=== PATIENT | female | born 1955 | race Two or more races ===

== ENCOUNTER 2019-03-17 13:25 | Inpatient (IN) | payer MEDICAID ==
[~2019-03-17] VITALS: Ht 165.1 cm; Wt 60.1 kg
--- NOTE | 2019-03-17 13:45 | NUR ---
G-TUBE REPLACEMENT S/P G-TUBE DISLODGED. PT NON VERBAL, EYES OPEN, ON TRACH, RR EVEN & UNLABORED. PT SKIN INTACT, PLACED ON CHICK ROOM SUPERVISOR & ON TRACH VENT. AWAITING EVAL BY ERMD & WILL CONT TO MONITOR.
--- NOTE | 2019-03-17 14:41 | NUR ---
DR YOUNG SPEAKING WITH DR MCMILLAN
[2019-03-17] MEDS ORDERED: NA P133E RC (15:09)
[2019-03-17] MEDS ORDERED: CHLO473M5 MM (15:09)
[2019-03-17] MEDS ORDERED: FOLI0.8T GT (15:09)
[2019-03-17] MEDS ORDERED: GLUC1KIT IM (15:09)
[2019-03-17] MEDS ORDERED: INSU100V7 SQ ×2 (15:09)
[2019-03-17] MEDS ORDERED: INSU100V27 SQ (15:09)
[2019-03-17] MEDS ORDERED: AMLO5TAB9 GT (15:09)
[2019-03-17] MEDS ORDERED: ZINC1CAP2 GT (15:09)
[2019-03-17] MEDS ORDERED: MULT-447 GT (15:09)
[2019-03-17] MEDS ORDERED: ACET-2605 GT (15:09)
[2019-03-17] MEDS ORDERED: HEPA50008 SQ (15:09)
[2019-03-17] MEDS ORDERED: ALBU2.5V38 IH (15:09)
[2019-03-17] MEDS ORDERED: VIT500LI GT (15:09)
[2019-03-17] MEDS ORDERED: NUT.237L30 GT (15:09)
[2019-03-17] MEDS ORDERED: ACET-868 GT (15:09)
[2019-03-17] MEDS ORDERED: BISA10SU11 RC (15:09)
[2019-03-17] MEDS ORDERED: MAGN400O6 GT (15:09)
[2019-03-17] MEDS ORDERED: FAMO20TA8 GT (15:09)
[2019-03-17] MEDS ORDERED: CHLO118L6 TP (15:09)
[2019-03-17] MEDS ORDERED: IPRA3AMP23 IH (15:09)
--- NOTE | 2019-03-17 15:11 | NUR ---
PAGED DR EJ HAGER
--- NOTE | 2019-03-17 16:18 | NUR ---
DR. CASTILLO @ BS FOR GTUBE REPLACEMENT.
[2019-03-17] MEDS ORDERED: ZOLPIDEM TARTRATE 5 MG TABLET PO PRN (16:30)
[2019-03-17] MEDS ORDERED: MAGNESIUM HYDROXIDE 30 ML UDC GT PRN (16:30)
[2019-03-17] MEDS ORDERED: ACETAMINOPHEN 325 MG TABLET PO PRN ×2 (16:30)
[2019-03-17] MEDS ORDERED: Medication Not On Formulary EA (Glucagon,Human Recombinant (Glucagon Emergency Kit) 1 MG IM PRN (16:30)
[2019-03-17] MEDS ORDERED: BISACODYL SUPP (10 MG) 10 MG/SUPP.RECT SUPP.RECT RC PRN (16:30)
[2019-03-17] MEDS ORDERED: Z GUARD REMEDY 2 OZ OINT TP PRN (16:30)
[2019-03-17] MEDS ORDERED: MAGNESIUM HYDROXIDE 30 ML UDC PO PRN (16:30)
[2019-03-17] MEDS ORDERED: MISCELLANEOUS MED 1 EA EA GT PRN (16:30)
[2019-03-17] MEDS ORDERED: ONDANSETRON HCL/PF 4 MG/2 ML VIAL IVP PRN (16:30)
[2019-03-17] MEDS ORDERED: NA PHOS,M-B/NA PHOS,DI-BA 1 EA ENEMA RC PRN (16:30)
[2019-03-17] MEDS ORDERED: ALBUTEROL FS 2.5 MG/3 ML VIAL.NEB IH PRN (16:30)
[2019-03-17] MEDS ORDERED: MAG HYDROX/AL HYDROX/SIMETH 30 ML UDC PO PRN (16:30)
[2019-03-17] MEDS ORDERED: DIATR MEGLU/DIATRIZOATE SODIUM 30 ML BOTTLE (GASTROGRAPHIN) ONE (16:42)
--- NOTE | 2019-03-17 17:20 | NUR ---
RN NOTES patient received on the ventilator at this time, no sob noted, patient shows no s/s of pain at this time. Photos taken and is in the chart. Patient on tele monitoring. R AC 20 patent at this time. Bed at the lowest setting, call light within reach, side rails up x2.
--- NOTE | 2019-03-17 17:25 | NUR ---
RT PATIENT RECEIVED TRACH'D ON [facility] VENT WITH SETTINGS PER MD ORDER. FIRST LINE SUPERVISOR DONE. AMBU BAG PLACED AT HEAD OF BED. SUCTIONED SMALL AMOUNTS OF THICK, PALE YELLOW SECRETIONS. NO SOB OR SIGNS OF DISTRESS NOTED AT THIS TIME. WILL CONTINUE TO MONITOR THE PATIENT FOR ANY CHANGES. Addendum: 03/17/19 at 1740 by ELVIRA FREDERICK RT Amended: Links added.
[2019-03-17 18:00] VITALS: BP 122/86
--- NOTE | 2019-03-17 18:34 | NUR ---
RN CLOSING NOTES Patient remains on a ventilator, no sob noted, no s/s of pain at this time. NSR 90's rhytm with R AC 20 with no IVF at this time. Patient on diaper. Bed at the lowest setting, call light within reach, will give report to NOC RN for NEIL bedside.
--- NOTE | 2019-03-17 19:30 | NUR ---
PLANT AND MACHINERY VALUER NOTES RECEIVED ON BED A/O X1-2,CONFUSED,ON TRACH TO VENT AC-22,TV-500,FIO2-40%,PEEP-5 TOLERATED WELL.PATIENT HAS A TENDENCY TO PULLED OUT TUBINGS,ESPECIALLY TRACH,S/P GT TUBE REPLACEMENT,POSITIVE PLACEMENT NOTED.NO SALINE LOCK.HOB ELEVATED.WILL CONTINUE TO MONITOR STATUS.
--- NOTE | 2019-03-17 19:30 | NUR ---
LABORATORY ASSOCIATE NOTES SR -96 ON TELE MONITOR.
--- NOTE | 2019-03-17 20:00 | NUR ---
HAND BUNCH MAKER NOTES REFUSED BP CHECK AND ORAL TEMP
[2019-03-17] MEDS: ALBUTEROL FS 2.5 MG/0.5 ML VIAL.NEB NEB SCH (20:20)
[2019-03-17] MEDS: IPRATROPIUM NEB FS 0.5 MG/2.5 ML AMPUL.NEB NEB SCH (20:20)
--- NOTE | 2019-03-17 20:40 | NUR ---
RECREATIONAL SPECIALIST NOTES MD PAGE FOR GT FEEDING.
--- NOTE | 2019-03-17 20:45 | NUR ---
BARN OPERATOR NOTES MD GOMEZ CALLED BACK, MADE AWARE OF GT FEEDING AND SAID OKAY TO START.
--- NOTE | 2019-03-17 20:50 | NUR ---
GIS ADMINISTRATOR NOTES PATIENT ATTEMPTED TO PULL OUT TRACH TUBINGS,ALSO SHE PULLED OUT SALINE LOCK ON RIGHT AC,HOSPITALIST KIMBERLI MADE AWARE,WITH ORDER FOR BILATERAL SOFT RESTRAINTS,NO SITTER AVAILABLE.
--- NOTE | 2019-03-17 20:53 | NUR ---
ACCREDITED LEGAL SECRETARY NOTES STARTED ON BILATERAL SOFT RESTRAINTS ORDERED.
[2019-03-17] MEDS: CHLORHEXIDINE GLUCONATE 15 ML UDC MM SCH (21:00)
[2019-03-17] MEDS: HEPARIN SODIUM, PORCINE 5000 UNITS/1 ML VIAL SQ SCH (21:12)
--- NOTE | 2019-03-17 21:30 | NUR ---
PLOWING GARDENS NOTES ACCU-CHECK BLOOD SUGAR CHECK 112,NO INSULIN COVERAGE.PATIENT REFUSED LANTUS.TO START WITH GT FEEDING.
[2019-03-17] MEDS: BLOOD SUGAR DIAGNOSTIC 1 EACH STRIP IN SCH (21:42)
[2019-03-17] MEDS: INSULIN GLARGINE, 100 UNIT/ML CARTRIDGE SQ SCH (22:00)
--- NOTE | 2019-03-17 23:18 | NUR ---
PT RCVD TRACH'D ON MECHANICAL VENT WITH CHARTED SETTINGS. PT TYRONE TX WELL. SX DONE. PT TRACH IS PATENT AND SECURE. VENT ALARMS APPEAR TO BE FUNCTIONING PROPERLY. AMBU BAG AT BEDSIDE. VENT PLUGGED INTO RED OUTLET. NO SOB NOTED. Addendum: 03/17/19 at 2320 by AKOSUA ARAGON RT Amended: Links added.
[2019-03-17] MEDS ORDERED: GLUCERNA 1.2 1,000 ML BOTTLE GT SCH (23:30)
[2019-03-18] VITALS (7 sets, daily range): BP systolic 119–155; BP diastolic 48–76
--- NOTE | 2019-03-18 | NUR ---
MS RN NOTES REFUSED ORAL TEMP
--- NOTE | 2019-03-18 00:48 | NUR ---
PROFESSIONAL ATHLETES COACH NOTES STARTED ON GT FEEDING GLUCERNA 1.2 AT 20ML/HR RATE,TO INCREASED TO 55M/HR TOLERATED
[2019-03-18] MEDS: IPRATROPIUM NEB FS 0.5 MG/2.5 ML AMPUL.NEB NEB SCH ×4 (01:45→19:54)
[2019-03-18] MEDS: ALBUTEROL FS 2.5 MG/0.5 ML VIAL.NEB NEB SCH ×4 (01:45→19:54)
--- NOTE | 2019-03-18 04:45 | NUR ---
ANALYTICS MANAGER NOTES PATIENT PULLED OUT GT WHILE HAVING MORNING CARE BY KADE RUBIO,NO BLEEDING NOTED.
--- NOTE | 2019-03-18 05:00 | NUR ---
REGISTERED NURSE NURSERY NOTES TRIED TO RE INSERT BUT ITS ALREADY CLOSED.CHARGE NURSE MADE AWARE.STOMA COVERED WITH DRY GAUZE.
--- NOTE | 2019-03-18 05:15 | NUR ---
RESTORATION SILVERSMITH NOTES DR GOMEZ MADE AWARE,WITH ORDER TO RE CONSULT FOR GI,TO NOTIFY MORNING HOSPITALIST TOO NOTED AND CARRIED OUT.CHARGE NURSE CARLEY AWARE.
[2019-03-18] MEDS: BLOOD SUGAR DIAGNOSTIC 1 EACH STRIP IN SCH ×4 (05:55→21:39)
--- NOTE | 2019-03-18 06:00 | NUR ---
LINUX ADMIN NOTES ACCU-CHECK BLOOD SUGAR CHECK 108,NO INSULIN COVERAGE.GT FEEDING ON HOLD
[2019-03-18 06:23] LABS: BASOPHILS # (AUTO) 0.1 /CMM (0.0-0.2); BASOPHILS % (AUTO) 0.6 % (0.0-2.0); HEMATOCRIT 27 % (33-45); HEMOGLOBIN 9.2 g/dL (11.5-14.8); LYMPHOCYTES # (AUTO) 4.1 /CMM (0.8-4.8); LYMPHOCYTES % (AUTO) 42.6 % (20.0-44.0); MEAN CORPUSCULAR HGB CONC 34 g/dl (31.0-36.0); MEAN CORPUSCULAR VOLUME 94 fL (82-100); MONOCYTES # (AUTO) 0.5 /CMM (0.1-1.30); MONOCYTES % (AUTO) 5.7 % (2.0-12.0); NEUTROPHILS # (AUTO) 4.5 /CMM (1.8-8.9); NEUTROPHILS % (AUTO) 47.1 % (43.0-81.0); PLATELET COUNT (AUTO) 584 /CMM (150-450); RED BLOOD CELL COUNT(AUTO) 2.92 MIL/uL (4.0-5.2); WHITE BLOOD COUNT (AUTO) 9.6 K/uL (4.3-11.0)
--- NOTE | 2019-03-18 06:33 | NUR ---
WALLPAPER INSPECTOR NOTES CALM AND QUIET AT THE MOMENT.GT OUT,AWAITING GI CONSULT,GT FEEDING ON HOLD.STILL ON BILATERAL SOFT RESTRAINTS.VENT SETTINGS TOLERATED WELL.IN NO ACUTE DISTRESS.WILL ENDORSE TO DAY NURSE FOR NEIL.
[2019-03-18 06:50] LABS: CALCIUM, SERUM 9.2 mg/dL (8.5-10.1); CREATININE 2.3 mg/dL (0.6-1.3); MAGNESIUM 2.5 mg/dL (1.8-2.4); PHOSPHORUS 5.2 mg/dL (2.5-4.9); POTASSIUM 3.5 mmol/L (3.5-5.1)
--- NOTE | 2019-03-18 07:45 | NUR ---
TELE/RN NOTE THE PATIENT IS RECEIVED IN BED. ALERT AND ORIENTED X2. ON VENT AND TRACH AND TOLERATES IT WELL. LEFT HAND G 22 PATENT AND SALINE LOCKED. GT SITE WITH NO GT. DR CASTILLO IS MADE AWARE. BED LOW AND LOCKED. SIDE RAILS UP X3. CALL LIGHT WITHIN REACH. WILL CONTINUE TO MONITOR.
[2019-03-18] MEDS: FOLIC ACID 1 MG TABLET GT SCH (09:00)
[2019-03-18] MEDS: MULTIVIT W/MINERALS 1 TAB TABLET GT SCH (09:00)
[2019-03-18] MEDS: ASCORBIC ACID 500 MG TABLET GT SCH (09:00)
[2019-03-18] MEDS: FAMOTIDINE (20 MG) 20 MG TABLET GT SCH (09:00)
[2019-03-18] MEDS: ZINC SULFATE 220 MG CAPSULE GT SCH (09:00)
[2019-03-18] MEDS: AMLODIPINE BESYLATE 5 MG TABLET GT SCH (09:00)
[2019-03-18] MEDS: INSULIN GLARGINE, 100 UNIT/ML CARTRIDGE SQ SCH ×2 (09:00→21:44)
[2019-03-18] MEDS: CHLORHEXIDINE GLUCONATE 15 ML UDC MM SCH ×2 (11:24→21:31)
[2019-03-18] MEDS: HEPARIN SODIUM, PORCINE 5000 UNITS/1 ML VIAL SQ SCH ×2 (11:26→21:32)
--- NOTE | 2019-03-18 11:32 | NUR ---
TELE/RN NOTE LANTUS 15 UNITS DUE AT 0900 IS NOT ADMINISTERED DUE TO BLOOD SUGAR OF 95 AND THE PATIENT IS NOT GETTING GT FEEDING AND IS NPO.
--- NOTE | 2019-03-18 12:01 | NUR ---
RT PATIENT RECEIVED TRACH'D ON [facility] VENT WITH SETTINGS PER MD. PT AWAKE AND CONFUSED. CRM MARKETING EXECUTIVE DONE. SPARE TRACH AND AMBU BAG AT HEAD OF BED. ALARMS ON AND FUNCTIONING PROPERLY. TRACH PATENT AND SECURE. VENT PLUGGED INTO RED OUTLET. TX'S GIVEN ORDERED. NO ADVERSE REACTIONS OBSERVED. SUCTIONED AND MONITORED PRN. NO SOB OR SIGNS OF DISTRESS NOTED. WILL CONTINUE TO MONITOR FOR ANY CHANGES. Addendum: 03/18/19 at 1759 by ELVIRA FREDERICK RT Amended: Links added.
[2019-03-18] MEDS ORDERED: CHLORHEXIDINE GLUCONATE 4% 118 ML BOTTLE TP SCH (16:30)
--- NOTE | 2019-03-18 18:55 | NUR ---
TELE/RN NOTE THE PATIENT IN BED ALERT AND ORIENTED X2. PATIENT IS ON VENT AND TRACH. TOLERATES THEM WELL. THE PATIENT IS NO APPARENT DISTRESS. LEFT HAND G 22 PATENT AND SALINE LOCKED. GT SITE WITH NO GT BUT THE SITE IS COVERED WITH DRY DRESSING AND NO DISCHARGE NOTED. WAITING FOR GI CONSULT (DR CASTILLO IS FOLLOWING UP WITH GI SPECIALIST) EXTERNAL TELE BOX READING IS SR 96. BED LOW AND LOCKED. SIDE RAILS UP X3. CALL LIGHT WITHIN REACH. WILL ENDORSE TO APPLICATION INTEGRATION ARCHITECT.
--- NOTE | 2019-03-18 19:48 | NUR ---
CENTRAL SUPPLY SUPERVISOR RECEIVE PT IN BED, A/O 1-2, TELEMETRY SR 96 HR ON CARDIAC MONITORING. BILATERAL SOFT WRIT RESTRAINT ON. NO S/S OF DISTRESS, STABLE,. SAFETY MEASURES AT ALL TIMES. WILL CONTINUE TO MONITOR. GT FEEDING ON HOLD
--- NOTE | 2019-03-18 20:31 | NUR ---
PT RCVD TRACH'D ON MECHANICAL VENT WITH CHARTED SETTINGS. PT TYRONE TX WELL. SX DONE. PT TRACH IS PATENT AND SECURE. VENT ALARMS APPEAR TO BE FUNCTIONING PROPERLY. AMBU BAG AT BEDSIDE. VENT PLUGGED INTO RED OUTLET. NO SOB NOTED. Addendum: 03/18/19 at 2030 by AKOSUA ARAGON RT Amended: Links added.
--- NOTE | 2019-03-18 20:31 | NUR ---
HOSPITALIST CALLED BACK SPOKE TO DR. GOMEZ ASKED IF HE WOULD LIKE TO ORDER ANY IV FLUIDS PT ON GT FEEDING AND IT WAS HELD AWAITING GI CONSULT PT DIABETIC. PER DR. GOMEZ OBTAINED NEW ORDERS OF D5 1/2 NS @ 75ML/HR SCHEDULED IV. READ BACK AND VERIFIED ORDERS NOTED AND CARRIED OUT
[2019-03-18] MEDS: IV D5/0.45 NACL 1,000 ML IV SCH (20:56)
--- NOTE | 2019-03-18 21:44 | NUR ---
CARLOS JONES PT ON IVF FLUID LANTUS GIVEN
[2019-03-19] VITALS: BP 150/81
[2019-03-19 00:50] VITALS: BP 150/81
[2019-03-19] MEDS: IPRATROPIUM NEB FS 0.5 MG/2.5 ML AMPUL.NEB NEB SCH ×4 (01:27→20:03)
[2019-03-19] MEDS: ALBUTEROL FS 2.5 MG/0.5 ML VIAL.NEB NEB SCH ×4 (01:27→20:03)
[2019-03-19 04:00] VITALS: BP 150/72
--- NOTE | 2019-03-19 06:15 | NUR ---
FOOD PRODUCTION MACHINE OPERATOR PT ASLEEP AND EASILY AWAKEN. PT ON MECHANICAL VENT TOLERATING SETTINGS ORDERED. RESPIRATIONS EVEN AND UNLABORED. NO S/S OF DISTRESS O2 SAT 100%. NEEDS ATTENDED AND ANTICIPATED, KEPT CLEAN, DRY AND COMFORTABLE. OFFLOAD HEELS AND ELBOWS AT ALL TIMES. REPOSITION EVERY 2 HOURS. ON TELEMETRY SR 97 HR MACHINE INKER. BILATERAL SOFT WRIST RESTRAINT CHECK CIRCULATION Q2HR. SAFETY MEASURES AT ALL TIMES. WILL ENDORSE NEXT SHIFT POC.
[2019-03-19 06:23] LABS: BASOPHILS % (AUTO) 0.4 % (0.0-2.0); EOSINOPHILS % (AUTO) 1.2 % (0.0-6.0); HEMATOCRIT 26 % (33-45); HEMOGLOBIN 8.4 g/dL (11.5-14.8); LYMPHOCYTES # (AUTO) 3.2 /CMM (0.8-4.8); LYMPHOCYTES % (AUTO) 32.1 % (20.0-44.0); MEAN CORPUSCULAR HGB CONC 32 g/dl (31.0-36.0); MEAN CORPUSCULAR VOLUME 96 fL (82-100); MONOCYTES # (AUTO) 0.5 /CMM (0.1-1.30); MONOCYTES % (AUTO) 5.2 % (2.0-12.0); NEUTROPHILS % (AUTO) 61.1 % (43.0-81.0); PLATELET COUNT (AUTO) 493 /CMM (150-450); RED BLOOD CELL COUNT(AUTO) 2.74 MIL/uL (4.0-5.2); WHITE BLOOD COUNT (AUTO) 9.9 K/uL (4.3-11.0)
[2019-03-19] MEDS: BLOOD SUGAR DIAGNOSTIC 1 EACH STRIP IN SCH ×5 (06:43→21:01)
--- NOTE | 2019-03-19 07:27 | NUR ---
ECONOMIST RESEARCH ASSISTANT NOTES PATIENT RESTING IN BED, NO RESPIRATORY DISTRESS, NO S/S OF PAIN OR DISCOMFORT AT THIS TIME. PATIENT ON GRAPHIC ARTIST READING SR 99, VENT SETTINGS PRESCRIBED. PATIENT ON CITLALLI SOFT WRIST RESTRAINTS, REMOVED AND CHECKED SKIN FOR REDNESS AND CIRCULATION. IV D5 1/2 NS INFUSING AT 75ML/HR ON THE LT HAND #22G INTACT AND PATENT. PATIENT'S NEEDS ATTENDED. BED ON LOWEST LOCKED POSITION, CALL LIGHT WITHIN REACH. WILL CONTINUE TO MONITOR.
[2019-03-19 08:00] VITALS: BP 156/94
[2019-03-19 08:27] LABS: CALCIUM, SERUM 6.9 mg/dL (8.5-10.1); CREATININE 2.1 mg/dL (0.6-1.3); POTASSIUM 2.9 mmol/L (3.5-5.1)
[2019-03-19] MEDS: INSULIN GLARGINE, 100 UNIT/ML CARTRIDGE SQ SCH ×2 (08:34→21:03)
[2019-03-19] MEDS: HEPARIN SODIUM, PORCINE 5000 UNITS/1 ML VIAL SQ SCH ×2 (08:37→20:52)
[2019-03-19] MEDS: CHLORHEXIDINE GLUCONATE 15 ML UDC MM SCH ×2 (08:42→21:01)
[2019-03-19] MEDS: ASCORBIC ACID 500 MG TABLET GT SCH (09:00)
[2019-03-19] MEDS: AMLODIPINE BESYLATE 5 MG TABLET GT SCH (09:00)
[2019-03-19] MEDS: MULTIVIT W/MINERALS 1 TAB TABLET GT SCH (09:00)
[2019-03-19] MEDS: ZINC SULFATE 220 MG CAPSULE GT SCH (09:00)
[2019-03-19] MEDS: FAMOTIDINE (20 MG) 20 MG TABLET GT SCH (09:00)
[2019-03-19] MEDS: FOLIC ACID 1 MG TABLET GT SCH (09:00)
--- NOTE | 2019-03-19 09:30 | NUR ---
MANAGER FAMILY NOTES DONNY FROM LAB REPORTED CRITICAL VALUE GLUCOSE 1080, INFORMED DR. CASTILLO. PER MD STOP D5 1/[address] CASTILLO THAT PATIENT'S POC GLUCOSE AT 0900 WAS AT 202, GAVE LANTUS TO PT ORDERED. PATIENT WILL CONTINUE TO MONITOR AND RECHECK BLOOD SUGAR.
[2019-03-19] MEDS: IV D5/0.45 NACL 1,000 ML IV SCH (09:50)
[2019-03-19] MEDS ORDERED: DEXTROSE 50%-WATER 50 ML DISP.SYRIN IV PRN ×3 (10:00→18:42)
[2019-03-19] MEDS ORDERED: INSULIN REGULAR, HUMAN 100 UNIT/ML 3 ML VIAL SQ PRN ×2 (10:00→18:41)
[2019-03-19] MEDS ORDERED: POTASSIUM CHLORIDE 20 MEQ POWDER PACKET GT SCH (11:30)
--- NOTE | 2019-03-19 11:55 | NUR ---
WOUND CARE CONSULT: PT PRESENTS WITH DRY WOUND TO LEFT SIDE OF HEAD AND SACRAL STAGE 3 ULCER, PRESENT ON ADMISSION. RECOMMENDATIONS MADE FOR SKIN PROTECTION. DISCUSSED WITH NURSING STAFF. HILDA ISOFLEX LOW AIRLOSS BED TO BE PLACED. DEFER TO SURGICAL TEAM FOR WOUND TREATMENT PLAN. DR MEYER NOTIFIED OF SURGICAL CONSULT REQUEST. WILL SEE PRN. MAXWELL IN AGREEMENT WITH PLAN OF CARE. Addendum: 03/19/19 at 1156 by JACQUIE ISABEL WNDNU Amended: Links added.
[2019-03-19] MEDS: Potassium Chloride 20 MEQ in IV NS 0.9% 1,000 ML IV PRN ×2 (12:33→20:58)
[2019-03-19 16:00] VITALS: BP 155/55
--- NOTE | 2019-03-19 17:40 | NUR ---
POULTRY SLAUGHTERER NOTES PATIENT'S BS CHECKED AT 46MG/DL GAVE D50 ORDERED. PATIENT IN NO ACUTE DISTRESS. WILL REASSESS AND RECHECK IN [address] CASTILLO.
--- NOTE | 2019-03-19 18:30 | NUR ---
TROUBLE LOCATER NOTES PATIENT'S BS RECHECKED AND AT 175MG/DL. NOTIFIED DR. CASTILLO AND PER MD IF BS IS >250 COVER WITH MILD SLIDING SCALE, IF BS IS <250 HOLD INSULIN, IF BS IS <50 GIVE D50. ACUCHECK Q4HRS. WILL CARRY OUT ORDERS AND ENDORSE TO ONCOMING NURSE.
--- NOTE | 2019-03-19 18:55 | NUR ---
OFFICE SUPPORT ASSOCIATE NOTES PATIENT AWAKE IN BED, IN NO RESPIRATORY DISTRESS, NO S/S OF DISCOMFORT AT THIS TIME. PATIENT ON VENT SETTINGS PRESCRIBED. SKIN WARM TO TOUCH. IV KCL IN NS INFUSING AT 125ML/HR ON THE LT HAND #22G, INTACT AND PATENT. PATIENT'S NEEDS ATTENDED, BED ON LOWEST LOCKED POSITION, CALL LIGHT WITHIN REACH. WILL ENDORSE TO ONCOMING NURSE.
--- NOTE | 2019-03-19 19:24 | NUR ---
HIP HOP ARTIST RECEIVE PT IN BED AWAKE OPENS EYES A/O X 1 TO (NAME) RESPONDS TO VERBAL STIMULI. ON MECHANICAL VENTILATOR TOLERATED SETTINGS RESPIRATIONS EVEN AND UNLABORED. BILATERAL SOFT WRIT RESTRAINT ON. NO S/S OF DISTRESS. SAFETY MEASURES AT ALL TIMES. WILL CONTINUE TO MONITOR
[2019-03-19 20:00] VITALS: BP 150/79
[2019-03-19] MEDS: HYDROGEL DRESSING 90 GM TUBE TP SCH (20:48)
--- NOTE | 2019-03-19 20:52 | NUR ---
ANDREA HOSPITALIST SPOKE TO DR. GOMEZ AND CLARIFY HEPARIN DOSE FOR TONIGHT. PER HOLD HEPARIN 5,000 UNITS SQ DOSE FOR TONIGHT 2100 03/19/19 FOR PROCEDURE TOMORROW GT PLACEMENT 03/20/19
--- NOTE | 2019-03-19 21:50 | NUR ---
RT NOTE PT RECEIVED TRACHED ON MECHANICAL VENTILATION. AMBU BAG/BACK UP TRACH @ BEDSIDE. TX GIVEN, NO ADVERSE REACTIONS NOTED. SX DONE, TRACH SECURED AND PATENT. ALARMS ON AND AUDIBLE. NO SOB NOTED AT THIS TIME. CONT. PULSE OX CONNECTED. WILL MONITOR T/O SHIFT. Addendum: 03/19/19 at 2151 by LOVE PRICE RT Amended: Links added.
[2019-03-20] VITALS (8 sets, daily range): BP systolic 145–181; BP diastolic 67–87
[2019-03-20] MEDS: BLOOD SUGAR DIAGNOSTIC 1 EACH STRIP IN SCH ×6 (01:25→21:23)
[2019-03-20] MEDS: ALBUTEROL FS 2.5 MG/0.5 ML VIAL.NEB NEB SCH ×4 (01:36→19:17)
[2019-03-20] MEDS: IPRATROPIUM NEB FS 0.5 MG/2.5 ML AMPUL.NEB NEB SCH ×4 (01:36→19:17)
[2019-03-20] MEDS: Potassium Chloride 20 MEQ in IV NS 0.9% 1,000 ML IV PRN (05:05)
[2019-03-20 05:58] LABS: BASOPHILS # (AUTO) 0.1 /CMM (0.0-0.2); BASOPHILS % (AUTO) 0.7 % (0.0-2.0); EOSINOPHILS % (AUTO) 1.8 % (0.0-6.0); HEMATOCRIT 29 % (33-45); HEMOGLOBIN 9.5 g/dL (11.5-14.8); LYMPHOCYTES # (AUTO) 3.6 /CMM (0.8-4.8); LYMPHOCYTES % (AUTO) 34.2 % (20.0-44.0); MEAN CORPUSCULAR HGB CONC 32 g/dl (31.0-36.0); MEAN CORPUSCULAR VOLUME 95 fL (82-100); MONOCYTES # (AUTO) 0.5 /CMM (0.1-1.30); NEUTROPHILS # (AUTO) 6.2 /CMM (1.8-8.9); NEUTROPHILS % (AUTO) 58.3 % (43.0-81.0); PLATELET COUNT (AUTO) 472 /CMM (150-450); RED BLOOD CELL COUNT(AUTO) 3.09 MIL/uL (4.0-5.2); WHITE BLOOD COUNT (AUTO) 10.6 K/uL (4.3-11.0)
--- NOTE | 2019-03-20 06:11 | NUR ---
MOLDING SUPERVISOR PT SLEPT WELL, ON MECHANICAL VENT TOLERATING SETTINGS ORDERED. O2 SAT AT 100%. RESPIRATIONS EVEN AND UNLABORED.ON BLOOD BANK SPECIALIST SINUS TACHY 101 HR. ALL NEEDS ATTENDED AND ANTICIPATED, KEPT CLEAN, DRY AND COMFORTABLE. OFFLOAD HEELS AND ELBOWS AT ALL TIMES. REPOSITION EVERY 2 HOURS. BILATERAL SOFT WRIST RESTRAINT CHECK CIRCULATION Q2HR.GOOD SKIN CARE AT ALL TIMES. SAFETY MEASURES AT ALL TIMES. WILL ENDORSE NEXT SHIFT POC.
[2019-03-20 06:18] LABS: CALCIUM, SERUM 9.2 mg/dL (8.5-10.1); CREATININE 1.8 mg/dL (0.6-1.3)
--- NOTE | 2019-03-20 07:20 | NUR ---
VICE PRESIDENT FOR INSTRUCTION NOTES PATIENT AWAKE IN BED ALERT AND ORIENTED X1. PATIENT IN NO RESPIRATORY DISTRESS, VENT SETTINGS PRESCRIBED. PATIENT WITH NO S/S OF DISCOMFORT AT THIS TIME. PATIENT ON CITLALLI. SOFT WRIST RESTRAINTS, REMOVED AND CHECKED FOR REDNESS AND CIRCULATION. IV ACCESS SITE INTACT AND PATENT ON THE LEFT HAND #22G. PATIENT'S NEEDS ATTENDED. BED ON LOWEST LOCKED POSITION, CALL LIGHT WITHIN REACH. WILL CONTINUE TO MONITOR.
[2019-03-20] MEDS: HEPARIN SODIUM, PORCINE 5000 UNITS/1 ML VIAL SQ SCH ×2 (09:00→21:33)
[2019-03-20] MEDS: INSULIN GLARGINE, 100 UNIT/ML CARTRIDGE SQ SCH ×2 (09:00→21:23)
--- NOTE | 2019-03-20 09:35 | NUR ---
OUTSIDE CUTTER NOTES EGD AND GT PLACEMENT BEING DONE AT BEDSIDE BY DR. PAGAN.
--- NOTE | 2019-03-20 10:25 | NUR ---
COMPUTER ENGINEERING PROFESSOR NOTES PATIENT DONE WITH THE PROCEDURE, TOLERATED WELL. PATIENT IN STABLE CONDITION, VSS. NO RESPIRATORY DISTRESS, NO S/S OF ANY DISCOMFORT. ORDERS GIVEN BY DR. PAGAN, ALL CARRIED OUT. WILL CONTINUE TO MONITOR PATIENT.
[2019-03-20] MEDS: CHLORHEXIDINE GLUCONATE 15 ML UDC MM SCH ×2 (10:39→21:23)
[2019-03-20] MEDS: ASCORBIC ACID 500 MG TABLET GT SCH (10:39)
[2019-03-20] MEDS: MULTIVIT W/MINERALS 1 TAB TABLET GT SCH (10:40)
[2019-03-20] MEDS: ZINC SULFATE 220 MG CAPSULE GT SCH (10:40)
[2019-03-20] MEDS: FAMOTIDINE (20 MG) 20 MG TABLET GT SCH (10:40)
[2019-03-20] MEDS: AMLODIPINE BESYLATE 5 MG TABLET GT SCH (10:40)
[2019-03-20] MEDS: FOLIC ACID 1 MG TABLET GT SCH (10:41)
[2019-03-20] MEDS: HYDROGEL DRESSING 90 GM TUBE TP SCH (10:52)
--- NOTE | 2019-03-20 17:00 | NUR ---
RT NOTE: PATIENT RECEIVED TRACHED ON MECHANICAL VENT. ALARMS VERIFIED AND AUDIBLE. SUCTIONED AND LAVAGED THICK YELLOW SECRETIONS THROUGHOUT THE DAY. VENT PLUGGED INTO RED OUTLET. AMBU BAG AT [facility].
--- NOTE | 2019-03-20 18:40 | NUR ---
STRUCTURAL ENGINEERING DRAFTING OFFICER NOTES PATIENT RESTING IN BED, NO RESPIRATORY DISTRESS, NO S/S OF ANY DISCOMFORT. PATIENT ON VENT SETTINGS PRESCRIBED. IV INFUSING ON THE LEFT HAND #22G INTACT AND PATENT. PATIENT'S NEEDS ATTENDED. BED ON LOWEST LOCKED POSITION, CALL LIGHT WITHIN REACH. WILL ENDORSE TO ONCOMING NURSE.
--- NOTE | 2019-03-20 19:15 | NUR ---
environmental journalist: received report from mary ortiz. pt s/p gtube replacement today, with orders from dr michelle to keep pt npo x meds tonight and start gtube feeding in am. pt received with bilateral soft wrist restraint in placed, pt able to move and wiggle arms and hands, good capillary refill noted, radial pulses palpable, intact, no s/s of impediment in circulation noted. pt has episode of pulling out gtube. pt is mech vent/trache dependent with the ff setting: ac 22, tv 500, peep 5, fio2 40%, shiley #8. on continuous pulse oximetry, spo2 showing 100%. ambu bag available at bed side. clinical alarms check and are audible. s/p debridement yesterday of sacral wound and scalp wound, by dr bergman. dressing in placed, c/d/i. iv access on left hand g 22 patent and flushing well, infusing with ns + 20meq kcl at 125ml/hr. on kci mattress. safety precautions for fall initiated, call light in reach, will continue to monitor.
--- NOTE | 2019-03-20 20:30 | NUR ---
return agent airport/gtube: new gtube in placed, abdomen soft to touch, with active bowel sound heard upon auscultation. no active bleeding noted on gtube site. no residual obtained, able to flush with water without meeting any resistance. gtube to start in am, npo x meds per gi.
--- NOTE | 2019-03-20 21:24 | NUR ---
RN NOTES/BLOOD GLUCOSE 104: BLOOD GLUCOSE CHECK RESULT IS 104, PT ON NPO, LANTUS 10UNITS SCHEDULE FOR TONIGHT, HELD PER CLINICAL ASSESSMENT. RISK FOR HYPOGLYCEMIA. PT ON NS +20MEQ KCL AT 125ML/HR. WILL CONTINUE TO MONITOR FOR S/S OF HYPOGLYCEMIA.
[2019-03-20] MEDS: HYDROCODONE/APAP 5/325MG 1 EACH TABLET PO PRN (21:32)
--- NOTE | 2019-03-20 21:33 | NUR ---
RN NOTES/PRN NORCO: UTILIZED TEMI ZENDEJAS PS, RESULT IS 08/07, PRN NORCO 5/325 MG ADMINISTERED , PT ON NPO X MEDS. PT NOTED TO HAVE FACIAL GRIMACE RESTLESS, UNEASY. WILL CONTINUE MONITORING PT.
--- NOTE | 2019-03-20 23:31 | NUR ---
RN NOTES/ELEVATED BP: NOTIFIED HOSPITALIST PUSHCART PEDDLER/DR GOMEZ REGARDING ELEVATED BP RANGING 165- 171/87, PER MD T/O FOR SBP >170, GIVE IV HYDRALAZINE 10 MG IVP Q6HRS PRN. ORDERS READ BACK, VERIFIED AND CARRIED OUT.
--- NOTE | 2019-03-20 23:35 | NUR ---
RN NOTES: RECHECK BP AT THIS TIME, BP RESULT IS 153/85 HR 103, NO FACIAL GRIMACE NOTED, APPEARS CALM AND COMFORTABLE. NOTIFIED CORPORATE COMMUNICATIONS INTERN,WILL HOLD OFF ON PRN HYDRALAZINE FOR NOW BUT WILL CONTINUE MONITORING BP, ORDERS IN PLACED FOR PRN HYDRALAZINE
[2019-03-21] VITALS (7 sets, daily range): BP systolic 153–179; BP diastolic 72–89
[2019-03-21] MEDS ORDERED: hydrALAZINE HCL IV 20 MG VIAL IV PRN
[2019-03-21] MEDS: ALBUTEROL FS 2.5 MG/0.5 ML VIAL.NEB NEB SCH ×4 (00:17→19:27)
[2019-03-21] MEDS: IPRATROPIUM NEB FS 0.5 MG/2.5 ML AMPUL.NEB NEB SCH ×4 (00:18→19:27)
[2019-03-21] MEDS: Potassium Chloride 20 MEQ in IV NS 0.9% 1,000 ML IV PRN (00:28)
[2019-03-21] MEDS: BLOOD SUGAR DIAGNOSTIC 1 EACH STRIP IN SCH ×6 (01:37→21:17)
[2019-03-21] MEDS: INSULIN REGULAR, HUMAN 100 UNIT/ML 3 ML VIAL SQ PRN ×3 (01:38→21:23)
--- NOTE | 2019-03-21 01:38 | NUR ---
RN NOTES/GLUCOSE 156: BLOOD GLUCOSE RESULT IS 156, NO INSULIN GIVEN PER SLIDING SCALE. WILL CONTINUE MONITORING PT.
[2019-03-21] MEDS ORDERED: hydrALAZINE HCL IV 20 MG VIAL ONE (04:32)
[2019-03-21] MEDS: GLUCERNA 1.2 1,000 ML BOTTLE GT SCH (04:43)
--- NOTE | 2019-03-21 04:44 | NUR ---
RN NOTES/PRN HYDRALAZINE: PRN HYDRALAZINE 10MG IVP ADMINISTERED FOR BP 179/89 HR 100. ON TELE MONITORING SINUS RHYTHM.
--- NOTE | 2019-03-21 05:07 | NUR ---
RN NOTES/BLOOD GLUCOSE 181, RESTART GTUBE FEEDS: BLOOD GLUCOSE CHECK, RESULT IS 181, NO INSULIN COVERAGE GIVEN PER SLIDING SCALE. RESTARTED ON GTUBE FEEDING, GLUCERNA 1.2 AT 30ML/HR, WILL ADVANCE TOLERATED. GOAL IS 55ML/HR. ABDOMEN SOFT TO TOUCH WITH ACTIVE BOWEL SOUND HEARD, NO RESIDUAL NOTED, EASILY FLUSH WITH WATER.
[2019-03-21 06:22] LABS: BASOPHILS % (AUTO) 0.4 % (0.0-2.0); EOSINOPHILS % (AUTO) 3.5 % (0.0-6.0); HEMATOCRIT 29 % (33-45); HEMOGLOBIN 9.4 g/dL (11.5-14.8); LYMPHOCYTES # (AUTO) 3.8 /CMM (0.8-4.8); LYMPHOCYTES % (AUTO) 37.3 % (20.0-44.0); MEAN CORPUSCULAR HGB CONC 33 g/dl (31.0-36.0); MEAN CORPUSCULAR VOLUME 96 fL (82-100); MONOCYTES # (AUTO) 0.7 /CMM (0.1-1.30); MONOCYTES % (AUTO) 7.2 % (2.0-12.0); NEUTROPHILS # (AUTO) 5.2 /CMM (1.8-8.9); NEUTROPHILS % (AUTO) 51.6 % (43.0-81.0); PLATELET COUNT (AUTO) 409 /CMM (150-450); RED BLOOD CELL COUNT(AUTO) 2.99 MIL/uL (4.0-5.2); WHITE BLOOD COUNT (AUTO) 10.1 K/uL (4.3-11.0)
[2019-03-21 06:28] LABS: CALCIUM, SERUM 8.9 mg/dL (8.5-10.1); CREATININE 1.6 mg/dL (0.6-1.3); POTASSIUM 5.2 mmol/L (3.5-5.1)
--- NOTE | 2019-03-21 06:45 | NUR ---
EOSS: PT TOLERATED MECH VENT SETTING WELL. TELE MONITORING SINUS TACHY HR 104. DRESSING ON SACRAL AND LEFT SCALP AREA REMAINS C/D/I, NO ACTIVE BLEEDING NOTED. RESTARTED ON G-TUBE FEEDING, GLUCERNA 1.2 AT 30ML/HR, GOAL IS 55ML/HR. ABDOMEN REMAINS SOFT TO TOUCH WITH ACTIVE BOWEL SOUND HEARD UPON AUSCULTATION. NO G-TUBE RESIDUAL NOTED. IV ACCESS REMAINS PATENT AND FLUSHING WELL, INFUSING WITH IVF ORDERED. NO S/S OF IV INFILTRATION NOTED. REMAINS ON BILATERAL SOFT WRIST RESTRAINT, PT ABLE TO MOVE AND WIGGLE ARMS AND HANDS. GOOD CAPILLARY REFILL NOTED, RADIAL PULSES PALPABLE, NO S/S OF IMPEDIMENT IN CIRCULATION NOTED. NO S/S OF ACTIVE BLEEDING NOTED. VS REMAINS STABLE, NEEDS ATTENDED. SAFETY PRECAUTIONS FOR FALL REMAINS ENGAGED, CALL LIGHT IN REACH, WILL ENDORSE TO DAY RN FOR CONTINUITY OF CARE.
[2019-03-21] MEDS: FOLIC ACID 1 MG TABLET GT SCH (08:35)
[2019-03-21] MEDS: FAMOTIDINE (20 MG) 20 MG TABLET GT SCH (08:35)
[2019-03-21] MEDS: MULTIVIT W/MINERALS 1 TAB TABLET GT SCH (08:35)
[2019-03-21] MEDS: ASCORBIC ACID 500 MG TABLET GT SCH (08:35)
[2019-03-21] MEDS: ZINC SULFATE 220 MG CAPSULE GT SCH (08:36)
[2019-03-21] MEDS: AMLODIPINE BESYLATE 5 MG TABLET GT SCH (08:36)
[2019-03-21] MEDS: CHLORHEXIDINE GLUCONATE 15 ML UDC MM SCH ×2 (08:37→21:17)
[2019-03-21] MEDS: HEPARIN SODIUM, PORCINE 5000 UNITS/1 ML VIAL SQ SCH ×2 (08:37→21:19)
[2019-03-21] MEDS: HYDROGEL DRESSING 90 GM TUBE TP SCH (08:38)
--- NOTE | 2019-03-21 09:08 | NUR ---
NEON TUBE BENDER NOTES PT SEEN AND EXAMINED BY DR. CASTILLO, PT TOLERATING GT FEEDING AT THIS TIME, DUE MEDS GIVEN.
[2019-03-21] MEDS: INSULIN GLARGINE, 100 UNIT/ML CARTRIDGE SQ SCH ×2 (09:12→21:22)
--- NOTE | 2019-03-21 09:16 | NUR ---
RN NOTES MD INFORMED ABOUT PATIENTS POTASSIUM LEVEL. MD ORDERED TO STOP IV FLUIDS.
[2019-03-21] MEDS ORDERED: SODIUM BICARBONATE 650 MG TABLET PO SCH (12:30)
[2019-03-21] MEDS: CITRIC ACID/SODIUM CITRATE (BICITRA)15 ML UDC GT SCH (16:32)
--- NOTE | 2019-03-21 19:00 | NUR ---
MORTICIAN HELPER NOTES PT IN BED, RESTING, ABLE TO MAKE NEEDS KNOWN, ABLE TO MOUTH WORDS, DENIES PAIN, NOT IN DISTRESS, VENT/TRACH IN PLACE, NO SOB, TOLERATING CURRENT GT FEEDING, NO RESIDUALS NOTED, FEEDING INCREASED TO 35ML/HR, NO NAUSEA/VOMITING, PM CARE RENDERED, ALL NEEDS ATTENDED.
--- NOTE | 2019-03-21 19:10 | NUR ---
rn notes/assessment: received report from natali ortiz. pt is [facility] vent/trache dependent with the ff setting: ac 22, tv 500, peep 5, fio2 40%, shiley #8. on continuous pulse oximetry, spo2 showing 100%. ambu bag available at bed side. clinical alarms check and are audible. awake, able to answer yes or no question by nodding, a/o x1. iv access on left hand g 22 patent and flushing well, pt s/p gtube replacement 03/[address] michelle, currently receiving glucerna 1.2 at 40ml/hr. s/p debridement of sacral wound and scalp wound, 03/[address] bergman. pt received with bilateral soft wrist restraint in placed, pt able to move and wiggle arms and hands, good capillary refill noted, radial pulses palpable, intact, no s/s of impediment in circulation noted. dressing in placed, c/d/i. on kci mattress. on tele monitoring sinus tachy 107. safety precautions for fall initiated, call light in reach, will continue to monitor.
--- NOTE | 2019-03-21 20:14 | NUR ---
hospitality internship/gtube patency: abdomen soft to touch with active bowel sound heard upon auscultation. no residual obtained, gtube able to flushed easily with 30cc of water. kept hob 30 degrees while on tube feeding to prevent aspiration.
[2019-03-21] MEDS: HYDROCODONE/APAP 5/325MG 1 EACH TABLET PO PRN (21:22)
--- NOTE | 2019-03-21 21:23 | NUR ---
RN NOTES/PRN NORCO: WENT TO THE ROOM, PT COMPLAINING OF BILATERAL LEG PAIN, CRYING AND RUBBING SITE, 10/07 PS, PRN NORCO 5/325 MG ADMINISTERED AT THIS TIME. WILL CONTINUE TO MONITOR AND REASSESS PT.
[2019-03-22] VITALS: BP 154/84
[2019-03-22 00:22] VITALS: BP 154/84
[2019-03-22] MEDS: BLOOD SUGAR DIAGNOSTIC 1 EACH STRIP IN SCH ×4 (00:56→13:40)
[2019-03-22] MEDS: INSULIN REGULAR, HUMAN 100 UNIT/ML 3 ML VIAL SQ PRN ×2 (00:57→05:09)
--- NOTE | 2019-03-22 00:57 | NUR ---
rn notes/glucose 198/gtube feeds 20hrs dose complete: blood glucose 1968, no insulin coverage given per sliding scale. gtube feeding dose completed, order is gtube feeding 55ml/hr x20hrs. current rate 40ml/hr. will restart feeding in 4hrs 0500am.
[2019-03-22] MEDS: ALBUTEROL FS 2.5 MG/0.5 ML VIAL.NEB NEB SCH ×3 (02:36→13:25)
[2019-03-22] MEDS: IPRATROPIUM NEB FS 0.5 MG/2.5 ML AMPUL.NEB NEB SCH ×3 (02:36→13:25)
[2019-03-22 04:08] VITALS: BP 150/78
[2019-03-22 04:09] VITALS: BP 150/78
[2019-03-22] MEDS: GLUCERNA 1.2 1,000 ML BOTTLE GT SCH (05:08)
--- NOTE | 2019-03-22 05:09 | NUR ---
rn notes/glucose 150/restart gtube feeds: blood glucose result is 150, no insulin coverage given per sliding scale. administer new bag of gtube feeding, no residual noted, advance rate to 50ml/hr, goal is 55ml/hr. glucerna 1.2 at 50ml/hr.
--- NOTE | 2019-03-22 06:46 | NUR ---
EOSS: REMAINS ON TELE MONITORING SINUS RHYTHM HR 85. PT TOLERATED MECH VENT SETTING WELL. REMAINS ON BILATERAL SOFT WRIST RESTRAINT, PT ABLE TO MOVE AND WIGGLE ARMS AND HANDS. GOOD CAPILLARY REFILL NOTED, RADIAL PULSES PALPABLE, NO S/S OF IMPEDIMENT IN CIRCULATION NOTED. ON G-TUBE FEEDING, GLUCERNA 1.2 AT 50ML/HR, GOAL IS 55ML/HR, NO RESIDUAL NOTED. IV ACCESS REMAINS PATENT AND FLUSHING WELL,ON HL. NO S/S OF IV INFILTRATION NOTED. NO S/S OF ACTIVE BLEEDING NOTED. POSSIBLE DC TODAY. VS REMAINS STABLE, NEEDS ATTENDED. SAFETY PRECAUTIONS FOR FALL REMAINS ENGAGED, CALL LIGHT IN REACH, WILL ENDORSE TO DAY RN FOR CONTINUITY OF CARE.
--- NOTE | 2019-03-22 07:00 | NUR ---
MEDICAL FEE CLERK OPENING NOTE: RECEIVED PATIENT ON BED, AWAKE AND RESPONSIVE. ON TELE MONITORING SINUS RHYTHM HR 85. [facility]. REMAINS ON BILATERAL SOFT WRIST RESTRAINT, PT ABLE TO MOVE AND WIGGLE ARMS AND HANDS. GOOD CAPILLARY REFILL NOTED, RADIAL PULSES PALPABLE, NO S/S OF IMPEDIMENT IN CIRCULATION NOTED. ON G-TUBE FEEDING, GLUCERNA 1.2 AT 50ML/HR, GOAL IS 55ML/HR, NO RESIDUAL NOTED. IV ACCESS REMAINS PATENT AND FLUSHING WELL,ON HL. NO S/S OF IV INFILTRATION NOTED. NO S/S OF ACTIVE BLEEDING NOTED. POSSIBLE DC TODAY. VS REMAINS STABLE, NEEDS ATTENDED. SAFETY PRECAUTIONS FOR FALL REMAINS ENGAGED, CALL LIGHT IN REACH, WILL CONTINUE TO MONITOR.
[2019-03-22 08:00] VITALS: BP_SYST 110; BP_SYST 165; BP_DIAS 68; BP_DIAS 78
[2019-03-22] MEDS: INSULIN GLARGINE, 100 UNIT/ML CARTRIDGE SQ SCH (09:00)
[2019-03-22] MEDS: CITRIC ACID/SODIUM CITRATE (BICITRA)15 ML UDC GT SCH (09:00)
[2019-03-22] MEDS: HEPARIN SODIUM, PORCINE 5000 UNITS/1 ML VIAL SQ SCH (09:00)
[2019-03-22] MEDS: FAMOTIDINE (20 MG) 20 MG TABLET GT SCH (09:26)
[2019-03-22] MEDS: FOLIC ACID 1 MG TABLET GT SCH (09:26)
[2019-03-22] MEDS: ASCORBIC ACID 500 MG TABLET GT SCH (09:26)
[2019-03-22 09:27] VITALS: BP 110/78
[2019-03-22] MEDS: AMLODIPINE BESYLATE 5 MG TABLET GT SCH (09:27)
[2019-03-22] MEDS: MULTIVIT W/MINERALS 1 TAB TABLET GT SCH (09:40)
[2019-03-22] MEDS: ZINC SULFATE 220 MG CAPSULE GT SCH (09:40)
[2019-03-22] MEDS: CHLORHEXIDINE GLUCONATE 15 ML UDC MM SCH (09:40)
[2019-03-22] MEDS: HYDROGEL DRESSING 90 GM TUBE TP SCH (09:40)
[2019-03-22] MEDS: HYDROCODONE/APAP 5/325MG 1 EACH TABLET PO PRN (13:39)
--- NOTE | 2019-03-22 16:00 | NUR ---
RN NOTE: PATIENT FOR DISCHARGE AND MICRO PHOTOGRAPHER AT 1700. RON SORIANO CALLED AND REPORT GIVEN TO ROBERT LANG
--- NOTE | 2019-03-22 17:30 | NUR ---
CORNER BLOCK CUTTERCUT AND PRINT MACHINE OPERATOR NOTE: PATIENT PICKED UP BY 2 EMT AND 1 RT FOR [facility]. IN STABLE CONDITION,TOLERATING VENT SETTINGS WELL. SKIN ASSESSMENT DONE NIGHT BEFORE. NO NEW ISSUES IDENTIFIED. IV SITE DISCONTINUED, NO ASE NOTED.
== END 2019-03-22 17:14 | DRG 951 ==
LOC: ER 13:28 → TELE 16:03
PROVIDERS: ADMIT Family Medicine; ATTEND Family Medicine
PROC: 5A1955Z Respiratory Ventilation, Greater than 96 Consecutive Hours (ICD-10-PCS; principal; 2019-03-17)
PROC: 0JB70ZZ Excision of Back Subcutaneous Tissue and Fascia, Open Approach (ICD-10-PCS; 2019-03-19)
PROC: 0KB00ZZ Excision of Head Muscle, Open Approach (ICD-10-PCS; 2019-03-19)
DX: K94.23 Gastrostomy malfunction (principal); Z99.11 Dependence on respirator [ventilator] status; G93.40 Encephalopathy, unspecified; J96.11 Chronic respiratory failure with hypoxia; L89.153 Pressure ulcer of sacral region, stage 3; N17.9 Acute kidney failure, unspecified; Y83.3 Surgical operation with formation of external stoma as the cause of abnormal reaction of the patient, or of later complication, without mention of misadventure at the time of the procedure; Y92.129 Unspecified place in nursing home as the place of occurrence of the external cause; I12.9 Hypertensive chronic kidney disease with stage 1 through stage 4 chronic kidney disease, or unspecified chronic kidney disease; N18.9 Chronic kidney disease, unspecified; E86.0 Dehydration; E11.22 Type 2 diabetes mellitus with diabetic chronic kidney disease; E11.65 Type 2 diabetes mellitus with hyperglycemia; E87.2 Acidosis; E87.5 Hyperkalemia; Z86.73 Personal history of transient ischemic attack (TIA), and cerebral infarction without residual deficits; Z79.4 Long term (current) use of insulin; Z79.51 Long term (current) use of inhaled steroids; Z79.01 Long term (current) use of anticoagulants; R13.10 Dysphagia, unspecified; L89.819 Pressure ulcer of head, unspecified stage
CPT/HCPCS: 31720; 36415; 43760; 71045-TC; 74018; 76770-TC; 80048-TC; 80061-TC; 82962-TC; 83735-TC; 84100-TC; 85025-TC; 85610-TC; 85730-TC; 86850-TC; 87081-TC; 94002-TC; 94003-TC; 94760-TC; 94762-TC; 94799-TC; 99082-TC; A6248; G0378; J0360; J0690; J1644; J1815; J2704; J3480; J3490; Q9963

== ENCOUNTER 2019-04-13 15:56 | Inpatient (IN) | payer MEDICAID ==
[~2019-04-13] VITALS: Ht 157.5 cm; Wt 56.8 kg
[~2019-04-13 15:56] MED LIST: ACET-2605 GT; ACET-868 GT; ALBU2.5V38 IH; AMLO5TAB9 GT; BISA10SU11 RC; CHLO118L6 TP; CHLO473M5 MM; FAMO20TA8 GT; FOLI0.8T GT; GLUC1KIT IM; HEPA50008 SQ; INSU100V27 SQ; INSU100V7 SQ; IPRA3AMP23 IH; MAGN400O6 GT; MULT-447 GT; NA P133E RC; NUT.237L30 GT; VIT500LI GT; ZINC1CAP2 GT
--- NOTE | 2019-04-13 16:00 | NUR ---
patient BIBpa from care facility due to elvated BUN/Crea. On vent, connected to the monitor and pulse ox. kept comfortable, will continue to monitor accordingly.
--- NOTE | 2019-04-13 16:30 | NUR ---
Mcelroy cath inserted, blood drawned and urine collected and sent to lab. Will continue to monitor accordingly.
[2019-04-13] MEDS ORDERED: NUT.237L67 (16:45)
[2019-04-13] MEDS ORDERED: LEVO500T75 PO (16:45)
[2019-04-13] MEDS ORDERED: LORA-259 GT (16:45)
[2019-04-13] MEDS ORDERED: NUTR1PAC14 PO (16:45)
[2019-04-13 17:04] LABS: BASOPHILS # (AUTO) 0.1 /CMM (0.0-0.2); BASOPHILS % (AUTO) 0.7 % (0.0-2.0); EOSINOPHILS % (AUTO) 5.6 % (0.0-6.0); HEMATOCRIT 29 % (33-45); HEMOGLOBIN 9.7 g/dL (11.5-14.8); LYMPHOCYTES # (AUTO) 3.9 /CMM (0.8-4.8); LYMPHOCYTES % (AUTO) 30.7 % (20.0-44.0); MEAN CORPUSCULAR HGB CONC 34 g/dl (31.0-36.0); MEAN CORPUSCULAR VOLUME 92 fL (82-100); MONOCYTES # (AUTO) 0.5 /CMM (0.1-1.30); MONOCYTES % (AUTO) 4.2 % (2.0-12.0); NEUTROPHILS # (AUTO) 7.5 /CMM (1.8-8.9); NEUTROPHILS % (AUTO) 58.8 % (43.0-81.0); PLATELET COUNT (AUTO) 462 /CMM (150-450); RED BLOOD CELL COUNT(AUTO) 3.16 MIL/uL (4.0-5.2); WHITE BLOOD COUNT (AUTO) 12.8 K/uL (4.3-11.0)
[2019-04-13 17:06] LABS: APPEARANCE,URINE Clear (CLEAR); BILIRUBIN,URINE Negative (NEGATIVE); BLOOD, URINE Negative Ery/uL (NEGATIVE); COLOR,URINE Yellow (YELLOW); KETONES,URINE Negative (NEGATIVE); LEUKOCYTE ESTERASE ,URINE Negative (NEGATIVE); NITRITE, URINE Negative (NEGATIVE); PROTEIN,URINE Negative (NEGATIVE); UGLUCOSE Negative (NEGATIVE); UROBILINOGEN,URINE 0.2 EU/dL (0.2)
--- NOTE | 2019-04-13 17:32 | NUR ---
RT REPORT, Pt. rec. IN ER 63 year old female NONE VERBAL trach'd ELIEZER XLT # 6 @9030 pt. placed on ventilator with noted settings. Vent alarms are set and audible with Ambu bag by bedside. PASTE UP WORKER cuff pressure done, Vent is plugged into red outlet. bilaterally rales B/S noted and sux'd for minimal amount of clear secretions, equal chest rise noted. pt. stable and continue to monitor. Addendum: 04/13/19 at 1735 by MONET WEBBER RT Amended: Links added.
[2019-04-13 17:50] LABS: CALCIUM, SERUM 9.9 mg/dL (8.5-10.1); CREATININE 2.6 mg/dL (0.6-1.3); POTASSIUM 4.3 mmol/L (3.5-5.1)
[2019-04-13 17:57] LABS: BILIRUBIN,DIRECT 0.1 mg/dL (0.0-0.2); BILIRUBIN,TOTAL 0.2 mg/dL (0.2-1.0)
[2019-04-13 17:58] LABS: TOTAL PROTEIN, SERUM 8.3 g/dL (6.4-8.2)
[2019-04-13] MEDS ORDERED: IV NS 0.9% 1,000 ML BAG IV ONE (18:30)
--- NOTE | 2019-04-13 19:04 | NUR ---
endorsed to Monet JONES for carie.
--- NOTE | 2019-04-13 19:15 | NUR ---
PT'S VENT IS ALARMING. PT DISCONNECTED THE VENT AND PULLED OUT HER IV. PT WAS CLEANED AND NEW LINENS APPLIED. PT HAS OH TO GRAVITY. PT WAS GIVEN AN WARM BLANKET AND 20G IV STARTED IN LAC.
[2019-04-13] MEDS ORDERED: BISACODYL SUPP (10 MG) 10 MG/SUPP.RECT SUPP.RECT RC PRN (19:30)
[2019-04-13] MEDS ORDERED: Z GUARD REMEDY 2 OZ OINT TP PRN (19:30)
[2019-04-13] MEDS ORDERED: ALBUTEROL FS 2.5 MG/3 ML VIAL.NEB IH PRN (19:30)
[2019-04-13] MEDS ORDERED: NA PHOS,M-B/NA PHOS,DI-BA 1 EA ENEMA RC PRN (19:30)
[2019-04-13] MEDS ORDERED: Medication Not On Formulary EA (Ipratropium/Albuterol Sulfate (Duoneb 2.5-0.5 Mg/3 Ml So IH SCH (19:30)
[2019-04-13] MEDS ORDERED: ACETAMINOPHEN 650 MG/SUPP.RECT RC PRN (19:30)
[2019-04-13] MEDS ORDERED: MAG HYDROX/AL HYDROX/SIMETH 30 ML UDC PO PRN (19:30)
[2019-04-13] MEDS ORDERED: DEXTROSE 50%-WATER 50 ML DISP.SYRIN IV PRN (19:30)
[2019-04-13] MEDS ORDERED: MAGNESIUM HYDROXIDE 30 ML UDC PO PRN (19:30)
[2019-04-13] MEDS ORDERED: ONDANSETRON HCL/PF 4 MG/2 ML VIAL IVP PRN (19:30)
[2019-04-13] MEDS ORDERED: MAGNESIUM HYDROXIDE 30 ML UDC GT PRN (19:30)
[2019-04-13] MEDS ORDERED: MISCELLANEOUS MED 1 EA EA GT PRN (19:30)
--- NOTE | 2019-04-13 19:39 | NUR ---
RT IS AT THE BEDSIDE FIXING THE VENT.
--- NOTE | 2019-04-13 19:42 | NUR ---
CALLED NURSING RADIATION THERAPIST RE: TELE BED.
--- NOTE | 2019-04-13 19:50 | NUR ---
RT IS AT THE BEDSIDE.
--- NOTE | 2019-04-13 19:53 | NUR ---
SPOKE TO THE NURSING DRUM PRINTER RE: ADMISSION.
--- NOTE | 2019-04-13 19:58 | NUR ---
PT IS GOING 308-2 TELE
--- NOTE | 2019-04-13 20:05 | NUR ---
CALLING REPORT TO TELE NURSE.
--- NOTE | 2019-04-13 20:14 | NUR ---
REPORT TO ROBERT STORY
[2019-04-13 20:30] VITALS: BP 100/63
--- NOTE | 2019-04-13 20:30 | NUR ---
RECEIVED PATIENT AWAKE, A/O X2 WITH NO DISTRESS NOTED. TRACH INTACT AND PATENT, PLACED ON VENT BY RT. GT INTACT AND PATENT. FC INTACT PATENT AND DRAINING CLEAR YELLOW URINE. PATIENT ABLE TO ANSWER YES/NO QUESTIONS. NO C/O PAIN OR DISCOMFORT. ROOM FREE OF CLUTTER AND BELONGINGS KEPT NEAR BEDSIDE. WILL CONTINUE TO MONITOR.
[2019-04-13] MEDS ORDERED: LEVOFLOXACIN 500 MG /D5W 100ML 500 MG in PREMIX 1 EA IV SCH (21:00)
[2019-04-13] MEDS: IV NS 0.9% 1,000 ML IV SCH (21:02)
[2019-04-13] MEDS: CHLORHEXIDINE GLUCONATE 15 ML UDC MM SCH (21:47)
[2019-04-13] MEDS: LORAZEPAM 1 MG TABLET GT PRN (21:49)
[2019-04-13] MEDS: HEPARIN SODIUM, PORCINE 5000 UNITS/1 ML VIAL SQ SCH (21:50)
[2019-04-13] MEDS ORDERED: BLOOD SUGAR DIAGNOSTIC 1 EACH STRIP IN SCH (22:00)
[2019-04-13] MEDS: INSULIN REGULAR, HUMAN 100 UNIT/ML 3 ML VIAL SQ PRN (22:15)
[2019-04-13] MEDS: INSULIN GLARGINE, 100 UNIT/ML CARTRIDGE SQ SCH (22:16)
[2019-04-13] MEDS: NEPRO 1,000 ML BOTTLE GT PRN (22:37)
[2019-04-14] VITALS: BP 119/73
[2019-04-14] MEDS: ALBUTEROL FS 2.5 MG/0.5 ML VIAL.NEB NEB SCH ×4 (01:51→20:04)
[2019-04-14] MEDS: IPRATROPIUM NEB FS 0.5 MG/2.5 ML AMPUL.NEB NEB SCH ×4 (01:51→20:04)
[2019-04-14 04:00] VITALS: BP 139/67
[2019-04-14] MEDS: BLOOD SUGAR DIAGNOSTIC 1 EACH STRIP IN SCH ×4 (05:36→23:38)
[2019-04-14] MEDS: INSULIN REGULAR, HUMAN 100 UNIT/ML 3 ML VIAL SQ PRN ×4 (05:39→23:41)
--- NOTE | 2019-04-14 06:31 | NUR ---
MS RN NOTES PATIENT AWAKE IN BED WITH NO DISTRESS NOTED. CALL LIGHT WITHIN REACH. TRACH INTACT AND PATENT WITH VENT SETTINGS ORDERED. ALL DUE MEDS GIVEN ORDERED WITH NO ASE. PERIPHERAL LINE INTACT AND PATENT. GTF RUNNING AT 45ML/HR AND TOLERATING WELL. FC INTACT AND DRAINED 1300ML CLEAR YELLOW URINE. PATIENT CONSTANTLY TRYING TO PULL ALL TUBES/LINES THROUGHOUT SHIFT DESPITE REDIRECTION AND REORIENTATION. PRN 1MG ATIVAN GIVEN BUT INEFFECTIVE. SPOKE WITH SHAKIR WEST WITH ORDER FOR BILATERAL HAND MITTENS. PLACED ON PATIENT WITH NO NEW SKIN BREAKDOWN OR DISCOLORATION NOTED. NO FACIAL GRIMACING OR GROANING TO INDICATE PAIN OR DISCOMFORT. BED IN LOW LOCK SETTING WITH BED ALARM ON AND FUNCTIONING PROPERLY. ALL BELONGINGS KEPT NEAR BEDSIDE. WILL ENDORSE TO ONCOMING SHIFT. Addendum: 04/14/19 at 0643 by JADA HERNANDEZ RN SUPERVISOR MELT HOUSE NOTES
[2019-04-14 07:15] LABS: BASOPHILS % (AUTO) 0.3 % (0.0-2.0); EOSINOPHILS % (AUTO) 1.3 % (0.0-6.0); HEMATOCRIT 27 % (33-45); HEMOGLOBIN 9.4 g/dL (11.5-14.8); LYMPHOCYTES # (AUTO) 3.8 /CMM (0.8-4.8); LYMPHOCYTES % (AUTO) 27.3 % (20.0-44.0); MEAN CORPUSCULAR HGB CONC 35 g/dl (31.0-36.0); MEAN CORPUSCULAR VOLUME 90 fL (82-100); MONOCYTES # (AUTO) 0.5 /CMM (0.1-1.30); MONOCYTES % (AUTO) 3.6 % (2.0-12.0); NEUTROPHILS # (AUTO) 9.4 /CMM (1.8-8.9); NEUTROPHILS % (AUTO) 67.5 % (43.0-81.0); PLATELET COUNT (AUTO) 487 /CMM (150-450); RED BLOOD CELL COUNT(AUTO) 2.96 MIL/uL (4.0-5.2)
[2019-04-14 07:34] LABS: CALCIUM, SERUM 9.8 mg/dL (8.5-10.1); CREATININE 2.5 mg/dL (0.6-1.3); MAGNESIUM 2.1 mg/dL (1.8-2.4); PHOSPHORUS 2.7 mg/dL (2.5-4.9); POTASSIUM 3.5 mmol/L (3.5-5.1)
[2019-04-14 07:47] LABS: THYROID STIMULATING HORMONE 1.109 uIU/mL (0.358-3.74)
[2019-04-14 08:00] VITALS: BP 132/78
--- NOTE | 2019-04-14 08:00 | NUR ---
BOBBIN COIL WINDER OPENING NOTES Received Patient awake and resting in bed. A/O x 1, non-verbal. VS stable with no acute distress. Breathing even and unlabored on trachea and vent with no respiratory distress. No signs and symptoms of pain at this time. Telemonitor in place and patent reading Sinus Tach with HR-104. Mcelroy Cath in place and patent with clear, yellow output noted. G-Tube in place and patent with 3ml residual noted and Nephro infusing at 45ml/hr. Patient tolerating well. 20g PIV on LAC clean, intact, patent and flushing well with NS infusing at 50ml/hr. NPO precautions in place. Safety precautions in place. Bed locked and set to lowest position with side rails x 3 up. Bilateral mittens in place. Bilateral hands, warm and intact. Will continue to monitor circulation. All needs rendered at this time. Call light within reach. Will continue to monitor.
[2019-04-14] MEDS: ZINC SULFATE 220 MG CAPSULE GT SCH (09:30)
[2019-04-14] MEDS: ASCORBIC ACID 500 MG TABLET GT SCH (09:30)
[2019-04-14] MEDS: CHLORHEXIDINE GLUCONATE 15 ML UDC MM SCH ×2 (09:30→21:25)
[2019-04-14] MEDS: MULTIVIT W/MINERALS 1 TAB TABLET GT SCH (09:30)
[2019-04-14] MEDS: PANTOPRAZOLE 40 MG TABLET.DR PO SCH (09:30)
[2019-04-14] MEDS: FOLIC ACID 1 MG TABLET PO SCH (09:30)
[2019-04-14] MEDS: FAMOTIDINE (20 MG) 20 MG TABLET GT SCH (09:30)
[2019-04-14] MEDS: HEPARIN SODIUM, PORCINE 5000 UNITS/1 ML VIAL SQ SCH ×2 (09:31→21:26)
[2019-04-14] MEDS: INSULIN GLARGINE, 100 UNIT/ML CARTRIDGE SQ SCH ×2 (09:33→22:20)
[2019-04-14] MEDS ORDERED: FEE PK DOSING 1 MIN EA MC ONE (10:24)
[2019-04-14] MEDS ORDERED: VANCOMYCIN 1 GM in IV D5W 250 ML IV SCH (11:00)
[2019-04-14] MEDS ORDERED: PIPERACILLIN /TAZOBACTAM 3.375 G in IV D5W 50 ML IV SCH (12:00)
[2019-04-14] MEDS: IV NS 0.9% 1,000 ML IV SCH ×2 (15:30→23:57)
[2019-04-14 16:00] VITALS: BP 135/82
[2019-04-14] MEDS: PIPERACILLIN /TAZOBACTAM 3.375 G in IV D5W 100 ML IV SCH (19:00)
--- NOTE | 2019-04-14 19:11 | NUR ---
CHANGE OF SHIFT REPORT Patient in bed, trach intact, vent settings per RT. Sinus tach in the Tele monitor. Abd presence of GTube, minimal gastric residual. Mcelroy cath in place. Fall/skin/aspiration precaution maintained.
--- NOTE | 2019-04-14 19:40 | NUR ---
POWER SWEEPER OPERATOR CLOSING NOTES Patient awake and resting in bed. A/O x 1, non-verbal. VS stable with no acute distress. Breathing even and unlabored on trachea and vent with no respiratory distress. No signs and symptoms of pain at this time. Telemonitor in place and patent reading Sinus Tach with HR-119. Mcelroy Cath in place and patent with clear, yellow output noted. G-Tube in place and patent. 20g PIV on LAC clean, intact, patent and flushing well with NS infusing at 50ml/hr. NPO precautions in place. Safety precautions in place. Bed locked and set to lowest position with side rails x 3 up. Bilateral mittens in place. Bilateral hands, clean, warm and intact. All needs rendered at this time. Call light within reach. Will endorse plan of care to oncoming shift.
[2019-04-14 20:00] VITALS: BP 153/78
[2019-04-14] MEDS: NEPRO 1,000 ML BOTTLE GT PRN (22:55)
[2019-04-15] VITALS (8 sets, daily range): BP systolic 141–182; BP diastolic 79–94
[2019-04-15] MEDS: PIPERACILLIN /TAZOBACTAM 3.375 G in IV D5W 100 ML IV SCH ×3 (02:13→17:31)
[2019-04-15] MEDS: IPRATROPIUM NEB FS 0.5 MG/2.5 ML AMPUL.NEB NEB SCH ×4 (02:14→20:11)
[2019-04-15] MEDS: ALBUTEROL FS 2.5 MG/0.5 ML VIAL.NEB NEB SCH ×4 (02:14→20:12)
[2019-04-15] MEDS: ACETAMINOPHEN 325 MG TABLET PO PRN ×2 (04:58→22:24)
[2019-04-15] MEDS ORDERED: hydrALAZINE HCL 25 MG TABLET PEG ONE (05:00)
[2019-04-15] MEDS: BLOOD SUGAR DIAGNOSTIC 1 EACH STRIP IN SCH ×3 (05:26→17:30)
[2019-04-15] MEDS: INSULIN REGULAR, HUMAN 100 UNIT/ML 3 ML VIAL SQ PRN ×4 (05:29→17:34)
--- NOTE | 2019-04-15 06:21 | NUR ---
END OF SHIFT REPORT Patient in bed, eyes open, non verbal. Trach intact, vent setting remains the same, suction PRN. Sinus Tach in the Tele monitor. IVF infusing, IV Antibiotic as scheduled. Elevated BP, notified IVANAN Taveras. Given Hydralazine 25mg via Gtube x1. Repositioned x2 person, offload heels at all times. Wound consult to follow. Will endorse to Oncoming RN.
[2019-04-15 06:50] LABS: BASOPHILS % (AUTO) 0.2 % (0.0-2.0); EOSINOPHILS % (AUTO) 0.1 % (0.0-6.0); HEMATOCRIT 29 % (33-45); HEMOGLOBIN 9.7 g/dL (11.5-14.8); LYMPHOCYTES # (AUTO) 4.2 /CMM (0.8-4.8); LYMPHOCYTES % (AUTO) 19.3 % (20.0-44.0); MEAN CORPUSCULAR HGB CONC 34 g/dl (31.0-36.0); MEAN CORPUSCULAR VOLUME 91 fL (82-100); MONOCYTES # (AUTO) 0.7 /CMM (0.1-1.30); MONOCYTES % (AUTO) 3.3 % (2.0-12.0); NEUTROPHILS # (AUTO) 16.9 /CMM (1.8-8.9); NEUTROPHILS % (AUTO) 77.1 % (43.0-81.0); PLATELET COUNT (AUTO) 464 /CMM (150-450); RED BLOOD CELL COUNT(AUTO) 3.16 MIL/uL (4.0-5.2); WHITE BLOOD COUNT (AUTO) 21.9 K/uL (4.3-11.0)
[2019-04-15 07:40] LABS: CALCIUM, SERUM 9.1 mg/dL (8.5-10.1); CREATININE 2.3 mg/dL (0.6-1.3); PHOSPHORUS 2.6 mg/dL (2.5-4.9); POTASSIUM 3.2 mmol/L (3.5-5.1)
--- NOTE | 2019-04-15 07:50 | NUR ---
FLEECER OPENING NOTES RECEIVED PATIENT IN BED, A/O X 2. PATIENT ABLE TO NODE YES OR NO. PATIENT ON VENT SETTINGS PER RT. BREATHING EVENLY WITH NO ACUTE SIGNS OF DISTRESS. TRACH INTACT, CLEAN SITE, AC # 22. PATIENT DENIES ANY PAIN AT THE MOMENT. G-TUBE SITE CLEAN AND INTACT. FC IN PLACE AND POTENT DRAINING CLEAR, YELLOW URINE. LFA IV PRESENT AND PATENT INFUSING NS AT 50ML/HR. PATIENT ON EXTERNAL CARDIAC MONITORING WITH A CURRENT READING OF SINUS TACH 112 BPM. SAFETY PRECAUTIONS IN PLACE; BED IN LOW POSITION AND LOCKED, RAILS UP X2, CALL LIGHT WITHIN REACH. WILL CONTINUE TO MONITOR PATIENT.
[2019-04-15] MEDS: FOLIC ACID 1 MG TABLET PO SCH (08:37)
[2019-04-15] MEDS: MULTIVIT W/MINERALS 1 TAB TABLET GT SCH (08:37)
[2019-04-15] MEDS: ASCORBIC ACID 500 MG TABLET GT SCH (08:37)
[2019-04-15] MEDS: ZINC SULFATE 220 MG CAPSULE GT SCH (08:37)
[2019-04-15] MEDS: FAMOTIDINE (20 MG) 20 MG TABLET GT SCH (08:37)
[2019-04-15] MEDS: CHLORHEXIDINE GLUCONATE 15 ML UDC MM SCH ×2 (08:38→21:34)
[2019-04-15] MEDS: HEPARIN SODIUM, PORCINE 5000 UNITS/1 ML VIAL SQ SCH ×2 (08:38→21:37)
[2019-04-15] MEDS: INSULIN GLARGINE, 100 UNIT/ML CARTRIDGE SQ SCH ×2 (08:41→21:40)
[2019-04-15] MEDS: PANTOPRAZOLE 40 MG TABLET.DR PO SCH (08:46)
--- NOTE | 2019-04-15 09:23 | NUR ---
RT RECEIVED [facility] WITH SETTINS PER MD ORDER. RN CLINICAL DOCUMENTATION DONE. SPARE TRACH AND AMBU BAG AT BEDSIDE. ALARMS ON AND WORKING PROPERLY. VENT PLUGGED INTO RED OUTLET. BREATHING TX'S GIVEN ORDERED. NO ADVERSE REACTIONS OBSERVED. SUCTIONED AND MONITORED PRN. NO SOB NOTED. WILL CONTINUE TO MONITOR FOR ANY CHANGES. Addendum: 04/15/19 at 1812 by ELVIRA FREDERICK RT Amended: Links added.
[2019-04-15] MEDS: VANCOMYCIN 0.75 GM in IV D5W 250 ML IV SCH (11:21)
[2019-04-15] MEDS ORDERED: POTASSIUM CHLORIDE 20 MEQ TAB.PRT.SR PO ONE (11:30)
[2019-04-15] MEDS: IV NS 0.9% 1,000 ML IV SCH (17:46)
--- NOTE | 2019-04-15 18:42 | NUR ---
ASSOCIATE VETERINARIAN CLOSING NOTES PATIENT IN BED, A/O X 2, AT TIMES RESTLESS TRYING TO PULL MITTENS OUT. PATIENT ABLE TO NODE YES OR NO. PATIENT ON VENT SETTINGS PER RT. BREATHING EVENLY WITH NO ACUTE SIGNS OF DISTRESS SATURATING AT 100%. TRACH INTACT, CLEAN SITE, AC # 22. PATIENT VISITED BY RT AND BREATHING TREATMENTS PERFORMED. PATIENT TOLERATED WELL. PATIENT DENIES ANY PAIN AT THE MOMENT. G-TUBE SITE CLEAN AND INTACT. FC IN PLACE AND POTENT DRAINING CLEAR, YELLOW URINE. LFA IV PRESENT AND PATENT INFUSING NS AT 50ML/HR. PATIENT ON EXTERNAL CARDIAC MONITORING WITH A CURRENT READING OF SINUS TACH 120 BPM. SAFETY PRECAUTIONS IN PLACE; BED IN LOW POSITION AND LOCKED, RAILS UP X2, CALL LIGHT WITHIN REACH. WILL CONTINUE TO MONITOR PATIENT.
[2019-04-15] MEDS ORDERED: CHLORHEXIDINE GLUCONATE 4% 118 ML BOTTLE TP SCH (19:30)
--- NOTE | 2019-04-15 19:31 | NUR ---
CHANGE OF SHIFT REPORT Patient in bed, eyes open. Trach intact, vent settings per RT. Sinus tach in the Tele monitor. Abd presence of GTube, minimal gastric residual. Mcelroy cath in place. Fall/skin/aspiration precaution maintained. Sputum, urine specimen to be collected.
[2019-04-15] MEDS ORDERED: DEXTROSE 50%-WATER 50 ML DISP.SYRIN IV PRN (20:30)
[2019-04-15] MEDS: NEPRO 1,000 ML BOTTLE GT PRN (22:16)
[2019-04-15] MEDS: LORAZEPAM 1 MG TABLET GT PRN (22:22)
[2019-04-16] VITALS: BP 164/76
[2019-04-16 00:13] VITALS: BP 164/76
[2019-04-16] MEDS: BLOOD SUGAR DIAGNOSTIC 1 EACH STRIP IN SCH ×4 (00:23→17:17)
[2019-04-16] MEDS: INSULIN REGULAR, HUMAN 100 UNIT/ML 3 ML VIAL SQ PRN ×4 (00:29→17:19)
[2019-04-16] MEDS ORDERED: hydrALAZINE HCL 25 MG TABLET PEG ONE (01:00)
[2019-04-16] MEDS: IPRATROPIUM NEB FS 0.5 MG/2.5 ML AMPUL.NEB NEB SCH ×4 (02:08→19:53)
[2019-04-16] MEDS: ALBUTEROL FS 2.5 MG/0.5 ML VIAL.NEB NEB SCH ×4 (02:08→19:53)
[2019-04-16] MEDS: PIPERACILLIN /TAZOBACTAM 3.375 G in IV D5W 100 ML IV SCH ×3 (02:33→18:22)
[2019-04-16 04:00] VITALS: BP 132/70
--- NOTE | 2019-04-16 06:00 | NUR ---
END OF SHIFT REPORT Patient in bed, eyes open, non verbal. Trach intact, vent setting remains the same, suction PRN. Sinus Tach in the Tele monitor. IVF infusing, IV Antibiotic as scheduled. Elevated BP, notified IVANNA Taveras. Elevated BP resolved with PRN Hydralazine x1. Repositioned x2 person, offload heels at all times. Gtube intact, minimal gastric residual. Mcelroy cath to gravity, bag off the floor. Will endorse to Oncoming RN.
--- NOTE | 2019-04-16 07:00 | NUR ---
Tele/RN Opening Note Received patient in bed, awake and able to responds all stimuli. Pt. does no appear pain or any discomfort. Skin is warm to touch, clean/dry. Kept lower bed of position with elevated HOB. Pr is on ventilator, no s/s of respiratory distress. Will continue to monitor.
[2019-04-16 08:00] VITALS: BP 119/65
[2019-04-16] MEDS: PANTOPRAZOLE 40 MG TABLET.DR PO SCH (08:11)
[2019-04-16] MEDS: HEPARIN SODIUM, PORCINE 5000 UNITS/1 ML VIAL SQ SCH ×2 (08:20→20:46)
[2019-04-16] MEDS: FAMOTIDINE (20 MG) 20 MG TABLET GT SCH (08:22)
[2019-04-16] MEDS: ZINC SULFATE 220 MG CAPSULE GT SCH (08:22)
[2019-04-16] MEDS: ASCORBIC ACID 500 MG TABLET GT SCH (08:23)
[2019-04-16] MEDS: FOLIC ACID 1 MG TABLET PO SCH (08:23)
[2019-04-16] MEDS: MULTIVIT W/MINERALS 1 TAB TABLET GT SCH (08:23)
[2019-04-16] MEDS: INSULIN GLARGINE, 100 UNIT/ML CARTRIDGE SQ SCH ×2 (08:24→22:16)
[2019-04-16] MEDS: CHLORHEXIDINE GLUCONATE 15 ML UDC MM SCH ×2 (08:24→20:56)
[2019-04-16 08:30] LABS: CALCIUM, SERUM 9.4 mg/dL (8.5-10.1); CREATININE 2.2 mg/dL (0.6-1.3); POTASSIUM 3.4 mmol/L (3.5-5.1)
[2019-04-16] MEDS: VANCOMYCIN 0.75 GM in IV D5W 250 ML IV SCH (10:07)
[2019-04-16] MEDS: LORAZEPAM 1 MG TABLET GT PRN (10:31)
[2019-04-16] MEDS ORDERED: methylPREDNISolone SOD SUCC 40 MG/ML VIAL IV ONE (11:00)
[2019-04-16] MEDS ORDERED: BENZONATATE 100 MG CAPSULE PO PRN (11:00)
[2019-04-16] MEDS ORDERED: POTASSIUM CHLORIDE 10 MEQ TABLET.SA PO ONE (12:00)
--- NOTE | 2019-04-16 12:24 | NUR ---
WOUND CARE CONSULT WOUND CARE RECEIVED CONSULT FOR LEFT BUTTOCK REDNESS, DISCOLORATION. WOUND CARE WILL DEFER CONSULT AND TREATMENT PLANS TO PLASTIC SURGICAL TEAM WHO ARE CURRENTLY FOLLOWING THIS PATIENT. PATIENT WITH MARILIA AT 13, ALL PRESSURE ULCER PREVENTION MEASURES ARE NOTED TO BE IN PLACE AT THIS TIME. WILL SEE PRN.
[2019-04-16 16:00] VITALS: BP 157/90
[2019-04-16] MEDS: IV NS 0.9% 1,000 ML IV SCH (16:57)
--- NOTE | 2019-04-16 18:00 | NUR ---
Tele/RN Closing Note Patient in bed comfortably, no appears pain or any discomfort. Noticed pt attempted pulled out ventilator tube, and started soft wrist restrain. No s/s of respiratory distress, kept lower bed position with HOB. Call light within reach, will endorse shift production supervisor.
--- NOTE | 2019-04-16 19:10 | NUR ---
RN OPENING NOTES Received patient on bed, on vent with settings noted, no SOB/respiratory distress noted. On tele monitor with ST noted. No s/sx of discomfort noted at this time. With IVF infusing well as ordered. With FC indwelling well, with clear yellow urine output noted. Kept on bed clean, dry and comfortable. On fall and aspiration precautions. Call light within easy reach. Will continue to monitor accordingly.
--- NOTE | 2019-04-16 19:20 | NUR ---
GREEN HIDE INSPECTOR NOTES PATIENT NOTED MULTIPLE TIMES DISCONNECTING VENT WITH MITTENS ON AND TRYING TO TO COME OF THE BED. EDUARDO GOULD MADE AWARE ORDERS TO CHANGE RESTRAINTS TO SOFT WRIST RESTRAINTS. NOTED AND CARRIED OUT.
[2019-04-16 20:00] VITALS: BP_SYST 157; BP_SYST 176; BP_DIAS 77; BP_DIAS 82
[2019-04-16] MEDS: OSELTAMIVIR PHOSPHATE 75 MG CAPSULE PO SCH (20:42)
[2019-04-16] MEDS ORDERED: MEROPENEM 1 G in IV NS 0.9% 100 ML IV SCH (21:00)
[2019-04-17] VITALS: BP 176/82
[2019-04-17] MEDS: BLOOD SUGAR DIAGNOSTIC 1 EACH STRIP IN SCH ×5 (00:44→23:43)
[2019-04-17] MEDS: INSULIN REGULAR, HUMAN 100 UNIT/ML 3 ML VIAL SQ PRN ×4 (00:46→23:52)
[2019-04-17] MEDS: IPRATROPIUM NEB FS 0.5 MG/2.5 ML AMPUL.NEB NEB SCH ×4 (01:13→18:42)
[2019-04-17] MEDS: ALBUTEROL FS 2.5 MG/0.5 ML VIAL.NEB NEB SCH ×4 (01:13→18:42)
[2019-04-17] MEDS: LORAZEPAM 1 MG TABLET GT PRN (02:29)
[2019-04-17] MEDS ORDERED: hydrALAZINE HCL 25 MG TABLET PO SCH (02:30)
[2019-04-17 04:00] VITALS: BP 151/91
--- NOTE | 2019-04-17 06:44 | NUR ---
RN CLOSING NOTES Patient asleep on bed, on vent with settings noted. On tele monitor with Sinus tach noted. With bilateral soft wrist restrain, patient noted pulling off her vent. All nursing needs attended. Due meds given as ordered. Kept on bed clean, dry and comfortable. Call light within easy reach. On fall and aspiration precautions. Endorsed.
--- NOTE | 2019-04-17 07:15 | NUR ---
MS RN NOTES PATIENT IN BED EYES CLOSED, EASY TO AROUSE.HEAD OF BED ELEVATED. ON VENT WITH ORDERED SETTING. NO ACUTE DISTRESS NOTED. BREATHING UNLABORED. NO SOB NOTED. IV ACCESS PATENT AND INTACT, NO REDNESS, NO SWELLING. BILATERAL WRIST RESTRAINT CHECKED WITH GOOD CIRCULATION. SAFETY MEASURES IN PLACE. CALL LIGHT WITHIN REACH. WILL CONTINUE TO MONITOR ACCORDINGLY.
[2019-04-17 07:46] LABS: BASOPHILS # (AUTO) 0.1 /CMM (0.0-0.2); BASOPHILS % (AUTO) 0.5 % (0.0-2.0); EOSINOPHILS % (AUTO) 0.3 % (0.0-6.0); HEMATOCRIT 29 % (33-45); HEMOGLOBIN 9.5 g/dL (11.5-14.8); LYMPHOCYTES % (AUTO) 30.1 % (20.0-44.0); MEAN CORPUSCULAR HGB CONC 33 g/dl (31.0-36.0); MEAN CORPUSCULAR VOLUME 94 fL (82-100); MONOCYTES # (AUTO) 0.8 /CMM (0.1-1.30); NEUTROPHILS # (AUTO) 10.6 /CMM (1.8-8.9); NEUTROPHILS % (AUTO) 64.1 % (43.0-81.0); PLATELET COUNT (AUTO) 454 /CMM (150-450); RED BLOOD CELL COUNT(AUTO) 3.07 MIL/uL (4.0-5.2); WHITE BLOOD COUNT (AUTO) 16.6 K/uL (4.3-11.0)
[2019-04-17 08:00] VITALS: BP 165/87
[2019-04-17] MEDS: MEROPENEM 1 G in IV NS 0.9% 100 ML IV SCH ×2 (08:11→20:16)
[2019-04-17] MEDS: PANTOPRAZOLE 40 MG TABLET.DR PO SCH (08:11)
[2019-04-17 09:02] LABS: CALCIUM, SERUM 9.6 mg/dL (8.5-10.1); CREATININE 2.1 mg/dL (0.6-1.3); MAGNESIUM 2.2 mg/dL (1.8-2.4); PHOSPHORUS 3.9 mg/dL (2.5-4.9); POTASSIUM 3.7 mmol/L (3.5-5.1)
[2019-04-17] MEDS: ZINC SULFATE 220 MG CAPSULE GT SCH (09:23)
[2019-04-17] MEDS: FAMOTIDINE (20 MG) 20 MG TABLET GT SCH (09:23)
[2019-04-17] MEDS: OSELTAMIVIR PHOSPHATE 75 MG CAPSULE PO SCH ×2 (09:23→17:11)
[2019-04-17] MEDS: ASCORBIC ACID 500 MG TABLET GT SCH (09:23)
[2019-04-17] MEDS: CHLORHEXIDINE GLUCONATE 15 ML UDC MM SCH ×2 (09:23→21:50)
[2019-04-17] MEDS: MULTIVIT W/MINERALS 1 TAB TABLET GT SCH (09:23)
[2019-04-17] MEDS: FOLIC ACID 1 MG TABLET PO SCH (09:23)
[2019-04-17] MEDS: INSULIN GLARGINE, 100 UNIT/ML CARTRIDGE SQ SCH ×2 (09:25→22:09)
[2019-04-17] MEDS: HEPARIN SODIUM, PORCINE 5000 UNITS/1 ML VIAL SQ SCH ×2 (09:27→21:57)
[2019-04-17] MEDS ORDERED: POTASSIUM CL. PREMIX PERIPHER. 50 ML IV SCH (10:30)
--- NOTE | 2019-04-17 12:00 | NUR ---
MS RN NOTES VANCOMYCIN IV NOT GIVEN AT THIS TIME YET , AWAITING FOR VANCOMYCIN TROUGH RESULT. NOTIFIED PHARMACY MARYB[facility].
[2019-04-17] MEDS: VANCOMYCIN 0.75 GM in IV D5W 250 ML IV SCH (12:36)
--- NOTE | 2019-04-17 12:42 | NUR ---
MS RN NOTES RECEIVED BLOOD OSMOLALITY CRITICAL RESULT 342 RELAYED TO MICROELECTRONICS ENGINEER EDUARDO BEARD SAID TO CALL DR UMESH ERAZO TO RELAY RESULT.
--- NOTE | 2019-04-17 13:02 | NUR ---
RT NOTES RECEIVED PATIENT ON VENT WITH ORDERED SETTINGS. ALARMS ON AND AUDIBLE. VENT PLUGGED IN TO THE RED OUTLET. TRACH TUBE IN PLACE PATENT AND SECURED. BACK UP TRACH AND AMBU BAG BY THE BED SIDE. NO RESP DISTRESS NOTED. Addendum: 04/17/19 at 1303 by HILLARY GREEN RT Amended: Links added.
--- NOTE | 2019-04-17 13:07 | NUR ---
MS RN NOTES BLOOD OSMOLALITY CRITICAL RESULT [address] UMESH ERAZO WITH ORDERS TO REPEAT BLOOD OSMOLALITY TOMORROW IN AM. NOTED AND CARRIED OUT.
[2019-04-17 14:44] LABS: APPEARANCE,URINE CLEAR (CLEAR); BILIRUBIN,URINE NEGATIVE (NEGATIVE); BLOOD, URINE NEGATIVE Ery/uL (NEGATIVE); COLOR,URINE YELLOW (YELLOW); KETONES,URINE NEGATIVE (NEGATIVE); LEUKOCYTE ESTERASE ,URINE NEGATIVE (NEGATIVE); NITRITE, URINE NEGATIVE (NEGATIVE); PROTEIN,URINE 30 mg/dl (NEGATIVE); UGLUCOSE NEGATIVE (NEGATIVE); UROBILINOGEN,URINE 0.2 EU/dL (0.2)
[2019-04-17 14:58] LABS: CREATININE, URINE 39.9 MG/DL (30.0-125.0)
[2019-04-17 15:04] LABS: BACTERIA,URINE Few /HPF (None Seen); RBC,URINE 0-2 /HPF (0-2); SQUAMOUS EPITHELIAL CELL,UR Few /HPF (None Seen); WBC,URINE 0-2 /HPF (0-3)
[2019-04-17 15:05] LABS: EOSINOPHIL,URINE None Seen
[2019-04-17 16:00] VITALS: BP 169/76
[2019-04-17 16:04] LABS: OSMOLALITY,URINE 512 mOS/kg (340-1090)
[2019-04-17 16:05] LABS: URINE SODIUM, RANDOM 100 mmol/l (40-220)
[2019-04-17] MEDS: IV NS 0.9% 1,000 ML IV PRN (18:44)
--- NOTE | 2019-04-17 19:00 | NUR ---
MS RN NOTES PATIENT IN BED AWAKE, NON VERBAL, EASY TO AROUSE.HEAD OF BED ELEVATED. ON VENT WITH ORDERED SETTING. NO ACUTE DISTRESS NOTED. BREATHING UNLABORED. NO SOB NOTED. IV ACCESS PATENT AND INTACT, NO REDNESS, NO SWELLING. BILATERAL WRIST SOFT RESTRAINT CHECKED WITH GOOD CIRCULATION. NEEDS ATTENDED AND ANTICIPATED. TURN AND REPOSITION EVERY 2 HOURS AND NEEDED. SAFETY MEASURES IN PLACE. CALL LIGHT WITHIN REACH. WILL ENDORSE TO NIGHT NURSE FOR CONTINUITY OF CARE.
--- NOTE | 2019-04-17 19:40 | NUR ---
RN OPENING NOTES RECEIVED PATIENT FROM ROBERT TREJO. PATIENT IN BED, ON VENT WITH SETTINGS NOTED, NO SOB/RESPIRATORY DISTRESS NOTED. PATIENT NONVERBAL. PATIENT NOTED WITH BILATERAL SOFT WRIST RESTRAINTS, CIRCULATION AND SKIN INTACT. ON TELEMONITOR SR. NO SIGNS OF FACIAL GRIMACING INDICATING PAIN OR DISCOMFORT AT THIS TIME. IV SITE IN PLACE WITH IVF INFUSING WELL ORDERED. OH CATHETER NOTED, DRAINING WELL WITH CLEAR YELLOW URINE OUTPUT. SAFETY PRECAUTIONS IMPLEMENTED; CALL LIGHT WITHIN REACH, BED LOW, BED LOCKED, BILATERAL UPPER SIDE RAILS UP. WILL CONTINUE TO MONITOR.
[2019-04-17 20:00] VITALS: BP 162/90
[2019-04-18] VITALS (8 sets, daily range): BP systolic 145–184; BP diastolic 54–91
[2019-04-18] MEDS: ALBUTEROL FS 2.5 MG/0.5 ML VIAL.NEB NEB SCH ×4 (01:56→19:47)
[2019-04-18] MEDS: IPRATROPIUM NEB FS 0.5 MG/2.5 ML AMPUL.NEB NEB SCH ×4 (01:56→19:47)
[2019-04-18] MEDS: LORAZEPAM 1 MG TABLET GT PRN ×2 (01:56→20:42)
[2019-04-18] MEDS: hydrALAZINE HCL IV 20 MG VIAL IV PRN ×2 (04:28→09:53)
[2019-04-18] MEDS: BLOOD SUGAR DIAGNOSTIC 1 EACH STRIP IN SCH ×4 (05:50→23:55)
[2019-04-18] MEDS: INSULIN REGULAR, HUMAN 100 UNIT/ML 3 ML VIAL SQ PRN ×4 (06:04→23:57)
--- NOTE | 2019-04-18 06:42 | NUR ---
RN CLOSING NOTES PATIENT IS CURRENTLY ASLEEP IN BED, EASILY AWAKENED. ON VENT WITH SETTINGS NOTED. NO SIGNS OF RESPIRATORY DISTRESS, NO SHORTNESS OF BREATH NOTED, RESPIRATIONS EVEN AND UNLABORED. TELE READING CURRENTLY ST. WITH BILATERAL SOFT WRIST RESTRAINTS WITH INTACT CIRCULATION AND SKIN INTACT. NO SIGNS OF FACIAL GRIMACING INDICATING PAIN OR DISCOMFORT AT THIS TIME. IV SITE IN PLACE WITH IVF INFUSING WELL ORDERED. PATIENT TURNED AND REPOSITIONED EVERY 2 HOURS AND PRN. PATIENT KEPT CLEAN, DRY AND COMFORTABLE. ALL NEEDS MET ON SHIFT. ALL DUE MEDS GIVEN ORDERED WITH NO ADVERSE EFFECTS. SAFETY PRECAUTIONS IMPLEMENTED; CALL LIGHT WITHIN REACH, BED LOW, BED LOCKED, BILATERAL UPPER SIDE RAILS UP. WILL ENDORSE TO DAY SHIFT NURSE FOR CONTINUITY OF CARE.
[2019-04-18 07:21] LABS: BASOPHILS # (AUTO) 0.1 /CMM (0.0-0.2); BASOPHILS % (AUTO) 0.7 % (0.0-2.0); EOSINOPHILS % (AUTO) 2.8 % (0.0-6.0); HEMATOCRIT 30 % (33-45); HEMOGLOBIN 9.9 g/dL (11.5-14.8); LYMPHOCYTES # (AUTO) 5.6 /CMM (0.8-4.8); LYMPHOCYTES % (AUTO) 37.5 % (20.0-44.0); MEAN CORPUSCULAR HGB CONC 34 g/dl (31.0-36.0); MEAN CORPUSCULAR VOLUME 92 fL (82-100); MONOCYTES # (AUTO) 0.6 /CMM (0.1-1.30); MONOCYTES % (AUTO) 4.1 % (2.0-12.0); NEUTROPHILS # (AUTO) 8.3 /CMM (1.8-8.9); NEUTROPHILS % (AUTO) 54.9 % (43.0-81.0); PLATELET COUNT (AUTO) 495 /CMM (150-450); RED BLOOD CELL COUNT(AUTO) 3.21 MIL/uL (4.0-5.2)
--- NOTE | 2019-04-18 07:30 | NUR ---
CLERICAL ASSIGNER NOTES PT IN BED, AWAKE, ALERT TO SELF, NON VERBAL, NO SIGN OF PAIN OR DISTRESS, GT FEEDING INFUSING WELL, TOLERATING WELL, CALL LIGHT WITHIN REACH, KEPT WARM AND COMFORTABLE IN BED.
[2019-04-18 07:53] LABS: ALBUMIN 2.9 g/dL (3.4-5.0); BILIRUBIN,TOTAL 0.3 mg/dL (0.2-1.0); CALCIUM, SERUM 9.4 mg/dL (8.5-10.1); CREATININE 1.8 mg/dL (0.6-1.3); PHOSPHORUS 4.2 mg/dL (2.5-4.9); POTASSIUM 3.7 mmol/L (3.5-5.1); TOTAL PROTEIN, SERUM 8.1 g/dL (6.4-8.2)
[2019-04-18] MEDS: MEROPENEM 1 G in IV NS 0.9% 100 ML IV SCH ×2 (08:24→20:10)
[2019-04-18] MEDS: PANTOPRAZOLE 40 MG TABLET.DR PO SCH (08:32)
[2019-04-18] MEDS: FOLIC ACID 1 MG TABLET PO SCH (08:56)
[2019-04-18] MEDS: MULTIVIT W/MINERALS 1 TAB TABLET GT SCH (08:56)
[2019-04-18] MEDS: OSELTAMIVIR PHOSPHATE 75 MG CAPSULE PO SCH ×2 (08:56→16:19)
[2019-04-18] MEDS: FAMOTIDINE (20 MG) 20 MG TABLET GT SCH (08:56)
[2019-04-18] MEDS: ZINC SULFATE 220 MG CAPSULE GT SCH (08:56)
[2019-04-18] MEDS: ASCORBIC ACID 500 MG TABLET GT SCH (08:56)
[2019-04-18] MEDS: CHLORHEXIDINE GLUCONATE 15 ML UDC MM SCH ×2 (08:56→20:10)
[2019-04-18] MEDS: INSULIN GLARGINE, 100 UNIT/ML CARTRIDGE SQ SCH ×2 (08:59→22:04)
[2019-04-18] MEDS: HEPARIN SODIUM, PORCINE 5000 UNITS/1 ML VIAL SQ SCH ×2 (09:00→20:13)
--- NOTE | 2019-04-18 12:39 | NUR ---
DIETARY TECH NOTES PT IN BED, AWAKE, NON VERBAL, NO SIGN OF PAIN OR DISTRESS, SEEN BY DR. BEARD, DUE MEDS GIVEN ORDERED, TOLERATING GT FEEDING WELL, REPOSITIONED EVERY 2 HOURS, KEPT CLEAN AND DRY.
[2019-04-18] MEDS: NEPRO 1,000 ML BOTTLE GT PRN (14:36)
--- NOTE | 2019-04-18 18:16 | NUR ---
HOGSHEAD SALVAGE NOTES PT IN BED, AWAKE, ALERT BUT NON VERBAL, ABLE TO NOD OR SHAKE HER HEAD, DENIES PAIN, NOT IN DISTRESS, GT FEEDING INFUSING WELL, TOLERATING WELL, F/C DRAINING WELL WITH CLEAR, YELLOW URINE, VISITED BY SON ELENA, PLAN OF CARE DISCUSSED WITH SON, VERBALIZED UNDERSTANDING, TURNED AND REPOSITIONED Q2 HOURS, PM CARE PROVIDED, KEPT WARM AND COMFORTABLE IN BED.
--- NOTE | 2019-04-18 19:05 | NUR ---
TELE/RN OPENING NOTES: RECEIVED PATIENT IN BED, ON VENT WITH SETTINGS NOTED, NO SOB/RESPIRATORY DISTRESS NOTED. PATIENT IS NONVERBAL BUT OPENS EYES, AND NODS WHEN TALKED TO. PATIENT NOTED WITH BILATERAL SOFT WRIST RESTRAINTS, CIRCULATION AND SKIN INTACT. ON TELEMONITOR SR. GTUBE FEEDING INFUSING WELL, NO SIGNS OF FACIAL GRIMACING INDICATING PAIN OR DISCOMFORT AT THIS TIME. IV SITE IN PLACE WITH IVF INFUSING WELL ORDERED. OH CATHETER NOTED, DRAINING WELL WITH CLEAR YELLOW URINE OUTPUT. SAFETY PRECAUTIONS IMPLEMENTED; CALL LIGHT WITHIN REACH, BED LOW, BED LOCKED, BILATERAL UPPER SIDE RAILS UP. WILL CONTINUE MONITORING PT ACCORDINGLY.
--- NOTE | 2019-04-18 20:42 | NUR ---
TELE/RN NOTES: PATIENT IS AGITATED. ADMINISTERED 1MG VIA GTUBE. TOLERATED WELL. WILL REASSESS AND CONTINUE MONITORING PATIENT ACCORDINGLY.
[2019-04-19] VITALS (8 sets, daily range): BP systolic 118–160; BP diastolic 69–97
[2019-04-19] MEDS: IPRATROPIUM NEB FS 0.5 MG/2.5 ML AMPUL.NEB NEB SCH ×4 (00:29→20:22)
[2019-04-19] MEDS: ALBUTEROL FS 2.5 MG/0.5 ML VIAL.NEB NEB SCH ×4 (00:30→20:22)
[2019-04-19] MEDS: IV NS 0.9% 1,000 ML IV PRN (02:53)
[2019-04-19] MEDS: hydrALAZINE HCL IV 20 MG VIAL IV PRN (04:02)
--- NOTE | 2019-04-19 04:02 | NUR ---
TELE/RN NOTES: BP WAS 189/84. HR:124. ADMINISTERED IV HYDRALAZINE 10MG PRN ORDER. WILL REASSESS AND MONITOR PT ACCORDINGLY.
--- NOTE | 2019-04-19 05:00 | NUR ---
TELE/RN NOTES: BP IMPROVING. CURRENTLY 118/69. HR ON 120S. PATIENT IS STABLE. HYDRALAZINE IV WAS EFFECTIVE. WILL CONTINUE MONITORING PT. ACCORDINGLY.
[2019-04-19] MEDS: BLOOD SUGAR DIAGNOSTIC 1 EACH STRIP IN SCH ×3 (05:36→17:26)
[2019-04-19] MEDS: INSULIN REGULAR, HUMAN 100 UNIT/ML 3 ML VIAL SQ PRN ×3 (05:39→17:27)
[2019-04-19 06:02] LABS: BASOPHILS # (AUTO) 0.1 /CMM (0.0-0.2); BASOPHILS % (AUTO) 0.6 % (0.0-2.0); EOSINOPHILS % (AUTO) 0.3 % (0.0-6.0); HEMATOCRIT 30 % (33-45); HEMOGLOBIN 9.8 g/dL (11.5-14.8); LYMPHOCYTES # (AUTO) 6.5 /CMM (0.8-4.8); MEAN CORPUSCULAR HGB CONC 33 g/dl (31.0-36.0); MEAN CORPUSCULAR VOLUME 93 fL (82-100); MONOCYTES # (AUTO) 0.9 /CMM (0.1-1.30); MONOCYTES % (AUTO) 5.4 % (2.0-12.0); NEUTROPHILS # (AUTO) 9.6 /CMM (1.8-8.9); NEUTROPHILS % (AUTO) 55.7 % (43.0-81.0); PLATELET COUNT (AUTO) 461 /CMM (150-450); RED BLOOD CELL COUNT(AUTO) 3.19 MIL/uL (4.0-5.2); WHITE BLOOD COUNT (AUTO) 17.2 K/uL (4.3-11.0)
--- NOTE | 2019-04-19 06:28 | NUR ---
TELE/RN CLOSING NOTES: PATIENT REMAINS STABLE IN BED, ON VENT WITH SETTINGS NOTED, NO SOB/RESPIRATORY DISTRESS NOTED. PATIENT IS NONVERBAL BUT OPENS EYES, AND NODS WHEN TALKED TO. PATIENT NOTED WITH BILATERAL SOFT WRIST RESTRAINTS, CIRCULATION AND SKIN INTACT. TURNED AND REPOSITIONED. ON TELEMONITOR ST WITH HR ON THE 120S. G-TUBE FEEDING INFUSING WELL AT 45CC/HR, NO SIGNS OF FACIAL GRIMACING INDICATING PAIN OR DISCOMFORT AT THIS TIME. IV SITE IN PLACE WITH IVF INFUSING WELL ORDERED 50ML/HR. OH CATHETER NOTED, DRAINING WELL WITH CLEAR YELLOW URINE OUTPUT. ALL DUE MEDICATIONS GIVEN ORDERED. TOLERATED WELL. KEPT PATIENT WARM AND DRY AT ALL TIMES. ALL NEEDS ATTENDED AND MET. SAFETY PRECAUTIONS IMPLEMENTED; CALL LIGHT WITHIN REACH, BED LOW, BED LOCKED, BILATERAL UPPER SIDE RAILS UP. WILL ENDORSE TO DAY SHIFT NURSE FOR NEIL.
[2019-04-19 06:41] LABS: CALCIUM, SERUM 9.3 mg/dL (8.5-10.1); CREATININE 1.9 mg/dL (0.6-1.3); MAGNESIUM 2.1 mg/dL (1.8-2.4); PHOSPHORUS 3.4 mg/dL (2.5-4.9); POTASSIUM 3.6 mmol/L (3.5-5.1)
--- NOTE | 2019-04-19 07:52 | NUR ---
MEDICAL CASE MANAGER NOTES PATIENT RECEIVED RESTING INSIDE ROOM. AWAKE, EYES OPEN, NON-VERBAL. TRACH PRESENT, TOLERATING VENT SETTINGS. ONGOING GTF AND PATIENT TOLERATING WELL. OH CATH IN PLACE WITH YELLOW URINE OUTPUT NOTED IN COLLECTING BAG. SAFETY PRECAUTIONS IN PLACE. BILATERAL SOFT WRIST RESTRAINTS IN PLACE, SKIN CHECKS DONE. FIELD MARKETING LEAD IN PLACE, ST 124. MD AWARE. WILL CONTINUE TO MONITOR. BED LOCKED AND IN LOW POSITION. SIDE RAILS UP X3. CALL LIGHT WITHIN EASY REACH
[2019-04-19 08:06] LABS: COMPLEMENT C3, SERUM 117 mg/dL (82-167); COMPLEMENT C4, SERUM 32 mg/dL (14-44); PTH, INTACT 41 pg/mL (15-65)
[2019-04-19] MEDS ORDERED: IV D5W 1,000 ML IV ONE (08:30)
[2019-04-19] MEDS: MEROPENEM 1 G in IV NS 0.9% 100 ML IV SCH ×2 (09:24→20:40)
[2019-04-19] MEDS: MULTIVIT W/MINERALS 1 TAB TABLET GT SCH (09:25)
[2019-04-19] MEDS: ASCORBIC ACID 500 MG TABLET GT SCH (09:25)
[2019-04-19] MEDS: CHLORHEXIDINE GLUCONATE 15 ML UDC MM SCH ×2 (09:25→21:13)
[2019-04-19] MEDS: PANTOPRAZOLE 40 MG TABLET.DR PO SCH (09:25)
[2019-04-19] MEDS: OSELTAMIVIR PHOSPHATE 75 MG CAPSULE PO SCH ×2 (09:26→17:11)
[2019-04-19] MEDS: ZINC SULFATE 220 MG CAPSULE GT SCH (09:26)
[2019-04-19] MEDS: FOLIC ACID 1 MG TABLET PO SCH (09:26)
[2019-04-19] MEDS: FAMOTIDINE (20 MG) 20 MG TABLET GT SCH (09:26)
[2019-04-19] MEDS: ACETAMINOPHEN 325 MG TABLET PO PRN ×2 (09:26→17:11)
[2019-04-19] MEDS: HEPARIN SODIUM, PORCINE 5000 UNITS/1 ML VIAL SQ SCH ×2 (09:53→21:16)
[2019-04-19] MEDS: INSULIN GLARGINE, 100 UNIT/ML CARTRIDGE SQ SCH ×2 (09:53→21:49)
[2019-04-19] MEDS: NEPRO 1,000 ML BOTTLE GT PRN ×2 (16:18→21:57)
[2019-04-19] MEDS ORDERED: VANCOMYCIN 1 GM in IV D5W 250ml IV ONE (18:00)
[2019-04-19] MEDS ORDERED: FEE PK DOSING 1 MIN EA MC ONE (18:02)
--- NOTE | 2019-04-19 18:51 | NUR ---
CARE MANAGEMENT SPECIALIST NOTES PATIENT RESTING INSIDE ROOM. AWAKE, NON-VERBAL. NO CHANGES IN LOC NOTED. TOLERATING CURRENT VENT SETTINGS. MAINTAINED ASPIRATION PRECAUTIONS. FORESTRY HUNTER IN PLACE, ST 102. PATIENT KEPT CLEAN, DRY AND COMFORTABLE. WILL ENDORSE TO INCOMING SHIFT FOR NEIL. BED LOCKED AND IN LOW POSITION. SIDE RAILS UP X 3. CALL LIGHT WITHIN EASY REACH.
--- NOTE | 2019-04-19 19:00 | NUR ---
Recieved alert to self. Peg tube patent eye contact present but nonverbal noted when wrist restraints off she will touch her face and touch tubing of the vent. Iv Site red removed and restarted with g20 left f/a
[2019-04-19 20:45] LABS: APPEARANCE,URINE CLEAR (CLEAR); BILIRUBIN,URINE NEGATIVE (NEGATIVE); BLOOD, URINE TRACE Ery/uL (NEGATIVE); COLOR,URINE YELLOW (YELLOW); KETONES,URINE NEGATIVE (NEGATIVE); LEUKOCYTE ESTERASE ,URINE NEGATIVE (NEGATIVE); NITRITE, URINE NEGATIVE (NEGATIVE); PROTEIN,URINE 30 mg/dl (NEGATIVE); UGLUCOSE NEGATIVE (NEGATIVE); UROBILINOGEN,URINE 0.2 EU/dL (0.2)
[2019-04-19 20:52] LABS: BACTERIA,URINE Few /HPF (None Seen); RBC,URINE 0-2 /HPF (0-2); SQUAMOUS EPITHELIAL CELL,UR Few /HPF (None Seen); YEAST,URINE Few /HPF (None Seen)
[2019-04-20] MEDS: BLOOD SUGAR DIAGNOSTIC 1 EACH STRIP IN SCH ×4 (00:10→18:22)
[2019-04-20] MEDS: INSULIN REGULAR, HUMAN 100 UNIT/ML 3 ML VIAL SQ PRN ×4 (00:15→18:27)
[2019-04-20] MEDS: ALBUTEROL FS 2.5 MG/0.5 ML VIAL.NEB NEB SCH ×4 (00:54→20:24)
[2019-04-20] MEDS: IPRATROPIUM NEB FS 0.5 MG/2.5 ML AMPUL.NEB NEB SCH ×4 (00:54→20:24)
[2019-04-20 01:10] VITALS: BP 147/84
--- NOTE | 2019-04-20 06:03 | NUR ---
Ending notes: Alert to self, she will follow the nurse with her eye . She is nonverbal. On the shoe dresser reading is SR HR 94BPM. Blood sugar this AM 297 coverage given. Stopped the D5W from infusing, noted the DC order late. aspiration precautions d/t PEG feeding. Mcelroy output 400ml this 12 hours
[2019-04-20 06:56] LABS: BASOPHILS # (AUTO) 0.1 /CMM (0.0-0.2); BASOPHILS % (AUTO) 0.5 % (0.0-2.0); EOSINOPHILS % (AUTO) 1.5 % (0.0-6.0); HEMATOCRIT 30 % (33-45); HEMOGLOBIN 9.7 g/dL (11.5-14.8); LYMPHOCYTES # (AUTO) 7.1 /CMM (0.8-4.8); MEAN CORPUSCULAR HGB CONC 33 g/dl (31.0-36.0); MEAN CORPUSCULAR VOLUME 94 fL (82-100); MONOCYTES # (AUTO) 0.6 /CMM (0.1-1.30); MONOCYTES % (AUTO) 3.8 % (2.0-12.0); NEUTROPHILS # (AUTO) 7.8 /CMM (1.8-8.9); NEUTROPHILS % (AUTO) 49.2 % (43.0-81.0); PLATELET COUNT (AUTO) 385 /CMM (150-450); RED BLOOD CELL COUNT(AUTO) 3.17 MIL/uL (4.0-5.2); WHITE BLOOD COUNT (AUTO) 15.8 K/uL (4.3-11.0)
[2019-04-20 07:14] LABS: CALCIUM, SERUM 9.1 mg/dL (8.5-10.1); MAGNESIUM 2.3 mg/dL (1.8-2.4); PHOSPHORUS 3.7 mg/dL (2.5-4.9); POTASSIUM 3.9 mmol/L (3.5-5.1)
[2019-04-20 08:00] VITALS: BP 155/91
--- NOTE | 2019-04-20 08:00 | NUR ---
MANAGER VEHICLE OPENING NOTES Received Patient awake and resting in bed. A/O x 1, non-verbal. VS stable with no acute distress. Breathing even and unlabored on trachea and vent with no respiratory distress. No signs and symptoms of pain at this time. Telemonitor in place and patent reading Sinus Tach with HR-128. Mcelroy Cath in place and patent with clear, yellow output noted. G-Tube in place and patent with 0 residual noted and Nephro infusing at 45ml/hr. Patient tolerating well. 20g PIV on LFA clean, intact, patent and flushing well. Safety precautions in place. Bed locked and set to lowest position with side rails x 3 up. Bilateral soft wrist restraints in place. Bilateral hands, warm with skin intact. Will continue to monitor circulation. All needs rendered at this time. Call light within reach. Will continue to monitor.
[2019-04-20] MEDS: MEROPENEM 1 G in IV NS 0.9% 100 ML IV SCH ×2 (09:35→20:20)
[2019-04-20] MEDS: PANTOPRAZOLE 40 MG TABLET.DR PO SCH (09:35)
[2019-04-20] MEDS: FAMOTIDINE (20 MG) 20 MG TABLET GT SCH (09:35)
[2019-04-20] MEDS: OSELTAMIVIR PHOSPHATE 75 MG CAPSULE PO SCH ×2 (09:36→18:22)
[2019-04-20] MEDS: ASCORBIC ACID 500 MG TABLET GT SCH (09:36)
[2019-04-20] MEDS: ZINC SULFATE 220 MG CAPSULE GT SCH (09:36)
[2019-04-20] MEDS: CHLORHEXIDINE GLUCONATE 15 ML UDC MM SCH ×2 (09:36→22:14)
[2019-04-20] MEDS: MULTIVIT W/MINERALS 1 TAB TABLET GT SCH (09:36)
[2019-04-20] MEDS: FOLIC ACID 1 MG TABLET PO SCH (09:36)
[2019-04-20] MEDS: HEPARIN SODIUM, PORCINE 5000 UNITS/1 ML VIAL SQ SCH (09:38)
[2019-04-20] MEDS: INSULIN GLARGINE, 100 UNIT/ML CARTRIDGE SQ SCH ×2 (09:40→22:12)
--- NOTE | 2019-04-20 10:12 | NUR ---
RT NOTE RECEIVED PT MECHANICALLY VENTILATED VIA CUFFED TRACHEOSTOMY TUBE. CUFF INFLATED. TRACH TUBE MIDLINE AND SECURE. VENTILATOR SETTINGS PRESCRIBED. ALARMS SET PER PROTOCOL AND AUDIBLE. VENT PLUGGED IN TO RED OUTLET. AMBU BAG AT BED SIDE. NO DISTRESS NOTED. Addendum: 04/20/19 at 1014 by CLAY FIGUEROA RT Amended: Links added.
[2019-04-20 12:13] LABS: *SPE A/G RATIO 0.7 (0.7-1.7); *SPE ALBUMIN 3.1 g/dL (2.9-4.4); *SPE ALPHA-1-GLOBULIN 0.3 g/dL (0.0-0.4); *SPE ALPHA-2-GLOBULIN 1.1 g/dL (0.4-1.0); *SPE BETA GLOBULIN 1.1 g/dL (0.7-1.3); *SPE GLOBULIN, TOTAL 4.4 g/dL (2.2-3.9); *SPE M-SPIKE Not Observed g/dL (Not Observed)
[2019-04-20] MEDS: FLUCONAZOLE IN NS,PREMIX 100 MG in PREMIX 1 EA IV SCH ×2 (13:49)
[2019-04-20 16:00] VITALS: BP 146/75
[2019-04-20] MEDS ORDERED: VANCOMYCIN HCL 0.75 GM in IV D5W 250 ML IV SCH (18:00)
--- NOTE | 2019-04-20 18:49 | NUR ---
HOME HOUSEKEEPER CLOSING NOTES Patient awake and resting in bed. A/O x 1, non-verbal. VS stable with no acute distress. Breathing even and unlabored on trachea and vent with no respiratory distress. No signs and symptoms of pain at this time. Telemonitor in place and patent reading Sinus Tach with HR-102. Mcelroy Cath in place and patent with clear, yellow output noted. G-Tube in place and patent with 0 residual noted. Patient tolerating well. 20g PIV on LFA clean, intact, patent and flushing well. Safety precautions in place. Bed locked and set to lowest position with side rails x 3 up. Bilateral soft wrist restraints in place. Bilateral hands, warm with skin intact. All needs rendered at this time. Call light within reach. Will endorse plan of care to oncoming shift.
[2019-04-20 20:00] VITALS: BP 150/75
--- NOTE | 2019-04-20 20:43 | NUR ---
MS/RN AT INITIAL ROUNDING AT 1930, PATIENT WAS IN BED AWAKE, FLAT AFFECT, NON VERBAL, [facility], NO S/S OF PAIN, NO SIGNS OF DISTRESS NOTE, HOB ELEVATED, CALL LIGHT IN REACH. WILL MONITOR.
[2019-04-20] MEDS: NEPRO 1,000 ML BOTTLE GT PRN (22:12)
[2019-04-21] VITALS: BP 152/72
[2019-04-21] MEDS: BLOOD SUGAR DIAGNOSTIC 1 EACH STRIP IN SCH ×4 (00:07→18:12)
[2019-04-21] MEDS: IPRATROPIUM NEB FS 0.5 MG/2.5 ML AMPUL.NEB NEB SCH ×4 (01:54→20:14)
[2019-04-21] MEDS: ALBUTEROL FS 2.5 MG/0.5 ML VIAL.NEB NEB SCH ×4 (01:56→20:14)
[2019-04-21 04:00] VITALS: BP 149/81
--- NOTE | 2019-04-21 06:09 | NUR ---
MS/RN PATIENT IS AWAKE AT THIS TIME, APPEAR COMFORTABLE, NO SIGNS OF DISTRESS NOTED, HOB ELEVATE, GT FEEDING INFUSING, CALL LIGHT IN REACH. ALL NEEDS ATTENDE AT THIS TIME, WILL CONTINUE TO MONITOR.
[2019-04-21 08:00] VITALS: BP 165/94
--- NOTE | 2019-04-21 08:00 | NUR ---
THERMIT WELDING MACHINE OPERATOR OPENING NOTES Received Patient awake and resting in bed. A/O x 1, non-verbal. VS stable with no acute distress. Breathing even and unlabored on trachea and vent with no respiratory distress. No signs and symptoms of pain at this time. Telemonitor in place and patent reading Sinus Tach with HR-103. Mcelroy Cath in place and patent with clear, yellow output noted. G-Tube in place and patent with 0 residual noted and Nephro infusing at 45ml/hr. Patient tolerating well. 20g PIV on LFA clean, intact, patent and flushing well. Safety precautions in place. Bed locked and set to lowest position with side rails x 3 up. Bilateral soft wrist restraints in place with clean, warm and intact skin. Will continue to monitor circulation. All needs rendered at this time. Call light within reach. Will continue to monitor.
[2019-04-21 08:26] LABS: BASOPHILS # (AUTO) 0.1 /CMM (0.0-0.2); BASOPHILS % (AUTO) 0.7 % (0.0-2.0); EOSINOPHILS % (AUTO) 2.5 % (0.0-6.0); HEMATOCRIT 29 % (33-45); HEMOGLOBIN 9.6 g/dL (11.5-14.8); LYMPHOCYTES # (AUTO) 4.7 /CMM (0.8-4.8); LYMPHOCYTES % (AUTO) 33.2 % (20.0-44.0); MEAN CORPUSCULAR HGB CONC 33 g/dl (31.0-36.0); MEAN CORPUSCULAR VOLUME 93 fL (82-100); MONOCYTES # (AUTO) 0.5 /CMM (0.1-1.30); MONOCYTES % (AUTO) 3.5 % (2.0-12.0); NEUTROPHILS # (AUTO) 8.5 /CMM (1.8-8.9); NEUTROPHILS % (AUTO) 60.1 % (43.0-81.0); PLATELET COUNT (AUTO) 329 /CMM (150-450); WHITE BLOOD COUNT (AUTO) 14.1 K/uL (4.3-11.0)
[2019-04-21 08:34] LABS: CALCIUM, SERUM 9.3 mg/dL (8.5-10.1); CREATININE 1.8 mg/dL (0.6-1.3); MAGNESIUM 2.1 mg/dL (1.8-2.4); PHOSPHORUS 3.5 mg/dL (2.5-4.9); POTASSIUM 3.8 mmol/L (3.5-5.1)
[2019-04-21] MEDS: FAMOTIDINE (20 MG) 20 MG TABLET GT SCH (09:35)
[2019-04-21] MEDS: PANTOPRAZOLE 40 MG TABLET.DR PO SCH (09:35)
[2019-04-21] MEDS: MEROPENEM 1 G in IV NS 0.9% 100 ML IV SCH ×2 (09:35→20:46)
[2019-04-21] MEDS: ASCORBIC ACID 500 MG TABLET GT SCH (09:36)
[2019-04-21] MEDS: CHLORHEXIDINE GLUCONATE 15 ML UDC MM SCH ×2 (09:36→20:57)
[2019-04-21] MEDS: FOLIC ACID 1 MG TABLET PO SCH (09:36)
[2019-04-21] MEDS: ZINC SULFATE 220 MG CAPSULE GT SCH (09:36)
[2019-04-21] MEDS: OSELTAMIVIR PHOSPHATE 75 MG CAPSULE PO SCH (09:36)
[2019-04-21] MEDS: MULTIVIT W/MINERALS 1 TAB TABLET GT SCH (09:36)
[2019-04-21] MEDS: INSULIN GLARGINE, 100 UNIT/ML CARTRIDGE SQ SCH ×2 (09:49→22:00)
[2019-04-21] MEDS: FLUCONAZOLE IN NS,PREMIX 100 MG in PREMIX 1 EA IV SCH ×2 (11:48)
[2019-04-21] MEDS: INSULIN REGULAR, HUMAN 100 UNIT/ML 3 ML VIAL SQ PRN (11:55)
[2019-04-21 16:00] VITALS: BP 142/79
[2019-04-21] MEDS ORDERED: MERO500V21 IV (16:00)
--- NOTE | 2019-04-21 19:00 | NUR ---
ACCOUNTING MACHINE OPERATOR CLOSING NOTES Patient awake and resting in bed. A/O x 1, non-verbal. VS stable with no acute distress. Breathing even and unlabored on trachea and vent with no respiratory distress. No signs and symptoms of pain at this time. Telemonitor in place and patent reading Sinus Rhythm with HR-90. Mcelroy Cath in place and patent with clear, yellow output noted. G-Tube in place and patent with 0 residual noted. 20g PIV on LFA clean, intact, patent and flushing well. Skin assessment pictures taken and placed in chart. Safety precautions in place. Bed locked and set to lowest position with side rails x 3 up. Bilateral soft wrist restraints in place with clean, warm and intact skin. Medication reconciliation and discharge orders reviewed and explained to Patient. Patient unable to comprehend. All belongings with Patient. All needs rendered at this time. Call light within reach. Will discharge plan to oncoming shift.
--- NOTE | 2019-04-21 19:51 | NUR ---
MS/RN RECEIVE PATIENT AWAKE, ALERT, NON VERBAL, COMFORTABLE, NO SIGNS OF DISTRESS NOTE, MECHANICAL VENTILATOR WORKING WELL, G TUBE FEEDING, HOB ELEVATED. CALL LIGHT IN REACH. WAITING FOR AMBULANCE FOR PICKUP TO SNF. WILL MONITOR.
[2019-04-21 20:00] VITALS: BP 163/83
--- NOTE | 2019-04-21 21:26 | NUR ---
MS/TELE/RN AMBULANCE NOT HERE YET, CHARGE NURSE CALLED [facility] TO F/U, PER CHARGE NURSE AMBULANCE WILL BE COMING IN 30 MINUTES. WILL CONTINUE TO MONITOR PATIENT.
--- NOTE | 2019-04-21 23:13 | NUR ---
MS/TELE/RN LANTUS WAS NOT GIVEN DUE TO BLOOD SUGAR 71. PATIENT IS ON GT FEEDING.
--- NOTE | 2019-04-22 00:27 | NUR ---
MS/TELE/RN AMBULANCE ARRIVED AT 2214, PAPER WORKS GIVEN, REPORT GIVEN, GT FLUSHED, IV HEPLOCKED AND FLUSHED AND WILL GO WITH THE PATIENT, F/C WILL EMPTIED 300 MLS YELLOW CLEAR URINE AND WILL GO WITH THE PATIENT. AMBULANCE LEFT THE FLOOR AROUND 2229 IN STABLE CONDITION.
== END 2019-04-21 22:30 | DRG 130 ==
LOC: ER 15:58 → TELE 20:04
PROVIDERS: ADMIT Registered Nurse; ATTEND Nurse Practitioner Acute Care
PROC: 5A1955Z Respiratory Ventilation, Greater than 96 Consecutive Hours (ICD-10-PCS; principal; 2019-04-14)
DX: J15.9 Unspecified bacterial pneumonia (principal); N17.0 Acute kidney failure with tubular necrosis; G92 Toxic encephalopathy; L89.156 Pressure-induced deep tissue damage of sacral region; R53.2 Functional quadriplegia; R13.10 Dysphagia, unspecified; J96.10 Chronic respiratory failure, unspecified whether with hypoxia or hypercapnia; E11.22 Type 2 diabetes mellitus with diabetic chronic kidney disease; L89.326 Pressure-induced deep tissue damage of left buttock; L89.316 Pressure-induced deep tissue damage of right buttock; S22.31XA Fracture of one rib, right side, initial encounter for closed fracture; E86.0 Dehydration; E87.1 Hypo-osmolality and hyponatremia; I13.10 Hypertensive heart and chronic kidney disease without heart failure, with stage 1 through stage 4 chronic kidney disease, or unspecified chronic kidney disease; N18.9 Chronic kidney disease, unspecified; J98.11 Atelectasis; Z98.890 Other specified postprocedural states; Z79.4 Long term (current) use of insulin; Z79.01 Long term (current) use of anticoagulants; Z79.899 Other long term (current) drug therapy; N13.9 Obstructive and reflux uropathy, unspecified; Z99.11 Dependence on respirator [ventilator] status; Z93.0 Tracheostomy status; Z93.1 Gastrostomy status; D64.9 Anemia, unspecified; E11.65 Type 2 diabetes mellitus with hyperglycemia; F41.9 Anxiety disorder, unspecified; N39.0 Urinary tract infection, site not specified; L98.419 Non-pressure chronic ulcer of buttock with unspecified severity; L98.429 Non-pressure chronic ulcer of back with unspecified severity; M24.561 Contracture, right knee; E86.1 Hypovolemia; X58.XXXA Exposure to other specified factors, initial encounter; Y92.9 Unspecified place or not applicable; E87.0 Hyperosmolality and hypernatremia
CPT/HCPCS: 31720; 36415; 71045-TC; 76770-TC; 80048-TC; 80053-TC; 80061-TC; 80076-TC; 80202-TC; 81000-TC; 82550-TC; 82570-TC; 82962-TC; 83605-TC; 83735-TC; 83935-TC; 83970; 84100-TC; 84146; 84155; 84155-TC; 84165; 84300-TC; 84443-TC; 85025-TC; 85730-TC; 86803; 87040-TC; 87070-TC; 87081-TC; 87086-TC; 87536; 93307-TC; 94003-TC; 94640-TC; 94760-TC; 94762-TC; A4216; A6403; G0378; J0360; J1450; J1644; J1815; J1956; J2185; J2405; J2543; J2920; J3370; J3480; J7030; J7060; J7070

== ENCOUNTER 2019-11-24 12:42 | Emergency (ER) | payer MEDICAID ==
[~2019-11-24] VITALS: Ht 157.5 cm; Wt 56.7 kg
[~2019-11-24 12:42] MED LIST changes: -AMLO5TAB9 GT; +LORA-259 GT; +MERO500V21 IV; -NUT.237L30 GT; +NUT.237L67; +NUTR1PAC14 PO
[2019-11-24] MEDS ORDERED: LIDOCAINE 0.5% HCL 50 ML VIAL IJ ONE (13:00)
--- NOTE | 2019-11-24 13:05 | NUR ---
BIBPA, C/O HEAD LACERATION S/P FALL. PT NON VERBAL, EYES OPEN. NO ACUTE DISTRESS NOTED. PT SEEN & EVAL'D BY DR. LOMAX. WILL CONT TO MONITOR.
[2019-11-24] MEDS ORDERED: LIDOCAINE 0.5%-EPI 1:200,000 50 ML VIAL ONE (13:10)
--- NOTE | 2019-11-24 15:31 | NUR ---
[facility]. SPOKE TO [facility], WITH [facility]. ETA 5 MIN.
--- NOTE | 2019-11-24 16:01 | NUR ---
Patient discharged to SNF in stable condition. Written and verbal after care instructions given EMT. PT EN ROUTE TO SNF VIA BLS.
[2019-11-24] MEDS ORDERED: TDAP [DIPH/PERTUSSIS/TET] 0.5 ML VIAL IM ONE ×2 (16:07→16:30)
--- NOTE | 2019-11-24 16:38 | NUR ---
REPORT GIVEN TO ARUNA @ [facility] FOR CONT OF CARE.
[2019-11-24 16:39] VITALS: BP 125/80
== END 2019-11-24 16:39 ==
LOC: ER 12:44
DX: S01.01XA Laceration without foreign body of scalp, initial encounter (principal); R53.1 Weakness; R51 Headache; I12.9 Hypertensive chronic kidney disease with stage 1 through stage 4 chronic kidney disease, or unspecified chronic kidney disease; E11.22 Type 2 diabetes mellitus with diabetic chronic kidney disease; N18.9 Chronic kidney disease, unspecified; D63.1 Anemia in chronic kidney disease; Z98.890 Other specified postprocedural states; Z93.1 Gastrostomy status; Z79.899 Other long term (current) drug therapy; Z79.4 Long term (current) use of insulin; W18.39XA Other fall on same level, initial encounter; Y93.89 Activity, other specified; Y92.89 Other specified places as the place of occurrence of the external cause; Y99.8 Other external cause status
CPT/HCPCS: 12002; 70450; 90471; 90715; 99284; A6403; J3490

== ENCOUNTER 2020-11-09 16:09 | Inpatient (IN) | payer MEDICAID ==
[~2020-11-09] VITALS: Ht 165.1 cm; Wt 58.6 kg
[2020-11-09] VITALS (17 sets, daily range): BP systolic 72–125; BP diastolic 47–79
[~2020-11-09 16:09] MED LIST changes: -FOLI0.8T GT; +FOLI0.8T3 GT
--- NOTE | 2020-11-09 16:09 | NUR ---
PT BIB [facility], SENT BY PMD FOR ELEVATED BUN AND CREATININE LEVEL. PT IS AAOX0, NOT IN RESPIRATORY DISTRESS, HOOKED TO TOOL LAPPER HAND, KEPT RESTED AND COMFORTABLE. WILL CONTINUE TO MONITOR.
--- NOTE | 2020-11-09 16:41 | NUR ---
SEEN AND EXAMINED BY .
--- NOTE | 2020-11-09 16:45 | NUR ---
IV LINE ESTABLISHED BLOOD DRAWN AND SENT TO LAB.
[2020-11-09] MEDS ORDERED: ACETAMINOPHEN 650 MG/SUPP.RECT RC ONE ×2 (16:48→17:00)
--- NOTE | 2020-11-09 16:50 | NUR ---
BRIM STITCHER AT BEDSIDE FOR XRAY.
[2020-11-09] MEDS ORDERED: IV NS 0.9% 1,000 ML BAG IV ONE ×3 (17:00→18:00)
[2020-11-09 17:03] LABS: BASOPHILS # (AUTO) 0.4 K/uL (0.0-0.2); BASOPHILS % (AUTO) 1.6 % (0.0-2.0); EOSINOPHILS % (AUTO) 0.4 % (0.0-6.0); HEMATOCRIT 29 % (33-45); HEMOGLOBIN 9.3 g/dL (11.5-14.8); LYMPHOCYTES # (AUTO) 1.4 K/uL (0.8-4.8); LYMPHOCYTES % (AUTO) 5.7 % (20.0-44.0); MEAN CORPUSCULAR HGB CONC 32 g/dl (31.0-36.0); MEAN CORPUSCULAR VOLUME 98 fL (82-100); MONOCYTES # (AUTO) 0.6 K/uL (0.1-1.30); MONOCYTES % (AUTO) 2.4 % (2.0-12.0); NEUTROPHILS # (AUTO) 22.6 K/uL (1.8-8.9); NEUTROPHILS % (AUTO) 89.9 % (43.0-81.0); PLATELET COUNT (AUTO) 345 K/uL (150-450); RED BLOOD CELL COUNT(AUTO) 2.97 MIL/uL (4.0-5.2); WHITE BLOOD COUNT (AUTO) 25.1 K/uL (4.3-11.0)
[2020-11-09 17:42] LABS: ALBUMIN 2.5 g/dL (3.4-5.0); BILIRUBIN,DIRECT 0.2 mg/dL (0.0-0.2); BILIRUBIN,TOTAL 0.4 mg/dL (0.2-1.0); CALCIUM, SERUM 11.2 mg/dL (8.5-10.1); CREATININE 4.5 mg/dL (0.6-1.3); POTASSIUM 4.6 mmol/L (3.5-5.1); TOTAL PROTEIN, SERUM 7.9 g/dL (6.4-8.2)
[2020-11-09] MEDS ORDERED: PIPERACILLIN /TAZOBACTAM 3.375 G in IV D5W 50 ML IV ONE (18:00)
[2020-11-09] MEDS ORDERED: ALBUMIN 25% 12.5 GM/50 ML BOTTLE IV ONE (18:00)
[2020-11-09] MEDS ORDERED: INSULIN REGULAR, HUMAN 100 UNIT/ML 10 ML VIAL IV ONE (18:00)
--- NOTE | 2020-11-09 18:00 | NUR ---
CALLED NURSING SUP FOR PICC LINE
[2020-11-09] MEDS ORDERED: ALBUMIN 25% 50 ML IV ONE (18:01)
[2020-11-09] MEDS ORDERED: INSULIN REGULAR, HUMAN 100 UNIT/ML 10 ML VIAL ONE (18:01)
--- NOTE | 2020-11-09 18:07 | NUR ---
CALLED [facility], PAGED DR OH
[2020-11-09 18:34] LABS: BILIRUBIN,URINE Negative (NEGATIVE); COLOR,URINE YELLOW (YELLOW); LEUKOCYTE ESTERASE ,URINE Large (NEGATIVE); NITRITE, URINE Negative (NEGATIVE); PH,URINE 5.5 (5.0-8.0); PROTEIN,URINE 100 mg/dl (NEGATIVE); UGLUCOSE Negative (NEGATIVE); UROBILINOGEN,URINE 0.2 EU/dL (0.2)
[2020-11-09] MEDS ORDERED: CLON0.5T4 PO (18:41)
[2020-11-09] MEDS ORDERED: OMEG1600 PO (18:41)
[2020-11-09] MEDS ORDERED: ASCO500C17 GT (18:41)
[2020-11-09] MEDS ORDERED: AMIN887L GT (18:41)
[2020-11-09] MEDS ORDERED: CRAN3875 GT (18:41)
[2020-11-09] MEDS ORDERED: CHOL400T11 GT (18:41)
[2020-11-09] MEDS ORDERED: METO25TA6 GT (18:41)
[2020-11-09] MEDS ORDERED: OMEP20CA15 GT (18:41)
[2020-11-09] MEDS ORDERED: FOLI0.8T23 GT (18:41)
[2020-11-09] MEDS ORDERED: QUET25TA GT (18:41)
[2020-11-09] MEDS ORDERED: DOCU-141 GT (18:41)
[2020-11-09] MEDS ORDERED: FERR325T23 GT (18:41)
[2020-11-09] MEDS ORDERED: NUT.237L67 GT (18:41)
[2020-11-09 18:51] LABS: BACTERIA,URINE 3+ /HPF (None Seen); SQUAMOUS EPITHELIAL CELL,UR Few /HPF (None Seen); WBC,URINE TOO NUMEROUS TO COUN /HPF (0-3)
[2020-11-09] MEDS ORDERED: NOREPINEPHRINE 8 MG in IV NS 0.9% 250 ML IV ONE (19:00)
--- NOTE | 2020-11-09 19:04 | NUR ---
CALLED [facility], PAGED DR BALBUENA
--- NOTE | 2020-11-09 19:15 | NUR ---
REC'D REPORT FROM ROBERT MAYA FOR NEIL
--- NOTE | 2020-11-09 19:54 | NUR ---
gave report to ROBERT Heath for carie
--- NOTE | 2020-11-09 19:55 | NUR ---
called lab for covid swab
--- NOTE | 2020-11-09 20:25 | NUR ---
Nicole burns in [facility] - 11/09/20 at 2025 by JOSE ELIAS CALLED NURSING SUP FOR PICC LINE
--- NOTE | 2020-11-09 20:30 | NUR ---
RECEIVED PATIENT FROM ER. PATIENT ON ROOM AIR WITH NO RESPIRATORY DISTRESS. PATIENT IN NON VERBAL FOLLOWS MINIMAL COMMAND. PATIENT ON LEVO AT 0.2MCG/KG/MIN RUNNING ON THE RAC #20. GTUBE IS ASSESSED PATENT AND CLAMPED. BP BEING SUPPORTED BY LEVO, HR ELEVATED AT 160 RESPIRATORY RATE AT 18. SKIN IS WARM AND DRY. WITH NO FEVER. SKIN NOT INTACT PICTURES TAKEN OF WOUNDS. PAGED [facility]RECTIONAL FACILITY NURSE FOR ADMITTING ORDERS.
[2020-11-09] MEDS ORDERED: ACETAMINOPHEN 325 MG TABLET MC PRN (21:00)
[2020-11-09] MEDS ORDERED: BISACODYL SUPP (10 MG) 10 MG/SUPP.RECT SUPP.RECT RC PRN (21:00)
[2020-11-09] MEDS ORDERED: NOREPINEPHRINE 8 MG in IV NS 0.9% 242 ML IV PRN (21:00)
[2020-11-09] MEDS ORDERED: clonazePAM 0.5 MG TABLET GT SCH (21:00)
[2020-11-09] MEDS ORDERED: PHENYLEPHRINE 10 MG/ML VIAL ONE (21:15)
[2020-11-09] MEDS: IV NS 0.9% 250 ML IV PRN ×2 (21:20→22:08)
[2020-11-09] MEDS ORDERED: INSULIN REGULAR, HUMAN 100 UNIT/ML 3 ML VIAL SQ PRN (21:30)
[2020-11-09] MEDS ORDERED: Z GUARD REMEDY 2 OZ OINT TP PRN (21:30)
[2020-11-09] MEDS ORDERED: DEXTROSE 50%-WATER 50 ML DISP.SYRIN IV PRN (21:30)
[2020-11-09] MEDS ORDERED: PHENYLEPHRINE 50 MG in IV NS 0.9% 245 ML IV PRN (21:30)
[2020-11-09] MEDS ORDERED: VANCOMYCIN 1 GM VIAL ONE (22:26)
[2020-11-09] MEDS ORDERED: INSULIN REGULAR, HUMAN 100 UNIT/ML 3 ML VIAL ONE (22:56)
[2020-11-09] MEDS ORDERED: INSULIN GLARGINE, 100 UNIT/ML CARTRIDGE SQ ONE (22:56)
[2020-11-09] MEDS ORDERED: ACETAMINOPHEN 325 MG TABLET PO PRN (23:00)
[2020-11-09] MEDS ORDERED: VANCOMYCIN 1 GM in IV D5W 250ml IV ONE (23:00)
[2020-11-09] MEDS: NEPRO VAN 237 ML CAN GT SCH (23:19)
--- NOTE | 2020-11-09 23:22 | NUR ---
RECEIVED ORDERS FROM [facility] TO DISCONTINUE CLONAZEPAM.
[2020-11-10] VITALS (86 sets, daily range): BP systolic 85–139; BP diastolic 27–88
[2020-11-10] MEDS ORDERED: BLOOD SUGAR DIAGNOSTIC 1 EACH STRIP IN SCH
--- NOTE | 2020-11-10 00:11 | NUR ---
Dr. Rushing notified regarding patients blood sugar of 518. Сергей ordered to start patient on insulin drip and ok to give scheduled Lantus of 10 units.
[2020-11-10] MEDS: INSULIN GLARGINE, 100 UNIT/ML CARTRIDGE SQ SCH ×2 (00:12→22:17)
[2020-11-10] MEDS: BLOOD SUGAR DIAGNOSTIC 1 EACH STRIP IN SCH ×12 (01:00→23:22)
[2020-11-10] MEDS: INSULIN REGULAR, HUMAN 100 UNIT in IV NS 0.9% 99 ML IV PRN ×2 (01:00→03:16)
[2020-11-10] MEDS: IV NS 0.9% 1,000 ML IV PRN ×2 (01:32→13:19)
[2020-11-10 04:36] LABS: BASOPHILS % (AUTO) 0.1 % (0.0-2.0); HEMATOCRIT 23 % (33-45); HEMOGLOBIN 7.3 g/dL (11.5-14.8); LYMPHOCYTES # (AUTO) 2.7 K/uL (0.8-4.8); LYMPHOCYTES % (AUTO) 12.9 % (20.0-44.0); MEAN CORPUSCULAR HGB CONC 32 g/dl (31.0-36.0); MEAN CORPUSCULAR VOLUME 99 fL (82-100); MONOCYTES # (AUTO) 0.9 K/uL (0.1-1.30); MONOCYTES % (AUTO) 4.1 % (2.0-12.0); NEUTROPHILS # (AUTO) 17.6 K/uL (1.8-8.9); NEUTROPHILS % (AUTO) 82.9 % (43.0-81.0); PLATELET COUNT (AUTO) 291 K/uL (150-450); RED BLOOD CELL COUNT(AUTO) 2.28 MIL/uL (4.0-5.2); WHITE BLOOD COUNT (AUTO) 21.2 K/uL (4.3-11.0)
[2020-11-10 04:43] LABS: IRON, SERUM 38 ug/dl (50-175); TOTAL IRON BINDING CAPACITY 151 ug/dl (250-450)
[2020-11-10 04:53] LABS: CHOLESTEROL 61 mg/dL (<200); HDL CHOLESTEROL 10 mg/dL (40-60); LDL 32 mg/dL (0-99); THYROID STIMULATING HORMONE 0.355 uIU/mL (0.358-3.74); TRIGLYCERIDES 121 mg/dL (30-150)
[2020-11-10] MEDS ORDERED: PIPERACILLIN /TAZOBACTAM 2.25 G in IV D5W 50 ML IV SCH (05:00)
[2020-11-10 05:17] LABS: ALANINE AMINOTRANSFERASE 134 U/L (12-78); ALBUMIN 2.3 g/dL (3.4-5.0); ALKALINE PHOSPHATASE 151 U/L (46-116); ASPARTATE AMINOTRANSFERASE 110 U/L (15-37); BILIRUBIN,TOTAL 0.3 mg/dL (0.2-1.0); CALCIUM, SERUM 9.5 mg/dL (8.5-10.1); CARBON DIOXIDE 16 mmol/L (21-32); CHLORIDE 109 mmol/L (98-107); CREATININE 4.2 mg/dL (0.6-1.3); MAGNESIUM 2.1 mg/dL (1.8-2.4); POTASSIUM 3.2 mmol/L (3.5-5.1); SODIUM SERUM 142 mmol/L (136-145); TOTAL PROTEIN, SERUM 6.7 g/dL (6.4-8.2)
[2020-11-10 05:26] LABS: GLUCOSE 368 mg/dL (74-106)
[2020-11-10 05:27] LABS: PHOSPHORUS 0.4 mg/dL (2.5-4.9)
[2020-11-10 05:28] LABS: UREA NITROGEN, BLOOD > 150 mg/dL (7-18)
[2020-11-10] MEDS: NEPRO VAN 237 ML CAN GT SCH (06:41)
--- NOTE | 2020-11-10 08:02 | NUR ---
WOUND CARE CONSULT: REVIEWED CHART, NURSING DOCUMENTATION AND PHOTOS WHICH INDICATE FOOT WOUNDS, PRESENT ON ADMISSION. RECOMMEND DPM CONSULT. DR FRAZIER NOTIFIED OF CONSULT REQUEST. RECOMMENDATIONS MADE FOR SKIN PROTECTION. DISCUSSED WITH NURSING STAFF. MD IN AGREEMENT WITH PLAN OF CARE.
[2020-11-10] MEDS: PANTOPRAZOLE 40 MG VIAL IV SCH (08:17)
[2020-11-10] MEDS: FERROUS SULFATE UDC 300 MG/5 ML UDC GT SCH (08:17)
[2020-11-10] MEDS: CHOLECALCIFEROL (VITAMIN D 3) 400 UNIT TABLET GT SCH (08:18)
[2020-11-10] MEDS: ASCORBIC ACID 500 MG TABLET GT SCH (08:18)
[2020-11-10] MEDS ORDERED: PROSTAT (PYXIS) 30 ML UDC GT SCH (09:00)
[2020-11-10] MEDS: ARGININE/GLUTAMINE/CALCIUM BMB 1 EACH POWD.PACK PO SCH ×2 (09:55→17:28)
[2020-11-10] MEDS ORDERED: PIPERACILLIN /TAZOBACTAM 3.375 G in IV D5W 100 ML IV SCH (10:00)
[2020-11-10] MEDS ORDERED: DEXTROSE 50%-WATER 50 ML DISP.SYRIN IV PRN (10:00)
[2020-11-10 11:05] LABS: CALCIUM, SERUM 9.7 mg/dL (8.5-10.1); POTASSIUM 3.2 mmol/L (3.5-5.1)
--- NOTE | 2020-11-10 11:08 | NUR ---
RN NOTE 0715: Received patient resting. alert to name, does not follow comamnds. Tolerated room air. With CARL PICC intact. On Zia 0.4, will titrate as ordered. SR 80's on the monitor. With GT intact, clamped. On Insulin drip, latest BG 122. IVF NS @ 80 infusing. With Mcelroy cath intact, noted with minimal cloudy UOP. 0930: S/E by Nasir EXECUTIVE CYBER LEADER, with order to DC insulin drip and start on mild SS q6 and restart TF per FNS. 1100: Spoke with RD, awaitng RD rec.
[2020-11-10] MEDS: FLUDROCORTISONE 0.1 MG TABLET GT SCH (13:01)
[2020-11-10] MEDS: HYDROCORTISONE SOD SUCCINATE 100 MG/2 ML VIAL IV SCH ×2 (13:01→21:37)
[2020-11-10] MEDS: IV 1/2NS 1000 ML 1,000 ML IV PRN (14:27)
[2020-11-10] MEDS: NEPRO 1,000 ML BOTTLE GT PRN (14:44)
[2020-11-10] MEDS ORDERED: POTASSIUM PHOSPHATE MM 15 MMOL in IV NS 0.9% 250 ML IV ONE (15:00)
[2020-11-10] MEDS ORDERED: Sodium Phosphate 15 MMOL in IV NS 0.9% 245 ML IV ONE (16:00)
[2020-11-10] MEDS: CEFEPIME 1 GM in IV D5W 50 ML IV SCH (17:29)
[2020-11-10] MEDS: INSULIN REGULAR, HUMAN 100 UNIT/ML 3 ML VIAL SQ PRN ×2 (17:40→23:23)
--- NOTE | 2020-11-10 20:00 | NUR ---
RN NOTE RECEIVED PT IN BED, AWAKE, DOES NOT FOLLOW ANY COMMANDS, NONVERBAL. PT ON ROOM AIR, SATING 98 %. NO S/SX OF DISTRESS NOTED. GT IN PLACE AND PATENT, ON NEPRO FEEDING AT 30ML/HR. NOTED WITH 130 RESIDUALS, HELD FEEDING AT THIS TIME. KEPT HOB ELEVATED. PICC LINE INTACT AND PATENT, FLUSHES WELL. ON IVF 1/2 NS RUNNING AT 100ML/HR. OH DRAINING WELL, CLEAR YELLOW URINE OUTPUT. WILL CONTINUE TO MONITOR, ALL SAFETY MEASURE IN PLACE.
--- NOTE | 2020-11-10 20:01 | NUR ---
RN NOTE PT BLOOD CULTURE RESULT GRAM POSITIVE COCCI IN [facility]. DR CABRERA NOTIFIED. PT CURRENTLY ON VANCOMYCIN AND CEFEPIME. NO NEW ORDER WERE MADE.
[2020-11-10] MEDS: MUPIROCIN OINT 2% 22 GM TUBE NS SCH (22:01)
--- NOTE | 2020-11-10 22:10 | NUR ---
RN NOTE NO MORE GT RESIDUALS WERE NOTED. RESTARTED GT FEEDING.
[2020-11-11] VITALS (30 sets, daily range): BP systolic 97–138; BP diastolic 50–73
[2020-11-11] MEDS: IV 1/2NS 1000 ML 1,000 ML IV PRN ×2 (02:11→14:45)
[2020-11-11] MEDS: IV NS 0.9% 250 ML IV PRN (05:04)
[2020-11-11] MEDS: HYDROCORTISONE SOD SUCCINATE 100 MG/2 ML VIAL IV SCH ×3 (05:04→23:03)
[2020-11-11 05:11] LABS: BASOPHILS % (AUTO) 0.1 % (0.0-2.0); HEMATOCRIT 24 % (33-45); HEMOGLOBIN 7.8 g/dL (11.5-14.8); LYMPHOCYTES # (AUTO) 0.9 K/uL (0.8-4.8); LYMPHOCYTES % (AUTO) 4.5 % (20.0-44.0); MEAN CORPUSCULAR HGB CONC 33 g/dl (31.0-36.0); MEAN CORPUSCULAR VOLUME 97 fL (82-100); MONOCYTES # (AUTO) 0.2 K/uL (0.1-1.30); MONOCYTES % (AUTO) 1.1 % (2.0-12.0); NEUTROPHILS # (AUTO) 19.4 K/uL (1.8-8.9); NEUTROPHILS % (AUTO) 94.3 % (43.0-81.0); PLATELET COUNT (AUTO) 277 K/uL (150-450); RED BLOOD CELL COUNT(AUTO) 2.46 MIL/uL (4.0-5.2); WHITE BLOOD COUNT (AUTO) 20.6 K/uL (4.3-11.0)
[2020-11-11 05:25] LABS: ALBUMIN 2.1 g/dL (3.4-5.0); BILIRUBIN,DIRECT 0.1 mg/dL (0.0-0.2); BILIRUBIN,TOTAL 0.3 mg/dL (0.2-1.0); CALCIUM, SERUM 8.2 mg/dL (8.5-10.1); CREATININE 3.8 mg/dL (0.6-1.3); MAGNESIUM 2.1 mg/dL (1.8-2.4); PHOSPHORUS 2.2 mg/dL (2.5-4.9); POTASSIUM 3.6 mmol/L (3.5-5.1); TOTAL PROTEIN, SERUM 6.4 g/dL (6.4-8.2)
[2020-11-11] MEDS: INSULIN REGULAR, HUMAN 100 UNIT/ML 3 ML VIAL SQ PRN ×3 (05:27→18:04)
[2020-11-11] MEDS: BLOOD SUGAR DIAGNOSTIC 1 EACH STRIP IN SCH ×3 (05:34→18:04)
[2020-11-11] MEDS: CEFEPIME 1 GM in IV D5W 50 ML IV SCH ×2 (05:36→18:04)
--- NOTE | 2020-11-11 07:00 | NUR ---
RN NOTE PT TOLERATING ROOM AIR. NO RESP DISTRESS NOTED. O2 SAT AT 98-100%. NO SIGNS OF PAIN OR DISCOMFORT NOTED. TELE SHOWS SR WITH HR OF 84. CONTINUE ON GT FEEDING WITH MINIMAL RESIDUALS. KEPT HOB ELEVATED. CONTINE ON IVF 1/2 NS AT 100ML/HR NO SIGNS OF INFILTRATION NOTED. WOUND DRESSINGS INTACT, REPOSITIONED Q2H. ON FREQUENT VISUAL MONITORING. OH CATH DRAINING WELL, 600ML URINE OUTPUT. WILL ENDORSE TO NEXT SHIFT NURSE FOR NEIL.
--- NOTE | 2020-11-11 07:39 | NUR ---
RN NOTE: PT RECEIVED ALERT AWAKE, O x 1. OPEN EYES SPONTANEOUSLY. ON RA, NO BREATHING DISTRESS NOTED. HOB ELEVATED. G-TUBE FEEDING RUNNING, TOLERATING WELL. IV PICC LINE D/C/I, RUNNING IV FLUIDS ORDERED. SAFETY MEASURES OBSERVED. CONTINUE TO MONITOR. Addendum: 11/11/20 at 0751 by RICO GARCIA RN F/C INTACT, DRAINING WELL WITH GRAVITY.
[2020-11-11] MEDS: PANTOPRAZOLE 40 MG VIAL IV SCH (08:20)
[2020-11-11] MEDS: CHOLECALCIFEROL (VITAMIN D 3) 400 UNIT TABLET GT SCH (08:20)
[2020-11-11] MEDS: FERROUS SULFATE UDC 300 MG/5 ML UDC GT SCH (08:20)
[2020-11-11] MEDS: FLUDROCORTISONE 0.1 MG TABLET GT SCH (08:20)
[2020-11-11] MEDS: ASCORBIC ACID 500 MG TABLET GT SCH (08:20)
[2020-11-11] MEDS: MUPIROCIN OINT 2% 22 GM TUBE NS SCH ×2 (08:21→23:04)
[2020-11-11] MEDS: ARGININE/GLUTAMINE/CALCIUM BMB 1 EACH POWD.PACK PO SCH ×2 (08:21→17:08)
[2020-11-11] MEDS: VANCOMYCIN 500 MG in IV D5W 100 ML IV SCH (10:53)
--- NOTE | 2020-11-11 18:48 | NUR ---
RN note: Noted ST episode in 150s for approx [address] Purvis notified, no new orders. Continue to monitor,.
[2020-11-11] MEDS ORDERED: INSULIN GLARGINE, 100 UNIT/ML CARTRIDGE SQ SCH (22:00)
[2020-11-12] VITALS (67 sets, daily range): BP systolic 45–141; BP diastolic 21–81
[2020-11-12] MEDS: BLOOD SUGAR DIAGNOSTIC 1 EACH STRIP IN SCH ×5 (00:13→23:35)
[2020-11-12] MEDS: INSULIN REGULAR, HUMAN 100 UNIT/ML 3 ML VIAL SQ PRN ×5 (00:19→23:27)
[2020-11-12] MEDS: IV 1/2NS 1000 ML 1,000 ML IV PRN ×2 (00:21→14:16)
[2020-11-12] MEDS: MORPHINE SULFATE INJ 2 MG/ML DISP.SYRIN IV PRN (02:32)
--- NOTE | 2020-11-12 02:33 | NUR ---
AT 1999 PATIENT SLEEPING ROOM AIR SAT 94% ON MONITOR SINUS LUNGS DIMINISH TO LISTEN NO COUGH. HAS RIGHT UPPER PICC LINE INFUSING 1/2NS 100 HOUR. HAS 18 GA IN BOTH HANDS. HAS GT TURNED OFF 1999 RESIDUAL 350CC CHECK AGAIN AT 0000 150CC RESIDAL. FEEDING STILL TURNED OFF. NO BOWELL MOVEMENT. HAS F/C 400CC OUT AT 0230 AT MID NITE BLOOD SUGAR 282 RECEIVED 9 UNITS OF REG. INSULIN S.Q. AT 2200 RECEIVED LANTUS 13 UNITS BLOOD SUGAR 293. PATIENT GIVEN BATH AT 0230 RESTING IN BED. PATIENT VERY CONTRACTED IN LEGS GIVEN MORPHINE 1 MG IVP TO HELP PATIENT WITH DISCOMFORT.
[2020-11-12 04:47] LABS: BASOPHILS % (AUTO) 0.1 % (0.0-2.0); HEMATOCRIT 22 % (33-45); HEMOGLOBIN 7.4 g/dL (11.5-14.8); LYMPHOCYTES # (AUTO) 1.1 K/uL (0.8-4.8); LYMPHOCYTES % (AUTO) 6.1 % (20.0-44.0); MEAN CORPUSCULAR HGB CONC 33 g/dl (31.0-36.0); MEAN CORPUSCULAR VOLUME 97 fL (82-100); MONOCYTES # (AUTO) 0.4 K/uL (0.1-1.30); MONOCYTES % (AUTO) 2.3 % (2.0-12.0); NEUTROPHILS # (AUTO) 16.4 K/uL (1.8-8.9); NEUTROPHILS % (AUTO) 91.5 % (43.0-81.0); PLATELET COUNT (AUTO) 303 K/uL (150-450); WHITE BLOOD COUNT (AUTO) 17.9 K/uL (4.3-11.0)
[2020-11-12 04:56] LABS: CALCIUM, SERUM 7.7 mg/dL (8.5-10.1); CREATININE 3.4 mg/dL (0.6-1.3); MAGNESIUM 2.1 mg/dL (1.8-2.4)
[2020-11-12] MEDS: HYDROCORTISONE SOD SUCCINATE 100 MG/2 ML VIAL IV SCH ×3 (05:03→21:54)
[2020-11-12] MEDS: CEFEPIME 1 GM in IV D5W 50 ML IV SCH ×2 (06:16→17:09)
--- NOTE | 2020-11-12 08:00 | NUR ---
rn notes seen patient r/o covid, and isolation mrsa of nares. patient not responding conversation, awake, oral care done, room air, infusing 1/2 NS at 100ml/hr on right UA picc line intact. Running NEPRO 30ml, residual is 10ml, hold mack packet per director pediatric because of low bp.Keep HOB elevated for aspiration precaution, assist turn and reposition q 2 hr. patient daily wait is 119.1lb. seen educational psychology professor Dr Purvis, , and forest law and policy professor Dr Thompson. will monitoring.
[2020-11-12] MEDS: ARGININE/GLUTAMINE/CALCIUM BMB 1 EACH POWD.PACK PO SCH ×2 (09:00→17:30)
--- NOTE | 2020-11-12 09:11 | NUR ---
rn notes get order via stereotype molder Dr Yaniv kwok to transfer patient to the med/surge.
[2020-11-12] MEDS: FERROUS SULFATE UDC 300 MG/5 ML UDC GT SCH (10:15)
[2020-11-12] MEDS: FLUDROCORTISONE 0.1 MG TABLET GT SCH (10:16)
[2020-11-12] MEDS: PANTOPRAZOLE 40 MG VIAL IV SCH (10:16)
[2020-11-12] MEDS: CHOLECALCIFEROL (VITAMIN D 3) 400 UNIT TABLET GT SCH (10:16)
[2020-11-12] MEDS: ASCORBIC ACID 500 MG TABLET GT SCH (10:16)
[2020-11-12] MEDS: MUPIROCIN OINT 2% 22 GM TUBE NS SCH ×2 (10:17→21:55)
--- NOTE | 2020-11-12 11:29 | NUR ---
rn notes notified Dr Clemons about patient bun- 186,creatinine 3.4, and potassium level is 3.0. per md no new orders, will monitoring.
[2020-11-12] MEDS: NEPRO 1,000 ML BOTTLE GT PRN (14:24)
--- NOTE | 2020-11-12 14:28 | NUR ---
rn notes bs-289 mg/dl, coverage given.
--- NOTE | 2020-11-12 18:30 | NUR ---
rn notes due medication administered, vss, no acute respiratory distress, infusing 1/2 ns at 100 ml/hr, bs-161 mg/dl coverage given, assist turn and reposition q 2 hr, Mcelroy draining via gravity, endorsed oncoming nurse follow plan of care. PATIENT WILL TRANSFER TO MED/SURG unit. waiting FOR BED placement.
--- NOTE | 2020-11-12 21:56 | NUR ---
DESK CLERKS SUPERVISOR. INITIAL ASSESSMENT. RECEIVED THE PT REST ON THE BED. AWAKE, ALERT. NONVERBAL.. PT IS ROOM AIR. SAT 98%. NO ACUTE DISTRESS NOTED. WELDING TECHNICIAN SHOWING NSR. IV LT UPPER ARM PICC LINE. IVF 1/2 NS 100 ML/H. HOB ELEVATED. GT FEEDING NEPRO 30 ML/H. FC PATENT. URINE DRAINING. WILL CONTINUE TO MONITOR VITALS.
[2020-11-12] MEDS: VANCOMYCIN 500 MG in IV D5W 100 ML IV SCH (23:00)
[2020-11-12] MEDS: INSULIN GLARGINE, 100 UNIT/ML CARTRIDGE SQ SCH (23:31)
[2020-11-13] VITALS (37 sets, daily range): BP systolic 51–143; BP diastolic 25–92
--- NOTE | 2020-11-13 03:05 | NUR ---
agriculture scientist. am care given. remaining same room air sat 99%. no acute disatress noted. quality assurance monitor showing nsr. iv rt upper arm picc line. ivf 111 1/2 ns @ 100 ml/h. fc patet. urine draining. hob elevated. turn and reposition q2h. will continue to monitor vitals.
[2020-11-13 04:40] LABS: BASOPHILS % (AUTO) 0.1 % (0.0-2.0); HEMATOCRIT 25 % (33-45); HEMOGLOBIN 8.4 g/dL (11.5-14.8); LYMPHOCYTES # (AUTO) 1.1 K/uL (0.8-4.8); LYMPHOCYTES % (AUTO) 5.6 % (20.0-44.0); MEAN CORPUSCULAR HGB CONC 33 g/dl (31.0-36.0); MEAN CORPUSCULAR VOLUME 97 fL (82-100); MONOCYTES # (AUTO) 0.4 K/uL (0.1-1.30); NEUTROPHILS # (AUTO) 18.1 K/uL (1.8-8.9); NEUTROPHILS % (AUTO) 92.3 % (43.0-81.0); PLATELET COUNT (AUTO) 366 K/uL (150-450); RED BLOOD CELL COUNT(AUTO) 2.61 MIL/uL (4.0-5.2); WHITE BLOOD COUNT (AUTO) 19.6 K/uL (4.3-11.0)
[2020-11-13] MEDS: IV 1/2NS 1000 ML 1,000 ML IV PRN (04:41)
[2020-11-13] MEDS: HYDROCORTISONE SOD SUCCINATE 100 MG/2 ML VIAL IV SCH ×3 (04:52→20:11)
[2020-11-13] MEDS: CEFEPIME 1 GM in IV D5W 50 ML IV SCH (05:08)
[2020-11-13] MEDS: BLOOD SUGAR DIAGNOSTIC 1 EACH STRIP IN SCH ×4 (05:08→23:10)
[2020-11-13] MEDS: INSULIN REGULAR, HUMAN 100 UNIT/ML 3 ML VIAL SQ PRN ×4 (05:11→23:01)
[2020-11-13 05:14] LABS: ALBUMIN 1.9 g/dL (3.4-5.0); BILIRUBIN,DIRECT 0.1 mg/dL (0.0-0.2); BILIRUBIN,TOTAL 0.2 mg/dL (0.2-1.0); CALCIUM, SERUM 7.4 mg/dL (8.5-10.1); MAGNESIUM 2.1 mg/dL (1.8-2.4); PHOSPHORUS 1.9 mg/dL (2.5-4.9); POTASSIUM 3.4 mmol/L (3.5-5.1); TOTAL PROTEIN, SERUM 5.8 g/dL (6.4-8.2)
--- NOTE | 2020-11-13 07:35 | NUR ---
WOUND CARE CONSULT: PT PRESENTS WITH LEFT ANKLE FRAGILE SCAR, PINK IN COLOR, PRESENT ON ADMISSION. PT ALSO NOTED TO HAVE SACRAL SCARRING. RECOMMENDATIONS MADE FOR SKIN PROTECTION. DISCUSSED WITH NURSING STAFF. DEFER TO DPM CURRENTLY ON CASE FOR LOWER EXTREMITIES. FOAM DRESSINGS IN PLACE. MD IN AGREEMENT WITH PLAN OF CARE.
--- NOTE | 2020-11-13 08:00 | NUR ---
RN NOTES patient isolation mrsa of nares, AND R/O COVID. not acute responding conversation, A/A/Ox1 room air, infusing 1/2 NS at 100ml/hr on right UA picc line intact. Running NEPRO 30ml, no residual. Keep HOB elevated for aspiration precaution, assist turn and reposition q 2 hr. patient will transfer to the med/surge unit waiting for bed. will monitoring.
[2020-11-13] MEDS: CHOLECALCIFEROL (VITAMIN D 3) 400 UNIT TABLET GT SCH (09:35)
[2020-11-13] MEDS: FERROUS SULFATE UDC 300 MG/5 ML UDC GT SCH (09:35)
[2020-11-13] MEDS: PANTOPRAZOLE 40 MG/PACK PACK NG SCH (09:35)
[2020-11-13] MEDS: ASCORBIC ACID 500 MG TABLET GT SCH (09:35)
[2020-11-13] MEDS: FLUDROCORTISONE 0.1 MG TABLET GT SCH (09:35)
[2020-11-13] MEDS: ARGININE/GLUTAMINE/CALCIUM BMB 1 EACH POWD.PACK PO SCH ×2 (09:35→17:22)
[2020-11-13] MEDS: MUPIROCIN OINT 2% 22 GM TUBE NS SCH ×2 (09:36→20:25)
[2020-11-13] MEDS ORDERED: Sodium Phosphate 30 MMOL in IV NS 0.9% 250 ML IV SCH (12:00)
--- NOTE | 2020-11-13 12:00 | NUR ---
rn notes PATIENT TRANSFERRED TO THE MED/SURGE UNIT ROOM 115 bed 1. PATIENYT STABLE, NO ACUTE RESPIRATORY DISTRESS, BS-230 MG/GL. REPORT GIVEN BEDSIDE RN FOLLOW PLAN OF CARE.
--- NOTE | 2020-11-13 12:00 | NUR ---
RN NOTE RECEIVED PATIENT FROM ICU FOR CONTINUITY OF CARE. PATIENT IS A/O X 1, RESPONDS TO TACTILE AND VERBAL STIMULI. PATIENT IS BREATHING EVENLY AND NONLABORED ON ROOM AIR. NO SIGNS OF DISTRESS NOTED. PATIENT DOES NOT SHOW SIGNS OF PAIN AT THIS TIME. PATIENT HAS GTUBE IN PLACE WITH FEEDINGS AT 30 ML/HR, TOLERATING WELL. IV ACCESS ON R UPPER ARM PICC LINE AND LEFT WRIST, BOTH PATENT AND INTACT RUNNING 1/2 NS @ 100ML/HR. SAFETY MEASURES AND ASPIRATION PRECAUTIONS IN PLACE, BED LOW LOCKED AND CALL LIGHT WITHIN REACH. WILL CONTINUE TO MONITOR
--- NOTE | 2020-11-13 12:50 | NUR ---
RN NOTE WOUND CARE PERFORMED
[2020-11-13] MEDS ORDERED: CEFAZOLIN 2 GM in IV D5W 100 ML IV ONE (14:00)
--- NOTE | 2020-11-13 18:23 | NUR ---
MS RN CLOSING NOTE PATIENT RESTING IN BED. PATIENT IS A/O X 1, RESPONDS TO TACTILE AND VERBAL STIMULI. PATIENT IS BREATHING EVENLY AND NONLABORED ON ROOM AIR. NO SIGNS OF DISTRESS NOTED. PATIENT DOES NOT SHOW SIGNS OF PAIN AT THIS TIME. PATIENT HAS GTUBE IN PLACE WITH FEEDINGS AT 30 ML/HR, TOLERATING WELL. IV ACCESS ON R UPPER ARM PICC LINE AND LEFT WRIST, BOTH PATENT AND INTACT RUNNING 1/2 NS @ 100ML/HR. ALL MEDICATION GIVEN ORDERED. WOUND CARE PERFORMED DURING SHIFT. SAFETY MEASURES AND ASPIRATION PRECAUTIONS IN PLACE, BED LOW LOCKED AND CALL LIGHT WITHIN REACH. WILL ENDORSE TO ONCOMING SHIFT
--- NOTE | 2020-11-13 18:54 | NUR ---
RN NOTE PATIENT HAD RIGHT WRIST RESTRAINT FROM ICU, REMOVED RESTRAINT, PATIENT STARTED PULLING AT OH, CHARGE MADE AWARE, NOTIFIED, WITH ORDER FOR RIGHT SOFT WRIST RESTRAINT. WILL ENDORSE
--- NOTE | 2020-11-13 19:27 | NUR ---
RN NOTES PATIENT RESTING IN BED. PATIENT IS A/O X 1, RESPONDS TO TACTILE AND VERBAL STIMULI. PATIENT IS BREATHING EVENLY AND NONLABORED ON ROOM AIR. NO SIGNS OF DISTRESS NOTED. PATIENT DOES NOT SHOW SIGNS OF PAIN AT THIS TIME. PATIENT HAS GTUBE IN PLACE WITH FEEDINGS AT 30 ML/HR, TOLERATING WELL. IV ACCESS ON R UPPER ARM PICC LINE AND LEFT WRIST, BOTH PATENT AND INTACT RUNNING 1/2 NS @ 100ML/HR. RIGHT SOFT WRIST RESTRAINT NOTED ON AT THIS TIME REMOVED CIRCULATION CHECK DONE AND PLACED BACK ON.SAFETY MEASURES AND ASPIRATION PRECAUTIONS IN PLACE, BED LOW LOCKED AND CALL LIGHT WITHIN REACH. WILL CONTINUE TO MONITOR.
--- NOTE | 2020-11-13 20:25 | NUR ---
RN NOTES PUT IN MANUAL BARCODE PT MED AT BEDSIDE PT ON ISOLATION FOR COVID RULE OUT.
[2020-11-13] MEDS: INSULIN GLARGINE, 100 UNIT/ML CARTRIDGE SQ SCH (23:00)
[2020-11-14] MEDS: NEPRO 1,000 ML BOTTLE GT PRN (01:31)
[2020-11-14] MEDS: IV 1/2NS 1000 ML 1,000 ML IV PRN ×2 (01:31→11:41)
[2020-11-14] MEDS: CEFAZOLIN 1 GM in IV D5W 50 ML IV SCH ×2 (02:00→13:00)
--- NOTE | 2020-11-14 02:15 | NUR ---
RN NOTES ASKED CHARGE NURSE FOR ANCEF UNABLE TO FIND IN THE [facility] CALLED AND FAXED ORDER TO [facility] NOT AVAILABLE. WILL CONTINUE TO MONITOR
[2020-11-14 05:00] VITALS: BP 117/71
[2020-11-14] MEDS: HYDROCORTISONE SOD SUCCINATE 100 MG/2 ML VIAL IV SCH ×3 (05:21→22:34)
[2020-11-14] MEDS: BLOOD SUGAR DIAGNOSTIC 1 EACH STRIP IN SCH ×3 (05:27→17:21)
[2020-11-14] MEDS: INSULIN REGULAR, HUMAN 100 UNIT/ML 3 ML VIAL SQ PRN ×3 (05:30→17:24)
--- NOTE | 2020-11-14 06:28 | NUR ---
RN NOTES PATIENT RESTING IN BED. PATIENT IS A/O X 1, RESPONDS TO TACTILE AND VERBAL STIMULI. PATIENT IS BREATHING EVENLY AND NONLABORED ON ROOM AIR. NO SIGNS OF DISTRESS NOTED. PATIENT DOES NOT SHOW SIGNS OF PAIN AT THIS TIME. PATIENT HAS GTUBE IN PLACE WITH FEEDINGS AT 30 ML/HR, TOLERATING WELL. IV ACCESS ON R UPPER ARM PICC LINE AND LEFT WRIST, BOTH PATENT AND INTACT RUNNING 1/2 NS @ 100ML/HR. RIGHT SOFT WRIST RESTRAINT NOTED ON AT THIS TIME REMOVED CIRCULATION CHECK DONE AND PLACED BACK ON.SAFETY MEASURES AND ASPIRATION PRECAUTIONS IN PLACE, BED LOW LOCKED AND CALL LIGHT WITHIN REACH. WILL ENDORSE CARE TO DAY SHIFT NURSE.
[2020-11-14 07:13] LABS: BASOPHILS % (AUTO) 0.1 % (0.0-2.0); HEMATOCRIT 25 % (33-45); HEMOGLOBIN 8.3 g/dL (11.5-14.8); LYMPHOCYTES # (AUTO) 1.4 K/uL (0.8-4.8); LYMPHOCYTES % (AUTO) 7.9 % (20.0-44.0); MEAN CORPUSCULAR HGB CONC 33 g/dl (31.0-36.0); MEAN CORPUSCULAR VOLUME 96 fL (82-100); MONOCYTES # (AUTO) 0.4 K/uL (0.1-1.30); MONOCYTES % (AUTO) 2.3 % (2.0-12.0); NEUTROPHILS # (AUTO) 15.5 K/uL (1.8-8.9); NEUTROPHILS % (AUTO) 89.7 % (43.0-81.0); PLATELET COUNT (AUTO) 412 K/uL (150-450); RED BLOOD CELL COUNT(AUTO) 2.61 MIL/uL (4.0-5.2); WHITE BLOOD COUNT (AUTO) 17.3 K/uL (4.3-11.0)
--- NOTE | 2020-11-14 07:38 | NUR ---
RN OPENING NOTES RECEIVED PT IN BED, AWAKE AND RESPONSIVE. NO SOB OR DISTRESS NOTED. PT ON ROOM AIR AND TOLERATING IT WILL. PT ON R SOFT RESTRAINTS DUE TO ATTEMPTED PULLING OF OH. PT ON NEPRO CONTINUOUS FEEDING AT 30ML/HRX24 HOURS. CARL PIC NOTED WITH 12 NS RUNNING @ 100ML/HR, PATENT WITH NO S/S OF INFECTION. SAFETY MEASURES DONE, BED IN LOWEST POSITION, LOCK, WITH CALL LIGHT WITHIN REACH. WILL CONTINUE TO MONITOR.
[2020-11-14 07:45] LABS: CALCIUM, SERUM 7.2 mg/dL (8.5-10.1); CREATININE 2.6 mg/dL (0.6-1.3); MAGNESIUM 2.2 mg/dL (1.8-2.4); PHOSPHORUS 3.8 mg/dL (2.5-4.9); POTASSIUM 2.9 mmol/L (3.5-5.1)
[2020-11-14] MEDS: PANTOPRAZOLE 40 MG/PACK PACK NG SCH (08:17)
[2020-11-14] MEDS: FERROUS SULFATE UDC 300 MG/5 ML UDC GT SCH (08:17)
[2020-11-14] MEDS: ASCORBIC ACID 500 MG TABLET GT SCH (08:17)
[2020-11-14] MEDS: CHOLECALCIFEROL (VITAMIN D 3) 400 UNIT TABLET GT SCH (08:19)
[2020-11-14] MEDS: FLUDROCORTISONE 0.1 MG TABLET GT SCH (08:19)
[2020-11-14] MEDS: MUPIROCIN OINT 2% 22 GM TUBE NS SCH ×2 (08:34→22:43)
[2020-11-14] MEDS: ARGININE/GLUTAMINE/CALCIUM BMB 1 EACH POWD.PACK PO SCH ×2 (09:04→16:39)
[2020-11-14 10:00] VITALS: BP 138/65
[2020-11-14] MEDS: POTASSIUM CHLORIDE 20 MEQ POWDER PACKET GT SCH (12:10)
--- NOTE | 2020-11-14 17:15 | NUR ---
MS/RN RECEIVING NOTES PATIENT IS A TRANSFER FROM [facility]. REPORT GIVEN BY AMANDA [facility] RN. PATIENT IS AWAKE, ONLY RESPONSIVE TO PAIN. STABLE ON ROOM AIR AT 98%. V/S FOLLOWS: 139/67, HR-83, RR-18, T-98.8. ON SOFT RESTRAINTS ON RIGHT HAND. IV ACCESS ON RIGHT UPPER ARM INTACT WITH A RUNNING 1/2 NS @100 ML/HR. ON CONTINUOUS NEPRO @30ML/HR X 24 HRS. NO DISTRESS NOTED. SAFETY PRECAUTIONS IN PLACED. BED LOCKED ON LOWEST POSITION, SIDE RAILS UPX3, VISUAL CHECK ALL THE TIME. WILL ENDORSE TO THE NEXT SHIFT.
--- NOTE | 2020-11-14 17:57 | NUR ---
RN NOTES; PT PCR RESULTS ARE NEGATIVE. PT TRANSFERRED TO . GAVE REPORT TO RAINA ANDERSEN RN. PT LEFT [facility]/TELE IN STABLE CONDITION.
[2020-11-14 19:41] VITALS: BP 142/80
--- NOTE | 2020-11-14 20:16 | NUR ---
MS/TELE/RN RECEIVED PATIENT IN BED AWAKE, N0N VERBAL, APPEAR COMFORTABLE, NO SIGNS OF DISTRESS NOTED, HOB ELEVATED, G TUBE FEEDING INFUSING, NO RESIDUAL NOTED, SOFT WRIST RESTRAIN IN RIGHT WRIST NOTED PATIENT TRIES TO PULL OUT TUBES, WILL MONITOR.
[2020-11-14] MEDS: INSULIN GLARGINE, 100 UNIT/ML CARTRIDGE SQ SCH (22:41)
[2020-11-15] MEDS: INSULIN REGULAR, HUMAN 100 UNIT/ML 3 ML VIAL SQ PRN ×5 (00:54→23:59)
[2020-11-15] MEDS: BLOOD SUGAR DIAGNOSTIC 1 EACH STRIP IN SCH ×5 (00:55→23:57)
[2020-11-15] MEDS: IV 1/2NS 1000 ML 1,000 ML IV PRN ×2 (01:01→15:45)
[2020-11-15] MEDS: CEFAZOLIN 1 GM in IV D5W 50 ML IV SCH ×2 (02:13→13:34)
[2020-11-15] MEDS: HYDROCORTISONE SOD SUCCINATE 100 MG/2 ML VIAL IV SCH ×3 (05:21→21:15)
[2020-11-15] MEDS: NEPRO 1,000 ML BOTTLE GT PRN (06:15)
--- NOTE | 2020-11-15 07:00 | NUR ---
MS/TELE/RN PATIENT IS AWAKE, COMFORTABLE, NO SIGNS OF DISTRESS NOTED, HOB ELEVATED, GT FEEDING INFUSING, ALL NEEDS ATTENDED AT THIS TIME, ENDORSED TO NEXT RN FOR CONTINUITY OF CARE.
--- NOTE | 2020-11-15 07:13 | NUR ---
MS RN OPENING NOTE RECEIVED PATIENT RESTING IN BED. PATIENT IS A/O X 1, RESPONDS TO TACTILE AND VERBAL STIMULI. PATIENT IS BREATHING EVENLY AND NONLABORED ON ROOM AIR. NO SIGNS OF DISTRESS NOTED. PATIENT DOES NOT SHOW SIGNS OF PAIN AT THIS TIME. PATIENT HAS GTUBE IN PLACE WITH FEEDINGS AT 30 ML/HR, TOLERATING WELL. IV ACCESS ON R UPPER ARM PICC LINE AND LEFT WRIST, BOTH PATENT AND INTACT RUNNING 1/2 NS @ 100ML/HR. SAFETY MEASURES AND ASPIRATION PRECAUTIONS IN PLACE, BED LOW LOCKED AND CALL LIGHT WITHIN REACH. WILL CONTINUE TO MONITOR
[2020-11-15 08:00] VITALS: BP 135/89
[2020-11-15] MEDS: PANTOPRAZOLE 40 MG/PACK PACK NG SCH (08:15)
[2020-11-15] MEDS: CHOLECALCIFEROL (VITAMIN D 3) 400 UNIT TABLET GT SCH (08:15)
[2020-11-15] MEDS: FERROUS SULFATE UDC 300 MG/5 ML UDC GT SCH (08:15)
[2020-11-15] MEDS: FLUDROCORTISONE 0.1 MG TABLET GT SCH (08:16)
[2020-11-15] MEDS: POTASSIUM CHLORIDE 20 MEQ POWDER PACKET GT SCH (08:16)
[2020-11-15] MEDS: ASCORBIC ACID 500 MG TABLET GT SCH (08:16)
[2020-11-15] MEDS: MUPIROCIN OINT 2% 22 GM TUBE NS SCH ×2 (08:17→21:26)
[2020-11-15] MEDS: ARGININE/GLUTAMINE/CALCIUM BMB 1 EACH POWD.PACK PO SCH ×2 (08:18→16:59)
[2020-11-15 09:29] LABS: BASOPHILS # (AUTO) 0.1 K/uL (0.0-0.2); BASOPHILS % (AUTO) 0.3 % (0.0-2.0); HEMATOCRIT 26 % (33-45); HEMOGLOBIN 8.8 g/dL (11.5-14.8); LYMPHOCYTES # (AUTO) 1.4 K/uL (0.8-4.8); MEAN CORPUSCULAR HGB CONC 34 g/dl (31.0-36.0); MEAN CORPUSCULAR VOLUME 96 fL (82-100); MONOCYTES # (AUTO) 0.4 K/uL (0.1-1.30); NEUTROPHILS # (AUTO) 20.8 K/uL (1.8-8.9); NEUTROPHILS % (AUTO) 91.7 % (43.0-81.0); PLATELET COUNT (AUTO) 465 K/uL (150-450); RED BLOOD CELL COUNT(AUTO) 2.74 MIL/uL (4.0-5.2); WHITE BLOOD COUNT (AUTO) 22.7 K/uL (4.3-11.0)
[2020-11-15 09:54] LABS: CALCIUM, SERUM 7.4 mg/dL (8.5-10.1); CREATININE 2.4 mg/dL (0.6-1.3); POTASSIUM 2.9 mmol/L (3.5-5.1)
[2020-11-15] MEDS: POTASSIUM CL. PREMIX PERIPHER. 50 ML IV SCH ×8 (10:44→17:41)
[2020-11-15 11:16] LABS: LYMPHOCYTES % (MANUAL) 7 % (16-48); MONOCYTES % (MANUAL) 1 % (0-11.0); NEUTROPHILS % (MANUAL) 92 (42-76)
[2020-11-15 16:00] VITALS: BP 155/74
--- NOTE | 2020-11-15 18:18 | NUR ---
MS RN CLOSING NOTE PATIENT RESTING IN BED. PATIENT IS A/O X 1, RESPONDS TO TACTILE AND VERBAL STIMULI. PATIENT IS BREATHING EVENLY AND NONLABORED ON ROOM AIR. NO SIGNS OF DISTRESS NOTED. PATIENT DOES NOT SHOW SIGNS OF PAIN AT THIS TIME. PATIENT HAS G-TUBE IN PLACE WITH FEEDINGS AT 30 ML/HR, TOLERATING WELL. IV ACCESS ON R UPPER ARM PICC LINE AND LEFT WRIST, BOTH PATENT AND INTACT RUNNING 1/2 NS @ 100ML/HR. ALL MEDICATION GIVEN ORDERED. WOUND CARE PERFORMED DURING SHIFT. SAFETY MEASURES AND ASPIRATION PRECAUTIONS IN PLACE, BED LOW LOCKED AND CALL LIGHT WITHIN REACH. WILL ENDORSE TO ONCOMING SHIFT
--- NOTE | 2020-11-15 19:30 | NUR ---
MS RN OPENING NOTES RECEIVED PATIENT RESTING ON BED, A/O X1, BREATHING EVENLY AND NONLABORED ON ROOM AIR. NOT IN DISTRESS. PATIENT DOES NOT SHOW SIGNS OF PAIN AT THIS TIME. WITH G-TUBE ON NEPRO FEEDING AT 30CCML/HR, TOLERATING WELL. WITH IV ACCESS AT RIGHT UPPER ARM PICC LINE WITH IVF OF 1/2 NS AT 100ML/HR AND LEFT HAND, SALINE LOCKED. BOTH PATENT AND INTACT. SAFETY MEASURES IN PLACED. ON ASPIRATION PRECAUTION. CALL LIGHT WITHIN REACH. BED ON LOWEST, LOCKED POSITION. WILL CONTINUE TO MONITOR.
[2020-11-15 20:00] VITALS: BP 147/68
[2020-11-15] MEDS: INSULIN GLARGINE, 100 UNIT/ML CARTRIDGE SQ SCH (21:18)
[2020-11-16] MEDS: CEFAZOLIN 1 GM in IV D5W 50 ML IV SCH ×2 (01:53→13:13)
[2020-11-16] MEDS: INSULIN REGULAR, HUMAN 100 UNIT/ML 3 ML VIAL SQ PRN ×3 (05:28→17:38)
[2020-11-16] MEDS: HYDROCORTISONE SOD SUCCINATE 100 MG/2 ML VIAL IV SCH ×3 (05:41→20:54)
[2020-11-16 06:00] VITALS: BP 147/68
[2020-11-16] MEDS: BLOOD SUGAR DIAGNOSTIC 1 EACH STRIP IN SCH ×3 (06:23→17:30)
--- NOTE | 2020-11-16 06:26 | NUR ---
MS RN CLOSING NOTE PATIENT RESTING IN BED. PATIENT IS A/O X 1, RESPONDS TO TACTILE AND VERBAL STIMULI. PATIENT IS BREATHING EVENLY AND NONLABORED ON ROOM AIR. NOT IN DISTRESS. WITH NO SIGNS OF PAIN OR DISCOMFORT AT THIS TIME. ON G-TUBE FEEDING AT 30 ML/HR, TOLERATING WELL. WITH IV ACCESS AT R UPPER ARM PICC LINE WITH IVF OF 1/2 NS @ 100ML/HR AND AT LEFT HAND, SALINE LOCKED, BOTH PATENT AND INTACT. WOUND CARE PERFORMED DURING SHIFT. SAFETY MEASURES AND ASPIRATION PRECAUTIONS IN PLACED, BED ON LOWEST, LOCKED POSITION AND CALL LIGHT WITHIN REACH. WILL ENDORSE TO ONCOMING SHIFT
[2020-11-16] MEDS: IV 1/2NS 1000 ML 1,000 ML IV PRN ×2 (06:30→21:55)
--- NOTE | 2020-11-16 07:34 | NUR ---
MS RN OPENING NOTES RECEIVED PATIENT RESTING IN BED, A/O X1, ON ROOM AIR TOLERATING WELL, BREATHING EVENLY AND NONLABORED. NOT IN ANY FORM OF ACUTE DISTRESS. NO S/SX OF PAIN NOTED AT THIS TIME. WITH G-TUBE IN PLACE, ON NEPRO FEEDING AT 30CCML/HR, TOLERATING WELL, KEPT HEAD OF THE BED ELEVATED. WITH IV ACCESS AT RIGHT UPPER ARM PICC LINE WITH IVF OF 1/2 NS AT 100ML/HR AND LEFT HAND, SALINE LOCKED. BOTH PATENT, INTACT AND FLUSHES WELL. SAFETY MEASURES IN PLACED. ON ASPIRATION PRECAUTION. CALL LIGHT WITHIN REACH. BED ON LOWEST, LOCKED POSITION. WILL CONTINUE TO MONITOR ACCORDINGLY.
[2020-11-16 08:00] VITALS: BP 151/79
[2020-11-16] MEDS: CHOLECALCIFEROL (VITAMIN D 3) 400 UNIT TABLET GT SCH (08:14)
[2020-11-16] MEDS: ASCORBIC ACID 500 MG TABLET GT SCH (08:14)
[2020-11-16] MEDS: POTASSIUM CHLORIDE 20 MEQ POWDER PACKET GT SCH (08:14)
[2020-11-16] MEDS: FERROUS SULFATE UDC 300 MG/5 ML UDC GT SCH (08:15)
[2020-11-16] MEDS: FLUDROCORTISONE 0.1 MG TABLET GT SCH (08:15)
[2020-11-16] MEDS: PANTOPRAZOLE 40 MG/PACK PACK NG SCH (08:18)
[2020-11-16] MEDS: MUPIROCIN OINT 2% 22 GM TUBE NS SCH ×2 (08:21→21:05)
[2020-11-16] MEDS: ARGININE/GLUTAMINE/CALCIUM BMB 1 EACH POWD.PACK PO SCH ×2 (09:24→16:54)
[2020-11-16 10:45] LABS: BASOPHILS # (AUTO) 0.1 K/uL (0.0-0.2); BASOPHILS % (AUTO) 0.3 % (0.0-2.0); EOSINOPHILS % (AUTO) 0.1 % (0.0-6.0); HEMATOCRIT 26 % (33-45); HEMOGLOBIN 8.7 g/dL (11.5-14.8); LYMPHOCYTES # (AUTO) 1.6 K/uL (0.8-4.8); LYMPHOCYTES % (AUTO) 6.2 % (20.0-44.0); MEAN CORPUSCULAR HGB CONC 33 g/dl (31.0-36.0); MEAN CORPUSCULAR VOLUME 98 fL (82-100); MONOCYTES # (AUTO) 0.6 K/uL (0.1-1.30); MONOCYTES % (AUTO) 2.3 % (2.0-12.0); NEUTROPHILS # (AUTO) 23.7 K/uL (1.8-8.9); NEUTROPHILS % (AUTO) 91.1 % (43.0-81.0); PLATELET COUNT (AUTO) 480 K/uL (150-450); RED BLOOD CELL COUNT(AUTO) 2.67 MIL/uL (4.0-5.2)
[2020-11-16 11:04] LABS: ALBUMIN 2.1 g/dL (3.4-5.0); BILIRUBIN,TOTAL 0.2 mg/dL (0.2-1.0); CALCIUM, SERUM 7.4 mg/dL (8.5-10.1); CREATININE 2.3 mg/dL (0.6-1.3); MAGNESIUM 2.1 mg/dL (1.8-2.4); PHOSPHORUS 1.7 mg/dL (2.5-4.9); POTASSIUM 4.1 mmol/L (3.5-5.1); TOTAL PROTEIN, SERUM 5.9 g/dL (6.4-8.2)
--- NOTE | 2020-11-16 11:53 | NUR ---
RN NOTES BLOOD SUGAR CHECKED, RESULT 222 MG/DL, REGULAR INSULIN GIVEN ORDERED.
[2020-11-16] MEDS ORDERED: Sodium Phosphate 30 MMOL in IV NS 0.9% 250 ML IV SCH (12:30)
[2020-11-16 13:58] LABS: LYMPHOCYTES % (MANUAL) 7 % (16-48); MONOCYTES % (MANUAL) 3 % (0-11.0); NEUTROPHILS % (MANUAL) 90 (42-76)
[2020-11-16] MEDS: NEPRO 1,000 ML BOTTLE GT PRN (14:49)
[2020-11-16 16:00] VITALS: BP 144/94
--- NOTE | 2020-11-16 18:00 | NUR ---
RN NOTES BLOOD SUGAR CHECKED, RESULT 260, REGULAR INSULIN GIVEN ORDERED.
--- NOTE | 2020-11-16 18:23 | NUR ---
MS RN CLOSING NOTES PATIENT RESTING IN BED, A/O X1, ON ROOM AIR TOLERATING WELL, BREATHING EVENLY AND NONLABORED. NOT IN ANY FORM OF ACUTE DISTRESS. NO S/SX OF PAIN NOTED AT THIS TIME. WITH G-TUBE IN PLACE, ON NEPRO FEEDING AT 30CCML/HR, TOLERATING WELL, NO RESIDUAL NOTED, KEPT HEAD OF THE BED ELEVATED, ASPIRATION PRECAUTION OBSERVED. WITH IV ACCESS AT RIGHT UPPER ARM PICC LINE WITH IVF OF 1/2 NS AT 100ML/HR, INFUSING WELL, NO S/SX OF INFILTRATION NOTED, SALINE LOCK ON LEFT HAND, PATENT AND FLUSHES WELL. SAFETY MEASURES IN PLACED: BED ON LOWEST LOCKED POSITION, KEPT SIDE RAIL UP X 2, CALL LIGHT WITHIN EASY REACH. ALL NEEDS ATTENDED. WILL ENDORSE TO ONCOMING SHIFT FOR NEIL.
--- NOTE | 2020-11-16 19:30 | NUR ---
MS RN OPENING NOTES RECEIVED PATIENT ON BED, AWAKE, A/O X 1. ON ROOM AIR WITHOUT SHOWING SIGNS OF SOB. NOT IN DISTRESS. WITH NO SIGNS OF PAIN AT THIS TIME. WITH IV ACCESS AT RIGTH UPPER ARM PICC LINE WITH IVF OF 1/2 NS RUNNING AT 100ML/HR AND AT LEFT ARM, SALINE LOCKED. BOTH FLUSHED, PATENT AND INTACT. ON NEPRO FEEDING AT 30ML/HR VIA G-TUBE, TOLERATING WELL. KEPT HEAD OF BED ELEVATED. SAFETY MEASURES IN PLACED. CALL LIGHT WITHIN REACH. BED ON LOWEST, LOCKED POSITION, SIDE RAILS UP X 2. WILL CONTINUE TO MONITOR.
[2020-11-16 20:00] VITALS: BP_SYST 155; BP_DIAS 70; BP_DIAS 76
[2020-11-16] MEDS: INSULIN GLARGINE, 100 UNIT/ML CARTRIDGE SQ SCH (21:04)
[2020-11-17] MEDS: BLOOD SUGAR DIAGNOSTIC 1 EACH STRIP IN SCH ×4 (00:22→18:13)
[2020-11-17] MEDS: INSULIN REGULAR, HUMAN 100 UNIT/ML 3 ML VIAL SQ PRN ×5 (00:27→23:59)
[2020-11-17] MEDS: CEFAZOLIN 1 GM in IV D5W 50 ML IV SCH ×2 (01:13→13:37)
[2020-11-17] MEDS: HYDROCORTISONE SOD SUCCINATE 100 MG/2 ML VIAL IV SCH ×3 (04:50→21:25)
--- NOTE | 2020-11-17 06:38 | NUR ---
MS RN CLOSING NOTES PATIENT ON BED, AWAKE, A/O X 4, ABLE TO MAKE NEEDS KNOWN. ON ROOM AIR TOLERATING WELL WITH NO SIGNS OF ACUTE DISTRESS. WITH IV ACCESS AT LEFT AC G#20, FLUSHED, PATENT AND INTACT. WITH NO COMPLAINTS OF PAIN AT THIS TIME. NOTED. SAFETY PRECAUTIONS IN PLACED: BED ON LOWEST, LOCKED POSITION, SIDE RAILS UP X 2, CALL LIGHT WITHIN EASY REACH. ALL NEEDS ATTENDED, WILL ENDORSE TO ONCOMING SHIFT FOR NEIL.
[2020-11-17] MEDS: IV 1/2NS 1000 ML 1,000 ML IV PRN ×2 (06:50→17:45)
[2020-11-17 08:00] VITALS: BP 146/74
[2020-11-17] MEDS: ASCORBIC ACID 500 MG TABLET GT SCH (08:12)
[2020-11-17] MEDS: CHOLECALCIFEROL (VITAMIN D 3) 400 UNIT TABLET GT SCH (08:12)
[2020-11-17] MEDS: FERROUS SULFATE UDC 300 MG/5 ML UDC GT SCH (08:12)
[2020-11-17] MEDS: PANTOPRAZOLE 40 MG/PACK PACK NG SCH (08:12)
[2020-11-17] MEDS: FLUDROCORTISONE 0.1 MG TABLET GT SCH (08:12)
[2020-11-17] MEDS: POTASSIUM CHLORIDE 20 MEQ POWDER PACKET GT SCH (08:12)
[2020-11-17] MEDS: MUPIROCIN OINT 2% 22 GM TUBE NS SCH (08:20)
[2020-11-17] MEDS: ARGININE/GLUTAMINE/CALCIUM BMB 1 EACH POWD.PACK PO SCH ×2 (08:49→17:01)
[2020-11-17 09:54] LABS: BASOPHILS % (AUTO) 0.2 % (0.0-2.0); HEMATOCRIT 25 % (33-45); HEMOGLOBIN 8.4 g/dL (11.5-14.8); LYMPHOCYTES # (AUTO) 1.6 K/uL (0.8-4.8); LYMPHOCYTES % (AUTO) 6.5 % (20.0-44.0); MEAN CORPUSCULAR HGB CONC 34 g/dl (31.0-36.0); MEAN CORPUSCULAR VOLUME 98 fL (82-100); MONOCYTES # (AUTO) 0.4 K/uL (0.1-1.30); MONOCYTES % (AUTO) 1.6 % (2.0-12.0); NEUTROPHILS # (AUTO) 22.9 K/uL (1.8-8.9); NEUTROPHILS % (AUTO) 91.7 % (43.0-81.0); PLATELET COUNT (AUTO) 478 K/uL (150-450); RED BLOOD CELL COUNT(AUTO) 2.57 MIL/uL (4.0-5.2)
[2020-11-17 10:06] LABS: CALCIUM, SERUM 7.4 mg/dL (8.5-10.1); CREATININE 2.1 mg/dL (0.6-1.3); PHOSPHORUS 3.2 mg/dL (2.5-4.9); POTASSIUM 3.4 mmol/L (3.5-5.1)
[2020-11-17 11:52] LABS: LYMPHOCYTES % (MANUAL) 6 % (16-48); MONOCYTES % (MANUAL) 1 % (0-11.0); NEUTROPHILS % (MANUAL) 93 (42-76)
--- NOTE | 2020-11-17 12:00 | NUR ---
RN NOTES BLOOD SUGAR CHECKED, 259, REGULAR INSULIN GIVEN ORDERED.
[2020-11-17 16:00] VITALS: BP 156/75
--- NOTE | 2020-11-17 18:00 | NUR ---
RN NOTES BLOOD SUGAR CHECKED, 254 MG/DL, REGULAR INSULIN GIVEN ORDERED.
--- NOTE | 2020-11-17 18:31 | NUR ---
MS RN CLOSING NOTES PATIENT RESTING IN BED, A/O X1, ON ROOM AIR TOLERATING WELL, BREATHING EVEN AND UNLABORED. NOT IN ANY FORM OF ACUTE DISTRESS. NO S/SX OF PAIN NOTED AT THIS TIME. WITH G-TUBE IN PLACE, ON NEPRO FEEDING AT 30CCML/HR, TOLERATING WELL, KEPT HEAD OF THE BED ELEVATED. WITH IV ACCESS AT RIGHT UPPER ARM PICC LINE WITH IVF OF 1/2 NS AT 100ML/HR INFUSING WELL, NO S/SX OF INFILTRATION NOTED AND LEFT HAND, SALINE LOCKED. BOTH PATENT, INTACT AND FLUSHES WELL. SAFETY MEASURES IN PLACED. ON ASPIRATION PRECAUTION. CALL LIGHT WITHIN REACH. BED ON LOWEST, LOCKED POSITION. ALL NEEDS ATTENDED AND MET. WILL ENDORSE TO ONCOMING SHIFT FOR NEIL.
--- NOTE | 2020-11-17 19:30 | NUR ---
RN OPENING NOTE PATIENT IN BED, EYES OPEN. PATIENT SEEMS TO BE NON VERBAL, SOFT WRIST RESTRAINTS ON THE RIGHT WRIST. PATIENT HAS A GTUBE FEEDING NEPRO AT 30 CC/HR, GTUBE IN PLACE. NO RESIDUAL AT THIS TIME. PATIENT HAS A CARL PICC LINE RUNNING 1/2 NS AT 100 ML/HR. PATIENT CJ A L HAND IV ACCESS SALINE LOCKED. SAFETY MEASURES IN PLACE: BED LOCKED AND IN LOWEST POSITION, CALL LIGHT WITHIN REACH, SIDE RAILS UP, HOB ELEVATED. WILL MONITOR PATIENT FOR SAFETY AND BEHAVIOR.
[2020-11-17 20:00] VITALS: BP 150/79
[2020-11-17] MEDS: INSULIN GLARGINE, 100 UNIT/ML CARTRIDGE SQ SCH (21:18)
--- NOTE | 2020-11-17 22:00 | NUR ---
RN NOTE LANTUS 16 UNITS GIVEN WITH BS OF 263 MG/DL. TUBE FEEDING ON GOING.
--- NOTE | 2020-11-18 | NUR ---
RN NOTE BS 232 MG/DL, 6 UNITS REGULAR INSULIN GIVEN. TUBE FEEDING ON GOING, WILL ASSESS FOR HYPOGLYCEMIA
[2020-11-18] MEDS: NEPRO 1,000 ML BOTTLE GT PRN (00:04)
[2020-11-18] MEDS: BLOOD SUGAR DIAGNOSTIC 1 EACH STRIP IN SCH ×5 (00:13→23:10)
[2020-11-18] MEDS: CEFAZOLIN 1 GM in IV D5W 50 ML IV SCH ×2 (01:26→13:26)
[2020-11-18] MEDS: IV 1/2NS 1000 ML 1,000 ML IV PRN (03:06)
[2020-11-18] MEDS: HYDROCORTISONE SOD SUCCINATE 100 MG/2 ML VIAL IV SCH ×3 (05:23→21:24)
[2020-11-18] MEDS: INSULIN REGULAR, HUMAN 100 UNIT/ML 3 ML VIAL SQ PRN ×2 (05:31→18:19)
[2020-11-18 07:00] LABS: BASOPHILS % (AUTO) 0.1 % (0.0-2.0); HEMATOCRIT 27 % (33-45); HEMOGLOBIN 8.9 g/dL (11.5-14.8); LYMPHOCYTES % (AUTO) 8.4 % (20.0-44.0); MEAN CORPUSCULAR HGB CONC 33 g/dl (31.0-36.0); MEAN CORPUSCULAR VOLUME 99 fL (82-100); MONOCYTES # (AUTO) 0.4 K/uL (0.1-1.30); MONOCYTES % (AUTO) 1.8 % (2.0-12.0); NEUTROPHILS # (AUTO) 21.3 K/uL (1.8-8.9); NEUTROPHILS % (AUTO) 89.7 % (43.0-81.0); PLATELET COUNT (AUTO) 547 K/uL (150-450); RED BLOOD CELL COUNT(AUTO) 2.76 MIL/uL (4.0-5.2); WHITE BLOOD COUNT (AUTO) 23.8 K/uL (4.3-11.0)
--- NOTE | 2020-11-18 07:15 | NUR ---
RN NOTE PATIENT BREATHING EVEN AND UNLABORED, NOT IN ANY APPARENT DISTRESS. SAFETY MEASURES IN PLACE: ENDORSED TO DAY SHIFT NURSE FOR NEIL. BS 211, 6 UNITS OF REG INSULIN GIVEN.
--- NOTE | 2020-11-18 07:58 | NUR ---
MS/RN OPENING NOTE RECEIVED PATIENT IN BED, EYES OPEN. PATIENT IS NON VERBAL, UNABLE TO MAKE NEEDS KNOWN. SOFT WRIST RESTRAINTS ON THE RIGHT WRIST. STABLE ON ROOM AIR. NO S/S OF DISTRESS NOTED. PATIENT HAS A GTUBE FEEDING NEPRO AT 30 CC/HR, GTUBE IN PLACE. NO RESIDUAL AT THIS TIME. ON OH CATHETER DRAINING TO A CLEAR YELLOW URINE. PATIENT HAS A CARL PICC LINE RUNNING 1/2 NS AT 100 ML/HR. PATIENT HAS A L HAND IV ACCESS SALINE LOCKED. SAFETY MEASURES IN PLACE: BED LOCKED AND IN LOWEST POSITION, CALL LIGHT WITHIN REACH, SIDE RAILS UP, HOB ELEVATED. WILL MONITOR PATIENT FOR SAFETY AND BEHAVIOR.
[2020-11-18 08:00] VITALS: BP 144/79
[2020-11-18 08:21] LABS: CALCIUM, SERUM 7.8 mg/dL (8.5-10.1); PHOSPHORUS 3.2 mg/dL (2.5-4.9); POTASSIUM 3.5 mmol/L (3.5-5.1)
[2020-11-18] MEDS: FLUDROCORTISONE 0.1 MG TABLET GT SCH (09:11)
[2020-11-18] MEDS: ARGININE/GLUTAMINE/CALCIUM BMB 1 EACH POWD.PACK PO SCH ×2 (09:11→17:21)
[2020-11-18] MEDS: ASCORBIC ACID 500 MG TABLET GT SCH (09:11)
[2020-11-18] MEDS: CHOLECALCIFEROL (VITAMIN D 3) 400 UNIT TABLET GT SCH (09:11)
[2020-11-18] MEDS: POTASSIUM CHLORIDE 20 MEQ POWDER PACKET GT SCH (09:11)
[2020-11-18] MEDS: FERROUS SULFATE UDC 300 MG/5 ML UDC GT SCH (09:11)
[2020-11-18] MEDS: PANTOPRAZOLE 40 MG/PACK PACK NG SCH (09:11)
--- NOTE | 2020-11-18 10:00 | NUR ---
MS/RN [id number] CLOGGED ATTEMPTED SEVERAL TIMES TO FLUSH G-TUBE, UNSUCCESSFUL. STOPPED GTUBE FEEDING AND WILL NOTIFY .
[2020-11-18] MEDS: IV 1/2NS 1000 ML 1,000 ML IV SCH ×3 (10:22→23:19)
[2020-11-18] MEDS ORDERED: POTASSIUM CL. PREMIX PERIPHER. 50 ML IV SCH (10:30)
--- NOTE | 2020-11-18 12:40 | NUR ---
MS/RN NOTES- [facility], DID NOT ADMINISTER INSULIN DUE TO FEEDING ON HOLD FOR NOW. WILL CONTINUE TO MONITOR.
--- NOTE | 2020-11-18 12:43 | NUR ---
MS/RN NOTES- GTUBE REPLACEMENT GTUBE REPLACED BY DR. NJ NEW. 18G FR GTUBE IN PLACED.
[2020-11-18] MEDS ORDERED: DIATR MEGLU/DIATRIZOATE SODIUM 30 ML BOTTLE (GASTROGRAPHIN) ONE (13:04)
[2020-11-18 16:00] VITALS: BP 151/68
--- NOTE | 2020-11-18 17:23 | NUR ---
MS/RN NOTES- RADIOLOGY CALLED RADIOLOGY AND FOLLOWED UP WITH THE RESULT OF THE XRAY FOR GTUBE PLACEMENT. PER THE LADY, SHE WILL CALL AND NOTIFY THEIR DOCTOR TO READ RESULT.
--- NOTE | 2020-11-18 18:56 | NUR ---
MS/RN CLOSING NOTE PATIENT IN BED, EYES OPEN. PATIENT IS NON VERBAL, UNABLE TO MAKE NEEDS KNOWN. SOFT WRIST RESTRAINTS ON THE RIGHT WRIST. STABLE ON ROOM AIR. NO S/S OF DISTRESS NOTED. PATIENT HAS A GTUBE FEEDING NEPRO AT 30 CC/HR, GTUBE IN PLACE. NO RESIDUAL AT THIS TIME. ON OH CATHETER DRAINING TO A CLEAR YELLOW URINE. PATIENT HAS A CARL PICC LINE RUNNING 1/2 NS NOW AT 125 ML/HR. PATIENT HAS A L HAND IV ACCESS SALINE LOCKED. SAFETY MEASURES IN PLACE: BED LOCKED AND IN LOWEST POSITION, CALL LIGHT WITHIN REACH, SIDE RAILS UP, HOB ELEVATED. WILL ENDORSE TO THE NEXT SHIFT FOR NEIL.
--- NOTE | 2020-11-18 19:18 | NUR ---
RN NOTES RECEIVED PT RESTING IN BED, AWAKE, NON-VERBAL, OPENS EYES TO STIMULI. NO S/S OF PAIN/DISCOMFORT NOTED. RESPIRATIONS EVEN AND UNLABORED. PICC LINE ON CARL INTACT AND PATENT. G-TUBE IN PLACE AND INTACT, RESIDUALS 20CC. ON GTF NEPRO @30CC/HR. F/C DRAINING WELL WITH YELLOW-COLORED URINE. KEPT HOB ELEVATED. NOTED SOFT RESTRAINT ON R-WRIST, WITH GOOD BLOOD CIRCULATION NOTED, SKIN INTACT. SAFETY MEASURES IN PLACE, BED IN LOWEST LOCKED POSITION, S/R UP X2, CALL LIGHT WITHIN REACH. WILL CONTINUE TO MONITOR.
[2020-11-18 20:00] VITALS: BP 150/72
[2020-11-18] MEDS: INSULIN GLARGINE, 100 UNIT/ML CARTRIDGE SQ SCH (23:15)
[2020-11-19] MEDS: CEFAZOLIN 1 GM in IV D5W 50 ML IV SCH ×2 (02:01→14:09)
[2020-11-19] MEDS: HYDROCORTISONE SOD SUCCINATE 100 MG/2 ML VIAL IV SCH ×3 (05:04→20:43)
[2020-11-19] MEDS: BLOOD SUGAR DIAGNOSTIC 1 EACH STRIP IN SCH ×4 (05:07→23:09)
--- NOTE | 2020-11-19 05:15 | NUR ---
BS 274
[2020-11-19] MEDS: NEPRO 1,000 ML BOTTLE GT PRN (05:17)
[2020-11-19] MEDS: INSULIN REGULAR, HUMAN 100 UNIT/ML 3 ML VIAL SQ PRN ×4 (05:42→23:18)
[2020-11-19 06:34] LABS: BASOPHILS % (AUTO) 0.2 % (0.0-2.0); HEMATOCRIT 24 % (33-45); HEMOGLOBIN 7.8 g/dL (11.5-14.8); LYMPHOCYTES # (AUTO) 1.6 K/uL (0.8-4.8); LYMPHOCYTES % (AUTO) 9.2 % (20.0-44.0); MEAN CORPUSCULAR HGB CONC 33 g/dl (31.0-36.0); MEAN CORPUSCULAR VOLUME 98 fL (82-100); MONOCYTES # (AUTO) 0.3 K/uL (0.1-1.30); MONOCYTES % (AUTO) 1.9 % (2.0-12.0); NEUTROPHILS # (AUTO) 15.4 K/uL (1.8-8.9); NEUTROPHILS % (AUTO) 88.7 % (43.0-81.0); PLATELET COUNT (AUTO) 424 K/uL (150-450); RED BLOOD CELL COUNT(AUTO) 2.41 MIL/uL (4.0-5.2); WHITE BLOOD COUNT (AUTO) 17.4 K/uL (4.3-11.0)
--- NOTE | 2020-11-19 07:10 | NUR ---
RN CLOSING NOTES PT AWAKE, NONVERBAL, OPENS EYES TO STIMULI. NO S/S OF PAIN OR DISCOMFORT NOTED. STABLE ON ROOM AIR. IV SITE PICC LINE TO CARL INTACT WITH DRESSING C/D/I. G-TUBE INTACT AND PATENT, ON NEPRO @30CC/HR. F/C DRAINING WELL WITH YELLOW COLORED URINE. R-WRIST SOFT RESTRAINT IN PLACE AND CHECKED Q-15MIN, GOOD CIRCULATION MAINTAINED. KEPT HOB ELEVATED. PT IN NO ACUTE DISTRESS. ENDORSED TO NEXT SHIFT NURSE.
--- NOTE | 2020-11-19 07:20 | NUR ---
RN OPENING [id number]
--- NOTE | 2020-11-19 07:21 | NUR ---
RN OPENING NOTE- RECEIVED PT IN BED, EYES OPEN. PATIENT IS APHASIC, UNABLE TO MAKE NEEDS KNOWN. SOFT WRIST RESTRAINTS ON THE RIGHT WRIST. STABLE ON ROOM AIR. NO S/S OF DISTRESS NOTED. PATIENT HAS A GTUBE FEEDING NEPRO AT 30 CC/HR, GTUBE IN PLACE. NO RESIDUAL AT THIS TIME. OH CATHETER DRAINING CLEAR YELLOW URINE. PATIENT HAS A CARL PICC LINE RUNNING 1/2 NS AT 125 ML/HR. PATIENT HAS A L HAND IV ACCESS . SAFETY MEASURES IN PLACE: BED LOCKED AND IN LOWEST POSITION, CALL LIGHT WITHIN REACH, SIDE RAILS UP, HOB ELEVATED. WILL MONITOR PATIENT. ASSIST NEEDED.
[2020-11-19 08:00] VITALS: BP 151/69
[2020-11-19 08:27] LABS: CALCIUM, SERUM 7.6 mg/dL (8.5-10.1); CREATININE 1.7 mg/dL (0.6-1.3); MAGNESIUM 1.8 mg/dL (1.8-2.4); PHOSPHORUS 3.1 mg/dL (2.5-4.9); POTASSIUM 3.6 mmol/L (3.5-5.1)
[2020-11-19] MEDS: PANTOPRAZOLE 40 MG/PACK PACK NG SCH (09:08)
[2020-11-19] MEDS: POTASSIUM CHLORIDE 20 MEQ POWDER PACKET GT SCH (09:08)
[2020-11-19] MEDS: FERROUS SULFATE UDC 300 MG/5 ML UDC GT SCH (09:08)
[2020-11-19] MEDS: CHOLECALCIFEROL (VITAMIN D 3) 400 UNIT TABLET GT SCH (09:16)
[2020-11-19] MEDS: FLUDROCORTISONE 0.1 MG TABLET GT SCH (09:16)
[2020-11-19] MEDS: ASCORBIC ACID 500 MG TABLET GT SCH (09:16)
[2020-11-19] MEDS: ARGININE/GLUTAMINE/CALCIUM BMB 1 EACH POWD.PACK PO SCH ×2 (09:19→17:19)
[2020-11-19] MEDS: IV 1/2NS 1000 ML 1,000 ML IV SCH ×2 (09:33→18:18)
[2020-11-19 16:00] VITALS: BP 157/75
[2020-11-19] MEDS: MORPHINE SULFATE INJ 2 MG/ML DISP.SYRIN IV PRN (17:04)
--- NOTE | 2020-11-19 17:04 | NUR ---
RN NOTE- PT W GRIMACING AND IRRITATION. PT APPEARS TO BE UNCOMFORTABLE. HR-116. SPOKE W OTHER STAFF AND GAVE MORPHINE 1 MG IVP. MORPHINE 2 MG VIAL NOT SCANNABLE. WITNESSED W ROBERT MCCORMICK AND WASTED 1 MG APPROPRIATELY W JACE WELL.
--- NOTE | 2020-11-19 17:37 | NUR ---
RN NOTE- PT WARM, ELEVATED TEMP 98.8. TYLENOL 650 MG GIVEN VIA GT. MONITORING
--- NOTE | 2020-11-19 18:45 | NUR ---
RN NOTE- RECHECK OF VS - BP- 156/73, HR- 109, RR-18, T- 100.9, O2 SATS 98% RA. COOLING MEASURES INITIATED. RADIO STATION AUDIO ENGINEER NOTIFIED TYLENOL PREVIOUSLY GIVEN. PT W ELEVATED WBC AND ON ABX TX. MONITOR
--- NOTE | 2020-11-19 19:30 | NUR ---
RN OPENING NOTES RECEIVED PT AWAKE IN BED, NONVERBALLY RESPONSIVE. RESPIRATIONS EVEN AND UNLABORED. ON ROOM AIR AND TOLERATING WELL. PICC LINE ON CARL INTACT/PATENT, WITH DRESSING C/D/I. G-TUBE IN PLACE, PATENT, FLUSHES WELL, RESIDUALS 10CC. ON NEPRO @30CC/HR AND TOLERATING WELL, NO N/V NOTED. F/C IN PLACE, DRAINING CLEAR YELLOW URINE. R-WRIST SOFT RESTRAINT IN PLACE, WITH GOOD CIRCULATION NOTED. PT IN NO ACUTE DISTRESS. SAFETY MEASURES IN PLACE, BED IN LOWEST LOCKED POSITION, S/R UP X2, CALL LIGHT WITHIN REACH. WILL CONTINUE TO MONITOR.
[2020-11-19 20:00] VITALS: BP 142/71
[2020-11-19] MEDS: INSULIN GLARGINE, 100 UNIT/ML CARTRIDGE SQ SCH (21:33)
[2020-11-20] MEDS: CEFAZOLIN 1 GM in IV D5W 50 ML IV SCH ×2 (01:25→13:25)
[2020-11-20] MEDS: IV 1/2NS 1000 ML 1,000 ML IV SCH ×3 (01:30→17:31)
[2020-11-20] MEDS: HYDROCORTISONE SOD SUCCINATE 100 MG/2 ML VIAL IV SCH ×3 (04:39→22:24)
[2020-11-20] MEDS: NEPRO 1,000 ML BOTTLE GT PRN (04:43)
[2020-11-20] MEDS: BLOOD SUGAR DIAGNOSTIC 1 EACH STRIP IN SCH ×4 (05:29→23:35)
[2020-11-20] MEDS: INSULIN REGULAR, HUMAN 100 UNIT/ML 3 ML VIAL SQ PRN ×4 (05:31→23:38)
--- NOTE | 2020-11-20 07:27 | NUR ---
RN CLOSING NOTES PT RESTING IN BED, EASILY AROUSABLE, OPENS EYES TO STIMULI, NONVERBAL RESPONSE. NO S/S OF PAIN OR DISCOMFORT NOTED. RESPIRATIONS EVEN AND UNLABORED. ON ROOM AIR. CARL PICC LINE INTACT WITH DRESSING C/D/I, RUNNING 0.45% NS @125ML/HR. G-TUBE IN PLACE, PATENT, 10CC RESIDUALS. ON GTF NEPRO @30CC/HR AND TYRONE. WELL. F/C DRAINING YELLOW COLORED URINE. NO ACUTE DISTRESS NOTED. SAFETY MEASURES MAINTAINED, BED IN LOWEST LOCKED POSITION, S/R UP X2, CALL LIGHT WITHIN REACH. ENDORSED TO NEXT SHIFT NURSE.
--- NOTE | 2020-11-20 07:30 | NUR ---
MS RN OPENING NOTES RECEIVED PATIENT RESTING IN BED, A/O X1, ON ROOM AIR TOLERATING WELL, BREATHING EVENLY AND NONLABORED. NOT IN ANY FORM OF ACUTE DISTRESS. NO S/SX OF PAIN NOTED AT THIS TIME. WITH G-TUBE IN PLACE, ON NEPRO FEEDING AT 30CCML/HR, TOLERATING WELL, KEPT HEAD OF THE BED ELEVATED. WITH IV ACCESS AT RIGHT UPPER ARM PICC LINE WITH IVF OF 1/2 NS AT 100ML/HR PATENT, INTACT AND FLUSHES WELL. SAFETY MEASURES IN PLACED. ON ASPIRATION PRECAUTION. CALL LIGHT WITHIN REACH. BED ON LOWEST, LOCKED POSITION. WILL CONTINUE TO MONITOR ACCORDINGLY.
[2020-11-20 08:00] VITALS: BP 154/62
[2020-11-20] MEDS: FLUDROCORTISONE 0.1 MG TABLET GT SCH (08:13)
[2020-11-20] MEDS: PANTOPRAZOLE 40 MG/PACK PACK NG SCH (08:13)
[2020-11-20] MEDS: FERROUS SULFATE UDC 300 MG/5 ML UDC GT SCH (08:13)
[2020-11-20] MEDS: POTASSIUM CHLORIDE 20 MEQ POWDER PACKET GT SCH (08:13)
[2020-11-20] MEDS: CHOLECALCIFEROL (VITAMIN D 3) 400 UNIT TABLET GT SCH (08:13)
[2020-11-20] MEDS: ASCORBIC ACID 500 MG TABLET GT SCH (08:13)
[2020-11-20 08:17] VITALS: BP 154/60
[2020-11-20] MEDS: ARGININE/GLUTAMINE/CALCIUM BMB 1 EACH POWD.PACK PO SCH ×2 (08:58→16:20)
[2020-11-20 11:09] LABS: BASOPHILS # (AUTO) 0.2 K/uL (0.0-0.2); BASOPHILS % (AUTO) 0.8 % (0.0-2.0); HEMATOCRIT 30 % (33-45); HEMOGLOBIN 10.1 g/dL (11.5-14.8); LYMPHOCYTES # (AUTO) 1.3 K/uL (0.8-4.8); LYMPHOCYTES % (AUTO) 6.6 % (20.0-44.0); MEAN CORPUSCULAR HGB CONC 33 g/dl (31.0-36.0); MEAN CORPUSCULAR VOLUME 99 fL (82-100); MONOCYTES # (AUTO) 0.3 K/uL (0.1-1.30); MONOCYTES % (AUTO) 1.2 % (2.0-12.0); NEUTROPHILS # (AUTO) 18.6 K/uL (1.8-8.9); NEUTROPHILS % (AUTO) 91.4 % (43.0-81.0); PLATELET COUNT (AUTO) 424 K/uL (150-450); RED BLOOD CELL COUNT(AUTO) 3.05 MIL/uL (4.0-5.2); WHITE BLOOD COUNT (AUTO) 20.4 K/uL (4.3-11.0)
--- NOTE | 2020-11-20 12:00 | NUR ---
RN NOTES CHECKED BLOOD SUGAR, 200 MG/DL, REGULAR INSULIN GIVEN ORDERED.
[2020-11-20 16:00] VITALS: BP 153/80
[2020-11-20 16:04] VITALS: BP 153/80
--- NOTE | 2020-11-20 18:38 | NUR ---
MS RN CLOSING NOTES: PATIENT RESTING IN BED, A/O X1, ON ROOM AIR TOLERATING WELL, BREATHING EVENLY AND NONLABORED. NOT IN ANY FORM OF ACUTE DISTRESS. NO S/SX OF PAIN NOTED AT THIS TIME. WITH G-TUBE IN PLACE, ON NEPRO FEEDING AT 30CCML/HR, TOLERATING WELL, KEPT HEAD OF THE BED ELEVATED. WITH IV ACCESS AT RIGHT UPPER ARM PICC LINE WITH IVF OF 1/2 NS AT 100ML/HR PATENT, INTACT AND FLUSHES WELL. SAFETY MEASURES IN PLACED. ON ASPIRATION PRECAUTION. CALL LIGHT WITHIN REACH. BED ON LOWEST, LOCKED POSITION. WOUND CARE TREATMENT DONE. ALL NEEDS ATTENDED AND MET. WILL ENDORSE TO ONCOMING SHIFT FOR NEIL.
--- NOTE | 2020-11-20 19:40 | NUR ---
MSRN NON VERBAL FULLY AWAKE. PRESENT IVF INFUSING WELL. GT FEEDINGS WELL TOLERATED, NO RESIDUALS. KEPT COMFORTABLE, REPOSITIONED . TO CONTINUE
[2020-11-20 20:00] VITALS: BP 156/76
[2020-11-20] MEDS: INSULIN GLARGINE, 100 UNIT/ML CARTRIDGE SQ SCH (23:40)
[2020-11-21] MEDS: CEFAZOLIN 1 GM in IV D5W 50 ML IV SCH ×2 (02:29→14:01)
[2020-11-21] MEDS: IV 1/2NS 1000 ML 1,000 ML IV SCH ×2 (03:29→10:09)
[2020-11-21] MEDS: HYDROCORTISONE SOD SUCCINATE 100 MG/2 ML VIAL IV SCH ×2 (04:57→13:56)
[2020-11-21 06:17] LABS: BASOPHILS % (AUTO) 0.1 % (0.0-2.0); HEMATOCRIT 26 % (33-45); HEMOGLOBIN 8.5 g/dL (11.5-14.8); LYMPHOCYTES # (AUTO) 1.2 K/uL (0.8-4.8); LYMPHOCYTES % (AUTO) 6.8 % (20.0-44.0); MEAN CORPUSCULAR HGB CONC 33 g/dl (31.0-36.0); MEAN CORPUSCULAR VOLUME 99 fL (82-100); MONOCYTES # (AUTO) 0.4 K/uL (0.1-1.30); MONOCYTES % (AUTO) 2.3 % (2.0-12.0); NEUTROPHILS % (AUTO) 90.8 % (43.0-81.0); PLATELET COUNT (AUTO) 361 K/uL (150-450); RED BLOOD CELL COUNT(AUTO) 2.58 MIL/uL (4.0-5.2); WHITE BLOOD COUNT (AUTO) 17.6 K/uL (4.3-11.0)
--- NOTE | 2020-11-21 06:30 | NUR ---
MSRN TOTALLY BATHED, [place] FEET DRESSINGS CHANGED. REPOSITIONED FOR COMFORT. GT FEEDING TOLERATED. BS 231 WILL COVER WITH 6 UNITS OF REGULAR INSULIN. SQ.
[2020-11-21 06:41] LABS: ALBUMIN 1.9 g/dL (3.4-5.0); BILIRUBIN,TOTAL 0.1 mg/dL (0.2-1.0); CALCIUM, SERUM 7.6 mg/dL (8.5-10.1); CREATININE 1.8 mg/dL (0.6-1.3); MAGNESIUM 1.7 mg/dL (1.8-2.4); PHOSPHORUS 2.6 mg/dL (2.5-4.9); POTASSIUM 3.7 mmol/L (3.5-5.1)
[2020-11-21] MEDS: BLOOD SUGAR DIAGNOSTIC 1 EACH STRIP IN SCH ×2 (07:03→11:39)
[2020-11-21] MEDS: INSULIN REGULAR, HUMAN 100 UNIT/ML 3 ML VIAL SQ PRN ×2 (07:33→11:41)
--- NOTE | 2020-11-21 07:44 | NUR ---
MS RN OPENING NOTES RECEIVED PATIENT RESTING IN BED, A/O X1, ON ROOM AIR TOLERATING WELL, BREATHING EVENLY AND UNLABORED. NOT IN ANY FORM OF ACUTE DISTRESS. NO S/SX OF PAIN NOTED AT THIS TIME. WITH G-TUBE IN PLACE, ON NEPRO FEEDING AT 30CCML/HR, TOLERATING WELL, KEPT HEAD OF THE BED ELEVATED. WITH IV ACCESS AT RIGHT UPPER ARM PICC LINE WITH IVF OF 1/2 NS AT 100ML/HR PATENT, INTACT AND FLUSHES WELL. SAFETY MEASURES IN PLACED. ON ASPIRATION PRECAUTION. CALL LIGHT WITHIN REACH. BED ON LOWEST, LOCKED POSITION. WILL CONTINUE TO MONITOR ACCORDINGLY.
[2020-11-21 08:00] VITALS: BP 141/75
[2020-11-21 08:17] VITALS: BP 141/75
[2020-11-21] MEDS: POTASSIUM CHLORIDE 20 MEQ POWDER PACKET GT SCH (08:38)
[2020-11-21] MEDS: FLUDROCORTISONE 0.1 MG TABLET GT SCH (08:38)
[2020-11-21] MEDS: FERROUS SULFATE UDC 300 MG/5 ML UDC GT SCH (08:38)
[2020-11-21] MEDS: ASCORBIC ACID 500 MG TABLET GT SCH (08:39)
[2020-11-21] MEDS: CHOLECALCIFEROL (VITAMIN D 3) 400 UNIT TABLET GT SCH (08:39)
[2020-11-21] MEDS: PANTOPRAZOLE 40 MG/PACK PACK NG SCH (08:39)
[2020-11-21] MEDS: ARGININE/GLUTAMINE/CALCIUM BMB 1 EACH POWD.PACK PO SCH (08:41)
[2020-11-21] MEDS ORDERED: Magnesium 1GM/D5W 100ML PREMIX 100 ML IV SCH (10:00)
[2020-11-21] MEDS: NEPRO 1,000 ML BOTTLE GT PRN (10:49)
--- NOTE | 2020-11-21 15:15 | NUR ---
RN NOTES PATIENT FOR DISCHARGE TO [facility] TODAY, VEGETABLE PACKER TIME AT 4PM PER PLATEN PRESS FEEDER. REPORT WAS CALLED TO ROBERT SERRANO [phone].
[2020-11-21 16:10] VITALS: BP 155/92
--- NOTE | 2020-11-21 17:20 | NUR ---
MS FINANCIAL RESERVE CLERK NOTES DISCHARGED PATIENT IN STABLE CONDITION, VITAL SIGNS WITHIN NORMAL LIMITS. REPORT FOR DISCHARGE MEDICATIONS AND FOR NEIL GIVEN TO MAGGIE RN OF [facility]. TOTAL CARE DONE PRIOR TO DISCHARGE. IV ACCESS REMOVED ASEPTICALLY, COVERED WITH DRY GAUZE AND SECURED WITH TAPE, NO BLEEDING NOTED. WOUND CARE TREATMENT DONE. PATIENT WAS PICKED UP BY 2 MATERIALS MANAGEMENT SUPERVISOR FROM [facility], LEFT UNIT IN STABLE CONDITION. MD AND CHARGE NURSE AWARE OF DISCHARGE.
== END 2020-11-21 18:34 | DRG 720 ==
LOC: ER 16:12 → ICU 19:49 → MEDSG1 11-13 11:52 → MED 11-14 18:00
PROVIDERS: ADMIT Internal Medicine
PROC: 02HV33Z Insertion of Infusion Device into Superior Vena Cava, Percutaneous Approach (ICD-10-PCS; principal; 2020-11-09)
PROC: B548ZZA Ultrasonography of Superior Vena Cava, Guidance (ICD-10-PCS; 2020-11-09)
PROC: 0D20XUZ Change Feeding Device in Upper Intestinal Tract, External Approach (ICD-10-PCS; 2020-11-18)
DX: A41.9 Sepsis, unspecified organism (principal); N17.0 Acute kidney failure with tubular necrosis; R65.21 Severe sepsis with septic shock; E43 Unspecified severe protein-calorie malnutrition; E11.10 Type 2 diabetes mellitus with ketoacidosis without coma; J96.10 Chronic respiratory failure, unspecified whether with hypoxia or hypercapnia; G92 Toxic encephalopathy; I95.9 Hypotension, unspecified; D68.59 Other primary thrombophilia; E86.0 Dehydration; E11.22 Type 2 diabetes mellitus with diabetic chronic kidney disease; I12.9 Hypertensive chronic kidney disease with stage 1 through stage 4 chronic kidney disease, or unspecified chronic kidney disease; N18.9 Chronic kidney disease, unspecified; N39.0 Urinary tract infection, site not specified; Z20.822 Contact with and (suspected) exposure to COVID-19; D53.9 Nutritional anemia, unspecified; E78.5 Hyperlipidemia, unspecified; E87.6 Hypokalemia; R13.10 Dysphagia, unspecified; Z79.4 Long term (current) use of insulin; Z79.899 Other long term (current) drug therapy; Z79.51 Long term (current) use of inhaled steroids; E11.40 Type 2 diabetes mellitus with diabetic neuropathy, unspecified; E11.621 Type 2 diabetes mellitus with foot ulcer; L97.519 Non-pressure chronic ulcer of other part of right foot with unspecified severity; L97.529 Non-pressure chronic ulcer of other part of left foot with unspecified severity; M24.562 Contracture, left knee; M24.561 Contracture, right knee; R18.8 Other ascites; I21.A1 Myocardial infarction type 2; F03.91 Unspecified dementia, unspecified severity, with behavioral disturbance; R62.7 Adult failure to thrive; Z74.09 Other reduced mobility; L98.499 Non-pressure chronic ulcer of skin of other sites with unspecified severity; K94.23 Gastrostomy malfunction; Y83.3 Surgical operation with formation of external stoma as the cause of abnormal reaction of the patient, or of later complication, without mention of misadventure at the time of the procedure; Y82.8 Other medical devices associated with adverse incidents; Y92.9 Unspecified place or not applicable; R74.01 Elevation of levels of liver transaminase levels; Z74.01 Bed confinement status
CPT/HCPCS: 36415; 36569; 71045-TC; 74246-TC; 76770-TC; 80048-TC; 80053-TC; 80061-TC; 80076-TC; 80202-TC; 81001; 82533; 82728-TC; 82947-TC; 82962-TC; 83540-TC; 83605-TC; 83735-TC; 83880; 84100-TC; 84443-TC; 84484-TC; 85025-TC; 85378-TC; 85730-TC; 87040-TC; 87070-TC; 87081-TC; 87086-TC; 93307-TC; A4217; A6403; A6407; A9563; C9113; G0378; J0690; J0692; J1720; J1815; J2270; J2370; J2543; J3370; J3475; J3480; J3490; J7030; J7050; J7060; P9047; Q9963; U0003

== ENCOUNTER 2020-12-18 19:41 | Inpatient (IN) | payer MEDICAID ==
[~2020-12-18] VITALS: Ht 165.1 cm; Wt 59.0 kg
[~2020-12-18 19:41] MED LIST changes: +AMIN887L GT; +ASCO500C17 GT; -CHLO118L6 TP; -CHLO473M5 MM; +CHOL400T11 GT; +CLON0.5T4 PO; +CRAN3875 GT; +DOCU-141 GT; -FAMO20TA8 GT; +FERR325T23 GT; +FOLI0.8T23 GT; -HEPA50008 SQ; -LORA-259 GT; -MERO500V21 IV; +METO25TA6 GT; -MULT-447 GT; -NUT.237L67; +NUT.237L67 GT; +NUTR1PAC14 GT; -NUTR1PAC14 PO; +OMEG1600 PO; +OMEP20CA15 GT; +QUET25TA GT; -VIT500LI GT; -ZINC1CAP2 GT
--- NOTE | 2020-12-18 19:55 | NUR ---
pt bibra c/o fever and tachycardia. Pt non verbal at baseline. Pt breathing evenly and unlabored. Pt attached to monitor and pox. Pt skin warm to the touch. pt noted with both ankles wrapped and knees contracted. MD at bedside for eval. pt given call light within reach
[2020-12-18] MEDS ORDERED: IV NS 0.9% 1,000 ML BAG IV ONE (20:00)
[2020-12-18] MEDS ORDERED: CEFEPIME 1 GM in IV D5W 50 ML IV ONE (20:00)
[2020-12-18] MEDS ORDERED: VANCOMYCIN 1 GM in IV D5W 250 ML IV ONE (20:00)
[2020-12-18] MEDS ORDERED: CEFEPIME 1 GM VIAL ONE (20:04)
[2020-12-18] MEDS ORDERED: VANCOMYCIN 1 GM VIAL ONE (20:04)
[2020-12-18] MEDS: ACETAMINOPHEN SUSP 80 MG/0.8 ML BOTTLE GT ONE ×2 (20:35→21:33)
[2020-12-18] MEDS ORDERED: ACETAMINOPHEN 650 MG/20.3 ML UDC ONE (20:40)
[2020-12-18 20:42] LABS: BASOPHILS # (AUTO) 0.3 K/uL (0.0-0.2); BASOPHILS % (AUTO) 1.2 % (0.0-2.0); HEMATOCRIT 22 % (33-45); HEMOGLOBIN 7.1 g/dL (11.5-14.8); LYMPHOCYTES # (AUTO) 2.6 K/uL (0.8-4.8); LYMPHOCYTES % (AUTO) 11.5 % (20.0-44.0); MEAN CORPUSCULAR HGB CONC 32 g/dl (31.0-36.0); MEAN CORPUSCULAR VOLUME 99 fL (82-100); MONOCYTES # (AUTO) 0.8 K/uL (0.1-1.30); MONOCYTES % (AUTO) 3.6 % (2.0-12.0); NEUTROPHILS # (AUTO) 18.7 K/uL (1.8-8.9); NEUTROPHILS % (AUTO) 83.7 % (43.0-81.0); PLATELET COUNT (AUTO) 636 K/uL (150-450); RED BLOOD CELL COUNT(AUTO) 2.26 MIL/uL (4.0-5.2); WHITE BLOOD COUNT (AUTO) 22.3 K/uL (4.3-11.0)
[2020-12-18] MEDS ORDERED: ACETAMINOPHEN 650 MG/SUPP.RECT RC ONE (20:49)
--- NOTE | 2020-12-18 20:57 | NUR ---
verbal order tylennol 650mg order changed to SD.
[2020-12-18 20:59] LABS: BILIRUBIN,DIRECT 0.1 mg/dL (0.0-0.2); BILIRUBIN,TOTAL 0.2 mg/dL (0.2-1.0); CALCIUM, SERUM 10.8 mg/dL (8.5-10.1); CREATININE 3.7 mg/dL (0.6-1.3); POTASSIUM 4.8 mmol/L (3.5-5.1); TOTAL PROTEIN, SERUM 8.4 g/dL (6.4-8.2)
--- NOTE | 2020-12-18 21:05 | NUR ---
[facility] PAGED
[2020-12-18] MEDS ORDERED: MAG HYDROX/AL HYDROX/SIMETH 30 ML UDC PO PRN (21:30)
[2020-12-18] MEDS ORDERED: DEXTROSE 50%-WATER 50 ML DISP.SYRIN IV PRN (21:30)
[2020-12-18] MEDS ORDERED: LABETALOL 20 MG/4 ML VIAL IV PRN (21:30)
[2020-12-18] MEDS ORDERED: MAGNESIUM HYDROXIDE 30 ML UDC PO PRN (21:30)
[2020-12-18] MEDS ORDERED: ONDANSETRON HCL/PF 4 MG/2 ML VIAL IVP PRN (21:30)
[2020-12-18] MEDS ORDERED: ALBUTEROL FS 2.5 MG/3 ML VIAL.NEB IH PRN (21:30)
--- NOTE | 2020-12-18 21:33 | NUR ---
taken to radiology
--- NOTE | 2020-12-18 21:49 | NUR ---
urine sent to lab
[2020-12-18] MEDS ORDERED: QUETIAPINE FUMARATE 25 MG TABLET GT SCH (22:00)
[2020-12-18 22:21] LABS: BILIRUBIN,URINE Negative (NEGATIVE); COLOR,URINE YELLOW (YELLOW); LEUKOCYTE ESTERASE ,URINE Small (NEGATIVE); NITRITE, URINE Negative (NEGATIVE); PROTEIN,URINE Trace mg/dl (NEGATIVE); UGLUCOSE Negative (NEGATIVE); UROBILINOGEN,URINE 0.2 EU/dL (0.2)
[2020-12-18 22:25] LABS: BACTERIA,URINE 1+ /HPF (None Seen); SQUAMOUS EPITHELIAL CELL,UR Few /HPF (None Seen)
--- NOTE | 2020-12-18 22:34 | NUR ---
CALLED EPIC TO PAGE
--- NOTE | 2020-12-18 23:07 | NUR ---
PT WILL BE GOING TO 108 PER RN SUP
--- NOTE | 2020-12-18 23:21 | NUR ---
attempted to give report, rn with pt, will call back in 10 min
--- NOTE | 2020-12-18 23:45 | NUR ---
gave report to diana zaidi for carie
[2020-12-19] VITALS: BP 105/67
--- NOTE | 2020-12-19 | NUR ---
MAXILLOFACIAL PROSTHETICS DENTIST NOTES RECEIVED PATIENT FROM ER, ARRIVED VIA GURNEY. PATIENT AWAKE, NON-VERBAL, RESPONSIVE. BREATHING EVEN AND UNLABORED. ON ROOM AIR. O2 SAT OF 96 PERCENT. NO COUGH NOTED. SKIN WARM AND DRY TO TOUCH. AFEBRILE. SKIN ASSESSMENT DONE. NOTED WITH BILATERAL FEET, SACRAL, PERIANAL WOUNDS. SEE DOCUMENTATION. PATIENT NOTED WITH IV ACCESS ON LEFT HAND AND RIGHT FOREARM, PATENT, NO INFILTRATION NOTED. G-TUBE INTACT AND PATENT. KEPT CLEAN AND DRY, BED AT LOWEST POSITION, CALL LIGHT WITHIN REACH.
--- NOTE | 2020-12-19 00:15 | NUR ---
PROTONIX AND ACCUCHECK NON ADMINISTERED, PATIENT WAS IN ER AND ADMITTED AT 0000. SPOKE TO MEGA FROM LAB, STATED PATIENT'S BLOOD HAS ANTIBODIES AND A POSITIVE. ALSO STATED SAMPLE OF BLOOD WILL BE SENT TO [facility]. AWAITING FOR BLOOD AVAILABILITY.
[2020-12-19] MEDS ORDERED: IV 1/2NS 1000 ML 1,000 ML IV SCH (00:30)
[2020-12-19 03:18] LABS: BASOPHILS % (AUTO) 0.2 % (0.0-2.0); HEMATOCRIT 21 % (33-45); LYMPHOCYTES # (AUTO) 2.6 K/uL (0.8-4.8); LYMPHOCYTES % (AUTO) 12.9 % (20.0-44.0); MEAN CORPUSCULAR HGB CONC 31 g/dl (31.0-36.0); MEAN CORPUSCULAR VOLUME 101 fL (82-100); NEUTROPHILS # (AUTO) 16.7 K/uL (1.8-8.9); NEUTROPHILS % (AUTO) 81.9 % (43.0-81.0); PLATELET COUNT (AUTO) 504 K/uL (150-450); RED BLOOD CELL COUNT(AUTO) 2.12 MIL/uL (4.0-5.2); WHITE BLOOD COUNT (AUTO) 20.4 K/uL (4.3-11.0)
[2020-12-19 03:33] LABS: HEMOGLOBIN 6.7 g/dL (11.5-14.8)
--- NOTE | 2020-12-19 03:43 | NUR ---
STRUCTURAL MANAGER NOTES RECEIVED CALL FROM LAB, ELEN AYOUB, STATES THAT PATIENT'S HG IS 6.7. STATES THAT PATIENT HAS POSITIVE ANTIBODIES AND REQUIRES BLOOD TO BE SENT TO [facility]. STILL PENDING. INFORMED DR. EMMANUEL. AWAITING RESPONSE. PATIENT NO SOB, BP 120/52, 02 AT 98% RA, RR 18. CALL LIGHT WITHIN REACH.
[2020-12-19 03:50] LABS: ALBUMIN 2.6 g/dL (3.4-5.0); BILIRUBIN,TOTAL 0.3 mg/dL (0.2-1.0); CALCIUM, SERUM 9.3 mg/dL (8.5-10.1); CREATININE 3.3 mg/dL (0.6-1.3); MAGNESIUM 2.1 mg/dL (1.8-2.4); PHOSPHORUS 2.3 mg/dL (2.5-4.9); POTASSIUM 4.7 mmol/L (3.5-5.1); TOTAL PROTEIN, SERUM 7.2 g/dL (6.4-8.2)
[2020-12-19 04:00] VITALS: BP 120/82
--- NOTE | 2020-12-19 04:23 | NUR ---
ORTHO/PROSTHETIC AIDE NOTES NOTIFIED MD OF CRITICAL LAB RESULTS. WITH NO NEW ORDERS. ALSO NOTIFIED ABOUT BLOOD UNAVAILABILITY.
[2020-12-19 05:34] LABS: LYMPHOCYTES % (MANUAL) 13 % (16-48); MONOCYTES % (MANUAL) 6 % (0-11.0); NEUTROPHILS % (MANUAL) 81 (42-76)
--- NOTE | 2020-12-19 06:20 | NUR ---
MACHINIST MATE NOTES NO SIGNIFICANT CHANGES DURING SHIFT. PATIENT VITALS REMAIN STABLE. PATIENT NON-VERBAL, AXO1, RESPONSIVE. NO SOB NOTED, NO COUGH NOTED. CURRENTLY ON RA, WITH O2 OF 96%. SKIN IS WARM AND DRY TO TOUCH, AFBERILE. OH INTACT AND DRAINING WELL. PATIENT BEDBOUND WITH WOUNDS PRESENT ON BILATERAL FEET, PERIANAL, AND SACRUM, DRESSING CHANGED. LEFT DORSAL HAND AND RFA IV ACCESS PATENT, WITH GOOD BLOOD RETURN. BLOOD ORDER PENDING. LAB TO FOLLOW UP. KEPT CLEAN AND DRY AT ALL TIMES. CALL LIGHT WITHIN REACH. WILL ENDORSE TO NEXT SHIFT FOR CONTINUITY OF CARE.
--- NOTE | 2020-12-19 07:32 | NUR ---
RN NOTE PATIENT IS IN BED WITH HOB AT SEMI FOWLERS POSITION. PATIENT IS AOX1. PATIENT IS ON RA WITH NO SIGNS OF LABORED BREATHING. LHAND AND RFA IV ACCESS ARE PATENT AND INTACT. BED IS LOCKED IN THE LOWEST POSITION, 3 GUARD RAILS RAISED, CALL SKY WITHIN REACH, AND ALL HOSPITAL SAFETY PRECAUTIONS ARE BEING FOLLOWED. WILL CONTINUE TO MONITOR THROUGHOUT SHIFT.
[2020-12-19] MEDS: BLOOD SUGAR DIAGNOSTIC 1 EACH STRIP VI SCH ×5 (07:34→22:00)
[2020-12-19 08:00] VITALS: BP 102/54
[2020-12-19] MEDS: FERROUS SULFATE (325 MG) 325 MG/TAB TABLET GT SCH (08:41)
[2020-12-19] MEDS: METOPROLOL TARTRATE 25 MG TABLET GT SCH ×2 (08:41→16:36)
[2020-12-19] MEDS: FOLIC ACID 1 MG TABLET GT SCH (08:41)
[2020-12-19] MEDS: VIT B CMPLX 3/FA/VIT C/BIOTIN 1 TAB TABLET GT SCH (08:41)
[2020-12-19] MEDS: DOCUSATE SODIUM 100 MG CAPSULE PO SCH ×2 (08:42→16:36)
[2020-12-19] MEDS ORDERED: POTA20PA3 GT (08:42)
[2020-12-19] MEDS ORDERED: PANT40SU2 GT (08:42)
[2020-12-19] MEDS ORDERED: AMIN30LI2 GT (08:42)
[2020-12-19] MEDS ORDERED: ASCO500T10 GT (08:42)
[2020-12-19] MEDS: clonazePAM 0.5 MG TABLET PO SCH ×2 (08:42→20:21)
[2020-12-19] MEDS: CHOLECALCIFEROL (VITAMIN D 3) 400 UNIT TABLET GT SCH (08:42)
[2020-12-19] MEDS: PANTOPRAZOLE 40 MG VIAL IV SCH ×3 (08:45→16:36)
--- NOTE | 2020-12-19 08:54 | NUR ---
RN NOTE ATTEMPTED TO CONTACT DAUGHTER FOR MRCP CONSENT X3. NO ANSWER. WILL TRY AGAIN LATER.
[2020-12-19] MEDS ORDERED: VANCOMYCIN HCL 1 GM in IV D5W 260 ML IV SCH (09:00)
[2020-12-19] MEDS ORDERED: OMEPRAZOLE 20 MG CAPSULE.DR GT SCH (09:00)
--- NOTE | 2020-12-19 10:14 | NUR ---
WOUND CARE CONSULT: REVIEWED CHART, NURSING DOCUMENTATION AND PHOTOS WHICH INDICATE DISCOLORATION/SCARRING TO PERINEUM, SACRAL WOUND WITH SCARRING AND LOWER EXTREMITY WOUNDS, PRESENT ON ADMISSION. DR MEYER AND DR FRAZIER NOTIFIED OF SURGICAL AND DPM CONSULT REQUESTS. RECOMMENDATIONS MADE FOR SKIN PROTECTION. DISCUSSED WITH NURSING STAFF. MD IN AGREEMENT WITH PLAN OF CARE.
--- NOTE | 2020-12-19 10:28 | NUR ---
RN NOTE ATTEMPTED TO REACH FAMILY AGAIN FOR CONSENT FOR MRCP. NO RESPONSE.
[2020-12-19] MEDS ORDERED: Z GUARD REMEDY 2 OZ OINT TP PRN (10:30)
[2020-12-19] MEDS: Z GUARD REMEDY 2 OZ OINT TP SCH (10:31)
[2020-12-19] MEDS: INSULIN REGULAR, HUMAN 100 UNIT/ML 3 ML VIAL SQ PRN (11:31)
[2020-12-19 11:47] LABS: HEMOGLOBIN 6.5 g/dL (11.5-14.8)
--- NOTE | 2020-12-19 13:00 | NUR ---
RN NOTE ATTEMPTED TO CALL DAUGHTER X2 FOR CONSENT FOR HIDA SCAN. NO RESPONSE.
[2020-12-19 16:00] VITALS: BP 150/79
[2020-12-19] MEDS: *INSULIN REGULAR(HUMULIN R)HUM 100 UNIT/ML VIAL SQ PRN ×2 (16:54→23:18)
--- NOTE | 2020-12-19 17:00 | NUR ---
RN NOTE ATTEMPTED TO CALL DAUGHTER X2 FOR CONSENT FOR HIDA AND MRI. NO RESPONSE. DR. ISSA AWARE.
[2020-12-19] MEDS: NEPRO 1,000 ML BOTTLE GT PRN (18:10)
--- NOTE | 2020-12-19 18:47 | NUR ---
RN NOTE PATIENT IS IN BED WITH HOB AT SEMI FOWLERS POSITION. PATIENT IS AOX1. PATIENT IS ON RA WITH NO SIGNS OF LABORED BREATHING. LHAND AND RFA IV ACCESS ARE PATENT AND INTACT. BED IS LOCKED IN THE LOWEST POSITION, 3 GUARD RAILS RAISED, CALL SKY WITHIN REACH, AND ALL HOSPITAL SAFETY PRECAUTIONS ARE BEING FOLLOWED. ALL DUE ,MEDS GIVEN AND PATIENT REMAINED STABLE THROUGHOUT SHIFT.WILL ENDORSE TO HEEL REDUCER RN.
--- NOTE | 2020-12-19 19:02 | NUR ---
MS RN OPENING NOTE RECEIVED PT ALERT AND NONVERBAL AN DON ROOM AIR. PT ON G TUBE AND OH DRAINING CLEAR YELLOW URINE. SAFETY MEASURE MAINTAINED, BED IN LOWEST LOCKED POSITION, HOB ELEVATED, SIDE RAILS UP X2, CALL LIGHT AND TBALE WITHIN REACH. WILL CONTINUE TO MONITOR
[2020-12-19] MEDS: IPRATROPIUM NEB FS 0.5 MG/2.5 ML AMPUL.NEB NEB SCH (19:30)
[2020-12-19] MEDS ORDERED: VANCOMYCIN 500 MG in IV D5W 100 ML IV PRN (20:00)
--- NOTE | 2020-12-19 20:00 | NUR ---
RT NOTE HHN TX HELD DUE TO COVID-19 R/O. NO SIGNS OF RESPIRATORY DISTRESS AT THIS TIME. WILL CONTINUE TO MONITOR PATIENT.
[2020-12-19] MEDS: HYDROGEL DRESSING 90 GM TUBE TP SCH (20:16)
[2020-12-19] MEDS: CEFEPIME 1 GM in IV D5W 50 ML IV SCH (20:17)
[2020-12-19 20:42] LABS: HEMOGLOBIN 7.1 g/dL (11.5-14.8)
--- NOTE | 2020-12-19 23:18 | NUR ---
BS 212, 4 UNITS OF INSULIN ADMINISTERED AT THIS TIME PER SLIDING SCALE.
[2020-12-20] VITALS (8 sets, daily range): BP systolic 111–155; BP diastolic 50–97
--- NOTE | 2020-12-20 00:55 | NUR ---
BLOOD TRANSFUSION PT STARTED ON BLOOD TRANSFUSION AT THOS TIME PT EDUCATION PROVIDED ON RISKS AND BENEFITS OF TRANSFUSION. PT EDUCATED TO REPORT ANY ADVERSE EFFECTS OF TRANSFUSION REACTIONS SUCH SOB, CHILLS, HEADACHE FEVER, BACK PAIN, HIVES. BLOOD CONSENT VERIFIED. PRE TRANSFUSION VITAL SIGNS CHECKED, BP 126/62, HR 91, RR 18, T 98.1, SPO2 96%. BLOOD PICKED UP FROM LAB AND VERIFIED WITH PROPOSAL EDITOR, NO LEAKAGE, CLOTS, OR DISCOLORATIONS NOTED. BLOOD VERIFIED AT PT'S BEDSIDE BY TWO NURSES PRIOR TO STARTING. WILL CONTINUE TO MONITOR
--- NOTE | 2020-12-20 01:10 | NUR ---
BLOOD TRANSFUSION PT UNDERGOING BLOOD TRANSFUSION. NO ADVERSE EFFECTS SUCH SOB, CHILLS, HEADACHE, FEVER, BACK PAIN, HIVES AT THIS TIME. BP 124/63, HR 92, 02 997, TEMP 98.0. WILL CONTINUE TO MONITOR
[2020-12-20] MEDS: IPRATROPIUM NEB FS 0.5 MG/2.5 ML AMPUL.NEB NEB SCH ×4 (01:30→19:30)
--- NOTE | 2020-12-20 03:40 | NUR ---
BLOOD TRANSFUSION BLOOD TRANSFUSED AT THIS TIME. NO ADVERSE EFFECTS SUCH SOB, CHILLS, HEADACHE, FEVER, BACK PAIN, HIVES AT THIS TIME. BP 111/58, HR 56, 02 96, TEMP 98.0. WILL CONTINUE TO MONITOR
--- NOTE | 2020-12-20 06:30 | NUR ---
MS RN CLOSING NOTE PT STABLE AT THIS TIME. WILL ENDORSE TO ONCOMING NURSE
[2020-12-20 06:39] LABS: BASOPHILS # (AUTO) 0.1 K/uL (0.0-0.2); BASOPHILS % (AUTO) 0.3 % (0.0-2.0); EOSINOPHILS % (AUTO) 0.2 % (0.0-6.0); HEMATOCRIT 30 % (33-45); HEMOGLOBIN 9.5 g/dL (11.5-14.8); LYMPHOCYTES # (AUTO) 2.1 K/uL (0.8-4.8); LYMPHOCYTES % (AUTO) 9.9 % (20.0-44.0); MEAN CORPUSCULAR HGB CONC 32 g/dl (31.0-36.0); MEAN CORPUSCULAR VOLUME 96 fL (82-100); MONOCYTES # (AUTO) 0.7 K/uL (0.1-1.30); MONOCYTES % (AUTO) 3.4 % (2.0-12.0); NEUTROPHILS # (AUTO) 18.4 K/uL (1.8-8.9); NEUTROPHILS % (AUTO) 86.2 % (43.0-81.0); PLATELET COUNT (AUTO) 512 K/uL (150-450); RED BLOOD CELL COUNT(AUTO) 3.09 MIL/uL (4.0-5.2); WHITE BLOOD COUNT (AUTO) 21.3 K/uL (4.3-11.0)
[2020-12-20 07:00] LABS: CREATININE 2.7 mg/dL (0.6-1.3); POTASSIUM 4.6 mmol/L (3.5-5.1)
--- NOTE | 2020-12-20 07:42 | NUR ---
RN OPENING NOTE RECEIVED PATIENT IS ON BED. PATIENT IS ON ROOM AIR. PATIENT IN NO APPARENT RESPIRATORY DISTRESS OR SOB NOTED. NO SIGN AND SYMPTOM OF PAIN NOTED AT THIS TIME. WILL CONTINUE TO MONITOR.
[2020-12-20] MEDS: BLOOD SUGAR DIAGNOSTIC 1 EACH STRIP VI SCH ×4 (08:26→22:13)
[2020-12-20] MEDS: INSULIN REGULAR, HUMAN 100 UNIT/ML 3 ML VIAL SQ PRN ×3 (08:30→17:23)
[2020-12-20] MEDS: PANTOPRAZOLE 40 MG VIAL IV SCH ×2 (08:31→16:29)
[2020-12-20] MEDS: FOLIC ACID 1 MG TABLET GT SCH (08:32)
[2020-12-20] MEDS: VIT B CMPLX 3/FA/VIT C/BIOTIN 1 TAB TABLET GT SCH (08:32)
[2020-12-20] MEDS: clonazePAM 0.5 MG TABLET PO SCH ×2 (08:32→21:43)
[2020-12-20] MEDS: DOCUSATE SODIUM 100 MG CAPSULE PO SCH ×2 (08:32→17:18)
[2020-12-20] MEDS: METOPROLOL TARTRATE 25 MG TABLET GT SCH ×2 (08:32→16:29)
[2020-12-20] MEDS: CHOLECALCIFEROL (VITAMIN D 3) 400 UNIT TABLET GT SCH (08:32)
[2020-12-20] MEDS: FERROUS SULFATE (325 MG) 325 MG/TAB TABLET GT SCH (08:32)
[2020-12-20] MEDS: Z GUARD REMEDY 2 OZ OINT TP SCH (08:36)
[2020-12-20] MEDS: HYDROGEL DRESSING 90 GM TUBE TP SCH (08:36)
[2020-12-20] MEDS: IV 1/2NS 1000 ML 1,000 ML IV PRN ×2 (08:45→17:27)
[2020-12-20 11:48] LABS: HEMOGLOBIN 8.8 g/dL (11.5-14.8)
[2020-12-20] MEDS: MORPHINE SULFATE INJ 2 MG/ML DISP.SYRIN IV PRN (16:30)
[2020-12-20] MEDS: NEPRO 1,000 ML BOTTLE GT PRN (18:14)
--- NOTE | 2020-12-20 18:54 | NUR ---
MS/RN CLOSING NOTES PATIENT IS ON BED, NONVERBAL AND OBTUNDED. PATIENT IS ON ROOM AIR. PATIENT IN NO APPARENT RESPIRATORY DISTRESS NOTED. NO SIGN AND SYMPTOM OF PAIN NOTED AT THIS TIME. SEEN ND EXAMINED BY MD WITH ORDERS MADE AND CARRIED OUT. ALL DUE MEDICATIONS WAS GIVEN. IV ACCESS AT RIGHT AC # 20 G WITH IV FLUID OF 1/2NS1L AT 100ML/HOUR ON AND INFUSING WELL. GTUBE SITE WAS CLEAN AND DRY, GTUBE FEEDING IS RUNNING WELL WITH FEEDING OF NEPRO AT 45ML/HOUR. SAFETY PRECAUTIONS WAS IN PLACE. BED IN LOW POSITION AND LOCKED. SIDERAILS UP X2. CALL LIGHT WITHIN REACH. WILL ENDORSED TO AUTOMOTIVE PARTS MANAGER FOR NEIL.
[2020-12-20 19:24] LABS: HEMOGLOBIN 8.6 g/dL (11.5-14.8)
[2020-12-20] MEDS: CEFEPIME 1 GM in IV D5W 50 ML IV SCH (19:40)
--- NOTE | 2020-12-20 19:41 | NUR ---
RT NOTE TX NOT GIVEN DUE TO PENDING PCR RESULTS. NO RESPIRATORY DISTRESS NOTED AT THIS TIME. NURSE MAYELIN TREVINO.
[2020-12-20] MEDS: VANCOMYCIN HCL 0.75 GM in IV D5W 250 ML IV SCH (20:03)
[2020-12-20] MEDS: *INSULIN REGULAR(HUMULIN R)HUM 100 UNIT/ML VIAL SQ PRN (22:18)
[2020-12-21] MEDS: IPRATROPIUM NEB FS 0.5 MG/2.5 ML AMPUL.NEB NEB SCH ×4 (01:30→19:40)
[2020-12-21 04:00] VITALS: BP 136/74
[2020-12-21] MEDS: IV 1/2NS 1000 ML 1,000 ML IV PRN ×2 (05:27→16:53)
[2020-12-21 07:02] LABS: BASOPHILS % (AUTO) 0.2 % (0.0-2.0); HEMATOCRIT 29 % (33-45); HEMOGLOBIN 9.1 g/dL (11.5-14.8); LYMPHOCYTES # (AUTO) 2.6 K/uL (0.8-4.8); LYMPHOCYTES % (AUTO) 11.1 % (20.0-44.0); MEAN CORPUSCULAR HGB CONC 32 g/dl (31.0-36.0); MEAN CORPUSCULAR VOLUME 96 fL (82-100); MONOCYTES # (AUTO) 0.9 K/uL (0.1-1.30); NEUTROPHILS # (AUTO) 19.4 K/uL (1.8-8.9); NEUTROPHILS % (AUTO) 83.7 % (43.0-81.0); PLATELET COUNT (AUTO) 450 K/uL (150-450); RED BLOOD CELL COUNT(AUTO) 2.99 MIL/uL (4.0-5.2); WHITE BLOOD COUNT (AUTO) 23.2 K/uL (4.3-11.0)
[2020-12-21 07:40] LABS: CREATININE 2.4 mg/dL (0.6-1.3); POTASSIUM 4.1 mmol/L (3.5-5.1)
[2020-12-21] MEDS: BLOOD SUGAR DIAGNOSTIC 1 EACH STRIP VI SCH ×4 (07:49→22:00)
[2020-12-21] MEDS: INSULIN REGULAR, HUMAN 100 UNIT/ML 3 ML VIAL SQ PRN ×2 (08:08→12:39)
[2020-12-21] MEDS: PANTOPRAZOLE 40 MG VIAL IV SCH ×2 (08:08→16:55)
[2020-12-21] MEDS: DOCUSATE SODIUM 100 MG CAPSULE PO SCH ×2 (08:11→16:56)
[2020-12-21] MEDS: FERROUS SULFATE (325 MG) 325 MG/TAB TABLET GT SCH (08:11)
[2020-12-21] MEDS: FOLIC ACID 1 MG TABLET GT SCH (08:12)
[2020-12-21] MEDS: METOPROLOL TARTRATE 25 MG TABLET GT SCH ×2 (08:12→16:56)
[2020-12-21] MEDS: CHOLECALCIFEROL (VITAMIN D 3) 400 UNIT TABLET GT SCH (08:12)
[2020-12-21] MEDS: VIT B CMPLX 3/FA/VIT C/BIOTIN 1 TAB TABLET GT SCH (08:15)
[2020-12-21] MEDS: clonazePAM 0.5 MG TABLET PO SCH ×2 (08:15→21:37)
[2020-12-21] MEDS: HYDROGEL DRESSING 90 GM TUBE TP SCH (09:00)
[2020-12-21] MEDS: Z GUARD REMEDY 2 OZ OINT TP SCH (09:00)
[2020-12-21 12:00] VITALS: BP 131/60
--- NOTE | 2020-12-21 12:00 | NUR ---
RN NOTES PT FAMILY NOT PICKING UP TO GIVE CONSENT FOR HIDA SCAN
--- NOTE | 2020-12-21 14:22 | NUR ---
RN NOTES PT FAMILY NOT PICKING UP TO GIVE CONSENT FOR HIDA SCAN
[2020-12-21 20:00] VITALS: BP 142/63
[2020-12-21 20:02] LABS: HEMOGLOBIN 8.6 g/dL (11.5-14.8)
[2020-12-21] MEDS: CEFEPIME 1 GM in IV D5W 50 ML IV SCH (21:36)
[2020-12-21] MEDS: MORPHINE SULFATE INJ 2 MG/ML DISP.SYRIN IV PRN (21:38)
[2020-12-22] MEDS ORDERED: PIPERACILLIN /TAZOBACTAM 2.25 G in IV D5W 50 ML IV SCH ×2 (01:00→15:30)
[2020-12-22] MEDS: IPRATROPIUM NEB FS 0.5 MG/2.5 ML AMPUL.NEB NEB SCH ×4 (01:30→20:21)
[2020-12-22 04:00] VITALS: BP 138/67
[2020-12-22] MEDS: *INSULIN REGULAR(HUMULIN R)HUM 100 UNIT/ML VIAL SQ PRN ×2 (05:41→21:44)
[2020-12-22 06:51] LABS: BASOPHILS % (AUTO) 0.2 % (0.0-2.0); EOSINOPHILS % (AUTO) 0.8 % (0.0-6.0); HEMATOCRIT 29 % (33-45); HEMOGLOBIN 8.9 g/dL (11.5-14.8); LYMPHOCYTES # (AUTO) 2.3 K/uL (0.8-4.8); LYMPHOCYTES % (AUTO) 10.6 % (20.0-44.0); MEAN CORPUSCULAR HGB CONC 31 g/dl (31.0-36.0); MEAN CORPUSCULAR VOLUME 97 fL (82-100); MONOCYTES # (AUTO) 0.6 K/uL (0.1-1.30); MONOCYTES % (AUTO) 2.8 % (2.0-12.0); NEUTROPHILS # (AUTO) 18.6 K/uL (1.8-8.9); NEUTROPHILS % (AUTO) 85.6 % (43.0-81.0); PLATELET COUNT (AUTO) 462 K/uL (150-450); RED BLOOD CELL COUNT(AUTO) 2.95 MIL/uL (4.0-5.2); WHITE BLOOD COUNT (AUTO) 21.7 K/uL (4.3-11.0)
[2020-12-22 07:22] LABS: CREATININE 2.2 mg/dL (0.6-1.3); POTASSIUM 4.8 mmol/L (3.5-5.1)
--- NOTE | 2020-12-22 07:34 | NUR ---
MS RN OPENING NOTES RECEIVED PATIENT IN BED, ASLEEP. PATIENT ON ROOM AIR, BREATHING EVEN AND UNLABORED AT THIS TIME. NO SOB NOTED. NO S/S OF PAIN SUCH FACIAL GRIMACING, MOANING OR GUARDING PRESENT. LAC IV ACCESS PRESENT AND RUNNING D5 1/2 NS @ 100 MLS/HR. G-TUBE IN PLACE INFUSING NEPRO @ 45 MLS/HR. OH CATH IN PLACE. SAFETY PRECAUTIONS IN PLACE; BED IN LOW POSITION AND LOCKED, RAILS UP X2, CALL LIGHT WITHIN REACH. WILL CONTINUE TO MONITOR PATIENT.
[2020-12-22] MEDS: BLOOD SUGAR DIAGNOSTIC 1 EACH STRIP VI SCH ×4 (07:59→21:38)
[2020-12-22] MEDS: FOLIC ACID 1 MG TABLET GT SCH (08:32)
[2020-12-22] MEDS: DOCUSATE SODIUM 100 MG CAPSULE PO SCH ×2 (08:32→16:36)
[2020-12-22] MEDS: clonazePAM 0.5 MG TABLET PO SCH ×2 (08:32→21:18)
[2020-12-22] MEDS: VIT B CMPLX 3/FA/VIT C/BIOTIN 1 TAB TABLET GT SCH (08:32)
[2020-12-22] MEDS: FERROUS SULFATE (325 MG) 325 MG/TAB TABLET GT SCH (08:33)
[2020-12-22] MEDS: PANTOPRAZOLE 40 MG VIAL IV SCH (08:33)
[2020-12-22] MEDS: CHOLECALCIFEROL (VITAMIN D 3) 400 UNIT TABLET GT SCH (08:33)
[2020-12-22] MEDS: METOPROLOL TARTRATE 25 MG TABLET GT SCH ×2 (08:33→16:37)
[2020-12-22] MEDS: HYDROGEL DRESSING 90 GM TUBE TP SCH (08:37)
[2020-12-22] MEDS: Z GUARD REMEDY 2 OZ OINT TP SCH (08:37)
[2020-12-22] MEDS: INSULIN REGULAR, HUMAN 100 UNIT/ML 3 ML VIAL SQ PRN ×3 (08:37→17:50)
--- NOTE | 2020-12-22 11:02 | NUR ---
MS RN NOTES TRIED CALLING PATIENT DAUGHTER TO GET CONSENT FOR HIDA. NO ONE ANSWERED. UNABLE TO LEAVE A VOICEMAIL DUE TO VOICEMAIL BEING FULL.
[2020-12-22 11:46] LABS: HEMOGLOBIN 8.5 g/dL (11.5-14.8)
[2020-12-22 12:08] VITALS: BP 110/74
--- NOTE | 2020-12-22 14:20 | NUR ---
MS RN NOTES TRIED CALLING PATIENT DAUGHTER AGAIN TO GET CONSENT FOR HIDA. NO ONE ANSWERED. UNABLE TO LEAVE A VOICEMAIL DUE TO VOICEMAIL BEING FULL.
[2020-12-22] MEDS: IV 1/2NS 1000 ML 1,000 ML IV PRN (15:23)
[2020-12-22] MEDS: PANTOPRAZOLE 40 MG/PACK PACK GT SCH (16:36)
--- NOTE | 2020-12-22 18:31 | NUR ---
MS COAL SHOOTER NOTES PATIENT TRANSFERRED TO 3W. REPORT GIVEN TO ROBERT PARIS.
[2020-12-22] MEDS: VANCOMYCIN HCL 0.75 GM in IV D5W 250 ML IV SCH (19:33)
[2020-12-22 20:00] VITALS: BP 145/68
--- NOTE | 2020-12-22 20:01 | NUR ---
MS RN OPENING NOTES RECEIVED PT IN BED. PT IS NON-VERBAL. ON ROOM AIR AND TOLERATING WELL. NO SOB NOTED. NO S/SX OF RESPIRATORY DISTRESS NOTED. IV ACCESS IN LAC #20G RUNNING 1/2 NS @ 100 ML/HR. NO PAIN NOTED VIA FLACC SCALE. NEPRO RUNNING AT 45 ML/HR. SAFETY PRECAUTIONS IN PLACE: BRAKES ON, HOB UP, BED IN LOWEST, LOCKED POSITION, SIDERAILS UPx2. TABLE AND CALL LIGHT WITHIN REACH. WILL CONTINUE TO MONITOR.
[2020-12-22 20:20] LABS: HEMOGLOBIN 8.2 g/dL (11.5-14.8)
[2020-12-23] MEDS: PIPERACILLIN /TAZOBACTAM 2.25 G in IV D5W 50 ML IV SCH ×3 (00:14→17:09)
[2020-12-23] MEDS: IPRATROPIUM NEB FS 0.5 MG/2.5 ML AMPUL.NEB NEB SCH ×4 (01:30→19:53)
[2020-12-23] MEDS: NEPRO 1,000 ML BOTTLE GT PRN (03:48)
[2020-12-23] MEDS: IV 1/2NS 1000 ML 1,000 ML IV PRN ×2 (03:48→14:43)
[2020-12-23] MEDS: BLOOD SUGAR DIAGNOSTIC 1 EACH STRIP VI SCH ×4 (05:53→21:32)
[2020-12-23] MEDS: INSULIN REGULAR, HUMAN 100 UNIT/ML 3 ML VIAL SQ PRN ×4 (05:55→21:32)
--- NOTE | 2020-12-23 06:34 | NUR ---
MS RN CLOSING NOTES PT IN BED. PT IS NON-VERBAL. ON ROOM AIR AND TOLERATING WELL. NO SOB NOTED. NO S/SX OF RESPIRATORY DISTRESS NOTED. IV ACCESS IN LAC #20G RUNNING 1/2 NS @ 100 ML/HR. NO PAIN NOTED VIA FLACC SCALE THROUGHOUT SHIFT. NEPRO RUNNING AT 45 ML/HR. ALL NEEDS MET. PT KEPT CLEAN AND DRY. SAFETY PRECAUTIONS IN PLACE: BRAKES ON, HOB UP, BED IN LOWEST, LOCKED POSITION, SIDERAILS UPx2. TABLE AND CALL LIGHT WITHIN REACH. WILL ENDORSE TO ONCOMING SHIFT.
[2020-12-23 06:57] LABS: BASOPHILS % (AUTO) 0.1 % (0.0-2.0); EOSINOPHILS % (AUTO) 1.4 % (0.0-6.0); HEMATOCRIT 24 % (33-45); HEMOGLOBIN 7.8 g/dL (11.5-14.8); LYMPHOCYTES # (AUTO) 1.7 K/uL (0.8-4.8); LYMPHOCYTES % (AUTO) 7.9 % (20.0-44.0); MEAN CORPUSCULAR HGB CONC 33 g/dl (31.0-36.0); MEAN CORPUSCULAR VOLUME 97 fL (82-100); MONOCYTES # (AUTO) 0.5 K/uL (0.1-1.30); MONOCYTES % (AUTO) 2.4 % (2.0-12.0); NEUTROPHILS # (AUTO) 19.3 K/uL (1.8-8.9); NEUTROPHILS % (AUTO) 88.2 % (43.0-81.0); PLATELET COUNT (AUTO) 419 K/uL (150-450); RED BLOOD CELL COUNT(AUTO) 2.45 MIL/uL (4.0-5.2); WHITE BLOOD COUNT (AUTO) 21.8 K/uL (4.3-11.0)
[2020-12-23 07:15] LABS: CALCIUM, SERUM 8.5 mg/dL (8.5-10.1); POTASSIUM 3.2 mmol/L (3.5-5.1)
--- NOTE | 2020-12-23 07:55 | NUR ---
RN OPENING NOTE RECEIVED PATIENT IS ON BED. PATIENT IS ON ROOM AIR. PATIENT IN NO APPARENT RESPIRATORY DISTRESS OR SOB NOTED. NO SIGN AND SYMPTOM OF PAIN NOTED AT THIS TIME. PATIENT TEMP 101.3. WILL CONTINUE TO MONITOR.MS/
[2020-12-23 08:00] VITALS: BP 145/78
[2020-12-23] MEDS: POTASSIUM CL. PREMIX PERIPHER. 50 ML IV SCH ×8 (09:00→14:44)
--- NOTE | 2020-12-23 09:00 | NUR ---
MS/RN NOTES TYLENOL SUPPOSITORY WAS GIVEN AND COOLING MEASURE WAS INITIATED. WILL CONTINUE TO MONITOR.
[2020-12-23] MEDS: CHOLECALCIFEROL (VITAMIN D 3) 400 UNIT TABLET GT SCH (09:22)
[2020-12-23] MEDS: DOCUSATE SODIUM 100 MG CAPSULE PO SCH (09:22)
[2020-12-23] MEDS: FOLIC ACID 1 MG TABLET GT SCH (09:22)
[2020-12-23] MEDS: FERROUS SULFATE (325 MG) 325 MG/TAB TABLET GT SCH (09:22)
[2020-12-23] MEDS: VIT B CMPLX 3/FA/VIT C/BIOTIN 1 TAB TABLET GT SCH (09:23)
[2020-12-23] MEDS: METOPROLOL TARTRATE 25 MG TABLET GT SCH ×2 (09:23→17:11)
[2020-12-23] MEDS: PANTOPRAZOLE 40 MG/PACK PACK GT SCH ×2 (09:23→17:11)
[2020-12-23] MEDS: ACETAMINOPHEN 650 MG/SUPP.RECT RC PRN (09:23)
[2020-12-23] MEDS: clonazePAM 0.5 MG TABLET PO SCH ×2 (09:23→20:22)
[2020-12-23] MEDS: HYDROGEL DRESSING 90 GM TUBE TP SCH (09:56)
[2020-12-23] MEDS: Z GUARD REMEDY 2 OZ OINT TP SCH (09:57)
--- NOTE | 2020-12-23 10:32 | NUR ---
MS/RN NOTES POTASSIUM 40MG IV WAS DUPLICATE.
[2020-12-23 11:16] LABS: HEMOGLOBIN 7.9 g/dL (11.5-14.8)
[2020-12-23] MEDS: MORPHINE SULFATE INJ 2 MG/ML DISP.SYRIN IV PRN (15:41)
[2020-12-23] MEDS: DOCUSATE SODIUM LIQ 100 MG/10 ML UDC GT SCH (17:10)
[2020-12-23 18:00] VITALS: BP 134/65
--- NOTE | 2020-12-23 19:12 | NUR ---
MS/RN CLOSING NOTES PATIENT IS ON BED, NONVERBAL AND OBTUNDED. PATIENT IS ON ROOM AIR. PATIENT IN NO APPARENT RESPIRATORY DISTRESS NOTED. NO SIGN AND SYMPTOM OF PAIN NOTED AT THIS TIME. SEEN ND EXAMINED BY MD WITH ORDERS MADE AND CARRIED OUT. ALL DUE MEDICATIONS WAS GIVEN. IV ACCESS AT RIGHT AC # 20 G WITH IV FLUID OF 1/2NS1L AT 100ML/HOUR ON AND INFUSING WELL. GTUBE SITE WAS CLEAN AND DRY, GTUBE FEEDING IS RUNNING WELL WITH FEEDING OF NEPRO AT 45ML/HOUR. SAFETY PRECAUTIONS WAS IN PLACE. BED IN LOW POSITION AND LOCKED. SIDERAILS UP X2. CALL LIGHT WITHIN REACH. WILL ENDORSED TO RECONSTRUCTIVE SURGEON FOR NEIL.
[2020-12-23 20:00] VITALS: BP 137/98
[2020-12-23 20:07] LABS: HEMOGLOBIN 7.6 g/dL (11.5-14.8)
[2020-12-23] MEDS: ACETAMINOPHEN 325 MG TABLET PO PRN (20:22)
--- NOTE | 2020-12-23 21:22 | NUR ---
Patient's temperature recheck 1 hour after giving PRN tylenol. now 101.1. Further cooling measures initiated.
--- NOTE | 2020-12-23 21:35 | NUR ---
called daughter johana for consent -did not answer unable to leave message. Called son Janes at [phone] no answer left message to call back floor.
[2020-12-24] MEDS: IPRATROPIUM NEB FS 0.5 MG/2.5 ML AMPUL.NEB NEB SCH ×4 (00:45→19:35)
[2020-12-24] MEDS: PIPERACILLIN /TAZOBACTAM 2.25 G in IV D5W 50 ML IV SCH ×3 (01:25→17:24)
[2020-12-24] MEDS: IV 1/2NS 1000 ML 1,000 ML IV PRN (01:33)
--- NOTE | 2020-12-24 02:35 | NUR ---
Patient sleeping but appeared SOB breathing 34 breaths per minute. had received breathing treatment 45 minutes prior. O2 sat continuously staying above 97%. Patient does NOT sound congested. mental status at baseline. Alert to noise and light touch, opening eyes, moving head but non-verbal. Other VSS. 155/69, pulse 104, temp 99.3. Notified MD on-call only order is to give the PRN tylenol.
--- NOTE | 2020-12-24 05:20 | NUR ---
fever resolved 97.7
[2020-12-24] MEDS: NEPRO 1,000 ML BOTTLE GT PRN (05:49)
[2020-12-24] MEDS: INSULIN REGULAR, HUMAN 100 UNIT/ML 3 ML VIAL SQ PRN ×3 (06:53→17:43)
--- NOTE | 2020-12-24 06:57 | NUR ---
patient fully awake, alert eyes open fidgeting in bed RR now 24 breaths per minute. no distress noted. fever had resolved. no adverse side effects from IV ABX. Tolerating TF well. residual only 40cc. No signs of hypo or hyperglycemic reactions noted. wound care done. turned q2h, kept clean and dry. bony prominences with mepilex and offloading.
[2020-12-24] MEDS: BLOOD SUGAR DIAGNOSTIC 1 EACH STRIP VI SCH ×4 (06:59→21:07)
[2020-12-24 07:32] LABS: BASOPHILS # (AUTO) 0.1 K/uL (0.0-0.2); BASOPHILS % (AUTO) 0.5 % (0.0-2.0); EOSINOPHILS % (AUTO) 0.9 % (0.0-6.0); HEMATOCRIT 25 % (33-45); HEMOGLOBIN 7.9 g/dL (11.5-14.8); LYMPHOCYTES # (AUTO) 1.7 K/uL (0.8-4.8); LYMPHOCYTES % (AUTO) 9.4 % (20.0-44.0); MEAN CORPUSCULAR HGB CONC 31 g/dl (31.0-36.0); MEAN CORPUSCULAR VOLUME 99 fL (82-100); MONOCYTES # (AUTO) 0.8 K/uL (0.1-1.30); MONOCYTES % (AUTO) 4.2 % (2.0-12.0); NEUTROPHILS # (AUTO) 15.8 K/uL (1.8-8.9); PLATELET COUNT (AUTO) 351 K/uL (150-450); RED BLOOD CELL COUNT(AUTO) 2.57 MIL/uL (4.0-5.2); WHITE BLOOD COUNT (AUTO) 18.6 K/uL (4.3-11.0)
[2020-12-24] MEDS: PANTOPRAZOLE 40 MG/PACK PACK GT SCH ×2 (08:24→17:21)
[2020-12-24] MEDS: VIT B CMPLX 3/FA/VIT C/BIOTIN 1 TAB TABLET GT SCH (08:24)
[2020-12-24] MEDS: clonazePAM 0.5 MG TABLET PO SCH ×2 (08:24→21:07)
[2020-12-24] MEDS: CHOLECALCIFEROL (VITAMIN D 3) 400 UNIT TABLET GT SCH (08:24)
[2020-12-24] MEDS: FERROUS SULFATE (325 MG) 325 MG/TAB TABLET GT SCH (08:24)
[2020-12-24] MEDS: FOLIC ACID 1 MG TABLET GT SCH (08:24)
[2020-12-24] MEDS: DOCUSATE SODIUM LIQ 100 MG/10 ML UDC GT SCH ×2 (08:24→17:21)
[2020-12-24] MEDS: Z GUARD REMEDY 2 OZ OINT TP SCH (08:25)
[2020-12-24] MEDS: HYDROGEL DRESSING 90 GM TUBE TP SCH (08:26)
[2020-12-24] MEDS: METOPROLOL TARTRATE 25 MG TABLET GT SCH ×2 (08:26→17:22)
[2020-12-24 08:30] VITALS: BP 150/76
[2020-12-24 08:55] LABS: CALCIUM, SERUM 8.5 mg/dL (8.5-10.1); POTASSIUM 4.5 mmol/L (3.5-5.1)
[2020-12-24 11:27] LABS: HEMOGLOBIN 7.9 g/dL (11.5-14.8)
[2020-12-24] MEDS: ACETAMINOPHEN 325 MG TABLET PO PRN (11:46)
[2020-12-24] MEDS: MORPHINE SULFATE INJ 2 MG/ML DISP.SYRIN IV PRN (13:29)
--- NOTE | 2020-12-24 13:50 | NUR ---
RN NOTES BEDSIDE ENDORSEMENT DONE AND REPORT GIVEN TO ROBERT WILSON, FOR NEIL.
--- NOTE | 2020-12-24 13:53 | NUR ---
RN NOTE Received report from Oliver JONES for continuation of care.
[2020-12-24 16:40] VITALS: BP 123/70
--- NOTE | 2020-12-24 19:00 | NUR ---
RN CLOSING NOTES Patient is Alert to stimuli, no respiratory distress, no SOB. Enteral feeding running 45cc/hr. Right hand IV hydration 1/2 NS 100cc/hr. No s/sx of hyperglycemia/hypoglycemia. Wound care rendered. F/C intact draining well. Safety precautions implemented, bed locked in lowest position, call light within reach.
--- NOTE | 2020-12-24 19:30 | NUR ---
RN OPENING NOTE PATIENT IN BED, OPENS EYES, PATIENT IS NON VERBAL. BREATHING EVEN AND UNLABORED, NO SOB NOTED. PATIENT HAS A OH CATHETER IN PLACE, INTACT. PATIENT HAS A G TUBE WITH NEPRO AT 45 ML.HR. R HAND 18 G RUNNING NS @100 ML/HR. SAFETY MEASURES IN PLACE: BED LOCKED AND IN LOWEST POSITION, CALL LIGHT WITHIN REACH. WILL MONITOR PATIENT CLOSELY.
[2020-12-24 19:47] LABS: HEMOGLOBIN 8.1 g/dL (11.5-14.8)
[2020-12-24] MEDS: VANCOMYCIN HCL 0.75 GM in IV D5W 250 ML IV SCH (19:52)
[2020-12-24 20:31] VITALS: BP 114/66
[2020-12-24] MEDS: *INSULIN REGULAR(HUMULIN R)HUM 100 UNIT/ML VIAL SQ PRN (21:22)
--- NOTE | 2020-12-24 21:25 | NUR ---
RN NOTE BS 264 MG/DL. 6 UNITS REGULAR INSULIN GIVEN FOR COVERAGE. WILL MONITOR FOR HYPOGLYCEMIA.
[2020-12-25] MEDS: PIPERACILLIN /TAZOBACTAM 2.25 G in IV D5W 50 ML IV SCH ×3 (01:10→17:33)
[2020-12-25] MEDS: IV 1/2NS 1000 ML 1,000 ML IV PRN (01:13)
[2020-12-25] MEDS: IPRATROPIUM NEB FS 0.5 MG/2.5 ML AMPUL.NEB NEB SCH ×4 (01:43→20:04)
[2020-12-25 03:35] LABS: BASOPHILS # (AUTO) 0.1 K/uL (0.0-0.2); BASOPHILS % (AUTO) 0.3 % (0.0-2.0); EOSINOPHILS % (AUTO) 0.4 % (0.0-6.0); HEMATOCRIT 25 % (33-45); HEMOGLOBIN 7.8 g/dL (11.5-14.8); LYMPHOCYTES # (AUTO) 1.5 K/uL (0.8-4.8); LYMPHOCYTES % (AUTO) 7.1 % (20.0-44.0); MEAN CORPUSCULAR HGB CONC 32 g/dl (31.0-36.0); MEAN CORPUSCULAR VOLUME 95 fL (82-100); MONOCYTES # (AUTO) 0.9 K/uL (0.1-1.30); MONOCYTES % (AUTO) 4.4 % (2.0-12.0); NEUTROPHILS # (AUTO) 18.6 K/uL (1.8-8.9); NEUTROPHILS % (AUTO) 87.8 % (43.0-81.0); PLATELET COUNT (AUTO) 352 K/uL (150-450); RED BLOOD CELL COUNT(AUTO) 2.59 MIL/uL (4.0-5.2); WHITE BLOOD COUNT (AUTO) 21.1 K/uL (4.3-11.0)
[2020-12-25 04:03] LABS: CALCIUM, SERUM 8.4 mg/dL (8.5-10.1); POTASSIUM 4.7 mmol/L (3.5-5.1)
[2020-12-25] MEDS: INSULIN REGULAR, HUMAN 100 UNIT/ML 3 ML VIAL SQ PRN ×3 (04:40→18:15)
--- NOTE | 2020-12-25 04:40 | NUR ---
LAB CALLED IN BS OF 389 MG/DL. WILL ADMINISTER 15 UNITS OF REGULAR INSULIN PER AC SLIDING SCALE, CHARGE NURSE AWARE. WILL MONITOR PATIENT FOR ANY HYPOGLYCEMIA.
[2020-12-25] MEDS: BLOOD SUGAR DIAGNOSTIC 1 EACH STRIP VI SCH ×4 (06:32→21:10)
[2020-12-25] MEDS: ACETAMINOPHEN 325 MG TABLET PO PRN ×2 (06:41→17:29)
--- NOTE | 2020-12-25 06:53 | NUR ---
bs 309 mg/dl 12 units given, tylenol given for 101.2 temp. cooling measures initiated.
--- NOTE | 2020-12-25 07:00 | NUR ---
RN CLOSING NOTE PATIENT IN BED, EYES OPEN, MILDLY RESTLESS. PATIENT STILL HAS SOB, TEMP TO BE RECHECKED ONE HOUR AFTER TYLENOL ADMIN AND COOLING MEASURES. GTUBE OFF AT 0100 AND ON AT 0500. G TUBE PATENT AND INTACT, WITH NEPRO GOING AT 45 ML/HR. OH CATH DRAINING CLEAR URINE. IV ACCESS INTACT, IVF ON GOING. SAFETY MEASURES MAINTAINED. ALL ORDERS CARRIED OUT. ALL NEEDS MET AND ATTENDED. WILL ENDORSE TO DAY SHIFT NURSE FOR NEIL. Addendum: 12/25/20 at 0740 by BRITTANY NGUYEN RN NOTIFIED ASA GONCALVES OF FEVER AND SOB. AWAITING RESPONSE. Addendum: 12/25/20 at 0740 by BRITTANY NGUYEN RN WOUND CARE RENDERED.
[2020-12-25 08:00] VITALS: BP 155/75
--- NOTE | 2020-12-25 08:00 | NUR ---
RN OPENING NOTE PT AWAKE IN BED RESTING. ON RA WITH NO SOB OR RESPIRATORY DISTRESS PRESENT. A/O X1 AND NONVERBAL. NO COMPLAINT OF PAIN OR NAUSEA. ON BEDREST WITH DIAPER PRESENT. NO EDEMA PRESENT. NO MOLD ENGRAVER. SKIN ISSUES PRESENT, PICTURES IN CHART, WOUND CARE ORDERED. F/C PRESENT AND DRAINS WELL. G/T PRESENT WITH NEPHRO RUNNING AT 45 ML/HR. IV PRESENT ON R HAND AND FLUSHES WELL. NS RUNNING AT 100 ML/HR. LABS AND ORDERS REVIEWED. SAFETY MEASURES IN PLACE. SIDE RAILS RAISED. BED LOWERED. CALL LIGHT WITHIN REACH. WILL CONTINUE TO MONITOR.
[2020-12-25] MEDS: FERROUS SULFATE (325 MG) 325 MG/TAB TABLET GT SCH (09:42)
[2020-12-25] MEDS: METOPROLOL TARTRATE 25 MG TABLET GT SCH ×2 (09:42→17:30)
[2020-12-25] MEDS: CHOLECALCIFEROL (VITAMIN D 3) 400 UNIT TABLET GT SCH (09:42)
[2020-12-25] MEDS: FOLIC ACID 1 MG TABLET GT SCH (09:42)
[2020-12-25] MEDS: clonazePAM 0.5 MG TABLET PO SCH ×2 (09:42→21:10)
[2020-12-25] MEDS: DOCUSATE SODIUM LIQ 100 MG/10 ML UDC GT SCH ×2 (09:42→17:29)
[2020-12-25] MEDS: VIT B CMPLX 3/FA/VIT C/BIOTIN 1 TAB TABLET GT SCH (09:42)
[2020-12-25] MEDS: PANTOPRAZOLE 40 MG/PACK PACK GT SCH ×2 (09:43→17:29)
[2020-12-25] MEDS: HYDROGEL DRESSING 90 GM TUBE TP SCH (09:45)
[2020-12-25] MEDS: Z GUARD REMEDY 2 OZ OINT TP SCH (09:45)
--- NOTE | 2020-12-25 12:00 | NUR ---
RN NOTE CALLED PT'S ORIGINAL FACILITY TO CONTACT FAMILY FOR CONSENT FOR PROCEDURES. FAMILY DID NOT RESPOND TO CALL. LEFT CALLBACK NUMBER WITH FACILITY FOR UPDATES FROM CONTACTING FAMILY.
[2020-12-25] MEDS: *INSULIN REGULAR(HUMULIN R)HUM 100 UNIT/ML VIAL SQ PRN ×2 (12:29→21:26)
--- NOTE | 2020-12-25 13:50 | NUR ---
SS note SS contacted pt's daughter, Jennifer Toribio, , for consent. ERWIN left Jennifer a voicemail. ROBERT Burroughs notified ERWIN that kennel staff member have made attempts to contact pt's family. SS will remain available as needed.
[2020-12-25 16:00] VITALS: BP 127/57
--- NOTE | 2020-12-25 17:49 | NUR ---
RN CLOSING NOTE PT AWAKE IN BED RESTING. ON RA WITH NO SOB OR RESPIRATORY DISTRESS PRESENT. A/O X1 AND NONVERBAL. NO COMPLAINT OF PAIN OR NAUSEA. ON BEDREST WITH DIAPER PRESENT. NO EDEMA PRESENT. NO FINE JEWELRY SALES ASSOCIATE. SKIN ISSUES PRESENT, PICTURES IN CHART, WOUND CARE ORDERED. F/C PRESENT AND DRAINS WELL. G/T PRESENT WITH NEPHRO RUNNING AT 45 ML/HR. IV PRESENT ON R HAND AND FLUSHES WELL. NS RUNNING AT 100 ML/HR. LABS AND ORDERS REVIEWED. SAFETY MEASURES IN PLACE. SIDE RAILS RAISED. BED LOWERED. CALL LIGHT WITHIN REACH. WILL GIVE REPORT TO NIGHT NURSE FOR NEIL.
--- NOTE | 2020-12-25 19:15 | NUR ---
RN OPENING NOTE PATIENT IN BED, EYES CLOSED, PATIENT TOLERATING ROOM AIR, MILD SOB OBSERVED. OPENS EYES, NON VERBAL. PATIENT RECENTLY GIVEN TYLENOL FOR FEVER. PATIENT HAS OH CATH ON DRAINING YELLOW URINE. R HAND IV ACCESS PATENT AND INTACT, IVF ONGOING. SAFETY MEASURES IN PLACE: BED LOCKED AND IN LOWEST POSITION, CALL LIGHT WITHIN REACH SIDE RAILS UP. WILL MONITOR PATIENT CLOSELY.
[2020-12-25 19:31] LABS: HEMOGLOBIN 6.6 g/dL (11.5-14.8)
[2020-12-25 20:00] VITALS: BP 135/55
--- NOTE | 2020-12-25 20:00 | NUR ---
lab called in hgb 6.6 and hct 20. notified to transfuse 1 unit. family unreachable at this time. Lynn GONCALVES states she will sign consent patient running a fever 100.0. tylenol suppository will be given. cooling measures maintained.
[2020-12-25] MEDS: ACETAMINOPHEN 650 MG/SUPP.RECT RC PRN (20:13)
--- NOTE | 2020-12-25 22:00 | NUR ---
RN NOTE BS 220 MG/DL. 4 UNITS GIVEN, WILL MONITOR FOR HYPOGLYCEMIA. LAB CALLED TO SAY THAT THERE'S NO BLOOD AVAILABLE AND [facility] IS CLOSED, WHICH MEANS THEY CAN'T SEND SPECIMEN. BLOOD WILL BE FOR AM.
[2020-12-26] VITALS (8 sets, daily range): BP systolic 122–140; BP diastolic 60–79
[2020-12-26] MEDS: PIPERACILLIN /TAZOBACTAM 2.25 G in IV D5W 50 ML IV SCH ×4 (01:12→21:43)
[2020-12-26] MEDS: IPRATROPIUM NEB FS 0.5 MG/2.5 ML AMPUL.NEB NEB SCH ×4 (01:59→20:39)
--- NOTE | 2020-12-26 02:07 | NUR ---
BLOOD TRANSFUSION INITIATED VITAL SIGNS STABLE, AFIBRILE AT THIS TIME. WILL MONITOR PATIENT PER PROTOCOL.
--- NOTE | 2020-12-26 05:25 | NUR ---
BLOOD TRANSFUSION ENDED. NO TRANSFUSION REACTION OBSERVED. VITAL SIGNS REMAINED STABLE. WILL MONITOR PATIENT CLOSELY.
[2020-12-26] MEDS: INSULIN REGULAR, HUMAN 100 UNIT/ML 3 ML VIAL SQ PRN ×2 (06:26→11:22)
[2020-12-26] MEDS: BLOOD SUGAR DIAGNOSTIC 1 EACH STRIP VI SCH ×4 (06:35→22:00)
--- NOTE | 2020-12-26 06:35 | NUR ---
bs 261 9 units given for coverage
[2020-12-26] MEDS: IV 1/2NS 1000 ML 1,000 ML IV PRN (06:37)
--- NOTE | 2020-12-26 07:30 | NUR ---
RN CLOSING NOTE PATIENT IN BED, EYES CLOSED. PATIENT AFIBRILE AT THIS TIME. BREATHING EVEN AND UNLABORED. S/P I UNIT PRBC TRANSFUSION, PATIENT HAS ONGOING TF NEPRO AT 45 ML/HR. OH CATHETER PATENT DRAINING YELLOW URINE. LAC 20 G PATENT AND INTACT WITH ONGOING IVF. SAFETY MEASURES MAINTAINED. ALL NEEDS MET AND ATTENDED, ALL ORDERS CARRIED OUT. ENDORSED TO DAY SHIFT NURSE FOR NEIL.
--- NOTE | 2020-12-26 07:44 | NUR ---
RN OPENING NOTE PT AWAKE IN BED RESTING. ON RA WITH NO SOB OR RESPIRATORY DISTRESS PRESENT. A/O X1 AND NONVERBAL. NO COMPLAINT OF PAIN OR NAUSEA. ON BEDREST WITH DIAPER PRESENT. NO EDEMA PRESENT. NO DICE DEALER. SKIN ISSUES PRESENT, PICTURES IN CHART, WOUND CARE ORDERED. F/C PRESENT AND DRAINS WELL. G/T PRESENT WITH NEPHRO RUNNING AT 45 ML/HR. IV PRESENT ON R HAND AND FLUSHES WELL. NS RUNNING AT 100 ML/HR. LABS AND ORDERS REVIEWED. SAFETY MEASURES IN PLACE. SIDE RAILS RAISED. BED LOWERED. CALL LIGHT WITHIN REACH. WILL CONTINUE TO MONITOR.
[2020-12-26] MEDS ORDERED: INSULIN DETEMIR 100 UNIT/ML CARTRIDGE SQ SCH (09:00)
[2020-12-26] MEDS: FERROUS SULFATE (325 MG) 325 MG/TAB TABLET GT SCH (09:21)
[2020-12-26] MEDS: DOCUSATE SODIUM LIQ 100 MG/10 ML UDC GT SCH ×2 (09:21→17:00)
[2020-12-26] MEDS: clonazePAM 0.5 MG TABLET PO SCH ×2 (09:22→21:45)
[2020-12-26] MEDS: ACETAMINOPHEN 325 MG TABLET PO PRN ×2 (09:22→21:56)
[2020-12-26] MEDS: VIT B CMPLX 3/FA/VIT C/BIOTIN 1 TAB TABLET GT SCH (09:22)
[2020-12-26] MEDS: PANTOPRAZOLE 40 MG/PACK PACK GT SCH ×2 (09:22→17:00)
[2020-12-26] MEDS: FOLIC ACID 1 MG TABLET GT SCH (09:22)
[2020-12-26] MEDS: CHOLECALCIFEROL (VITAMIN D 3) 400 UNIT TABLET GT SCH (09:22)
[2020-12-26] MEDS: METOPROLOL TARTRATE 25 MG TABLET GT SCH ×2 (09:22→17:00)
[2020-12-26] MEDS: HYDROGEL DRESSING 90 GM TUBE TP SCH (09:25)
[2020-12-26] MEDS: Z GUARD REMEDY 2 OZ OINT TP SCH (09:26)
[2020-12-26 09:50] LABS: HEMOGLOBIN 9.4 g/dL (11.5-14.8)
[2020-12-26] MEDS: INSULIN GLARGINE, 100 UNIT/ML CARTRIDGE SQ SCH ×2 (11:23→21:45)
--- NOTE | 2020-12-26 14:24 | NUR ---
RN NOTE REPORT GIVEN TO SHARMIN FOR NEIL
--- NOTE | 2020-12-26 14:30 | NUR ---
MS RN NOTE RECEIVED PATIENT ON BED AWAKE, NON VERBAL WITH NO SIGNS OF RESPIRATORY DISTRESS. PATIENT ON ROOM AIR WITH NON LABORED BREATHING SATURATING AT 97-100%. OH CATHETER PRESENT AND DRAINING WELL. G-TUBE PRESENT WITH NEPHRO RUNNING AT 45 ML/HR. IV PRESENT ON R HAND AND FLUSHES WELL. NS RUNNING AT 100 ML/HR. LABS AND ORDERS REVIEWED. SAFETY MEASURES IN PLACE WITH BED AT LOWEST AND LOCKED POSITION. SIDE RAILS RAISED. CALL LIGHT AND TABLE WITHIN REACH. WILL CONTINUE TO MONITOR PATIENT.
--- NOTE | 2020-12-26 14:45 | NUR ---
MS RN NOTE PATIENT PICKED UP FOR HIDA SCAN, IN STABLE CONDITION.
--- NOTE | 2020-12-26 15:30 | NUR ---
MS RN NOTE PATIENT RETURNED FROM HIDA SCAN. PER PINO [place]. KEEP PATIENT NPO AND THEY WILL DO ANOTHER SCAN LATER ON. GTUBE NOT HOOKED BACK INSTRUCTED, FOR ANOTHER HIDA SCAN LATER ON. WILL CONTINUE TO MONITOR PATIENT.
--- NOTE | 2020-12-26 18:30 | NUR ---
MS RN NOTE PATIENT PICKED UP FOR HIDA SCAN MAINTAINED ON NPO AND G-TUBE FEEDING ON HOLD.
--- NOTE | 2020-12-26 19:15 | NUR ---
MS RN NOTE PATIENT STILL IN NUCLEAR MEDICINE DEPARTMENT FOR HIDA SCAN. PATIENT ENDORSED TO NEXT SHIFT NURSE, IN STABLE CONDITION. ENDORSED TO SCOUTS FOR CONTINUITY OF CARE.
[2020-12-26 19:48] LABS: BASOPHILS # (AUTO) 0.1 K/uL (0.0-0.2); BASOPHILS % (AUTO) 0.4 % (0.0-2.0); EOSINOPHILS % (AUTO) 0.8 % (0.0-6.0); HEMATOCRIT 27 % (33-45); HEMOGLOBIN 8.7 g/dL (11.5-14.8); LYMPHOCYTES # (AUTO) 1.8 K/uL (0.8-4.8); LYMPHOCYTES % (AUTO) 9.4 % (20.0-44.0); MEAN CORPUSCULAR HGB CONC 32 g/dl (31.0-36.0); MEAN CORPUSCULAR VOLUME 93 fL (82-100); MONOCYTES # (AUTO) 1.1 K/uL (0.1-1.30); MONOCYTES % (AUTO) 5.6 % (2.0-12.0); NEUTROPHILS # (AUTO) 16.3 K/uL (1.8-8.9); NEUTROPHILS % (AUTO) 83.8 % (43.0-81.0); PLATELET COUNT (AUTO) 318 K/uL (150-450); RED BLOOD CELL COUNT(AUTO) 2.92 MIL/uL (4.0-5.2); WHITE BLOOD COUNT (AUTO) 19.4 K/uL (4.3-11.0)
--- NOTE | 2020-12-26 21:57 | NUR ---
RN NOTES: TYLENOL 650 MG GIVEN FOR FEVER 100.6
[2020-12-26] MEDS: *INSULIN REGULAR(HUMULIN R)HUM 100 UNIT/ML VIAL SQ PRN (23:11)
[2020-12-27] VITALS (57 sets, daily range): BP systolic 60–168; BP diastolic 40–93
--- NOTE | 2020-12-27 01:37 | NUR ---
MS RN OPENING NOTES: RECEIVED PATIENT FROM HIDA PROCEDURE AT 1999, NO COMPLAIN OF PAIN AND DISCOMFORT AT THIS TIME, BED IN LOW POSITION, CALL LIGHTS WITHIN REACH, ON G TUBE FEEDING OF NEPHRO AT 45ML/HR INFUSING WELL, IV LINE AT RFA #20 WITH 1/2 NS @75ML/HR INFUSING WELL, PATIENT WAS FEBRILE AT 100.6 TYLENOL 650MG GIVEN, COLD COMPRESS APPLIED, TEMPERATURE WENT BACK TO NORMAL, ON CLOSE MONITORING, PATIENT KEPT CLEAN AND DRY, ALL NEEDS MET WILL CONTINUE TO MONITOR.
[2020-12-27] MEDS: IV 1/2NS 1000 ML 1,000 ML IV PRN ×2 (01:49→16:33)
[2020-12-27] MEDS: IPRATROPIUM NEB FS 0.5 MG/2.5 ML AMPUL.NEB NEB SCH ×4 (02:07→19:46)
--- NOTE | 2020-12-27 02:07 | NUR ---
RT NOTE PT FOUND ON 2LPM NASAL CANNULA. PT TOLERATING WELL. SPO2 @ 97%. WILL MONITOR.
[2020-12-27] MEDS: PIPERACILLIN /TAZOBACTAM 2.25 G in IV D5W 50 ML IV SCH ×4 (03:22→20:20)
--- NOTE | 2020-12-27 05:29 | NUR ---
RT NOTE PT INTUBATED AT THIS TIME WITH 7.0 ET TUBE @ 22 CM LIP LINE. ET TUBE SECURED VIA ET TUBE GRAY. CUFF INFLATED AND ABLE TO USE AMBU BAG WITH NO RESISTANCE. BILATERAL CHEST RISE NOTED. PT TRANSFERRED TO ICU ON MECHANICAL VENTILATION WITH CURRENT VENT SETTINGS OF AC 16, 450, 100%, +5. WILL CONTINUE TO MONITOR CLOSELY.
--- NOTE | 2020-12-27 05:44 | NUR ---
RECEIVED PT FROM S/P MIKE TELLEZ ORALLY INTUBATED WITH ETT 10/19 WITH VENT SETTING PER MD ORDER FIO2 100% SPO2 100%, HOOKED TO BED SIDE MONITOR WITH READING SVT @ 180, PUT PT COMFORTABLY ON BED, PT CURRENTLY ON PROPOFOL @ 5 MCG/KG/MIN WILL TITRATE PER PROTOCOL VIA RFA# 20 AND / NS @ 100 ML/HR INFUSING WELL, PUT BILATERAL SOFT WRIST RESTRAINTS FOR SELF INTUBATION PRECAUTION, BED ON LOWEST POSITION AND LOCKED SIDE RAILS UP X2, WILL CONT TO MONITOR
[2020-12-27] MEDS ORDERED: PROPOFOL 100 ML IV PRN (06:00)
--- NOTE | 2020-12-27 06:30 | NUR ---
RN NOTES: PATIENT WAS FOUND UNRESPONSIVE AT 0520, ASSESS PULSE AND WAS UNAPPRECIATED, INFORMED CHARGE NURSE STARTED CPR WHILE CALLING CODE BLUE, TIME OF ARRIVAL OF CODE TEAM 0526, UPON ASSESSMENT PT. WAS THEN FOUND ASYSTOLE, EPI X1 WAS GIVEN, FIRST ASSISTED VENTILATION WAS GIVEN, WITH POSITIVE RESPONSE, RESUSCITATION ENDED AT 0528, PATIENT WAS INTUBATED AT 0530 LENGTH SIZE 7, 22CM INITIATE BY DR FUNMILAYO RIVERA, INITIATE THE TRANSFER TO ICU AT 0540 ON RM 258, DR MENJIVAR WAS NOTIFIED, HENRI BHAGAT CALLED BOTH SONS AND DAUGHTER AND LEFT MESSAGE TO AWAITING FOR REPLY.
[2020-12-27 06:31] LABS: BASOPHILS # (AUTO) 0.1 K/uL (0.0-0.2); BASOPHILS % (AUTO) 0.4 % (0.0-2.0); EOSINOPHILS % (AUTO) 0.1 % (0.0-6.0); HEMATOCRIT 25 % (33-45); HEMOGLOBIN 7.9 g/dL (11.5-14.8); LYMPHOCYTES # (AUTO) 4.6 K/uL (0.8-4.8); MEAN CORPUSCULAR HGB CONC 32 g/dl (31.0-36.0); MEAN CORPUSCULAR VOLUME 98 fL (82-100); MONOCYTES # (AUTO) 0.7 K/uL (0.1-1.30); MONOCYTES % (AUTO) 3.7 % (2.0-12.0); NEUTROPHILS # (AUTO) 12.9 K/uL (1.8-8.9); NEUTROPHILS % (AUTO) 70.8 % (43.0-81.0); PLATELET COUNT (AUTO) 345 K/uL (150-450); RED BLOOD CELL COUNT(AUTO) 2.53 MIL/uL (4.0-5.2); WHITE BLOOD COUNT (AUTO) 18.3 K/uL (4.3-11.0)
[2020-12-27 06:31] LABS: ABG BASE EXCESS -14.9 mmol/L; ABG OXYGEN SATURATION 99.5 % (92.0-98.5); ABG PCO2 27.4 mmHg (35.0-45.0); ABG PH 7.231 (7.350-7.450); ABG PO2 488.9 mmHg (75.0-100.0); AaDO2 196.7 mmHg; COHb 0.2 % (0.5-1.5); MetHb 0.6 % (0.0-1.5); O2Hb 98.7 % (94.0-97.0); PEEP,BG 5 cm H2O; SITE, ABG Right Brachial; VENT MODE, BG AC16 VT450 100% +5; VT, ABG 450 mL
[2020-12-27] MEDS ORDERED: NOREPINEPHRINE 8MG/250ML RTU 250 ML IV ONE (06:31)
--- NOTE | 2020-12-27 06:35 | NUR ---
INFORMED ONCALL BETHANY MENJIVAR THAT PT SBP IS ON 60S WITH ORDER FOR LEVOPHED TO TITRATE PER PROTOCOL AND INSERT PICC LINE NOTED AND CARRIED OUT
[2020-12-27 06:42] LABS: TRIGLYCERIDES 106 mg/dL (30-150)
[2020-12-27 06:45] LABS: ALBUMIN 1.8 g/dL (3.4-5.0); BILIRUBIN,TOTAL 0.5 mg/dL (0.2-1.0); CALCIUM, SERUM 8.3 mg/dL (8.5-10.1); CREATININE 2.3 mg/dL (0.6-1.3); PHOSPHORUS 5.3 mg/dL (2.5-4.9); POTASSIUM 4.2 mmol/L (3.5-5.1); TOTAL PROTEIN, SERUM 6.3 g/dL (6.4-8.2)
--- NOTE | 2020-12-27 06:55 | NUR ---
INFORMED BETHANY BARBOSA FOR LACTIC ACID 5.8 AND POST INTUBATION ABG WITH NO NEW ORDER
[2020-12-27] MEDS ORDERED: NOREPINEPHRINE 8 MG in IV NS 0.9% 242 ML IV PRN (07:00)
[2020-12-27] MEDS: INSULIN REGULAR, HUMAN 100 UNIT/ML 3 ML VIAL SQ PRN ×3 (07:12→17:24)
--- NOTE | 2020-12-27 07:30 | NUR ---
PATIENT RECEIVED ORALLY INTUBATED TO FULL VENT SUPPORT, NOT OVERBREATHING THE VENT. CURRENTLY SEDATED ON DIPRIVAN DRIP AT 15 MCG/KG/MIN. BILATERAL PUPILS SLUGGISH TO LIGHT , + GAG/COUGH REFLEX, ALL EXTREMITIES FLACCID WITHOUT PURPOSEFUL MOVEMENTS NOTED. SR ON MONITOR -80'S. SBP >110 WITH ONGOING LEVOPHED AT 0.1 MCG/KG/MIN. WILL TITRATE ABLE. GT CLAMPED AT THIS TIME. FC INPLACED TO CLEAR YELLOW UO. AFEBRILE 97.8.
[2020-12-27] MEDS: BLOOD SUGAR DIAGNOSTIC 1 EACH STRIP VI SCH ×4 (07:40→22:11)
--- NOTE | 2020-12-27 08:00 | NUR ---
NO RESPONSE TO STERNAL RUB, NO SPONTANEOUS RESPIRATIONS OVER THE VENT SET RATE -TITRATED OFF DIPRIVAN AT THIS TIME. CONTINUE TO MONITOR.
--- NOTE | 2020-12-27 08:30 | NUR ---
ABG/CXR REVIEWED BY DR. CHARLTON. ADJUSTMENTS MADE BY RT PER .
[2020-12-27 08:32] LABS: ABG BASE EXCESS -9.2 mmol/L; ABG OXYGEN SATURATION 99.1 % (92.0-98.5); ABG PCO2 27.8 mmHg (35.0-45.0); ABG PH 7.355 (7.350-7.450); ABG PO2 210.6 mmHg (75.0-100.0); AaDO2 114.6 mmHg; COHb 0.3 % (0.5-1.5); MetHb 0.7 % (0.0-1.5); O2Hb 98.1 % (94.0-97.0); SITE, ABG Right Radial
[2020-12-27] MEDS ORDERED: EPINEPHRINE (1:10,000) SYRINGE 1 MG/10 ML DISP.SYRIN IVP ONE (08:36)
--- NOTE | 2020-12-27 09:00 | NUR ---
BP REMAINS STABLE OFF LEVO.
[2020-12-27] MEDS: PANTOPRAZOLE 40 MG/PACK PACK GT SCH ×2 (09:24→17:12)
[2020-12-27] MEDS: clonazePAM 0.5 MG TABLET PO SCH ×2 (09:24→20:20)
[2020-12-27] MEDS: FERROUS SULFATE (325 MG) 325 MG/TAB TABLET GT SCH (09:24)
[2020-12-27] MEDS: METOPROLOL TARTRATE 25 MG TABLET GT SCH ×2 (09:24→17:12)
[2020-12-27] MEDS: DOCUSATE SODIUM LIQ 100 MG/10 ML UDC GT SCH ×2 (09:24→17:11)
[2020-12-27] MEDS: FOLIC ACID 1 MG TABLET GT SCH (09:24)
[2020-12-27] MEDS: CHOLECALCIFEROL (VITAMIN D 3) 400 UNIT TABLET GT SCH (09:24)
[2020-12-27] MEDS: VIT B CMPLX 3/FA/VIT C/BIOTIN 1 TAB TABLET GT SCH (09:24)
[2020-12-27] MEDS: Z GUARD REMEDY 2 OZ OINT TP SCH (09:26)
[2020-12-27] MEDS: HYDROGEL DRESSING 90 GM TUBE TP SCH (09:26)
[2020-12-27] MEDS: INSULIN GLARGINE, 100 UNIT/ML CARTRIDGE SQ SCH ×2 (09:32→21:16)
--- NOTE | 2020-12-27 09:41 | NUR ---
RT NOTE ETT TUBE PULLED OUT 2CM PER MD PELEG ORDER. ETT IS @ 20CM UPPER LIPLINE. RN JARETT TREVINO.
[2020-12-27] MEDS ORDERED: ROCURONIUM BROMIDE 50 MG/5 ML IV ONE (10:06)
[2020-12-27] MEDS ORDERED: SUCCINYLCHOLINE CHLORIDE 20 MG/ML VIAL IV ONE (10:06)
--- NOTE | 2020-12-27 11:00 | NUR ---
PATIENT ACCOMPANIED TO RADIOLOGY FOR HEAD CT WITHOUT CONTRAST.
--- NOTE | 2020-12-27 11:30 | NUR ---
UNABLE TO REACH DAUGHTER TO OBTAIN PICC LINE CONSENT.
[2020-12-27 12:46] LABS: THYROID STIMULATING HORMONE 1.465 uIU/mL (0.358-3.74)
[2020-12-27] MEDS: NEPRO 1,000 ML BOTTLE GT PRN (14:55)
--- NOTE | 2020-12-27 16:00 | NUR ---
NO DISTRESS OFF SEDATION. BP STABLE OFF PRESSORS. OPENS EYES SLIGHTLY ON PAIN STIMULI. WITHDRAWS TO PAIN AT THIS TIME. COMPLETE PM CARE DONE.
--- NOTE | 2020-12-27 16:30 | NUR ---
PATIENT RECEIVED ORALLY INTUBATED /VENT SETTING PER MD FIO2 35% SPO2 100% NOT OVERBREATHING THE VENT. OFF SEDATION SINCE 0800, BILATERAL PUPILS SLUGGISH TO LIGHT , + GAG/COUGH REFLEX,OPEN EYES TO PAIN, SR ON MONITOR -80'S. SBP >110 WITH ONGOING LEVOPHED AT 0.1 MCG/KG/MIN. WILL TITRATE ABLE. GT AT PLACE WITH ONGOING GLUCERNA @ 45ML/HR RESIDUAL 5ML, FC INPLACED TO CLEAR YELLOW UO. AFEBRILE 98.2. BILATERAL SOFT WRIST RESTRAINTS ON PLACE CIRCULATION WILL BE CHECKED REGULARLY BED ON LOWEST POSITION AND LOCKED SIDE RAILS UP X2 WILL CONT TO MONITOR
[2020-12-27 16:48] LABS: BILIRUBIN,URINE NEGATIVE (NEGATIVE); COLOR,URINE YELLOW (YELLOW); LEUKOCYTE ESTERASE ,URINE LARGE (NEGATIVE); NITRITE, URINE NEGATIVE (NEGATIVE); PROTEIN,URINE 30 mg/dl (NEGATIVE); UGLUCOSE NEGATIVE (NEGATIVE); UROBILINOGEN,URINE 0.2 EU/dL (0.2)
[2020-12-27 18:43] LABS: RBC,URINE 51-80 /HPF (0-2)
[2020-12-27 18:44] LABS: BACTERIA,URINE 1+ /HPF (None Seen); SQUAMOUS EPITHELIAL CELL,UR Few /HPF (None Seen); WBC,URINE 81-100 /HPF (0-3); YEAST,URINE Many /HPF (None Seen)
[2020-12-27 18:45] LABS: COARSE GRANULAR CASTS,URINE Few /LPF (None Seen)
[2020-12-27] MEDS: *INSULIN REGULAR(HUMULIN R)HUM 100 UNIT/ML VIAL SQ PRN (21:17)
[2020-12-27 22:16] LABS: HEMOGLOBIN 8.4 g/dL (11.5-14.8)
[2020-12-27 23:49] LABS: BILIRUBIN,DIRECT 0.2 mg/dL (0.0-0.2)
[2020-12-28] VITALS (38 sets, daily range): BP systolic 117–166; BP diastolic 57–92
--- NOTE | 2020-12-28 01:08 | NUR ---
PT STILL ORALLY INTUBATED NOT SEDATED NOT ON DISTRESS VENT SETTING PER MD FIO2 35% FIO2 100% WILL CONT TO MONITOR
[2020-12-28] MEDS: IV 1/2NS 1000 ML 1,000 ML IV PRN ×2 (02:27→14:03)
[2020-12-28] MEDS: PIPERACILLIN /TAZOBACTAM 2.25 G in IV D5W 50 ML IV SCH ×4 (02:28→21:18)
[2020-12-28] MEDS: IPRATROPIUM NEB FS 0.5 MG/2.5 ML AMPUL.NEB NEB SCH ×4 (03:20→19:34)
[2020-12-28 04:30] LABS: BASOPHILS % (AUTO) 0.1 % (0.0-2.0); EOSINOPHILS % (AUTO) 0.1 % (0.0-6.0); HEMATOCRIT 25 % (33-45); HEMOGLOBIN 8.2 g/dL (11.5-14.8); LYMPHOCYTES # (AUTO) 1.1 K/uL (0.8-4.8); LYMPHOCYTES % (AUTO) 7.6 % (20.0-44.0); MEAN CORPUSCULAR HGB CONC 33 g/dl (31.0-36.0); MEAN CORPUSCULAR VOLUME 94 fL (82-100); MONOCYTES # (AUTO) 0.7 K/uL (0.1-1.30); MONOCYTES % (AUTO) 4.7 % (2.0-12.0); NEUTROPHILS # (AUTO) 12.5 K/uL (1.8-8.9); NEUTROPHILS % (AUTO) 87.5 % (43.0-81.0); PLATELET COUNT (AUTO) 315 K/uL (150-450); RED BLOOD CELL COUNT(AUTO) 2.67 MIL/uL (4.0-5.2); WHITE BLOOD COUNT (AUTO) 14.2 K/uL (4.3-11.0)
[2020-12-28 04:49] LABS: ALBUMIN 1.7 g/dL (3.4-5.0); BILIRUBIN,TOTAL 0.4 mg/dL (0.2-1.0); CALCIUM, SERUM 8.1 mg/dL (8.5-10.1); CREATININE 1.9 mg/dL (0.6-1.3); POTASSIUM 3.1 mmol/L (3.5-5.1)
--- NOTE | 2020-12-28 06:16 | NUR ---
PT ON BED ASLEEP OPEN EYES TO STIMULI NOT ON ANY DISTRESS STILL ORALLY INTUBATED, VENT SETTING PER MD FIO2 35% SPO2 100, TELE MONITOR READS SINUS RHYTHM 99, GTUBE ON PLACE WITH GLUCERNA RUNNING @ 45ML/HR HAVE 1/2 NS @ 100 ML/HR INFUSING VIA CARL PICC BILATERAL WRIST SOFT RESTRAINTS MAINTAINED FOR SELF EXTUBATION PREVENTION BED ON LOWEST POSITION AND LOCKED SIDE RAILS UP WILL CONT TO MONITOR
[2020-12-28] MEDS: INSULIN REGULAR, HUMAN 100 UNIT/ML 3 ML VIAL SQ PRN ×3 (06:43→18:45)
[2020-12-28] MEDS: BLOOD SUGAR DIAGNOSTIC 1 EACH STRIP VI SCH (06:49)
[2020-12-28] MEDS ORDERED: DEXTROSE 50%-WATER 50 ML DISP.SYRIN IV PRN (07:30)
[2020-12-28] MEDS: PANTOPRAZOLE 40 MG/PACK PACK GT SCH ×2 (08:09→16:07)
[2020-12-28] MEDS: DOCUSATE SODIUM LIQ 100 MG/10 ML UDC GT SCH ×2 (08:09→16:06)
[2020-12-28] MEDS: clonazePAM 0.5 MG TABLET PO SCH ×2 (08:09→21:18)
[2020-12-28] MEDS: METOPROLOL TARTRATE 25 MG TABLET GT SCH ×2 (08:10→16:07)
[2020-12-28] MEDS: FOLIC ACID 1 MG TABLET GT SCH (08:10)
[2020-12-28] MEDS: FERROUS SULFATE (325 MG) 325 MG/TAB TABLET GT SCH (08:10)
[2020-12-28] MEDS: VIT B CMPLX 3/FA/VIT C/BIOTIN 1 TAB TABLET GT SCH (08:10)
[2020-12-28] MEDS: CHOLECALCIFEROL (VITAMIN D 3) 400 UNIT TABLET GT SCH (08:11)
[2020-12-28] MEDS: INSULIN GLARGINE, 100 UNIT/ML CARTRIDGE SQ SCH ×2 (08:12→21:00)
[2020-12-28] MEDS: HYDROGEL DRESSING 90 GM TUBE TP SCH (08:34)
[2020-12-28] MEDS: Z GUARD REMEDY 2 OZ OINT TP SCH (08:34)
[2020-12-28] MEDS ORDERED: POTASSIUM CHLORIDE 20 MEQ POWDER PACKET GT SCH (11:00)
--- NOTE | 2020-12-28 11:01 | NUR ---
WILL GIVE POTASSIUM LATER DUE PT IS VOMITTING, PRN ZOFRAN IS GIVEN
[2020-12-28] MEDS: BLOOD SUGAR DIAGNOSTIC 1 EACH STRIP IN SCH ×2 (11:43→18:42)
[2020-12-28] MEDS: NEPRO 1,000 ML BOTTLE GT PRN (14:03)
[2020-12-28] MEDS: hydrALAZINE HCL IV 20 MG VIAL IV PRN (18:51)
--- NOTE | 2020-12-28 19:45 | NUR ---
PRODUCTION SORTER OPENING NOTE RECEIVED PT IN BED, OBTUNDED WITH POSITIVE MOTOR RESPONSE TO LIGHT PAIN AND EYE OPENING TO SPEECH AND TOUCH. REMAINS ON ETT 7/20CM WITH VENT SETTINGS FOLLOWS: AC 16 TV 450 FIO2 35% PEEP OF 5. PT TOLERATING VENT SETTINGS WELL NO S/S OF RESP DISTRESS NOTED. PT. ON TELE MONITOR SINUS TACHYCARDIA 110'S. OH CATHETER NOTED, FREE OF KINKS OR OBSTRUCTIONS DRAINING TO GRAVITY CLEAR YELLOW URINE. MULTIPLE WOUNDS NOTED; DRESSINGS REMAIN CLEAN AND DRY. G TUBE NOTED, DECLOGGED & FLUSHED; NOW PATENT & POSITIVE PLACEMENT VERIFIED BY AUSCULTATION WITH 0 RESIDUAL NOTED. FEEDING TO BE CHANGED TO GLUCERNA 1.2; AWAITING FEED TO ARRIVE FROM NURSING CUSTOMER SERVICE VOICE'S OFFICE. (R) UA PICC, (R) FA #20, (R) WRIST #20 AND (L) FA #20 ALL FLUSHED AND PATENT WITH CLEAN AND DRY DRESSINGS; 1/2 NS RUNNING AT 100 ML/ HR. SAFETY MEASURES IMPLEMENTED; BED LOCKED IN LOWEST POSITION, CALL LIGHT WITHIN REACH, BED ALARM ON, ASPIRATION PRECAUTIONS IMPLEMENTED, SIDE RAILS UP X3. NO ACUTE DISTRESS NOTED AT THIS TIME.
--- NOTE | 2020-12-28 21:26 | NUR ---
HVAC SERVICE MANAGER NOTE INSULIN LANTUS 12 UNITS HELD PER LEVEL ORDERED, CURRENT BLOOD GLUCOSE 116 MG/DL.
[2020-12-28] MEDS: GLUCERNA 1.2 1,000 ML BOTTLE GT PRN (21:45)
[2020-12-29] VITALS (24 sets, daily range): BP systolic 99–148; BP diastolic 54–75
--- NOTE | 2020-12-29 00:10 | NUR ---
LEAD HOUSEKEEPER NOTE POC GLUCOSE LEVEL TAKEN, BLOOD SUGAR LEVEL OF 130 MG/DL. NO INSULIN COVERAGE PER SLIDING SCALE
[2020-12-29] MEDS: IV 1/2NS 1000 ML 1,000 ML IV PRN ×3 (00:40→23:32)
[2020-12-29] MEDS: INSULIN REGULAR, HUMAN 100 UNIT/ML 3 ML VIAL SQ PRN ×5 (00:59→23:25)
[2020-12-29] MEDS: BLOOD SUGAR DIAGNOSTIC 1 EACH STRIP IN SCH ×5 (00:59→23:27)
[2020-12-29] MEDS: IPRATROPIUM NEB FS 0.5 MG/2.5 ML AMPUL.NEB NEB SCH ×4 (01:28→19:42)
[2020-12-29] MEDS: PIPERACILLIN /TAZOBACTAM 2.25 G in IV D5W 50 ML IV SCH ×2 (03:08→09:32)
[2020-12-29 04:43] LABS: BASOPHILS % (AUTO) 0.1 % (0.0-2.0); EOSINOPHILS % (AUTO) 0.2 % (0.0-6.0); HEMATOCRIT 24 % (33-45); HEMOGLOBIN 7.8 g/dL (11.5-14.8); LYMPHOCYTES # (AUTO) 1.4 K/uL (0.8-4.8); LYMPHOCYTES % (AUTO) 8.6 % (20.0-44.0); MEAN CORPUSCULAR HGB CONC 33 g/dl (31.0-36.0); MEAN CORPUSCULAR VOLUME 94 fL (82-100); MONOCYTES # (AUTO) 0.7 K/uL (0.1-1.30); MONOCYTES % (AUTO) 4.4 % (2.0-12.0); NEUTROPHILS # (AUTO) 13.7 K/uL (1.8-8.9); NEUTROPHILS % (AUTO) 86.7 % (43.0-81.0); PLATELET COUNT (AUTO) 313 K/uL (150-450); RED BLOOD CELL COUNT(AUTO) 2.55 MIL/uL (4.0-5.2); WHITE BLOOD COUNT (AUTO) 15.9 K/uL (4.3-11.0)
[2020-12-29 05:19] LABS: ALBUMIN 1.6 g/dL (3.4-5.0); BILIRUBIN,TOTAL 0.4 mg/dL (0.2-1.0); CALCIUM, SERUM 7.9 mg/dL (8.5-10.1); CREATININE 1.8 mg/dL (0.6-1.3); PHOSPHORUS 2.6 mg/dL (2.5-4.9); POTASSIUM 3.1 mmol/L (3.5-5.1)
--- NOTE | 2020-12-29 05:58 | NUR ---
BALING MACHINE OPERATOR NOTE POC GLUCOSE LEVEL TAKEN, BLOOD SUGAR LEVEL OF 148 MG/DL. 2 UNITS OF REGULAR INSULIN GIVEN SQ PER SLIDING SCALE
--- NOTE | 2020-12-29 06:31 | NUR ---
LIVESTOCK AGENT CLOSING NOTE PT REMAINS IN BED, OBTUNDED WITH POSITIVE MOTOR RESPONSE TO LIGHT PAIN AND EYE OPENING TO SPEECH AND TOUCH. REMAINS ON ETT 7/20CM WITH VENT SETTINGS FOLLOWS: AC 16 TV 450 FIO2 35% PEEP OF 5. PT TOLERATING VENT SETTINGS WELL NO S/S OF RESP DISTRESS NOTED. PT. ON TELE MONITOR SINUS TACHYCARDIA 100'S. OH CATHETER IN PLACE, FREE OF KINKS OR OBSTRUCTIONS DRAINING TO GRAVITY CLEAR YELLOW URINE. MULTIPLE WOUNDS NOTED; SEE NURSING FLOWSHEET. WOUND CARE COMPLETED ORDERED. G TUBE NOTED, FLUSHED AND PATENT; POSITIVE PLACEMENT VERIFIED BY AUSCULTATION WITH 0 RESIDUAL NOTED. GLUCERNA 1.2 RUNNING AT 45 ML/HR X 20 HRS TO BE STOPPED AT 1800. ALL NEEDS AND ORDERS MET THROUGHOUT SHIFT. PT. KEPT CLEAN AND DRY. (R) UA PICC, (R) FA #20, (R) WRIST #20 AND (L) FA #20 ALL FLUSHED AND PATENT WITH CLEAN AND DRY DRESSINGS; 1/2 NS RUNNING AT 100 ML/ HR. SAFETY MEASURES IMPLEMENTED; BED LOCKED IN LOWEST POSITION, CALL LIGHT WITHIN REACH, BED ALARM ON, ASPIRATION PRECAUTIONS IMPLEMENTED, SIDE RAILS UP X3. NO ACUTE DISTRESS NOTED AT THIS TIME. WILL ENDORSE TO MORNING SHIFT RN
--- NOTE | 2020-12-29 07:30 | NUR ---
OPENING NOTE: REPORT RECEIVED FROM KAVON JONES. PT OBTUNDED, EYES OPEN, RESPONDS ONLY TO PAINFUL STIMULI, NOT PURPOSEFUL. OH CATHETER DRAINING WITHOUT DIFFICULTY. TUBE FEEDING INFUSING PER MD ORDERS. PT CHECKED ON HOURLY AND PRN BY NURSING STAFF.
[2020-12-29] MEDS ORDERED: PHARMACY TO CHANGE PO MEDS TO GT/NG XX PRN (09:00)
[2020-12-29] MEDS: INSULIN GLARGINE, 100 UNIT/ML CARTRIDGE SQ SCH ×2 (09:00→23:26)
[2020-12-29] MEDS: DOCUSATE SODIUM LIQ 100 MG/10 ML UDC GT SCH ×2 (09:00→17:40)
--- NOTE | 2020-12-29 09:07 | NUR ---
LANTUS DOSE HELD THIS AM D/T MD ORDER TO HOLD DOSE IF BS <140. CURRENT BLOOD SUGAR IS 135.
[2020-12-29] MEDS ORDERED: MAG HYDROX/AL HYDROX/SIMETH 30 ML UDC GT PRN (09:11)
[2020-12-29] MEDS ORDERED: MAGNESIUM HYDROXIDE 30 ML UDC GT PRN (09:12)
[2020-12-29] MEDS: PANTOPRAZOLE 40 MG/PACK PACK GT SCH ×2 (09:32→17:40)
[2020-12-29] MEDS: clonazePAM 0.5 MG TABLET GT SCH ×2 (09:32→21:32)
[2020-12-29] MEDS: FOLIC ACID 1 MG TABLET GT SCH (09:32)
[2020-12-29] MEDS: FERROUS SULFATE (325 MG) 325 MG/TAB TABLET GT SCH (09:32)
[2020-12-29] MEDS: CHOLECALCIFEROL (VITAMIN D 3) 400 UNIT TABLET GT SCH (09:33)
[2020-12-29] MEDS: METOPROLOL TARTRATE 25 MG TABLET GT SCH ×2 (09:33→17:40)
[2020-12-29] MEDS: HYDROGEL DRESSING 90 GM TUBE TP SCH (09:34)
[2020-12-29] MEDS: VIT B CMPLX 3/FA/VIT C/BIOTIN 1 TAB TABLET GT SCH (09:34)
[2020-12-29] MEDS: ACETAMINOPHEN 650 MG/20.3 ML UDC GT PRN ×2 (09:35→23:38)
[2020-12-29] MEDS: Z GUARD REMEDY 2 OZ OINT TP SCH (09:35)
--- NOTE | 2020-12-29 10:05 | NUR ---
PT APPEARED TO HAVE STOOL IN HER RECTUM SHE WAS UNABLE TO GET OUT. RN GENTLY HELPED DISIMPACT A LARGE AMOUNT OF STOOL WITHOUT DIFFICULTY. STOOL WAS FIRM BUT NOT HARD. NO BLEEDING NOTED.
[2020-12-29] MEDS ORDERED: POTASSIUM CHLORIDE 20 MEQ POWDER PACKET GT ONE (10:30)
[2020-12-29] MEDS ORDERED: POTASSIUM CL. PREMIX PERIPHER. 50 ML IV SCH (10:30)
[2020-12-29 13:01] LABS: IRON, SERUM 16 ug/dl (50-175); TOTAL IRON BINDING CAPACITY 93 ug/dl (250-450)
[2020-12-29 13:19] LABS: FERRITIN 763 ng/mL (8-388)
[2020-12-29] MEDS ORDERED: MEROPENEM 500 MG in IV NS 0.9% 50 ML IV SCH (13:30)
[2020-12-29] MEDS: MEROPENEM 1 G in IV NS 0.9% 100 ML IV SCH (15:30)
--- NOTE | 2020-12-29 18:45 | NUR ---
END OF SHIFT NOTE: PT HAD A UNEVENTFUL SHIFT. LARGE BM THIS AM. CT OF CHEST DONE PER MD ORDERS. STOOL FOR OB SENT PER MD ORDERS. TMAX THIS SHIFT 101.1 ORALLY THIS AM, TYLENOL GIVEN, LAST TEMP WAS 99.0. PT CHECKED ON HOURLY AND PRN BY NURSING STAFF.
--- NOTE | 2020-12-29 20:05 | NUR ---
PT INTUBATED ON VENT. NO RESP DISTRESS. PT TOLERATING VENT SETTINGS. SX'D SMALL AMT OF THICK YELLOW SECRETIONS. VENT ALARMS SET AND AUDIBLE. VENT PLUGGED INTO RED OUTLET. Addendum: 12/29/20 at 2006 by MARCUS CLANCY Amended: Links added.
--- NOTE | 2020-12-29 21:22 | NUR ---
AIR PLANT ENGINEER. INITIAL ASSESSMENT. RECEIVED THE PT REST ON THE BED. ORALLY INTUBATED. ETT 7 -0 , AC 16, FIO2 35%, PEEP 5. SAT 96%. NO ACUTE DISTRESS NOTED. MODEL PHOTOGRAPHERS' SHOWING NSR. IV RT UPPER ARM PICC LINE IVF 1/2 NS 100 ML/HHOB ELEVATED. CITLALLI SOFT WRIST RESTRAINT CHECKED AND RELEASED. NO INJURY OR REDNESS NOTED. FC PATENT. WILL CONTINUE TO MONITOR VITALS.
[2020-12-29 22:00] LABS: OCCULT BLOOD STOOL NEGATIVE (NEGATIVE)
[2020-12-29] MEDS: GLUCERNA 1.2 1,000 ML BOTTLE GT PRN (23:27)
[2020-12-30] VITALS (42 sets, daily range): BP systolic 110–177; BP diastolic 54–87
[2020-12-30] MEDS: IPRATROPIUM NEB FS 0.5 MG/2.5 ML AMPUL.NEB NEB SCH ×4 (01:48→19:57)
[2020-12-30] MEDS: MEROPENEM 1 G in IV NS 0.9% 100 ML IV SCH ×2 (02:21→16:20)
--- NOTE | 2020-12-30 03:10 | NUR ---
ASSISTANT OFFSET PRESS OPERATOR PT REMAINS OBTUNDED. RESPONSE TO PAINFUL STIMULI ONLY. VENT. SETTING REMAINS THE SAME. VSS, SCOPE-SR. IV SITE INTACT. TUBE FEEDING TOLERATES WELL. URINE OUTPUT IS ADEQUATE. COMPLETE BATH GIVEN, ALL LINEN CHANGED. REPOSITIONED Q 2 HOURS. MEDICATED ORDERED. WILL CONTINUE CLOSE MONITORING.
[2020-12-30 04:58] LABS: BASOPHILS % (AUTO) 0.3 % (0.0-2.0); EOSINOPHILS % (AUTO) 0.9 % (0.0-6.0); HEMATOCRIT 23 % (33-45); HEMOGLOBIN 7.6 g/dL (11.5-14.8); LYMPHOCYTES # (AUTO) 1.5 K/uL (0.8-4.8); LYMPHOCYTES % (AUTO) 11.5 % (20.0-44.0); MEAN CORPUSCULAR HGB CONC 33 g/dl (31.0-36.0); MEAN CORPUSCULAR VOLUME 94 fL (82-100); MONOCYTES # (AUTO) 0.7 K/uL (0.1-1.30); MONOCYTES % (AUTO) 5.6 % (2.0-12.0); NEUTROPHILS # (AUTO) 10.9 K/uL (1.8-8.9); NEUTROPHILS % (AUTO) 81.7 % (43.0-81.0); PLATELET COUNT (AUTO) 368 K/uL (150-450); RED BLOOD CELL COUNT(AUTO) 2.48 MIL/uL (4.0-5.2); WHITE BLOOD COUNT (AUTO) 13.4 K/uL (4.3-11.0)
[2020-12-30 05:06] LABS: ALBUMIN 1.5 g/dL (3.4-5.0); BILIRUBIN,TOTAL 0.4 mg/dL (0.2-1.0); CALCIUM, SERUM 7.8 mg/dL (8.5-10.1); CREATININE 1.8 mg/dL (0.6-1.3); PHOSPHORUS 2.8 mg/dL (2.5-4.9); POTASSIUM 3.9 mmol/L (3.5-5.1); TOTAL PROTEIN, SERUM 5.8 g/dL (6.4-8.2)
[2020-12-30] MEDS: BLOOD SUGAR DIAGNOSTIC 1 EACH STRIP IN SCH ×4 (05:21→23:23)
[2020-12-30] MEDS: INSULIN REGULAR, HUMAN 100 UNIT/ML 3 ML VIAL SQ PRN ×3 (05:22→23:24)
[2020-12-30 07:07] LABS: AFP, TUMOR MARKER 1.2 ng/mL (0.0-8.3); CARBOHYDRATE AG 19-9 60 U/mL (0-35); IMMUNOGLOBULIN A, SERUM 308 mg/dL (87-352); IMMUNOGLOBULIN G, SERUM 1142 mg/dL (586-1602); IMMUNOGLOBULIN M, SERUM 49 mg/dL (26-217)
--- NOTE | 2020-12-30 08:00 | NUR ---
RN NOTES RECEIVED PATIENT IN THE BED EET/VENT, NO SEDATION . NO ACUTE RESPIRATORY DISTRESS, FIO2-35, PEEP-5. VSS, GT INTACT NO RESIDUAL, KEEP HOB ELEVATED, OH DRAINING VIA GRAVITY, ASSIST TURN AND REPOSTION Q 2 HR. IV ACCESS ON RIGHT UA PICC LINE INTACT. DUE MEDICATION ADMINISTERED. SEEN HOSPITALIST. WILL FOLLOW UP .
[2020-12-30] MEDS: DOCUSATE SODIUM LIQ 100 MG/10 ML UDC GT SCH ×2 (09:13→17:19)
[2020-12-30] MEDS: PANTOPRAZOLE 40 MG/PACK PACK GT SCH ×2 (09:13→17:19)
[2020-12-30] MEDS: VIT B CMPLX 3/FA/VIT C/BIOTIN 1 TAB TABLET GT SCH (09:14)
[2020-12-30] MEDS: FERROUS SULFATE (325 MG) 325 MG/TAB TABLET GT SCH (09:14)
[2020-12-30] MEDS: CHOLECALCIFEROL (VITAMIN D 3) 400 UNIT TABLET GT SCH (09:14)
[2020-12-30] MEDS: FOLIC ACID 1 MG TABLET GT SCH (09:14)
[2020-12-30] MEDS: clonazePAM 0.5 MG TABLET GT SCH ×2 (09:14→20:15)
[2020-12-30] MEDS: METOPROLOL TARTRATE 25 MG TABLET GT SCH ×2 (09:14→17:19)
[2020-12-30] MEDS: Z GUARD REMEDY 2 OZ OINT TP SCH (09:16)
[2020-12-30] MEDS: HYDROGEL DRESSING 90 GM TUBE TP SCH (09:16)
[2020-12-30] MEDS: INSULIN GLARGINE, 100 UNIT/ML CARTRIDGE SQ SCH ×2 (09:29→20:23)
[2020-12-30] MEDS: IV 1/2NS 1000 ML 1,000 ML IV PRN ×2 (10:58→22:05)
--- NOTE | 2020-12-30 11:48 | NUR ---
rn notes seen patient via hospitalist Dr Yoon , and patient is DNR at this time.
[2020-12-30] MEDS: MORPHINE SULFATE INJ 2 MG/ML DISP.SYRIN IV PRN (12:34)
--- NOTE | 2020-12-30 12:34 | NUR ---
RN NOTES PATIENT BREATHING THROUGH VENT AC/16, VENT 26, INCREASED BP-164/ 76, P-100, R-16, ADMINISTERED MORPHINE SULFATE 2 MG/ML IV PUSH. WILL FOLLOW UP.
[2020-12-30] MEDS: ACETAMINOPHEN 650 MG/20.3 ML UDC GT PRN (17:20)
--- NOTE | 2020-12-30 17:21 | NUR ---
rn notes T- 100.4F administered Tylenol 650 mg via GT, and cooling measure.
--- NOTE | 2020-12-30 18:33 | NUR ---
RN NOTES RECHECKED T-99.2F, PM CARE DONE , SUCTION, MOUTH CARE DONE , BS-116 MG/DL, NO COVERAGE GIVEN, ASSIST TURN AND REPOSTION Q 2 HR, STOP GT FEEDING AT THIS TIME PRESCRIBED 20HR.FLASHED WITH WATER 200 ML, ASSIST TURN AND REPOSTION Q 2 HR, INFUSING 1/2 NS AT 100ML/HR INTACT ON RIGHT PICC LINE. REMOVED RESTRAIN . OH DRAINING VIA GRAVITY OUTPUT WAS 1230ML, BMX1. KEEP HOB ELEVATED FOR ASPIRATION PRECAUTION. ENDORSED ONCOMING NURSE FOLLOW PLAN OF CARE.
--- NOTE | 2020-12-30 19:05 | NUR ---
PATIENT RECEIVED ORALLY INTUBATED /VENT SETTING PER MD FIO2 35% SPO2 100% NOT OVERBREATHING THE VENT. BILATERAL PUPILS SLUGGISH TO LIGHT , + GAG/COUGH REFLEX,OPEN EYES TO STIMULI BUT NOT FOLLOWING ANY COMMANDS , RIGHT UPPER PICCLINE DRESSING DRY CLEAN AND INTACT WITH ONGOING 1/2 NS @ 100ML/HR INFUSING WELL, SINUS TACHY ON MONITOR 100'S. GT AT PLACE WITH ONGOING GLUCERNA @ 45ML/HR RESIDUAL 5ML, FC INPLACED TO CLEAR YELLOW UO. AFEBRILE 98.2. BED ON LOWEST POSITION AND LOCKED SIDE RAILS UP X2 WILL CONT TO MONITOR
[2020-12-30] MEDS: hydrALAZINE HCL IV 20 MG VIAL IV PRN (23:30)
[2020-12-31] VITALS (69 sets, daily range): BP systolic 82–154; BP diastolic 42–77
[2020-12-31] MEDS: IPRATROPIUM NEB FS 0.5 MG/2.5 ML AMPUL.NEB NEB SCH ×4 (01:35→20:29)
--- NOTE | 2020-12-31 02:10 | NUR ---
PT STILL ORALLY INTUBATED, ON ETT/VENT SETTING PER MD FIO2 35% SPO2 98-100% NO SIGN OF RESPIRATORY DISTRESS, NO PAIN NOTED PT STILL OBTUNDED, WILL CONT TO MONITOR
[2020-12-31] MEDS: MEROPENEM 1 G in IV NS 0.9% 100 ML IV SCH ×2 (02:18→14:35)
[2020-12-31] MEDS: BLOOD SUGAR DIAGNOSTIC 1 EACH STRIP IN SCH ×3 (05:29→17:53)
[2020-12-31] MEDS: INSULIN REGULAR, HUMAN 100 UNIT/ML 3 ML VIAL SQ PRN (05:30)
[2020-12-31 05:35] LABS: BASOPHILS # (AUTO) 0.1 K/uL (0.0-0.2); BASOPHILS % (AUTO) 0.5 % (0.0-2.0); HEMATOCRIT 25 % (33-45); HEMOGLOBIN 7.9 g/dL (11.5-14.8); LYMPHOCYTES # (AUTO) 1.4 K/uL (0.8-4.8); LYMPHOCYTES % (AUTO) 11.8 % (20.0-44.0); MEAN CORPUSCULAR HGB CONC 32 g/dl (31.0-36.0); MEAN CORPUSCULAR VOLUME 95 fL (82-100); MONOCYTES # (AUTO) 0.7 K/uL (0.1-1.30); MONOCYTES % (AUTO) 6.1 % (2.0-12.0); NEUTROPHILS # (AUTO) 9.2 K/uL (1.8-8.9); NEUTROPHILS % (AUTO) 80.6 % (43.0-81.0); PLATELET COUNT (AUTO) 461 K/uL (150-450); RED BLOOD CELL COUNT(AUTO) 2.62 MIL/uL (4.0-5.2); WHITE BLOOD COUNT (AUTO) 11.5 K/uL (4.3-11.0)
[2020-12-31 06:05] LABS: ALBUMIN 1.5 g/dL (3.4-5.0); BILIRUBIN,TOTAL 0.3 mg/dL (0.2-1.0); CALCIUM, SERUM 7.7 mg/dL (8.5-10.1); CREATININE 1.8 mg/dL (0.6-1.3); PHOSPHORUS 3.6 mg/dL (2.5-4.9); POTASSIUM 4.1 mmol/L (3.5-5.1); TOTAL PROTEIN, SERUM 5.9 g/dL (6.4-8.2)
--- NOTE | 2020-12-31 08:00 | NUR ---
rn notes BS-74, HELD LANTUS, SUCTION MOUTH CARE DONE, ASSIST TURN AND REPOSTION Q 2 HR. INFUSING 1/2 NS @100 ML/HR ON RIGHT PICC LINE UPPER ARM , NO RESIDUAL. KEEP HOB ELEVATED, PATIENT HAS NO ACUTE RESPIRATORY DISTRESS, DUE MEDICATION ADMINISTERED. WILL FOLLOW UP.
[2020-12-31] MEDS: GLUCERNA 1.2 1,000 ML BOTTLE GT PRN (08:01)
[2020-12-31] MEDS: INSULIN GLARGINE, 100 UNIT/ML CARTRIDGE SQ SCH ×2 (08:02→21:54)
[2020-12-31] MEDS: FOLIC ACID 1 MG TABLET GT SCH (08:27)
[2020-12-31] MEDS: PANTOPRAZOLE 40 MG/PACK PACK GT SCH ×2 (08:27→17:56)
[2020-12-31] MEDS: CHOLECALCIFEROL (VITAMIN D 3) 400 UNIT TABLET GT SCH (08:27)
[2020-12-31] MEDS: VIT B CMPLX 3/FA/VIT C/BIOTIN 1 TAB TABLET GT SCH (08:27)
[2020-12-31] MEDS: clonazePAM 0.5 MG TABLET GT SCH ×2 (08:27→20:56)
[2020-12-31] MEDS: DOCUSATE SODIUM LIQ 100 MG/10 ML UDC GT SCH ×2 (08:27→17:56)
[2020-12-31] MEDS: FERROUS SULFATE (325 MG) 325 MG/TAB TABLET GT SCH (08:28)
[2020-12-31] MEDS: METOPROLOL TARTRATE 25 MG TABLET GT SCH ×2 (08:28→17:56)
[2020-12-31] MEDS: HYDROGEL DRESSING 90 GM TUBE TP SCH (08:29)
[2020-12-31] MEDS: Z GUARD REMEDY 2 OZ OINT TP SCH (08:29)
[2020-12-31] MEDS: IV 1/2NS 1000 ML 1,000 ML IV PRN ×2 (09:03→18:47)
--- NOTE | 2020-12-31 12:00 | NUR ---
RN NOTES BS-76 MG/DL, RUNNING GLUCERNA 1.2 45ML/HR, ASSIST TURN AND REPOSTION Q 2 HR.
--- NOTE | 2020-12-31 13:42 | NUR ---
RN NOTES PATIENTS SON NAME ELENA VISITED HER MOM AT THIS TIME. NOTIFIED HOSPITALIST, AND Dr DUNLAP SPOKE WITH THE SON ABOUT PATIENTS CONDITION. GET SONS PHONE [phone].
--- NOTE | 2020-12-31 18:22 | NUR ---
RN NOTES PM CARE DONE, SUCTION, MOUTH CARE, KEEP HOB ELEVATED. STOP FEEDING 1800 ORDER , WILL START 2400 VIA NIGHT NURSE. INFUSING 1/2 NS @80ML/HR. OH DRAINING VIA GRAVITY OUTPUT WAS TOTAL 1100ML. , BP-1. BS-120MG/DL. ASSIST TURN AND REPOSTION Q 2 HR. BM X1. ELEVATED BILATERAL LOWER EXTREMITIES. ENDORSED ONCOMING NURSE NEIL.
--- NOTE | 2020-12-31 19:30 | NUR ---
RN NOTE RECEIVED PATIENT IN BED. OBTUNDED, OPENS EYES BUT DOES NOT TRACT. EET 7/20CM, MECHANICAL VENT AC 16, TV 450 PEEP 5. RESPIRATIONS ARE EVEN AND UNLABORED. NO S/S PAIN NOTED. IN NO APPARENT DISTRESS. TELE MONITOR READS SINUS TACHYCARDIA HR 100. IV ACCESS IN CRAL PICC LINE RUNNING 1/2NS@80ML/HR. RFA AND R WRIST #20 PATENT AND LFA#20 PATENT AND SALINE LOCKED. OH CATHETER DRAINING TO GRAVITY, URINE IS YELLOW AND CLEAR. GTUBE RESIDUAL 90CC. FLUSHED WITH NO RESISTANCE, FEEDING CURRENTLY CLAMPED WILL RESUME AT 2200. BED IS LOW AND LOCKED, HOB ELEVATED IN SEMI FOWLERS, SIDE RIALS UP X3.
[2021-01-01] VITALS (56 sets, daily range): BP systolic 92–180; BP diastolic 48–84
[2021-01-01] MEDS: BLOOD SUGAR DIAGNOSTIC 1 EACH STRIP IN SCH ×4 (00:13→18:45)
[2021-01-01] MEDS: INSULIN REGULAR, HUMAN 100 UNIT/ML 3 ML VIAL SQ PRN ×3 (00:19→18:44)
[2021-01-01] MEDS: IPRATROPIUM NEB FS 0.5 MG/2.5 ML AMPUL.NEB NEB SCH ×4 (01:30→20:05)
[2021-01-01] MEDS: MEROPENEM 1 G in IV NS 0.9% 100 ML IV SCH ×2 (02:39→15:25)
[2021-01-01 04:32] LABS: BASOPHILS # (AUTO) 0.1 K/uL (0.0-0.2); BASOPHILS % (AUTO) 0.6 % (0.0-2.0); HEMATOCRIT 24 % (33-45); HEMOGLOBIN 7.8 g/dL (11.5-14.8); LYMPHOCYTES # (AUTO) 1.7 K/uL (0.8-4.8); LYMPHOCYTES % (AUTO) 18.7 % (20.0-44.0); MEAN CORPUSCULAR HGB CONC 33 g/dl (31.0-36.0); MEAN CORPUSCULAR VOLUME 95 fL (82-100); MONOCYTES # (AUTO) 0.6 K/uL (0.1-1.30); MONOCYTES % (AUTO) 6.8 % (2.0-12.0); NEUTROPHILS # (AUTO) 6.7 K/uL (1.8-8.9); NEUTROPHILS % (AUTO) 72.9 % (43.0-81.0); PLATELET COUNT (AUTO) 519 K/uL (150-450); RED BLOOD CELL COUNT(AUTO) 2.54 MIL/uL (4.0-5.2); WHITE BLOOD COUNT (AUTO) 9.3 K/uL (4.3-11.0)
[2021-01-01 04:42] LABS: ALBUMIN 1.5 g/dL (3.4-5.0); BILIRUBIN,TOTAL 0.3 mg/dL (0.2-1.0); CALCIUM, SERUM 7.8 mg/dL (8.5-10.1); CREATININE 1.7 mg/dL (0.6-1.3); PHOSPHORUS 4.2 mg/dL (2.5-4.9); POTASSIUM 4.7 mmol/L (3.5-5.1); TOTAL PROTEIN, SERUM 5.9 g/dL (6.4-8.2)
[2021-01-01] MEDS: IV 1/2NS 1000 ML 1,000 ML IV PRN ×2 (05:53→19:37)
--- NOTE | 2021-01-01 06:57 | NUR ---
RN NOTE PATIENT OBTUNDED. EET 7/20CM, MECHANICAL VENT, NO CHANGES IN SETTINGS, NO RESP DISTRESS. NO PAIN. TELE MONITOR READS SINUS TACHYCARDIA. CARL PICC LINE RUNNING 1/2NS@80ML/HR. RFA AND R WRIST #20 PATENT AND LFA#20 SL. OH CATHETER OUTPOUT 150CC. GTUBE RUNNING GLUCERNA 1.2@45ML/HR. BED IS LOW AND LOCKED, HOB ELEVATED IN SEMI FOWLERS, SIDE RIALS UP X3.
[2021-01-01 08:01] LABS: ABG BASE EXCESS -6.8 mmol/L; ABG OXYGEN SATURATION 98.6 % (92.0-98.5); ABG PCO2 25.2 mmHg (35.0-45.0); ABG PH 7.428 (7.350-7.450); ABG PO2 152.1 mmHg (75.0-100.0); AaDO2 68.2 mmHg; COHb 0.3 % (0.5-1.5); MetHb 0.6 % (0.0-1.5); O2Hb 97.7 % (94.0-97.0); SITE, ABG Right Radial
[2021-01-01] MEDS: DOCUSATE SODIUM LIQ 100 MG/10 ML UDC GT SCH ×2 (09:00→17:00)
[2021-01-01] MEDS: HYDROGEL DRESSING 90 GM TUBE TP SCH (09:00)
--- NOTE | 2021-01-01 10:00 | NUR ---
RN NOTES DR GUTIERREZ AT THE BEDSIDE SPOKEN TO PT'S SON (ELENA) AND DAUGHTER ( ELMER ) EXTENSIVELY REGARDING POOR PROGNOSIS.
[2021-01-01] MEDS: PANTOPRAZOLE 40 MG/PACK PACK GT SCH ×2 (10:17→18:04)
[2021-01-01] MEDS: FERROUS SULFATE (325 MG) 325 MG/TAB TABLET GT SCH (10:17)
[2021-01-01] MEDS: CHOLECALCIFEROL (VITAMIN D 3) 400 UNIT TABLET GT SCH (10:17)
[2021-01-01] MEDS: VIT B CMPLX 3/FA/VIT C/BIOTIN 1 TAB TABLET GT SCH (10:17)
[2021-01-01] MEDS: FOLIC ACID 1 MG TABLET GT SCH (10:17)
[2021-01-01] MEDS: METOPROLOL TARTRATE 25 MG TABLET GT SCH ×2 (10:45→18:05)
[2021-01-01] MEDS: clonazePAM 0.5 MG TABLET GT SCH ×2 (10:45→21:54)
[2021-01-01] MEDS: Z GUARD REMEDY 2 OZ OINT TP SCH (10:53)
[2021-01-01 11:07] LABS: *SPE A/G RATIO 0.7 (0.7-1.7); *SPE ALPHA-1-GLOBULIN 0.5 g/dL (0.0-0.4); *SPE ALPHA-2-GLOBULIN 0.9 g/dL (0.4-1.0); *SPE BETA GLOBULIN 0.9 g/dL (0.7-1.3); *SPE M-SPIKE Not Observed g/dL (Not Observed)
[2021-01-01] MEDS: INSULIN GLARGINE, 100 UNIT/ML CARTRIDGE SQ SCH ×2 (12:45→21:00)
--- NOTE | 2021-01-01 13:24 | NUR ---
RN NOTES PT'S DAUGHTER AND SON AT THE BEDSIDE VISITING THE PT AND STATED THAT THEY WANT TO GO AHEAD WITH COMFORT CARE AND TERMINAL EXTUBATION TOMORROW MORNING . THEY WILL BE BACK TOMORROW MORNING AND WANT TO BE AT THE BEDSIDE WHEN PT GETS EXTUBATED AND ALSO SPEAK TO PRIMARY CARE IN AM. DR EMMANUEL NOTIFED.
--- NOTE | 2021-01-01 19:30 | NUR ---
RN NOTES RECEIVED PATIENT ORALLY INTUBATED WITH VENT SETTING AC 16 TV 450 AND FIO2 30% AND PEEP 5 TOLERATED WELL SATURATION 100%. LOW GRADE FEVER PRESENT WITH TEMP 99.8 DEG FAHRENHEIT. COOLING MEASURES PROVIDED. SR ON MONITOR. PATIENT IS OBTUNDED OPENS EYES BUT DOESNT TRACK. WITH GTF GLUCERNA 1.2 @ 45 ML/HR INTACT AND PATENT IV SITE ON CARL PICC LINE WITH 1/2 NS @ 80 ML/HR INTACT AND PATENT RFA RIGHT WRIST AND LFA G 20 ALL INTACT AND PATENT. TURN AND REPOSITION PATIENT COMFORTABLE. KEPT PT CLEAN AND DRY. WILL CONTINUE TO MONITOR.
[2021-01-01] MEDS: ACETAMINOPHEN 650 MG/20.3 ML UDC GT PRN (21:54)
[2021-01-02] VITALS (25 sets, daily range): BP systolic 76–156; BP diastolic 39–83
[2021-01-02] MEDS: IPRATROPIUM NEB FS 0.5 MG/2.5 ML AMPUL.NEB NEB SCH ×3 (01:30→07:35)
--- NOTE | 2021-01-02 02:00 | NUR ---
RN NOTES BED BATH COMPLETED. PATIENT TOLERATED IT WELL ORAL CARE PROVIDED AND WOUND DRESSING CHANGED. NO SIGNIFICANT CHANGES NOTED. WITH BM X 2. KEPT PT CLEAN AND COMFORTABLE IN BED.
[2021-01-02] MEDS: MEROPENEM 1 G in IV NS 0.9% 100 ML IV SCH (03:40)
[2021-01-02 04:30] LABS: BASOPHILS % (AUTO) 0.5 % (0.0-2.0); EOSINOPHILS % (AUTO) 1.4 % (0.0-6.0); HEMATOCRIT 23 % (33-45); HEMOGLOBIN 7.5 g/dL (11.5-14.8); LYMPHOCYTES % (AUTO) 21.1 % (20.0-44.0); MEAN CORPUSCULAR HGB CONC 33 g/dl (31.0-36.0); MEAN CORPUSCULAR VOLUME 94 fL (82-100); MONOCYTES # (AUTO) 0.5 K/uL (0.1-1.30); MONOCYTES % (AUTO) 5.7 % (2.0-12.0); NEUTROPHILS # (AUTO) 6.7 K/uL (1.8-8.9); NEUTROPHILS % (AUTO) 71.3 % (43.0-81.0); PLATELET COUNT (AUTO) 535 K/uL (150-450); RED BLOOD CELL COUNT(AUTO) 2.41 MIL/uL (4.0-5.2); WHITE BLOOD COUNT (AUTO) 9.4 K/uL (4.3-11.0)
[2021-01-02 04:43] LABS: ALBUMIN 1.6 g/dL (3.4-5.0); BILIRUBIN,TOTAL 0.2 mg/dL (0.2-1.0); CALCIUM, SERUM 8.1 mg/dL (8.5-10.1); CREATININE 1.7 mg/dL (0.6-1.3); PHOSPHORUS 4.2 mg/dL (2.5-4.9); POTASSIUM 4.8 mmol/L (3.5-5.1); TOTAL PROTEIN, SERUM 5.9 g/dL (6.4-8.2)
[2021-01-02] MEDS: BLOOD SUGAR DIAGNOSTIC 1 EACH STRIP IN SCH ×2 (06:13)
[2021-01-02] MEDS: INSULIN REGULAR, HUMAN 100 UNIT/ML 3 ML VIAL SQ PRN (06:45)
--- NOTE | 2021-01-02 07:01 | NUR ---
RN NOTES PATIENT REMAINED THE SAME ETT AND VENT SETTING TOLERATED WELL. AFEBRILE TMAX 99.8 COOING MEASURES PROVIDED, EFFECTIVE LATEST TEMP 97.8. NSR AND ST ON MONITOR. GTF TOLERATED WITHOUT RESIDUAL. ALL IV SITE INTACT AND PATENT WITH ONGOING IVF D5 1/2NS @ 80 ML/HR . IV ATB TOLERATED WITHOUT ASE. PATIENT REMAINED CLEAN AND DRY. OFFLAODED EXT WITH PILLOWS. CONTINUE TO TURN AND REPOSITION Q2H AND PRN PT COMFORTABLE. WILL ENDORSED CONTINUITY OF CARE TO AM NURSE.
--- NOTE | 2021-01-02 07:30 | NUR ---
RN NOTE RECEIVED PATIENT IN BED, RESTING. RESPONDS TO PAIN STIMULI. BREATHING EVEN AND UNLABORED. VITAL SIGNS WITHIN NORMAL LIMITS. NO SIGNS OF DISTRESS NOTED. CURRENTLY ON ROOM AIR SATURATING AT 100 PERCENT. NOTED WITH CARL MIDLINE, RIGHT HAND PERIPHERAL IV 20 G AND LEFT FOREARM PERIPHERAL IV 20G. NO IV FLUIDS AT THIS TIME. PATIENT NPO. NOTED WITH G-TUBE IN PLACE, NO FEEDING. COMFORT MEASURES IMPLEMENTED. BED IN LOCKED POSITION. FAMILY AT BEDSIDE. INFORMED FAMILY TO USE CALL LIGHT IF ANY ASSISTANCE IS NEEDED. Addendum: 01/02/21 at 2230 by CHIO HANNON RN WRONG ENTRY
[2021-01-02] MEDS: Z GUARD REMEDY 2 OZ OINT TP SCH (09:00)
--- NOTE | 2021-01-02 09:25 | NUR ---
RN NOTES PATIENT SON, AND DAUGHTER IS NEXT TO THE BED , AND MAKE DECISION FOR REMOVE TUBING FOR COMFORT CARE. SELVIN NEW AWARE OF, AND GET TO ORDER MORPHINE 4MG PRIOR EXTUBATION, AND AFTER Q30 MINS MORPHINE 4 MG PRN, AND ATIVAN 2 MG/ML PRN Q2 HR. PRN. ORDER TAKEN AND CARRIED OUT.
[2021-01-02] MEDS: MORPHINE SULFATE INJ 2 MG/ML DISP.SYRIN IV PRN ×3 (09:42→13:25)
--- NOTE | 2021-01-02 09:42 | NUR ---
RN NOTES ADMINISTERED MORPHINE SULFATE PRIOR EXTUBATION ORDERED. WILL FOLLOW UP.
--- NOTE | 2021-01-02 09:45 | NUR ---
RT PER DR ALEXANDER ORDER PATIENT WAS COMPASSIONATELY EXTUBATED. FAMILY AT BEDSIDE. Addendum: 01/02/21 at 1005 by EMMETT SANDERS RT Amended: Links added.
--- NOTE | 2021-01-02 09:45 | NUR ---
RN NOTES PATIENT GET EXTUBATED AT THIS TIME PER SON'S DANETTE, AND DAUGHTERS ELMER"S DECISION FOR COMFORT CARE. EXTUBATED VIA RT. FAMILY NEXT TO THE BEDSIDE AT THIS TIME, BP 156/69, P-104, 02-99, R-21. WILL FOLLOW UP.
[2021-01-02] MEDS: LORAZEPAM INJ 2 MG/ML VIAL IV PRN ×2 (10:42→13:25)
--- NOTE | 2021-01-02 10:42 | NUR ---
RN NOTES ADMINISTERED MORPHINE SULFATE 4MG/ML PRN , AND ATIVAN 2 MG/ML PRN FOR COMFORT CARE. BP 139/81, P-100, R-18.
--- NOTE | 2021-01-02 13:25 | NUR ---
rn notes administered Ativan 2 mg/ml iv push, and morphine sulfate 4 mg/ml iv push. will follow up.
--- NOTE | 2021-01-02 14:05 | NUR ---
RN NOTES TRANSFERRED PATIENT TO THE MED/SURGE ROOM 103. PATIENT COMFORT CARE, NPO. REPORT BEDSIDE GIVEN KAY RN FOLLOW PLAN OF CARE.
--- NOTE | 2021-01-02 14:10 | NUR ---
RN NOTES RECEIVED PT FROM ICU ON COMFORT CARE. NPO, NO OH, ON ROOM AIR. OBTUNDED, OPENS EYES
--- NOTE | 2021-01-02 18:38 | NUR ---
RN NOTES PATIENT COMFORTABLE. NO DISTRESS. CALM. FAMILY AT BEDSIDE. NEEDS ATTENDED. WILL ENDORSE TO NEXT SHIFT FOR NEIL.
--- NOTE | 2021-01-02 19:30 | NUR ---
RN NOTE RECEIVED PATIENT IN BED, RESTING. RESPONDS TO PAIN STIMULI. BREATHING EVEN AND UNLABORED. VITAL SIGNS WITHIN NORMAL LIMITS. NO SIGNS OF DISTRESS NOTED. CURRENTLY ON ROOM AIR SATURATING AT 100 PERCENT. NOTED WITH CARL MIDLINE, RIGHT HAND PERIPHERAL IV 20 G AND LEFT FOREARM PERIPHERAL IV 20G. NO IV FLUIDS AT THIS TIME. PATIENT NPO. NOTED WITH G-TUBE IN PLACE, NO FEEDING. COMFORT MEASURES IMPLEMENTED. BED IN LOCKED POSITION. FAMILY AT BEDSIDE. INFORMED FAMILY TO USE CALL LIGHT IF ANY ASSISTANCE IS NEEDED.
[2021-01-03] MEDS: LORAZEPAM INJ 2 MG/ML VIAL IV PRN (00:31)
--- NOTE | 2021-01-03 00:31 | NUR ---
RN NOTE ADMINISTERED ATIVAN 2GM/ML. PATIENT NOTED WITH ELEVATED HEART RATE AT 114 BPM. ALSO NOTED WITH ELEVATED RESPIRATION AT 24 BREATHS/MIN. OXYGEN SATURATION OF 96 PERCENT. WILL CONTINUE TO MONITOR.
--- NOTE | 2021-01-03 07:22 | NUR ---
RN NOTE NO SIGNIFICANT CHANGES DURING SHIFT. PATIENT OBTUNDED. RESTING. PATIENT ON COMFORT MEASURES ONLY. ON LOW FLOW OXYGEN. KEPT CLEAN AND DRY AT ALL TIMES. REPOSITIONED EVERY 2 HOURS. ENDORSED TO NEXT SHIFT.
--- NOTE | 2021-01-03 07:30 | NUR ---
MS RN OPENING NOTE RECEIVED PT IN BED. PT IS OBTUNDED, NON-VERBAL, AND OPENS EYES. PT ON 2LPM O2 VIA NC SATURATING AT 100%. NO SOB OR S/S OF RESPIRATORY DISTRESS NOTED. IV ACCESS IN CARL PICC LINE, RFA #20, AND LFA #20; INTACT AND PATENT. PT MAINTAINED NPO STATUS. PT NOTED WITH GTUBE IN PLACE, NO FEEDING. NOTED WITH OH CATH IN PLACE. COMFORT MEASURES IMPLEMENTED. SAFETY PRECAUTIONS MAINTAINED. BED IN LOWEST LOCKED POSITION, HOB ELEVATED, SIDE RAILS UP X2. CALL LIGHT AND TABLE WITHIN REACH. WILL CONTINUE WITH PLAN OF CARE.
[2021-01-03] MEDS ORDERED: LORAZEPAM INJ 2 MG/ML VIAL IV PRN (09:00)
[2021-01-03] MEDS: Z GUARD REMEDY 2 OZ OINT TP SCH (09:18)
[2021-01-03] MEDS: MORPHINE SULFATE INJ 2 MG/ML DISP.SYRIN IV PRN ×3 (09:20→22:38)
--- NOTE | 2021-01-03 09:20 | NUR ---
RN NOTE PT NOTED WITH RESPIRATIONS AT 22 BREATHS/MIN AND SPO2 AT 95%. ADMINISTERED MORPHINE 4MG IV PRN PER ORDER. WILL CONTINUE TO MONITOR PT.
[2021-01-03 09:44] LABS: ABG BASE EXCESS -7.2 mmol/L; ABG OXYGEN SATURATION 94.4 % (92.0-98.5); ABG PH 7.406 (7.350-7.450); ABG PO2 72.6 mmHg (75.0-100.0); AaDO2 95.2 mmHg; COHb 0.4 % (0.5-1.5); MetHb 0.3 % (0.0-1.5); O2Hb 93.7 % (94.0-97.0); SITE, ABG Left Brachial; VENT MODE, BG 2L NC
--- NOTE | 2021-01-03 15:15 | NUR ---
RN NOTE PT NOTED WITH HR AT 95 BPM, RESPIRATIONS AT 22 BREATHS/MIN, AND SPO2 AT 95%. ADMINISTERED MORPHINE 4MG IV PRN PER ORDER. WILL CONTINUE TO MONITOR PT.
--- NOTE | 2021-01-03 18:50 | NUR ---
MS RN CLOSING NOTE PT IS IN BED, OBTUNDED, NON-VERBAL, AND OPENS EYES. PT'S SON IS AT BEDSIDE. PT ON 2LPM O2 VIA NC SATURATING AT 100%. NO SOB OR S/S OF RESPIRATORY DISTRESS NOTED. IV ACCESS IN CARL PICC LINE, RFA #20, AND LFA #20; INTACT AND PATENT. PT MAINTAINED NPO STATUS. PT NOTED WITH GTUBE IN PLACE, NO FEEDING. NOTED WITH OH CATH IN PLACE. COMFORT MEASURES IMPLEMENTED. ALL NEEDS HAVE BEEN MET. SAFETY PRECAUTIONS MAINTAINED AT ALL TIMES. BED IN LOWEST LOCKED POSITION, HOB ELEVATED, SIDE RAILS UP X2. CALL LIGHT AND TABLE WITHIN REACH. WILL ENDORSE TO ONCOMING NURSE FOR NEIL.
--- NOTE | 2021-01-03 19:30 | NUR ---
MS RN NOTE RECEIVED PATIENT IN BED, OBTUNDED. PATIENT NON VERBAL, WITH EYES CLOSED. BREATHING EVEN AND UNLABORED. PATIENT ON LOW FLOW OXYGEN. SATURATION OF 99 PERCENT. RESPIRATION 20. SKIN IS WARM AND DRY TO TOUCH. AFEBRILE. BREATHING IS NON-LABORED AT THIS TIME. NOTED WITH IV ACCESS ON LEFT FOREARM 20G, RIGHT FOREARM 20G AND RIGHT UPPER ARM PICC LINE. G-TUBE IN PLACE. PATIENT NPO. OH CATHETER IN PLACE, INTACT. DRAINING KYRA URINE. PATIENT WITH SCD ON BOTH BILATERAL LOWER LEG. BED LOCKED, IN LOWEST POSITION. RELATIVE AT BED SIDE. ANSWERED ALL QUESTIONS. NO CONCERN AT THIS TIME. CALL LIGHT WITHIN REACH TO RELATIVE AND PATIENT.
[2021-01-03 20:00] VITALS: BP 146/66
--- NOTE | 2021-01-03 22:53 | NUR ---
RN NOTE PATIENT NOTED WITH RESPIRATION OF 24 BREATHS PER MINUTE. OXYGEN SATURATION OF 97 PERCENT. NO TEMPERATURE. ADMINISTERED MORPHINE 4 MG/2ML VIA IV PUSH PRN PER MD ORDER. COMFORT MEASURES. WILL CONTINUE TO MONITOR.
[2021-01-04] MEDS: MORPHINE SULFATE INJ 2 MG/ML DISP.SYRIN IV PRN ×3 (02:53→10:03)
--- NOTE | 2021-01-04 02:53 | NUR ---
RN NOTE PATIENT WITH RESPIRATION OF 24 BREATHS PER MINUTE. OXYGEN SATURATION OF 96 PERCENT ON LOW FLOW OXYGEN.. PATIENT WITH EYES OPEN, BOTH PUPIL NON-REACTIVE . NOTED WITH GRIMACING DURING LINEN CHANGE. ADMINISTERED MORPHINE 4MG/2ML VIA IV PUSH PRN PER MD ORDER. COMFORT MEASURES OBSERVED. WILL CONTINUE TO MONITOR.
[2021-01-04 04:00] VITALS: BP 149/80
--- NOTE | 2021-01-04 07:10 | NUR ---
RN NOTE NO SIGNIFICANT CHANGES DURING SHIFT. PATIENT ON COMFORT MEASURES. KEPT CLEAN AND DRY. ASSISTED WITH TURNING AND REPOSITIONING. ENDORSED TO NEXT SHIFT FOR CONTINUITY OF CARE.
--- NOTE | 2021-01-04 07:23 | NUR ---
RN OPENING NOTE PATIENT IN BED, SLEEPING. OBTUNDED AT THIS TIME. PATIENT ON 2L O2 NC WITH NO SIGNS OF LABORED BREATHING AT THIS TIME. R UPPER ARM PICC LINE, L FA PIV AND R FA PIV IN PLACE AND PATENT. BED LOCKED AND IN LOWEST POSITION, SIDE RAILS UPX3, CALL LIGHT WITHIN REACH. ALL SAFETY MEASURES IMPLEMENTED.
--- NOTE | 2021-01-04 07:59 | NUR ---
RN NOTE PATIENT RESPIRATION 22 BREATH/MIN, MOANING AND FACING GRIMACING NOTED. 4MG OF MORPHINE ADMINISTERED. WILL CONTINUE TO MONITOR.
[2021-01-04 08:00] VITALS: BP 128/72
[2021-01-04] MEDS: Z GUARD REMEDY 2 OZ OINT TP SCH (09:48)
[2021-01-04 12:00] VITALS: BP 105/63
[2021-01-04] MEDS ORDERED: HYDROMORPHONE INJ 2 MG/ML DISP.SYRIN IV STA (12:35)
[2021-01-04] MEDS: HYDROMORPHONE MDV 50 MG in IV D5W 225 ML IV PRN (14:53)
--- NOTE | 2021-01-04 14:55 | NUR ---
RN NOTE DILAUDID DRIP AT 10CC/HR INITIATED PER ORDER.
--- NOTE | 2021-01-04 15:32 | NUR ---
RN NOTE PATIENT'S RESPIRATORY RATE AT 16/MIN. DILAUDID DRIP REMAINS AT 10CC/HR PER ORDER. WILL CONTINUE TO MONITOR.
--- NOTE | 2021-01-04 18:12 | NUR ---
RN NOTE PATIENT IN BED, APPEARS COMFORTABLE. SELVIN NEW ORDERED AN INCREASE IN DILAUDID DRIP TO 30CC (6MG DILAUDID) PER HOUR AND DISCONTINUATION OF VITAL SIGNS.
--- NOTE | 2021-01-04 18:47 | NUR ---
RN CLOSING NOTE PATIENT IN BED, SLEEPING. UNAROUSABLE AT THIS TIME. PATIENT ON 1L O2 NC WITH NO SIGNS OF LABORED BREATHING. PATIENT APPEARS COMFORTABLE WITH NO SIGNS OF PAIN NOTED. DILAUDID DRIP RUNNING AT 30CC/HR (6MG DILAUDID/HR) PER DNP ORDER. CARL PICC LINE, LFA AND RFA IV ACCESS IN PLACE AND POTENT. OH CATH IN PLACE. BED LOCKED AND IN LOWEST POSITION, 3 SIDE RAILS UP, CALL LIGHT WITHIN REACH. ALL SAFETY MEASURES IMPLEMENTED. WILL ENDORSE TO [facility]CHE OPERATOR NURSE.
--- NOTE | 2021-01-04 20:00 | NUR ---
RN NOTE RECEIVED PATIENT IN BED, WITH EYE CLOSE . UNAROUSABLE AT THIS TIME. PATIENT ON 1L O2 NC , ON COMFORT MEASURES .NO SOB NO DISTRESS NOTED BREATHING EVEN AND UNLABORED PTS IS NPO ORDERED . APPEARS COMFORTABLE WITH NO SIGNS OF PAIN NOTED.ON DILAUDID DRIP RUNNING AT 30CC/HR (6MG DILAUDID/HR) ORDERED CARL PICC LINE, LFA AND RFA IV ACCESS IN PLACE AND PATENT. OH CATH IN PLACE. BED LOCKED AND IN LOWEST POSITION, 3 SIDE RAILS UP, CALL LIGHT WITHIN REACH. ALL SAFETY MEASURES IMPLEMENTED.WILL CONTINUE TO MONITOR PTS .
[2021-01-04] MEDS ORDERED: KEY,NONCONTROL,TO KEEP IN PYXI 1 EA MC ONE (21:02)
[2021-01-05] VITALS (23 sets, daily range): BP systolic 63–186; BP diastolic 37–80
[2021-01-05] MEDS ORDERED: KEY,NONCONTROL,TO KEEP IN PYXI 1 EA MC ONE ×4 (01:02→17:42)
[2021-01-05] MEDS: HYDROMORPHONE MDV 50 MG in IV D5W 225 ML IV PRN ×2 (01:07→10:36)
--- NOTE | 2021-01-05 06:56 | NUR ---
RN CLOSING NOTE PATIENT IN BED ASLEEP, UNAROUSABLE, PATIENT ON 1L VIA NC, WITH OH CATHETER CONNECTED TO URINE BAG DRAINING WELL WITH YELLOW URINE OUTPUT, WITH CARL PICC LINE FLUSHES WELL CONNECTED TO CONTINOUS DILAUDID DRIP AT 6MG/30ML PER HOUR. PATIENT ON COMFORT CARE. NO CHANGES IN CONDITION. HOB ELEVATED, BOTH SIDERAILS UP FOR SAFETY, CALL LIGHT WITHIN REACH. ALL NEEDS ATTENDED. WILL CONTINUE TO MONITOR CLOSELY. ENDORSED TO INCOMING NURSE.
[2021-01-05] MEDS: Z GUARD REMEDY 2 OZ OINT TP SCH (09:00)
[2021-01-05] MEDS: LORAZEPAM INJ 2 MG/ML VIAL IV PRN ×2 (13:58→16:31)
[2021-01-05] MEDS ORDERED: D5W IV PRN (16:00)
[2021-01-05] MEDS ORDERED: HYDROMORPHONE IV PRN (16:00)
--- NOTE | 2021-01-05 17:30 | NUR ---
FAMILY AT BEDSIDE WITH AND DISCUSSING WITH DR. NJ NEW PATIENT PROGNOSIS,FAMILY CHANGE MIND AND WANTED FULL CODE.TRANSFERRED TO ICU ORDERED.
--- NOTE | 2021-01-05 17:40 | NUR ---
DRY WALL SPRAYER RECEIVED PT FROM 1ST FLOOR M/S FOR RESP FAILURE AND ACUTE INTUBATION. PT PREVIOUSLY COMFORT CARE WITH DILAUDID INFUSION. FAMILY REVERSED COMFORT CARE NECESSITATING INTUBATION FOR AIRWAY PROTECTION. NO SEDATION USED FOR INTUBATION. SUCCESSFULLY INTUBATED BY DR NJ NEW. CXR OBTAINED AND SEEN BY DR NEW.
[2021-01-05] MEDS ORDERED: PIPERACILLIN /TAZOBACTAM 3.375 G in IV D5W 50 ML IV SCH (18:00)
[2021-01-05] MEDS ORDERED: IV NS 0.9% 2,000 ML IV ONE (18:00)
--- NOTE | 2021-01-05 18:09 | NUR ---
RN NOTE PER SON FRANKY CHANGE CODE STATUS FROM DNR TO FULL CODE. PT TRANSFERRED TO ICU.
[2021-01-05] MEDS ORDERED: DEXTROSE 50%-WATER 50 ML DISP.SYRIN IV PRN (18:30)
[2021-01-05] MEDS ORDERED: ACETAMINOPHEN 650 MG/20.3 ML UDC NG PRN (18:30)
--- NOTE | 2021-01-05 18:30 | NUR ---
SECURITIES AND REAL ESTATE DIRECTOR PT HYPOTENSIVE. 1 LITER NS BOLUS STARTED ORDERED BY DR NEW. PRESSORS TO FOLLOW IF NOT ADEQUATE.
[2021-01-05] MEDS: IV LR 1000 ML 1,000 ML IV PRN (18:40)
[2021-01-05] MEDS: NOREPINEPHRINE 8 MG in IV NS 0.9% 242 ML IV PRN (19:11)
[2021-01-05] MEDS: ENOXAPARIN SODIUM 30 MG/0.3 ML DISP.SYRIN SQ SCH (19:17)
--- NOTE | 2021-01-05 19:35 | NUR ---
ICU/CASINO FLOORPERSON RECIEVED REPORT FROM DAY SHIFT NURSE. SEE FLOWSHEET FOR ASSESSMENT, THERE ARE A FEW SKIN ISSUES THAT ARE ADDRESSED ON THE FLOWSHEET, ALONG WITH INTERVENTIONS TO EACH. THERE ARE IV'S THAT ARE ADDRESSED, ALONG WITH THE TITRATIONS TO LEVO. PT WAS TURNED AND REPOSITIONED FOR COMFORT AND CARE.WILL CONTINUE TO MONITOR THIS PT. NO ACUTE DISTRESS SEEN AT THIS TIME.
[2021-01-05] MEDS: ZOSYN IVPB 2.25 G in IV D5W 50ml IV SCH (20:18)
[2021-01-05 20:36] LABS: ABG BASE EXCESS -7.8 mmol/L; ABG OXYGEN SATURATION 95.8 % (92.0-98.5); ABG PCO2 34.3 mmHg (35.0-45.0); ABG PH 7.324 (7.350-7.450); ABG PO2 82.8 mmHg (75.0-100.0); AaDO2 90.8 mmHg; COHb 1.1 % (0.5-1.5); MetHb 0.3 % (0.0-1.5); O2Hb 94.5 % (94.0-97.0); PEEP,BG 0 cm H2O; SITE, ABG Left Brachial; VENT MODE, BG AC 16 400 30% +0; VT, ABG 400 mL
--- NOTE | 2021-01-05 20:45 | NUR ---
ICU/INK MAKER POST INTUBATION ABG WAS DONE, RESULTS GIVEN TO CHARGE NURSE. NO CRITICAL VALUES.
[2021-01-05] MEDS ORDERED: ENOXAPARIN SODIUM 30 MG/0.3 ML DISP.SYRIN SQ SCH (21:00)
--- NOTE | 2021-01-05 23:00 | NUR ---
ICU/FARMWORKER PULLET FARM SPUTUM CULTURE WAS COLLECTED BY RT. LAB CALLED FOR MILL OPERATOR HELPER.
[2021-01-06] VITALS (81 sets, daily range): BP systolic 86–150; BP diastolic 44–70
--- NOTE | 2021-01-06 00:15 | NUR ---
ICU/LEGAL RECRUITER CHARGE NURSE WAS ACTIVELY TITRATING THE LEVO FOR STABLE BLOOD PRESSURE. WILL CONTINUE TO MONITOR THIS PT'S BLOOD PRESSURE.
[2021-01-06] MEDS: BLOOD SUGAR DIAGNOSTIC 1 EACH STRIP IN SCH ×5 (00:36→23:22)
[2021-01-06] MEDS: GLUCERNA 1.2 1,000 ML BOTTLE GT PRN (00:45)
--- NOTE | 2021-01-06 01:30 | NUR ---
ICU/MANUAL WRITER G/TUBE FEEDING WAS STARTED. WILL CONTINUE TO MONITOR THIS PT'S BLOOD PRESSURE.
[2021-01-06] MEDS: ZOSYN IVPB 2.25 G in IV D5W 50ml IV SCH ×4 (02:11→19:49)
--- NOTE | 2021-01-06 02:30 | NUR ---
ICU/BARREL LATHE OPERATOR INSIDE PT WAS GIVEN ORAL CARE ALONG WITH AM CARE. PT REMAINS ON CURRENT VENT SETTINGS WITH SATURATION AT 99-100%. PT WAS TURNED AND REPOSITIONED FOR COMFORT AND CARE. WILL CONTINUE TO MONITOR THIS PT. NO ACUTE DISTRESS SEEN AT THIS TIME.
[2021-01-06] MEDS: IV LR 1000 ML 1,000 ML IV PRN ×3 (03:49→18:51)
--- NOTE | 2021-01-06 04:30 | NUR ---
ICU/YARN CONDITIONER AM LABS ALONG WITH CHEST XRAY DONE, AWAIT FOR ANY ABNORMAL RESULTS.
[2021-01-06 05:52] LABS: BASOPHILS # (AUTO) 0.1 K/uL (0.0-0.2); BASOPHILS % (AUTO) 0.5 % (0.0-2.0); EOSINOPHILS % (AUTO) 0.8 % (0.0-6.0); HEMATOCRIT 23 % (33-45); HEMOGLOBIN 7.5 g/dL (11.5-14.8); MEAN CORPUSCULAR HGB CONC 32 g/dl (31.0-36.0); MEAN CORPUSCULAR VOLUME 96 fL (82-100); MONOCYTES # (AUTO) 0.4 K/uL (0.1-1.30); MONOCYTES % (AUTO) 2.8 % (2.0-12.0); NEUTROPHILS # (AUTO) 11.1 K/uL (1.8-8.9); NEUTROPHILS % (AUTO) 80.9 % (43.0-81.0); PLATELET COUNT (AUTO) 533 K/uL (150-450); RED BLOOD CELL COUNT(AUTO) 2.44 MIL/uL (4.0-5.2); WHITE BLOOD COUNT (AUTO) 13.7 K/uL (4.3-11.0)
--- NOTE | 2021-01-06 07:29 | NUR ---
RN NOTE PATIENT IS IN BED WITH HOB AT SEMI FOWLERS POSITION. PATIENT IS ON VENT WITH NO SIGNS OF LABORED BREATHING. PATIENT IS OBTUNDED. GTUBE IS IN PLACE. LFA AND CARL PICC IV ACCESS ARE PATENT AND INTACT. BED IS LOCKED IN THE LOWEST POSITION, 3 GUARD RAILS RAISED, CALL SKY WITHIN REACH, AND ALL HOSPITAL SAFETY PRECAUTIONS ARE BEING FOLLOWED. WILL CONTINUE TO MONITOR THROUGHOUT SHIFT.
[2021-01-06 07:42] LABS: ALBUMIN 1.5 g/dL (3.4-5.0); BILIRUBIN,TOTAL 0.4 mg/dL (0.2-1.0); CALCIUM, SERUM 8.1 mg/dL (8.5-10.1); CREATININE 1.7 mg/dL (0.6-1.3); MAGNESIUM 1.9 mg/dL (1.8-2.4); PHOSPHORUS 4.5 mg/dL (2.5-4.9); POTASSIUM 4.9 mmol/L (3.5-5.1); TOTAL PROTEIN, SERUM 5.8 g/dL (6.4-8.2)
--- NOTE | 2021-01-06 07:45 | NUR ---
RN NOTE NOTIFIED DR. NEW OF 01/06 0500 CHEST XRAY FINDINGS.
[2021-01-06] MEDS: Z GUARD REMEDY 2 OZ OINT TP SCH (08:40)
[2021-01-06] MEDS: INSULIN REGULAR, HUMAN 100 UNIT/ML 3 ML VIAL SQ PRN ×2 (11:36→23:23)
--- NOTE | 2021-01-06 13:45 | NUR ---
ET-TUBE PULLED BACK TO 21CM AT LIP.
[2021-01-06] MEDS: NOREPINEPHRINE 8 MG in IV NS 0.9% 242 ML IV PRN (19:01)
--- NOTE | 2021-01-06 19:07 | NUR ---
RN NOTE PATIENT IS IN BED WITH HOB AT SEMI FOWLERS POSITION. PATIENT IS ON VENT WITH NO SIGNS OF LABORED BREATHING. PATIENT IS OBTUNDED. GTUBE IS IN PLACE. LFA AND CARL PICC IV ACCESS ARE PATENT AND INTACT. BED IS LOCKED IN THE LOWEST POSITION, 3 GUARD RAILS RAISED, CALL SKY WITHIN REACH, AND ALL HOSPITAL SAFETY PRECAUTIONS ARE BEING FOLLOWED. ALL DUE MEDS GIVEN AND PATIENT REMAINED STABLE THROUGHOUT SHIFT. WILL ENDORSE TO EXHAUST EMISSIONS AUTOMOTIVE TECHNICIAN RN.
--- NOTE | 2021-01-06 20:30 | NUR ---
ICU/PROVIDER RELATIONS SPECIALIST OLD HEPLOCKS WERE FLUSHED WHICH WERE 2X #20G TO THE LEFT WRIST, THESE WERE D/C. ALSO THERE WAS A #20G TO THE LEFT WRIST, THIS TOO WAS D/C'D. PT CURRENTLY HAS RIGHT UPPER ARM PICC.
--- NOTE | 2021-01-06 21:30 | NUR ---
ICU/RESOURCE ROOM TEACHER PT'S BLOOD PRESSURE WAS STABLE THROUGH THE LAST FEW CYCLES, NOTIFED CHARGE NURSE WHO THEN DECREASED DOWN THE LEVO TO 0.02. CURRENT VITAL SIGNS ARE 95, 16, 98%, 123/53. WILL CONTINUE TO MONITOR THIS PT .
[2021-01-06] MEDS: ENOXAPARIN SODIUM 30 MG/0.3 ML DISP.SYRIN SQ SCH (22:47)
[2021-01-07] VITALS (84 sets, daily range): BP systolic 91–181; BP diastolic 45–104
--- NOTE | 2021-01-07 00:33 | NUR ---
ICU/STORAGE BATTERY INSPECTOR MIDNIGHT TEMP. 100.2 AX, PT WAS GIVEN TYLENOL VIA G/TUBE. ALSO MIDNIGHT BLOOD SUGAR WAS 137, WHICH WAS COVERED WITH 2 UNITES REG. INSULIN. WILL CONTINUE TO CLOSELY MONITOR TEMP AND BLOOD SUGAR.
[2021-01-07] MEDS: ZOSYN IVPB 2.25 G in IV D5W 50ml IV SCH ×4 (02:00→20:28)
--- NOTE | 2021-01-07 02:30 | NUR ---
ICU/REGIONAL COMMERCIAL SALES MANAGER PT WAS GIVEN ORAL CARE ALONG WITH AM CARE, PT TOLERATED THIS WELL. PT REMAINS ON CURRENT VENT SETTINGS WITH SATURATION AT 99-100%. PT WAS TURNED AND REPOSITIONED FOR COMFORT AND CARE. WILL CONTINUE TO MONITOR THIS PT. NO ACUTE DISTRESS SEEN AT THIS TIME.
[2021-01-07] MEDS: GLUCERNA 1.2 1,000 ML BOTTLE GT PRN (03:43)
[2021-01-07] MEDS: IV LR 1000 ML 1,000 ML IV PRN ×3 (03:45→21:53)
--- NOTE | 2021-01-07 04:10 | NUR ---
ICU/ACCOUNTS ADMINISTRATOR LEVO WAS TURNED OFF BY PHOTOGRAPHER'S MODEL NURSE FOR STABLE BLOOD PRESSURE. WILL CONTINUE TO CLOSELY MONITOR THIS PT'S BLOOD PRESSURE.
[2021-01-07 05:17] LABS: BASOPHILS # (AUTO) 0.1 K/uL (0.0-0.2); BASOPHILS % (AUTO) 0.4 % (0.0-2.0); EOSINOPHILS % (AUTO) 0.6 % (0.0-6.0); HEMATOCRIT 22 % (33-45); HEMOGLOBIN 7.3 g/dL (11.5-14.8); LYMPHOCYTES # (AUTO) 3.3 K/uL (0.8-4.8); LYMPHOCYTES % (AUTO) 25.9 % (20.0-44.0); MEAN CORPUSCULAR HGB CONC 33 g/dl (31.0-36.0); MEAN CORPUSCULAR VOLUME 93 fL (82-100); MONOCYTES # (AUTO) 0.6 K/uL (0.1-1.30); MONOCYTES % (AUTO) 4.4 % (2.0-12.0); NEUTROPHILS # (AUTO) 8.8 K/uL (1.8-8.9); NEUTROPHILS % (AUTO) 68.7 % (43.0-81.0); PLATELET COUNT (AUTO) 538 K/uL (150-450); RED BLOOD CELL COUNT(AUTO) 2.39 MIL/uL (4.0-5.2); WHITE BLOOD COUNT (AUTO) 12.8 K/uL (4.3-11.0)
[2021-01-07] MEDS: BLOOD SUGAR DIAGNOSTIC 1 EACH STRIP IN SCH ×4 (05:23→23:28)
[2021-01-07 05:24] LABS: CALCIUM, SERUM 8.3 mg/dL (8.5-10.1); CREATININE 1.6 mg/dL (0.6-1.3); MAGNESIUM 1.8 mg/dL (1.8-2.4); PHOSPHORUS 3.7 mg/dL (2.5-4.9); POTASSIUM 4.8 mmol/L (3.5-5.1)
--- NOTE | 2021-01-07 05:37 | NUR ---
ICU/TARGET PROTECTION SPECIALIST AM LABS WERE DONE ALONG WITH CHEST XRAY. AWAIT FOR ANY ABNORMAL RESULTS.
--- NOTE | 2021-01-07 08:00 | NUR ---
RN NOTES RECEIVED PATIENT ETT/VENT FIO2-30, PEEP-0, AC-16. PATIENT TOLERATING SETTING WELL. RESIDUAL IS 60ML FROM GT, NO ACUTE RESPIRATORY DISTRESS. PATIENT NEEDS ATTENDED AND ANTICIPATED, SUCTION, MOUTH CARE DONE. OH DRAINING VIA GRAVITY LIGHT YELLOW OUTPUT. DUE MEDICATION ADMINISTERED. WILL FOLLOW UP.
[2021-01-07] MEDS: Z GUARD REMEDY 2 OZ OINT TP SCH (08:34)
[2021-01-07 09:04] LABS: LYMPHOCYTES % (MANUAL) 16 % (16-48); MONOCYTES % (MANUAL) 10 % (0-11.0); NEUTROPHILS % (MANUAL) 74 (42-76)
[2021-01-07] MEDS: INSULIN REGULAR, HUMAN 100 UNIT/ML 3 ML VIAL SQ PRN ×3 (12:44→23:29)
--- NOTE | 2021-01-07 12:49 | NUR ---
rn notes bs-134 mg/dl coverage given, assist turn and reposition q 2 hr. infusing LR @125ml/hr on CARL PICC line, intact, assist turn and reposition q 2 hr, will follow up.
--- NOTE | 2021-01-07 14:40 | NUR ---
rn notes UA specimen collected from catheter port, called lab to picker operator.
[2021-01-07 15:20] LABS: BILIRUBIN,URINE NEGATIVE (NEGATIVE); COLOR,URINE YELLOW (YELLOW); LEUKOCYTE ESTERASE ,URINE MODERATE (NEGATIVE); NITRITE, URINE NEGATIVE (NEGATIVE); PROTEIN,URINE 30 mg/dl (NEGATIVE); UGLUCOSE NEGATIVE (NEGATIVE); UROBILINOGEN,URINE 0.2 EU/dL (0.2)
[2021-01-07 15:33] LABS: BACTERIA,URINE 3+ /HPF (None Seen); COARSE GRANULAR CASTS,URINE Few /LPF (None Seen); SQUAMOUS EPITHELIAL CELL,UR 0-2 /HPF (None Seen); WBC,URINE 81-100 /HPF (0-3)
--- NOTE | 2021-01-07 18:30 | NUR ---
RN NOTES PM CARE DONE, SUCTION, BS-133MG/DL, COVERAGE GIVEN, RUNNING GLUCERNA 20CC/HR NO RESIDUAL, INFUSING LR @125 ML/HR INTACT ON CARL PICC LINE. ASSIST TURN AND REPOSITION Q 2 HR. FAMILY NEXT TO THE BED. ENDORSED ONCOMING NURSE FOLLOW PLAN OF CARE.
--- NOTE | 2021-01-07 20:00 | NUR ---
RN NOTE RECEIVED PT, INTUBATED CONNECTED TO MECH VENT. NO SIGNS OF DISTRESS NOTED. PT OPEN EYES, DOES NOT FOLLOW ANY COMMANDS. GT IN PLACE, NOTED WITH 150CC GREENISH GASTRIC RESIDUALS, HELD GT FEEDING, KEPT HOB ELEVATED. ON IV LR AT 125 ML/HR, CARL PICC PATENT AND INTACT. OH IN PLACE, DRAINING WELL. ALL SAFETY IN PLACE. WOUND DRESSING ARE CLEAN DRY AND INTACT. WILL CONTINUE TO MONITOR.
[2021-01-07] MEDS: ENOXAPARIN SODIUM 30 MG/0.3 ML DISP.SYRIN SQ SCH (21:46)
--- NOTE | 2021-01-07 22:55 | NUR ---
RN NOTE GASTRIC RESIDUAL DECREASED TO 75CC. FEEDING KEPT ON HOLD. WILL CONTINUE TO MONITOR.
[2021-01-08] VITALS (40 sets, daily range): BP systolic 123–164; BP diastolic 58–86
--- NOTE | 2021-01-08 01:33 | NUR ---
RN NOTE PT NOTED WITH VOMITING, WITH HOB ELEVATED. FEEDING KEPT ON HOLD. GT RESIDUALS NOW 30CC. NOTIFIED BROADCAST FIELD SUPERVISOR IVANNA RUSSELL. ORDERED ZOFRAN IVP PRN. WILL CONTINUE TO MONITOR.
[2021-01-08] MEDS: ONDANSETRON HCL/PF 4 MG/2 ML VIAL IV PRN ×2 (01:40→22:29)
[2021-01-08] MEDS: ZOSYN IVPB 2.25 G in IV D5W 50ml IV SCH ×4 (02:07→21:23)
[2021-01-08] MEDS: GLUCERNA 1.2 1,000 ML BOTTLE GT PRN (03:42)
--- NOTE | 2021-01-08 04:00 | NUR ---
RN NOTE GT RESIDUALS NOTED 20ML. NO VOMITING NOTED AFTER ZOFRAN GIVEN, RESTARTED GT FEEDING AT 20ML/HR. WILL CONTINUE TO MONITOR.
[2021-01-08 04:56] LABS: BASOPHILS # (AUTO) 0.1 K/uL (0.0-0.2); BASOPHILS % (AUTO) 0.5 % (0.0-2.0); EOSINOPHILS % (AUTO) 0.2 % (0.0-6.0); HEMATOCRIT 23 % (33-45); HEMOGLOBIN 7.5 g/dL (11.5-14.8); LYMPHOCYTES # (AUTO) 1.6 K/uL (0.8-4.8); LYMPHOCYTES % (AUTO) 15.2 % (20.0-44.0); MEAN CORPUSCULAR HGB CONC 33 g/dl (31.0-36.0); MEAN CORPUSCULAR VOLUME 93 fL (82-100); MONOCYTES # (AUTO) 0.4 K/uL (0.1-1.30); MONOCYTES % (AUTO) 3.8 % (2.0-12.0); NEUTROPHILS # (AUTO) 8.6 K/uL (1.8-8.9); NEUTROPHILS % (AUTO) 80.3 % (43.0-81.0); PLATELET COUNT (AUTO) 497 K/uL (150-450); RED BLOOD CELL COUNT(AUTO) 2.46 MIL/uL (4.0-5.2); WHITE BLOOD COUNT (AUTO) 10.7 K/uL (4.3-11.0)
[2021-01-08 05:11] LABS: CALCIUM, SERUM 8.2 mg/dL (8.5-10.1); CREATININE 1.5 mg/dL (0.6-1.3); MAGNESIUM 1.5 mg/dL (1.8-2.4); PHOSPHORUS 3.8 mg/dL (2.5-4.9); POTASSIUM 4.9 mmol/L (3.5-5.1)
[2021-01-08] MEDS: BLOOD SUGAR DIAGNOSTIC 1 EACH STRIP IN SCH ×3 (05:44→17:17)
[2021-01-08] MEDS: INSULIN REGULAR, HUMAN 100 UNIT/ML 3 ML VIAL SQ PRN ×2 (05:44→17:17)
[2021-01-08] MEDS: IV LR 1000 ML 1,000 ML IV PRN ×2 (06:01→17:08)
--- NOTE | 2021-01-08 06:06 | NUR ---
RT NOTE PT INTUBATED VIA 7.0 ETT @ 21 CM LIP LINE. ET TUBE SECURED AND PATENT. BILATERAL CHEST RISE NOTED. ALARMS ARE SET AND AUDIBLE. VENT IS PLUGGED INTO RED OUTLET. PT SXD W NO ADVERSE REACTIONS. NO RESP DISTRESS NOTED T/O SHIFT. Addendum: 01/08/21 at 0609 by OLEGARIO HER RT Amended: Links added. Addendum: 01/08/21 at 0613 by OLEGARIO HER RT 7.5 ETT
--- NOTE | 2021-01-08 06:47 | NUR ---
RN NOTE PT TOLERATING VENT SETTINGS. NO SIGNS OF DISTRESS WERE NOTED. NO CHANGES IN LOC, NOT FOLLOWING ANY COMMANDS, UNABLE TO COMMUNICATE. RECHECKED GT RESIDUAL, NOTED 200 ML OF GREENISH GASTRIC RESIDUALS. HELD GT FEEDING, KEPT HOB ELEVATED. SR ON TELE NOW, WITH SOME SINUS TACH NOTED DURING NIGHT. OH DRAINING WELL. WOUND TX WERE DONE, TURNED AND REPOSITIONED. REMAIN AFEBRILE DURING SHIFT.WILL ENDORSE TO NEXT SHIFT NURSE FOR NEIL. Addendum: 01/08/21 at 0654 by MEETA BISHOP RN FSBS AT 129, NO INSULIN COVERAGE GIVEN.
--- NOTE | 2021-01-08 07:14 | NUR ---
RN NOTE RECEIVED PT ON BED, INTUBATED , CONNECTED TO VENT , TOLERAING WELL, NO DISTRESS NOTED, PT OPEN EYES, DOES NOT FOLLOW ANY COMMANDS. 200 CC TF RESIDUAL NOTED, TF ON HOLD AT THIS TIME, ON IV LR AT 125 ML/HR, CARL PICC PATENT AND INTACT. OH IN PLACE, DRAINING WELL. ALL SAFETY IN PLACE. WOUND DRESSING ARE CLEAN DRY AND INTACT. WILL CONTINUE TO MONITOR.
[2021-01-08] MEDS: Z GUARD REMEDY 2 OZ OINT TP SCH (08:10)
[2021-01-08] MEDS: Magnesium 1GM/D5W 100ML PREMIX 100 ML IV SCH ×2 (11:16→12:18)
[2021-01-08] MEDS ORDERED: ROCURONIUM BROMIDE 50 MG/5 ML IV ONE (12:00)
[2021-01-08] MEDS ORDERED: MIDAZOLAM HCL 2 MG/2ML VIAL ONE (15:17)
--- NOTE | 2021-01-08 15:30 | NUR ---
ICU/RN NEW TRACHEOSTOMY TUBE PLACED BY NJ NEW DNP AND DR THURMAN AT BEDSIDE.VERSED 2 MG IV GIVEN AND 60 MG ROCURONIUM IV GIVEN ORDERED.BP STABLE.NO S/S OF BLEEDING NOTED.CONTINUE MONITORING.
--- NOTE | 2021-01-08 15:57 | NUR ---
RT NOTE PATIENT TRACHED BEDSIDE BY DR. NEW AND DR. FRANCO. G[place] #8 PATENT AND SECURE. NO SUBCUTANEOUS EMPHYSEMA NOTED IN TRACH SITE. EQUAL BILATERAL CHEST RISE AND MINIMAL BLEEDING OBSERVED. VENT PLUGGED IN RED OUTLET. ALARMS ON AND AUDIBLE. BVM AT [facility]. WILL CONTINUE TO MONITOR. Addendum: 01/08/21 at 1603 by YASSINE DANIELS RT Amended: Links added.
--- NOTE | 2021-01-08 18:06 | NUR ---
RN NOTES TRACH CARE DONE , NO SIGNIFICANT CHANGES NOTED ON THIS SHIFT, TF AT 10CC/HR RUNNING , DUE TO HIGH RESIDUAL , SR UP x3, CALL LIGHT WITHIN EASY REACH, BED LOCKED AND IN LOWEST POSITION, WILL ENDORSE TO CELERY CUTTER NURSE FOR CONTINUITY OF CARE .
--- NOTE | 2021-01-08 20:00 | NUR ---
MILITARY ANALYST. RECEIVED THE PT REST ON THE BED. TRACH TO VENT CONNECTED. PT IS VOMITING. HOB ELEVATED. GT FEEDING 10 ML/H. TEMP 99. FC PATENT. URINE DRAINING. IV RT UPPER ARM PICC LINE . LR 125 ML/H. WILL CONTINUE TO MONITOR.
--- NOTE | 2021-01-08 20:12 | NUR ---
RT NOTE Pt rec'd trached on [facility] vent on AC mode settings as charted. Pt shows no signs of resp distress or sob. Trach is patent and secured. Pt sx'd for thick mod amt of blood tinged secretions. Alarms are set and audible. Vent plugged into red outlet. Ambu bag bedside. Will continue to monitor closely. Addendum: 01/08/21 at 2014 by ZAC RUSSELL RT Amended: Links added.
[2021-01-08] MEDS: ENOXAPARIN SODIUM 30 MG/0.3 ML DISP.SYRIN SQ SCH (21:25)
--- NOTE | 2021-01-08 23:00 | NUR ---
INTENSIVIST. PT WAS VOMITED 3 TIMES. GT FEEDING 10 ML/H. GT FEEING HOLD. RESIDUAL 100M;L. ZOFRAN IV GIVEN PER MD ORDERED.WILL CONTINUE TO MONITOR.
[2021-01-09] VITALS (25 sets, daily range): BP systolic 118–179; BP diastolic 62–92
[2021-01-09] MEDS: BLOOD SUGAR DIAGNOSTIC 1 EACH STRIP IN SCH ×5 (00:39→23:47)
[2021-01-09] MEDS: ZOSYN IVPB 2.25 G in IV D5W 50ml IV SCH ×4 (02:06→20:05)
[2021-01-09] MEDS: IV LR 1000 ML 1,000 ML IV PRN ×2 (02:12→11:58)
[2021-01-09 04:45] LABS: BASOPHILS % (AUTO) 0.4 % (0.0-2.0); EOSINOPHILS % (AUTO) 0.1 % (0.0-6.0); HEMATOCRIT 22 % (33-45); HEMOGLOBIN 7.4 g/dL (11.5-14.8); LYMPHOCYTES % (AUTO) 18.7 % (20.0-44.0); MEAN CORPUSCULAR HGB CONC 33 g/dl (31.0-36.0); MEAN CORPUSCULAR VOLUME 94 fL (82-100); MONOCYTES # (AUTO) 0.4 K/uL (0.1-1.30); MONOCYTES % (AUTO) 3.7 % (2.0-12.0); NEUTROPHILS # (AUTO) 8.1 K/uL (1.8-8.9); NEUTROPHILS % (AUTO) 77.1 % (43.0-81.0); PLATELET COUNT (AUTO) 434 K/uL (150-450); RED BLOOD CELL COUNT(AUTO) 2.39 MIL/uL (4.0-5.2); WHITE BLOOD COUNT (AUTO) 10.5 K/uL (4.3-11.0)
[2021-01-09 05:02] LABS: CALCIUM, SERUM 8.2 mg/dL (8.5-10.1); CREATININE 1.5 mg/dL (0.6-1.3); PHOSPHORUS 3.8 mg/dL (2.5-4.9); POTASSIUM 4.6 mmol/L (3.5-5.1)
--- NOTE | 2021-01-09 06:43 | NUR ---
agricultural researcher. am care given. remaining same vent settings tolerated well./ sat 98%. no acute distress noted. typing pool supervisor showing s tach. hob elevated. fc patent urine draining. ivf lr 125 ml/h. turn and reposition q2h. will continue to monitor vitals.
--- NOTE | 2021-01-09 07:00 | NUR ---
RN NOTES RECEIVED PT ON BED, OBTUNDED, OPEN EYES TO PAINFUL STIMULI , TRACH ,VENT DEPENDENT, ON TELE SR HR IN 70'S , TRACH CARE DONE , O2 SAT WNL, 80CC TF RESIDUAL NOTED, TF FOV49SM/HR AT THIS TIME, RIGHT UPPER ARM PICC LINE SITE CLEAN ,DRY AND INTACT, SR UP x3, CALL LIGHT WITHIN EASY REACH, BED LOCKED AND IN LOWEST POSITION, CONTINUE TO MONITOR .
[2021-01-09] MEDS: Z GUARD REMEDY 2 OZ OINT TP SCH (07:55)
[2021-01-09] MEDS: INSULIN REGULAR, HUMAN 100 UNIT/ML 3 ML VIAL SQ PRN ×2 (11:52→23:51)
[2021-01-09] MEDS: HYDROGEL DRESSING 90 GM TUBE TP SCH (11:53)
--- NOTE | 2021-01-09 12:00 | NUR ---
RN NOTES TF STILL ON HOLD DUE TO HIGH RESIDUAL, CONTINUE TO MONITOR.
--- NOTE | 2021-01-09 14:30 | NUR ---
ROBERT SHAY PT TRANSFERRED TO ROOM [facility], [facility] STAUS VIA ACLS PROTOCOL, NO BELONGINGS NOTED Addendum: 01/09/21 at 1504 by VINEET WILLARD RN IN STABLE CONDITION Addendum: 01/09/21 at 1506 by VINEET WILLARD RN CORRECTION PT TRANSFERRED TO [address] [place] [address] STATUS
[2021-01-09] MEDS: ONDANSETRON HCL/PF 4 MG/2 ML VIAL IV PRN (15:39)
--- NOTE | 2021-01-09 19:40 | NUR ---
RN OPENING NOTES, RECEIVED PT ON BED, OBTUNDED, OPEN EYES TO PAINFUL STIMULI , WITH TRACH IN PLACE, ON MECHANICAL VENTILATOR, NO SOB/ACUTE DISTRESS NOTED, SR HR IN 80'S AT THIS TIME, 80ML RESIDUAL NOTED, WILL CONTINUE TO MONITOR CLOSELY, NO EPISODE OF EMESIS AT THIS TIME, FEEDING ON HOLD FOR NOW, ALL SAFETY MEASURES IN PLACED, SR UP x3, CALL LIGHT W/I REACH, BED LOCKED AND IN LOWEST POSITION, WILL CONTINUE TO MONITOR CLOSELY..
[2021-01-09] MEDS: ENOXAPARIN SODIUM 30 MG/0.3 ML DISP.SYRIN SQ SCH (20:05)
[2021-01-09] MEDS: GLUCERNA 1.2 1,000 ML BOTTLE GT PRN (22:52)
[2021-01-10] VITALS (8 sets, daily range): BP systolic 110–154; BP diastolic 60–77
[2021-01-10] MEDS: ZOSYN IVPB 2.25 G in IV D5W 50ml IV SCH ×3 (02:17→15:51)
[2021-01-10] MEDS: BLOOD SUGAR DIAGNOSTIC 1 EACH STRIP IN SCH ×3 (06:19→18:00)
[2021-01-10] MEDS: INSULIN REGULAR, HUMAN 100 UNIT/ML 3 ML VIAL SQ PRN ×2 (06:21→10:01)
--- NOTE | 2021-01-10 06:51 | NUR ---
RN CLOSING NOTES, PATIENT IN BED, CONTINUE ON MECHANICAL VENTILATOR, NO SOB/ACUTE DISTRESS NOTED, WITH OPTIMAL O2 SAT DURING THE NIGHT, SR HR IN 80-90'S AT THIS TIME, AFTER MIDNIGHT NO RESIDUAL AND STARTED FEEDING AT 20ML/HR, NO EPISODE OF EMESIS IN MY SHIFT, NO RESIDUAL AT THIS TIME, ALL SAFETY MEASURES IN PLACED, SR UP x3, CALL LIGHT W/I REACH, BED LOCKED AND IN LOWEST POSITION, WILL ENDORSE CONTINUITY OF CARE TO ONCOMING NURSE.
[2021-01-10] MEDS: HYDROGEL DRESSING 90 GM TUBE TP SCH (09:00)
[2021-01-10] MEDS: Z GUARD REMEDY 2 OZ OINT TP SCH (09:00)
[2021-01-10] MEDS ORDERED: AMLODIPINE BESYLATE 5 MG TABLET PO SCH (09:00)
[2021-01-10 09:19] LABS: BASOPHILS % (AUTO) 0.3 % (0.0-2.0); EOSINOPHILS % (AUTO) 0.3 % (0.0-6.0); LYMPHOCYTES # (AUTO) 1.7 K/uL (0.8-4.8); LYMPHOCYTES % (AUTO) 20.1 % (20.0-44.0); MEAN CORPUSCULAR HGB CONC 32 g/dl (31.0-36.0); MEAN CORPUSCULAR VOLUME 95 fL (82-100); MONOCYTES # (AUTO) 0.4 K/uL (0.1-1.30); MONOCYTES % (AUTO) 5.2 % (2.0-12.0); NEUTROPHILS # (AUTO) 6.4 K/uL (1.8-8.9); NEUTROPHILS % (AUTO) 74.1 % (43.0-81.0); PLATELET COUNT (AUTO) 326 K/uL (150-450); RED BLOOD CELL COUNT(AUTO) 2.06 MIL/uL (4.0-5.2); WHITE BLOOD COUNT (AUTO) 8.6 K/uL (4.3-11.0)
[2021-01-10] MEDS ORDERED: AMLODIPINE BESYLATE 5 MG TABLET GT SCH (09:19)
[2021-01-10 09:33] LABS: HEMATOCRIT 20 % (33-45); HEMOGLOBIN 6.3 g/dL (11.5-14.8)
[2021-01-10] MEDS ORDERED: VANC1PLA9 IV (10:15)
[2021-01-10] MEDS ORDERED: AMLO-212 GT (10:15)
[2021-01-10] MEDS ORDERED: CEFE1FRO IV (10:15)
[2021-01-10 11:01] LABS: ALBUMIN 1.5 g/dL (3.4-5.0); BILIRUBIN,TOTAL 0.3 mg/dL (0.2-1.0); CREATININE 1.6 mg/dL (0.6-1.3); TOTAL PROTEIN, SERUM 5.7 g/dL (6.4-8.2)
[2021-01-10 14:55] LABS: LYMPHOCYTES % (MANUAL) 20 % (16-48); MONOCYTES % (MANUAL) 5 % (0-11.0); NEUTROPHILS % (MANUAL) 75 (42-76)
[2021-01-10 17:57] LABS: HEMATOCRIT 26 % (33-45); HEMOGLOBIN 8.9 g/dL (11.5-14.8); MEAN CORPUSCULAR HGB CONC 34 g/dl (31.0-36.0); MEAN CORPUSCULAR VOLUME 89 fL (82-100); PLATELET COUNT (AUTO) 385 K/uL (150-450); RED BLOOD CELL COUNT(AUTO) 2.94 MIL/uL (4.0-5.2); WHITE BLOOD COUNT (AUTO) 10.9 K/uL (4.3-11.0)
--- NOTE | 2021-01-10 18:15 | NUR ---
RN NOTE PT DISCHARGED AND RECEIVED BY EMS WITH RESPIRATORY CARE. GAVE REPORT TO KAY FROM [facility].
== END 2021-01-10 18:37 | DRG 5 ==
LOC: ER 19:45 → TELE1 23:09 → MEDSG1 12-19 08:42 → MED 12-22 18:15 → ICU 12-27 05:41 → MEDSG1 01-02 14:24 → MED 01-04 12:50 → MEDSG1 01-04 12:52 → ICU 01-05 17:55 → TELE-TD 01-09 14:45 → TELE1 01-10 08:18
PROVIDERS: ADMIT Internal Medicine; ATTEND Internal Medicine
PROC: 30233N1 Transfusion of Nonautologous Red Blood Cells into Peripheral Vein, Percutaneous Approach (ICD-10-PCS; 2020-12-20)
PROC: 5A1955Z Respiratory Ventilation, Greater than 96 Consecutive Hours (ICD-10-PCS; principal; 2020-12-27)
PROC: 02HV33Z Insertion of Infusion Device into Superior Vena Cava, Percutaneous Approach (ICD-10-PCS; 2020-12-27)
PROC: B548ZZA Ultrasonography of Superior Vena Cava, Guidance (ICD-10-PCS; 2020-12-27)
PROC: 0BH18EZ Insertion of Endotracheal Airway into Trachea, Via Natural or Artificial Opening Endoscopic (ICD-10-PCS; 2020-12-28)
PROC: 0BH18EZ Insertion of Endotracheal Airway into Trachea, Via Natural or Artificial Opening Endoscopic (ICD-10-PCS; 2021-01-05)
PROC: 5A1955Z Respiratory Ventilation, Greater than 96 Consecutive Hours (ICD-10-PCS; 2021-01-05)
PROC: 0B113F4 Bypass Trachea to Cutaneous with Tracheostomy Device, Percutaneous Approach (ICD-10-PCS; 2021-01-08)
DX: A41.9 Sepsis, unspecified organism (principal); N17.0 Acute kidney failure with tubular necrosis; G93.40 Encephalopathy, unspecified; J96.21 Acute and chronic respiratory failure with hypoxia; E43 Unspecified severe protein-calorie malnutrition; K80.00 Calculus of gallbladder with acute cholecystitis without obstruction; E72.20 Disorder of urea cycle metabolism, unspecified; G93.1 Anoxic brain damage, not elsewhere classified; C22.1 Intrahepatic bile duct carcinoma; J18.9 Pneumonia, unspecified organism; L89.153 Pressure ulcer of sacral region, stage 3; D68.9 Coagulation defect, unspecified; E86.0 Dehydration; E11.22 Type 2 diabetes mellitus with diabetic chronic kidney disease; E11.65 Type 2 diabetes mellitus with hyperglycemia; N13.6 Pyonephrosis; R65.20 Severe sepsis without septic shock; Z68.1 Body mass index [BMI] 19.9 or less, adult; Z20.822 Contact with and (suspected) exposure to COVID-19; I12.9 Hypertensive chronic kidney disease with stage 1 through stage 4 chronic kidney disease, or unspecified chronic kidney disease; N18.30 Chronic kidney disease, stage 3 unspecified; Z93.0 Tracheostomy status; Z93.1 Gastrostomy status; R13.10 Dysphagia, unspecified; Z86.73 Personal history of transient ischemic attack (TIA), and cerebral infarction without residual deficits; Z79.899 Other long term (current) drug therapy; Z79.4 Long term (current) use of insulin; Z79.51 Long term (current) use of inhaled steroids; F03.90 Unspecified dementia, unspecified severity, without behavioral disturbance, psychotic disturbance, mood disturbance, and anxiety; D63.8 Anemia in other chronic diseases classified elsewhere; E11.621 Type 2 diabetes mellitus with foot ulcer; E11.40 Type 2 diabetes mellitus with diabetic neuropathy, unspecified; E11.622 Type 2 diabetes mellitus with other skin ulcer; L97.429 Non-pressure chronic ulcer of left heel and midfoot with unspecified severity; L97.519 Non-pressure chronic ulcer of other part of right foot with unspecified severity; L97.529 Non-pressure chronic ulcer of other part of left foot with unspecified severity; M24.562 Contracture, left knee; M24.561 Contracture, right knee; L90.5 Scar conditions and fibrosis of skin; J98.11 Atelectasis; Z51.5 Encounter for palliative care; Z66 Do not resuscitate; I46.9 Cardiac arrest, cause unspecified; E87.0 Hyperosmolality and hypernatremia; E87.1 Hypo-osmolality and hyponatremia; N39.0 Urinary tract infection, site not specified; B96.5 Pseudomonas (aeruginosa) (mallei) (pseudomallei) as the cause of diseases classified elsewhere; N32.0 Bladder-neck obstruction; E87.6 Hypokalemia; J90 Pleural effusion, not elsewhere classified; C23 Malignant neoplasm of gallbladder; D75.839 Thrombocytosis, unspecified
CPT/HCPCS: 31623; 31720; 36415; 36569; 36600; 70450-TC; 71045-TC; 71250-TC; 74181-TC; 76700-TC; 78226; 80048-TC; 80053-TC; 80076-TC; 80202-TC; 81001; 82105; 82140-TC; 82248-TC; 82272-TC; 82378; 82728-TC; 82784; 82803-TC; 82962-TC; 83540-TC; 83605-TC; 83735-TC; 84100-TC; 84155; 84165; 84439-TC; 84443-TC; 84478-TC; 84484-TC; 85025-TC; 85027-TC; 85610-TC; 85730-TC; 86301; 86334; 86704; 86803; 86850-TC; 87040-TC; 87070-TC; 87081-TC; 87086-TC; 87186-TC; 87340; 87806; 92526; 92611-TC; 92950-TC; 94002-TC; 94003-TC; 94760-TC; 94762-TC; 94799-TC; 97110-TC; 97112-TC; 97530-TC; 97535-TC; 99082-TC; A6248; A6253; A6403; A6407; A7526; A9537; C9113; G0378; J0171; J0330; J0360; J0692; J1170; J1650; J1815; J2060; J2185; J2250; J2270; J2405; J2543; J3370; J3475; J3480; J3490; J7030; J7040; J7050; J7060; J7120; P9016; U0003

== ENCOUNTER 2021-03-14 13:43 | Inpatient (IN) | payer MEDICAID ==
[~2021-03-14] VITALS: Ht 165.1 cm; Wt 49.0 kg
[~2021-03-14 13:43] MED LIST changes: -ACET-2605 GT; +AMIN30LI2 GT; -AMIN887L GT; -ASCO500C17 GT; +ASCO500T10 GT; -CLON0.5T4 PO; -CRAN3875 GT; -GLUC1KIT IM; -MAGN400O6 GT; -METO25TA6 GT; -NA P133E RC; -OMEG1600 PO; -OMEP20CA15 GT; +PANT40SU2 GT; +POTA20PA3 GT; -QUET25TA GT
--- NOTE | 2021-03-14 14:20 | NUR ---
DR WINTERS AT BEDSIDE
[2021-03-14] MEDS ORDERED: CEFEPIME 1 GM in IV D5W 50 ML IV ONE (14:30)
[2021-03-14] MEDS ORDERED: IV NS 0.9% 1,000 ML BAG IV ONE (14:30)
[2021-03-14] MEDS ORDERED: VANCOMYCIN 1 GM in IV D5W 250 ML IV ONE (14:30)
[2021-03-14] MEDS ORDERED: ACETAMINOPHEN 650 MG/SUPP.RECT RC ONE ×2 (14:30→14:44)
--- NOTE | 2021-03-14 14:42 | NUR ---
urine sample collected from kaur catheter, sent to lab
--- NOTE | 2021-03-14 14:45 | NUR ---
technicians and trades workers at bedside for xray
[2021-03-14 15:18] LABS: BASOPHILS # (AUTO) 0.1 K/uL (0.0-0.2); BASOPHILS % (AUTO) 0.4 % (0.0-2.0); EOSINOPHILS % (AUTO) 0.4 % (0.0-6.0); LYMPHOCYTES % (AUTO) 18.3 % (20.0-44.0); MEAN CORPUSCULAR HGB CONC 33 g/dl (31.0-36.0); MEAN CORPUSCULAR VOLUME 95 fL (82-100); MONOCYTES # (AUTO) 0.7 K/uL (0.1-1.30); MONOCYTES % (AUTO) 4.1 % (2.0-12.0); NEUTROPHILS # (AUTO) 12.7 K/uL (1.8-8.9); NEUTROPHILS % (AUTO) 76.8 % (43.0-81.0); PLATELET COUNT (AUTO) 603 K/uL (150-450); RED BLOOD CELL COUNT(AUTO) 2.08 MIL/uL (4.0-5.2)
[2021-03-14] MEDS ORDERED: MAGN400O6 GT (15:18)
[2021-03-14] MEDS ORDERED: NA P133E RC (15:18)
[2021-03-14] MEDS ORDERED: ACET-868 GT (15:18)
[2021-03-14] MEDS ORDERED: CHLO473M5 MM (15:18)
[2021-03-14] MEDS ORDERED: IPRA4AER IH (15:18)
[2021-03-14] MEDS ORDERED: ACET-2605 GT (15:18)
[2021-03-14] MEDS ORDERED: CLON0.1T PO (15:18)
[2021-03-14] MEDS ORDERED: METO25TA20 GT (15:18)
[2021-03-14] MEDS ORDERED: NUT.237L31 GT (15:18)
[2021-03-14] MEDS ORDERED: AMLO-212 GT (15:18)
[2021-03-14 15:21] LABS: COLOR,URINE YELLOW (YELLOW); PH,URINE 8.5 (5.0-8.0)
[2021-03-14 15:22] LABS: BILIRUBIN,URINE NEGATIVE (NEGATIVE); PROTEIN,URINE 2+ mg/dl (NEGATIVE); UGLUCOSE NEGATIVE (NEGATIVE)
[2021-03-14 15:23] LABS: LEUKOCYTE ESTERASE ,URINE 3+ (NEGATIVE); NITRITE, URINE NEGATIVE (NEGATIVE); UROBILINOGEN,URINE 0.2 EU/dL (0.2)
[2021-03-14 15:26] LABS: HEMATOCRIT 20 % (33-45); HEMOGLOBIN 6.5 g/dL (11.5-14.8)
[2021-03-14 15:27] LABS: WHITE BLOOD COUNT (AUTO) 16.6 K/uL (4.3-11.0)
[2021-03-14 15:53] LABS: BACTERIA,URINE 3+ /HPF (None Seen); RBC,URINE 51-80 /HPF (0-2); SQUAMOUS EPITHELIAL CELL,UR Few /HPF (None Seen); WBC,URINE 51-80 /HPF (0-3)
[2021-03-14] MEDS ORDERED: CEFTRIAXONE 1GM BAG (ER ONLY) 1 GM/50 ML PIGGYBACK IV ONE (16:00)
--- NOTE | 2021-03-14 16:01 | NUR ---
[facility] CALLED [facility] UNLOADING EQUIPMENT TENDER PAGED.
--- NOTE | 2021-03-14 16:11 | NUR ---
COVID PCR SWAB DONE AND SENT TO LAB
[2021-03-14 16:12] LABS: ALANINE AMINOTRANSFERASE 20 U/L (12-78); ALBUMIN 2.5 g/dL (3.4-5.0); ALKALINE PHOSPHATASE 135 U/L (46-116); ASPARTATE AMINOTRANSFERASE 25 U/L (15-37); BILIRUBIN,DIRECT 0.1 mg/dL (0.0-0.2); BILIRUBIN,TOTAL 0.3 mg/dL (0.2-1.0); CALCIUM, SERUM 9.4 mg/dL (8.5-10.1); CARBON DIOXIDE 22 mmol/L (21-32); CHLORIDE 99 mmol/L (98-107); CREATININE 2.7 mg/dL (0.6-1.3); GLUCOSE 252 mg/dL (74-106); POTASSIUM 5.2 mmol/L (3.5-5.1); SODIUM SERUM 133 mmol/L (136-145); TOTAL PROTEIN, SERUM 8.6 g/dL (6.4-8.2)
--- NOTE | 2021-03-14 16:14 | NUR ---
[facility] BED 116-1
[2021-03-14 16:25] LABS: UREA NITROGEN, BLOOD 140 mg/dL (7-18)
[2021-03-14] MEDS ORDERED: MIDODRINE HCL (5MG) 5 MG TABLET PO PRN (16:30)
[2021-03-14] MEDS ORDERED: CEFEPIME 1 GM in IV D5W 50 ML IV SCH (16:30)
[2021-03-14] MEDS ORDERED: GLUCERNA 1.5 1,000 ML BOTTLE GT SCH (16:30)
[2021-03-14] MEDS ORDERED: MORPHINE SULFATE INJ 2 MG/ML DISP.SYRIN IV PRN (16:30)
[2021-03-14] MEDS ORDERED: CLONIDINE HCL 0.1 MG TABLET PO PRN (16:30)
[2021-03-14] MEDS ORDERED: ONDANSETRON HCL/PF 4 MG/2 ML VIAL IVP PRN (16:30)
[2021-03-14] MEDS ORDERED: NA PHOS,M-B/NA PHOS,DI-BA 1 EA ENEMA RC PRN (16:30)
[2021-03-14] MEDS ORDERED: *INSULIN REGULAR(HUMULIN R)HUM 100 UNIT/ML VIAL SQ PRN (16:30)
[2021-03-14] MEDS ORDERED: LABETALOL 20 MG/4 ML VIAL IV PRN (16:30)
[2021-03-14] MEDS ORDERED: DEXTROSE 50%-WATER 50 ML DISP.SYRIN IV PRN (16:30)
[2021-03-14] MEDS ORDERED: VANCOMYCIN 1 GM in IV D5W 250 ML IV SCH (16:30)
[2021-03-14] MEDS ORDERED: hydrALAZINE HCL IV 20 MG VIAL IV PRN (16:30)
[2021-03-14] MEDS ORDERED: BISACODYL SUPP (10 MG) 10 MG/SUPP.RECT SUPP.RECT RC PRN (16:30)
--- NOTE | 2021-03-14 16:57 | NUR ---
RN NOTE TELEPHONE REPORT RECEIVED FRCharles BAXTER.
--- NOTE | 2021-03-14 16:57 | NUR ---
REPORT GIVEN TO LIDYA JONES OF [facility]
[2021-03-14] MEDS: CHLORHEXIDINE GLUCONATE 15 ML UDC MM SCH (17:00)
--- NOTE | 2021-03-14 17:20 | NUR ---
RN NOTE RECEIVED PATIENT FROM ER ACCOMPANIED BY ROBERT BAXTER VIA ANGELESNEY THEN TRANSFERRED TO BED. WITH PRIMARY DX OF NON WOUND HEALING TO SACRUM AND SEPSIS.. PT IS NONVERBAL. CONNECTED TO VENTILATOR WITH SETTING OF AC-16, TV-500, FIO2-40%, PEEP-5. SATURATING 100%. PATIENT HAS OH IN PLACE WITH CLEAR YELLOW OUTPUT. CONTRACTED BUE AND BLE WITH DECUBITUS ULCER ON SACRAL AREA WITH MODERATE AMOUNT OF GREENISH DRAINAGE. IV TO LAC #18 IS INTACT AND PATENT. GT TO LUQ IN PLACE WITH NO RESIDUAL. MADE COMFORTABLE IN BED. SAFETY MEASURES OBSERVED. V/S BP137/75, P-107,RR-16,T-98.3. WILL ENDORSE TO CARO JONES
[2021-03-14 17:25] LABS: BAND % (MANUAL) 5 % (0.0-5.0); EOSINOPHILS % (MANUAL) 1 % (0-4); LYMPHOCYTES % (MANUAL) 18 % (16-48); MONOCYTES % (MANUAL) 6 % (0-11.0); NEUTROPHILS % (MANUAL) 70 (42-76)
[2021-03-14 18:57] VITALS: BP 137/75
[2021-03-14] MEDS: DOCUSATE SODIUM 100 MG CAPSULE PO SCH (19:23)
[2021-03-14] MEDS: METOPROLOL TARTRATE 25 MG TABLET GT SCH (19:23)
[2021-03-14] MEDS: PANTOPRAZOLE 40 MG VIAL IV SCH (19:23)
[2021-03-14] MEDS: BLOOD SUGAR DIAGNOSTIC 1 EACH STRIP VI SCH ×2 (19:24→21:44)
[2021-03-14] MEDS: INSULIN REGULAR, HUMAN 100 UNIT/ML 3 ML VIAL SQ PRN (19:26)
--- NOTE | 2021-03-14 19:50 | NUR ---
RN NOTE RECEIVED PATIENT IN BED, SLEEPING, AROUSABLE TO NAME AND LIGHT TOUCH. NON-VERBAL. BREATHING EVEN AND UNLABORED. NO SOB NOTED AT THIS TIME. ON VENT, WITH SETTINGS OF AC:16, TV: 500, FIO2: 40%, PEEP: 5.0. ON TELE MONITORING, SINUS RHYTHM AT 95 BPM. NOTED WITH RIGHT AC 18G, FLUSHING WELL, NO INFILTRATION. NO FLUIDS RUNNING AT THIS TIME. NOTED WITH G-TUBE. NO BLEEDING NOTED, NO FEEDING IN PLACE. PLACEMENT VERIFIED VIA AUSCULTATION WITH TWO RN. MINIMAL RESIDUAL NOTED. NOTED WITH OH CATHETER. NO BLEEDING. DRAINING YELLOW URINE. BED LOW, IN LOCKED POSITION. CALL LIGHT WITHIN REACH.
[2021-03-14 20:00] VITALS: BP 120/66
[2021-03-14] MEDS: IV NS 0.9% 1,000 ML IV PRN (20:22)
[2021-03-14 20:30] LABS: HEMOGLOBIN 6.6 g/dL (11.5-14.8)
--- NOTE | 2021-03-14 20:35 | NUR ---
2034 Critical Hgb 6.6 and Hct 2 reported to [facility] with no order at this time. Per blood bank there is an order for 1 unit PRBC for patient but blood is coming from [facility] and they will notify unit once available. Addendum: 03/14/21 at 2050 by MICKEY PHAN RN 2048 Regarding above note: Critical hgb 6.6 Hct 20 reported to [facility]. 1 unit PRBC pending from [facility].
[2021-03-14] MEDS: IPRATROPIUM/ALBUTEROL INHALER IH SCH (21:44)
[2021-03-14] MEDS: INSULIN GLARGINE, 100 UNIT/ML CARTRIDGE SQ SCH (21:47)
--- NOTE | 2021-03-14 22:50 | NUR ---
RN NOTE CONTACTED RESPONSIBLE GREEN PARTY OF PATIENT TO OBTAIN VERBAL CONSENT FOR BLOOD TRANSFUSION. PERSON TO NOTIFY, ELMER FLORES, UNABLE TO REACH AT THIS TIME. UNABLE TO LEAVE VOICEMAIL. CONTACTED NEXT OF KIN, ELENA FLORES, UNABLE TO REACH AT THIS TIME BUT LEFT VOICEMAIL TO CALL BACK.
[2021-03-15] VITALS (14 sets, daily range): BP systolic 107–126; BP diastolic 56–71
--- NOTE | 2021-03-15 01:04 | NUR ---
RN NOTE INSERTED PERIPHERAL IV 22G ON RIGHT FOREARM, PATENT WITH GOOD BLOOD RETURN. NO INFILTRATION NOTED.
[2021-03-15] MEDS: IPRATROPIUM/ALBUTEROL INHALER IH SCH ×4 (01:12→21:50)
--- NOTE | 2021-03-15 01:12 | NUR ---
RN NOTES: PATIENT NOT OPENING MOUTH AT THIS MOMENT. UNABLE TO ADMINISTER THE INHALER. PT TOLERATED VENT SETTING. NO RESPIRATORY DISTRESS. O2 SAT 100%. WILL CONTINUE TO MONITOR. CALL LIGHT WITH IN REACH.
[2021-03-15 04:21] LABS: BASOPHILS # (AUTO) 0.1 K/uL (0.0-0.2); BASOPHILS % (AUTO) 0.4 % (0.0-2.0); EOSINOPHILS % (AUTO) 0.3 % (0.0-6.0); LYMPHOCYTES # (AUTO) 2.1 K/uL (0.8-4.8); LYMPHOCYTES % (AUTO) 12.5 % (20.0-44.0); MEAN CORPUSCULAR HGB CONC 32 g/dl (31.0-36.0); MEAN CORPUSCULAR VOLUME 95 fL (82-100); MONOCYTES # (AUTO) 0.6 K/uL (0.1-1.30); MONOCYTES % (AUTO) 3.8 % (2.0-12.0); PLATELET COUNT (AUTO) 548 K/uL (150-450); RED BLOOD CELL COUNT(AUTO) 2.07 MIL/uL (4.0-5.2); WHITE BLOOD COUNT (AUTO) 16.9 K/uL (4.3-11.0)
[2021-03-15 05:12] LABS: ALBUMIN 2.3 g/dL (3.4-5.0); BILIRUBIN,TOTAL 0.3 mg/dL (0.2-1.0); CALCIUM, SERUM 8.8 mg/dL (8.5-10.1); CREATININE 2.4 mg/dL (0.6-1.3); MAGNESIUM 2.6 mg/dL (1.8-2.4); PHOSPHORUS 4.4 mg/dL (2.5-4.9); POTASSIUM 4.8 mmol/L (3.5-5.1); TOTAL PROTEIN, SERUM 7.2 g/dL (6.4-8.2)
[2021-03-15 06:34] LABS: HEMATOCRIT 20 % (33-45); HEMOGLOBIN 6.3 g/dL (11.5-14.8)
--- NOTE | 2021-03-15 06:43 | NUR ---
RN NOTE RECEIVED CALL FROM LAB, PATIENTS HEMOGLOBIN LEVEL IS 6.3. CRITICAL VALUE RELAYED TO [facility]. NO NEW ORDER. LAB AWARE THAT PATIENT HAS ORDER FOR 1 UNIT PRBC. PER LAB, THEY WILL CALL [facility] WHEN BLOOD IS AVAILABLE. CHARGE NURSE MADE AWARE.
--- NOTE | 2021-03-15 07:15 | NUR ---
RN NOTE REPORT REC'D AT BEDSIDE. PT ASLEEP. OPENS EYES TO SPEECH. NONVERBAL. NOT IN RESPIRATORY DISTRESS. WITH TRACH TO VENT. SETTING FF:AC16, TV500, ZLN195% AND PEEP 5. SR ON TELE MONITOR. OH TO GRAVITY DRAINING CLEAR, YELLOW OUTPUT. DRESSING TO MULTIPLE WOUND CLEAN AND INTACT. IV TO RFA PATENT AND INTACT. LAC #18 WITH IVF RUNNING AT 75 CC/HR. NO S/SX OF INFILTRATION NOTED. GT FEEDING AT 45CC/HR. SAFETY MEASURES OBSERVED. WILL CONTINUE TO MONITOR.MONITOR
--- NOTE | 2021-03-15 07:52 | NUR ---
RN NOTE BLOOD BANK CALLED FOR 1PRBC STATUS, PATIENT NEEDS BLOOD TRANSFUSION, PER BLOOD BANK "PATIENT 1 PRBC IS STILL NOT AVAILABLE AWAITING [facility] DELIVERY STAT"
[2021-03-15 08:20] LABS: LYMPHOCYTES % (MANUAL) 14 % (16-48); MONOCYTES % (MANUAL) 3 % (0-11.0); NEUTROPHILS % (MANUAL) 83 (42-76)
[2021-03-15] MEDS: DOCUSATE SODIUM 100 MG CAPSULE PO SCH ×2 (08:44→16:55)
[2021-03-15] MEDS: CHLORHEXIDINE GLUCONATE 15 ML UDC MM SCH ×2 (08:44→16:54)
[2021-03-15] MEDS: ASCORBIC ACID 500 MG TABLET GT SCH (08:44)
[2021-03-15] MEDS: PANTOPRAZOLE 40 MG VIAL IV SCH (08:45)
[2021-03-15] MEDS: AMLODIPINE BESYLATE 5 MG TABLET GT SCH (08:45)
[2021-03-15] MEDS: CHOLECALCIFEROL (VITAMIN D 3) 400 UNIT TABLET GT SCH (08:45)
[2021-03-15] MEDS: FERROUS SULFATE (325 MG) 325 MG/TAB TABLET GT SCH (08:45)
[2021-03-15] MEDS: METOPROLOL TARTRATE 25 MG TABLET GT SCH ×2 (08:46→16:53)
[2021-03-15] MEDS: BLOOD SUGAR DIAGNOSTIC 1 EACH STRIP VI SCH ×4 (08:46→23:16)
[2021-03-15] MEDS: VIT B CMPLX 3/FA/VIT C/BIOTIN 1 TAB TABLET GT SCH (08:46)
--- NOTE | 2021-03-15 08:50 | NUR ---
RN NOTE BEV WALKER AT BEDSIDE. MD NOTIFIED RE: 1PRBC PER BLOOD BANK STILL PENDING DELIVERY FROM [facility]. UPDATED MD RE:PT CONDITION. PER MD MONITOR S/SX OF BLEEDING. NO GASTRIC BLEEDING MD NOTED FROM GT RESIDUAL.
[2021-03-15] MEDS: INSULIN REGULAR, HUMAN 100 UNIT/ML 3 ML VIAL SQ PRN ×3 (09:00→16:55)
[2021-03-15] MEDS: IV NS 0.9% 1,000 ML IV PRN ×2 (10:03→23:08)
[2021-03-15] MEDS ORDERED: diphenhydrAMINE HCL 50 MG/ML VIAL IV PRN (10:30)
[2021-03-15] MEDS: ACETAMINOPHEN 325 MG TABLET PO PRN (11:11)
--- NOTE | 2021-03-15 12:10 | NUR ---
RN NOTE NOTIFIED , PATIENT POSITIVE URINALYSIS FOR STREP SPECIES GRAM NEGATIVE PARRIS, PER DR. GUTIERREZ NOTIFY DR. MARIE, NOTIFIED DR. MARIE ORDERED.
[2021-03-15 13:06] LABS: HEMOGLOBIN 6.3 g/dL (11.5-14.8)
--- NOTE | 2021-03-15 14:14 | NUR ---
RN NOTE BLOOD TRANSFUSION COMPLETED WITHOUT ANY REACTIONS. POST TRANSFUSION H/H ORDERED PER
[2021-03-15] MEDS: METRONIDAZOLE 500 MG TABLET PO SCH ×2 (14:47→21:52)
[2021-03-15] MEDS ORDERED: CEFEPIME 2 GM in IV D5W 100 ML IV SCH (15:00)
--- NOTE | 2021-03-15 16:30 | NUR ---
RN NOTE SECOND UNIT OF PRBC COMPLETED WITHOUT TRANSFUSION REACTION. VITAL SIGNS WNL.
[2021-03-15] MEDS: PANTOPRAZOLE 40 MG/PACK PACK GT SCH (16:53)
--- NOTE | 2021-03-15 17:46 | NUR ---
RN NOTE STOOL COLLECTED FOR OCCULT BLOOD.
--- NOTE | 2021-03-15 17:59 | NUR ---
RN NOTE DR. COHLO PABLO, ORDERED CBC POST BLOOD TRANSFUSION, ORDERS NOTED AND CARRIED OUT.
[2021-03-15 18:26] LABS: BASOPHILS # (AUTO) 0.1 K/uL (0.0-0.2); BASOPHILS % (AUTO) 0.7 % (0.0-2.0); EOSINOPHILS % (AUTO) 0.5 % (0.0-6.0); HEMATOCRIT 36 % (33-45); HEMOGLOBIN 11.9 g/dL (11.5-14.8); LYMPHOCYTES # (AUTO) 1.6 K/uL (0.8-4.8); LYMPHOCYTES % (AUTO) 15.3 % (20.0-44.0); MEAN CORPUSCULAR HGB CONC 34 g/dl (31.0-36.0); MEAN CORPUSCULAR VOLUME 96 fL (82-100); MONOCYTES # (AUTO) 0.4 K/uL (0.1-1.30); MONOCYTES % (AUTO) 4.1 % (2.0-12.0); NEUTROPHILS # (AUTO) 8.3 K/uL (1.8-8.9); NEUTROPHILS % (AUTO) 79.4 % (43.0-81.0); PLATELET COUNT (AUTO) 393 K/uL (150-450); WHITE BLOOD COUNT (AUTO) 10.4 K/uL (4.3-11.0)
--- NOTE | 2021-03-15 18:51 | NUR ---
RN NOTE PT IN BED. NONVERBAL. ON TRACH WITH MECHANICAL VENTILATOR. TOLERATING WELL. ON TELE MONITOR SR AT THIS TIME. TOLERATING GTUBE FEEDING AT 45CC/HR. IVF INFUSING WELL DANAE MIDLINE. OH TO GRAVITY DRAINING YELLOW URINE.. WOUND TREATMENT ORDERED ORDERED. SAFETY MEASURES OBSERVED. WILL ENDORSE CARE TO NOC RN.
--- NOTE | 2021-03-15 20:00 | NUR ---
koby rn notes PT IN BED IN STABLE CONDITION ON VENT SETTING ORDERED WELL TOLERATED ON TELE SR HR OF 68 .WITH NO SIGN OF RESPIRATORY DISTRESS OR SOB AT THIS TIME, NON-VERBAL, DANAE MIDLINE LINE ,RFA G22,LAC G#18 PATIENT INTACT AND FLUSHING WELL WITH IVF OF NS AT 75CC/HR INFUSING WELL . GT PATENT AND IN PLACE RUNNING GLUCERNA 1.2 45CC/HR, ALL NEEDS MET, PT KEPT CLEAN AND COMFORTABLE DURING SHIFT, SAFETY MEASURES IN PLACE BED LOCKED AND IN LOWEST POSITION CALL LIGHT WITHIN REACH ,V/S STABLE AFEBRILE DUE MEDS GIVEN ORDERED WILL CONTINUE TO MONITOR PTS.
[2021-03-15 20:38] LABS: HEMOGLOBIN 9.2 g/dL (11.5-14.8)
[2021-03-15] MEDS: INSULIN GLARGINE, 100 UNIT/ML CARTRIDGE SQ SCH (23:11)
--- NOTE | 2021-03-15 23:19 | NUR ---
koby rn notes Blood sugar for 2200hr is 161 -16 units of lantus given as ordered 3 units of regular insulin per slinding given ,will check blood sugar agan in am pts on gt feeding.
[2021-03-16] VITALS: BP 108/49
[2021-03-16 01:24] LABS: OCCULT BLOOD STOOL NEGATIVE (NEGATIVE)
[2021-03-16] MEDS ORDERED: VANCOMYCIN 1 GM in IV D5W 250 ML IV SCH (03:00)
[2021-03-16] MEDS: IPRATROPIUM/ALBUTEROL INHALER IH SCH ×4 (03:17→19:30)
[2021-03-16 04:00] VITALS: BP 126/69
[2021-03-16 04:05] LABS: HEMOGLOBIN 8.9 g/dL (11.5-14.8)
[2021-03-16] MEDS: METRONIDAZOLE 500 MG TABLET PO SCH (04:20)
--- NOTE | 2021-03-16 06:38 | NUR ---
koby rn notes resident in bed remains on ventilator dependent as ordered will tolerated no sob no distress noted v/s stable afebrile will endorse to rn day shift for continuity of care.
--- NOTE | 2021-03-16 07:25 | NUR ---
RN NOTE PATIENT OBSERVED IN BED. NONVERBAL. ON TRACH WITH MECHANICAL VENTILATOR. TOLERATING WELL. ON TELE MONITOR SR AT THIS TIME. ON G-TUBE FEEDING GLUCERNA 1.2 AT 45CC/HR INFUSING WELL PATENT WITH NO RESIDUAL NOTED. IVF INFUSING WELL DANAE MIDLINE. OH TO GRAVITY DRAINING YELLOW URINE NOTED. SAFETY MEASURES OBSERVED. CALL LIGHT WITHIN REACH, WILL CONTINUE TO MONITOR.
--- NOTE | 2021-03-16 07:57 | NUR ---
WOUND CARE CONSULT: REVIEWED CHART, NURSING DOCUMENTATION AND PHOTOS WHICH INDICATE MULTIPLE WOUNDS PRESENT ON ADMISSION. DR MEYER AND DR FRAZIER NOTIFIED OF SURGICAL AND DPM CONSULT REQUESTS. RECOMMENDATIONS MADE FOR SKIN PROTECTION. DISCUSSED WITH NURSING STAFF. PT IS ON [place] ISOFLEX LOW AIRLOSS BED. MD IN AGREEMENT WITH PLAN OF CARE.
[2021-03-16 08:00] VITALS: BP 127/70
[2021-03-16] MEDS ORDERED: DEXTROSE 50%-WATER 50 ML DISP.SYRIN IV PRN (08:00)
[2021-03-16] MEDS: METOPROLOL TARTRATE 25 MG TABLET GT SCH ×2 (08:19→17:31)
[2021-03-16] MEDS: FERROUS SULFATE (325 MG) 325 MG/TAB TABLET GT SCH (08:19)
[2021-03-16] MEDS: VIT B CMPLX 3/FA/VIT C/BIOTIN 1 TAB TABLET GT SCH (08:19)
[2021-03-16] MEDS: ASCORBIC ACID 500 MG TABLET GT SCH (08:19)
[2021-03-16] MEDS: CHOLECALCIFEROL (VITAMIN D 3) 400 UNIT TABLET GT SCH (08:19)
[2021-03-16] MEDS: PANTOPRAZOLE 40 MG/PACK PACK GT SCH ×2 (08:19→17:31)
[2021-03-16] MEDS: DOCUSATE SODIUM 100 MG CAPSULE PO SCH ×2 (08:19→17:31)
[2021-03-16] MEDS: Z GUARD REMEDY 2 OZ OINT TP SCH (08:19)
[2021-03-16] MEDS: AMLODIPINE BESYLATE 5 MG TABLET GT SCH (08:19)
[2021-03-16] MEDS: CHLORHEXIDINE GLUCONATE 15 ML UDC MM SCH ×2 (08:19→17:31)
[2021-03-16 08:43] LABS: BASOPHILS # (AUTO) 0.1 K/uL (0.0-0.2); BASOPHILS % (AUTO) 0.3 % (0.0-2.0); EOSINOPHILS % (AUTO) 0.3 % (0.0-6.0); HEMATOCRIT 27 % (33-45); HEMOGLOBIN 8.8 g/dL (11.5-14.8); LYMPHOCYTES # (AUTO) 2.1 K/uL (0.8-4.8); MEAN CORPUSCULAR HGB CONC 33 g/dl (31.0-36.0); MEAN CORPUSCULAR VOLUME 97 fL (82-100); MONOCYTES # (AUTO) 0.6 K/uL (0.1-1.30); MONOCYTES % (AUTO) 3.6 % (2.0-12.0); NEUTROPHILS # (AUTO) 13.1 K/uL (1.8-8.9); NEUTROPHILS % (AUTO) 82.8 % (43.0-81.0); PLATELET COUNT (AUTO) 463 K/uL (150-450); WHITE BLOOD COUNT (AUTO) 15.9 K/uL (4.3-11.0)
[2021-03-16] MEDS: IV NS 0.9% 1,000 ML IV PRN (08:48)
[2021-03-16 09:00] LABS: CALCIUM, SERUM 8.1 mg/dL (8.5-10.1); CREATININE 2.2 mg/dL (0.6-1.3); POTASSIUM 4.5 mmol/L (3.5-5.1)
[2021-03-16] MEDS ORDERED: GLUCERNA 1.2 1,000 ML BOTTLE NG PRN (09:00)
[2021-03-16 09:06] LABS: ALBUMIN 2.1 g/dL (3.4-5.0); BILIRUBIN,TOTAL 0.4 mg/dL (0.2-1.0); TOTAL PROTEIN, SERUM 6.6 g/dL (6.4-8.2)
[2021-03-16] MEDS: INSULIN REGULAR, HUMAN 100 UNIT/ML 3 ML VIAL SQ PRN ×3 (11:53→23:42)
[2021-03-16] MEDS: BLOOD SUGAR DIAGNOSTIC 1 EACH STRIP IN SCH ×3 (11:56→23:38)
[2021-03-16] MEDS: PIPERACILLIN /TAZOBACTAM 2.25 G in IV D5W 50 ML IV SCH ×3 (11:57→23:43)
[2021-03-16 12:00] VITALS: BP 121/72
[2021-03-16 12:53] LABS: HEMOGLOBIN 9.8 g/dL (11.5-14.8)
--- NOTE | 2021-03-16 12:55 | NUR ---
PATIENT IS ON VENT, MRI CANNOT BE DONE.
--- NOTE | 2021-03-16 13:02 | NUR ---
RN NOTE PATIENT ON MECHANICAL VENTILATOR, KAEL PELVIS W/O CONTRAST CANNOT BE DONE, DR. EMMANUEL MADE AWARE AND CANCELED THE PROCEDURE.
--- NOTE | 2021-03-16 13:46 | NUR ---
RN NOTE PATIENT RETURNED FROM CR PELVIS W/O CONTRAST.
[2021-03-16] MEDS ORDERED: LIDOCAINE 1%-EPI 1:100,000 20 ML VIAL TP STA (13:50)
--- NOTE | 2021-03-16 14:59 | NUR ---
ROBERT NOTE NEW OH CATHETER FR 16 INSERTED TODAY ORDERED. Addendum: 03/16/21 at 1500 by CHIDI SIFUENTES RN RN NOTE NEW OH CATHETER FR 16 INSERTED TODAY ORDERED. WITNESS BY ROBERT VARELA
--- NOTE | 2021-03-16 15:00 | NUR ---
RN NOTE SERIEL DEBRIDEMENT OF THE SACRUM VERBAL CONSENT OBTAINED FROM ELENA FLORES, SON OF CHAMBERLAIN, NIMA, WITNESS BY ROBERT TORREZ.
[2021-03-16 16:00] VITALS: BP 129/77
[2021-03-16] MEDS: DAKINS QUARTER STRENGTH (0.125%) 480 ML BOTTLE TOP SCH (17:30)
--- NOTE | 2021-03-16 18:20 | NUR ---
RN NOTE PATIENT OBSERVED IN BED. NONVERBAL. ON TRACH WITH MECHANICAL VENTILATOR. TOLERATING WELL. ON TELE MONITOR SR AT THIS TIME. ON G-TUBE FEEDING GLUCERNA 1.2 AT 45CC/HR INFUSING WELL PATENT WITH NO RESIDUAL NOTED. IVF NS @75CC/HR INFUSING WELL DANAE MIDLINE. NEW OH CATHETER INSERTED DRAINING VIA GRAVITY. SAFETY MEASURES OBSERVED. CALL LIGHT WITHIN REACH, WILL ENDORSE TO NOC SHIFT
--- NOTE | 2021-03-16 19:40 | NUR ---
RN OPENING NOTES: RECEIVED PATIENT IN BED OPENING BOTH EYES TO PAINFUL STIMULI. NON-VERBAL. ON TRACH WITH MECHANICAL VENT. AC:16, TV:500, FIO2:40, PEEP:5. PT TOLERATED WELL. ON GTUBE FEEDING AT GLUCERNA 1.2 AT 45CC/HR. HOB INCREASE TO 30 DEGREES TO PREVENT ASPIRATIONS. NO RESIDUAL NOTED AT THIS MOMENT. IV ACCESS ON DANAE MIDLINE, RFA #22 G AND LAC #18G. RUNNING NS 75CC/HR. OH CATHETER INTACT AND PATENT. SKIN WARM AND DRY TO TOUCH. ALL SAFETY MEASURES IN PLACE. BED IN LOW POSITION AND LOCKED. 3X SIDE RAILS UP. PLACE CALL LIGHT WITH IN REACH. WILL CONTINUE TO MONITOR.
[2021-03-16 20:00] VITALS: BP 129/71
[2021-03-16 21:01] LABS: HEMOGLOBIN 8.7 g/dL (11.5-14.8)
[2021-03-16] MEDS: INSULIN GLARGINE, 100 UNIT/ML CARTRIDGE SQ SCH (23:40)
--- NOTE | 2021-03-16 23:56 | NUR ---
RN NOTES: BLOOD SUGAR 187. 3 UNITS OF REGULAR INSULIN GIVEN PER SLIDING SCALE. NO S/S OF HYPER/HYPOGLYCEMIA. WILL CONTINUE TO MONITOR
[2021-03-17] VITALS: BP 120/58
[2021-03-17] MEDS: IPRATROPIUM/ALBUTEROL INHALER IH SCH ×4 (01:30→19:30)
[2021-03-17 04:00] VITALS: BP 117/62
[2021-03-17] MEDS: PIPERACILLIN /TAZOBACTAM 2.25 G in IV D5W 50 ML IV SCH ×3 (05:38→17:22)
[2021-03-17] MEDS: BLOOD SUGAR DIAGNOSTIC 1 EACH STRIP IN SCH ×3 (05:45→17:14)
[2021-03-17] MEDS: INSULIN REGULAR, HUMAN 100 UNIT/ML 3 ML VIAL SQ PRN ×4 (05:50→22:28)
--- NOTE | 2021-03-17 05:59 | NUR ---
RN NOTES: BLOOD SUGAR 169. 3 UNITS OF REGULAR INSULIN GIVEN PER SLIDING SCALE. NO S/S OF HYPER/HYPOGLYCEMIA. WILL CONTINUE TO MONITOR
[2021-03-17] MEDS: IV NS 0.9% 1,000 ML IV PRN ×2 (06:21→17:44)
--- NOTE | 2021-03-17 06:56 | NUR ---
RN CLOSING NOTES: PATIENT IN BED SLEEPING, EASILY AROUSABLE, OPENING BOTH EYES TO PAINFUL STIMULI. NON-VERBAL. ON TRACH WITH MECHANICAL VENT TOLERATED WELL. NO FACIAL GRIMACING NOTED. NO ACUTE DISTRESS. ON GTUBE FEEDING AT GLUCERNA 1.2 AT 45CC/HR. HOB INCREASE TO 30 DEGREES TO PREVENT ASPIRATIONS. NO RESIDUAL NOTED AT THIS MOMENT. ALL DUE MEDS GIVEN ORDER. GTUBE SITE INTACT AND PATENT. NO BLEEDING NOTED. IV ACCESS ON DANAE MIDLINE, RFA #22 G AND LAC #18G. RUNNING NS 75CC/HR. OH CATHETER INTACT AND PATENT W/ YELLOWISH URINE. SKIN WARM AND DRY TO TOUCH. ALL SAFETY MEASURES IN PLACE. BED IN LOW POSITION AND LOCKED. 3X SIDE RAILS UP. PLACE CALL LIGHT WITH IN REACH. WILL ENDORSE TO MORNING SHIFT NURSE.
[2021-03-17 07:15] LABS: BASOPHILS % (AUTO) 0.2 % (0.0-2.0); EOSINOPHILS % (AUTO) 0.5 % (0.0-6.0); HEMATOCRIT 28 % (33-45); HEMOGLOBIN 9.4 g/dL (11.5-14.8); LYMPHOCYTES % (AUTO) 22.9 % (20.0-44.0); MEAN CORPUSCULAR HGB CONC 33 g/dl (31.0-36.0); MEAN CORPUSCULAR VOLUME 98 fL (82-100); MONOCYTES # (AUTO) 0.5 K/uL (0.1-1.30); MONOCYTES % (AUTO) 3.6 % (2.0-12.0); NEUTROPHILS # (AUTO) 9.5 K/uL (1.8-8.9); NEUTROPHILS % (AUTO) 72.8 % (43.0-81.0); PLATELET COUNT (AUTO) 487 K/uL (150-450); RED BLOOD CELL COUNT(AUTO) 2.88 MIL/uL (4.0-5.2)
--- NOTE | 2021-03-17 07:30 | NUR ---
MS RN OPENING NOTE PT IS IN BED, ASLEEP. PT OPENS EYES, NON-VERBAL. PT ON MECHANICAL VENTILATOR, TOLERATING WELL. HEAD OF BEAD ELEVATED. NO S/SX OF DISTRESS OR FACIAL GRIMACING NOTED. G-TUBE AND OH CATHETER PATENT AND INTACT. IV ACCESS LHAND PATENT. SAFETY MEASURES IN PLACE WITH BED LOCKED AT LOW POSITION, SIDE RAILS UP X 2. CALL LIGHT IS WITHIN REACH. WILL CONTINUE TO MONITOR PATIENT THROUGHOUT SHIFT.
[2021-03-17 07:37] LABS: CALCIUM, SERUM 8.6 mg/dL (8.5-10.1)
[2021-03-17 07:39] LABS: ALBUMIN 2.1 g/dL (3.4-5.0); BILIRUBIN,TOTAL 0.4 mg/dL (0.2-1.0); TOTAL PROTEIN, SERUM 7.1 g/dL (6.4-8.2)
[2021-03-17 08:00] VITALS: BP 133/70
[2021-03-17] MEDS: CHLORHEXIDINE GLUCONATE 15 ML UDC MM SCH ×3 (09:00→16:22)
--- NOTE | 2021-03-17 09:04 | NUR ---
MS RN NOTE PHARMACY INFORMED CHLORHEXIDINE GLUCONATE MOUTHWASH UNABLE TO SCAN.
[2021-03-17] MEDS: DOCUSATE SODIUM 100 MG CAPSULE PO SCH ×2 (09:09→16:21)
[2021-03-17] MEDS: VIT B CMPLX 3/FA/VIT C/BIOTIN 1 TAB TABLET GT SCH (09:10)
[2021-03-17] MEDS: AMLODIPINE BESYLATE 5 MG TABLET GT SCH (09:10)
[2021-03-17] MEDS: ASCORBIC ACID 500 MG TABLET GT SCH (09:10)
[2021-03-17] MEDS: METOPROLOL TARTRATE 25 MG TABLET GT SCH ×2 (09:10→16:21)
[2021-03-17] MEDS: FERROUS SULFATE (325 MG) 325 MG/TAB TABLET GT SCH (09:10)
[2021-03-17] MEDS: CHOLECALCIFEROL (VITAMIN D 3) 400 UNIT TABLET GT SCH (09:10)
[2021-03-17] MEDS: PANTOPRAZOLE 40 MG/PACK PACK GT SCH ×2 (09:10→16:21)
[2021-03-17] MEDS: Z GUARD REMEDY 2 OZ OINT TP SCH (09:13)
[2021-03-17] MEDS: THERAHONEY GEL 1.5 OZ TUBE TP SCH (09:14)
[2021-03-17] MEDS: DAKINS QUARTER STRENGTH (0.125%) 480 ML BOTTLE TOP SCH (09:14)
[2021-03-17 12:00] VITALS: BP 128/70
[2021-03-17 16:00] VITALS: BP 127/68
--- NOTE | 2021-03-17 18:51 | NUR ---
RN CLOSING NOTE PT IS IN BED, ASLEEP. PT OPENS EYES, NON-VERBAL. ON MECHANICAL VENTILATOR, TOLERATING WELL. HEAD OF BEAD ELEVATED. NO S/SX OF DISTRESS OR FACIAL GRIMACING NOTED. G-TUBE AND OH CATHETER PATENT AND INTACT. IV ACCESS (3) PATENT AND INTACT. SAFETY MEASURES MAINTAINED WITH BED LOCKED AT LOW POSITION, SIDE RAILS UP X 2. PT KEPT COMFORTABLE AND DRY. ALL NEEDS MET. WILL ENDORSE CONTINUITY OF CARE TO ONCOMING SHIFT.
--- NOTE | 2021-03-17 19:40 | NUR ---
ACID DIPPER OPENING RECEIVED PATIENT IN BED, WITH EYES CLOSED BUT EASY TO AROUSE. OBTUNDED. NO S/S OF APPARENT DISTRESS VENTILATOR DEPENDENT. NOT EXHIBITING PAIN VIA FLACC. IV NS RUNNING AT 75CC/HR AT THIS TIME. TELE MONITOR READING SR 91 BPM. OH CATHETER DRAINING CLEAR, YELLOW URINE. G-TUBE NOTED IN PLACE RUNNING GLUCERNA 1.2 @45CC/HR -- TOLERATING. SAFETY IN PLACE. WILL CONTINUE WITH PLAN OF CARE.
[2021-03-17 20:00] VITALS: BP 135/64
--- NOTE | 2021-03-17 21:27 | NUR ---
telehealth nurse educator note patient temperature 100.6. Cooling measures initiated for now. Will reassess later.
[2021-03-17] MEDS: INSULIN GLARGINE, 100 UNIT/ML CARTRIDGE SQ SCH (22:22)
[2021-03-18] VITALS (7 sets, daily range): BP systolic 123–141; BP diastolic 56–64
[2021-03-18] MEDS: BLOOD SUGAR DIAGNOSTIC 1 EACH STRIP IN SCH ×4 (00:04→17:38)
[2021-03-18] MEDS: PIPERACILLIN /TAZOBACTAM 2.25 G in IV D5W 50 ML IV SCH ×3 (00:06→12:05)
--- NOTE | 2021-03-18 00:20 | NUR ---
CLIENT SERVICES COORDINATOR NOTE TEMP. WENT DOWN TO 99.8. WILL CONTINUE TO MONITOR.
[2021-03-18] MEDS: INSULIN REGULAR, HUMAN 100 UNIT/ML 3 ML VIAL SQ PRN (06:39)
--- NOTE | 2021-03-18 07:22 | NUR ---
FIBERGLASS PIPE COVERING SUPERVISOR CLOSING NOTE PATIENT IN BED WITH EYES CLOSED. EYE OPENING TO STIMULI. OBTUNDED/NON-VERBAL. NO S/S OF APPARENT DISTRESS-- VENT DEPENDENT. TELE MONITOR READING SR ALL THROUGHOUT SHIFT. NO FLUIDS RUNNING AT THIS TIME. G-TUBE RUNNING GLUCERNA 1.2 CC/HR. NOT EXHIBITING PAIN VIA FLACC. DRESSING DRY AND INTACT. SCHEDULED MEDS ADMINISTERED. OH CATHETER DRAINING YELLOW, CLEAR URINE-- EMPTIED 850 CC. NEEDS ATTENDED. SAFETY IN PLACE. ENDORSED TO MORNING SHIFT RN FOR CONTINUITY OF CARE.
--- NOTE | 2021-03-18 07:28 | NUR ---
RN OPEN NOTE RECEIVED PT IN BED, ASLEEP. PT OPENS EYES, NON-VERBAL. ON MECHANICAL VENTILATOR, TOLERATING WELL. HEAD OF BEAD ELEVATED. NO S/SX OF DISTRESS OR FACIAL GRIMACING NOTED. G-TUBE IN PLACE RUNNING GLUCERNA 45CC/HR, OH CATHETER BELOW THE PT, PATENT AND INTACT. IV ACCESS (3) DANAE MIDLINE, RFA#22 LAC#18 FLUSHING WELL. SAFETY MEASURES IN PLACE WITH BED LOCKED AND IN LOWEST POSITION, SIDE RAILS UP, WILL CONTINUE TO MONITOR
[2021-03-18] MEDS: IPRATROPIUM/ALBUTEROL INHALER IH SCH ×3 (07:35→20:26)
[2021-03-18 08:36] LABS: BASOPHILS # (AUTO) 0.1 K/uL (0.0-0.2); BASOPHILS % (AUTO) 0.7 % (0.0-2.0); EOSINOPHILS % (AUTO) 0.2 % (0.0-6.0); HEMATOCRIT 23 % (33-45); HEMOGLOBIN 7.8 g/dL (11.5-14.8); LYMPHOCYTES % (AUTO) 16.9 % (20.0-44.0); MEAN CORPUSCULAR HGB CONC 34 g/dl (31.0-36.0); MEAN CORPUSCULAR VOLUME 97 fL (82-100); MONOCYTES # (AUTO) 0.4 K/uL (0.1-1.30); MONOCYTES % (AUTO) 3.7 % (2.0-12.0); NEUTROPHILS # (AUTO) 9.1 K/uL (1.8-8.9); NEUTROPHILS % (AUTO) 78.5 % (43.0-81.0); PLATELET COUNT (AUTO) 388 K/uL (150-450); RED BLOOD CELL COUNT(AUTO) 2.36 MIL/uL (4.0-5.2); WHITE BLOOD COUNT (AUTO) 11.6 K/uL (4.3-11.0)
[2021-03-18] MEDS: METOPROLOL TARTRATE 25 MG TABLET GT SCH ×2 (08:51→17:00)
[2021-03-18] MEDS: PANTOPRAZOLE 40 MG/PACK PACK GT SCH ×2 (08:51→17:00)
[2021-03-18] MEDS: CHLORHEXIDINE GLUCONATE 15 ML UDC MM SCH ×2 (08:51→17:00)
[2021-03-18] MEDS: DOCUSATE SODIUM 100 MG CAPSULE PO SCH ×2 (08:52→17:00)
[2021-03-18] MEDS: CHOLECALCIFEROL (VITAMIN D 3) 400 UNIT TABLET GT SCH (08:52)
[2021-03-18] MEDS: AMLODIPINE BESYLATE 5 MG TABLET GT SCH (08:52)
[2021-03-18] MEDS: FERROUS SULFATE (325 MG) 325 MG/TAB TABLET GT SCH (08:52)
[2021-03-18] MEDS: VIT B CMPLX 3/FA/VIT C/BIOTIN 1 TAB TABLET GT SCH (08:52)
[2021-03-18] MEDS: ASCORBIC ACID 500 MG TABLET GT SCH (08:52)
[2021-03-18] MEDS: DAKINS QUARTER STRENGTH (0.125%) 480 ML BOTTLE TOP SCH (08:54)
[2021-03-18] MEDS: THERAHONEY GEL 1.5 OZ TUBE TP SCH (08:54)
[2021-03-18] MEDS: Z GUARD REMEDY 2 OZ OINT TP PRN (08:55)
--- NOTE | 2021-03-18 08:55 | NUR ---
per [facility] covid negative.
[2021-03-18] MEDS: Z GUARD REMEDY 2 OZ OINT TP SCH (08:56)
[2021-03-18 10:42] LABS: CALCIUM, SERUM 8.5 mg/dL (8.5-10.1); CREATININE 1.9 mg/dL (0.6-1.3)
[2021-03-18 10:46] LABS: POTASSIUM 4.6 mmol/L (3.5-5.1)
[2021-03-18 10:48] LABS: ALBUMIN 1.9 g/dL (3.4-5.0); BILIRUBIN,TOTAL 0.4 mg/dL (0.2-1.0); TOTAL PROTEIN, SERUM 7.1 g/dL (6.4-8.2)
--- NOTE | 2021-03-18 10:54 | NUR ---
RN note g-tube is block doctor notified to reinsertion
[2021-03-18] MEDS ORDERED: IV D5/0.45 NACL 1,000 ML IV ONE (15:30)
--- NOTE | 2021-03-18 15:30 | NUR ---
RN NOTE ORDER RECEIVED FROM THE DOCTOR FOR DS 1/2 NS
--- NOTE | 2021-03-18 16:36 | NUR ---
RN NOTE TEMPERATURE 99.6 COOLING MEASURES APPLIED
[2021-03-18] MEDS ORDERED: ACETAMINOPHEN 650 MG/SUPP.RECT RC PRN (17:00)
--- NOTE | 2021-03-18 17:02 | NUR ---
RN NOTES UNABLE TO ADMINISTER PO MEDs G-TUBE IS OUT
[2021-03-18] MEDS ORDERED: CEFTRIAXONE 1 G in IV D5W 50 ML IV SCH (18:00)
--- NOTE | 2021-03-18 18:59 | NUR ---
RN CLOSING NOTE PT REMAINS IN BED, ASLEEP. PT OPENS EYES, NON-VERBAL. ON MECHANICAL VENTILATOR, TOLERATING WELL. HEAD OF BEAD ELEVATED. NO S/SX OF DISTRESS OR FACIAL GRIMACING NOTED. G-TUBE BLOCKED DOCTOR NOTIFIED, WILL REINSERT IT TOMORROW, KEEP NPO AFTER MIDNIGHT FOR PROCEDURE, CONTACT PRECAUTION IN PLACE, OH CATHETER BELOW THE PT, PATENT AND INTACT. IV ACCESS (3) DANAE MIDLINE, RFA#22 LAC#18 FLUSHING WELL. PT KEPT CLEAN AND COMFORTABLE WOUND CARE DONE, SAFETY MEASURES IN PLACE WITH BED LOCKED AND IN LOWEST POSITION, SIDE RAILS UP, WILL ENDORSE TO MAT INSPECTORMANAGER SUSTAINABILITY
--- NOTE | 2021-03-18 19:44 | NUR ---
RN OPENING NOTES: RECEIVED PT IN BED SLEEPING, BUT EASILY AROUSABLE. OPEN BOTH EYES. NON-VERBAL. ON TRACH WITH MECHANICAL VENTILATION SETTING: AC-16, TV:500, FIO2-40%, PEEP- 5. BREATHING EVEN AND UNLABORED. FEEDING ON HOLD DUE TO GTUBE BLOCKAGE. INSERT A NEW ONE IN THE MORNING. WILL BE NPO AFTER MIDNIGHT. IV ACCESS (3) DANAE MIDLINE, RFA#22 LAC#18. D5 W/ 1/2 NS RUNNING AT 70CC/HR. OH CATHETER INTACT W/ YELLOWISH URINE. NO FACIAL GRIMACING NOTED. NO ACUTE DISTRESS. ALL SAFETY MEASURE IN PLACE. 3X SIDE RAILS UP. DORYS IN LOW POSITION AND LOCKED. PLACE CALL LIGHT WITH IN REACH. WILL CONTINUE TO MONITOR
[2021-03-18] MEDS: INSULIN GLARGINE, 100 UNIT/ML CARTRIDGE SQ SCH (22:28)
--- NOTE | 2021-03-18 22:30 | NUR ---
PT'S BLOOD SUGAR 162, LANTUS 16 UNITS GIVEN PER ORDER. NO S/S OF HYPER/HYPOGLYCEMIA. WILL CONTINUE TO MONITOR
--- NOTE | 2021-03-18 23:11 | NUR ---
RN NOTES: PATIENT TRANSFERRED TO [address] [place] [address] BED 1. ACCOMPANIED BY CHARGE NURSE, CAPACITY ANALYST AND 2 RT WITH ALL ACLS PROTOCOL. GAVE REPORT TO NUBIA JONES. PT'S V/S WNL. NO RESPIRATORY DISTRESS. STABLE WITH MECHANICAL VENT SETTING.
--- NOTE | 2021-03-18 23:15 | NUR ---
DRAW FRAME TENDERSOCIAL SERVICE WORKER NOTE PATIENT TRANSFERRED FROM [place] IN STABLE CONDITION, RECEIVED REPORT FROM ROBERT PORTILLO. PT IS NON-VERBAL BUT OPENS EYES, PT OBTUNDED. PT ON VENT WITH SETTINGS PORTEX 8, AC: 16, TV: 500, FIO2: 40%, AND PEEP: 5. PT TOLERATING WELL, NO S/S OF DISTRESS OR SOB NOTED, BREATHING EVEN AND UNLABORED. PT APPEARS COMFORTABLE, NO S/S OF PAIN. PT ON EXTERNAL COMMUNITY DEVELOPMENT DIRECTOR READING SINUS RHYTHM, HR: 98. OH CATHETER IN PLACE, DRAINING YELLOW URINE. DRESSING ON GTUBE CLEAN, DRY AND INTACT. PATIENT NPO FOR GTUBE REINSERTION TOMORROW. IV ACCESS ON DANAE MIDLINE RUNNING D5 1/2 NS @ 70 ML/HR. DRESSING ON BILATERAL FEET AND SACRUM CLEAN, DRY AND INTACT. SAFETY MEASURES IN PLACE: CALL LIGHT WITHIN REACH, SIDE RAILS UP X 3, BED LOCKED IN LOW POSITION, HOB ELEVATED, BED ALARM ON. WILL CONTINUE TO MONITOR PATIENT
--- NOTE | 2021-03-18 23:44 | NUR ---
RT NOTE Transferred patient from room 118 to 322 bed 1. Plugged into red outlet. Alarms on and audible. Ambu bag and back up trach at bedside. No SOB noted during transport. Will continue to monitor throughout the shift.
[2021-03-19] VITALS: BP 140/72
--- NOTE | 2021-03-19 00:30 | NUR ---
RETAIL ASSOCIATE MANAGER BILINGUAL NOTE PATIENT'S BLOOD SUGAR 174. NO INSULIN GIVEN DUE TO PATIENT BEING NPO FOR G TUBE REINSERTION
[2021-03-19] MEDS: BLOOD SUGAR DIAGNOSTIC 1 EACH STRIP IN SCH ×4 (00:44→17:37)
[2021-03-19] MEDS: IPRATROPIUM/ALBUTEROL INHALER IH SCH ×4 (01:43→20:01)
[2021-03-19 04:00] VITALS: BP 157/88
[2021-03-19] MEDS ORDERED: SILVER NITRATE APPLICATOR 1 EA BOX TP PRN (05:00)
--- NOTE | 2021-03-19 06:36 | NUR ---
BOBTAIL DRIVER CLOSING NOTE PT IS NON-VERBAL BUT OPENS EYES, PT IS OBTUNDED. PT ON VENT WITH SETTINGS PORTEX 8, AC: 16, TV: 500, FIO2: 40%, AND PEEP: 5. PT TOLERATING WELL, NO S/S OF DISTRESS OR SOB NOTED, BREATHING EVEN AND UNLABORED. PT APPEARS COMFORTABLE, NO S/S OF PAIN. PT ON EXTERNAL WAX ROOM SUPERVISOR READING SINUS RHYTHM, HR: 96. OH CATHETER IN PLACE, DRAINING YELLOW URINE. DRESSING ON G-TUBE CLEAN, DRY AND INTACT. PATIENT NPO FOR G-TUBE REINSERTION TODAY. BLOOD SUGAR 170 THIS AM BUT NO INSULIN GIVEN DUE TO NPO STATUS. IV ACCESS ON DANAE MIDLINE RUNNING D5 1/2 NS @ 70 ML/HR. WOUND PHOTOS TAKEN AND WOUND CARE PERFORMED. TURNED PATIENT Q2H. SAFETY MEASURES IN PLACE: CALL LIGHT WITHIN REACH, SIDE RAILS UP X 3, BED LOCKED IN LOW POSITION, HOB ELEVATED, BED ALARM ON. WILL ENDORSE TO DAY SHIFT NURSE FOR CONTINUITY OF CARE
[2021-03-19 06:42] LABS: ALBUMIN 1.8 g/dL (3.4-5.0); BILIRUBIN,TOTAL 0.4 mg/dL (0.2-1.0); CALCIUM, SERUM 8.4 mg/dL (8.5-10.1); CREATININE 1.9 mg/dL (0.6-1.3); POTASSIUM 4.3 mmol/L (3.5-5.1); TOTAL PROTEIN, SERUM 6.9 g/dL (6.4-8.2)
[2021-03-19 07:46] LABS: BASOPHILS # (AUTO) 0.1 K/uL (0.0-0.2); BASOPHILS % (AUTO) 0.5 % (0.0-2.0); EOSINOPHILS % (AUTO) 0.3 % (0.0-6.0); HEMATOCRIT 26 % (33-45); HEMOGLOBIN 8.6 g/dL (11.5-14.8); LYMPHOCYTES # (AUTO) 2.9 K/uL (0.8-4.8); LYMPHOCYTES % (AUTO) 23.8 % (20.0-44.0); MEAN CORPUSCULAR HGB CONC 33 g/dl (31.0-36.0); MEAN CORPUSCULAR VOLUME 98 fL (82-100); MONOCYTES # (AUTO) 0.6 K/uL (0.1-1.30); NEUTROPHILS # (AUTO) 8.6 K/uL (1.8-8.9); NEUTROPHILS % (AUTO) 70.4 % (43.0-81.0); PLATELET COUNT (AUTO) 467 K/uL (150-450); RED BLOOD CELL COUNT(AUTO) 2.67 MIL/uL (4.0-5.2); WHITE BLOOD COUNT (AUTO) 12.2 K/uL (4.3-11.0)
--- NOTE | 2021-03-19 07:50 | NUR ---
RN note Patient received in bed, obtunded, able to responds physical stimuli. Skin is warm to touch, keep clean/dry, intact mid line on left upper arm. Patient does no appears pain or discomfort at this time. Patient able to reposition self. Respiratory even and unlabored with ventilator, no SOB observed. Call light within reach, kept elated HOB and lower bed position for safety. Will continue to monitor.
[2021-03-19 08:19] VITALS: BP 136/70
[2021-03-19] MEDS: FERROUS SULFATE (325 MG) 325 MG/TAB TABLET GT SCH (09:00)
[2021-03-19] MEDS: CHLORHEXIDINE GLUCONATE 15 ML UDC MM SCH ×2 (09:00→17:38)
[2021-03-19] MEDS: PANTOPRAZOLE 40 MG/PACK PACK GT SCH ×2 (09:00→17:36)
[2021-03-19] MEDS: THERAHONEY GEL 1.5 OZ TUBE TP SCH (09:00)
[2021-03-19] MEDS: ASCORBIC ACID 500 MG TABLET GT SCH (09:00)
[2021-03-19] MEDS: AMLODIPINE BESYLATE 5 MG TABLET GT SCH (09:00)
[2021-03-19] MEDS: Z GUARD REMEDY 2 OZ OINT TP SCH (09:00)
[2021-03-19] MEDS: VIT B CMPLX 3/FA/VIT C/BIOTIN 1 TAB TABLET GT SCH (09:00)
[2021-03-19] MEDS: CHOLECALCIFEROL (VITAMIN D 3) 400 UNIT TABLET GT SCH (09:00)
[2021-03-19] MEDS: DOCUSATE SODIUM 100 MG CAPSULE PO SCH ×2 (09:00→17:36)
[2021-03-19] MEDS: METOPROLOL TARTRATE 25 MG TABLET GT SCH ×2 (09:00→17:36)
--- NOTE | 2021-03-19 09:05 | NUR ---
Patient's G tube obstructed, will hold due meds.
[2021-03-19] MEDS: DAKINS QUARTER STRENGTH (0.125%) 480 ML BOTTLE TOP SCH (10:55)
[2021-03-19 12:08] VITALS: BP 156/76
--- NOTE | 2021-03-19 12:21 | NUR ---
G-tube replaced by DR. Bah, no need xray conformation according Dr. Wisdom. Will resume g tube formula.
[2021-03-19 16:14] VITALS: BP 131/59
[2021-03-19] MEDS: PIPERACILLIN /TAZOBACTAM 2.25 G in IV D5W 50 ML IV SCH (18:19)
--- NOTE | 2021-03-19 18:59 | NUR ---
RN Closing Note Patient in bed, obtunded. Respiratory even and unabashed with ventilator. Skin is warm to touch, keep clean/dry, intact IV and mid line. Patient started G tube feeding and tolerated, no residual observed. Kept elevated HOB for airway and lower position of the bed for safety. Call light within reach, all needs met. will endorse oilfield plant and field operator.
--- NOTE | 2021-03-19 19:25 | NUR ---
TELE/RN OPENING NOTES PT RESTING IN BED, OBTUNDED. ON VENT AND TOLERATING SETTINGS WELL. O2 SAT 99%. IV SITE: R-FA #22G AND DANAE MIDLINE INTACT/PATENT/FLUSHES WELL. CONNECTED TO TELE MONITOR, READING SR, HR 92. GT IN PLACE/PATENT, RESIDUALS 20CC; WITH GLUCERNA @45CC/HR, TYRONE WELL, WITH NO N/V NOTED. F/C INTACT, DRAINING CLEAR YELLOW URINE. PT IN NO ACUTE DISTRESS. SAFETY MEASURES IN PLACE, BED IN LOWEST LOCKED POSITION, S/R UPX2, CALL LIGHT WITHIN REACH. WILL CONT TO MONITOR.
[2021-03-19 20:00] VITALS: BP 125/64
[2021-03-19] MEDS: INSULIN GLARGINE, 100 UNIT/ML CARTRIDGE SQ SCH (22:05)
[2021-03-20] VITALS: BP 129/66
[2021-03-20] MEDS: BLOOD SUGAR DIAGNOSTIC 1 EACH STRIP IN SCH ×4 (00:43→19:06)
[2021-03-20] MEDS: PIPERACILLIN /TAZOBACTAM 2.25 G in IV D5W 50 ML IV SCH ×4 (00:43→17:16)
[2021-03-20] MEDS: INSULIN REGULAR, HUMAN 100 UNIT/ML 3 ML VIAL SQ PRN ×3 (00:52→16:54)
[2021-03-20] MEDS: IPRATROPIUM/ALBUTEROL INHALER IH SCH ×3 (01:46→13:30)
[2021-03-20 04:00] VITALS: BP 131/67
[2021-03-20 06:19] LABS: BASOPHILS # (AUTO) 0.1 K/uL (0.0-0.2); BASOPHILS % (AUTO) 0.5 % (0.0-2.0); EOSINOPHILS % (AUTO) 0.7 % (0.0-6.0); HEMATOCRIT 31 % (33-45); HEMOGLOBIN 10.1 g/dL (11.5-14.8); LYMPHOCYTES # (AUTO) 3.6 K/uL (0.8-4.8); LYMPHOCYTES % (AUTO) 27.8 % (20.0-44.0); MEAN CORPUSCULAR HGB CONC 33 g/dl (31.0-36.0); MEAN CORPUSCULAR VOLUME 97 fL (82-100); MONOCYTES # (AUTO) 0.6 K/uL (0.1-1.30); MONOCYTES % (AUTO) 4.7 % (2.0-12.0); NEUTROPHILS # (AUTO) 8.6 K/uL (1.8-8.9); NEUTROPHILS % (AUTO) 66.3 % (43.0-81.0); PLATELET COUNT (AUTO) 526 K/uL (150-450); RED BLOOD CELL COUNT(AUTO) 3.13 MIL/uL (4.0-5.2); WHITE BLOOD COUNT (AUTO) 12.9 K/uL (4.3-11.0)
[2021-03-20 06:42] LABS: CALCIUM, SERUM 9.3 mg/dL (8.5-10.1); CREATININE 1.8 mg/dL (0.6-1.3); POTASSIUM 4.5 mmol/L (3.5-5.1)
[2021-03-20 06:47] LABS: ALBUMIN 2.1 g/dL (3.4-5.0); BILIRUBIN,TOTAL 0.3 mg/dL (0.2-1.0); TOTAL PROTEIN, SERUM 7.7 g/dL (6.4-8.2)
--- NOTE | 2021-03-20 06:57 | NUR ---
CHEMISTRY LECTURER CLOSING NOTES PT WITH NO ACUTE EVENTS DURING THE NIGHT. TOLERATING VENT SETTINGS WELL. TELE MONITOR READING SR, HR 96. ONGOING GTF OF GLUCERNA 1.2 @45ML/HR. TYRONE WELL WITH NO N/V NOTED. GT INTACT/PATENT, RESIDUALS 10CC. F/C INTACT, DRAINING CLEAR YELLOW URINE, OUTPUT 650ML THIS SHIFT. KEPT PT CLEAN AND DRY, REPOSITIONED Q2HR AND NEEDED. PT IN NO ACUTE DISTRESS. SAFETY MEASURES MAINTAINED.
--- NOTE | 2021-03-20 07:30 | NUR ---
RN OPENING NOTES PT IS IN BED AWAKE, WITH SPONTANEOUS EYE MOVEMENT. RESPONDS TO VERBAL & PHYSICAL STIMULI, NONVERBAL. NO APPARENT SIGNS OF RESPIRATORY DISTRESS OR DISCOMFORT AT THIS TIME. TOLERATING VENT SETTINGS WELL PORTEX 8, AC 16, TV 500, FiO2 30%, PEEP 5. TELE MONITOR READING SR, HR 94. ONGOING GTF OF GLUCERNA 1.2 @45ML/HR. TYRONE WELL WITH NO N/V NOTED. GT IS INTACT/PATENT. F/C IS INTACT, DRAINING CLEAR YELLOW URINE. SAFETY MEASURES IN PLACE: BED LOCKED, LOWEST POSITION, SIDE RAILS UP X2, CALL LIGHT WITHIN REACH. WILL CONTINUE TO MONITOR PT.
[2021-03-20 08:00] VITALS: BP 148/78
[2021-03-20] MEDS: AMLODIPINE BESYLATE 5 MG TABLET GT SCH (08:16)
[2021-03-20] MEDS: CHLORHEXIDINE GLUCONATE 15 ML UDC MM SCH ×2 (08:16→16:51)
[2021-03-20] MEDS: PANTOPRAZOLE 40 MG/PACK PACK GT SCH ×2 (08:16→16:51)
[2021-03-20] MEDS: DOCUSATE SODIUM 100 MG CAPSULE PO SCH ×2 (08:17→16:52)
[2021-03-20] MEDS: METOPROLOL TARTRATE 25 MG TABLET GT SCH ×2 (08:17→16:52)
[2021-03-20] MEDS: FERROUS SULFATE (325 MG) 325 MG/TAB TABLET GT SCH (08:18)
[2021-03-20] MEDS: CHOLECALCIFEROL (VITAMIN D 3) 400 UNIT TABLET GT SCH (08:18)
[2021-03-20] MEDS: VIT B CMPLX 3/FA/VIT C/BIOTIN 1 TAB TABLET GT SCH (08:18)
[2021-03-20] MEDS: ASCORBIC ACID 500 MG TABLET GT SCH (08:18)
[2021-03-20] MEDS: Z GUARD REMEDY 2 OZ OINT TP PRN ×2 (08:45→09:11)
[2021-03-20] MEDS: DAKINS QUARTER STRENGTH (0.125%) 480 ML BOTTLE TOP SCH (08:45)
[2021-03-20] MEDS: THERAHONEY GEL 1.5 OZ TUBE TP SCH (09:13)
[2021-03-20] MEDS: Z GUARD REMEDY 2 OZ OINT TP SCH (09:15)
--- NOTE | 2021-03-20 09:35 | NUR ---
WOUND CARE CONSULT: PT SEEN FOR LEFT EAR WOUND/LESION WITH SOME PURULENT DRAINAGE AND LEFT BUTTOCK INTACT DEEP TISSUE INJURY. RECOMMENDATIONS MADE FOR SKIN PROTECTION AND WOUND CARE. DISCUSSED WITH NURSING STAFF AND SURGICAL TEAM CURRENTLY ON CASE. PT NOTED TO HAVE MULTIPLE CO-MORBIDITIES INCLUDING SEPSIS, RESPIRATORY FAILURE (ON VENTILATOR), ACUTE KIDNEY INJURY, ANEMIA, PRESSURE ULCERS PRESENT ON ADMISSION, DIABETES AND HISTORY OF LIVER NEOPLASM. DUE TO MULTIPLE CO-MORBIDITIES, FURTHER SKIN BREAKDOWN MAY BE UNAVOIDABLE. PT IS ON [facility] LOW AIRLOSS BED. MD IN AGREEMENT WITH PLAN OF CARE.
[2021-03-20] MEDS ORDERED: NEOMY SULF/BACITRAC ZN/POLY 15 GM TUBE TP SCH (10:00)
[2021-03-20 12:00] VITALS: BP 141/66
[2021-03-20] MEDS: ACETAMINOPHEN 325 MG TABLET PO PRN (12:34)
[2021-03-20 16:28] VITALS: BP 132/66
[2021-03-20 16:52] VITALS: BP 132/66
[2021-03-20] MEDS ORDERED: COLL30OI TP (17:33)
[2021-03-20] MEDS ORDERED: MIDO5TAB4 PO (17:33)
[2021-03-20] MEDS ORDERED: PIPE2.257 IV (17:33)
[2021-03-20] MEDS ORDERED: SODI473S8 TOP (17:33)
== END 2021-03-20 18:04 | DRG 710 ==
LOC: ER 13:45 → MEDSG1 16:42 → TELE1 16:59 → TELE-TD 18:31 → TELE1 03-16 16:55 → TELE 03-18 23:14
PROVIDERS: ADMIT Internal Medicine; ATTEND Nurse Practitioner Acute Care
PROC: 5A1955Z Respiratory Ventilation, Greater than 96 Consecutive Hours (ICD-10-PCS; principal; 2021-03-14)
PROC: 30233N1 Transfusion of Nonautologous Red Blood Cells into Peripheral Vein, Percutaneous Approach (ICD-10-PCS; 2021-03-14)
PROC: 05HC33Z Insertion of Infusion Device into Left Basilic Vein, Percutaneous Approach (ICD-10-PCS; 2021-03-15)
PROC: 0QB10ZZ Excision of Sacrum, Open Approach (ICD-10-PCS; 2021-03-20)
DX: A41.9 Sepsis, unspecified organism (principal); G93.40 Encephalopathy, unspecified; J96.10 Chronic respiratory failure, unspecified whether with hypoxia or hypercapnia; L89.154 Pressure ulcer of sacral region, stage 4; E43 Unspecified severe protein-calorie malnutrition; N17.9 Acute kidney failure, unspecified; Z99.11 Dependence on respirator [ventilator] status; Z93.0 Tracheostomy status; R53.2 Functional quadriplegia; L97.429 Non-pressure chronic ulcer of left heel and midfoot with unspecified severity; D64.9 Anemia, unspecified; E11.22 Type 2 diabetes mellitus with diabetic chronic kidney disease; I12.9 Hypertensive chronic kidney disease with stage 1 through stage 4 chronic kidney disease, or unspecified chronic kidney disease; E86.0 Dehydration; M24.561 Contracture, right knee; N39.0 Urinary tract infection, site not specified; Z79.4 Long term (current) use of insulin; R13.10 Dysphagia, unspecified; Z20.822 Contact with and (suspected) exposure to COVID-19; Z93.1 Gastrostomy status; N18.30 Chronic kidney disease, stage 3 unspecified; M24.562 Contracture, left knee; Z86.73 Personal history of transient ischemic attack (TIA), and cerebral infarction without residual deficits; Z79.51 Long term (current) use of inhaled steroids; Z79.899 Other long term (current) drug therapy; F03.90 Unspecified dementia, unspecified severity, without behavioral disturbance, psychotic disturbance, mood disturbance, and anxiety; E11.40 Type 2 diabetes mellitus with diabetic neuropathy, unspecified; E11.65 Type 2 diabetes mellitus with hyperglycemia; E11.622 Type 2 diabetes mellitus with other skin ulcer; E11.621 Type 2 diabetes mellitus with foot ulcer; E87.1 Hypo-osmolality and hyponatremia; E86.1 Hypovolemia; E87.6 Hypokalemia; Z85.09 Personal history of malignant neoplasm of other digestive organs; B96.4 Proteus (mirabilis) (morganii) as the cause of diseases classified elsewhere; L97.329 Non-pressure chronic ulcer of left ankle with unspecified severity; L97.529 Non-pressure chronic ulcer of other part of left foot with unspecified severity; L97.519 Non-pressure chronic ulcer of other part of right foot with unspecified severity; M62.562 Muscle wasting and atrophy, not elsewhere classified, left lower leg; M62.561 Muscle wasting and atrophy, not elsewhere classified, right lower leg
CPT/HCPCS: 31720; 36415; 71045-TC; 72192-TC; 80048-TC; 80053-TC; 80076-TC; 80202-TC; 81001; 82272-TC; 82962-TC; 83605-TC; 83735-TC; 84100-TC; 84484-TC; 85025-TC; 85027-TC; 85652-TC; 85730-TC; 86140-TC; 86850-TC; 87040-TC; 87070-TC; 87081-TC; 87086-TC; 87186-TC; 94002-TC; 94003-TC; 94640; 94664; 94760-TC; 94762-TC; 94799-TC; A4217; A6253; A6403; C9113; G0378; J0692; J0696; J1200; J1815; J2543; J3370; J3490; J7030; J7050; J7060; P9016; U0003

== ENCOUNTER 2021-07-04 11:44 | Inpatient (IN) | payer MEDICAID ==
[~2021-07-04] VITALS: Ht 152.4 cm; Wt 49.4 kg
[~2021-07-04 11:44] MED LIST changes: +ACET-2605 GT; -ALBU2.5V38 IH; -AMIN30LI2 GT; +AMLO-212 GT; +CHLO473M5 MM; +CLON0.1T PO; +COLL30OI TP; -IPRA3AMP23 IH; +IPRA4AER IH; +MAGN400O6 GT; +METO25TA20 GT; +MIDO5TAB4 PO; +NA P133E RC; +NUT.237L31 GT; -NUT.237L67 GT; +PIPE2.257 IV; -POTA20PA3 GT; +SODI473S8 TOP
[2021-07-04] MEDS ORDERED: VANCOMYCIN 1 GM in IV D5W 250 ML IV ONE (12:00)
[2021-07-04] MEDS ORDERED: CEFEPIME 1 GM in IV D5W 50 ML IV ONE (12:00)
--- NOTE | 2021-07-04 12:00 | NUR ---
PT BIBA WITH R WRIST #20 GAUGE IV. R FA #20G IV PLACED RUNNING 1.5NS BOLUS.
--- NOTE | 2021-07-04 12:00 | NUR ---
URINE COLLECTED AND COVID SWAB DONE SENT TO LAB
--- NOTE | 2021-07-04 12:03 | NUR ---
MOVE SHEET SUBMITTED AND CALLED FOR TELE BED.
[2021-07-04] MEDS ORDERED: ACETAMINOPHEN 650 MG/SUPP.RECT RC ONE ×2 (12:05→12:30)
--- NOTE | 2021-07-04 12:06 | NUR ---
[facility] CALLED PROJECT PRODUCTION ENGINEER PAGED.
[2021-07-04] MEDS ORDERED: IV NS 0.9% 1,000 ML BAG IV ONE (12:30)
[2021-07-04] MEDS ORDERED: PIPERACILLIN /TAZOBACTAM 3.375 G in IV D5W 50 ML IV ONE (12:30)
[2021-07-04 12:35] LABS: BASOPHILS # (AUTO) 0.1 K/uL (0.0-0.2); BASOPHILS % (AUTO) 0.4 % (0.0-2.0); EOSINOPHILS % (AUTO) 0.1 % (0.0-6.0); HEMATOCRIT 21 % (33-45); LYMPHOCYTES % (AUTO) 6.7 % (20.0-44.0); MEAN CORPUSCULAR HGB CONC 33 g/dl (31.0-36.0); MEAN CORPUSCULAR VOLUME 100 fL (82-100); MONOCYTES # (AUTO) 0.7 K/uL (0.1-1.30); MONOCYTES % (AUTO) 2.2 % (2.0-12.0); NEUTROPHILS # (AUTO) 27.1 K/uL (1.8-8.9); NEUTROPHILS % (AUTO) 90.6 % (43.0-81.0); PLATELET COUNT (AUTO) 512 K/uL (150-450); WHITE BLOOD COUNT (AUTO) 29.9 K/uL (4.3-11.0)
[2021-07-04] MEDS ORDERED: IPRA4AER IH (12:45)
[2021-07-04] MEDS ORDERED: HYDR-4303 GT (12:45)
[2021-07-04] MEDS ORDERED: FERR300L GT (12:45)
[2021-07-04] MEDS ORDERED: CRAN3875 GT (12:45)
[2021-07-04] MEDS ORDERED: MIDO5TAB4 GT (12:45)
[2021-07-04 12:59] LABS: HEMOGLOBIN 6.8 g/dL (11.5-14.8)
--- NOTE | 2021-07-04 13:00 | NUR ---
LAB REPORTED BUN [address] LOMAX AWARE
[2021-07-04 13:06] LABS: ALANINE AMINOTRANSFERASE 15 U/L (12-78); ALBUMIN 2.7 g/dL (3.4-5.0); ALKALINE PHOSPHATASE 167 U/L (46-116); ASPARTATE AMINOTRANSFERASE 12 U/L (15-37); BILIRUBIN,DIRECT 0.2 mg/dL (0.0-0.2); BILIRUBIN,TOTAL 0.4 mg/dL (0.2-1.0); CALCIUM, SERUM 9.6 mg/dL (8.5-10.1); CARBON DIOXIDE 21 mmol/L (21-32); CHLORIDE 92 mmol/L (98-107); CREATININE 2.1 mg/dL (0.6-1.3); GLUCOSE 250 mg/dL (74-106); POTASSIUM 5.3 mmol/L (3.5-5.1); SODIUM SERUM 126 mmol/L (136-145); TOTAL PROTEIN, SERUM 8.8 g/dL (6.4-8.2)
[2021-07-04 13:10] LABS: UREA NITROGEN, BLOOD 118 mg/dL (7-18)
--- NOTE | 2021-07-04 13:21 | NUR ---
rt note patient received on vent settings per facility. portex 8 trach tube patent and secured. vent alarms on and audible. vent plugged in red outlets. bvm bedside. no sob noted at this time. Addendum: 07/04/21 at 1323 by YASSINE DANIELS RT Amended: Links added.
--- NOTE | 2021-07-04 13:44 | NUR ---
GOT BED [id number]
--- NOTE | 2021-07-04 13:51 | NUR ---
Report given to ROBERT Otto [id number].
[2021-07-04 13:59] LABS: BILIRUBIN,URINE NEGATIVE (NEGATIVE); COLOR,URINE YELLOW (YELLOW); LEUKOCYTE ESTERASE ,URINE LARGE (NEGATIVE); NITRITE, URINE NEGATIVE (NEGATIVE); PH,URINE 8.5 (5.0-8.0); PROTEIN,URINE TRACE mg/dl (NEGATIVE); UGLUCOSE NEGATIVE (NEGATIVE); UROBILINOGEN,URINE 0.2 EU/dL (0.2)
[2021-07-04 14:18] LABS: BACTERIA,URINE MOD /HPF (None Seen); CALCIUM CARBONATE CRYSTALS,UR None Seen /HPF (None Seen); CALCIUM OXALATE CRYSTALS,UR None Seen /HPF (None Seen); CALCIUM PHOSPHATE CRYSTALS,UR None Seen /HPF (None Seen); COARSE GRANULAR CASTS,URINE None Seen /LPF (None Seen); CYSTINE CRYSTALS,URINE None Seen /HPF (None Seen); FATTY CASTS,URINE None Seen /LPF (None Seen); FINE GRANULAR CASTS,URINE None Seen /LPF (None Seen); HYALINE CASTS, URINE None Seen /LPF (None Seen); MUCUS,URINE None Seen /LPF (None Seen); OTHER CRYSTALS,URINE None Seen /HPF (None Seen); RED BLOOD CELL CASTS,URINE None Seen /LPF (None Seen); SPERM,URINE None Seen /HPF (None Seen); SQUAMOUS EPITHELIAL CELL,UR FEW /HPF (None Seen); TRICHOMONAS,URINE None Seen /HPF (None Seen); TRIPLE PHOSPHATE CRYSTAL,UR None Seen /HPF (None Seen); TYROSINE CRYSTAL,URINE None seen /HPF (None Seen); URIC ACID CRYSTALS,URINE None Seen /HPF (None Seen); URINE AMORPHOUS PHOSPHATES None Seen /HPF (None Seen); URINE AMORPHOUS URATE None Seen /HPF (None Seen); WAXY CASTS,URINE None Seen /LPF (None Seen); YEAST,URINE None Seen /HPF (None Seen)
[2021-07-04] MEDS ORDERED: ACETAMINOPHEN 325 MG TABLET MC PRN (14:30)
[2021-07-04] MEDS ORDERED: ACETAMINOPHEN ES 500 MG TABLET GT PRN (14:30)
[2021-07-04] MEDS ORDERED: MIDODRINE HCL (5MG) 5 MG TABLET GT PRN (14:30)
[2021-07-04] MEDS ORDERED: Medication Not On Formulary EA (Ipratropium/Albuterol Sulfate (Combivent Respimat 20-100 IH PRN (14:30)
[2021-07-04] MEDS ORDERED: MAGNESIUM HYDROXIDE 30 ML UDC GT PRN (14:30)
[2021-07-04] MEDS ORDERED: NA PHOS,M-B/NA PHOS,DI-BA 1 EA ENEMA RC PRN (14:30)
[2021-07-04] MEDS ORDERED: BISACODYL SUPP (10 MG) 10 MG/SUPP.RECT SUPP.RECT RC PRN (14:30)
[2021-07-04] MEDS ORDERED: HYDROCODONE/APAP 5/325MG TABLET GT PRN (14:30)
[2021-07-04] MEDS ORDERED: GLUCERNA 1.5 1,000 ML BOTTLE GT SCH (14:30)
--- NOTE | 2021-07-04 14:30 | NUR ---
RN NOTES PATIENT TRANSFERRED TO UNIT AT ROOM 319 VIA [facility], ACCOMPANIED BY 2 ER NURSES AND RT AT BEDSIDE. CONNECTED TO VENTILATOR AND SUCTION. PATIENT IS NON-VERBAL, OCCASIONALLY OPENS EYES, OBTUNDED, RESPONSIVE TO TACTILE STIMULUS.
[2021-07-04] MEDS ORDERED: ONDANSETRON HCL/PF 4 MG/2 ML VIAL IVP PRN (15:00)
[2021-07-04] MEDS ORDERED: DEXTROSE 50%-WATER 50 ML DISP.SYRIN IV PRN (15:00)
[2021-07-04] MEDS ORDERED: Z GUARD REMEDY 4 OZ OINT TP PRN (15:00)
[2021-07-04] MEDS ORDERED: MAG HYDROX/AL HYDROX/SIMETH 30 ML UDC PO PRN (15:00)
[2021-07-04] MEDS ORDERED: IPRATROPIUM HALF ST 0.25 MG/1.25 ML VIAL.NEB NEB PRN (15:00)
[2021-07-04] MEDS ORDERED: MAGNESIUM HYDROXIDE 30 ML UDC PO PRN (15:00)
[2021-07-04] MEDS ORDERED: ALBUTEROL FS 2.5 MG/3 ML VIAL.NEB NEB PRN (15:00)
--- NOTE | 2021-07-04 15:37 | NUR ---
RN NOTES RECEIVED CALL FROM LAB THAT BLOOD PRODUCT IS NOT GOING TO BE AVAILABLE AT LEAST IN THE NXT 3HRS FROM [facility].
[2021-07-04] MEDS: IV NS 0.9% 1,000 ML IV PRN (15:57)
[2021-07-04] MEDS: CHLORHEXIDINE GLUCONATE 15 ML UDC MM SCH (16:47)
[2021-07-04] MEDS: METOPROLOL TARTRATE 25 MG TABLET GT SCH (16:51)
[2021-07-04] MEDS: BLOOD SUGAR DIAGNOSTIC 1 EACH STRIP VI SCH ×2 (17:01→21:19)
[2021-07-04] MEDS: INSULIN REGULAR, HUMAN 100 UNIT/ML 3 ML VIAL SQ PRN ×2 (17:04→21:28)
[2021-07-04] MEDS: ZOSYN IVPB 3.375 G in IV D5W 50ml IV SCH ×2 (17:12→23:35)
--- NOTE | 2021-07-04 19:00 | NUR ---
RN NOTES: received in bed Vent patient trach site clean gauize dressing legs rigid contracted feeding started by RN day shift Glucernia 1.2 D/T Pocket Marker stated we don't have 1.5 kaur drainage clear yellow
--- NOTE | 2021-07-04 19:30 | NUR ---
RN NOTES MECH VENT SETTINGS TOLERATED AT THIS TIME. IVF INFUSING WELL; ADMINISTERED PM MEDS INDICATED. GT INTACT AND PATENT. OH CATH IN PLACE, DRAINING YELLOW-COLORED URINE. PHOTO OF SKIN ISSUES TAKEN AND PLACED IN THE CHART; CONSULTS REQUESTED. SAFETY MEASURES MAINTAINED. ENDORSED TO E MERCHANT RN FOR NEIL.
[2021-07-04 20:00] VITALS: BP 117/59
[2021-07-04] MEDS: INSULIN GLARGINE, 100 UNIT/ML CARTRIDGE SQ SCH (21:25)
[2021-07-04] MEDS ORDERED: INSULIN GLARGINE HUM REC ANLOG 16 UNIT SQ SCH (22:00)
[2021-07-04] MEDS ORDERED: ZOLPIDEM TARTRATE 5 MG TABLET PO PRN (22:00)
--- NOTE | 2021-07-04 22:00 | NUR ---
Called the Son Janes with 2 nurse verified he gave consent for Blood transfusion
[2021-07-04] MEDS: DAKINS QUARTER STRENGTH (0.125%) 480 ML BOTTLE TOP SCH (22:30)
[2021-07-04 22:57] VITALS: BP 117/59
[2021-07-04 23:10] VITALS: BP 124/61
[2021-07-04 23:11] VITALS: BP 124/61
[2021-07-04 23:27] VITALS: BP 114/59
--- NOTE | 2021-07-04 23:34 | NUR ---
dakins solution not available at this time patient admitted today
[2021-07-05] VITALS (9 sets, daily range): BP systolic 114–131; BP diastolic 59–76
[2021-07-05] MEDS: ZOSYN IVPB 3.375 G in IV D5W 50ml IV SCH ×3 (05:24→17:12)
[2021-07-05] MEDS: IV NS 0.9% 1,000 ML IV PRN ×2 (05:25→22:10)
[2021-07-05] MEDS: BLOOD SUGAR DIAGNOSTIC 1 EACH STRIP VI SCH ×4 (05:33→22:11)
[2021-07-05] MEDS: INSULIN REGULAR, HUMAN 100 UNIT/ML 3 ML VIAL SQ PRN ×4 (05:37→22:06)
--- NOTE | 2021-07-05 06:18 | NUR ---
ENING NOTES: OBTUNDENT OPENS EYES VENT SATS 97% SACRAL WOUND DRESSING CDI LT HEEL DRESSING GAUZE WRAP CDI ASP PRECAUTIONS DT GT FEEDING NO RESIDUALS FLUSHED WITH H20 X2 60 ML NO FEVER THIS 12 HOUR 1 UNIT PRBC INFUSED
[2021-07-05 06:20] LABS: CALCIUM, SERUM 9.2 mg/dL (8.5-10.1); MAGNESIUM 2.3 mg/dL (1.8-2.4); PHOSPHORUS 3.8 mg/dL (2.5-4.9); POTASSIUM 5.1 mmol/L (3.5-5.1)
[2021-07-05 06:27] LABS: BASOPHILS % (AUTO) 0.1 % (0.0-2.0); EOSINOPHILS % (AUTO) 0.3 % (0.0-6.0); HEMATOCRIT 25 % (33-45); HEMOGLOBIN 7.9 g/dL (11.5-14.8); LYMPHOCYTES # (AUTO) 1.5 K/uL (0.8-4.8); LYMPHOCYTES % (AUTO) 6.6 % (20.0-44.0); MEAN CORPUSCULAR HGB CONC 32 g/dl (31.0-36.0); MEAN CORPUSCULAR VOLUME 95 fL (82-100); MONOCYTES # (AUTO) 0.6 K/uL (0.1-1.30); MONOCYTES % (AUTO) 2.7 % (2.0-12.0); NEUTROPHILS % (AUTO) 90.3 % (43.0-81.0); PLATELET COUNT (AUTO) 434 K/uL (150-450); WHITE BLOOD COUNT (AUTO) 23.3 K/uL (4.3-11.0)
--- NOTE | 2021-07-05 08:05 | NUR ---
RN OPENING NOTE PATIENT RECEIVED IN BED ON AIR MATTRESS, OBTUNDED, ABLE TO RESPONDS ALL STIMULI. IN NO ACUTE DISTRESS NOTED. PATIENT HAS ON TRACH, RESPIRATORY EVEN AND UNLABORED ON VENTILATOR. SKIN IS WARM TO TOUCH, KEEP CLEAN/DRY, INTACT IV SITE. OH CATH CONNECTING TO URINE BAG IN YELLOW COLOR OF URINE. KEPT ELEVATED HOB FOR ENSURE AIRWAY AND ASPIRATION PRECAUTION, ALSO LOWEST POSITION OF THE BED, S/R UP X 2, ALL SAFETY PRECAUTION APPLIED. CALL LIGHT WITHIN REACH, WILL CONTINUE TO MONITOR.
[2021-07-05] MEDS: DOCUSATE SODIUM 100 MG CAPSULE PO SCH (09:15)
[2021-07-05] MEDS: PANTOPRAZOLE 40 MG/PACK PACK GT SCH (09:15)
[2021-07-05] MEDS: FERROUS SULFATE UDC 300 MG/5 ML UDC GT SCH (09:15)
[2021-07-05] MEDS: CHLORHEXIDINE GLUCONATE 15 ML UDC MM SCH ×2 (09:15→16:12)
[2021-07-05] MEDS: AMLODIPINE BESYLATE 5 MG TABLET GT SCH (09:16)
[2021-07-05] MEDS: METOPROLOL TARTRATE 25 MG TABLET GT SCH ×2 (09:18→16:12)
[2021-07-05] MEDS: DAKINS QUARTER STRENGTH (0.125%) 480 ML BOTTLE TOP SCH (09:32)
[2021-07-05] MEDS ORDERED: VANCOMYCIN HCL 0.75 GM in IV D5W 250 ML IV SCH (12:00)
--- NOTE | 2021-07-05 16:05 | NUR ---
MD ORDERED ARTERIAL DOPPLER LOWER EXTREMITIES BILATERAL, BUT PATIENT CONTRACTED SO UNABLE TO SCAN ACCORDING TO CARDIO VASCULAR US STRIPPER SOFT PLASTIC/BRIGITTE.
--- NOTE | 2021-07-05 17:41 | NUR ---
RN CLOSE NOTE PATIENT IN BED, IN NO ACUTE DISTRESS OBSERVED. PATIENT IS ON TRACH, RESPIRATION EVEN AND UNLABORED ON VENTILATOR. SKIN IS WARM TO TOUCH KEEP CLEAN//DRY, INTACT NEW MIDLINE. DR. FRAZIER SEEN THE PATIENT FOR LEFT FOOT WOUND, CONSENT SIGN OBTAINED BY SON/ELENA. KEPT ELEVATED HOB FOR ENSURE AIRWAY AND ASPIRATION PRECAUTION. ALSO LOWEST POSITION OF THE BED FOR SAFETY. CALL LIGHT WITHIN REACH, WILL ENDORSE TO LOBBY CONCIERGE.
--- NOTE | 2021-07-05 19:33 | NUR ---
DROPPER TANK STORAGE OPENING NOTES: RECEIVED PATIENT SLEEP IN BED COMFORTABLY AROUSABLE TO VERBAL STIMULI BED IN LOW POSITION CALL LIGHTS WITHIN REACH, NO COMPLAIN OF PAIN AND DISCOMFORT AT THIS TIME, NO FACIAL GRIMACING WAS OBSERVED, PATIENT IS OBTUNDED, ON OH CATHETER WITH 50CC URINE OUTPUT, ON MECHANICAL VENT SATURATING WELL, NPO ON G TUBE FEEDING OF GLUCERNA 1.2@55 CC/HR OFF AT 1600 AND ON AT 2000, ON TELE MONITORING SR-95, PATIENT KEPT CLEAN AND DRY ALL NEEDS MET WILL CONTINUE TO MONITOR.
[2021-07-05] MEDS: GLUCERNA 1.2 1,000 ML BOTTLE NG PRN (20:45)
[2021-07-05] MEDS: ACETAMINOPHEN 325 MG TABLET PO PRN (21:11)
--- NOTE | 2021-07-05 21:11 | NUR ---
RN NOTES: TYLENOL 650 MG GIVEN FOR MILD PAIN,
[2021-07-05] MEDS: INSULIN GLARGINE, 100 UNIT/ML CARTRIDGE SQ SCH (22:05)
[2021-07-06] VITALS: BP 123/67
[2021-07-06] MEDS: ZOSYN IVPB 3.375 G in IV D5W 50ml IV SCH ×4 (00:42→17:03)
[2021-07-06 04:00] VITALS: BP 149/72
[2021-07-06 06:19] LABS: BASOPHILS % (AUTO) 0.2 % (0.0-2.0); EOSINOPHILS % (AUTO) 0.5 % (0.0-6.0); HEMATOCRIT 27 % (33-45); HEMOGLOBIN 9.1 g/dL (11.5-14.8); LYMPHOCYTES # (AUTO) 2.6 K/uL (0.8-4.8); MEAN CORPUSCULAR HGB CONC 33 g/dl (31.0-36.0); MEAN CORPUSCULAR VOLUME 95 fL (82-100); MONOCYTES # (AUTO) 0.8 K/uL (0.1-1.30); MONOCYTES % (AUTO) 3.5 % (2.0-12.0); NEUTROPHILS # (AUTO) 20.1 K/uL (1.8-8.9); NEUTROPHILS % (AUTO) 84.8 % (43.0-81.0); PLATELET COUNT (AUTO) 429 K/uL (150-450); WHITE BLOOD COUNT (AUTO) 23.7 K/uL (4.3-11.0)
[2021-07-06] MEDS: INSULIN REGULAR, HUMAN 100 UNIT/ML 3 ML VIAL SQ PRN ×3 (06:31→17:25)
[2021-07-06] MEDS: ACETAMINOPHEN 325 MG TABLET PO PRN ×3 (06:40→21:43)
[2021-07-06 06:54] LABS: CALCIUM, SERUM 8.9 mg/dL (8.5-10.1); CREATININE 1.9 mg/dL (0.6-1.3); POTASSIUM 4.6 mmol/L (3.5-5.1)
--- NOTE | 2021-07-06 06:59 | NUR ---
INTEGRATION ANALYST CLOSING NOTES: PATIENT SLEEP IN BED COMFORTABLY, HEAD OF THE BED AT 45 DEGREE ON MECHANICAL VENT. SATURATING AT 100%, NPO ON GTUBE FEEDING OF GLUCERNA 1.2@ 55ML PER HOUR, ON OH CATHETER, WITH 800CC URINE OUTPUT, WITH IV LINE AT CARL ML WITH ONGOING 0.9NSS@75ML PER HOUR INFUSING WELL, ON TELE MONITORING ST-107 PATIENT KEPT CLEAN AND DRY ALL NEEDS MET CLEANSE SKIN ISSUES AT SACRAL AND FOOT AREA, KEPT CLEAN AND DRY ALL NEEDS MET ENDORSE TO INCOMING SHIFT.
[2021-07-06] MEDS: BLOOD SUGAR DIAGNOSTIC 1 EACH STRIP VI SCH ×4 (07:01→21:35)
--- NOTE | 2021-07-06 07:38 | NUR ---
Female trach patient asleep received on [facility]. ventilator settings per md order. Portex 8 cuffed, trach tube midline and airway is patent. Backup trach tube and ambu bag at bedside. Alarms are audible, vent is plugged into red outlet. Addendum: 07/06/21 at 0740 by OLEGARIO HUTTON RT Amended: Links added.
--- NOTE | 2021-07-06 07:40 | NUR ---
OINTMENT MILL TENDER OPENING NOTES RECEIVED PATIENT IN BED, [facility] TOL[facility] WELL. O2 SAT AT 100% WITH NO S/SX OF DISTRESS NOTED. G-TUBE INTACT AND PATENT WITH GLUCERNA 1.2 RUNNING @ 55ML PER HOUR. OH CATHETER INTACT AND PATENT DRAINING YELLOW URINE. CARL ML INTACT AND PATENT RUNNING NS @75ML PER HOUR INFUSING WELL. TELE MONITORING SHOWS SR 99 AT THIS TIME. SAFETY MEASURES IN PLACE: BED IN LOWEST POSITION, WHEELS LOCKED, SIDE RAILS UP X2, CALL LIGHT WITHIN REACH. WILL KEEP MONITORING
--- NOTE | 2021-07-06 07:58 | NUR ---
Female trach patient asleep received on [facility]. ventilator settings per md. Portex 8 cuffed, tube midline and airway is patent. Backup trach tube bedside and ambu bag. Alarms audible and ventilator connected to red outlet. Addendum: 07/06/21 at 0801 by OLEGARIO HUTTON RT Amended: Links added.
[2021-07-06 08:00] VITALS: BP 119/49
--- NOTE | 2021-07-06 08:37 | NUR ---
WOUND CARE CONSULT: PT FOLLOWED BY SURGICAL AND PODIATRY TEAMS FOR WOUNDS, PRESENT ON ADMISSION (SACRAL AND LOWER EXTREMITY WOUNDS). DEFER TO SURGICAL TEAMS FOR WOUND TREATMENT PLAN. RECOMMENDATIONS MADE FOR SKIN PROTECTION. DISCUSSED WITH NURSING STAFF. [facility].MD IN AGREEMENT WITH PLAN OF CARE.
[2021-07-06] MEDS: DAKINS QUARTER STRENGTH (0.125%) 480 ML BOTTLE TOP SCH ×3 (09:00→10:16)
[2021-07-06] MEDS: CHLORHEXIDINE GLUCONATE 15 ML UDC MM SCH ×2 (09:09→18:12)
[2021-07-06] MEDS: FERROUS SULFATE UDC 300 MG/5 ML UDC GT SCH (09:09)
[2021-07-06] MEDS: METOPROLOL TARTRATE 25 MG TABLET GT SCH ×2 (09:09→18:12)
[2021-07-06] MEDS: DOCUSATE SODIUM 100 MG CAPSULE PO SCH (09:09)
[2021-07-06] MEDS: PANTOPRAZOLE 40 MG/PACK PACK GT SCH (09:10)
[2021-07-06] MEDS: AMLODIPINE BESYLATE 5 MG TABLET GT SCH (09:10)
[2021-07-06 12:00] VITALS: BP 120/69
--- NOTE | 2021-07-06 13:30 | NUR ---
RN NOTES STOOL AND WOUND SPECIMEN SENT TO LAB
[2021-07-06 16:00] VITALS: BP 124/49
[2021-07-06 16:06] LABS: OCCULT BLOOD STOOL NEGATIVE (NEGATIVE)
[2021-07-06] MEDS: IV NS 0.9% 1,000 ML IV PRN (17:07)
--- NOTE | 2021-07-06 18:52 | NUR ---
FIELD APPLICATIONS SPECIALIST CLOSING NOTES PATIENT ON MECHANICAL VENT TOLERATING SETTINGS WELL. RT TITRATED PATIENT'S O2 SETTING FROM 40% TO 35% AND PATIENT IS SATING 98%. NO ACUTE DISTRESS NOTED. STILL RUNNING GLUCERNA 1.2 RUNNING @ 55ML/HR VIA G-TUBE. 600 ML TOTAL URINE OUTPUT FROM F/C TODAY. CARL ML INTACT AND PATENT RUNNING NS @75ML PER HOUR INFUSING WELL. TELE MONITORING SHOWS ST 108 BPM AT THIS TIME. L HEEL DEBRIDEMENT DONE TODAY BY DR FRAZIER, CULTURES SENT TO LAB. STOOL CULTURE FOR OCCULT BLOOD TESTING SENT TO LAB. NO ACTIVE SIGNS OF BLEEDING NOTED. SAFETY MEASURES IN PLACE: BED IN LOWEST POSITION, WHEELS LOCKED, SIDE RAILS UP X2, CALL LIGHT WITHIN REACH. WILL ENDORSE TO FISHER SEAL NURSE FOR NEIL
--- NOTE | 2021-07-06 19:30 | NUR ---
RN OPENING NOTE PATIENT IN BED, EYES CLOSED. PATIENT OPENS EYES, OBTUNDED. PATIENT IS ON [facility] VENT AND TRACH- FIO2 35%, TV 500, AND PEEP 5. PATIENT TOLERATING CURRENT VENT SETTINGS- NO SOB AND NOT IN ANY APPARENT RESPIRATORY DISTRESS. PATIENT IS ON TELE MONITOR READING ST 110 AT THIS TIME. OH CATHETER IN PLACE DRAINING YELLOW URINE. PATIENT S/P WOUND DEBRIDEMENT OF L HEEL THIS AM WITH DR. FRAZIER. DRESSING ON BOTH R AND L FOOT C/D/I. GT PATENT AND INTACT, GLUCERNA 1.2 ONGOING AT 55 ML/HR. PATIENT NOT IN PAIN VIA FLACC. PATIENT COMFORTABLE AT THIS TIME. SAFETY MEASURES IN PLACE: BED LOCKED AND IN LOWEST POSITION, CALL LIGHT WITHIN REACH, SIDE RAILS UP. WILL MONITOR PATIENT CLOSELY.
[2021-07-06 20:00] VITALS: BP 124/99
[2021-07-06] MEDS: INSULIN GLARGINE, 100 UNIT/ML CARTRIDGE SQ SCH (21:38)
[2021-07-06] MEDS: *INSULIN REGULAR(HUMULIN R)HUM 100 UNIT/ML VIAL SQ PRN (21:39)
--- NOTE | 2021-07-06 21:40 | NUR ---
RN NOTE TEMP 99.8 COOLING MEASURES INITIATED AND TYLENOL GIVEN. WILL RECHECK TEMP AT A LATER TIME. 3 UNITS INSULIN COVERAGE GIVEN FOR BS 183 MG/DL. ON TF. WILL MONITOR FOR HYPOGLYCEMIA.
[2021-07-07] VITALS: BP 126/60
--- NOTE | 2021-07-07 | NUR ---
RN NOTE TEMP 101.2, INCREASED COOLING MEASURES- WILL RECHECK TEMP IN AN HOUR.
[2021-07-07] MEDS: ZOSYN IVPB 3.375 G in IV D5W 50ml IV SCH ×4 (00:39→17:12)
[2021-07-07] MEDS: GLUCERNA 1.2 1,000 ML BOTTLE NG PRN (02:04)
[2021-07-07 04:00] VITALS: BP 139/69
[2021-07-07] MEDS: IV NS 0.9% 1,000 ML IV PRN ×2 (06:19→21:36)
[2021-07-07] MEDS: INSULIN REGULAR, HUMAN 100 UNIT/ML 3 ML VIAL SQ PRN ×2 (06:21→12:02)
--- NOTE | 2021-07-07 06:57 | NUR ---
RN CLOSING NOTE PATIENT IN BED, EYES CLOSED. PATIENT OPENS EYES, OBTUNDED. PATIENT IS ON [facility] VENT AND TRACH- FIO2 35%, TV 500, AND PEEP 5. PATIENT TOLERATING CURRENT VENT SETTINGS- NO SOB AND NOT IN ANY APPARENT RESPIRATORY DISTRESS. PATIENT IS ON TELE MONITOR READING SR 95 BPM AT THIS TIME. OH CATHETER IN PLACE DRAINING YELLOW URINE. DRESSING ON BOTH R AND L FOOT C/D/I. WOUND CARE RENDERED. GT PATENT AND INTACT, GLUCERNA 1.2 ONGOING AT 55 ML/HR. PATIENT NOT IN PAIN VIA FLACC. PATIENT COMFORTABLE AT THIS TIME. FEVERS MANAGED WITH TYLENOL AND COOLING MEASURES. SAFETY MEASURES IN PLACE: BED LOCKED AND IN LOWEST POSITION, CALL LIGHT WITHIN REACH, SIDE RAILS UP. ALL NEEDS MET AND ATTENDED. ALL ORDERS CARRIED OUT. WILL ENDORSE TO DAY SHIFT NURSE FOR NEIL.
[2021-07-07 08:00] VITALS: BP 161/59
[2021-07-07 08:21] LABS: CALCIUM, SERUM 9.1 mg/dL (8.5-10.1); CREATININE 1.9 mg/dL (0.6-1.3); POTASSIUM 4.7 mmol/L (3.5-5.1)
[2021-07-07] MEDS: BLOOD SUGAR DIAGNOSTIC 1 EACH STRIP VI SCH ×4 (08:46→21:28)
[2021-07-07] MEDS: FERROUS SULFATE UDC 300 MG/5 ML UDC GT SCH (08:52)
[2021-07-07] MEDS: CHLORHEXIDINE GLUCONATE 15 ML UDC MM SCH ×2 (08:52→17:07)
[2021-07-07] MEDS: AMLODIPINE BESYLATE 5 MG TABLET GT SCH (08:53)
[2021-07-07] MEDS: PANTOPRAZOLE 40 MG/PACK PACK GT SCH (08:53)
[2021-07-07] MEDS: DOCUSATE SODIUM 100 MG CAPSULE PO SCH (08:53)
[2021-07-07] MEDS: METOPROLOL TARTRATE 25 MG TABLET GT SCH ×2 (08:53→17:00)
[2021-07-07] MEDS: DAKINS QUARTER STRENGTH (0.125%) 480 ML BOTTLE TOP SCH (08:54)
[2021-07-07 12:00] VITALS: BP 113/61
[2021-07-07] MEDS ORDERED: VANCOMYCIN 0.75 GM in IV D5W 250 ML IV SCH (12:00)
[2021-07-07 16:08] VITALS: BP 98/55
[2021-07-07] MEDS: *INSULIN REGULAR(HUMULIN R)HUM 100 UNIT/ML VIAL SQ PRN ×2 (17:06→21:31)
--- NOTE | 2021-07-07 18:18 | NUR ---
RN CLOSE NOTE PATIENT IN BED, IN NO ACUTE DISTRESS OBSERVED. PATIENT IS ON TRACH, RESPIRATION EVEN AND UNLABORED ON VENTILATOR. SKIN IS WARM TO TOUCH KEEP CLEAN//DRY, INTACT NEW MIDLINE. KEPT ELEVATED HOB FOR ENSURE AIRWAY AND ASPIRATION PRECAUTION. ALSO LOWEST POSITION OF THE BED FOR SAFETY. CALL LIGHT WITHIN REACH, WILL ENDORSE TO PRODUCTION SOUND MIXER. Addendum: 07/07/21 at 1920 by FREDIS QUIGLEY RN error
--- NOTE | 2021-07-07 18:20 | NUR ---
RN CLOSE NOTE PATIENT IN BED, IN NO ACUTE DISTRESS OBSERVED. PATIENT IS ON TRACH, RESPIRATION EVEN AND UNLABORED ON VENTILATOR. SKIN IS WARM TO TOUCH KEEP CLEAN//DRY, INTACT MIDLINE. KEPT ELEVATED HOB FOR ENSURE AIRWAY AND ASPIRATION PRECAUTION. ALSO LOWEST POSITION OF THE BED FOR SAFETY. CALL LIGHT WITHIN REACH, WILL ENDORSE TO METROLOGY TECHNICIAN.
--- NOTE | 2021-07-07 19:42 | NUR ---
RN OPENING NOTE PATIENT IN BED, OPENS EYES, OBTUNDED. PATIENT IS [facility] VENT AND TRACH- FIO2 35%, TV 500, AND PEEP 5. PATIENT TOLERATING CURRENT VENT SETTINGS- NO SOB AND NOT IN ANY APPARENT RESPIRATORY DISTRESS. PATIENT IS ON TELE MONITOR READING SR 86 BPM AT THIS TIME. OH CATHETER IN PLACE DRAINING YELLOW URINE. DRESSING PRESENT ON BOTH R AND L FOOT C/D/I. GT PATENT AND INTACT, GLUCERNA 1.2 ONGOING AT 55 ML/HR. PATIENT NOT IN PAIN VIA FLACC. PATIENT COMFORTABLE AT THIS TIME. SAFETY MEASURES IN PLACE: BED LOCKED AND IN LOWEST POSITION, CALL LIGHT WITHIN REACH, SIDE RAILS UP. WILL MONITOR PATIENT CLOSELY.
[2021-07-07 20:00] VITALS: BP 119/67
[2021-07-07] MEDS: INSULIN GLARGINE, 100 UNIT/ML CARTRIDGE SQ SCH (21:30)
--- NOTE | 2021-07-07 22:00 | NUR ---
RN NOTE BS 163 MG/DL 3 UNITS GIVEN FOR COVERAGE AND LANTUS ADMINISTERED ORDERED. WILL MONITOR FOR HYPO/HYPERGLYCEMIA. PATIENT ON TF.
[2021-07-08] VITALS: BP 119/62
[2021-07-08] MEDS: ZOSYN IVPB 3.375 G in IV D5W 50ml IV SCH ×4 (00:14→17:49)
[2021-07-08] MEDS: GLUCERNA 1.2 1,000 ML BOTTLE NG PRN (01:58)
--- NOTE | 2021-07-08 03:39 | NUR ---
RT PT RECVD ON ORDERED AC VENT SETTINGS WITH A PORTEX 8 TRACH, TRACH IS PATENT AND SECURED. VENT IS PLUGGED INTO RED OUTLET AND ALARMS ARE ON AND AUDIBLE. SUCTION PRN/Q2 AND TRACH CARE DONE. NO SOB OR RESPIRATORY DISTRESS NOTED AT THIS TIME. SPARE TRACH AND AMBU BAG AT BEDSIDE.
[2021-07-08 04:00] VITALS: BP 122/65
[2021-07-08] MEDS: INSULIN REGULAR, HUMAN 100 UNIT/ML 3 ML VIAL SQ PRN ×3 (06:36→17:25)
[2021-07-08] MEDS: BLOOD SUGAR DIAGNOSTIC 1 EACH STRIP VI SCH ×4 (06:36→22:16)
--- NOTE | 2021-07-08 06:48 | NUR ---
RN CLOSING NOTE PATIENT IN BED, OPENS EYES, OBTUNDED. PATIENT IS ON [facility] VENT AND TRACH- FIO2 35%, TV 500, AND PEEP 5. PATIENT TOLERATING CURRENT VENT SETTINGS- NO SOB AND NOT IN ANY APPARENT RESPIRATORY DISTRESS. PATIENT IS ON TELE MONITOR READING SR 86 BPM AT THIS TIME. OH CATHETER IN PLACE DRAINING YELLOW URINE. DRESSING PRESENT ON BOTH R AND L FOOT C/D/I AND SACRAL WOUND CARE RENDERED. GT PATENT AND INTACT, GLUCERNA 1.2 ONGOING AT 55 ML/HR. TURNED ON AT 0200. PATIENT NOT IN PAIN VIA FLACC. PATIENT COMFORTABLE AT THIS TIME. SAFETY MEASURES IN PLACE: BED LOCKED AND IN LOWEST POSITION, CALL LIGHT WITHIN REACH, SIDE RAILS UP. ALL NEEDS MET AND ATTENDED. ALL ORDERS CARRIED OUT. WILL ENDORSE TO DAY SHIFT NURSE.
--- NOTE | 2021-07-08 07:30 | NUR ---
DEVELOPMENT REP OPENING NOTES RECEIVED PATIENT IN BED, OPENS EYES, OBTUNDED. PATIENT IS ON [facility] VENT AND TRACH- FIO2 35%, TV 500, AND PEEP 5. PATIENT TOLERATING CURRENT VENT SETTINGS- NO SOB AND NOT IN ANY APPARENT RESPIRATORY DISTRESS. PATIENT IS ON TELE MONITOR READING SR-ST 90- LOW 100'S BPM AT THIS TIME. OH CATHETER IN PLACE DRAINING YELLOW URINE. DRESSING PRESENT ON BOTH R AND L FOOT C/D/I. GT PATENT AND INTACT, GLUCERNA 1.2 ONGOING AT 55 ML/HR. PATIENT NOT IN PAIN VIA FLACC. PATIENT COMFORTABLE AT THIS TIME. SAFETY MEASURES IN PLACE: BED LOCKED AND IN LOWEST POSITION, CALL LIGHT WITHIN REACH, SIDE RAILS UP. WILL MONITOR PATIENT ACCORDINGLY.
--- NOTE | 2021-07-08 07:44 | NUR ---
fdecresed fio2 from 35% t0 30% due to 100% spo2. Addendum: 07/08/21 at 0744 by JACKY COUCH RT Amended: Links added.
[2021-07-08 08:49] VITALS: BP 128/53
[2021-07-08] MEDS: DOCUSATE SODIUM 100 MG CAPSULE PO SCH (09:04)
[2021-07-08] MEDS: PANTOPRAZOLE 40 MG/PACK PACK GT SCH (09:04)
[2021-07-08] MEDS: AMLODIPINE BESYLATE 5 MG TABLET GT SCH (09:05)
[2021-07-08] MEDS: METOPROLOL TARTRATE 25 MG TABLET GT SCH ×2 (09:05→16:37)
[2021-07-08] MEDS: FERROUS SULFATE UDC 300 MG/5 ML UDC GT SCH (09:05)
[2021-07-08] MEDS: CHLORHEXIDINE GLUCONATE 15 ML UDC MM SCH ×2 (09:05→16:37)
[2021-07-08] MEDS: DAKINS QUARTER STRENGTH (0.125%) 480 ML BOTTLE TOP SCH ×2 (09:06)
[2021-07-08 11:47] LABS: BASOPHILS % (AUTO) 0.2 % (0.0-2.0); EOSINOPHILS % (AUTO) 1.1 % (0.0-6.0); HEMATOCRIT 22 % (33-45); LYMPHOCYTES # (AUTO) 1.8 K/uL (0.8-4.8); LYMPHOCYTES % (AUTO) 11.5 % (20.0-44.0); MEAN CORPUSCULAR HGB CONC 33 g/dl (31.0-36.0); MEAN CORPUSCULAR VOLUME 94 fL (82-100); MONOCYTES # (AUTO) 0.8 K/uL (0.1-1.30); MONOCYTES % (AUTO) 4.8 % (2.0-12.0); NEUTROPHILS # (AUTO) 13.1 K/uL (1.8-8.9); NEUTROPHILS % (AUTO) 82.4 % (43.0-81.0); PLATELET COUNT (AUTO) 403 K/uL (150-450); RED BLOOD CELL COUNT(AUTO) 2.28 MIL/uL (4.0-5.2); WHITE BLOOD COUNT (AUTO) 15.8 K/uL (4.3-11.0)
[2021-07-08 12:03] LABS: CALCIUM, SERUM 8.5 mg/dL (8.5-10.1); CREATININE 1.7 mg/dL (0.6-1.3)
--- NOTE | 2021-07-08 12:15 | NUR ---
RN NOTES HEMOGLOBIN RESULT OF 7. NOTIFIED DR. YOUNG, ACKNOWLEDGED WITH NO NEW ORDERS MADE.
[2021-07-08] MEDS: IV NS 0.9% 1,000 ML IV PRN (12:52)
[2021-07-08 13:04] LABS: POTASSIUM 4.7 mmol/L (3.5-5.1)
--- NOTE | 2021-07-08 16:00 | NUR ---
RN NOTES WOUND CARE DONE ORDERED.
--- NOTE | 2021-07-08 18:29 | NUR ---
SERVICE ARCHITECT CLOSING NOTES PATIENT IN BED, OPENS EYES, OBTUNDED. PATIENT IS ON [facility] VENT AND TRACH- FIO2 35%, TV 500, AND PEEP 5. PATIENT TOLERATING CURRENT VENT SETTINGS- NO SOB AND NOT IN ANY APPARENT RESPIRATORY DISTRESS. PATIENT IS ON TELE MONITOR READING SR HR AT 91 BPM AT THIS TIME. OH CATHETER IN PLACE DRAINING YELLOW URINE. DRESSING PRESENT ON BOTH R AND L FOOT C/D/I. GT PATENT AND INTACT, GLUCERNA 1.2 ONGOING AT 55 ML/HR. PATIENT NOT IN PAIN VIA FLACC. PATIENT COMFORTABLE AT THIS TIME. SAFETY MEASURES IN PLACE: BED LOCKED AND IN LOWEST POSITION, CALL LIGHT WITHIN REACH, SIDE RAILS UP. ALL NEEDS ATTENDED AND MET, DUE MEDS GIVEN ORDERED. WILL ENDORSE TO ONCOMING SHIFT FOR NEIL.
--- NOTE | 2021-07-08 20:13 | NUR ---
CHILD CARE SUPERVISOR OPENING NOTE PATIENT IN BED WITH EYES CLOSED, OBTUNDED, NON-VERBAL. PATIENT ON MECHANICAL VENT, TOLERATING WELL, NO S/S OF DISTRESS OR SOB NOTED, BREATHING EVEN AND UNLABORED, SPO2: 100%. IV ACCESS CARL MIDLINE INTACT AND INFUSING NS @ 75 ML/HR. PATIENT ON EXTERNAL INSPECTION CLERK READING SINUS RHYTHM, HR: 87. GT FEEDING RUNNING GLUCERNA @ 55 ML/HR, TO BE TURNED OFF FROM 2200 TO 0200 PER DAY SHIFT NURSE. OH CATHETER IN PLACE AND DRAINING CLEAR YELLOW URINE. SAFETY MEASURES IN PLACE: CALL LIGHT WITHIN REACH, SIDE RAILS UP X 3, BED LOCKED IN LOWEST POSITION, HOB ELEVATED, BED ALARM ON. WILL CONTINUE TO MONITOR PATIENT
[2021-07-08 20:18] VITALS: BP 117/54
[2021-07-08] MEDS: INSULIN GLARGINE, 100 UNIT/ML CARTRIDGE SQ SCH (22:20)
[2021-07-08] MEDS: *INSULIN REGULAR(HUMULIN R)HUM 100 UNIT/ML VIAL SQ PRN (22:21)
[2021-07-09] MEDS ORDERED: VANCOMYCIN 0.75 GM in IV D5W 250 ML IV SCH ×2
[2021-07-09] MEDS: ZOSYN IVPB 3.375 G in IV D5W 50ml IV SCH ×4 (00:15→17:11)
[2021-07-09 00:32] VITALS: BP 95/51
[2021-07-09] MEDS: GLUCERNA 1.2 1,000 ML BOTTLE NG PRN (02:40)
[2021-07-09] MEDS: IV NS 0.9% 1,000 ML IV PRN (04:01)
[2021-07-09 04:37] VITALS: BP 95/48
[2021-07-09 06:46] LABS: BASOPHILS # (AUTO) 0.1 K/uL (0.0-0.2); BASOPHILS % (AUTO) 0.5 % (0.0-2.0); EOSINOPHILS % (AUTO) 1.5 % (0.0-6.0); HEMATOCRIT 22 % (33-45); HEMOGLOBIN 7.2 g/dL (11.5-14.8); LYMPHOCYTES % (AUTO) 12.5 % (20.0-44.0); MEAN CORPUSCULAR HGB CONC 33 g/dl (31.0-36.0); MEAN CORPUSCULAR VOLUME 94 fL (82-100); MONOCYTES # (AUTO) 0.8 K/uL (0.1-1.30); MONOCYTES % (AUTO) 4.7 % (2.0-12.0); NEUTROPHILS # (AUTO) 13.1 K/uL (1.8-8.9); NEUTROPHILS % (AUTO) 80.8 % (43.0-81.0); PLATELET COUNT (AUTO) 462 K/uL (150-450); RED BLOOD CELL COUNT(AUTO) 2.32 MIL/uL (4.0-5.2); WHITE BLOOD COUNT (AUTO) 16.2 K/uL (4.3-11.0)
[2021-07-09] MEDS: BLOOD SUGAR DIAGNOSTIC 1 EACH STRIP VI SCH ×3 (06:46→17:21)
[2021-07-09 06:51] LABS: CREATININE 1.8 mg/dL (0.6-1.3)
[2021-07-09 07:03] LABS: CALCIUM, SERUM 8.6 mg/dL (8.5-10.1)
--- NOTE | 2021-07-09 07:06 | NUR ---
FASHION ILLUSTRATOR CLOSING NOTE PATIENT IN BED WITH EYES CLOSED, OBTUNDED, NON-VERBAL. NO SIGNIFICANT CHANGES THROUGHOUT SHIFT. PATIENT ON MECHANICAL VENT, TOLERATING WELL, NO S/S OF DISTRESS OR SOB NOTED, BREATHING EVEN AND UNLABORED, SPO2: 100%. IV ACCESS CARL MIDLINE INTACT AND INFUSING NS @ 75 ML/HR. PATIENT ON EXTERNAL BEVEL MILL OPERATOR READING SINUS RHYTHM, HR: 88. GT FEEDING RUNNING GLUCERNA @ 55 ML/HR, TURNED OFF FROM 2200 AND TURNED BACK ON AT 0200. OH CATHETER IN PLACE AND DRAINING CLEAR YELLOW URINE. MEDICATIONS GIVEN ORDERED, PT NEEDS MET THROUGHOUT SHIFT. SAFETY MEASURES IN PLACE: CALL LIGHT WITHIN REACH, SIDE RAILS UP X 3, BED LOCKED IN LOWEST POSITION, HOB ELEVATED, BED ALARM ON. WILL ENDORSE TO DAY SHIFT NURSE FOR CONTINUITY OF CARE
--- NOTE | 2021-07-09 07:27 | NUR ---
CRUCIBLE FURNACE TENDER OPENING NOTES RECEIVED PATIENT AWAKE IN BED IN NO ACUTE SIGNS OF DISTRESS. HOB ELEVATED. PT IS OBTUNDED AND OPENS EYES TO STIMULI. PT WITH TRACH PORTEX #8 ATTACHED TO [facility] VENT @ SETTINGS OF: AC 16, FIO2 30%, TV 500, AND PEEP 5, TOLERATING CURRENT VENT SETTINGS WITH NO SOB NOTED. ON TELE MONITOR WITH CURRENT READING OF NSR, HR ON THE 90'S. CARL MIDLINE G#18 INTACT WITH IVF OF NS @ 75ML/HR INFUSING WELL. OH CATHETER IN PLACE DRAINING CLEAR YELLOW URINE VIA GRAVITY. G-TUBE IN PLACE WITH FEEDING OF GLUCERNA 1.2 ONGOING AT 55 ML/HR, TOLERATING WELL. ASPIRATION PRECAUTIONS MAINTAINED. SAFETY MEASURES IN PLACE: BED LOCKED AND IN LOWEST POSITION, CALL LIGHT WITHIN REACH, AND SIDE RAILS UP X3. WILL MONITOR PATIENT ACCORDINGLY.
[2021-07-09 08:00] VITALS: BP 125/50
[2021-07-09] MEDS: DOCUSATE SODIUM 100 MG CAPSULE PO SCH (08:58)
[2021-07-09] MEDS: PANTOPRAZOLE 40 MG/PACK PACK GT SCH (08:58)
[2021-07-09] MEDS: CHLORHEXIDINE GLUCONATE 15 ML UDC MM SCH ×2 (08:58→16:24)
[2021-07-09] MEDS: FERROUS SULFATE UDC 300 MG/5 ML UDC GT SCH (08:58)
[2021-07-09] MEDS: METOPROLOL TARTRATE 25 MG TABLET GT SCH ×2 (09:02→16:24)
[2021-07-09] MEDS: AMLODIPINE BESYLATE 5 MG TABLET GT SCH (09:02)
[2021-07-09] MEDS: DAKINS QUARTER STRENGTH (0.125%) 480 ML BOTTLE TOP SCH ×2 (09:03→09:04)
[2021-07-09] MEDS ORDERED: PIPE3.379 IV (11:06)
[2021-07-09 12:08] VITALS: BP 132/40
--- NOTE | 2021-07-09 12:52 | NUR ---
RN NOTES PT NOTED WITH ACCU-CHECK OF 58 MG/DL, REJECTED AND RECHECKED AND WAS STILL LOW 57 MG/DL, PRN D50 ADMINISTERED ORDERED. RE-CHECKED BLOOD SUGAR AFTER 30 MINUTES AND WENT UP TO 147 MG/DL. DR YOUNG MADE AWARE AND ACKNOWLEDGED. NO NEW ORDER MADE AT THIS TIME.
[2021-07-09 16:00] VITALS: BP 120/60
[2021-07-09 16:24] VITALS: BP 120/60
[2021-07-09] MEDS: INSULIN REGULAR, HUMAN 100 UNIT/ML 3 ML VIAL SQ PRN (17:23)
--- NOTE | 2021-07-09 19:05 | NUR ---
RN DISCHARGED NOTES PT DISCHARGED TO [facility] IN STABLE CONDITION. PT IS NON-VERBAL, OBTUNDED AND OPEN EYES TO TACTILE AND PAIN STIMULI. V/S TAKEN, STABLE AND RECORDED. PT HAS NO BELONGINGS. PHOTOS OF SKIN ISSUES TAKEN AND FILED IN HER CHART. PT ON TRACH PORTEX #8 CONFECTED TO MECHANICAL VENTILATOR AT PRESCRIBED SETTINGS, TOLERATING WELL WITH NO ACUTE RESPIRATORY DISTRESS NOTED. CARL MIDLINE KEPT IN PLACE, PT WILL CONTINUE TO RECEIVED IV ABX ORDERED AT THE [facility]. G-TUBE AND OH IN PLACE AND BOTH PATENT. CALLED AND REPORT GIVEN TO ROBERT BARAJAS AND VERBALIZED UNDERSTANDING. LEFT MESSAGE VIA VOICEMAIL TO PT'S SON ELMER, UN-ABLE TO LEAVE TO VOICEMAIL TO PT'S SISTER ELMER BECAUSE IT'S FULL. REPORT GIVEN TO EMT'S AND HANDED EXIT FOLDER. PT LEFT UNIT AT 1900 VIA GURNEY ACCOMPANIED BY 2 CHRISTMAS BELL RINGER AND 1 RT FROM [facility]. MD AND CHARGE NURSE AWARE OF DISCHARGE.
== END 2021-07-09 19:01 | DRG 710 ==
LOC: ER 11:46 → TELE 13:53
PROVIDERS: ADMIT Internal Medicine; ATTEND Internal Medicine
PROC: 5A1955Z Respiratory Ventilation, Greater than 96 Consecutive Hours (ICD-10-PCS; principal; 2021-07-04)
PROC: 30233N1 Transfusion of Nonautologous Red Blood Cells into Peripheral Vein, Percutaneous Approach (ICD-10-PCS; 2021-07-04)
PROC: 05HD33Z Insertion of Infusion Device into Right Cephalic Vein, Percutaneous Approach (ICD-10-PCS; 2021-07-05)
PROC: 0QBM0ZZ Excision of Left Tarsal, Open Approach (ICD-10-PCS; 2021-07-06)
DX: A41.9 Sepsis, unspecified organism (principal); N17.0 Acute kidney failure with tubular necrosis; G93.40 Encephalopathy, unspecified; J96.10 Chronic respiratory failure, unspecified whether with hypoxia or hypercapnia; E43 Unspecified severe protein-calorie malnutrition; L89.154 Pressure ulcer of sacral region, stage 4; E11.52 Type 2 diabetes mellitus with diabetic peripheral angiopathy with gangrene; L89.896 Pressure-induced deep tissue damage of other site; R53.2 Functional quadriplegia; E11.22 Type 2 diabetes mellitus with diabetic chronic kidney disease; E11.621 Type 2 diabetes mellitus with foot ulcer; E87.1 Hypo-osmolality and hyponatremia; D64.9 Anemia, unspecified; F03.90 Unspecified dementia, unspecified severity, without behavioral disturbance, psychotic disturbance, mood disturbance, and anxiety; I12.9 Hypertensive chronic kidney disease with stage 1 through stage 4 chronic kidney disease, or unspecified chronic kidney disease; N18.9 Chronic kidney disease, unspecified; R13.10 Dysphagia, unspecified; Z93.0 Tracheostomy status; Z93.1 Gastrostomy status; Z79.51 Long term (current) use of inhaled steroids; Z79.899 Other long term (current) drug therapy; Z79.4 Long term (current) use of insulin; L97.429 Non-pressure chronic ulcer of left heel and midfoot with unspecified severity; E88.09 Other disorders of plasma-protein metabolism, not elsewhere classified; Z99.11 Dependence on respirator [ventilator] status; M85.80 Other specified disorders of bone density and structure, unspecified site; N20.0 Calculus of kidney; N39.0 Urinary tract infection, site not specified; B96.4 Proteus (mirabilis) (morganii) as the cause of diseases classified elsewhere; E86.1 Hypovolemia; M24.561 Contracture, right knee; M24.562 Contracture, left knee; Z87.820 Personal history of traumatic brain injury; Z85.09 Personal history of malignant neoplasm of other digestive organs; Z86.74 Personal history of sudden cardiac arrest; M62.562 Muscle wasting and atrophy, not elsewhere classified, left lower leg; M62.561 Muscle wasting and atrophy, not elsewhere classified, right lower leg; Z74.09 Other reduced mobility
CPT/HCPCS: 31720; 36410; 36415; 71045-TC; 73630-TC; 76770-TC; 80048-TC; 80076-TC; 80202-TC; 81001; 82272-TC; 82962-TC; 83605-TC; 83735-TC; 84100-TC; 84484-TC; 85025-TC; 85652-TC; 85730-TC; 86140-TC; 86850-TC; 87040-TC; 87070-TC; 87081-TC; 87086-TC; 87186-TC; 94002-TC; 94003-TC; 94799-TC; 99082-TC; A4623; A6253; A6403; A7526; C9803; G0378; J0692; J1815; J2543; J3370; J7030; J7050; J7060; P9016

== ENCOUNTER 2021-08-01 15:37 | Inpatient (IN) | payer MEDICAID ==
[~2021-08-01] VITALS: Ht 152.4 cm; Wt 63.0 kg
[~2021-08-01 15:37] MED LIST changes: -CLON0.1T PO; -COLL30OI TP; +CRAN3875 GT; +FERR300L GT; -FERR325T23 GT; +HYDR-4303 GT; +MIDO5TAB4 GT; -MIDO5TAB4 PO; -PIPE2.257 IV; +PIPE3.379 IV; -SODI473S8 TOP
--- NOTE | 2021-08-01 15:40 | NUR ---
BIB PA FOR WBC=18.5,RBC=2.36, HGB=7.5 AND NECROTIC WOUND,L HEEL. PATIENT CAME FROM [facility]. PATIENT HAS TRACHE ATTACHED TO VENT WITH SETTINGS: AC MODE, FIO2 40%, TV 550, RATE 18, PEEP 5, SATURATING 100%. WITH GTUBE, WITH MIDLINE ON RIGHT AC (2 WAY) WITH GTUBE FEEDING, WITH IFC ATTACHED TO UROBAG. PATIENT HAS PRESSURE SORE ON SACRAL AREA, WITH LEFT HEEL WOUND.
--- NOTE | 2021-08-01 15:40 | NUR ---
BLOOD DRAWN AND SENT TO LAB
--- NOTE | 2021-08-01 15:45 | NUR ---
PATIENT CAME WITH MIDLINE ON RIGHT AC USING G18 NEEDLE; ON SALINE LOCK. WITH IFC F16 FROM [facility].
[2021-08-01] MEDS ORDERED: PIPERACILLIN /TAZOBACTAM 3.375 G VIAL IV ONE (15:57)
[2021-08-01] MEDS ORDERED: PIPERACILLIN /TAZOBACTAM 3.375 G in IV D5W 50 ML IV ONE (16:00)
[2021-08-01] MEDS ORDERED: IV NS 0.9% 1,000 ML BAG IV ONE ×2 (16:00→18:30)
--- NOTE | 2021-08-01 16:00 | NUR ---
XRAYS DONE AT BEDSIDE
--- NOTE | 2021-08-01 16:00 | NUR ---
COVID SWAB DONE
[2021-08-01] MEDS ORDERED: AMIN30LI2 GT (16:07)
[2021-08-01] MEDS ORDERED: HYDR-4303 GT (16:07)
[2021-08-01] MEDS ORDERED: VANC750V IV (16:07)
[2021-08-01] MEDS ORDERED: EPOE40007 SQ (16:07)
[2021-08-01] MEDS ORDERED: ZINC1CAP2 PO (16:07)
[2021-08-01] MEDS ORDERED: MULT-447 GT (16:07)
[2021-08-01 16:11] LABS: BASOPHILS % (AUTO) 0.1 % (0.0-2.0); EOSINOPHILS % (AUTO) 0.7 % (0.0-6.0)
[2021-08-01 16:15] LABS: LYMPHOCYTES # (AUTO) 1.6 K/uL (0.8-4.8); MEAN CORPUSCULAR HGB CONC 34 g/dl (31.0-36.0); MEAN CORPUSCULAR VOLUME 94 fL (82-100); MONOCYTES # (AUTO) 0.2 K/uL (0.1-1.30); NEUTROPHILS # (AUTO) 21.4 K/uL (1.8-8.9); NEUTROPHILS % (AUTO) 91.2 % (43.0-81.0); PLATELET COUNT (AUTO) 402 K/uL (150-450); RED BLOOD CELL COUNT(AUTO) 2.13 MIL/uL (4.0-5.2); WHITE BLOOD COUNT (AUTO) 23.5 K/uL (4.3-11.0)
[2021-08-01 16:22] LABS: CALCIUM, SERUM 9.1 mg/dL (8.5-10.1); CARBON DIOXIDE 25 mmol/L (21-32); CHLORIDE 95 mmol/L (98-107); POTASSIUM 5.1 mmol/L (3.5-5.1); SODIUM SERUM 128 mmol/L (136-145)
--- NOTE | 2021-08-01 16:27 | NUR ---
LAB CALLED BG [address] LOMAX AWARE.
[2021-08-01 16:28] LABS: GLUCOSE 41 mg/dL (74-106); UREA NITROGEN, BLOOD 86 mg/dL (7-18)
[2021-08-01] MEDS ORDERED: DEXTROSE 50%-WATER 50 ML DISP.SYRIN ONE ×2 (16:33→20:41)
[2021-08-01 16:38] LABS: HEMOGLOBIN 6.8 g/dL (11.5-14.8)
[2021-08-01 16:39] LABS: HEMATOCRIT 20 % (33-45)
--- NOTE | 2021-08-01 16:39 | NUR ---
URINE SPECIMEN SENT TO LAB
[2021-08-01] MEDS ORDERED: DEXTROSE 50%-WATER 50 ML DISP.SYRIN IVP ONE (17:00)
--- NOTE | 2021-08-01 17:07 | NUR ---
RT RECD PT FOR ABNORMAL LABS, TRACHED INTACT SECURED PORTEX 8 CUFFED ON [facility] VENT WITH FOLLOWING SETTING AC 18 550 +5 40%. BAG MASK AT [facility] PLUGGED IN RED OUTLET NO RESP DISTRESS SX THIN ORDAZ SMALL AMOUNT SECRETIONS, NO RESP DISTRESS WILL CONT TO MONITOR Addendum: 08/01/21 at 1710 by DORA DIAZ RT Amended: Links added.
--- NOTE | 2021-08-01 17:29 | NUR ---
LEFT VM TO DEMI PARKER [phone] TO ASK CONSENT FOR POSSIBLE BLOOD TRANSFUSION. WAITING FOR RETURN CALL
[2021-08-01 17:51] LABS: BAND % (MANUAL) 4 % (0.0-5.0); LYMPHOCYTES % (MANUAL) 7 % (16-48); NEUTROPHILS % (MANUAL) 89 (42-76)
--- NOTE | 2021-08-01 17:55 | NUR ---
SEEN BY HOSPITALIST AT ER
--- NOTE | 2021-08-01 17:57 | NUR ---
CALLED DR. RAZA [phone] LOMAX.
[2021-08-01] MEDS ORDERED: BISACODYL SUPP (10 MG) 10 MG/SUPP.RECT SUPP.RECT RC PRN (18:00)
[2021-08-01] MEDS ORDERED: MIDODRINE HCL (5MG) 5 MG TABLET GT PRN (18:00)
[2021-08-01] MEDS ORDERED: Medication Not On Formulary EA (Ipratropium/Albuterol Sulfate (Combivent Respimat 20-100 IH PRN (18:00)
[2021-08-01] MEDS ORDERED: Medication Not On Formulary EA (Ipratropium/Albuterol Sulfate (Combivent Respimat 20-100 IH SCH (18:00)
[2021-08-01] MEDS ORDERED: GLUCERNA 1.5 1,000 ML BOTTLE GT PRN (18:00)
[2021-08-01] MEDS ORDERED: ONDANSETRON HCL/PF 4 MG/2 ML VIAL IVP PRN (18:00)
[2021-08-01] MEDS ORDERED: IV NS 0.9% 1,000 ML IV SCH (18:00)
[2021-08-01] MEDS ORDERED: NA PHOS,M-B/NA PHOS,DI-BA 1 EA ENEMA RC PRN (18:00)
[2021-08-01] MEDS ORDERED: Z GUARD REMEDY 4 OZ OINT TP PRN (18:00)
[2021-08-01] MEDS ORDERED: ACETAMINOPHEN ES 500 MG TABLET GT PRN (18:00)
[2021-08-01] MEDS ORDERED: MAGNESIUM HYDROXIDE 30 ML UDC GT PRN (18:00)
[2021-08-01] MEDS ORDERED: hydrALAZINE HCL IV 20 MG VIAL IV PRN (18:00)
[2021-08-01 18:01] LABS: BILIRUBIN,URINE NEGATIVE (NEGATIVE); COLOR,URINE YELLOW (YELLOW); LEUKOCYTE ESTERASE ,URINE LARGE (NEGATIVE); NITRITE, URINE NEGATIVE (NEGATIVE); PH,URINE 5.5 (5.0-8.0); PROTEIN,URINE TRACE mg/dl (NEGATIVE); UGLUCOSE NEGATIVE (NEGATIVE); UROBILINOGEN,URINE 0.2 EU/dL (0.2)
[2021-08-01 18:11] LABS: BACTERIA,URINE 3+ /HPF (None Seen); RBC,URINE 21-50 /HPF (0-2); SQUAMOUS EPITHELIAL CELL,UR 0-2 /HPF (None Seen); WBC,URINE 51-80 /HPF (0-3)
--- NOTE | 2021-08-01 18:30 | NUR ---
TECH BRIGITTE CAME TO DO LOWER EXTREMITY BILATERAL DOPPLER VENOUS MARILIA. PATIENT'S LOWER EXTREMITIES ARE CONTRACTED. TECH CANNOT PERFORM THE TEST.
--- NOTE | 2021-08-01 19:00 | NUR ---
ABLE TO GET A CONSENT FOR POSSIBLE BLOOD TRANSFUSION FROM SON ELENA BY PHONE. WITNESSED BY 2 RN SHEILA/REYNA
[2021-08-01 19:28] LABS: CALCIUM, SERUM 8.7 mg/dL (8.5-10.1); CREATININE 1.9 mg/dL (0.6-1.3); POTASSIUM 4.5 mmol/L (3.5-5.1)
[2021-08-01 19:32] LABS: BILIRUBIN,DIRECT 0.2 mg/dL (0.0-0.2); BILIRUBIN,TOTAL 0.4 mg/dL (0.2-1.0)
[2021-08-01 19:36] LABS: BILIRUBIN,DIRECT 0.1 mg/dL (0.0-0.2); BILIRUBIN,TOTAL 0.4 mg/dL (0.2-1.0)
[2021-08-01 19:37] LABS: ALBUMIN 2.1 g/dL (3.4-5.0); TOTAL PROTEIN, SERUM 6.9 g/dL (6.4-8.2)
[2021-08-01 20:00] VITALS: BP 112/50
--- NOTE | 2021-08-01 20:11 | NUR ---
RN notes Received report from ER nurse ROBERT Yan
--- NOTE | 2021-08-01 20:11 | NUR ---
REPORT GIVEN TO VLAD
[2021-08-01] MEDS ORDERED: ALBUTEROL FS 2.5 MG/3 ML VIAL.NEB NEB PRN (20:30)
[2021-08-01] MEDS ORDERED: IPRATROPIUM NEB FS 0.5 MG/2.5 ML AMPUL.NEB NEB PRN (20:30)
[2021-08-01] MEDS ORDERED: Sodium Chloride 154 MEQ in IV 10% DEXTROSE 1,000 ML IV PRN (20:30)
--- NOTE | 2021-08-01 20:30 | NUR ---
RN notes Called Lab and spoke with Pasha regarding 1 unit PRBC. Hieu stated PRBC needs special order from [facility] and it will not be ready for tonight. Charge nurse is aware and informed.
--- NOTE | 2021-08-01 20:47 | NUR ---
TO GIVE ANOTHER DOSE OF D50% 50CC. RECHECKED BS 82. PER CN MARCUS NOT TO GIVE. ROBERT HOGUE MADE AWARE
--- NOTE | 2021-08-01 20:47 | NUR ---
fuentes BS 82. HENRI Costa
[2021-08-01] MEDS: HEPARIN SODIUM, PORCINE 5000 UNITS/1 ML VIAL SQ SCH (21:00)
--- NOTE | 2021-08-01 21:26 | NUR ---
TRANSFERED PATIENT TO ROOM 322-1.
--- NOTE | 2021-08-01 21:30 | NUR ---
RN notes Received 50% dextrose from ROBERT Yan
--- NOTE | 2021-08-01 21:32 | NUR ---
ENDORSED D50% 50CC ENDORSED TO ROBERT HOGUE
--- NOTE | 2021-08-01 21:35 | NUR ---
information writer notes Received Pt from ER nurse ROBERT Yan. Pt arrived at the unit with a gurney and ACLS protocol and Rt's. Pt is non verbal, and able to open eyes. On mec. vent with O2 sat is 100%. VS is stable. No SOB. No S/S of distress noted. Tele monitor showed SR. CARL midline# 19 is clean, intact and flushes well. Mcelroy cath is intact and draining yellow urine. Skin assessment is done and performed. Pictures are taken and placed in Pt's chart. Admission order received from . Safety precautions is maintained. Bed at low position, brakes locked, side rails upX3, hob elevated and call light is within reach. Will continue to monitor.
[2021-08-01] MEDS: EPOETIN ALFA-EPBX 4,000 UNIT/ML VIAL SQ SCH (22:10)
[2021-08-01] MEDS: PANTOPRAZOLE 40 MG VIAL IV SCH (22:13)
[2021-08-01] MEDS: *INSULIN REGULAR(HUMULIN R)HUM 100 UNIT/ML VIAL SQ PRN (22:25)
[2021-08-01] MEDS: BLOOD SUGAR DIAGNOSTIC 1 EACH STRIP VI SCH (22:25)
[2021-08-01] MEDS: MEROPENEM 500 MG in IV NS 0.9% 50 ML IV SCH (22:27)
[2021-08-01 22:56] VITALS: BP 116/56
--- NOTE | 2021-08-01 23:00 | NUR ---
RN notes 1 Unit PRBC is infuising. Blood product is checked and cosigned with ROBERT Castaneda. VS as follows: temp 98.9 F. BP 116/56. HR 95. O2 sat is 100%. Resp 18.
[2021-08-01 23:03] LABS: HEMOGLOBIN 6.4 g/dL (11.5-14.8)
--- NOTE | 2021-08-01 23:03 | NUR ---
RN notes Received a critical lab for hemoglobin 6.4. 1 unit PRBC just started and still infusing. Will continue to monitor.
[2021-08-01 23:14] VITALS: BP 122/57
--- NOTE | 2021-08-01 23:26 | NUR ---
RN notes Informed and notified Dr. Singh regarding Pt's tube feeding. Informed MD that Pt is getting glucerna 1.5 at her facility and per house sup. we dont have glucerna 1.2 at this time. MD ordered glucerna 1.2. ordered carry out. charge nurse is aware and informed.
[2021-08-01 23:43] VITALS: BP 122/59
[2021-08-02] VITALS: BP 122/59
[2021-08-02 00:30] VITALS: BP 130/62
[2021-08-02] MEDS ORDERED: GLUCERNA 1.2 1,000 ML BOTTLE NG PRN (00:30)
[2021-08-02] MEDS ORDERED: GLUCERNA 1.2 1,000 ML BOTTLE GT SCH (00:30)
[2021-08-02] MEDS: IPRATROPIUM NEB FS 0.5 MG/2.5 ML AMPUL.NEB NEB SCH ×4 (01:49→19:56)
[2021-08-02] MEDS: ALBUTEROL FS 2.5 MG/3 ML VIAL.NEB NEB SCH ×4 (01:49→19:56)
[2021-08-02 01:58] VITALS: BP 134/64
--- NOTE | 2021-08-02 02:00 | NUR ---
RN notes 1 unit PRBC finished transfusing. VS is stable. No SOB. Afebrile. No S/S of distress noted. Pt tolerated activity well.
[2021-08-02 04:00] VITALS: BP 133/68
[2021-08-02] MEDS: BLOOD SUGAR DIAGNOSTIC 1 EACH STRIP VI SCH ×4 (06:24→22:51)
[2021-08-02] MEDS: INSULIN REGULAR, HUMAN 100 UNIT/ML 3 ML VIAL SQ PRN ×3 (06:24→17:34)
--- NOTE | 2021-08-02 06:41 | NUR ---
clin nurse spec closing notes Pt is resting in bed comfortably. Pt is non verbal and able to open eyes. On [facility]. vent. O2 sat is 100%. No SOB. No S/S of distress noted. Tele monitor showed SR hr 93. CARL midline is clean, intact and infusing well sodium chloride 154meq in IV dex 10% @ 50 ml/hr. kaur cath is inplaced and draining yellow urine 950 ml. Routine meds were given as ordered. Wound care provided. Kept Pt clean, dry and comfortable. Will endorse to am nurse for NEIL. Addendum: 08/02/21 at 0701 by LENNIE OJEDA RN safety precautions is maintained. Bed at low position, brakes locked, side rails upX3, hob elevated and call light is within reach. Will endorse to am nurse for NEIL.
[2021-08-02 07:26] LABS: ALBUMIN 2.1 g/dL (3.4-5.0); BILIRUBIN,TOTAL 0.6 mg/dL (0.2-1.0); CALCIUM, SERUM 8.6 mg/dL (8.5-10.1); MAGNESIUM 2.1 mg/dL (1.8-2.4); PHOSPHORUS 2.7 mg/dL (2.5-4.9); POTASSIUM 4.3 mmol/L (3.5-5.1); TOTAL PROTEIN, SERUM 7.1 g/dL (6.4-8.2)
[2021-08-02 07:28] LABS: BASOPHILS # (AUTO) 0.1 K/uL (0.0-0.2); BASOPHILS % (AUTO) 0.4 % (0.0-2.0); EOSINOPHILS % (AUTO) 0.9 % (0.0-6.0); HEMATOCRIT 22 % (33-45); HEMOGLOBIN 7.3 g/dL (11.5-14.8); LYMPHOCYTES # (AUTO) 1.6 K/uL (0.8-4.8); MEAN CORPUSCULAR HGB CONC 33 g/dl (31.0-36.0); MEAN CORPUSCULAR VOLUME 94 fL (82-100); MONOCYTES # (AUTO) 0.6 K/uL (0.1-1.30); MONOCYTES % (AUTO) 3.7 % (2.0-12.0); NEUTROPHILS # (AUTO) 12.5 K/uL (1.8-8.9); PLATELET COUNT (AUTO) 308 K/uL (150-450); RED BLOOD CELL COUNT(AUTO) 2.34 MIL/uL (4.0-5.2); WHITE BLOOD COUNT (AUTO) 14.9 K/uL (4.3-11.0)
--- NOTE | 2021-08-02 07:30 | NUR ---
STAMP REDEMPTION CLERK OPENING NOTES RECEIVED PATIENT ON BED, NONVERBAL. ON MECHANICAL VENT TOLERATING CURRENT SETTINGS. NO SOB NOTED. NOT IN DISTRESS. WITH NO SIGNS OF PAIN OR DISCOMFORT VIA FLACC LEVEL OF PAIN. ON TELE MONITOR CURRENTLY READING SINUS TACHYCARDIA AT 110BPM. WITH IV ACCESS AT RIGHT UPPER ARM MIDLINE G18 WITH SODIUM CHLORIDE 154MEQ IN IV DEXTROSE 10% AT 50ML/HR INFUSING WELL. WITH OH CATHETER IN PLACE DRAINING CLEAR YELLOW URINE. SAFETY MEASURES IN PLACED. CALL LIGHT WITHIN REACH. BED ON LOWEST LOCKED POSITION. SIDE RAILS UP. WILL CONTINUE TO MONITOR.
[2021-08-02] MEDS: HEPARIN SODIUM, PORCINE 5000 UNITS/1 ML VIAL SQ SCH ×2 (09:00→21:00)
[2021-08-02] MEDS: METOPROLOL TARTRATE 25 MG TABLET GT SCH ×2 (09:00→16:36)
[2021-08-02] MEDS: AMLODIPINE BESYLATE 5 MG TABLET GT SCH (09:00)
[2021-08-02] MEDS ORDERED: VANCOMYCIN HCL 1.25 GM in IV D5W 260 ML IV SCH (09:00)
[2021-08-02] MEDS ORDERED: Medication Not On Formulary EA (Cran/Vitc/Mannose/Inulin/Brom (Uti-Stat Liquid) 3,875 MG GT SCH (09:00)
[2021-08-02] MEDS ORDERED: MEROPENEM 1 G in IV NS 0.9% 100 ML IV SCH (09:00)
[2021-08-02] MEDS: ASCORBIC ACID 500 MG TABLET GT SCH (09:44)
[2021-08-02] MEDS: FERROUS SULFATE UDC 300 MG/5 ML UDC GT SCH (09:44)
[2021-08-02] MEDS: CHLORHEXIDINE GLUCONATE 15 ML UDC MM SCH ×2 (09:44→16:36)
[2021-08-02] MEDS: DOCUSATE SODIUM LIQ 100 MG/10 ML UDC GT SCH ×2 (09:44→16:36)
[2021-08-02] MEDS: PANTOPRAZOLE 40 MG VIAL IV SCH ×2 (09:44→16:36)
[2021-08-02] MEDS: MULTIVIT W/MINERALS 1 TAB TABLET GT SCH (09:44)
[2021-08-02] MEDS: PROSOURCE / PROSTAT (PYXIS) 30 ML UDC GT SCH (09:45)
[2021-08-02] MEDS: MEROPENEM 500 MG in IV NS 0.9% 50 ML IV SCH ×2 (09:46→22:43)
[2021-08-02] MEDS: INSULIN GLARGINE, 100 UNIT/ML CARTRIDGE SQ SCH ×2 (09:48→17:33)
[2021-08-02 14:30] LABS: HEMOGLOBIN 8.3 g/dL (11.5-14.8)
[2021-08-02] MEDS: DAKINS QUARTER STRENGTH (0.125%) 480 ML BOTTLE TOP SCH (14:57)
[2021-08-02] MEDS ORDERED: VANCOMYCIN HCL 0.75 GM in IV D5W 250 ML IV SCH (16:00)
[2021-08-02] MEDS ORDERED: Sodium Chloride 154 MEQ in IV 10% DEXTROSE 1,000 ML IV SCH (18:00)
--- NOTE | 2021-08-02 19:10 | NUR ---
RN notes Called Pt's daughter Jennifer Toribio ([phone]) to get a consent for a debriment. Pt's daughter didn't answer the phone. Per am nurse, am nurse called Jennifer earlier and no answered. Will try again.
--- NOTE | 2021-08-02 19:29 | NUR ---
RN notes Called Eliceo Quiroz for covid vaccination. No one answered. Will try again.
--- NOTE | 2021-08-02 19:30 | NUR ---
RN notes Called Pt's son Janes ([phone]) to get consent for debriment. Leave a message. awaiting for Pt's to call back.
--- NOTE | 2021-08-02 19:30 | NUR ---
editing clerk opening notes Pt is resting in bed comfortably. Pt is non verbal and able to open eyes. On mec. vent. O2 sat is 100%. No SOB. No S/S of distress noted. Tele monitor showed S tachy hr 101. CARL midline is clean, intact and infusing well sodium chloride 154meq in IV dex 10% @ 50 ml/hr. kaur cath is inplaced and draining yellow urine. Safety precautions is maintained. Bed at low position, brakes locked, side rails upX3, hob elevated, bed alarm is on and call light is within reach. Will continue to monitor.
--- NOTE | 2021-08-02 19:30 | NUR ---
FILTER TANK TENDER HELPER CLOSING NOTES PATIENT ON BED, NONVERBAL. ON MECHANICAL VENT TOLERATING CURRENT SETTINGS. NO SOB NOTED. NOT IN DISTRESS. WITH NO SIGNS OF PAIN OR DISCOMFORT VIA FLACC LEVEL OF PAIN. ON TELE MONITOR CURRENTLY READING SINUS RHYTHM AT 96BPM. WITH IV ACCESS AT RIGHT UPPER ARM MIDLINE G18 WITH SODIUM CHLORIDE 154MEQ IN IV DEXTROSE 10% AT 50ML/HR INFUSING WELL. WITH OH CATHETER IN PLACE DRAINING CLEAR YELLOW URINE AT 600CC. DUE MEDS GIVEN. PATIENT IS FOR DEBRIDEMENT OF SACRUM AND LEFT HEEL. STILL TO OBTAIN CONSENT. BEEN CALLING DAUGHTER LEON PAYNE FOR 6 TIMES BUT NOT ANSWERING. BEEN ABLE TO LEAVE A MESSAGE REGARDING THE PROCEDURE TO BE DONE TOMORROW. ENDORSED TO ROBERT HOGUE REGARDING PATIENT'S PROCEDURE AND CONSENT IS STILL TO BE OBTAINED. SAFETY MEASURES IN PLACED. CALL LIGHT WITHIN REACH. BED ON LOWEST LOCKED POSITION. SIDE RAILS UP. WILL ENDORSE TO NEXT SHIFT FOR NEIL.
[2021-08-02 20:00] VITALS: BP 105/46
--- NOTE | 2021-08-02 21:20 | NUR ---
RN notes Held heparin inj for serial debriment in am. will continue to monitor.
[2021-08-02 22:53] LABS: HEMOGLOBIN 7.2 g/dL (11.5-14.8)
[2021-08-02] MEDS: *INSULIN REGULAR(HUMULIN R)HUM 100 UNIT/ML VIAL SQ PRN (22:54)
[2021-08-02] MEDS: GLUCERNA 1.2 1,000 ML BOTTLE GT PRN (23:02)
--- NOTE | 2021-08-02 23:33 | NUR ---
RN notes Informed Pt for R hip intramedullary nail surgery tomorrow and to get a consent. Pt refused to sign. Pt stated " I need to talk to my doctor first. It's important! Pt gave Pt's primary MD phone number. Abelino Sun [phone]. Charge nurse is aware and informed. Addendum: 08/02/21 at 8786 by LENNIE OJEDA RN Ignore this message. Its for a different Pt.
[2021-08-03] VITALS: BP 117/45
[2021-08-03] MEDS: ALBUTEROL FS 2.5 MG/3 ML VIAL.NEB NEB SCH ×4 (01:08→19:53)
[2021-08-03] MEDS: IPRATROPIUM NEB FS 0.5 MG/2.5 ML AMPUL.NEB NEB SCH ×4 (01:08→19:53)
--- NOTE | 2021-08-03 01:22 | NUR ---
RT NOTE PT IS ON [facility] VENT SETTINGS ORDERED. TRACH IS PATENT AND SECURED. SXED PT PRN. SPARE TRACH AND AMBU BAG AT BEDSIDE. VENT IS PLUGGED INTO RED OUTLET AND ALARMS ARE ON AND AUDIBLE. NO SOB OR RESPIRATORY DISTRESS NOTED. WILL CONTINUE TO MONITOR T/O SHIFT
[2021-08-03 04:00] VITALS: BP 142/72
[2021-08-03] MEDS: INSULIN REGULAR, HUMAN 100 UNIT/ML 3 ML VIAL SQ PRN ×3 (06:19→17:27)
[2021-08-03] MEDS: BLOOD SUGAR DIAGNOSTIC 1 EACH STRIP VI SCH ×4 (06:19→22:16)
--- NOTE | 2021-08-03 06:30 | NUR ---
rug designer closing notes Pt is resting in bed comfortably. Pt is non verbal. On mec. vent. with O2 sat is 100%. No SOB. No S/S of distress noted. Tele monitor showed SR hr 96. CARL midline is clean, intact and infusing well sodium chloride 154meq in IV dex 10% @ 50 ml/hr. kaur cath is inplaced and draining yellow urine 400 ml. Routine meds were given as ordered. Wound care provided as ordered. Unable to get a consent from family. Leave a message still waiting for family to call back. Kept Pt clean, dry and comfortable. Safety precautions is maintained. Bed at low position, brakes locked, side rails upX3, hob elevated and call light is within reach. Will endorse to am nurse for NEIL.
[2021-08-03 06:58] LABS: HEMOGLOBIN 7.3 g/dL (11.5-14.8)
[2021-08-03 07:01] LABS: ALBUMIN 2.1 g/dL (3.4-5.0); BILIRUBIN,TOTAL 0.3 mg/dL (0.2-1.0); CALCIUM, SERUM 8.6 mg/dL (8.5-10.1); POTASSIUM 4.5 mmol/L (3.5-5.1); TOTAL PROTEIN, SERUM 7.3 g/dL (6.4-8.2)
--- NOTE | 2021-08-03 07:30 | NUR ---
REPAIRER VENEER SHEET OPENING NOTES RECEIVED PATIENT ON BED, NONVERBAL. ON MECHANICAL VENT TOLERATING CURRENT SETTINGS. NO SOB NOTED. NOT IN DISTRESS. WITH NO SIGNS OF PAIN OR DISCOMFORT VIA FLACC LEVEL OF PAIN. ON TELE MONITOR CURRENTLY READING SINUS RHYTHM AT 92BPM. WITH IV ACCESS AT RIGHT UPPER ARM MIDLINE G18 WITH SODIUM CHLORIDE 154MEQ IN IV DEXTROSE 10% AT 50ML/HR INFUSING WELL. WITH OH CATHETER IN PLACE DRAINING CLEAR YELLOW URINE. SAFETY MEASURES IN PLACED. CALL LIGHT WITHIN REACH. BED ON LOWEST LOCKED POSITION. SIDE RAILS UP. WILL CONTINUE TO MONITOR.
[2021-08-03 08:00] VITALS: BP 139/73
[2021-08-03] MEDS: ASCORBIC ACID 500 MG TABLET GT SCH (08:30)
[2021-08-03] MEDS: PANTOPRAZOLE 40 MG VIAL IV SCH ×2 (08:30→16:38)
[2021-08-03] MEDS: FERROUS SULFATE UDC 300 MG/5 ML UDC GT SCH (08:30)
[2021-08-03] MEDS: MULTIVIT W/MINERALS 1 TAB TABLET GT SCH (08:30)
[2021-08-03] MEDS: DOCUSATE SODIUM LIQ 100 MG/10 ML UDC GT SCH ×2 (08:30→16:38)
[2021-08-03] MEDS: ACETAMINOPHEN 325 MG TABLET PO PRN (08:30)
[2021-08-03] MEDS: CHLORHEXIDINE GLUCONATE 15 ML UDC MM SCH ×2 (08:30→16:38)
[2021-08-03] MEDS: METOPROLOL TARTRATE 25 MG TABLET GT SCH ×2 (08:31→16:38)
[2021-08-03] MEDS: AMLODIPINE BESYLATE 5 MG TABLET GT SCH (08:31)
[2021-08-03] MEDS: PROSOURCE / PROSTAT (PYXIS) 30 ML UDC GT SCH (08:32)
[2021-08-03] MEDS: INSULIN GLARGINE, 100 UNIT/ML CARTRIDGE SQ SCH ×3 (08:38→17:24)
[2021-08-03] MEDS: DAKINS QUARTER STRENGTH (0.125%) 480 ML BOTTLE TOP SCH ×2 (08:39)
[2021-08-03] MEDS: HEPARIN SODIUM, PORCINE 5000 UNITS/1 ML VIAL SQ SCH (09:00)
--- NOTE | 2021-08-03 09:00 | NUR ---
RN NOTE OBTAINED CONSENT FROM SON NAMED ELENA FOR SACRAL DEBRIDEMENT AND LEFT HEEL DEBRIDEMENT AND PLACED IN CHART.
[2021-08-03] MEDS: MEROPENEM 500 MG in IV NS 0.9% 50 ML IV SCH ×2 (09:06→22:06)
--- NOTE | 2021-08-03 09:40 | NUR ---
WOUND CARE CONSULT: PT FOLLOWED BY SURGICAL AND PODIATRY TEAMS FOR WOUNDS, PRESENT ON ADMISSION WHICH INCLUDE SACRAL STAGE 4 ULCER AND FOOT WOUNDS. DEFER TO SURGICAL TEAMS CURRENTLY ON CASE. RECOMMENDATIONS MADE FOR SKIN PROTECTION. DISCUSSED WITH NURSING STAFF. HILDA ISOFLEX LOW AIRLOSS BED TO BE PLACED. MD IN AGREEMENT WITH PLAN OF CARE.
[2021-08-03 12:00] VITALS: BP 138/70
--- NOTE | 2021-08-03 13:00 | NUR ---
RN NOTE ASSISTED DR. FRAZIER FOR LEFT HEEL DEBRIDEMENT. WILL CONTINUE TO MONITOR.
[2021-08-03 14:18] LABS: HEMOGLOBIN 7.3 g/dL (11.5-14.8)
[2021-08-03] MEDS: EPOETIN ALFA-EPBX 4,000 UNIT/ML VIAL SQ SCH (14:50)
[2021-08-03 16:00] VITALS: BP 128/62
[2021-08-03] MEDS: IV NS 0.9% 1,000 ML IV PRN (17:03)
--- NOTE | 2021-08-03 19:30 | NUR ---
HOUSEMAID OPENING NOTE RECEIVED PATIENT ON BED, NONVERBAL. ON MECHANICAL VENT TOLERATING CURRENT SETTINGS. NO SOB OR S/S OF RESPIRATORY DISTRESS NOTED. ON EXTERNAL MONITOR CURRENTLY READING SINUS RHYTHM AT 90 BPM. WITH IV ACCESS AT RIGHT UPPER ARM MIDLINE 18 GAUGE RUNNING NS AT 100ML/HR. WITH OH CATHETER IN PLACE DRAINING CLEAR YELLOW URINE. SAFETY PRECAUTIONS IN PLACE. BED IN LOWEST LOCKED POSITION, HOB ELEVATED, SIDE RAILS UP X3, AND CALL LIGHT AND TABLE WITHN REACH. ALL NEEDS MET AT THIS TIME.
--- NOTE | 2021-08-03 19:30 | NUR ---
ESCROW CLOSER CLOSING NOTES PATIENT ON BED, NONVERBAL. ON MECHANICAL VENT TOLERATING CURRENT SETTINGS. NO SOB NOTED. NOT IN DISTRESS. WITH NO SIGNS OF PAIN OR DISCOMFORT VIA FLACC LEVEL OF PAIN. ON TELE MONITOR CURRENTLY READING SINUS RHYTHM AT 92BPM. WITH IV ACCESS AT RIGHT UPPER ARM MIDLINE G18 WITH NS AT 100ML/HR INFUSING WELL. WITH OH CATHETER IN PLACE DRAINING CLEAR YELLOW URINE. DUE MEDS GIVEN. SAFETY MEASURES IN PLACED. CALL LIGHT WITHIN REACH. BED ON LOWEST LOCKED POSITION. SIDE RAILS UP. WILL ENDORSE TO NEXT SHIFT FOR NEIL.
[2021-08-03] MEDS: *INSULIN REGULAR(HUMULIN R)HUM 100 UNIT/ML VIAL SQ PRN (22:18)
[2021-08-03 23:29] LABS: HEMOGLOBIN 6.9 g/dL (11.5-14.8)
--- NOTE | 2021-08-03 23:55 | NUR ---
RN NOTE PT HGB 6.9. LEASE ADMINISTRATOR TIAAR AWARE WITH ORDER FOR 1 UNIT PRBC. CALLED LAB BUT THERE IS NO CLS TO DISPENSE BLOOD. TRANSFUSION WILL OCCUR ONCE CLS COMES IN. CHARGE NURSE SHONDA AND IVANNA MENJIVAR AWARE.
[2021-08-04] VITALS: BP 141/69
[2021-08-04] MEDS: ALBUTEROL FS 2.5 MG/3 ML VIAL.NEB NEB SCH ×4 (00:44→20:19)
[2021-08-04] MEDS: IPRATROPIUM NEB FS 0.5 MG/2.5 ML AMPUL.NEB NEB SCH ×4 (00:44→20:19)
[2021-08-04] MEDS: IV NS 0.9% 1,000 ML IV PRN ×3 (01:40→22:59)
[2021-08-04 04:00] VITALS: BP 144/72
[2021-08-04] MEDS: GLUCERNA 1.2 1,000 ML BOTTLE GT PRN (04:28)
[2021-08-04] MEDS: BLOOD SUGAR DIAGNOSTIC 1 EACH STRIP VI SCH ×4 (06:31→21:46)
[2021-08-04] MEDS: INSULIN REGULAR, HUMAN 100 UNIT/ML 3 ML VIAL SQ PRN ×3 (06:32→16:47)
--- NOTE | 2021-08-04 06:44 | NUR ---
SHALE PROCESSING TECHNICIAN CLOSING NOTE PATIENT ON BED, NONVERBAL. ON MECHANICAL VENT TOLERATING CURRENT SETTINGS. NO SOB OR S/S OF RESPIRATORY DISTRESS NOTED. ON EXTERNAL MONITOR CURRENTLY READING SINUS RHYTHM AT 98 BPM. WITH IV ACCESS AT RIGHT UPPER ARM MIDLINE 18 GAUGE RUNNING NS AT 100ML/HR. WITH OH CATHETER IN PLACE DRAINING CLEAR YELLOW URINE, DRAINED 1000 ML THIS SHIFT. ALL WOUND TREATMENT DONE ORDERED. KEPT CLEAN AND DRY. DUE MEDS GIVEN ORDERED. TURNED AND REPOSITIONED Q2H. CALLED LAB AND BLOOD STILL NOT READY, WILL ENDORSE TO ONCOMING NURSE TO FOLLOW UP. SAFETY PRECAUTIONS IN PLACE AT ALL TIMES. BED IN LOWEST LOCKED POSITION, HOB ELEVATED, SIDE RAILS UP X3, AND CALL LIGHT AND TABLE WITHIN REACH. ALL NEEDS MET AT THIS TIME AND WILL ENDORSE TO ONCOMING SHIFT FOR NEIL.
[2021-08-04 07:04] LABS: HEMOGLOBIN 7.7 g/dL (11.5-14.8)
--- NOTE | 2021-08-04 07:20 | NUR ---
RN OPENING NOTES RECEIVED PATIENT IN BED, AWAKE, NON-VERBAL. ON TRACH TO VENT WITH SETTINGS TOLERATING WELL. NO SOB NOTED. ON TELE MONITOR WITH CURRENT READING OF SINUS RHYTHM, HR @98. NOTED WITH IV ACCESS ON RIGHT UPPER ARM MIDLINE, INTACT. WITH IVF OF NS @100ML/HR RUNNING. G-TUBE INTACT AND PATENT. GLUCERNA 1.2 @55ML/HR RUNNING, TOLERATED WELL. ASPIRATION PRECAUTIONS AND SAFETY MEASURES MAINTAINED. BED IN LOWEST AND LOCKED POSITION, SR UP, CALL LIGHT PLACED WITHIN EASY REACH. WILL CONTINUE TO MONITOR.
[2021-08-04 07:37] LABS: ALBUMIN 2.1 g/dL (3.4-5.0); BILIRUBIN,TOTAL 0.4 mg/dL (0.2-1.0); CALCIUM, SERUM 8.8 mg/dL (8.5-10.1); CREATININE 1.8 mg/dL (0.6-1.3); POTASSIUM 4.5 mmol/L (3.5-5.1); TOTAL PROTEIN, SERUM 7.4 g/dL (6.4-8.2)
[2021-08-04 08:00] VITALS: BP 130/40
[2021-08-04] MEDS: CHLORHEXIDINE GLUCONATE 15 ML UDC MM SCH ×2 (08:39→16:46)
[2021-08-04] MEDS: FERROUS SULFATE UDC 300 MG/5 ML UDC GT SCH (08:39)
[2021-08-04] MEDS: ASCORBIC ACID 500 MG TABLET GT SCH (08:39)
[2021-08-04] MEDS: DOCUSATE SODIUM LIQ 100 MG/10 ML UDC GT SCH ×2 (08:39→16:46)
[2021-08-04] MEDS: PANTOPRAZOLE 40 MG VIAL IV SCH ×2 (08:39→16:46)
[2021-08-04] MEDS: MULTIVIT W/MINERALS 1 TAB TABLET GT SCH (08:39)
[2021-08-04] MEDS: DAKINS QUARTER STRENGTH (0.125%) 480 ML BOTTLE TOP SCH ×2 (08:40→08:42)
[2021-08-04] MEDS: AMLODIPINE BESYLATE 5 MG TABLET GT SCH (08:40)
[2021-08-04] MEDS: METOPROLOL TARTRATE 25 MG TABLET GT SCH ×2 (08:40→17:54)
[2021-08-04] MEDS: PROSOURCE / PROSTAT (PYXIS) 30 ML UDC GT SCH (08:41)
[2021-08-04] MEDS: INSULIN GLARGINE, 100 UNIT/ML CARTRIDGE SQ SCH ×2 (09:05→16:49)
[2021-08-04] MEDS: MEROPENEM 500 MG in IV NS 0.9% 50 ML IV SCH ×2 (09:20→21:46)
--- NOTE | 2021-08-04 09:31 | NUR ---
RN NOTES SEEN BY DR. EMMANUEL, MADE AWARE THAT PATIENT WASN'T GIVEN BT YET AND CURRENT HGB IS 7.7. PER MD NO NEED TO GIVE BT FOR NOW.
[2021-08-04 12:00] VITALS: BP 123/48
[2021-08-04 14:39] LABS: HEMOGLOBIN 7.6 g/dL (11.5-14.8)
[2021-08-04 16:00] VITALS: BP 128/52
--- NOTE | 2021-08-04 18:57 | NUR ---
RN CLOSING NOTES PATIENT RESTING IN BED. REMAINS ON TRACH TO VENT WITH THE FOLLOWING SETTINGS: AC 18, TV 550, FIO2 40%, PEEP 5. TOLERATING SETTINGS WELL. NO SOB NOTED. ON TELE MONITOR WITH CURRENT READING OF SINUS RHYTHM, HR @94. NOTED WITH IV ACCESS ON RIGHT UPPER ARM MIDLINE, INTACT. WITH IVF OF NS @100ML/HR RUNNING. G-TUBE INTACT AND PATENT. GLUCERNA 1.2 @55ML/HR RUNNING, TOLERATED WELL. ASPIRATION PRECAUTIONS AND SAFETY MEASURES MAINTAINED. BED IN LOWEST AND LOCKED POSITION, SR UP, CALL LIGHT PLACED WITHIN EASY REACH. WILL ENDORSE TO NEXT SHIFT FOR NEIL.
--- NOTE | 2021-08-04 19:20 | NUR ---
RN NOTE PT AWAKE, NONVERBAL. ON TRACH AND TOLERATING SETTINGS WELL. RESPIRATIONS EVEN/UNLABORED. IV SITE CARL MIDLINE INTACT/PATENT, RUNNING NS @100ML/HR. GT IN PLACE/PATENT, ON GTF GLUCERNA @55ML/HR, TYRONE WELL. F/C DRAINING CLEAR YELLOW URINE. ON TELE MONITOR, READING SR, HR 98. PT IN NO ACUTE DISTRESS. SAFETY MEASURES IN PLACE. WILL CONT TO MONITOR.
[2021-08-04 20:00] VITALS: BP 140/68
[2021-08-04 22:19] LABS: HEMOGLOBIN 7.8 g/dL (11.5-14.8)
--- NOTE | 2021-08-04 23:36 | NUR ---
RT PT RECVD AWAKE AND ALERT ON ORDERED MECH VENT SETTINGS. TRACH IS PATENT AND SECURED, NEB TX GIVEN AND TYRONE WELL WITH NO ADVERSE REACTION. SUCTION DONE PRN AND TRACH CARE DONE. VENT IS PLUGGED INTO RED WALL OUTLET WITH ALARMS ON AND AUDIBLE. SPARE TRACH AND AMBU BAG AT BEDSIDE. NO SOB OR RESPIRATORY DISTRESS NOTED AT THIS TIME.
[2021-08-05] VITALS: BP 138/65
[2021-08-05] MEDS: ALBUTEROL FS 2.5 MG/3 ML VIAL.NEB NEB SCH ×4 (01:57→19:35)
[2021-08-05] MEDS: IPRATROPIUM NEB FS 0.5 MG/2.5 ML AMPUL.NEB NEB SCH ×4 (01:57→19:35)
[2021-08-05] MEDS: GLUCERNA 1.2 1,000 ML BOTTLE GT PRN (05:15)
[2021-08-05] MEDS: BLOOD SUGAR DIAGNOSTIC 1 EACH STRIP VI SCH ×4 (06:20→21:58)
[2021-08-05 06:57] LABS: CALCIUM, SERUM 8.7 mg/dL (8.5-10.1); CREATININE 1.6 mg/dL (0.6-1.3); POTASSIUM 4.3 mmol/L (3.5-5.1)
--- NOTE | 2021-08-05 07:00 | NUR ---
RN NOTE PT AWAKE, KEEPS EYES CLOSED, NONVERBAL. ON TRACH/VENT AND TOLERATING VENT SETTINGS WELL. IV SITE CARL MIDLINE INTACT/PATENT, RUNNING NS @100ML/HR. GT IN PLACE/PATENT, ON GTF GLUCERNA @55ML/HR, TYRONE WELL. F/C DRAINING CLEAR YELLOW URINE. ON TELE MONITOR, READING SR, HR RANGES FROM 90-115. PT IN NO ACUTE DISTRESS. SAFETY MEASURES MAINTAINED. ENDORSED TO NEXT SHIFT NURSE.
--- NOTE | 2021-08-05 07:30 | NUR ---
RN OPENING NOTES RECEIVED PATIENT RESTING IN BED. REMAINS ON TRACH TO VENT WITH THE FOLLOWING SETTINGS: AC 18, TV 550, FIO2 40%, PEEP 5. TOLERATING SETTINGS WELL. NO SOB NOTED. ON TELE MONITOR WITH CURRENT READING OF SINUS RHYTHM, HR @96. IV ACCESS ON RIGHT UPPER ARM MIDLINE, INTACT. WITH IVF OF NS @100ML/HR RUNNING. G-TUBE INTACT AND PATENT. NO RESIDUAL NOTED. GLUCERNA 1.2 @55ML/HR RUNNING, TOLERATED WELL. ASPIRATION PRECAUTIONS AND SAFETY MEASURES MAINTAINED. BED IN LOWEST AND LOCKED POSITION, SR UP, CALL LIGHT PLACED WITHIN EASY REACH. WILL CONTINUE TO MONITOR PATIENT.
[2021-08-05] MEDS: FERROUS SULFATE UDC 300 MG/5 ML UDC GT SCH (08:04)
[2021-08-05] MEDS: DOCUSATE SODIUM LIQ 100 MG/10 ML UDC GT SCH ×2 (08:04→16:33)
[2021-08-05] MEDS: PANTOPRAZOLE 40 MG VIAL IV SCH ×2 (08:05→16:33)
[2021-08-05] MEDS: METOPROLOL TARTRATE 25 MG TABLET GT SCH ×2 (08:05→16:33)
[2021-08-05] MEDS: ASCORBIC ACID 500 MG TABLET GT SCH (08:05)
[2021-08-05] MEDS: AMLODIPINE BESYLATE 5 MG TABLET GT SCH (08:05)
[2021-08-05] MEDS: MULTIVIT W/MINERALS 1 TAB TABLET GT SCH (08:05)
[2021-08-05] MEDS: PROSOURCE / PROSTAT (PYXIS) 30 ML UDC GT SCH (08:06)
[2021-08-05] MEDS: CHLORHEXIDINE GLUCONATE 15 ML UDC MM SCH ×2 (08:21→16:33)
[2021-08-05] MEDS: INSULIN GLARGINE, 100 UNIT/ML CARTRIDGE SQ SCH ×2 (08:22→17:00)
[2021-08-05 08:52] LABS: BASOPHILS % (AUTO) 0.2 % (0.0-2.0); EOSINOPHILS % (AUTO) 2.6 % (0.0-6.0); HEMATOCRIT 24 % (33-45); HEMOGLOBIN 7.9 g/dL (11.5-14.8); LYMPHOCYTES # (AUTO) 1.9 K/uL (0.8-4.8); LYMPHOCYTES % (AUTO) 17.1 % (20.0-44.0); MEAN CORPUSCULAR HGB CONC 34 g/dl (31.0-36.0); MEAN CORPUSCULAR VOLUME 97 fL (82-100); MONOCYTES # (AUTO) 0.4 K/uL (0.1-1.30); MONOCYTES % (AUTO) 3.8 % (2.0-12.0); NEUTROPHILS # (AUTO) 8.3 K/uL (1.8-8.9); NEUTROPHILS % (AUTO) 76.3 % (43.0-81.0); PLATELET COUNT (AUTO) 303 K/uL (150-450); RED BLOOD CELL COUNT(AUTO) 2.43 MIL/uL (4.0-5.2); WHITE BLOOD COUNT (AUTO) 10.9 K/uL (4.3-11.0)
[2021-08-05] MEDS: IV NS 0.9% 1,000 ML IV PRN (09:12)
[2021-08-05] MEDS: MEROPENEM 500 MG in IV NS 0.9% 50 ML IV SCH ×2 (09:47→21:58)
[2021-08-05] MEDS: DAKINS QUARTER STRENGTH (0.125%) 480 ML BOTTLE TOP SCH ×2 (09:48→09:49)
[2021-08-05] MEDS: INSULIN REGULAR, HUMAN 100 UNIT/ML 3 ML VIAL SQ PRN (11:36)
--- NOTE | 2021-08-05 18:56 | NUR ---
RN CLOSING NOTES PATIENT RESTING IN BED. REMAINS ON TRACH TO VENT WITH THE FOLLOWING SETTINGS: AC 18, TV 550, FIO2 40%, PEEP 5. TOLERATING SETTINGS WELL. NO SOB NOTED. ON TELE MONITOR WITH CURRENT READING OF SINUS RHYTHM, HR @84. NOTED WITH IV ACCESS ON RIGHT UPPER ARM MIDLINE, INTACT. WITH IVF OF NS @100ML/HR RUNNING. G-TUBE INTACT AND PATENT. GLUCERNA 1.2 @55ML/HR RUNNING, TOLERATED WELL. ASPIRATION PRECAUTIONS AND SAFETY MEASURES MAINTAINED. BED IN LOWEST AND LOCKED POSITION, SR UP, CALL LIGHT PLACED WITHIN EASY REACH. WILL ENDORSE TO NEXT SHIFT FOR CONTINUITY OF CARE.
--- NOTE | 2021-08-05 19:40 | NUR ---
TELE/RN OPENING NOTE RECEIVED PATIENT RESTING IN BED. OBTUNDED AT BASELINE. CONTINUES ON MECHANICAL VENT WITH PATIENT TOLERATING SETTINGS WELL. IV ACCESS TO RIGHT UPPER ARM MIDLINE INTACT AND PATENT. CONTINUES ON IVF NS @ 100ML/HR. CONTINUES ON IV ABX. CONTINUES ON TUBE FEED GLUCERNA 1.2 @ 55ML/HR X 20HRS. NO RESIDUAL NOTED AT THIS TIME. OH CATHETER IN PLACE DRAINING CLEAR, YELLOW URINE TO GRAVITY. DRESSINGS TO BILATERAL FEET CLEAN, DRY AND INTACT. ASPIRATION, FALL AND SAFETY PRECAUTIONS MAINTAINED. WILL CONTINUE TO MONITOR.
[2021-08-05 21:25] VITALS: BP 107/49
[2021-08-06 00:53] VITALS: BP 105/34
[2021-08-06] MEDS: IV NS 0.9% 1,000 ML IV PRN ×2 (01:34→13:23)
[2021-08-06] MEDS: ALBUTEROL FS 2.5 MG/3 ML VIAL.NEB NEB SCH ×4 (01:45→20:31)
[2021-08-06] MEDS: IPRATROPIUM NEB FS 0.5 MG/2.5 ML AMPUL.NEB NEB SCH ×4 (01:45→20:31)
[2021-08-06 04:37] VITALS: BP 101/24
[2021-08-06 06:28] LABS: BASOPHILS % (AUTO) 0.2 % (0.0-2.0); EOSINOPHILS % (AUTO) 4.8 % (0.0-6.0); HEMATOCRIT 21 % (33-45); HEMOGLOBIN 7.2 g/dL (11.5-14.8); LYMPHOCYTES # (AUTO) 1.7 K/uL (0.8-4.8); LYMPHOCYTES % (AUTO) 17.8 % (20.0-44.0); MEAN CORPUSCULAR HGB CONC 34 g/dl (31.0-36.0); MEAN CORPUSCULAR VOLUME 97 fL (82-100); MONOCYTES # (AUTO) 0.4 K/uL (0.1-1.30); MONOCYTES % (AUTO) 4.2 % (2.0-12.0); NEUTROPHILS # (AUTO) 6.8 K/uL (1.8-8.9); PLATELET COUNT (AUTO) 301 K/uL (150-450); WHITE BLOOD COUNT (AUTO) 9.3 K/uL (4.3-11.0)
--- NOTE | 2021-08-06 06:40 | NUR ---
TELE/RN CLOSING NOTE PATIENT CURRENTLY RESTING IN BED. OBTUNDED AT BASELINE. CONTINUES ON MECHANICAL VENT WITH PATIENT TOLERATING SETTINGS WELL. IV ACCESS TO RIGHT UPPER ARM MIDLINE INTACT AND PATENT. CONTINUES ON IVF NS @ 100ML/HR. CONTINUES ON IV ABX. CONTINUES ON TUBE FEED GLUCERNA 1.2 @ 55ML/HR X 20HRS. NO RESIDUAL NOTED AT THIS TIME. OH CATHETER IN PLACE DRAINING CLEAR, YELLOW URINE TO GRAVITY. TOTAL OUTPUT FOR THIS SHIFT IS 1300CC. DRESSINGS TO BILATERAL FEET CLEAN, DRY AND INTACT. ASPIRATION, FALL AND SAFETY PRECAUTIONS MAINTAINED. WILL ENDORSE PLAN OF CARE TO ONCOMING SHIFT.
[2021-08-06 06:52] LABS: BILIRUBIN,TOTAL 0.4 mg/dL (0.2-1.0); CALCIUM, SERUM 8.7 mg/dL (8.5-10.1); CREATININE 1.5 mg/dL (0.6-1.3); POTASSIUM 4.5 mmol/L (3.5-5.1); TOTAL PROTEIN, SERUM 7.1 g/dL (6.4-8.2)
--- NOTE | 2021-08-06 06:57 | NUR ---
TELE/RN CLOSING NOTE PATIENT CURRENTLY SLEEPING IN BED. ALERT AND ORIENTED X 2. ABLE TO MAKE NEEDS KNOWN. DENIES PAIN AT THIS TIME. CONTINUES ON O2 3L VIA NC WITH NO S/SX OF RESPIRATORY DISTRESS NOTED. IV ACCESS TO RIGHT AC #18G INTACT AND PATENT. CONTINUES ON IVF NS @ 75ML/HR. CONTINUES ON IV ABX. CALL LIGHT WITHIN REACH. ASPIRATION, FALL AND SAFETY PRECAUTIONS MAINTAINED. WILL ENDORSE PLAN OF CARE TO ONCOMING SHIFT. Addendum: 08/06/21 at 0659 by TEJINDER SIM RN CONTINUES ON TELE MONITOR WITH CURRENT READING SR WITH BBB.
[2021-08-06] MEDS: BLOOD SUGAR DIAGNOSTIC 1 EACH STRIP VI SCH ×4 (07:00→21:54)
[2021-08-06] MEDS: GLUCERNA 1.2 1,000 ML BOTTLE GT PRN (07:00)
--- NOTE | 2021-08-06 07:30 | NUR ---
ms rn received patient , awake,non verbal,vent dependent patient, bilateral heel wound noted w/ dressing dry and intact,no s/s of pain,kaur to gravity w/ yellowish urine output, g tube intact w/ feeding at55 ml/hour,repositioned for comfort,all needs attended.
[2021-08-06 08:00] VITALS: BP 120/35
[2021-08-06] MEDS: METOPROLOL TARTRATE 25 MG TABLET GT SCH ×2 (09:00→17:00)
[2021-08-06] MEDS: AMLODIPINE BESYLATE 5 MG TABLET GT SCH (09:00)
[2021-08-06 09:28] LABS: HEMOGLOBIN 7.3 g/dL (11.5-14.8)
[2021-08-06] MEDS: FERROUS SULFATE UDC 300 MG/5 ML UDC GT SCH (09:29)
[2021-08-06] MEDS: PANTOPRAZOLE 40 MG VIAL IV SCH ×2 (09:29→17:11)
[2021-08-06] MEDS: CHLORHEXIDINE GLUCONATE 15 ML UDC MM SCH ×2 (09:29→17:11)
[2021-08-06] MEDS: MULTIVIT W/MINERALS 1 TAB TABLET GT SCH (09:29)
[2021-08-06] MEDS: DOCUSATE SODIUM LIQ 100 MG/10 ML UDC GT SCH ×2 (09:29→17:10)
[2021-08-06] MEDS: ASCORBIC ACID 500 MG TABLET GT SCH (09:29)
[2021-08-06] MEDS: PROSOURCE / PROSTAT (PYXIS) 30 ML UDC GT SCH (09:30)
[2021-08-06] MEDS: INSULIN GLARGINE, 100 UNIT/ML CARTRIDGE SQ SCH ×2 (10:35→17:55)
[2021-08-06] MEDS: MEROPENEM 500 MG in IV NS 0.9% 50 ML IV SCH ×2 (10:39→21:54)
[2021-08-06] MEDS: DAKINS QUARTER STRENGTH (0.125%) 480 ML BOTTLE TOP SCH (10:42)
--- NOTE | 2021-08-06 10:43 | NUR ---
WOUND CARE CONSULT: PT SEEN FOR LEFT EAR WHICH PRESENTS WITH HEALED ABRASION, NO DRAINAGE OR ERYTHEMA NOTED. LEFT OPEN TO AIR. DISCUSSED WITH NURSING STAFF AND SURGICAL P.A. ALL SKIN PROTECTION MEASURES IN PLACE. MD IN AGREEMENT WITH PLAN OF CARE.
--- NOTE | 2021-08-06 11:00 | NUR ---
ms rn due med given via g tube,tolerated well.
[2021-08-06] MEDS ORDERED: LIDOCAINE 1%-EPI 1:100,000 20 ML VIAL TP ONE (13:30)
[2021-08-06] MEDS ORDERED: SILVER NITRATE APPLICATOR 1 EA BOX TP ONE (13:30)
[2021-08-06] MEDS: EPOETIN ALFA-EPBX 4,000 UNIT/ML VIAL SQ SCH (15:56)
[2021-08-06 16:00] VITALS: BP 107/23
--- NOTE | 2021-08-06 18:22 | NUR ---
ms rn on bed,all needs attended,no distress noted.
[2021-08-06 20:00] VITALS: BP 123/41
[2021-08-07] MEDS: IV NS 0.9% 1,000 ML IV PRN ×3 (01:04→21:36)
[2021-08-07] MEDS: ALBUTEROL FS 2.5 MG/3 ML VIAL.NEB NEB SCH ×4 (01:48→20:31)
[2021-08-07] MEDS: IPRATROPIUM NEB FS 0.5 MG/2.5 ML AMPUL.NEB NEB SCH ×4 (01:48→20:31)
--- NOTE | 2021-08-07 06:20 | NUR ---
TELE/RN CLOSING NOTE PATIENT CURRENTLY RESTING IN BED. OBTUNDED AT BASELINE. CONTINUES ON MECHANICAL VENT WITH PATIENT TOLERATING SETTINGS WELL. IV ACCESS TO RIGHT UPPER ARM MIDLINE INTACT AND PATENT. CONTINUES ON IVF NS @ 100ML/HR. CONTINUES ON IV ABX. CONTINUES ON TUBE FEED GLUCERNA 1.2 @ 55ML/HR X 20HRS. NO RESIDUAL NOTED AT THIS TIME. OH CATHETER IN PLACE DRAINING CLEAR, YELLOW URINE TO GRAVITY. TOTAL OUTPUT WAS 1200CC THIS SHIFT. DRESSINGS TO BILATERAL FEET CLEAN, DRY AND INTACT. ASPIRATION, FALL AND SAFETY PRECAUTIONS MAINTAINED. WILL ENDORSE PLAN OF CARE TO ONCOMING SHIFT.
[2021-08-07] MEDS: BLOOD SUGAR DIAGNOSTIC 1 EACH STRIP VI SCH ×4 (06:36→21:35)
[2021-08-07] MEDS: GLUCERNA 1.2 1,000 ML BOTTLE GT PRN (06:36)
[2021-08-07 07:00] LABS: ALBUMIN 1.9 g/dL (3.4-5.0); BILIRUBIN,TOTAL 0.3 mg/dL (0.2-1.0); CALCIUM, SERUM 8.4 mg/dL (8.5-10.1); CREATININE 1.4 mg/dL (0.6-1.3); MAGNESIUM 1.9 mg/dL (1.8-2.4); PHOSPHORUS 3.7 mg/dL (2.5-4.9); POTASSIUM 4.7 mmol/L (3.5-5.1); TOTAL PROTEIN, SERUM 6.8 g/dL (6.4-8.2)
--- NOTE | 2021-08-07 07:15 | NUR ---
ARTILLERY MAINTENANCE SUPERVISOR OPENING NOTES RECEIVED PATIENT IN BED LYING AT SEMI-HENNING'S POSITION. OBTUNDED, RESPONSIVE TO DEEP TACTILE AND PAIN STIMULI. PT WITH TRACH CONNECTED TO MECHANICAL VENTILATOR, TOLERATING CURRENT SETTINGS WELL WITH NO ACUTE RESPIRATORY DISTRESS NOTED. ON TELE-MONITOR WITH CURRENT READING OF NSR, HR 90. RIGHT UPPER ARM MIDLINE INTACT WITH IVF NS @ 100ML/HR IN INFUSING WELL. ON GTF OF GLUCERNA 1.2 @ 55ML/HR IN PROGRESS, TOLERATING WELL. OH CATHETER IN PLACE DRAINING CLEAR YELLOW URINE VIA GRAVITY. ASPIRATION, FALL AND SAFETY PRECAUTIONS MAINTAINED: BED IN LOWEST LOCKED POSITION WITH SR UP X3. CALL LIGHT W/I REACH. WILL CONTINUE TO MONITOR PT ACCORDINGLY.
[2021-08-07 08:00] VITALS: BP 120/44
[2021-08-07] MEDS: DOCUSATE SODIUM LIQ 100 MG/10 ML UDC GT SCH ×2 (08:31→17:05)
[2021-08-07] MEDS: AMLODIPINE BESYLATE 5 MG TABLET GT SCH (08:32)
[2021-08-07] MEDS: METOPROLOL TARTRATE 25 MG TABLET GT SCH ×2 (08:32→17:06)
[2021-08-07] MEDS: FERROUS SULFATE UDC 300 MG/5 ML UDC GT SCH (08:32)
[2021-08-07] MEDS: PANTOPRAZOLE 40 MG VIAL IV SCH ×2 (08:33→17:05)
[2021-08-07] MEDS: MULTIVIT W/MINERALS 1 TAB TABLET GT SCH (08:33)
[2021-08-07] MEDS: CHLORHEXIDINE GLUCONATE 15 ML UDC MM SCH ×2 (08:33→17:05)
[2021-08-07] MEDS: ASCORBIC ACID 500 MG TABLET GT SCH (08:33)
[2021-08-07] MEDS: PROSOURCE / PROSTAT (PYXIS) 30 ML UDC GT SCH (08:36)
[2021-08-07] MEDS: INSULIN GLARGINE, 100 UNIT/ML CARTRIDGE SQ SCH ×2 (09:00→17:00)
--- NOTE | 2021-08-07 09:46 | NUR ---
RN NOTES: BS 75 MG/DL. INSULIN <140 AND ON HOLD PER MD ORDER.
[2021-08-07] MEDS: DAKINS QUARTER STRENGTH (0.125%) 480 ML BOTTLE TOP SCH (09:48)
[2021-08-07] MEDS: MEROPENEM 500 MG in IV NS 0.9% 50 ML IV SCH ×2 (10:28→22:22)
[2021-08-07 11:25] LABS: BASOPHILS % (AUTO) 0.4 % (0.0-2.0); EOSINOPHILS % (AUTO) 3.6 % (0.0-6.0); HEMATOCRIT 21 % (33-45); HEMOGLOBIN 7.1 g/dL (11.5-14.8); LYMPHOCYTES % (AUTO) 21.4 % (20.0-44.0); MEAN CORPUSCULAR HGB CONC 34 g/dl (31.0-36.0); MEAN CORPUSCULAR VOLUME 96 fL (82-100); MONOCYTES # (AUTO) 0.4 K/uL (0.1-1.30); NEUTROPHILS # (AUTO) 6.5 K/uL (1.8-8.9); NEUTROPHILS % (AUTO) 70.6 % (43.0-81.0); PLATELET COUNT (AUTO) 341 K/uL (150-450); RED BLOOD CELL COUNT(AUTO) 2.18 MIL/uL (4.0-5.2); WHITE BLOOD COUNT (AUTO) 9.3 K/uL (4.3-11.0)
[2021-08-07 12:00] VITALS: BP 130/44
--- NOTE | 2021-08-07 15:41 | NUR ---
RN NOTES Called [facility] Microbiology Dept, spoked to Ms Keller on when they will release sensitivities to the MDR klebs and MDR proteus, from the foot wound culture to Meropenem. She stated that she will sent it to the system this afternoon. Will f/u.
[2021-08-07 16:00] VITALS: BP 115/80
--- NOTE | 2021-08-07 17:20 | NUR ---
RN NOTES: BS 89 MG/DL., HELD LANTUS 15UNITS. INSULIN <140 AND ON HOLD PER MD ORDER.
[2021-08-07] MEDS: INSULIN REGULAR, HUMAN 100 UNIT/ML 3 ML VIAL SQ PRN (17:23)
--- NOTE | 2021-08-07 18:18 | NUR ---
RN NOTES: CALLED ID OFFICE, LOGGING CONTRACTOR KAUSHIK DOBSON IS NOT AVAILABLE AND SPOKE TO SOCIAL MEDIA MARKETING MANAGER ID MD DR. WAGNER AND RELAYED THAT PATIENT IS RESISTANT TO KLEBSIELA PNEUMONIAE , RESISTANT TO MEROPENEM AND INFORMED DR WAGNER PT CURRENTLY ON IV MEROPENEM Q12 HRS. PER DR DR WAGNER - NOTHING TO DO NOW AND SHE WILL INFORM IVANNA DOBSON AND WILL FOLLOW UP.
--- NOTE | 2021-08-07 18:36 | NUR ---
SNACK STEWARD CLOSING NOTES PATIENT IN BED AWAKE AT THIS TIME. HOB ELEVATED. OBTUNDED, NON-VERBAL, RESPONSIVE TO DEEP TACTILE AND PAIN STIMULI. PT WITH TRACH PORTEX #8 CONNECTED TO MECHANICAL VENTILATOR, TOLERATING CURRENT SETTINGS WELL WITH NO ACUTE RESPIRATORY DISTRESS NOTED. ON TELE-MONITOR WITH CURRENT READING OF NSR, HR 96. CARL MIDLINE INTACT WITH IVF NS @ 100ML/HR INFUSING WELL. ON GTF OF GLUCERNA 1.2 @ 55ML/HR IN PROGRESS, TOLERATING WELL. OH CATHETER IN PLACE DRAINING CLEAR YELLOW URINE VIA GRAVITY, OH CARE DONE. PT TURNED AND REPOSITIONED Q 2HRS AND PRN. ALL NEEDS ANTICIPATED AND MET. ASPIRATION, FALL AND SAFETY PRECAUTIONS MAINTAINED: BED IN LOWEST LOCKED POSITION WITH SR UP X3. CALL LIGHT W/I REACH. WILL ENDORSE NEIL TO TRUCK MECHANIC NURSE.
--- NOTE | 2021-08-07 19:56 | NUR ---
BARBED WIRE MACHINE OPERATOR OPENING NOTES RECEIVED PATIENT IN BED WITH EYES CLOSED. HOB ELEVATED. OBTUNDED, NON-VERBAL, RESPONSIVE TO DEEP TACTILE AND PAIN STIMULI. WITH TRACH PORTEX #8 CONNECTED TO MECHANICAL VENTILATOR. CURRENT SETTINGS: FIO2 40%, VT 550, 18 BPM, PEEP 5. SPO2 100%. NO ACUTE RESPIRATORY DISTRESS NOTED. ON TELE MONITOR READING SINUS RHYTHM AT 100 BPM. HAS RIGHT UPPER ARM MIDLINE WITH NS RUNNING @ 100ML/HR. ON G-TUBE FEEDING GLUCERNA 1.2 RUNNING @ 55ML/HR. HAS OH CATHETER IN PLACE DRAINING CLEAR AND YELLOW URINE VIA GRAVITY. SAFETY PRECAUTIONS IN PLACE. WILL CONTINUE PLAN OF CARE.
[2021-08-07 20:00] VITALS: BP 140/51
[2021-08-07] MEDS: LINEZOLID RTU BAG 600 MG in PREMIX 1 EA IV SCH (21:32)
[2021-08-08] VITALS: BP 140/54
[2021-08-08] MEDS: ALBUTEROL FS 2.5 MG/3 ML VIAL.NEB NEB SCH ×4 (02:58→20:29)
[2021-08-08] MEDS: IPRATROPIUM NEB FS 0.5 MG/2.5 ML AMPUL.NEB NEB SCH ×4 (02:58→20:29)
[2021-08-08] MEDS: MORPHINE SULFATE INJ 2 MG/ML DISP.SYRIN IV PRN (03:10)
--- NOTE | 2021-08-08 03:10 | NUR ---
COMPUTER HELP DESK REPRESENTATIVE NOTES RESOURCE ANALYST REPORTED HR IS GOING UP TO 120+ WHILE BASELINE WAS AROUND 80. MEMBRENO-ZENDEJAS SCALE USED TO ASSESS PAIN. ADMINISTER PRN MORPHINE SULFATE. TOLERATED WELL.
[2021-08-08 04:00] VITALS: BP 137/44
[2021-08-08] MEDS: GLUCERNA 1.2 1,000 ML BOTTLE GT PRN (04:19)
--- NOTE | 2021-08-08 07:30 | NUR ---
ANESTHESIOLOGY TEACHER CLOSING NOTES PATIENT LYING IN BED WITH EYES CLOSED. HOB ELEVATED. OBTUNDED, NON-VERBAL. BILATERAL UPPER AND LOWER EXTREMITIES CONTRACTED. WITH TRACH PORTEX #8 CONNECTED TO MECHANICAL VENTILATOR. CURRENT SETTINGS: FIO2 40%, TV 550, BREATH RATE 18 BPM, PEEP 5. ON TELE MONITOR READING SINUS TACHYCARDIA AT 104 BPM. HAS RIGHT UPPER ARM MIDLINE WITH NS RUNNING @ 100ML/HR. INTACT, PATENT AND FLUSHING. ON G-TUBE FEEDING GLUCERNA 1.2 RUNNING @ 55ML/HR. IRRIGATED. HAS OH CATHETER IN PLACE DRAINING CLEAR AND YELLOW URINE VIA GRAVITY. URINE OUTPUT 1600 ML. ALL NEEDS ATTENDED. KEPT DRY AND COMFORTABLE. WOUND DRESSING DRY AND INTACT. SAFETY MEASURES IN PLACE: BED LOW AND LOCKED, SIDE RAILS UP X3, CALL LIGHT WITHIN REACH. WILL ENDORSE TO AM NURSE FOR CONTINUITY OF CARE.
--- NOTE | 2021-08-08 07:30 | NUR ---
WOODWORKING SHOP HAND OPENING NOTES RECEIVED PATIENT IN BED,ASLEEP AND EASILY AWAKEN BY STIMULI, OBTUNDED AND NON VERBAL. NOTED W/ TRACH PORTEX #8 CONNECTED TO [facility] VENTILATOR. CURRENT SETTINGS: FIO2 40%, TV 550, BREATH RATE 18 BPM, PEEP 5. ON TELE MONITOR : SINUS TACHYCARDIA AT 108 BPM. HAS RIGHT UPPER ARM MIDLINE WITH NS RUNNING @ 100ML/HR. INTACT, PATENT AND INFUSING WELL. ON G-TUBE FEEDING GLUCERNA 1.2 @ 55ML/HR. NOTED W/ FC PATENT AND DRAINING YELLOW COLORED URINE. SAFETY PRECAUTIONARY MEASURES MAINTAINED: BED IN LOWEST AND LOCKED, SIDE RAILS UP X3, CALL BUTTON IN EASY REACH.
[2021-08-08 07:43] LABS: BASOPHILS % (AUTO) 0.2 % (0.0-2.0); EOSINOPHILS % (AUTO) 1.9 % (0.0-6.0); HEMATOCRIT 21 % (33-45); HEMOGLOBIN 7.2 g/dL (11.5-14.8); LYMPHOCYTES # (AUTO) 1.9 K/uL (0.8-4.8); LYMPHOCYTES % (AUTO) 18.5 % (20.0-44.0); MEAN CORPUSCULAR HGB CONC 34 g/dl (31.0-36.0); MEAN CORPUSCULAR VOLUME 97 fL (82-100); MONOCYTES # (AUTO) 0.5 K/uL (0.1-1.30); MONOCYTES % (AUTO) 4.8 % (2.0-12.0); NEUTROPHILS # (AUTO) 7.7 K/uL (1.8-8.9); NEUTROPHILS % (AUTO) 74.6 % (43.0-81.0); PLATELET COUNT (AUTO) 324 K/uL (150-450); RED BLOOD CELL COUNT(AUTO) 2.18 MIL/uL (4.0-5.2); WHITE BLOOD COUNT (AUTO) 10.3 K/uL (4.3-11.0)
[2021-08-08] MEDS: BLOOD SUGAR DIAGNOSTIC 1 EACH STRIP VI SCH ×4 (07:47→22:22)
[2021-08-08 07:56] LABS: ALBUMIN 1.9 g/dL (3.4-5.0); BILIRUBIN,TOTAL 0.4 mg/dL (0.2-1.0); CALCIUM, SERUM 8.7 mg/dL (8.5-10.1); CREATININE 1.5 mg/dL (0.6-1.3); POTASSIUM 4.8 mmol/L (3.5-5.1); TOTAL PROTEIN, SERUM 6.7 g/dL (6.4-8.2)
[2021-08-08] MEDS: CHLORHEXIDINE GLUCONATE 15 ML UDC MM SCH ×2 (08:29→16:19)
[2021-08-08] MEDS: DAKINS QUARTER STRENGTH (0.125%) 480 ML BOTTLE TOP SCH (08:29)
[2021-08-08] MEDS: FERROUS SULFATE UDC 300 MG/5 ML UDC GT SCH (08:29)
[2021-08-08] MEDS: DOCUSATE SODIUM LIQ 100 MG/10 ML UDC GT SCH ×2 (08:30→16:19)
[2021-08-08] MEDS: ASCORBIC ACID 500 MG TABLET GT SCH (08:30)
[2021-08-08] MEDS: LINEZOLID RTU BAG 600 MG in PREMIX 1 EA IV SCH ×2 (08:30→20:44)
[2021-08-08] MEDS: PANTOPRAZOLE 40 MG VIAL IV SCH ×2 (08:30→16:20)
[2021-08-08] MEDS: MULTIVIT W/MINERALS 1 TAB TABLET GT SCH (08:30)
[2021-08-08] MEDS: INSULIN GLARGINE, 100 UNIT/ML CARTRIDGE SQ SCH ×2 (08:56→16:53)
[2021-08-08] MEDS: METOPROLOL TARTRATE 25 MG TABLET GT SCH ×2 (09:13→16:31)
[2021-08-08] MEDS: AMLODIPINE BESYLATE 5 MG TABLET GT SCH (09:13)
[2021-08-08] MEDS: PROSOURCE / PROSTAT (PYXIS) 30 ML UDC GT SCH (09:15)
[2021-08-08] MEDS: IV NS 0.9% 1,000 ML IV PRN ×2 (10:32→20:57)
[2021-08-08] MEDS: MEROPENEM 500 MG in IV NS 0.9% 50 ML IV SCH (10:32)
[2021-08-08] MEDS: INSULIN REGULAR, HUMAN 100 UNIT/ML 3 ML VIAL SQ PRN ×2 (12:32→17:14)
[2021-08-08] MEDS: EPOETIN ALFA-EPBX 4,000 UNIT/ML VIAL SQ SCH (15:26)
--- NOTE | 2021-08-08 17:25 | NUR ---
RECEIVED PATIENT ON VENT SETTINGS OF AC 18, VT 550, FIO2 40%, PEEP 5. HAS A TRACH PORTEX 8 CUFFED. AIRWAY PATENT AND SECURE. SATURATIONS AT 100%. Q2 VENT CHECK, SUCTION PRN. SMALL TO MODERATE THICK, WHITE AND YELLOW SECRETIONS NOTED. AMBU BAG AT BEDSIDE, VENT PLUGGED INTO RED OUTLET. ALARMS SET AND AUDIBLE.
--- NOTE | 2021-08-08 17:55 | NUR ---
RN NOTES CALLED LAB REGARDING MANUFACTURING ENGINEER AUTOMOTIVE OLYA ORDER FOR SENSITIVITIES, PER LAB NEED TO CALL [facility] FOR SENSITIVITIES, CALLED [facility] BUT NO ONE IS ANSWERING. WILL ENDORSE TO NEXT SHIFT.
--- NOTE | 2021-08-08 18:39 | NUR ---
PATIENT EXPERIENCE COORDINATOR CLOSING NOTES: PATIENT IN BED,POSITIONED ON SEMI HENNING'S, NON VERBAL AND OBTUNDED. ON MECHANICAL VENT W/ CURRENT SETTING : AC 18, TV 550,FIO2 40%, PEEP 5, PORTEX #8. ON MACHINE STEMMER: SINUS RHYTHM AT THIS TIME 95 BPM. WITH FC PATENT AND DRAINING CLEAR YELLOW COLORED URINE VIA GRAVITY. ON ENTERAL FEEDING GLUCERNA 55ML/HR. NOTED WITH RIGHT UPPER ARM MIDLINE ACCESS INTACT AND INFUSING IV NS 100ML/HR. SAFETY PRECAUTIONARY MEASURES MAINTAINED: BED IN LOWEST POSITION AND LOCKED. CALL LIGHT IN EASY REACH FOR HELP/ASSISTANCE. WILL ENDORSED TO NEXT SHIFT FOR CONTINUITY OF CARE.
[2021-08-08 20:00] VITALS: BP 132/64
--- NOTE | 2021-08-08 20:00 | NUR ---
LOFTER NOTES RECEIVED ON BED,NON VERBAL,OBTUNDED,ON TRACH TO VENT,SETTINGS TOLERATED WELL,O2 SAT 100%,WITH IVF NS AT 100ML/HR RATE INFUSING VIA IV PUMP ON RIGHT UPPER ARM MIDLINE,GT FEEDING OF GLUCERNA AT 55ML/HR RATE,NO RESIDUAL VOLUME NOTED,HOB ELEVATED FOR ASPIRATION PRECAUTION.OH CATH IN PLACE DRAINING CLEAR YELLOW URINE OUTPUT.CONTRACTED ON BOTH UPPER AND LOWER EXTREMITIES.SACRAL WOUND DRESSING INTACT AND DRY,ALONG WITH RIGHT AND LEFT FOOT ULCER DRESSING INTACT AND DRY.ON SPECIALTY MATTRESS FOR SKIN MANAGEMENT.REPOSITION PER PROTOCOL,WILL CONTINUE TO MONITOR STATUS.
--- NOTE | 2021-08-08 20:00 | NUR ---
HEALTH AND WELLNESS ADVISOR NOTES SR-88 ON TELE MONITOR.
[2021-08-08 22:00] VITALS: BP 132/64
--- NOTE | 2021-08-08 22:00 | NUR ---
DELIVERER OUTSIDE NOTES ACCU-CHECK BLOOD SUGAR CHECK 172,COVERED WITH HUMULIN R 3 UNITS PER SLIDING SCALE.GT FEEDING IN PROGRESS.
[2021-08-08] MEDS: *INSULIN REGULAR(HUMULIN R)HUM 100 UNIT/ML VIAL SQ PRN (22:37)
[2021-08-09] VITALS (7 sets, daily range): BP systolic 118–143; BP diastolic 60–75
[2021-08-09] MEDS: ALBUTEROL FS 2.5 MG/3 ML VIAL.NEB NEB SCH ×4 (02:25→20:40)
[2021-08-09] MEDS: IPRATROPIUM NEB FS 0.5 MG/2.5 ML AMPUL.NEB NEB SCH ×4 (02:25→20:40)
--- NOTE | 2021-08-09 05:30 | NUR ---
LOG ROLLER NOTES ACCU-CHECK BLOOD SUGAR CHECK 134,COVERED WITH 2 UNITS HUMULIN R PER SLIDING SCALE COVERAGE
[2021-08-09] MEDS: GLUCERNA 1.2 1,000 ML BOTTLE GT PRN (05:56)
[2021-08-09] MEDS: BLOOD SUGAR DIAGNOSTIC 1 EACH STRIP VI SCH ×4 (05:56→21:51)
[2021-08-09] MEDS: INSULIN REGULAR, HUMAN 100 UNIT/ML 3 ML VIAL SQ PRN ×2 (05:59→14:52)
--- NOTE | 2021-08-09 06:29 | NUR ---
POULTRY HUSBANDRY WORKER NOTES NO SIGNIFICANT CHANGE IN STATUS,REPOSITION PER PROTOCOL,DRESSING CHANGE DONE ON SACRAL AREA.GT FEEDING TOLERATED WELL.NO N/V/D/ NOTED.VITAL SIGNS WITH IN NORMAL LIMITS.IN NO ACUTE DISTRESS.
[2021-08-09 06:35] LABS: ALBUMIN 1.9 g/dL (3.4-5.0); BILIRUBIN,TOTAL 0.4 mg/dL (0.2-1.0); CALCIUM, SERUM 8.5 mg/dL (8.5-10.1); CREATININE 1.5 mg/dL (0.6-1.3); POTASSIUM 4.7 mmol/L (3.5-5.1); TOTAL PROTEIN, SERUM 6.6 g/dL (6.4-8.2)
--- NOTE | 2021-08-09 07:10 | NUR ---
RIPPER OPERATOR OPENING NOTES RECEIVED PATIENT ON BED,NON VERBAL,OBTUNDED, RESPONSIVE TO TACTILE STIMULI.ON TRACH TO VENT,SETTINGS TOLERATED WELL. ON TELE MONITOR. SR=87 .IVF NS AT 100ML/HR RATE INFUSING VIA IV PUMP ON RIGHT UPPER ARM MIDLINE,GT FEEDING OF GLUCERNA AT 55ML/HR RATE,NO RESIDUAL VOLUME NOTED,HOB ELEVATED FOR ASPIRATION PRECAUTION.OH CATH IN PLACE DRAINING CLEAR YELLOW URINE OUTPUT.CONTRACTED ON BOTH UPPER AND LOWER EXTREMITIES.REPOSITION THE PATIENT FOR COMFORT AND SKIN MANAGEMENT. SAFETY MEASURES IN PLACE. BED LOCKED IN THE LOWEST POSITION. CALL LIGHT IN REACH. WILL CONTINUE TO MONITOR THE PATIENT.
--- NOTE | 2021-08-09 07:43 | NUR ---
RN NOTES RECEIVED CALL FROM LAB FROM [facility] FOR CRITICAL LAB VALUE OF THE HEMOGLOBIN 6.5. DR CASTILLO PRESENT. REQUESTED TO REPEAT THE HEMOGLOBIN BLOOD TEST .IF THE HEMOGLOBIN LOWER THAN 7 , PATIENT WILL HAVE ONE UNIT OF BLOOD TRANSFUSION.
[2021-08-09] MEDS: CHLORHEXIDINE GLUCONATE 15 ML UDC MM SCH ×2 (08:31→16:28)
[2021-08-09] MEDS: FERROUS SULFATE UDC 300 MG/5 ML UDC GT SCH (08:31)
[2021-08-09] MEDS: AMLODIPINE BESYLATE 5 MG TABLET GT SCH (08:32)
[2021-08-09] MEDS: ASCORBIC ACID 500 MG TABLET GT SCH (08:32)
[2021-08-09] MEDS: PANTOPRAZOLE 40 MG VIAL IV SCH ×2 (08:32→16:28)
[2021-08-09] MEDS: DOCUSATE SODIUM LIQ 100 MG/10 ML UDC GT SCH ×2 (08:32→16:29)
[2021-08-09] MEDS: METOPROLOL TARTRATE 25 MG TABLET GT SCH ×2 (08:32→16:31)
[2021-08-09] MEDS: MULTIVIT W/MINERALS 1 TAB TABLET GT SCH (08:32)
[2021-08-09] MEDS: PROSOURCE / PROSTAT (PYXIS) 30 ML UDC GT SCH (08:35)
[2021-08-09] MEDS: DAKINS QUARTER STRENGTH (0.125%) 480 ML BOTTLE TOP SCH (08:36)
[2021-08-09] MEDS: LINEZOLID RTU BAG 600 MG in PREMIX 1 EA IV SCH (08:37)
[2021-08-09 08:43] LABS: BASOPHILS % (AUTO) 0.3 % (0.0-2.0); EOSINOPHILS % (AUTO) 4.5 % (0.0-6.0); HEMATOCRIT 21 % (33-45); LYMPHOCYTES # (AUTO) 1.4 K/uL (0.8-4.8); LYMPHOCYTES % (AUTO) 18.9 % (20.0-44.0); MEAN CORPUSCULAR HGB CONC 33 g/dl (31.0-36.0); MEAN CORPUSCULAR VOLUME 97 fL (82-100); MONOCYTES # (AUTO) 0.4 K/uL (0.1-1.30); MONOCYTES % (AUTO) 5.5 % (2.0-12.0); NEUTROPHILS # (AUTO) 5.4 K/uL (1.8-8.9); NEUTROPHILS % (AUTO) 70.8 % (43.0-81.0); PLATELET COUNT (AUTO) 315 K/uL (150-450); RED BLOOD CELL COUNT(AUTO) 2.12 MIL/uL (4.0-5.2); WHITE BLOOD COUNT (AUTO) 7.6 K/uL (4.3-11.0)
[2021-08-09] MEDS: INSULIN GLARGINE, 100 UNIT/ML CARTRIDGE SQ SCH ×2 (09:05→17:00)
--- NOTE | 2021-08-09 10:00 | NUR ---
RN NOTES DOUBLE CHECKED WITH THE PHARMACY FOR THE REGULAR INSULIN SHOULD BE GIVEN , SINCE PATIENT HAD 2 DIFFERENT INSULIN IN HER MAR. ONE REGULAR INSULIN AND THE OTHER REGULAR AND NOVOLIN ONE. KISHOR STATED BOTH ARE THE SAME.
[2021-08-09 10:54] LABS: HEMOGLOBIN 6.9 g/dL (11.5-14.8)
[2021-08-09] MEDS: IV NS 0.9% 1,000 ML IV PRN (13:11)
--- NOTE | 2021-08-09 17:04 | NUR ---
RN NOTES HELD LANTUS FOR 1700 AND REGULAR INSULIN FOR 1700 FOR BLOOD SUGAR 107
[2021-08-09] MEDS: CEFTRIAXONE 1 G in IV D5W 50 ML IV SCH (17:06)
--- NOTE | 2021-08-09 18:30 | NUR ---
RN NOTES NOTED RIGHT UPPER ARM OPEN SKIN AND BLISTER. IT IS FROM PREVIOUS MID LINE TAPE .WOUND CONSULT ORDERED.
--- NOTE | 2021-08-09 19:30 | NUR ---
AGED OR DISABLED CARE WORKER NOTES SR-88 ON TELE MONITOR.RECEIVED ON BED NON VERBAL,OBTUNDED,ON TRACH TO VENT,SETTINGS TOLERATED WELL.GT FEEDING OF GLUCERNA AT 55ML/HR RATE IN PROGRESS VIA FEEDING PUMP,NOTED 5 ML RESIDUAL VOLUME.CONTRACTED ON BOTH UPPER AND LOWER EXTREMITIES,MIDLINE LEFT UPPER ARM INTACT AND PATENT,NS AT 100ML/HR RATE INFUSING WELL VIA IV [PUMP.DRESSING TO BILATERAL FOOT AND SACRAL AREA INTACT AND DRY.KCI MATTRESS IN USE FOR SKIN MANAGEMENT.REPOSITION PER PROTOCOL. H/H 6.9 21,WILL TRANSFUSE 1 UNIT OF PRBC ORDERED.WILL CONTINUE TO MONITOR STATUS.
--- NOTE | 2021-08-09 19:30 | NUR ---
HEALTHCARE MANAGER CLOSING NOTES PATIENT ON BED,NON VERBAL,OBTUNDED, RESPONSIVE TO TACTILE STIMULI.ON TRACH TO VENT,SETTINGS TOLERATED WELL. ON TELE MONITOR. SR=80 .IVF NS AT 100ML/HR RATE INFUSING VIA IV PUMP ON LEFT UPPER ARM MIDLINE.GT FEEDING OF GLUCERNA AT 55ML/HR RATE,NO RESIDUAL VOLUME NOTED,HOB ELEVATED FOR ASPIRATION PRECAUTION.OH CATH IN PLACE DRAINING CLEAR YELLOW URINE OUTPUT OF 700 ML.CONTRACTED ON BOTH UPPER AND LOWER EXTREMITIES.REPOSITION THE PATIENT FOR COMFORT AND SKIN MANAGEMENT. ALL DUE MEDS AND TREATMENTS GIVEN ORDERED. PATIENT HEMOGLOBIN LEVEL WAS LOW. BLOOD TYPE AND SCREEN AND TRANSFUSION ORDERED. NOT READY TILL TIME OF LEAVING. SAFETY MEASURES IN PLACE. BED LOCKED IN THE LOWEST POSITION. CALL LIGHT IN REACH. WILL ENDORSE FOR NEIL..
--- NOTE | 2021-08-09 21:11 | NUR ---
MEDICAL ENGINEER NOTES 1 UNIT OF PRBC 300ML STARTED AT 100ML/HR RATE,INFUSING VIA IV PUMP.VITAL SIGNS WITH IN NORMAL LIMITS.WILL MONITOR FOR ADVERSE REACTION.
--- NOTE | 2021-08-09 22:00 | NUR ---
SUPERVISOR FACEPIECE LINE NOTES ACCU-CHECK BLOOD SUGAR CHECK 109,NO INSULIN COVERAGE.GT FEEDING IN PROGRESS.
[2021-08-10] VITALS: BP 121/79
--- NOTE | 2021-08-10 | NUR ---
GROUP WORK PROGRAM DIRECTOR NOTES 1 UNIT OF PRBC COMPLETED,NO ADVERSE REACTIONS NOTED.NA FLUSHING ON GOING.VITAL SIGNS WITH IN NORMAL LIMITS.
[2021-08-10] MEDS: ALBUTEROL FS 2.5 MG/3 ML VIAL.NEB NEB SCH ×4 (02:01→20:18)
[2021-08-10] MEDS: IPRATROPIUM NEB FS 0.5 MG/2.5 ML AMPUL.NEB NEB SCH ×4 (02:02→20:18)
[2021-08-10 04:00] VITALS: BP 141/50
[2021-08-10] MEDS: IV NS 0.9% 1,000 ML IV PRN ×2 (04:05→14:18)
[2021-08-10] MEDS: GLUCERNA 1.2 1,000 ML BOTTLE GT PRN (05:16)
--- NOTE | 2021-08-10 05:30 | NUR ---
EMBEDDED LINUX DEVELOPER NOTES ACCU-CHECK BLOOD SUGAR CHECK 82,NO INSULIN COVERAGE.
[2021-08-10] MEDS: BLOOD SUGAR DIAGNOSTIC 1 EACH STRIP VI SCH ×4 (06:07→22:00)
[2021-08-10 06:19] LABS: BASOPHILS % (AUTO) 0.4 % (0.0-2.0); EOSINOPHILS % (AUTO) 6.4 % (0.0-6.0); HEMATOCRIT 27 % (33-45); HEMOGLOBIN 9.1 g/dL (11.5-14.8); LYMPHOCYTES # (AUTO) 1.3 K/uL (0.8-4.8); LYMPHOCYTES % (AUTO) 19.2 % (20.0-44.0); MEAN CORPUSCULAR HGB CONC 34 g/dl (31.0-36.0); MEAN CORPUSCULAR VOLUME 95 fL (82-100); MONOCYTES # (AUTO) 0.3 K/uL (0.1-1.30); MONOCYTES % (AUTO) 4.3 % (2.0-12.0); NEUTROPHILS # (AUTO) 4.9 K/uL (1.8-8.9); NEUTROPHILS % (AUTO) 69.7 % (43.0-81.0); PLATELET COUNT (AUTO) 368 K/uL (150-450); RED BLOOD CELL COUNT(AUTO) 2.82 MIL/uL (4.0-5.2)
--- NOTE | 2021-08-10 06:28 | NUR ---
SCALE TANK OPERATOR NOTES FAIRLY RESTED AT NIGHT,NO SOB NOTED,TRACH TO VENT TOLERATED WELL.DRESSING TO BILATERAL FOOT INTACT AND DRY.GT FEEDING TOLERATED WELL,NO N/V/D/ NOTED.IN NO ACUTE DISTRESS
--- NOTE | 2021-08-10 07:07 | NUR ---
PRINCIPAL TECHNOLOGIST OPENING NOTES RECEIVED PATIENT AWAKE IN BED IN NO ACUTE SIGNS OF DISTRESS. HOB ELEVATED. OBTUNDED, NON-VERBAL, RESPONSIVE TO DEEP TACTILE AND PAIN STIMULI. PT WITH TRACH ATTACHED TO MECHANICAL VENTILATOR @ PRESCRIBED SETTINGS, TOLERATING CURRENT SETTINGS WELL WITH NO SOB NOTED. ON TELE-MONITOR WITH CURRENT READING OF NSR, HR 90. DANAE MIDLINE 18G INTACT WITH IVF NS @ 100ML/HR IN INFUSING WELL. ON GTF OF GLUCERNA 1.2 @ 55ML/HR IN PROGRESS, TOLERATING WELL. OH CATHETER IN PLACE DRAINING CLEAR YELLOW URINE VIA GRAVITY. ASPIRATION, FALL AND SAFETY PRECAUTIONS MAINTAINED: BED IN LOWEST LOCKED POSITION WITH SR UP X3. CALL LIGHT W/I REACH. WILL CONTINUE TO MONITOR PT ACCORDINGLY.
[2021-08-10 07:22] LABS: BILIRUBIN,TOTAL 0.4 mg/dL (0.2-1.0); CALCIUM, SERUM 8.3 mg/dL (8.5-10.1); CREATININE 1.4 mg/dL (0.6-1.3); POTASSIUM 4.9 mmol/L (3.5-5.1); TOTAL PROTEIN, SERUM 6.8 g/dL (6.4-8.2)
--- NOTE | 2021-08-10 07:55 | NUR ---
WOUND CARE CONSULT: PT SEEN FOR RT UPPER ARM SKIN TEAR AND INTACT BLISTER. RECOMMENDATIONS MADE FOR WOUND CARE AND SKIN PROTECTION DISCUSSED WITH NURSING STAFF AND SURGICAL P.ACharles MAXWELL IN AGREEMEMENT WITH PLAN OF CARE.
[2021-08-10 08:00] VITALS: BP 136/68
[2021-08-10] MEDS: CHLORHEXIDINE GLUCONATE 15 ML UDC MM SCH ×2 (08:06→16:29)
[2021-08-10] MEDS: PANTOPRAZOLE 40 MG VIAL IV SCH ×2 (08:06→16:28)
[2021-08-10] MEDS: ASCORBIC ACID 500 MG TABLET GT SCH (08:07)
[2021-08-10] MEDS: MULTIVIT W/MINERALS 1 TAB TABLET GT SCH (08:07)
[2021-08-10] MEDS: DOCUSATE SODIUM LIQ 100 MG/10 ML UDC GT SCH ×2 (08:07→16:29)
[2021-08-10] MEDS: FERROUS SULFATE UDC 300 MG/5 ML UDC GT SCH (08:10)
[2021-08-10] MEDS: PROSOURCE / PROSTAT (PYXIS) 30 ML UDC GT SCH (08:13)
[2021-08-10] MEDS: INSULIN GLARGINE, 100 UNIT/ML CARTRIDGE SQ SCH ×2 (09:00→17:00)
[2021-08-10] MEDS: METOPROLOL TARTRATE 25 MG TABLET GT SCH ×2 (09:04→16:29)
[2021-08-10] MEDS: AMLODIPINE BESYLATE 5 MG TABLET GT SCH (09:04)
[2021-08-10] MEDS: DAKINS QUARTER STRENGTH (0.125%) 480 ML BOTTLE TOP SCH (09:05)
--- NOTE | 2021-08-10 09:08 | NUR ---
RN NOTES HELD LANTUS THIS MORNING, BS WAS 109 MG/DL.
[2021-08-10] MEDS: INSULIN REGULAR, HUMAN 100 UNIT/ML 3 ML VIAL SQ PRN ×2 (11:41→17:26)
[2021-08-10 12:00] VITALS: BP 122/63
[2021-08-10] MEDS: EPOETIN ALFA-EPBX 4,000 UNIT/ML VIAL SQ SCH (14:53)
--- NOTE | 2021-08-10 15:06 | NUR ---
RN NOTES ADMINISTERED RETACRIT 4,000 UNITS SQ ON CARL PER MD ORDER.
[2021-08-10] MEDS: CEFTRIAXONE 1 G in IV D5W 50 ML IV SCH (16:29)
--- NOTE | 2021-08-10 18:41 | NUR ---
DOCUMENT CONTROL COORDINATOR CLOSING NOTES PATIENT IN BED AWAKE AND LYING AT MODERATE HIGH BACKREST POSITION. OBTUNDED, NON-VERBAL, RESPONSIVE TO DEEP TACTILE AND PAIN STIMULI. PT WITH TRACH PORTEX #8 CONNECTED TO MECHANICAL VENTILATOR, TOLERATING CURRENT SETTINGS WELL WITH NO ACUTE RESPIRATORY DISTRESS NOTED. ON TELE-MONITOR WITH CURRENT READING OF NSR, HR OM THE 80'S. DANAE MIDLINE INTACT WITH IVF NS @ 100ML/HR INFUSING WELL. ON GTF OF GLUCERNA 1.2 @ 55ML/HR IN PROGRESS, TOLERATING WELL. OH CATHETER IN PLACE DRAINING CLEAR YELLOW URINE VIA GRAVITY, OH CARE DONE. PT TURNED AND REPOSITIONED Q 2HRS AND PRN. ALL NEEDS ANTICIPATED AND MET. ASPIRATION, FALL AND SAFETY PRECAUTIONS MAINTAINED: BED IN LOWEST LOCKED POSITION WITH SR UP X3. CALL LIGHT W/I REACH. WILL ENDORSE NEIL TO MOBILE HEAVY EQUIPMENT OPERATOR NURSE.
--- NOTE | 2021-08-10 19:15 | NUR ---
DIRECTORY CLERK OPENING NOTES: RECEIVED PATIENT IN BED, AWAKE, NON VERBAL, OBTUNDED. NO S/S OF DISTRESS NOTED. NOT IN PAIN. BED ALARM ON. BED IN LOWEST AND LOCKED POSITION. HOB ELEVATED AT ALL TIMES. WITH GT FEEDING RUNNING AT 55ML/HOUR FOR 20 HOURS ONLY. WITH OH CATHETER INTACT. WITH TRACH INTACT, DRESSING IS CLEAN, DRY AND INTACT CONNECTED TO MECHANICAL VENT.
[2021-08-10 20:00] VITALS: BP 109/71
[2021-08-10] MEDS: *INSULIN REGULAR(HUMULIN R)HUM 100 UNIT/ML VIAL SQ PRN (22:27)
--- NOTE | 2021-08-10 22:28 | NUR ---
blood sugar checked= 115, no insulin given.
[2021-08-11] VITALS: BP 128/46
[2021-08-11] MEDS: ALBUTEROL FS 2.5 MG/3 ML VIAL.NEB NEB SCH ×4 (02:02→19:42)
[2021-08-11] MEDS: IPRATROPIUM NEB FS 0.5 MG/2.5 ML AMPUL.NEB NEB SCH ×4 (02:03→19:42)
[2021-08-11 04:00] VITALS: BP 113/58
[2021-08-11] MEDS: IV NS 0.9% 1,000 ML IV PRN ×3 (05:46→22:36)
[2021-08-11] MEDS: GLUCERNA 1.2 1,000 ML BOTTLE GT PRN (05:47)
[2021-08-11] MEDS: INSULIN REGULAR, HUMAN 100 UNIT/ML 3 ML VIAL SQ PRN (06:35)
--- NOTE | 2021-08-11 06:35 | NUR ---
blood sugar kstwipt=669, no insulin given.
[2021-08-11] MEDS: BLOOD SUGAR DIAGNOSTIC 1 EACH STRIP VI SCH ×4 (06:38→22:00)
[2021-08-11 07:28] LABS: BASOPHILS % (AUTO) 0.4 % (0.0-2.0); EOSINOPHILS % (AUTO) 4.7 % (0.0-6.0); HEMATOCRIT 24 % (33-45); HEMOGLOBIN 8.2 g/dL (11.5-14.8); LYMPHOCYTES # (AUTO) 1.6 K/uL (0.8-4.8); LYMPHOCYTES % (AUTO) 22.3 % (20.0-44.0); MEAN CORPUSCULAR HGB CONC 34 g/dl (31.0-36.0); MEAN CORPUSCULAR VOLUME 94 fL (82-100); MONOCYTES # (AUTO) 0.3 K/uL (0.1-1.30); MONOCYTES % (AUTO) 4.1 % (2.0-12.0); NEUTROPHILS # (AUTO) 4.9 K/uL (1.8-8.9); NEUTROPHILS % (AUTO) 68.5 % (43.0-81.0); PLATELET COUNT (AUTO) 381 K/uL (150-450); RED BLOOD CELL COUNT(AUTO) 2.56 MIL/uL (4.0-5.2); WHITE BLOOD COUNT (AUTO) 7.1 K/uL (4.3-11.0)
[2021-08-11 07:57] VITALS: BP 137/79
--- NOTE | 2021-08-11 08:00 | NUR ---
RN OPENING NOTE PATIENT RECEIVED IN AIR MATTRESS BED, NON VERBAL. ABLE TO RESPONDS PHYSICAL STIMULI. IN NO ACUTE DISTRESS NOTED. RESPIRATORY EVEN AND UNLABORED ON TRACH WITH VENTILATOR. SKIN IS WARM TO TOUCH, KEEP CLEAN/DRY. TUBE FEEDING, AND OH CONNECTING TO URINE BAG. KEPT ELEVATED HOB FOR ENSURE AIRWAY AND ASPIRATION PRECAUTION, ALSO LOWEST POSITION OF THE BED, S/R UP X 3, BED ALARM IS ON AT ALL THE TIMES. ALL SAFETY PRECAUTION APPLIED. CALL LIGHT WITHIN REACH, WILL CONTINUE TO MONITOR.
[2021-08-11 08:08] LABS: ALBUMIN 1.9 g/dL (3.4-5.0); BILIRUBIN,TOTAL 0.3 mg/dL (0.2-1.0); CALCIUM, SERUM 8.3 mg/dL (8.5-10.1); CREATININE 1.4 mg/dL (0.6-1.3); POTASSIUM 4.6 mmol/L (3.5-5.1); TOTAL PROTEIN, SERUM 6.6 g/dL (6.4-8.2)
[2021-08-11] MEDS: INSULIN GLARGINE, 100 UNIT/ML CARTRIDGE SQ SCH ×2 (09:00→17:00)
--- NOTE | 2021-08-11 09:00 | NUR ---
PATIENT BS 132, PARAMETER SAYS HOLD LANTUS IF BS < 140. HELD LANTUS 15 U.
[2021-08-11] MEDS: CHLORHEXIDINE GLUCONATE 15 ML UDC MM SCH ×2 (09:09→17:38)
[2021-08-11] MEDS: PANTOPRAZOLE 40 MG VIAL IV SCH ×2 (09:09→17:39)
[2021-08-11] MEDS: DOCUSATE SODIUM LIQ 100 MG/10 ML UDC GT SCH ×2 (09:09→17:38)
[2021-08-11] MEDS: FERROUS SULFATE UDC 300 MG/5 ML UDC GT SCH (09:09)
[2021-08-11] MEDS: MULTIVIT W/MINERALS 1 TAB TABLET GT SCH (09:10)
[2021-08-11] MEDS: AMLODIPINE BESYLATE 5 MG TABLET GT SCH (09:10)
[2021-08-11] MEDS: ASCORBIC ACID 500 MG TABLET GT SCH (09:10)
[2021-08-11] MEDS: METOPROLOL TARTRATE 25 MG TABLET GT SCH ×2 (09:10→17:40)
[2021-08-11] MEDS: DAKINS QUARTER STRENGTH (0.125%) 480 ML BOTTLE TOP SCH (09:19)
[2021-08-11] MEDS: PROSOURCE / PROSTAT (PYXIS) 30 ML UDC GT SCH (09:19)
[2021-08-11 15:36] VITALS: BP 153/62
--- NOTE | 2021-08-11 17:17 | NUR ---
BS < 140, WILL HOLD LANTUS 15 UNITS.
[2021-08-11] MEDS: CEFTRIAXONE 1 G in IV D5W 50 ML IV SCH (18:01)
--- NOTE | 2021-08-11 18:36 | NUR ---
RN CLOSING NOTE PATIENT IN BED, IN NO ACUTE DISTRESS OBSERVED. SKIN IS WARM TO TOUCH KEEP CLEAN/DRY. WOUND DRESSING CHANGED. RESPIRATORY EVEN AND UNLABORED ON TRACH WITH VENTILATOR. NO RESIDUAL NO ADVERSE REACTION NOTED FROM ABX. KEPT ELEVATED HOB FOR ENSURE AIRWAY AND ASPIRATION PRECAUTION, AND LOWEST POSITION OF THE BED FOR SAFETY. CALL LIGHT WITHIN REACH, WILL ENDORSE TO TYPEWRITER REPAIRER. Addendum: 08/11/21 at 1839 by FREDIS QUIGLEY RN ERROR
--- NOTE | 2021-08-11 18:39 | NUR ---
RN CLOSING NOTE PATIENT IN BED, IN NO ACUTE DISTRESS OBSERVED. SKIN IS WARM TO TOUCH KEEP CLEAN/DRY. WOUND DRESSING CHANGED. RESPIRATORY EVEN AND UNLABORED ON TRACH WITH VENTILATOR. NO RESIDUAL FROM G TUBE, AND NO ADVERSE REACTION NOTED FROM ABX. KEPT ELEVATED HOB FOR ENSURE AIRWAY AND ASPIRATION PRECAUTION, AND LOWEST POSITION OF THE BED FOR SAFETY. CALL LIGHT WITHIN REACH, WILL ENDORSE TO TOLL BOOTH OPERATOR.
--- NOTE | 2021-08-11 19:10 | NUR ---
MAINTENANCE REPAIRER OPENING NOTES: RECEIVED PATIENT IN BED,AWAKE, NON VERBAL, OBTUNDED, NO S/S OF DISTRESS NOTED. NOT IN PAIN. BED ALARM ON. BED IN LOWEST AND LOCKED POSITION. HOB ELEVATED AT ALL TIMES. WITH TRACH DRESSING IS CLEAN, DRY AND INTACT CONNECTED TO MECHANICAL VENT. WITH GT FEEDING RUNNING AT 55ML/HOUR. WITH OH CATHETER INTACT DRAINING CLEAR YELLOW URINE.
[2021-08-11 20:00] VITALS: BP 143/58
[2021-08-11] MEDS: *INSULIN REGULAR(HUMULIN R)HUM 100 UNIT/ML VIAL SQ PRN (22:29)
--- NOTE | 2021-08-11 22:31 | NUR ---
blood sugar checked= 127, no insulin given.
--- NOTE | 2021-08-11 22:44 | NUR ---
FEEDING RESIDUAL CHECKED= 60ML, FLUSHED WITH WATER. FEEDING HELD.
[2021-08-12] VITALS: BP 126/48
--- NOTE | 2021-08-12 00:54 | NUR ---
Feeding residual checked= 30ml, feeding resumed.
[2021-08-12] MEDS: IPRATROPIUM NEB FS 0.5 MG/2.5 ML AMPUL.NEB NEB SCH ×4 (01:51→19:45)
[2021-08-12] MEDS: ALBUTEROL FS 2.5 MG/3 ML VIAL.NEB NEB SCH ×4 (01:51→19:45)
--- NOTE | 2021-08-12 02:00 | NUR ---
feeding stopped. GT flushed with water and clamped.
[2021-08-12 04:00] VITALS: BP 138/53
--- NOTE | 2021-08-12 06:19 | NUR ---
FLIGHT CREW TIME CLERK CLOSING NOTES: PATIENT IN BED,NO S/S OF DISTRESS NOTED. NOT IN PAIN. BED ALARM ON. BED IN LOWEST AND LOCKED POSITION. HOB ELEVATED AT ALL TIMES. FEEDING RESIDUAL CHECKED=NONE, FEEDING RESUMED AT 55ML/HOUR. G-TUBE SITE DRESSING CHANGED. BILATERAL FEET ULCERS TREATMENT DONE AND WOUND DRESSING CHANGED. HEELS OFFLOADED. TURNED AND REPOSITIONED Q 2HOURS. SINUS 95 ON MONITOR.
[2021-08-12 06:23] LABS: BASOPHILS % (AUTO) 0.4 % (0.0-2.0); EOSINOPHILS % (AUTO) 4.2 % (0.0-6.0); HEMATOCRIT 27 % (33-45); LYMPHOCYTES # (AUTO) 1.7 K/uL (0.8-4.8); LYMPHOCYTES % (AUTO) 20.3 % (20.0-44.0); MEAN CORPUSCULAR HGB CONC 34 g/dl (31.0-36.0); MEAN CORPUSCULAR VOLUME 96 fL (82-100); MONOCYTES # (AUTO) 0.4 K/uL (0.1-1.30); MONOCYTES % (AUTO) 4.4 % (2.0-12.0); NEUTROPHILS # (AUTO) 5.8 K/uL (1.8-8.9); NEUTROPHILS % (AUTO) 70.7 % (43.0-81.0); PLATELET COUNT (AUTO) 372 K/uL (150-450); RED BLOOD CELL COUNT(AUTO) 2.82 MIL/uL (4.0-5.2); WHITE BLOOD COUNT (AUTO) 8.2 K/uL (4.3-11.0)
[2021-08-12 06:26] LABS: ALBUMIN 1.9 g/dL (3.4-5.0); BILIRUBIN,TOTAL 0.3 mg/dL (0.2-1.0); CALCIUM, SERUM 8.3 mg/dL (8.5-10.1); CREATININE 1.3 mg/dL (0.6-1.3); POTASSIUM 4.7 mmol/L (3.5-5.1); TOTAL PROTEIN, SERUM 6.5 g/dL (6.4-8.2)
[2021-08-12] MEDS: BLOOD SUGAR DIAGNOSTIC 1 EACH STRIP VI SCH ×4 (06:39→21:54)
[2021-08-12] MEDS: INSULIN REGULAR, HUMAN 100 UNIT/ML 3 ML VIAL SQ PRN ×3 (06:39→16:55)
--- NOTE | 2021-08-12 07:13 | NUR ---
MEAT PROCESSOR OPENING NOTES RECEIVED PATIENT IN BED AWAKE, NON-VERBAL AND OBTUNDED. PT WITH TRACH PORTEX #8 CONNECTED TO MECHANICAL VENTILATOR @ PRESCRIBED SETTINGS, TOLERATING SETTINGS WELL WITH NO ACUTE SIGNS OF RESPIRATORY DISTRESS NOTED. ON TELE-MONITOR WITH CURRENT READING OF NSR, HR 91. DANAE MIDLINE 18G INTACT WITH IVF NS @ 100ML/HR IN INFUSING WELL. G-TUBE IN PLACE WITH GTF OF GLUCERNA 1.2 @ 55ML/HR IN PROGRESS, TOLERATING WELL. PT WITH OH CATHETER DRAINING CLEAR YELLOW URINE VIA GRAVITY. ASPIRATION, FALL AND SAFETY PRECAUTIONS MAINTAINED: BED IN LOWEST LOCKED POSITION WITH SR UP X3. HOB ELEVATED, CALL LIGHT W/I REACH. WILL CONTINUE TO MONITOR PT
[2021-08-12 08:00] VITALS: BP 154/62
[2021-08-12] MEDS: INSULIN GLARGINE, 100 UNIT/ML CARTRIDGE SQ SCH ×2 (09:00→16:55)
[2021-08-12] MEDS: IV NS 0.9% 1,000 ML IV PRN ×2 (09:01→19:25)
[2021-08-12] MEDS: FERROUS SULFATE UDC 300 MG/5 ML UDC GT SCH (09:03)
[2021-08-12] MEDS: DOCUSATE SODIUM LIQ 100 MG/10 ML UDC GT SCH ×2 (09:03→16:46)
[2021-08-12] MEDS: PANTOPRAZOLE 40 MG VIAL IV SCH ×2 (09:03→16:46)
[2021-08-12] MEDS: CHLORHEXIDINE GLUCONATE 15 ML UDC MM SCH ×2 (09:03→16:46)
[2021-08-12] MEDS: MULTIVIT W/MINERALS 1 TAB TABLET GT SCH (09:04)
[2021-08-12] MEDS: AMLODIPINE BESYLATE 5 MG TABLET GT SCH (09:04)
[2021-08-12] MEDS: METOPROLOL TARTRATE 25 MG TABLET GT SCH ×2 (09:04→16:52)
[2021-08-12] MEDS: ASCORBIC ACID 500 MG TABLET GT SCH (09:06)
[2021-08-12] MEDS: DAKINS QUARTER STRENGTH (0.125%) 480 ML BOTTLE TOP SCH (09:08)
--- NOTE | 2021-08-12 09:13 | NUR ---
RN NOTES LANTUS 15 UNITS NOT ADMINISTER THIS MORNING, BS WAS 126 MG/DL. MD ORDER: IF BS <140, HOLD LANTUS.
[2021-08-12] MEDS: PROSOURCE / PROSTAT (PYXIS) 30 ML UDC GT SCH (09:15)
[2021-08-12 16:00] VITALS: BP 126/63
[2021-08-12] MEDS: CEFTRIAXONE 1 G in IV D5W 50 ML IV SCH (16:47)
--- NOTE | 2021-08-12 16:56 | NUR ---
RN NOTES LANTUS 15 UNITS NOT ADMINISTER THIS AFTERNOON, BS WAS 105 MG/DL. MD ORDER: IF BS <140 MG/DL, HOLD LANTUS.
--- NOTE | 2021-08-12 18:42 | NUR ---
VP INTEGRITY CLOSING NOTES PATIENT IN BED AWAKE AT THIS TIME WITH TRACH PORTEX #8 CONNECTED TO MECHANICAL VENTILATOR, TOLERATING CURRENT SETTINGS WELL W/ NO ACUTE RESPIRATORY DISTRESS NOTED. PT IS OBTUNDED, NON-VERBAL, RESPONSIVE TO DEEP TACTILE AND PAIN STIMULI. ON TELE-MONITOR SHOWS READING OF NSR, HR 80 AT THIS TIME. DANAE MIDLINE INTACT WITH IVF NS @ 100ML/HR INFUSING WELL. ON GTF OF GLUCERNA 1.2 @ 55ML/HR IN PROGRESS, TOLERATING WELL. OH CATHETER IN PLACE DRAINING SLIGHTLY CLOUDY YELLOW URINE VIA GRAVITY, OH CARE DONE. PT TURNED AND REPOSITIONED Q 2HRS AND PRN. ALL NEEDS PROVIDED WELL AND KEPT PT COMFORTABLE. ASPIRATION, FALL AND SAFETY PRECAUTIONS MAINTAINED: BED IN LOWEST LOCKED POSITION WITH SR UP X3. CALL LIGHT W/I REACH. WILL ENDORSE NEIL TO OPTOMETRIST PRESIDENT/PRACTICE OWNER NURSE.
--- NOTE | 2021-08-12 19:26 | NUR ---
LOSS PREVENTION REPRESENTATIVE OPENING NOTE RECEIVED PATIENT IN BED, OBTUNDED. EYES OPEN. NO S/S OF APPARENT DISTRESS-- VENT DEPENDENT. BREATHING EVEN AND UNLABORED. NOT EXHIBITING PAIN VIA FLACC. TELE MONITOR READING SR 85 BPM. OH CATH NOTED IN PLACE. IV NS RUNNING @100MLS/HR. G-TUBE FEEDING RUNNING GLUCERNA @55 MLS/HR. SAFETY IN PLACE. ISOLATION IN PLACE. WILL CONTINUE WITH PATIENT'S PLAN OF CARE.
[2021-08-12 20:00] VITALS: BP 147/54
[2021-08-12] MEDS: *INSULIN REGULAR(HUMULIN R)HUM 100 UNIT/ML VIAL SQ PRN (21:55)
--- NOTE | 2021-08-12 21:56 | NUR ---
THEATER TECHNICIAN NOTE BLOOD SUGAR 129. NO COVERAGE NEEDED.
[2021-08-13] VITALS (7 sets, daily range): BP systolic 107–150; BP diastolic 42–59
[2021-08-13] MEDS: ALBUTEROL FS 2.5 MG/3 ML VIAL.NEB NEB SCH ×4 (01:51→19:45)
[2021-08-13] MEDS: IPRATROPIUM NEB FS 0.5 MG/2.5 ML AMPUL.NEB NEB SCH ×4 (01:51→19:46)
[2021-08-13] MEDS: IV NS 0.9% 1,000 ML IV PRN ×2 (05:56→15:58)
[2021-08-13] MEDS: BLOOD SUGAR DIAGNOSTIC 1 EACH STRIP VI SCH ×4 (06:30→22:00)
[2021-08-13] MEDS: INSULIN REGULAR, HUMAN 100 UNIT/ML 3 ML VIAL SQ PRN ×2 (06:32→12:13)
--- NOTE | 2021-08-13 06:51 | NUR ---
HOUSING INSPECTORS NOTE BLOOD SUGAR 110. NO COVERAGE NEEDED THIS AM.
--- NOTE | 2021-08-13 06:51 | NUR ---
PSYCHOLOGY DEPARTMENT CHAIR CLOSING NOTE PATIENT IN BED WITH EYES CLOSED, EASY TO AROUSE. NO S/S OF APPARENT DISTRESS-- VENT DEPENDENT. BREATHING EVEN AND UNLABORED. NOT EXHIBITING PAIN VIA FLACC. TELE MONITOR READING NSR THROUGHOUT SHIFT WITH 81 BPM THIS AM. OH CATHETER DRAINING SLIGHTLY CLOUDY, YELLOW URINE WITH OUTPUT OF 1,700. PATIENT HAD X1 SMALL BOWEL MOVEMENT. G-TUBE RUNNING GLUCERNA 1.2 @55ML/HR. L.UA MIDLINE RUNNING NS @100MLS/HR. WOUND TREATMENTS RENDERED, PICTURES TAKEN. ALL NEEDS ATTENDED, ALL SCHEDULED MEDICATIONS ADMINISTERED. WILL ENDORSE TO MORNING SHIFT RN FOR CONTINUITY OF CARE.
[2021-08-13] MEDS: GLUCERNA 1.2 1,000 ML BOTTLE GT PRN (07:01)
--- NOTE | 2021-08-13 07:37 | NUR ---
RN OPENING NOTE PATIENT IN BED RESTING, SLEEPING, AWAKENS TO VERBAL STIMULI. A/O X 0, OBTUNDED, NON VERBAL. NO S/S OF PAIN NOTED AT THIS TIME. ON VENT, TOLERATING SETTING WELL AT PRESCRIBED SETTINGS, NO DISTRESS NOTED. IV ACCESS L HAND #22G, INTACT, PATENT AND FLUSHING WELL. PATIENT HAVE AN EXTERNAL INFORMATION COORDINATOR WITH CURRENT READING OF SR WITH HR OF 82. PATIENT HAVE A OH CATHETER, IN PLACE DRAINING WELL. G-TUBE RUNNING GLUCERNA 1.2 AT 55ML/HR, TOLERATING WELL. FALL AND SAFETY MEASURES IN PLACE, BED ALARM ON, BED IN LOW AND LOCK POSITION, CALL LIGHT AND TABLE WITHIN EASY REACH, SIDE RAILS UP X2. WILL CONTINUE TO MONITOR. Addendum: 08/13/21 at 1827 by Josee Preciado RN IV ACCESS DANAE MIDLINE, INTACT, PATENT AND FLUSHING WELL.
[2021-08-13] MEDS: FERROUS SULFATE UDC 300 MG/5 ML UDC GT SCH (08:46)
[2021-08-13] MEDS: AMLODIPINE BESYLATE 5 MG TABLET GT SCH (08:46)
[2021-08-13] MEDS: PROSOURCE / PROSTAT (PYXIS) 30 ML UDC GT SCH (08:46)
[2021-08-13] MEDS: CHLORHEXIDINE GLUCONATE 15 ML UDC MM SCH ×2 (08:46→16:08)
[2021-08-13] MEDS: PANTOPRAZOLE 40 MG VIAL IV SCH ×2 (08:46→16:08)
[2021-08-13] MEDS: DOCUSATE SODIUM LIQ 100 MG/10 ML UDC GT SCH ×2 (08:46→16:08)
[2021-08-13] MEDS: METOPROLOL TARTRATE 25 MG TABLET GT SCH ×2 (08:47→16:11)
[2021-08-13] MEDS: MULTIVIT W/MINERALS 1 TAB TABLET GT SCH (08:47)
[2021-08-13] MEDS: ASCORBIC ACID 500 MG TABLET GT SCH (08:47)
[2021-08-13] MEDS: DAKINS QUARTER STRENGTH (0.125%) 480 ML BOTTLE TOP SCH (08:48)
[2021-08-13] MEDS: INSULIN GLARGINE, 100 UNIT/ML CARTRIDGE SQ SCH ×2 (09:00→17:00)
[2021-08-13] MEDS: EPOETIN ALFA-EPBX 4,000 UNIT/ML VIAL SQ SCH (14:10)
[2021-08-13] MEDS: CEFTRIAXONE 1 G in IV D5W 50 ML IV SCH (16:08)
--- NOTE | 2021-08-13 18:24 | NUR ---
RN CLOSING NOTE PATIENT IN BED RESTING, SLEEPING, AWAKENS TO VERBAL STIMULI. A/O X 0, OBTUNDED, NON VERBAL. NO S/S OF PAIN NOTED AT THIS TIME. ON VENT, TOLERATING SETTING WELL AT PRESCRIBED SETTINGS, NO DISTRESS NOTED. IV ACCESS DANAE MIDLINE, INTACT, PATENT AND FLUSHING WELL. PATIENT HAVE AN EXTERNAL WATERPROOFER WITH CURRENT READING OF SR WITH HR OF 87. PATIENT HAVE A OH CATHETER, IN PLACE DRAINING WELL, OUTPUT 1,600ML. G-TUBE RUNNING GLUCERNA 1.2 AT 55ML/HR, TOLERATING WELL. FALL AND SAFETY MEASURES IN PLACE, BED ALARM ON, BED IN LOW AND LOCK POSITION, CALL LIGHT AND TABLE WITHIN EASY REACH, SIDE RAILS UP X2. WILL ENDORSE TO BANJO REPAIR PERSON. Addendum: 08/13/21 at 1832 by Josee Preciado RN WOUND CARE IMPLEMENTED. PATIENT WAS TURNED AND REPOSITIONED PER PROTOCOL.
--- NOTE | 2021-08-13 19:10 | NUR ---
GRANTS ASSISTANT OPENING NOTES: RECEIVED PATIENT IN BED, OBTUNDED, AWAKE, NON VERBAL. NOS/S OF DISTRESS NOTED. NOT IN PAIN. BED ALARM ON. BED IN LOWEST AND LOCKED POSITION. HOB ELEVATED AT ALL TIMES. WITH TRACH INTACT DRESSING IS CLEAN, DRY AND INTACT CONNECTED TO THE MECHANICAL VENT. WITH FEEDING RUNNING AT 55ML/HOUR. ON AIR MATTRESS. WITH OH CATHETER INTACT, DRAINING CLEAR YELLOW URINE.
[2021-08-13] MEDS: *INSULIN REGULAR(HUMULIN R)HUM 100 UNIT/ML VIAL SQ PRN (22:06)
--- NOTE | 2021-08-13 22:07 | NUR ---
blood sugar rxctaok=[id number], no insulin given.
[2021-08-13] MEDS: ACETAMINOPHEN 325 MG TABLET PO PRN (22:08)
[2021-08-14] VITALS: BP 124/57
[2021-08-14] MEDS: IPRATROPIUM NEB FS 0.5 MG/2.5 ML AMPUL.NEB NEB SCH ×4 (01:26→19:47)
[2021-08-14] MEDS: ALBUTEROL FS 2.5 MG/3 ML VIAL.NEB NEB SCH ×4 (01:26→19:47)
[2021-08-14] MEDS: IV NS 0.9% 1,000 ML IV PRN ×2 (02:13→13:45)
--- NOTE | 2021-08-14 02:21 | NUR ---
GT FEEDING STOPPED, FLUSHED WITH WATER AND CLAMPED.
[2021-08-14 04:00] VITALS: BP 143/41
--- NOTE | 2021-08-14 05:50 | NUR ---
GT FEEDING RESUMED AT 55ML/HOUR. HEELS OFFLOADED. TURNED AND REPOSITIONED Q 2HOURS. HOB ELEVATED AT ALL TIMES.
--- NOTE | 2021-08-14 05:57 | NUR ---
G-TUBE SITE DRESSING CHANGED.
[2021-08-14] MEDS: DEXTROSE 50%-WATER 50 ML DISP.SYRIN IV PRN (06:29)
[2021-08-14] MEDS: BLOOD SUGAR DIAGNOSTIC 1 EACH STRIP VI SCH ×4 (06:40→22:48)
--- NOTE | 2021-08-14 06:40 | NUR ---
BLOOD SUGAR CHECKED= 60, D50% 50ML ADMINISTERED PER ORDER..
--- NOTE | 2021-08-14 07:03 | NUR ---
BLOOD SUGAR RECHECKED= 143.
[2021-08-14 08:00] VITALS: BP 147/69
--- NOTE | 2021-08-14 08:11 | NUR ---
LVN LPN OPENING NOTE Patient is obtunded and nonverbal. On mechanical ventilator with the following settings: Portex #8, AC 18, TV 550, FiO2 40%, PEEP 5. Patient tolerating settings well. No SOB or s/s of distress noted. IV access on DANAE midline infusing NS at 100 ml/hr. G-tube in place running Glucerna 1.2 @ 55 ml/hr. Mcelroy catheter in place draining to a yellow colored urine. On tele monitoring showing SR, HR on the 90's. Safety precautions in place: be din low, locked position; siderails up x 2; call light within reach. Will continue to monitor.
[2021-08-14] MEDS: PANTOPRAZOLE 40 MG VIAL IV SCH ×2 (08:32→16:56)
[2021-08-14] MEDS: CHLORHEXIDINE GLUCONATE 15 ML UDC MM SCH ×2 (08:32→16:56)
[2021-08-14] MEDS: PROSOURCE / PROSTAT (PYXIS) 30 ML UDC GT SCH (08:32)
[2021-08-14] MEDS: ASCORBIC ACID 500 MG TABLET GT SCH (08:33)
[2021-08-14] MEDS: MULTIVIT W/MINERALS 1 TAB TABLET GT SCH (08:33)
[2021-08-14] MEDS: FERROUS SULFATE UDC 300 MG/5 ML UDC GT SCH (08:33)
[2021-08-14] MEDS: DOCUSATE SODIUM LIQ 100 MG/10 ML UDC GT SCH ×2 (08:33→16:56)
[2021-08-14] MEDS: AMLODIPINE BESYLATE 5 MG TABLET GT SCH (08:33)
[2021-08-14] MEDS: METOPROLOL TARTRATE 25 MG TABLET GT SCH ×2 (08:33→16:57)
[2021-08-14] MEDS: INSULIN GLARGINE, 100 UNIT/ML CARTRIDGE SQ SCH ×2 (08:34→17:00)
[2021-08-14] MEDS: DAKINS QUARTER STRENGTH (0.125%) 480 ML BOTTLE TOP SCH (08:35)
--- NOTE | 2021-08-14 09:00 | NUR ---
RN NOTE Lantus scheduled for 0900 not given, patient's blood glucose is 98.
[2021-08-14 12:00] VITALS: BP 131/63
[2021-08-14 15:43] VITALS: BP 138/70
[2021-08-14] MEDS: CEFTRIAXONE 1 G in IV D5W 50 ML IV SCH (16:56)
--- NOTE | 2021-08-14 17:21 | NUR ---
RN NOTE Lantus scheduled for 1700 not given, patient's blood glucose is 126.
--- NOTE | 2021-08-14 19:21 | NUR ---
AUTOMOTIVE AIRCONDITIONING MECHANIC CLOSING NOTE Patient is obtunded and nonverbal. On mechanical ventilator with the following settings: Portex #8, AC 18, TV 550, FiO2 40%, PEEP 5. Patient tolerating settings well. No SOB or s/s of distress noted. IV access on DANAE midline infusing NS at 100 ml/hr. G-tube in place running Glucerna 1.2 @ 55 ml/hr. Mcelroy catheter in place draining to a yellow colored urine with an output of. On tele monitoring showing SR, HR on the 80's. Wound care done, as ordered. Due meds given. Patient kept clean and dry. Safety precautions maintained: be din low, locked position; siderails up x 2; call light within reach. Will endorse to slot shift supervisor nurse for NEIL.
--- NOTE | 2021-08-14 19:30 | NUR ---
EMISSIONS TESTING TECHNICIAN OPENING NOTE PATIENT OBTUNDED, NON-VERBAL, PT RESTING COMFORTABLY. PATIENT ON MECH. VENT WITH SETTINGS: PORTEX #8, AC 18, TV 550, FIO2 40%, PEEP 5. PATIENT TOLERATING SETTINGS WELL, NO S/S OF RESP DISTRESS OR SOB NOTED, BREATHING EVEN AND UNLABORED. PATIENT ON TELE MONITORING READING SR, HR: 104. PATIENT ON GT FEEDING INFUSING GLUCERNA 1.2 @ 55 ML/HR, TO BE TURNED OFF AT 0200 AND TURNED BACK ON AT 0600 PER DAY SHIFT NURSE. IV ACCESS ON DANAE MIDLINE INTACT AND INFUSING NS @ 100 ML/HR. SAFETY MEASURES IN PLACE: CALL LIGHT WITHIN REACH, SIDE RAILS UP X 3, BED LOCKED IN LOWEST POSITION, HOB ELEVATED, BED ALARM ON. WILL CONTINUE TO MONITOR PATIENT
[2021-08-14 20:00] VITALS: BP 134/57
[2021-08-14] MEDS: *INSULIN REGULAR(HUMULIN R)HUM 100 UNIT/ML VIAL SQ PRN (22:49)
[2021-08-15] VITALS: BP 146/43
[2021-08-15] MEDS: IV NS 0.9% 1,000 ML IV PRN (00:43)
[2021-08-15] MEDS: IPRATROPIUM NEB FS 0.5 MG/2.5 ML AMPUL.NEB NEB SCH ×4 (02:20→20:12)
[2021-08-15] MEDS: ALBUTEROL FS 2.5 MG/3 ML VIAL.NEB NEB SCH ×4 (02:20→20:12)
[2021-08-15 04:00] VITALS: BP 139/53
[2021-08-15] MEDS: BLOOD SUGAR DIAGNOSTIC 1 EACH STRIP VI SCH ×4 (07:05→21:59)
--- NOTE | 2021-08-15 07:35 | NUR ---
ms rn received on bed, awake,non verbal patient vent dependent,opens eyes, folet to gravity, gtube intact w/ feeding on 55ml/hr, tolerated well w/o complication, not in any form of distress, respirations even and unlabored,no sob noted. all needs attended.
--- NOTE | 2021-08-15 07:36 | NUR ---
LACQUER MAKER CLOSING NOTE PATIENT OBTUNDED, NON-VERBAL, PT RESTING COMFORTABLY. PATIENT ON MECH. VENT WITH SETTINGS: PORTEX #8, AC 18, TV 550, FIO2 40%, PEEP 5. PATIENT TOLERATING SETTINGS WELL, NO S/S OF RESP DISTRESS OR SOB NOTED, BREATHING EVEN AND UNLABORED. PATIENT ON TELE MONITORING READING SR, HR: 90. PATIENT ON GT FEEDING INFUSING GLUCERNA 1.2 @ 55 ML/HR, TURNED OFF AT 0200 AND TURNED BACK ON AT 0600 PER DAY SHIFT NURSE. IV ACCESS ON DANAE MIDLINE INTACT AND INFUSING NS @ 100 ML/HR. MEDICATIONS GIVEN ORDERED, PT NEEDS MET THROUGHOUT SHIFT. PATIENT TURNED AND REPOSTIONED Q2H. OH CATH IN PLACE AND DRAINING YELLOW URINE. SAFETY MEASURES IN PLACE: CALL LIGHT WITHIN REACH, SIDE RAILS UP X 3, BED LOCKED IN LOWEST POSITION, HOB ELEVATED, BED ALARM ON. ENDORSED TO DAY SHIFT NURSE FOR CONTINUITY OF CARE
[2021-08-15 08:00] VITALS: BP 143/60
[2021-08-15] MEDS: INSULIN GLARGINE, 100 UNIT/ML CARTRIDGE SQ SCH ×2 (09:00→17:00)
--- NOTE | 2021-08-15 09:20 | NUR ---
ms diana due meds given,via g tube,tolerated well.
[2021-08-15] MEDS: CHLORHEXIDINE GLUCONATE 15 ML UDC MM SCH ×2 (09:23→17:32)
[2021-08-15] MEDS: FERROUS SULFATE UDC 300 MG/5 ML UDC GT SCH (09:25)
[2021-08-15] MEDS: AMLODIPINE BESYLATE 5 MG TABLET GT SCH (09:25)
[2021-08-15] MEDS: METOPROLOL TARTRATE 25 MG TABLET GT SCH ×2 (09:25→17:33)
[2021-08-15] MEDS: ASCORBIC ACID 500 MG TABLET GT SCH (09:25)
[2021-08-15] MEDS: PANTOPRAZOLE 40 MG VIAL IV SCH ×2 (09:25→17:33)
[2021-08-15] MEDS: MULTIVIT W/MINERALS 1 TAB TABLET GT SCH (09:26)
[2021-08-15] MEDS: DOCUSATE SODIUM LIQ 100 MG/10 ML UDC GT SCH ×2 (09:28→17:32)
[2021-08-15] MEDS: PROSOURCE / PROSTAT (PYXIS) 30 ML UDC GT SCH (09:28)
--- NOTE | 2021-08-15 10:00 | NUR ---
ms ortiz was seen by md andrew/ orders made and carried out.
[2021-08-15] MEDS: HEPARIN SODIUM, PORCINE 5000 UNITS/1 ML VIAL SQ SCH ×3 (10:30→17:39)
[2021-08-15] MEDS: DAKINS QUARTER STRENGTH (0.125%) 480 ML BOTTLE TOP SCH (11:38)
[2021-08-15 12:00] VITALS: BP 150/79
[2021-08-15] MEDS: EPOETIN ALFA-EPBX 4,000 UNIT/ML VIAL SQ SCH (15:19)
[2021-08-15 16:00] VITALS: BP 146/71
[2021-08-15] MEDS: CEFTRIAXONE 1 G in IV D5W 50 ML IV SCH (17:37)
--- NOTE | 2021-08-15 18:31 | NUR ---
ms rn on bed, no distress noted,all needs attended.
--- NOTE | 2021-08-15 19:30 | NUR ---
RN OPENING NOTE PATIENT IN BED, EYES OPEN. PATIENT IS NON VERBAL. [facility], AC 18 , TV 550, FIO2 40%, AND PEEP 5. PATIENT IS ON TELE MONITOR SR 85 BPM. PATIENT NOT IN ANY PAIN VIA FLACC. PATIENT HAS A OH CATHETER IN PLACE DRAINING VIA GRAVITY. PATIENT HAS GLUCERNA 1.2 AT 55 ML/HR ONGOING, NO RESIDUAL, TOLERATING WELL. DANAE MIDLINE PATENT AND INTACT WITH NS @ 100 ML/HR RUNNING. SAFETY MEASURES IN PLACE: BED LOCKED AND IN LOWEST POSITION, CALL LIGHT WITHIN REACH, SIDE RAILS UP. HOB ELEVATED. WILL MONITOR PATIENT CLOSELY.
[2021-08-15 20:00] VITALS: BP 141/58
[2021-08-15] MEDS: *INSULIN REGULAR(HUMULIN R)HUM 100 UNIT/ML VIAL SQ PRN (22:00)
--- NOTE | 2021-08-15 22:00 | NUR ---
bs 115 mg/dl, no coverage given. on tf
[2021-08-16] VITALS: BP 136/52
[2021-08-16] MEDS: IPRATROPIUM NEB FS 0.5 MG/2.5 ML AMPUL.NEB NEB SCH ×4 (01:18→20:14)
[2021-08-16] MEDS: ALBUTEROL FS 2.5 MG/3 ML VIAL.NEB NEB SCH ×4 (01:18→20:14)
[2021-08-16] MEDS: IV NS 0.9% 1,000 ML IV PRN ×2 (03:11→17:56)
[2021-08-16 04:00] VITALS: BP 131/57
[2021-08-16 06:23] LABS: CALCIUM, SERUM 8.8 mg/dL (8.5-10.1); CREATININE 1.3 mg/dL (0.6-1.3); MAGNESIUM 1.7 mg/dL (1.8-2.4)
[2021-08-16] MEDS: INSULIN REGULAR, HUMAN 100 UNIT/ML 3 ML VIAL SQ PRN ×2 (06:30→18:00)
[2021-08-16] MEDS: BLOOD SUGAR DIAGNOSTIC 1 EACH STRIP VI SCH ×4 (06:30→22:08)
--- NOTE | 2021-08-16 06:42 | NUR ---
RN CLOSING NOTE PATIENT IN BED, PATIENT IS NON VERBAL. PATIENT IN [facility] VENT, AC 18 , TV 550, FIO2 40%, AND PEEP 5. PATIENT IS ON TELE MONITOR SR 99 BPM. PATIENT NOT IN ANY PAIN VIA FLACC. PATIENT HAS A OH CATHETER IN PLACE DRAINING VIA GRAVITY. PATIENT HAS GLUCERNA 1.2 AT 55 ML/HR ONGOING, NO RESIDUAL, TOLERATING WELL. DANAE MIDLINE PATENT AND INTACT WITH NS @ 100 ML/HR RUNNING. WOUND CARE RENDERED. BS 120 MG/DL, NO COVERAGE GIVEN. SAFETY MEASURES IN PLACE: BED LOCKED AND IN LOWEST POSITION, CALL LIGHT WITHIN REACH, SIDE RAILS UP. HOB ELEVATED. WILL MONITOR PATIENT CLOSELY.
[2021-08-16 06:47] LABS: BASOPHILS % (AUTO) 0.7 % (0.0-2.0); EOSINOPHILS % (AUTO) 4.6 % (0.0-6.0); HEMATOCRIT 25 % (33-45); HEMOGLOBIN 8.4 g/dL (11.5-14.8); LYMPHOCYTES # (AUTO) 1.4 K/uL (0.8-4.8); LYMPHOCYTES % (AUTO) 21.2 % (20.0-44.0); MEAN CORPUSCULAR HGB CONC 34 g/dl (31.0-36.0); MEAN CORPUSCULAR VOLUME 96 fL (82-100); MONOCYTES # (AUTO) 0.4 K/uL (0.1-1.30); MONOCYTES % (AUTO) 6.1 % (2.0-12.0); NEUTROPHILS # (AUTO) 4.5 K/uL (1.8-8.9); NEUTROPHILS % (AUTO) 67.4 % (43.0-81.0); PLATELET COUNT (AUTO) 413 K/uL (150-450); RED BLOOD CELL COUNT(AUTO) 2.58 MIL/uL (4.0-5.2); WHITE BLOOD COUNT (AUTO) 6.7 K/uL (4.3-11.0)
--- NOTE | 2021-08-16 07:33 | NUR ---
ms rn received on bed, non verbal patient, vent dependent, kaur to gravity w/ yellowish urine output , g tube intact w/ feeding of glucerna at 55ml/hour,tolerated well w/o residual,repositioned for comfort.all needs attended.
[2021-08-16 08:00] VITALS: BP 147/46
[2021-08-16] MEDS: INSULIN GLARGINE, 100 UNIT/ML CARTRIDGE SQ SCH ×2 (09:00→17:59)
--- NOTE | 2021-08-16 09:00 | NUR ---
ms diana' bs-[id number] - no coverage for lantus at this time, only if 140 and above.
--- NOTE | 2021-08-16 10:00 | NUR ---
ms ortiz due meds given,tolerated well via g tube.
[2021-08-16] MEDS: CHLORHEXIDINE GLUCONATE 15 ML UDC MM SCH ×2 (10:06→17:28)
[2021-08-16] MEDS: PANTOPRAZOLE 40 MG VIAL IV SCH ×2 (10:06→17:28)
[2021-08-16] MEDS: METOPROLOL TARTRATE 25 MG TABLET GT SCH ×2 (10:07→17:00)
[2021-08-16] MEDS: PROSOURCE / PROSTAT (PYXIS) 30 ML UDC GT SCH (10:08)
[2021-08-16] MEDS: DOCUSATE SODIUM LIQ 100 MG/10 ML UDC GT SCH ×2 (10:08→17:28)
[2021-08-16] MEDS: FERROUS SULFATE UDC 300 MG/5 ML UDC GT SCH (10:08)
[2021-08-16] MEDS: ASCORBIC ACID 500 MG TABLET GT SCH (10:08)
[2021-08-16] MEDS: AMLODIPINE BESYLATE 5 MG TABLET GT SCH (10:08)
[2021-08-16] MEDS: MULTIVIT W/MINERALS 1 TAB TABLET GT SCH (10:08)
[2021-08-16] MEDS: HEPARIN SODIUM, PORCINE 5000 UNITS/1 ML VIAL SQ SCH ×2 (10:11→17:35)
[2021-08-16 12:00] VITALS: BP 134/58
[2021-08-16] MEDS: Magnesium 1GM/D5W 100ML PREMIX 100 ML IV SCH ×2 (12:34→14:33)
--- NOTE | 2021-08-16 14:00 | NUR ---
ms rn bs - 143- did not give coverage, patient has hx of low bs to 70s.
--- NOTE | 2021-08-16 14:30 | NUR ---
ms rn dr. gutierrez made aware that the son refused to amputate pt's foot, gave him son and daughter's number.
[2021-08-16 16:00] VITALS: BP 109/49
[2021-08-16] MEDS: CEFTRIAXONE 1 G in IV D5W 50 ML IV SCH (17:34)
[2021-08-16] MEDS: GLUCERNA 1.2 1,000 ML BOTTLE GT PRN (17:56)
[2021-08-16] MEDS: DAKINS QUARTER STRENGTH (0.125%) 480 ML BOTTLE TOP SCH (17:57)
--- NOTE | 2021-08-16 18:28 | NUR ---
ms rn on bed, no distress noted all needs attended.
--- NOTE | 2021-08-16 19:30 | NUR ---
RN OPENING NOTE PATIENT IN BED, EYES OPEN. PATIENT IS NON VERBAL. [facility], AC 18 , TV 550, FIO2 40%, AND PEEP 5. PATIENT IS ON TELE MONITOR SR 93 BPM. PATIENT NOT IN ANY PAIN VIA FLACC. PATIENT HAS A OH CATHETER IN PLACE DRAINING VIA GRAVITY. PATIENT HAS GLUCERNA 1.2 AT 55 ML/HR ONGOING, NO RESIDUAL, TOLERATING WELL. DANAE MIDLINE PATENT AND INTACT WITH NS @ 100 ML/HR RUNNING. SAFETY MEASURES IN PLACE: BED LOCKED AND IN LOWEST POSITION, CALL LIGHT WITHIN REACH, SIDE RAILS UP. HOB ELEVATED. WILL MONITOR PATIENT CLOSELY.
[2021-08-16 20:00] VITALS: BP 135/60
[2021-08-16] MEDS: *INSULIN REGULAR(HUMULIN R)HUM 100 UNIT/ML VIAL SQ PRN (22:08)
[2021-08-17] VITALS: BP 133/54
[2021-08-17] MEDS: ALBUTEROL FS 2.5 MG/3 ML VIAL.NEB NEB SCH ×4 (01:10→19:42)
[2021-08-17] MEDS: IPRATROPIUM NEB FS 0.5 MG/2.5 ML AMPUL.NEB NEB SCH ×4 (01:10→19:42)
[2021-08-17 04:00] VITALS: BP 142/59
[2021-08-17] MEDS: IV NS 0.9% 1,000 ML IV PRN ×2 (04:52→17:24)
[2021-08-17 06:04] LABS: CALCIUM, SERUM 8.4 mg/dL (8.5-10.1); CREATININE 1.3 mg/dL (0.6-1.3); MAGNESIUM 2.2 mg/dL (1.8-2.4); PHOSPHORUS 3.8 mg/dL (2.5-4.9); POTASSIUM 4.2 mmol/L (3.5-5.1)
[2021-08-17 06:21] LABS: BASOPHILS % (AUTO) 0.5 % (0.0-2.0); EOSINOPHILS % (AUTO) 4.6 % (0.0-6.0); HEMATOCRIT 26 % (33-45); HEMOGLOBIN 8.9 g/dL (11.5-14.8); LYMPHOCYTES # (AUTO) 1.8 K/uL (0.8-4.8); LYMPHOCYTES % (AUTO) 24.8 % (20.0-44.0); MEAN CORPUSCULAR HGB CONC 34 g/dl (31.0-36.0); MEAN CORPUSCULAR VOLUME 97 fL (82-100); MONOCYTES # (AUTO) 0.4 K/uL (0.1-1.30); MONOCYTES % (AUTO) 5.4 % (2.0-12.0); NEUTROPHILS # (AUTO) 4.8 K/uL (1.8-8.9); NEUTROPHILS % (AUTO) 64.7 % (43.0-81.0); PLATELET COUNT (AUTO) 392 K/uL (150-450); RED BLOOD CELL COUNT(AUTO) 2.69 MIL/uL (4.0-5.2); WHITE BLOOD COUNT (AUTO) 7.4 K/uL (4.3-11.0)
[2021-08-17] MEDS: BLOOD SUGAR DIAGNOSTIC 1 EACH STRIP VI SCH ×4 (06:44→21:41)
--- NOTE | 2021-08-17 07:24 | NUR ---
UI UX DEVELOPER OPENING NOTES RECEIVED PATIENT AWAKE IN BED IN ACUTE SIGNS OF DISTRESS. HOB ELEVATED. PT IS NON-VERBAL AND OBTUNDED. PT WITH TRACH PORTEX #8 CONNECTED TO MECHANICAL VENTILATOR @ PRESCRIBED SETTINGS, TOLERATING SETTINGS WELL, SP02 100% AT THIS TIME. ON TELE-MONITOR WITH CURRENT READING OF NSR, HR 98. DANAE MIDLINE #18G INTACT WITH IVF NS @ 100ML/HR IN INFUSING WELL. G-TUBE IN PLACE WITH GTF OF GLUCERNA 1.2 @ 55ML/HR IN PROGRESS, TOLERATING WELL. PT WITH OH CATHETER DRAINING CLEAR YELLOW URINE VIA GRAVITY. ASPIRATION, FALL AND SAFETY PRECAUTIONS MAINTAINED: BED IN LOWEST LOCKED POSITION WITH SR UP X3. HOB ELEVATED, CALL LIGHT W/I REACH. WILL CONTINUE TO MONITOR PT.
--- NOTE | 2021-08-17 07:33 | NUR ---
RN CLOSING NOTE PATIENT IN BED, EYES CLOSED. PATIENT IS NON VERBAL. [facility], [facility] , TV 550, FIO2 40%, AND PEEP 5. PATIENT IS ON TELE MONITOR SR 90 BPM. PATIENT NOT IN ANY PAIN VIA FLACC. PATIENT HAS A OH CATHETER IN PLACE DRAINING VIA GRAVITY. PATIENT HAS GLUCERNA 1.2 AT 55 ML/HR ONGOING, NO RESIDUAL, TOLERATING WELL. BS 81 MG/DL NO COVERAGE GIVEN. TURNED ON FEEDING AT 0600. DANAE MIDLINE PATENT AND INTACT WITH NS @ 100 ML/HR RUNNING. SAFETY MEASURES IN PLACE: BED LOCKED AND IN LOWEST POSITION, CALL LIGHT WITHIN REACH, SIDE RAILS UP. HOB ELEVATED. ALL NEEDS MET AND ATTENDED. ALL ORDERS CARRIED OUT. WILL ENDORSE TO DAY SHIFT NURSE FOR NEIL.
--- NOTE | 2021-08-17 07:35 | NUR ---
YOUTH LEADER OPENING NOTES RECEIVED PATIENT IN BED LYING AT SEMI-HENNING'S POSITION. OBTUNDED, RESPONSIVE TO DEEP TACTILE AND PAIN STIMULI. PT WITH TRACH CONNECTED TO MECHANICAL VENTILATOR, TOLERATING CURRENT SETTINGS WELL WITH NO ACUTE RESPIRATORY DISTRESS NOTED. ON TELE-MONITOR WITH CURRENT READING OF NSR, HR 95. LEFT UPPER ARM MIDLINE INTACT WITH IVF NS @ 100ML/HR IN INFUSING WELL. ON GTF OF GLUCERNA 1.2 @ 55ML/HR IN PROGRESS, TOLERATING WELL. OH CATHETER IN PLACE DRAINING CLEAR YELLOW URINE VIA GRAVITY. ASPIRATION, FALL AND SAFETY PRECAUTIONS MAINTAINED: BED IN LOWEST LOCKED POSITION WITH SR UP X3. CALL LIGHT W/I REACH. WILL CONTINUE TO MONITOR PT ACCORDINGLY.
[2021-08-17 08:00] VITALS: BP 158/58
[2021-08-17] MEDS: PROSOURCE / PROSTAT (PYXIS) 30 ML UDC GT SCH ×2 (08:38→09:08)
[2021-08-17] MEDS: AMLODIPINE BESYLATE 5 MG TABLET GT SCH (08:40)
[2021-08-17] MEDS: METOPROLOL TARTRATE 25 MG TABLET GT SCH ×2 (08:40→17:20)
[2021-08-17] MEDS: INSULIN GLARGINE, 100 UNIT/ML CARTRIDGE SQ SCH ×2 (09:00→17:00)
[2021-08-17] MEDS: ASCORBIC ACID 500 MG TABLET GT SCH (09:08)
[2021-08-17] MEDS: FERROUS SULFATE UDC 300 MG/5 ML UDC GT SCH (09:08)
[2021-08-17] MEDS: DOCUSATE SODIUM LIQ 100 MG/10 ML UDC GT SCH ×2 (09:09→17:09)
[2021-08-17] MEDS: PANTOPRAZOLE 40 MG VIAL IV SCH ×2 (09:09→17:09)
[2021-08-17] MEDS: MULTIVIT W/MINERALS 1 TAB TABLET GT SCH (09:09)
[2021-08-17] MEDS: CHLORHEXIDINE GLUCONATE 15 ML UDC MM SCH ×2 (09:10→17:09)
[2021-08-17] MEDS: HEPARIN SODIUM, PORCINE 5000 UNITS/1 ML VIAL SQ SCH ×2 (09:14→17:22)
--- NOTE | 2021-08-17 09:59 | NUR ---
RN NOTES LANTUS NOT ADMINISTER THIS MORNING, BS WAS 1O1 MG/DL. MD ORDER: IF BS <140, HOLD LANTUS
[2021-08-17] MEDS: DAKINS QUARTER STRENGTH (0.125%) 480 ML BOTTLE TOP SCH (10:01)
[2021-08-17 12:00] VITALS: BP 136/55
[2021-08-17] MEDS: INSULIN REGULAR, HUMAN 100 UNIT/ML 3 ML VIAL SQ PRN (12:11)
[2021-08-17] MEDS: EPOETIN ALFA-EPBX 4,000 UNIT/ML VIAL SQ SCH (15:15)
[2021-08-17 16:00] VITALS: BP 151/52
[2021-08-17] MEDS: CEFTRIAXONE 1 G in IV D5W 50 ML IV SCH (17:16)
--- NOTE | 2021-08-17 18:46 | NUR ---
LICENSED NUCLEAR OPERATOR CLOSING NOTES PATIENT IN BED LYING AT SEMI-HENNING'S POSITION. OBTUNDED, RESPONSIVE TO DEEP TACTILE AND PAIN STIMULI. PT WITH TRACH CONNECTED TO MECHANICAL VENTILATOR, TOLERATING CURRENT SETTINGS WELL WITH NO ACUTE RESPIRATORY DISTRESS NOTED. ON TELE-MONITOR WITH CURRENT READING OF NSR, HR 92. LEFT UPPER ARM MIDLINE INTACT WITH IVF NS @ 100ML/HR IN INFUSING WELL. ON GTF OF GLUCERNA 1.2 @ 55ML/HR IN PROGRESS, TOLERATING WELL. OH CATHETER IN PLACE DRAINING CLEAR YELLOW URINE VIA GRAVITY. ASPIRATION, SAFETY PRECAUTIONS MAINTAINED: BED IN LOWEST LOCKED POSITION WITH SR UP X3. CALL LIGHT W/I REACH. WILL CONTINUE TO MONITOR PT ACCORDINGLY. ENDORSED TO TYPISTS SUPERVISOR NURSE FOR CONTINUITY OF CARE.
--- NOTE | 2021-08-17 18:50 | NUR ---
CALENDERER CLOSING NOTES PATIENT IN BED ASLEEP AT THIS TIME, AWAKENS TO TACTILE STIMULI. HOB ELEVATED. PT WITH TRACH PORTEX #8 CONNECTED TO MECHANICAL VENTILATOR, TOLERATING CURRENT SETTINGS WELL W/ NO ACUTE RESPIRATORY DISTRESS NOTED. PT IS OBTUNDED, NON-VERBAL, RESPONSIVE TO DEEP TACTILE AND PAIN STIMULI. ON TELE-MONITOR SHOWS READING OF NSR, HR 80 AT THIS TIME. DANAE MIDLINE INTACT WITH IVF NS @ 100ML/HR INFUSING WELL. ON GTF OF GLUCERNA 1.2 @ 55ML/HR IN PROGRESS, TOLERATING WELL. OH CATHETER IN PLACE DRAINING SLIGHTLY CLOUDY YELLOW URINE VIA GRAVITY, OH CARE DONE. PT TURNED AND REPOSITIONED Q 2HRS AND PRN. ALL NEEDS PROVIDED WELL AND KEPT PT COMFORTABLE. ASPIRATION, FALL AND SAFETY PRECAUTIONS MAINTAINED: BED IN LOWEST LOCKED POSITION WITH SR UP X3. CALL LIGHT W/I REACH. WILL ENDORSE NEIL TO CARTON FILLER NURSE.
--- NOTE | 2021-08-17 19:20 | NUR ---
TELE/RN OPENING NOTE RECEIVED PATIENT RESTING IN BED. OBTUNDED AT BASELINE. NO S/SX OF PAIN AT THIS TIME. CONTINUES ON MECHANICAL VENT WITH PATIENT TOLERATING SETTINGS WELL. NO S/SX OF RESPIRATORY DISTRESS NOTED. IV ACCESS TO LEFT UPPER ARM MIDLINE #18G INTACT AND PATENT. CONTINUES ON IVF NS @ 100ML/HR. CONTINUES ON IV ABX. CONTINUES ON GT FEED GLUCERNA 1.2 @ 55ML/HR WITH NO RESIDUAL NOTED AT THIS TIME. OH CATHETER IN PLACE DRAINING CLEAR, YELLOW URINE TO GRAVITY. CONTINUES ON TELE MONITOR WITH CURRENT READING SR HR 95. ASPIRATION, FALL AND SAFETY PRECAUTIONS MAINTAINED. ALL NEEDS ATTENDED TO AT THIS TIME.
[2021-08-17 20:00] VITALS: BP 127/63
[2021-08-18] VITALS: BP 157/43
[2021-08-18] MEDS: ALBUTEROL FS 2.5 MG/3 ML VIAL.NEB NEB SCH ×4 (01:26→19:35)
[2021-08-18] MEDS: IPRATROPIUM NEB FS 0.5 MG/2.5 ML AMPUL.NEB NEB SCH ×4 (01:26→19:35)
[2021-08-18] MEDS: GLUCERNA 1.2 1,000 ML BOTTLE GT PRN ×2 (01:46→21:36)
[2021-08-18 04:00] VITALS: BP 141/52
[2021-08-18] MEDS: IV NS 0.9% 1,000 ML IV PRN ×3 (04:04→22:52)
--- NOTE | 2021-08-18 06:10 | NUR ---
TELE/RN CLOSING NOTE PATIENT CURRENTLY RESTING IN BED. OBTUNDED AT BASELINE. NO S/SX OF PAIN AT THIS TIME. CONTINUES ON MECHANICAL VENT WITH PATIENT TOLERATING SETTINGS WELL. NO S/SX OF RESPIRATORY DISTRESS NOTED. IV ACCESS TO LEFT UPPER ARM MIDLINE #18G INTACT AND PATENT. CONTINUES ON IVF NS @ 100ML/HR. CONTINUES ON IV ABX. CONTINUES ON GT FEED GLUCERNA 1.2 @ 55ML/HR WITH NO RESIDUAL NOTED AT THIS TIME. OH CATHETER IN PLACE DRAINING CLEAR, YELLOW URINE TO GRAVITY. TOTAL OUTPUT WAS 1800CC THIS SHIFT. CONTINUES ON TELE MONITOR WITH CURRENT READING SR HR 100. ASPIRATION, FALL AND SAFETY PRECAUTIONS MAINTAINED. WILL ENDORSE PLAN OF CARE TO ONCOMING SHIFT.
[2021-08-18] MEDS: BLOOD SUGAR DIAGNOSTIC 1 EACH STRIP VI SCH ×4 (06:28→23:00)
[2021-08-18] MEDS: INSULIN REGULAR, HUMAN 100 UNIT/ML 3 ML VIAL SQ PRN ×2 (06:29→17:20)
[2021-08-18 08:00] VITALS: BP 133/41
[2021-08-18] MEDS: INSULIN GLARGINE, 100 UNIT/ML CARTRIDGE SQ SCH ×2 (09:00→17:19)
--- NOTE | 2021-08-18 09:00 | NUR ---
RN NOTE Patient's blood glucose is 110, lantus scheduled at 0900 held.
[2021-08-18] MEDS: PANTOPRAZOLE 40 MG VIAL IV SCH ×2 (09:54→16:43)
[2021-08-18] MEDS: FERROUS SULFATE UDC 300 MG/5 ML UDC GT SCH (09:54)
[2021-08-18] MEDS: HEPARIN SODIUM, PORCINE 5000 UNITS/1 ML VIAL SQ SCH ×2 (09:56→16:48)
[2021-08-18] MEDS: DOCUSATE SODIUM LIQ 100 MG/10 ML UDC GT SCH ×2 (09:57→16:42)
[2021-08-18] MEDS: METOPROLOL TARTRATE 25 MG TABLET GT SCH ×2 (09:57→16:47)
[2021-08-18] MEDS: AMLODIPINE BESYLATE 5 MG TABLET GT SCH (09:57)
[2021-08-18] MEDS: MULTIVIT W/MINERALS 1 TAB TABLET GT SCH (09:57)
[2021-08-18] MEDS: ASCORBIC ACID 500 MG TABLET GT SCH (09:57)
[2021-08-18] MEDS: CHLORHEXIDINE GLUCONATE 15 ML UDC MM SCH ×2 (09:57→16:42)
[2021-08-18] MEDS: DAKINS QUARTER STRENGTH (0.125%) 480 ML BOTTLE TOP SCH (09:58)
[2021-08-18 12:00] VITALS: BP 133/35
[2021-08-18 16:00] VITALS: BP 109/30
[2021-08-18] MEDS: CEFTRIAXONE 2 G in IV D5W 100 ML IV SCH (16:53)
[2021-08-18] MEDS ORDERED: CEFTRIAXONE 2 G in IV D5W 50 ML IV SCH (17:00)
--- NOTE | 2021-08-18 17:00 | NUR ---
RN NOTE Metoprolol scheduled for 1700 held, patient's BP is 95/66. Will continue to monitor patient.
--- NOTE | 2021-08-18 18:52 | NUR ---
ACCOUNT ENGINEER CLOSING NOTE Patient is obtunded, opens eyes. On mechanical ventilator with the following settings: Portex #8, AC 18, TV 550, Fio2 40%, PEEP 5; Tolerating settings well. IV access on DANAE midline #18 infusing NS at 100 ml/hr. G-tube in place running Glucerna 1.2 at 55 ml/hr. Mcelroy catheter in place draining to a yellow colored urine With an output of 1500 cc. On tele monitoring showing SR, HR 91. Due meds given. Patient kept clean and dry. Wound care done, as ordered. Safety precautions maintained: bed in low, locked position; siderails up x 2; call light within reach. Will endorse to corrosion engineer nurse for NEIL.
--- NOTE | 2021-08-18 19:15 | NUR ---
laminating press operator opening notes Pt is resting in bed comfortably. Pt is obtunded and able to open eyes. On mec. vent. O2 sat is 100%. No SOB. No S/S of distress noted. Tele monitor showed SR hr 95. DANAE midline is clean, intact and infusing well NS @ 100 ml/hr. kaur cath is inplaced and draining yellow urine. Gtube feeding running Glucerna 1.2 @ 55ml/hr. Safety precautions is maintained. Bed at low position, brakes locked, side rails upX3, hob elevated, brakes on and call light is within reach. Will continue to monitor.
[2021-08-18 20:00] VITALS: BP 131/59
[2021-08-18] MEDS: *INSULIN REGULAR(HUMULIN R)HUM 100 UNIT/ML VIAL SQ PRN (23:00)
[2021-08-19] VITALS: BP_SYST 132; BP_SYST 32; BP_DIAS 55
[2021-08-19] MEDS: ALBUTEROL FS 2.5 MG/3 ML VIAL.NEB NEB SCH ×4 (01:59→19:43)
[2021-08-19] MEDS: IPRATROPIUM NEB FS 0.5 MG/2.5 ML AMPUL.NEB NEB SCH ×4 (01:59→19:43)
[2021-08-19 04:00] VITALS: BP 131/55
[2021-08-19 06:48] LABS: CALCIUM, SERUM 8.4 mg/dL (8.5-10.1); CREATININE 1.4 mg/dL (0.6-1.3); MAGNESIUM 1.7 mg/dL (1.8-2.4); PHOSPHORUS 3.4 mg/dL (2.5-4.9); POTASSIUM 4.4 mmol/L (3.5-5.1)
[2021-08-19] MEDS: BLOOD SUGAR DIAGNOSTIC 1 EACH STRIP VI SCH ×4 (06:50→22:13)
--- NOTE | 2021-08-19 06:51 | NUR ---
RN notes Pt's blood sugar was 56 and rechecked again is 137. No S/S of distress noted.
--- NOTE | 2021-08-19 06:58 | NUR ---
multimedia producer closing notes Pt is resting in bed comfortably. Pt is obtunded and able to open eyes. On mec. vent. O2 sat is 100%. No SOB. No S/S of distress noted. Tele monitor showed SR hr 92. VS is stable. Routine meds were given as ordered. DANAE midline is clean, intact and infusing well NS @ 100 ml/hr. kaur cath is inplaced and draining yellow urine 650 ml. Gtube feeding running Glucerna 1.2 @ 55ml/hr with 0 residul. Wound care provided as ordered. Safety precautions is maintained. Bed at low position, brakes locked, side rails upX3, hob elevated, brakes on and call light is within reach. Will endorse to am nurse for NEIL.
--- NOTE | 2021-08-19 07:27 | NUR ---
DEALERSHIP MANAGER OPENING NOTE Patient is obtunded, opens eyes. On mechanical ventilator with the following settings: Portex #8, AC 18, TV 550, Fio2 40%, PEEP 5; Tolerating settings well. IV access on DANAE midline #18 infusing NS at 100 ml/hr. G-tube in place running Glucerna 1.2 at 55 ml/hr. Mcelroy catheter in place draining to a yellow colored urine. On tele monitoring showing SR, HR on the 90's. Safety precautions in place: bed in low, locked position; siderails up x 2; call light within reach. Will continue to monitor.
[2021-08-19 08:16] LABS: BASOPHILS % (AUTO) 0.5 % (0.0-2.0); HEMATOCRIT 27 % (33-45); HEMOGLOBIN 8.9 g/dL (11.5-14.8); LYMPHOCYTES # (AUTO) 1.6 K/uL (0.8-4.8); LYMPHOCYTES % (AUTO) 20.5 % (20.0-44.0); MEAN CORPUSCULAR HGB CONC 34 g/dl (31.0-36.0); MEAN CORPUSCULAR VOLUME 97 fL (82-100); MONOCYTES # (AUTO) 0.4 K/uL (0.1-1.30); MONOCYTES % (AUTO) 4.8 % (2.0-12.0); NEUTROPHILS # (AUTO) 5.3 K/uL (1.8-8.9); NEUTROPHILS % (AUTO) 69.2 % (43.0-81.0); PLATELET COUNT (AUTO) 351 K/uL (150-450); RED BLOOD CELL COUNT(AUTO) 2.72 MIL/uL (4.0-5.2); WHITE BLOOD COUNT (AUTO) 7.7 K/uL (4.3-11.0)
[2021-08-19 08:28] VITALS: BP 150/60
[2021-08-19] MEDS: INSULIN GLARGINE, 100 UNIT/ML CARTRIDGE SQ SCH ×2 (09:00→17:00)
--- NOTE | 2021-08-19 09:00 | NUR ---
RN NOTE Lantus scheduled for 0900 held, patient's blood glucose is 62. [place] juice given via g-tube, will continue to monitor.
[2021-08-19] MEDS: CHLORHEXIDINE GLUCONATE 15 ML UDC MM SCH ×2 (09:56→17:13)
[2021-08-19] MEDS: FERROUS SULFATE UDC 300 MG/5 ML UDC GT SCH (09:56)
[2021-08-19] MEDS: METOPROLOL TARTRATE 25 MG TABLET GT SCH ×2 (09:56→17:13)
[2021-08-19] MEDS: ASCORBIC ACID 500 MG TABLET GT SCH (09:56)
[2021-08-19] MEDS: PANTOPRAZOLE 40 MG VIAL IV SCH ×2 (09:56→17:13)
[2021-08-19] MEDS: DOCUSATE SODIUM LIQ 100 MG/10 ML UDC GT SCH ×2 (09:56→17:13)
[2021-08-19] MEDS: AMLODIPINE BESYLATE 5 MG TABLET GT SCH (09:57)
[2021-08-19] MEDS: MULTIVIT W/MINERALS 1 TAB TABLET GT SCH (09:57)
[2021-08-19] MEDS: PROSOURCE / PROSTAT (PYXIS) 30 ML UDC GT SCH (09:58)
[2021-08-19] MEDS: HEPARIN SODIUM, PORCINE 5000 UNITS/1 ML VIAL SQ SCH ×2 (09:59→17:14)
[2021-08-19] MEDS: DAKINS QUARTER STRENGTH (0.125%) 480 ML BOTTLE TOP SCH (10:00)
--- NOTE | 2021-08-19 11:25 | NUR ---
RN NOTE Blood glucose went up to 75. No Insulin given per sliding scale. Will continue to monitor patient.
[2021-08-19 12:02] VITALS: BP 127/66
[2021-08-19] MEDS: IV NS 0.9% 1,000 ML IV PRN (13:00)
[2021-08-19] MEDS: Magnesium 1GM/D5W 100ML PREMIX 100 ML IV SCH ×2 (13:38→14:40)
--- NOTE | 2021-08-19 15:00 | NUR ---
RN NOTE Dr. Monisha Wayne informed about signed consent for Left BKA.
[2021-08-19 16:07] VITALS: BP 125/46
[2021-08-19] MEDS: CEFTRIAXONE 2 G in IV D5W 100 ML IV SCH (17:09)
--- NOTE | 2021-08-19 17:15 | NUR ---
RN NOTE Lantus scheduled for 1700 held, blood glucose is 123.
[2021-08-19] MEDS: GLUCERNA 1.2 1,000 ML BOTTLE GT PRN (18:52)
--- NOTE | 2021-08-19 18:59 | NUR ---
MANAGER WOUND CARE CLOSING NOTE Patient is obtunded, opens eyes. On mechanical ventilator with the following settings: Portex #8, AC 18, TV 550, Fio2 40%, PEEP 5; Tolerating settings well. IV access on DANAE midline #18 infusing NS at 100 ml/hr. G-tube in place running Glucerna 1.2 at 55 ml/hr. Mcelroy catheter in place draining to a yellow colored urine with an output of 1800 cc. On tele monitoring showing SR, HR on the 80's. Patient kept clean and dry. Due meds given. Wound care done, as ordered. Safety precautions maintained: bed in low, locked position; siderails up x 2; call light within reach. Will endorse to shift supervisor rn nurse for NEIL.
--- NOTE | 2021-08-19 19:30 | NUR ---
RN OPENING NOTES RECEIVED PT IN BED, EYES OPEN. AOx1, OBTUNDED. ON MECHANICAL VENT AND TOLERATING WELL. NO SOB NOTED. NO S/SX OF RESPIRATORY DISTRESS NOTED. TELE MONITOR DETECTS SR WITH RATE OF 84. IV ACCESS IN DANAE MIDLINE #18 RUNNING NS @ 100 ML/HR. OH CATHETER DRAINING CLEAR, YELLOW URINE. G-TUBE IN PLACE WITH GLUCERNA 1.2 RUNNING @ 55 ML/HR. SAFETY PRECAUTIONS IN PLACE: BED IN LOWEST, LOCKED POSITION, SIDERAILS UPx2, AND BRAKES ON. TABLE AND CALL LIGHT WITHIN REACH. WILL CONTINUE TO MONITOR.
[2021-08-19 20:00] VITALS: BP 143/56
[2021-08-19] MEDS: *INSULIN REGULAR(HUMULIN R)HUM 100 UNIT/ML VIAL SQ PRN (22:14)
[2021-08-20] VITALS: BP 144/98
[2021-08-20] MEDS: IV NS 0.9% 1,000 ML IV PRN ×3 (00:37→22:57)
[2021-08-20] MEDS: ALBUTEROL FS 2.5 MG/3 ML VIAL.NEB NEB SCH ×4 (01:53→20:11)
[2021-08-20] MEDS: IPRATROPIUM NEB FS 0.5 MG/2.5 ML AMPUL.NEB NEB SCH ×4 (01:53→20:11)
[2021-08-20 04:00] VITALS: BP 126/68
[2021-08-20 06:12] LABS: BASOPHILS % (AUTO) 0.4 % (0.0-2.0); EOSINOPHILS % (AUTO) 5.8 % (0.0-6.0); HEMATOCRIT 25 % (33-45); HEMOGLOBIN 8.5 g/dL (11.5-14.8); LYMPHOCYTES # (AUTO) 1.7 K/uL (0.8-4.8); LYMPHOCYTES % (AUTO) 22.1 % (20.0-44.0); MEAN CORPUSCULAR HGB CONC 34 g/dl (31.0-36.0); MEAN CORPUSCULAR VOLUME 97 fL (82-100); MONOCYTES # (AUTO) 0.4 K/uL (0.1-1.30); MONOCYTES % (AUTO) 4.9 % (2.0-12.0); NEUTROPHILS # (AUTO) 5.1 K/uL (1.8-8.9); NEUTROPHILS % (AUTO) 66.8 % (43.0-81.0); PLATELET COUNT (AUTO) 327 K/uL (150-450); WHITE BLOOD COUNT (AUTO) 7.6 K/uL (4.3-11.0)
[2021-08-20] MEDS: BLOOD SUGAR DIAGNOSTIC 1 EACH STRIP VI SCH ×4 (06:32→22:00)
[2021-08-20] MEDS: INSULIN REGULAR, HUMAN 100 UNIT/ML 3 ML VIAL SQ PRN ×3 (06:33→16:49)
--- NOTE | 2021-08-20 06:55 | NUR ---
RN CLOSING NOTES PT IN BED, EYES CLOSED. AOx1, OBTUNDED. ON MECHANICAL VENT AND TOLERATING WELL. NO SOB NOTED. NO S/SX OF RESPIRATORY DISTRESS NOTED. TELE MONITOR DETECTS SINUS RHYTHM WITH RATE OF 84. IV ACCESS IN DANAE MIDLINE #18 RUNNING NS @ 100 ML/HR. OH CATHETER DRAINING CLEAR, YELLOW URINE- 800 ML. G-TUBE IN PLACE WITH GLUCERNA 1.2 RUNNING @ 55 ML/HR. ALL ORDERS CARRIED OUT. ALL NEEDS MET. PT KEPT CLEAN AND DRY. WOUND CARE DONE. SAFETY PRECAUTIONS IN PLACE: BED IN LOWEST, LOCKED POSITION, SIDERAILS UPx2, AND BRAKES ON. TABLE AND CALL LIGHT WITHIN REACH. WILL ENDORSE TO ONCOMING SHIFT FOR NEIL.
[2021-08-20 07:28] LABS: CALCIUM, SERUM 8.6 mg/dL (8.5-10.1); CREATININE 1.5 mg/dL (0.6-1.3); MAGNESIUM 2.1 mg/dL (1.8-2.4); PHOSPHORUS 3.6 mg/dL (2.5-4.9); POTASSIUM 4.4 mmol/L (3.5-5.1)
--- NOTE | 2021-08-20 07:39 | NUR ---
RN OPENING NOTES PT IN BED, EYES OPEN. AOx1, OBTUNDED. ON MECHANICAL VENT AND TOLERATING WELL. NO SOB NOTED. NO S/SX OF RESPIRATORY DISTRESS NOTED. TELE MONITOR DETECTS SR WITH RATE OF 85. IV ACCESS IN DANAE MIDLINE #18 RUNNING NS @ 100 ML/HR. OH CATHETER DRAINING CLEAR, YELLOW URINE. G-TUBE IN PLACE WITH GLUCERNA 1.2 RUNNING @ 55 ML/HR. SAFETY PRECAUTIONS IN PLACE: BED IN LOWEST, LOCKED POSITION, SIDERAILS UPx2, AND BRAKES ON. TABLE AND CALL LIGHT WITHIN REACH. WILL CONTINUE TO MONITOR / ASSIST
[2021-08-20 08:00] VITALS: BP 127/30
--- NOTE | 2021-08-20 08:04 | NUR ---
WOUND CARE CONSULT: RECEIVED CONSULT FOR SACRAL AREA. DISCUSSED WITH SURGICAL P.A. DEFER TO SURGICAL TEAM CURRENTLY ON CASE. DISCUSSED SKIN PROTECTION WITH NURSING STAFF.
[2021-08-20] MEDS: METOPROLOL TARTRATE 25 MG TABLET GT SCH ×2 (08:57→16:32)
[2021-08-20] MEDS: ASCORBIC ACID 500 MG TABLET GT SCH (08:57)
[2021-08-20] MEDS: PANTOPRAZOLE 40 MG VIAL IV SCH ×2 (08:58→16:32)
[2021-08-20] MEDS: CHLORHEXIDINE GLUCONATE 15 ML UDC MM SCH ×2 (08:58→16:32)
[2021-08-20] MEDS: DOCUSATE SODIUM LIQ 100 MG/10 ML UDC GT SCH ×2 (08:58→16:31)
[2021-08-20] MEDS: AMLODIPINE BESYLATE 5 MG TABLET GT SCH (08:58)
[2021-08-20] MEDS: MULTIVIT W/MINERALS 1 TAB TABLET GT SCH (08:58)
[2021-08-20] MEDS: FERROUS SULFATE UDC 300 MG/5 ML UDC GT SCH (08:58)
[2021-08-20] MEDS: HEPARIN SODIUM, PORCINE 5000 UNITS/1 ML VIAL SQ SCH ×2 (09:00→16:32)
[2021-08-20] MEDS: INSULIN GLARGINE, 100 UNIT/ML CARTRIDGE SQ SCH ×2 (09:11→16:48)
[2021-08-20] MEDS: DAKINS QUARTER STRENGTH (0.125%) 480 ML BOTTLE TOP SCH (09:12)
[2021-08-20] MEDS: PROSOURCE / PROSTAT (PYXIS) 30 ML UDC GT SCH (09:12)
[2021-08-20 12:00] VITALS: BP 120/32
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
[2021-08-20] MEDS: EPOETIN ALFA-EPBX 4,000 UNIT/ML VIAL SQ SCH (14:48)
--- NOTE | 2021-08-20 15:07 | NUR ---
RN NOTE- WOUND CARE COMPLETED BILATERAL FEET PER TREATMENT ORDERS. TOLERATED WELL. DR KILLIAN TO SEE PT REGARDING SURGERY.
[2021-08-20 16:00] VITALS: BP 120/70
[2021-08-20] MEDS: CEFTRIAXONE 2 G in IV D5W 100 ML IV SCH (16:35)
--- NOTE | 2021-08-20 17:05 | NUR ---
RN NOTE- ACCU-CHECK BS 59. HELD LANTUS AT THIS TIME. ORANGE JUICE ADMINISTERED W ONE PACKET SUGAR VIA GT. RECHECK 45 MINUTES
--- NOTE | 2021-08-20 17:57 | NUR ---
RN NOTE - RECHECK ACCU-CHECK BS 88.
--- NOTE | 2021-08-20 18:47 | NUR ---
RN CLOSING NOTES PT IN BED, EYES OPEN. AOx1, OBTUNDED. ON MECHANICAL VENT AND TOLERATING WELL. NO SOB NOTED. NO S/SX OF RESPIRATORY DISTRESS NOTED. TELE MONITOR DETECTS SR WITH RATE OF 85. IV ACCESS IN DANAE MIDLINE #18 RUNNING NS @ 100 ML/HR. OH CATHETER DRAINING CLEAR, YELLOW URINE. TWO LARGE BMS TODAY, UA OUTPUT 1500 CC. G-TUBE IN PLACE WITH GLUCERNA 1.2 RUNNING @ 55 ML/HR. SAFETY PRECAUTIONS IN PLACE: BED IN LOWEST, LOCKED POSITION, SIDERAILS UPx2, AND BRAKES ON. TABLE AND CALL LIGHT WITHIN REACH. WILL CONTINUE TO MONITOR / ASSIST
[2021-08-20 20:00] VITALS: BP 144/70
--- NOTE | 2021-08-20 20:10 | NUR ---
COUNTER HOP OPENING NOTES: RECEIVED PATIENT SLEEP IN BED AROUSABLE TO STIMULI, BED, IN LOW POSITION, CALL LIGHTS WITHIN REACH, NO COMPLAIN OF PAIN AND DISCOMFORT AT THIS TIME, PATIENT ON GTUBE FEEDING OF GLUCERNA 1.2@55ML/HR INFUSING WELL, ON NPO, WITH DANAE ML WITH ONGOING NSS@100ML/HR INFUSING WELL, ON OH CATH- 30CC URINE OUTPUT CLEAR YELLOW, ON TELE MONITORING - SR-82 PATIENT KEPT CLEAN AND DRY ALL NEEDS MET WILL CONTINUE TO MONITOR.
--- NOTE | 2021-08-20 22:55 | NUR ---
RN NOTES: BLOOD SUGAR-78/ NO INSULIN WAS GIVEN PER SLIDING SCALE -OUT OF PARAMETER
[2021-08-21] VITALS (7 sets, daily range): BP systolic 131–154; BP diastolic 59–82
[2021-08-21] MEDS: ALBUTEROL FS 2.5 MG/3 ML VIAL.NEB NEB SCH ×4 (02:12→20:24)
[2021-08-21] MEDS: IPRATROPIUM NEB FS 0.5 MG/2.5 ML AMPUL.NEB NEB SCH ×4 (02:12→20:24)
[2021-08-21] MEDS: GLUCERNA 1.2 1,000 ML BOTTLE GT PRN (04:48)
[2021-08-21 06:37] LABS: BASOPHILS % (AUTO) 0.3 % (0.0-2.0); EOSINOPHILS % (AUTO) 2.4 % (0.0-6.0); HEMATOCRIT 25 % (33-45); HEMOGLOBIN 8.6 g/dL (11.5-14.8); LYMPHOCYTES # (AUTO) 1.2 K/uL (0.8-4.8); LYMPHOCYTES % (AUTO) 13.8 % (20.0-44.0); MEAN CORPUSCULAR HGB CONC 35 g/dl (31.0-36.0); MEAN CORPUSCULAR VOLUME 95 fL (82-100); MONOCYTES # (AUTO) 0.5 K/uL (0.1-1.30); MONOCYTES % (AUTO) 5.2 % (2.0-12.0); NEUTROPHILS % (AUTO) 78.3 % (43.0-81.0); PLATELET COUNT (AUTO) 311 K/uL (150-450); RED BLOOD CELL COUNT(AUTO) 2.62 MIL/uL (4.0-5.2)
--- NOTE | 2021-08-21 06:58 | NUR ---
RENTAL AGENT CLOSING NOTES: PATIENT SLEEP IN BED COMFORTABLY, BE DIN LOW POSITION, CALL LIGHTS WITHIN REACH, NO COMPLAIN OF PAIN AND DISCOMFORT AT THIS TIME, ON MECH VENT SATURATING WELL, NPO ON G TUBE FEEDING OF GLUCERNA 1.2@55ML/HR, ON OH CATH-1300 URINE OUTPUT, YELLOW COLORED, WITH IV LINE AT DANAE ML WITH ONGOING NSS@100ML/HR INFUSING WELL, ON TELE MONITORING SR-99 BILATERAL LOWER EXTREMITY DRESSING CHANGE, PATIENT KEPT CLEAN AND DRY ALL NEED MET ENDORSE TO INCOMING SHIFT.
[2021-08-21 07:08] LABS: CALCIUM, SERUM 8.5 mg/dL (8.5-10.1); CREATININE 1.5 mg/dL (0.6-1.3); MAGNESIUM 1.8 mg/dL (1.8-2.4); PHOSPHORUS 3.8 mg/dL (2.5-4.9); POTASSIUM 4.2 mmol/L (3.5-5.1)
--- NOTE | 2021-08-21 07:30 | NUR ---
FIELD REPRESENTATIVE OPENING NOTES RECEIVED PATIENT SLEEPING IN BED COMFORTABLY. NO S/S OF PAIN AND DISCOMFORT. SAFETY MEASURED INITIATED: BED IN LOW POSITION, CALL LIGHTS WITHIN REACH. ON MECH VENT SATURATING WELL, NPO ON G TUBE FEEDING OF GLUCERNA 1.2@55ML/HR. WITH IV LINE AT DANAE ML WITH ONGOING NSS@100ML/HR INFUSING WELL, DRY AND INTACT. ON TELE MONITORING. BILATERAL LOWER EXTREMITY DRESSING CLEAN, DRY, AND INTACT. WILL CONTINUE TO MONITOR FOR NEIL.
[2021-08-21] MEDS: BLOOD SUGAR DIAGNOSTIC 1 EACH STRIP VI SCH ×4 (08:11→22:12)
[2021-08-21] MEDS: IV NS 0.9% 1,000 ML IV PRN ×2 (09:45→19:54)
[2021-08-21] MEDS: DOCUSATE SODIUM LIQ 100 MG/10 ML UDC GT SCH ×2 (10:27→17:02)
[2021-08-21] MEDS: CHLORHEXIDINE GLUCONATE 15 ML UDC MM SCH ×2 (10:27→17:01)
[2021-08-21] MEDS: MULTIVIT W/MINERALS 1 TAB TABLET GT SCH (10:27)
[2021-08-21] MEDS: AMLODIPINE BESYLATE 5 MG TABLET GT SCH (10:27)
[2021-08-21] MEDS: PANTOPRAZOLE 40 MG VIAL IV SCH ×2 (10:28→17:02)
[2021-08-21] MEDS: ASCORBIC ACID 500 MG TABLET GT SCH (10:28)
[2021-08-21] MEDS: METOPROLOL TARTRATE 25 MG TABLET GT SCH ×2 (10:28→17:01)
[2021-08-21] MEDS: FERROUS SULFATE UDC 300 MG/5 ML UDC GT SCH (10:28)
[2021-08-21] MEDS: HEPARIN SODIUM, PORCINE 5000 UNITS/1 ML VIAL SQ SCH ×2 (10:29→17:06)
[2021-08-21] MEDS: INSULIN GLARGINE, 100 UNIT/ML CARTRIDGE SQ SCH ×2 (10:33→17:00)
[2021-08-21] MEDS: DAKINS QUARTER STRENGTH (0.125%) 480 ML BOTTLE TOP SCH (10:37)
[2021-08-21] MEDS: PROSOURCE / PROSTAT (PYXIS) 30 ML UDC GT SCH (10:37)
--- NOTE | 2021-08-21 18:34 | NUR ---
SALES AND SERVICE ASSOCIATE CLOSING NOTES PATIENT SLEEPING IN BED COMFORTABLY. NO S/S OF PAIN AND DISCOMFORT. SAFETY MEASURED INITIATED: BED IN LOW POSITION, CALL LIGHTS WITHIN REACH. ON MECH VENT SATURATING WELL, NPO ON G TUBE FEEDING OF GLUCERNA 1.2@55ML/HR. WITH IV LINE AT DANAE ML WITH ONGOING NSS@100ML/HR INFUSING WELL, DRY AND INTACT. ON TELE MONITORING. BILATERAL LOWER EXTREMITY DRESSING CLEAN, DRY, AND INTACT. WILL ENDORSE TO INCOMING FOR NEIL.
--- NOTE | 2021-08-21 19:32 | NUR ---
SPEAKER WIRER OPENING NOTES RECEIVED PT LYING IN BED ASLEEP. RESPONSIVE TO LIGHT PAIN. NO S/S OF PAIN AND DISCOMFORT NOTED. HAS TRACHEOSTOMY CONNECTED TO [facility] VENT SATURATING AT 100%. BREATHING EVEN AND NON-LABORED. ON TELE MONITOR READING SINUS RHYTHM AT 84 BPM. ON G-TUBE FEEDING OF GLUCERNA 1.2 AT 55 ML/HR. HAS LEFT UPPER ARM MIDLINE WITH NS RUNNING AT 100 ML/HR. NO S/S OF INFILTRATION NOTED. SAFETY PRECAUTIONS IN PLACE. WILL CONTINUE PLAN OF CARE.
[2021-08-21] MEDS: ACETAMINOPHEN 325 MG TABLET PO PRN (23:08)
--- NOTE | 2021-08-21 23:08 | NUR ---
CENTRAL STATION OPERATOR NOTES PT NOTED W/ MILD FEVER AT 100.6. PRN TYLENOL ADMINISTERED. WILL CONT. TO MONITOR.
[2021-08-22] VITALS: BP 142/63
[2021-08-22] MEDS: IPRATROPIUM NEB FS 0.5 MG/2.5 ML AMPUL.NEB NEB SCH ×4 (01:35→20:09)
[2021-08-22] MEDS: ALBUTEROL FS 2.5 MG/3 ML VIAL.NEB NEB SCH ×4 (01:35→20:09)
[2021-08-22] MEDS: MORPHINE SULFATE INJ 2 MG/ML DISP.SYRIN IV PRN (03:44)
[2021-08-22 04:00] VITALS: BP 137/66
--- NOTE | 2021-08-22 04:28 | NUR ---
AUTOMOTIVE TECHNICIAN INSTRUCTOR NOTES PT NOTED WITH PAIN 8/10 USING MEMBRENO-ZENDEJAS SCALE. INCREASE HR AT 111 BPM. ADMINISTERED PRN MORPHINE SO4. WILL CONT. TO MONITOR.
[2021-08-22] MEDS: IV NS 0.9% 1,000 ML IV PRN ×2 (05:29→16:18)
--- NOTE | 2021-08-22 06:32 | NUR ---
MASONRY INSTALLER CLOSING NOTES PT LYING IN BED WITH EYES CLOSED. RESPONSIVE TO LIGHT PAIN. OPENS EYES, OBTUNDED. HAS TRACHEOSTOMY CONNECTED TO [facility] VENT SATURATING AT 100%. NO SOB OR NOTED. NOT IN APPARENT DISTRESS. ON TELE MONITOR READING SINUS RHYTHM AT 93 BPM. G-TUBE FEEDING OF GLUCERNA 1.2 AT 55 ML/HR CURRENTLY OFF, 1100 ML COMPLETED AT 0300. HAS LEFT UPPER ARM MIDLINE WITH NS RUNNING AT 100 ML/HR. INTACT, PATENT AND FLUSHING. WOUND CARE RENDERED. KEPT DRY AND COMFORTABLE. SAFETY MEASURES IN PLACE: BED LOW AND LOCKED, SIDE RAILS UP X3, CALL LIGHT WITHIN REACH.
[2021-08-22 06:42] LABS: BASOPHILS % (AUTO) 0.5 % (0.0-2.0); EOSINOPHILS % (AUTO) 3.2 % (0.0-6.0); HEMATOCRIT 25 % (33-45); HEMOGLOBIN 8.2 g/dL (11.5-14.8); LYMPHOCYTES # (AUTO) 1.6 K/uL (0.8-4.8); LYMPHOCYTES % (AUTO) 22.2 % (20.0-44.0); MEAN CORPUSCULAR HGB CONC 33 g/dl (31.0-36.0); MEAN CORPUSCULAR VOLUME 99 fL (82-100); MONOCYTES # (AUTO) 0.4 K/uL (0.1-1.30); MONOCYTES % (AUTO) 6.3 % (2.0-12.0); NEUTROPHILS # (AUTO) 4.7 K/uL (1.8-8.9); NEUTROPHILS % (AUTO) 67.8 % (43.0-81.0); PLATELET COUNT (AUTO) 289 K/uL (150-450); RED BLOOD CELL COUNT(AUTO) 2.51 MIL/uL (4.0-5.2)
[2021-08-22] MEDS: BLOOD SUGAR DIAGNOSTIC 1 EACH STRIP VI SCH ×4 (06:56→21:36)
[2021-08-22 07:30] LABS: CHLORIDE 109 mmol/L (98-107); CREATININE 1.5 mg/dL (0.6-1.3); GLUCOSE 118 mg/dL (74-106); POTASSIUM 4.3 mmol/L (3.5-5.1); SODIUM SERUM 136 mmol/L (136-145); UREA NITROGEN, BLOOD 29 mg/dL (7-18)
[2021-08-22 08:00] VITALS: BP 161/79
[2021-08-22] MEDS: PANTOPRAZOLE 40 MG VIAL IV SCH ×2 (08:39→16:14)
[2021-08-22] MEDS: MULTIVIT W/MINERALS 1 TAB TABLET GT SCH (08:39)
[2021-08-22] MEDS: AMLODIPINE BESYLATE 5 MG TABLET GT SCH (08:39)
[2021-08-22] MEDS: FERROUS SULFATE UDC 300 MG/5 ML UDC GT SCH (08:39)
[2021-08-22] MEDS: PROSOURCE / PROSTAT (PYXIS) 30 ML UDC GT SCH (08:40)
[2021-08-22] MEDS: METOPROLOL TARTRATE 25 MG TABLET GT SCH ×2 (08:40→16:14)
[2021-08-22] MEDS: CHLORHEXIDINE GLUCONATE 15 ML UDC MM SCH ×2 (08:40→16:14)
[2021-08-22] MEDS: ASCORBIC ACID 500 MG TABLET GT SCH (08:40)
[2021-08-22] MEDS: DOCUSATE SODIUM LIQ 100 MG/10 ML UDC GT SCH ×2 (08:40→16:14)
[2021-08-22] MEDS: HEPARIN SODIUM, PORCINE 5000 UNITS/1 ML VIAL SQ SCH (08:42)
[2021-08-22] MEDS: INSULIN GLARGINE, 100 UNIT/ML CARTRIDGE SQ SCH ×2 (08:44→17:00)
[2021-08-22] MEDS: DAKINS QUARTER STRENGTH (0.125%) 480 ML BOTTLE TOP SCH (08:53)
[2021-08-22 11:03] LABS: CALCIUM, SERUM 8.8 mg/dL (8.5-10.1); CARBON DIOXIDE 13 mmol/L (21-32)
[2021-08-22 12:00] VITALS: BP 168/75
[2021-08-22] MEDS: GLUCERNA 1.2 1,000 ML BOTTLE GT PRN (13:51)
[2021-08-22 15:50] VITALS: BP 146/77
[2021-08-22] MEDS: EPOETIN ALFA-EPBX 4,000 UNIT/ML VIAL SQ SCH (16:04)
--- NOTE | 2021-08-22 17:00 | NUR ---
MACHINE MILKER NOTES ARGENTINA CHÁVEZ ADMIN, BS WNL
--- NOTE | 2021-08-22 18:49 | NUR ---
PODIATRIST ASSISTANT CLOSING NOTES PATIENT SLEEPING IN BED COMFORTABLY. NO S/S OF PAIN AND DISCOMFORT. SAFETY MEASURED INITIATED: BED IN LOW POSITION, CALL LIGHTS WITHIN REACH. ON MECH VENT SATURATING WELL, NPO ON G TUBE FEEDING OF GLUCERNA 1.2@55ML/HR. WITH IV LINE AT DANAE ML WITH ONGOING NSS@100ML/HR INFUSING WELL, DRY AND INTACT. ON TELE MONITORING. BILATERAL LOWER EXTREMITY DRESSING CLEAN, DRY, AND INTACT. WILL ENDORSE TO INCOMING SHIFT FOR NEIL.
--- NOTE | 2021-08-22 19:30 | NUR ---
HORSES OR MULES TEAMSTER OPENING NOTES RECEIVED PT LYING IN BED ASLEEP, RESPONDS TO LIGHT PAIN. OBTUNDED AND OPENS EYES. NO PAIN OR DISCOMFORT NOTED. HAS TRACH CONNECTED TO MECHANICAL VENT SATURATING AT 100%. NO APPARENT DISTRESS NOTED. ON TELE MONITOR READING SINUS RHYTHM AT 86 BPM. HAS LEFT UPPER ARM MIDLINE WITH NS RUNNING AT 100 ML/HR. NO S/S OF INFILTRATION NOTED. HAS G-TUBE FEEDING OF GLUCERNA 1.2 RUNNING AT 55 ML/HR. HAS OH CATHETER DRAINING CLEAR YELLOW URINE TO BAG VIA GRAVITY. WOUND DRESSINGS DRY AND INTACT. SAFETY PRECAUTIONS IN PLACE. WILL CONTINUE PLAN OF CARE.
[2021-08-22 20:00] VITALS: BP 145/57
[2021-08-23] VITALS: BP 144/60
[2021-08-23] MEDS: IV NS 0.9% 1,000 ML IV PRN ×3 (01:41→22:56)
[2021-08-23] MEDS: IPRATROPIUM NEB FS 0.5 MG/2.5 ML AMPUL.NEB NEB SCH ×4 (01:52→19:57)
[2021-08-23] MEDS: ALBUTEROL FS 2.5 MG/3 ML VIAL.NEB NEB SCH ×4 (01:52→19:57)
[2021-08-23 04:00] VITALS: BP 155/70
[2021-08-23] MEDS: MORPHINE SULFATE INJ 2 MG/ML DISP.SYRIN IV PRN (04:20)
--- NOTE | 2021-08-23 04:20 | NUR ---
SECURITY FLEX UTILITY OFFICER NOTES FACIAL GRIMACING AND TACHYCARDIA AT 111 NOTED. PRN MORPHINE SO4 ADMINISTERED. TOLERATED WELL.
--- NOTE | 2021-08-23 06:32 | NUR ---
DIRECTOR OF CLINICAL TRIALS CLOSING NOTES PT LYING IN BED AWAKE. RESPONDS TO LIGHT PAIN. OBTUNDED AND OPENS EYES. NOT IN APPARENT DISTRESS. HAS TRACH CONNECTED TO MECHANICAL VENT SATURATING AT 100%. BREATHING EVEN AND NON-LABORED. ON TELE MONITOR READING SINUS RHYTHM AT 94 BPM. HAS LEFT UPPER ARM MIDLINE WITH NS RUNNING AT 100 ML/HR. INTACT, PATENT AND FLUSHING. HAS G-TUBE FEEDING OF GLUCERNA 1.2 CURRENTLY OFF. 1100 ML DAILY REQUIREMENT COMPLETED. HAS OH CATHETER DRAINING CLEAR YELLOW URINE TO BAG VIA GRAVITY. WOUND CARE RENDERED. ALL NEEDS ATTENDED. SAFETY MEASURES IN PLACE: BED LOW AND LOCKED, SIDE RAILS UP X3, CALL LIGHT WITHIN REACH.
[2021-08-23] MEDS: BLOOD SUGAR DIAGNOSTIC 1 EACH STRIP VI SCH ×4 (06:50→22:34)
[2021-08-23] MEDS: INSULIN REGULAR, HUMAN 100 UNIT/ML 3 ML VIAL SQ PRN (06:52)
--- NOTE | 2021-08-23 07:40 | NUR ---
NETWORK ENGINEER OPENING NOTE Patient in bed, obtunded and opens eyes. On mechanical ventilator with the following settings: Portex #8, AC 18, TV 550, FiO2 40%, PEEP 5. Tolerating current settings. G-tube in place running Glucerna 1.2 at 55 ml/hr. Mcelroy catheter in place draining to a yellow colored urine. On tel monitoring showing SR, HR on the 90's. Safety precautions in place: bed in low, locked position; siderails up x 2; call light within reach. Will continue to monitor.
[2021-08-23] MEDS: INSULIN GLARGINE, 100 UNIT/ML CARTRIDGE SQ SCH ×2 (09:00→17:00)
--- NOTE | 2021-08-23 09:00 | NUR ---
RN NOTE Blood glucose is 111, Lantus held per protocol.
[2021-08-23] MEDS: PROSOURCE / PROSTAT (PYXIS) 30 ML UDC GT SCH (09:51)
[2021-08-23] MEDS: ASCORBIC ACID 500 MG TABLET GT SCH (09:52)
[2021-08-23] MEDS: AMLODIPINE BESYLATE 5 MG TABLET GT SCH (09:52)
[2021-08-23] MEDS: MULTIVIT W/MINERALS 1 TAB TABLET GT SCH (09:52)
[2021-08-23] MEDS: CHLORHEXIDINE GLUCONATE 15 ML UDC MM SCH ×2 (09:52→17:06)
[2021-08-23] MEDS: DOCUSATE SODIUM LIQ 100 MG/10 ML UDC GT SCH ×2 (09:52→17:06)
[2021-08-23] MEDS: PANTOPRAZOLE 40 MG VIAL IV SCH ×2 (09:52→17:06)
[2021-08-23] MEDS: FERROUS SULFATE UDC 300 MG/5 ML UDC GT SCH (09:52)
[2021-08-23] MEDS: DAKINS QUARTER STRENGTH (0.125%) 480 ML BOTTLE TOP SCH (09:53)
[2021-08-23] MEDS: METOPROLOL TARTRATE 25 MG TABLET GT SCH ×2 (09:53→17:06)
[2021-08-23] MEDS: GLUCERNA 1.2 1,000 ML BOTTLE GT PRN (12:54)
--- NOTE | 2021-08-23 17:00 | NUR ---
RN NOTE Blood glucose is 116, Lantus held per protocol.
--- NOTE | 2021-08-23 19:00 | NUR ---
RN NOTE Tried calling daughter and son to obtain telephone consent for Left AKA, no answer. Left voicemail message.
--- NOTE | 2021-08-23 19:40 | NUR ---
TELE/RN OPENING NOTE RECEIVED PATIENT RESTING IN BED. OBTUNDED AT BASELINE. NO S/SX OF PAIN NOTED. CONTINUES ON MECHANICAL VENT WITH PATIENT TOLERATING SETTINGS WELL. IV ACCESS TO LEFT UPPER ARM MIDLINE #18G INTACT AND PATENT. CONTINUES ON IVF NS @ 100ML/HR. CONTINUES ON TF GLUCERNA 1.2 @ 55ML/HR X 20HRS. NO RESIDUAL NOTED AT THIS TIME. CONTINUES ON OH CATHETER DRAINING CLEAR, YELLOW URINE TO GRAVITY. TELE MONITOR IN PLACE WITH CURRENT READING SR. CALL PLACED TO FAMILY REGARDING CONSENT FOR LEFT AKA. NO RETURN CALL YET. ASPIRATION, FALL AND SAFETY PRECAUTIONS MAINTAINED. ALL NEEDS ATTENDED TO AT THIS TIME.
--- NOTE | 2021-08-23 19:53 | NUR ---
RAILROAD WHEELS AND AXLE INSPECTOR CLOSING NOTE Patient in bed, obtunded and opens eyes. On mechanical ventilator with the following settings: Portex #8, AC 18, TV 550, FiO2 40%, PEEP 5. Tolerating current settings. G-tube in place running Glucerna 1.2 at 55 ml/hr. Mcelroy catheter in place draining to a yellow colored urine with an output of 1200cc. On tele monitoring showing SR, HR on the 70's. Turned and repositioned, as tolerated. Safety precautions maintained: bed in low, locked position; siderails up x 2; call light within reach. Will endorse to night worker nurse for NEIL.
[2021-08-23 20:46] VITALS: BP 140/77
[2021-08-24] VITALS: BP 146/74
--- NOTE | 2021-08-24 | NUR ---
TELE/RN NOTE HOLDING TUBE FEED STARTING AT 00:00 FOR PLANNED SURGICAL PROCEDURE TODAY. NO RESIDUAL NOTED AT THIS TIME.
[2021-08-24] MEDS: IPRATROPIUM NEB FS 0.5 MG/2.5 ML AMPUL.NEB NEB SCH ×4 (01:32→19:59)
[2021-08-24] MEDS: ALBUTEROL FS 2.5 MG/3 ML VIAL.NEB NEB SCH ×4 (01:32→19:59)
[2021-08-24 04:00] VITALS: BP 144/68
[2021-08-24 06:09] LABS: CALCIUM, SERUM 8.3 mg/dL (8.5-10.1); CREATININE 1.5 mg/dL (0.6-1.3); POTASSIUM 4.3 mmol/L (3.5-5.1)
--- NOTE | 2021-08-24 06:20 | NUR ---
TELE/RN CLOSING NOTE PATIENT CURRENTLY RESTING IN BED. OBTUNDED AT BASELINE. NO S/SX OF PAIN NOTED. CONTINUES ON MECHANICAL VENT WITH PATIENT TOLERATING SETTINGS WELL. IV ACCESS TO LEFT UPPER ARM MIDLINE #18G INTACT AND PATENT. CONTINUES ON IVF NS @ 100ML/HR. HOLDING TUBE FEEDING SINCE MIDNIGHT FOR POSSIBLE SURGICAL PROCEDURE TODAY. CONTINUES ON OH CATHETER DRAINING CLEAR, YELLOW URINE TO GRAVITY. TELE MONITOR IN PLACE WITH CURRENT READING SR. NO CALL BACK FROM FAMILY REGARDING CONSENTS FOR PROCEDURE. ASPIRATION, FALL AND SAFETY PRECAUTIONS MAINTAINED. WILL ENDORSE PLAN OF CARE TO ONCOMING SHIFT.
[2021-08-24] MEDS: BLOOD SUGAR DIAGNOSTIC 1 EACH STRIP VI SCH ×4 (06:36→22:05)
[2021-08-24 06:38] LABS: BASOPHILS % (AUTO) 0.6 % (0.0-2.0); EOSINOPHILS % (AUTO) 3.9 % (0.0-6.0); HEMATOCRIT 26 % (33-45); HEMOGLOBIN 8.5 g/dL (11.5-14.8); LYMPHOCYTES # (AUTO) 1.9 K/uL (0.8-4.8); MEAN CORPUSCULAR HGB CONC 33 g/dl (31.0-36.0); MEAN CORPUSCULAR VOLUME 98 fL (82-100); MONOCYTES # (AUTO) 0.4 K/uL (0.1-1.30); MONOCYTES % (AUTO) 5.2 % (2.0-12.0); NEUTROPHILS # (AUTO) 4.4 K/uL (1.8-8.9); NEUTROPHILS % (AUTO) 63.3 % (43.0-81.0); PLATELET COUNT (AUTO) 284 K/uL (150-450); RED BLOOD CELL COUNT(AUTO) 2.62 MIL/uL (4.0-5.2); WHITE BLOOD COUNT (AUTO) 6.9 K/uL (4.3-11.0)
[2021-08-24 08:04] VITALS: BP 150/77
--- NOTE | 2021-08-24 08:30 | NUR ---
ms rn received on bed, non verbal patient, ventilator dependent, bilateral upper and lower extremities are contracted,sarcal and bilateral heels wound w/ dressing,kaur to gravity w/ yellowish urine output,repositioned for comfort,all needs attended.
--- NOTE | 2021-08-24 08:47 | NUR ---
spoke with pt's son Janes [phone] regarding surgery consent, Janes refused above knee amputation and not willing to give consent. OR informed about refusal and will call dr. Culver as well.
[2021-08-24] MEDS: INSULIN GLARGINE, 100 UNIT/ML CARTRIDGE SQ SCH ×2 (09:00→17:00)
--- NOTE | 2021-08-24 09:00 | NUR ---
ms rn son refused above knee amputation, called dr. lara office, spoke w/ candy will contact
--- NOTE | 2021-08-24 09:55 | NUR ---
ms ortiz npo at this time, patient will be for surgery upon getting consent from the son.
[2021-08-24 10:00] VITALS: BP 146/47
[2021-08-24] MEDS: IV NS 0.9% 1,000 ML IV PRN ×2 (10:01→20:33)
--- NOTE | 2021-08-24 11:00 | NUR ---
ms ortiz due meds given, tolerated well via g tube.
--- NOTE | 2021-08-24 11:04 | NUR ---
ms diana bs- 142- lantus was not given , due to patient has been npo.
[2021-08-24] MEDS: CHLORHEXIDINE GLUCONATE 15 ML UDC MM SCH ×2 (11:12→17:52)
[2021-08-24] MEDS: FERROUS SULFATE UDC 300 MG/5 ML UDC GT SCH (11:12)
[2021-08-24] MEDS: PANTOPRAZOLE 40 MG VIAL IV SCH ×2 (11:12→17:51)
[2021-08-24] MEDS: ASCORBIC ACID 500 MG TABLET GT SCH (11:18)
[2021-08-24] MEDS: METOPROLOL TARTRATE 25 MG TABLET GT SCH ×2 (11:18→17:52)
[2021-08-24] MEDS: MULTIVIT W/MINERALS 1 TAB TABLET GT SCH (11:18)
[2021-08-24] MEDS: DOCUSATE SODIUM LIQ 100 MG/10 ML UDC GT SCH ×2 (11:19→17:52)
[2021-08-24] MEDS: DAKINS QUARTER STRENGTH (0.125%) 480 ML BOTTLE TOP SCH (11:19)
[2021-08-24] MEDS: AMLODIPINE BESYLATE 5 MG TABLET GT SCH (11:24)
[2021-08-24] MEDS: PROSOURCE / PROSTAT (PYXIS) 30 ML UDC GT SCH (11:25)
--- NOTE | 2021-08-24 13:00 | NUR ---
ms rn bs - 138-coverage not given, patient has a hx of hypoglycemia always.
[2021-08-24 16:00] VITALS: BP 159/60
[2021-08-24] MEDS: GLUCERNA 1.2 1,000 ML BOTTLE GT PRN (16:03)
[2021-08-24] MEDS: EPOETIN ALFA-EPBX 4,000 UNIT/ML VIAL SQ SCH (16:03)
--- NOTE | 2021-08-24 16:20 | NUR ---
ms rn pm care done w/ mulling machine operator, dressing to sacral and bilateral heels done,all needs attended.
--- NOTE | 2021-08-24 18:31 | NUR ---
ms rn on bed no distress noted.
--- NOTE | 2021-08-24 19:30 | NUR ---
TELE/RN OPENING NOTE RECEIVED PATIENT RESTING IN BED. OBTUNDED AT BASELINE. NO S/SX OF PAIN NOTED. CONTINUES ON MECHANICA VENT (PORTEX 8 AC 18 TV 550 FI02 40% PEEP 5) WITH PATIENT TOLERATING SETTINGS WELL. IV ACCESS TO LEFT UPPER ARM MIDLINE #18G INTACT AND PATENT. CONTINUES ON IVF NS @ 100ML/HR. CONTINUES ON GT FEED GLUCERNA 1.2 @ 55ML/HR X 20HRS. NO RESIDUAL NOTED AT THIS TIME. OH CATHETER IN PLACE DRAINING CLEAR, YELLOW URINE TO GRAVITY. ASPIRATION, FALL AND SAFETY PRECAUTIONS MAINTAINED. ALL NEEDS ATTENDED TO AT THIS TIME.
[2021-08-24 19:57] VITALS: BP 132/73
[2021-08-24] MEDS: *INSULIN REGULAR(HUMULIN R)HUM 100 UNIT/ML VIAL SQ PRN (22:07)
[2021-08-25 00:20] VITALS: BP 111/55
[2021-08-25] MEDS: IPRATROPIUM NEB FS 0.5 MG/2.5 ML AMPUL.NEB NEB SCH ×4 (01:40→19:51)
[2021-08-25] MEDS: ALBUTEROL FS 2.5 MG/3 ML VIAL.NEB NEB SCH ×4 (01:40→19:51)
[2021-08-25 04:00] VITALS: BP_SYST 125; BP_SYST 159; BP_DIAS 52; BP_DIAS 67
[2021-08-25] MEDS: IV NS 0.9% 1,000 ML IV PRN ×2 (05:24→20:45)
--- NOTE | 2021-08-25 06:30 | NUR ---
TELE/RN CLOSING NOTE PATIENT CURRENTLY RESTING IN BED. OBTUNDED AT BASELINE. NO S/SX OF PAIN NOTED. CONTINUES ON MECHANICA VENT (PORTEX 8 AC 18 TV 550 FI02 40% PEEP 5) WITH PATIENT TOLERATING SETTINGS WELL. IV ACCESS TO LEFT UPPER ARM MIDLINE #18G INTACT AND PATENT. CONTINUES ON IVF NS @ 100ML/HR. CONTINUES ON GT FEED GLUCERNA 1.2 @ 55ML/HR X 20HRS. NO RESIDUAL NOTED AT THIS TIME. OH CATHETER IN PLACE DRAINING CLEAR, YELLOW URINE TO GRAVITY. ASPIRATION, FALL AND SAFETY PRECAUTIONS MAINTAINED. WILL ENDORSE PLAN OF CARE TO ONCOMING SHIFT RN.
[2021-08-25] MEDS: BLOOD SUGAR DIAGNOSTIC 1 EACH STRIP VI SCH ×4 (06:42→22:35)
--- NOTE | 2021-08-25 07:30 | NUR ---
ms rn received on bed, awake,non verbal, vent dependent patient, not in any form of distress, respirations even and unlabored, no sob noted, kaur to gravity bag w/ yellowish urine output, g tube intact w/ feeding running at 55ml/hr,tolerated well w/o residual.
[2021-08-25 08:00] VITALS: BP 135/60
[2021-08-25] MEDS: INSULIN GLARGINE, 100 UNIT/ML CARTRIDGE SQ SCH ×2 (09:00→17:00)
--- NOTE | 2021-08-25 10:00 | NUR ---
ms rn bs - 133 - lantus not given ,patient has history og hypoglycemia, no distress noted.
--- NOTE | 2021-08-25 10:00 | NUR ---
ms ortiz due meds given, tolerated well via g tube.
[2021-08-25] MEDS: DOCUSATE SODIUM LIQ 100 MG/10 ML UDC GT SCH ×2 (10:01→17:13)
[2021-08-25] MEDS: AMLODIPINE BESYLATE 5 MG TABLET GT SCH (10:01)
[2021-08-25] MEDS: PANTOPRAZOLE 40 MG VIAL IV SCH ×2 (10:01→17:14)
[2021-08-25] MEDS: MULTIVIT W/MINERALS 1 TAB TABLET GT SCH (10:01)
[2021-08-25] MEDS: ASCORBIC ACID 500 MG TABLET GT SCH (10:02)
[2021-08-25] MEDS: CHLORHEXIDINE GLUCONATE 15 ML UDC MM SCH ×2 (10:02→17:13)
[2021-08-25] MEDS: PROSOURCE / PROSTAT (PYXIS) 30 ML UDC GT SCH (10:02)
[2021-08-25] MEDS: METOPROLOL TARTRATE 25 MG TABLET GT SCH ×2 (10:02→17:15)
[2021-08-25] MEDS: DAKINS QUARTER STRENGTH (0.125%) 480 ML BOTTLE TOP SCH (10:03)
[2021-08-25] MEDS: FERROUS SULFATE UDC 300 MG/5 ML UDC GT SCH (10:04)
[2021-08-25 12:00] VITALS: BP 130/60
--- NOTE | 2021-08-25 13:00 | NUR ---
ms rn bs - 138 - coverage not given, patient has history of hypoglycemia, a sudden drop once given, coverage.
[2021-08-25 16:00] VITALS: BP 136/87
--- NOTE | 2021-08-25 18:55 | NUR ---
ms rn on bed, no distress noted,all needs attended.
[2021-08-25 20:00] VITALS: BP 144/52
[2021-08-25] MEDS: GLUCERNA 1.2 1,000 ML BOTTLE GT PRN (20:45)
--- NOTE | 2021-08-25 21:45 | NUR ---
house rn Opening Note Pt received in bed, obtunded, opens eyes. On mechanical vent Portex #8, TV 550, FiO2 40%, PEEP 5; pt tolerating vent settings well; no s/s of resp distress, no SOB noted, non-labored and equal breathing; O2sat 100%. Attached to external monitor SR with HR 88. Pt noted to have dressings applied on bilateral feet; will reinforce as needed. DANAE midline 18G intact and patent; no s/s of infiltration, flushes well without resistance. GT dressing clean, dry, intact, and patent with Glucerna running at 55 ml/hr; tolerating feeding well; no N/V/D at the moment. Bed in lowest position, call light within reach, side rails up x3. Will continue to monitor throughout the night.
[2021-08-25] MEDS: *INSULIN REGULAR(HUMULIN R)HUM 100 UNIT/ML VIAL SQ PRN (22:37)
[2021-08-26] VITALS: BP 154/48
[2021-08-26] MEDS: ALBUTEROL FS 2.5 MG/3 ML VIAL.NEB NEB SCH ×4 (02:11→20:15)
[2021-08-26] MEDS: IPRATROPIUM NEB FS 0.5 MG/2.5 ML AMPUL.NEB NEB SCH ×4 (02:11→20:15)
[2021-08-26] MEDS: IV NS 0.9% 1,000 ML IV PRN (05:38)
--- NOTE | 2021-08-26 06:39 | NUR ---
hosting engineer Closing Note Pt in bed, obtunded, opens eyes, non-verbal. Remains on same vent settings; pt continues to tolerate vent settings well; no s/s of resp distress, no SOB noted, non-labored and equal breathing; O2sat 100% throughout the whole night. Attached to external monitor SR with HR 91. Wound dressings on bilateral feet are clean, dry, and intact. Dressing to sacral wound changed. DANAE midline 18G intact and patent; no s/s of infiltration, flushes well without resistance; NS at 100 ml/hr. GT dressing clean, dry, intact, and patent with Glucerna running at 55 ml/hr; tolerating feeding well; no N/V/D throughout shift; no residuals noted. Bed in lowest position, call light within reach, side rails up x3. Will endorse to dayshift nurse to continue care.
--- NOTE | 2021-08-26 07:00 | NUR ---
EXERCISE SCIENCE INTERNSHIP OPENING NOTES PATIENT LAYING IN BED, OBTUNDED, NON-VERBAL, ON VENT WITH THE FOLLOWING SETTINGS: TV 550, FI02 40%, PEEP 5. PATIENT TOLERATING VENT SETTINGS WELL WITH NO S/S RESPIRATORY DISTRESS. ON TELE MONITOR READING NSR 88. DANAE MIDLINE 18 G CLEAN, INTACT, WITH NS @ 100 ML/HR. GLUCERNA 1.2 SHERRY FEEDING VIA G-TUBE @ 55 ML/HR, TOLERATING WELL. SAFETY MEASURES IN PLACE: BED IN LOWEST LOCKED POSITION, SIDE RAILS UP X 3, CALL LIGHT WITHIN REACH. WILL CONTINUE TO MONITOR.
[2021-08-26] MEDS: BLOOD SUGAR DIAGNOSTIC 1 EACH STRIP VI SCH ×4 (07:53→23:34)
[2021-08-26] MEDS: INSULIN REGULAR, HUMAN 100 UNIT/ML 3 ML VIAL SQ PRN ×2 (07:55→13:20)
[2021-08-26] MEDS: METOPROLOL TARTRATE 25 MG TABLET GT SCH ×2 (08:21→16:27)
[2021-08-26] MEDS: FERROUS SULFATE UDC 300 MG/5 ML UDC GT SCH (08:21)
[2021-08-26] MEDS: DOCUSATE SODIUM LIQ 100 MG/10 ML UDC GT SCH ×2 (08:21→16:28)
[2021-08-26] MEDS: PANTOPRAZOLE 40 MG VIAL IV SCH ×2 (08:22→16:28)
[2021-08-26] MEDS: AMLODIPINE BESYLATE 5 MG TABLET GT SCH (08:22)
[2021-08-26] MEDS: MULTIVIT W/MINERALS 1 TAB TABLET GT SCH (08:22)
[2021-08-26] MEDS: ASCORBIC ACID 500 MG TABLET GT SCH (08:22)
[2021-08-26] MEDS: CHLORHEXIDINE GLUCONATE 15 ML UDC MM SCH ×2 (08:22→16:27)
[2021-08-26] MEDS: INSULIN GLARGINE, 100 UNIT/ML CARTRIDGE SQ SCH ×2 (08:34→17:00)
[2021-08-26] MEDS: PROSOURCE / PROSTAT (PYXIS) 30 ML UDC GT SCH (08:34)
[2021-08-26] MEDS: DAKINS QUARTER STRENGTH (0.125%) 480 ML BOTTLE TOP SCH (08:35)
--- NOTE | 2021-08-26 19:00 | NUR ---
BONDING SUPERVISOR CLOSING NOTES PATIENT LAYING IN BED, OBTUNDED, NON-VERBAL, ON VENT WITH THE FOLLOWING SETTINGS: TV 550, FI02 40%, PEEP 5. PATIENT TOLERATING VENT SETTINGS WELL WITH NO S/S RESPIRATORY DISTRESS. ON TELE MONITOR READING NSR 86. DANAE MIDLINE 18 G CLEAN, INTACT, WITH NS @ 100 ML/HR. GLUCERNA 1.2 SHERRY FEEDING VIA G-TUBE @ 55 ML/HR, TOLERATING WELL. SAFETY MEASURES IN PLACE: BED IN LOWEST LOCKED POSITION, SIDE RAILS UP X 3, CALL LIGHT WITHIN REACH. ALL NEEDS MET. WILL ENDORSE TO JOINERY SETTER OUT FOR NEIL.
--- NOTE | 2021-08-26 19:30 | NUR ---
SOFTWARE ENGINEER DEVELOPER OPENING NOTES RECEIVED PATIENT RESTING IN BED; OBTUNDED AND OPENS EYES. ON MECHANICAL VENT WITH SETTINGS FOLLOWS : PORTEX 8, TV 550, FiO2 40%, PEEP 5, TOLERATING SETTINGS WELL. WITH IV ACCESS ON LEFT UPPER ARM MIDLINE G#18; INTACT AND PATENT INFUSING WITH NS @ 100ML/HR; FLUSHES WELL. WITH G-TUBE FEEDING OF GLUCERNA 1.2 REGULATED @ 55ML/HR X 20HRS. NO RESIDUAL NOTED AT THIS TIME. WITH OH CATHETER IN PLACE ATTACHED TO UROBAG DRAINING TO CLEAR YELLOW URINE TO GRAVITY. SAFETY AND ASPIRATION MEASURES IMPLEMENTED: HEAD OF BED ELEVATED TO 30 DEGREES, CALL LIGHT WITHIN REACH, SIDE RAILS UP X3, BED IN LOWEST LOCKED POSITION. WILL CONTINUE TO MONITOR
[2021-08-26 20:00] VITALS: BP 122/52
[2021-08-26 20:15] VITALS: BP 122/52
--- NOTE | 2021-08-26 23:20 | NUR ---
MONOTYPE MACHINIST NOTE BLOOD SUGAR CHECKED WITH RESULT OF 136 MG/DL; 2UNITS OF INSULIN GIVEN SQ ORDERED PER SLIDING SCALE. WILL MONITOR FOR SIGNS/SYMPTOMS OF HYPO/HYPERGLYCEMIA.
[2021-08-27] VITALS (8 sets, daily range): BP systolic 90–150; BP diastolic 40–60
[2021-08-27] MEDS: *INSULIN REGULAR(HUMULIN R)HUM 100 UNIT/ML VIAL SQ PRN (00:12)
[2021-08-27] MEDS: ALBUTEROL FS 2.5 MG/3 ML VIAL.NEB NEB SCH ×4 (02:07→20:00)
[2021-08-27] MEDS: IPRATROPIUM NEB FS 0.5 MG/2.5 ML AMPUL.NEB NEB SCH ×4 (02:07→20:01)
[2021-08-27] MEDS: GLUCERNA 1.2 1,000 ML BOTTLE GT PRN (02:34)
[2021-08-27] MEDS: IV NS 0.9% 1,000 ML IV PRN ×2 (02:55→23:39)
--- NOTE | 2021-08-27 05:20 | NUR ---
BRASS BOBBIN WINDER NOTES BLOOD SUGAR CHECKED WITH RESULT OF 128 MG/DL; NO COVERAGE GIVEN. WILL CONTINUE TO MONITOR SIGNS/SYMPTOMS OF HYPO/HYPERGLYCEMIA.
[2021-08-27] MEDS: BLOOD SUGAR DIAGNOSTIC 1 EACH STRIP VI SCH ×4 (06:05→22:02)
--- NOTE | 2021-08-27 07:05 | NUR ---
AFTERSCHOOL BABYSITTER CLOSING NOTES PATIENT RESTING IN BED; AWAKE, OBTUNDED, OPENS EYES AND NONVERBAL. ON MECHANICAL VENT WITH SETTINGS FOLLOWS : PORTEX 8, TV 550, FiO2 40%, PEEP 5, TOLERATING SETTINGS WELL. WITH IV ACCESS ON LEFT UPPER ARM MIDLINE G#18; INTACT AND PATENT INFUSING WITH NS @ 100ML/HR; FLUSHES WELL. WITH G-TUBE FEEDING OF GLUCERNA 1.2 REGULATED @ 55ML/HR X 20HRS. NO RESIDUAL NOTED AT THIS TIME. WITH OH CATHETER IN PLACE ATTACHED TO UROBAG DRAINING TO CLEAR YELLOW URINE TO GRAVITY. SAFETY AND ASPIRATION MEASURES IN PLACE. ENDORSED TO NURSE FRANK FOR NEIL.
--- NOTE | 2021-08-27 07:30 | NUR ---
PT RECEIVED RESTING COMFORTABLY IN BED. NO S/S OR C/O PAIN OR DISTRESS NOTED. SIDE RAILS UP X2. CALL LIGHT LEFT WITHIN REACH. WILL CONTINUE PLAN OF CARE.
[2021-08-27] MEDS: METOPROLOL TARTRATE 25 MG TABLET GT SCH ×2 (09:00→17:00)
[2021-08-27] MEDS: AMLODIPINE BESYLATE 5 MG TABLET GT SCH (09:00)
[2021-08-27] MEDS: DOCUSATE SODIUM LIQ 100 MG/10 ML UDC GT SCH ×2 (09:21→17:12)
[2021-08-27] MEDS: FERROUS SULFATE UDC 300 MG/5 ML UDC GT SCH (09:21)
[2021-08-27] MEDS: CHLORHEXIDINE GLUCONATE 15 ML UDC MM SCH ×2 (09:21→17:12)
[2021-08-27] MEDS: MULTIVIT W/MINERALS 1 TAB TABLET GT SCH (09:22)
[2021-08-27] MEDS: PANTOPRAZOLE 40 MG VIAL IV SCH ×2 (09:22→17:12)
[2021-08-27] MEDS: PROSOURCE / PROSTAT (PYXIS) 30 ML UDC GT SCH (09:22)
[2021-08-27] MEDS: ASCORBIC ACID 500 MG TABLET GT SCH (09:22)
[2021-08-27] MEDS: INSULIN GLARGINE, 100 UNIT/ML CARTRIDGE SQ SCH ×2 (09:36→17:00)
[2021-08-27] MEDS: DAKINS QUARTER STRENGTH (0.125%) 480 ML BOTTLE TOP SCH (09:36)
[2021-08-27] MEDS: INSULIN REGULAR, HUMAN 100 UNIT/ML 3 ML VIAL SQ PRN (12:12)
[2021-08-27] MEDS: EPOETIN ALFA-EPBX 4,000 UNIT/ML VIAL SQ SCH (14:30)
[2021-08-27] MEDS: DEXTROSE 50%-WATER 50 ML DISP.SYRIN IV PRN (17:11)
--- NOTE | 2021-08-27 18:57 | NUR ---
CHANGE OF SHIFT REPORT PT RESTING COMFORTABLY IN BED. NO S/S OR C/O PAIN OR DISTRESS NOTED. SIDE RAILS UP X2, CALL LIGHT LEFT WITHIN REACH. PT KEPT CLEAN, DRY, AND COMFORTABLE. NO SIGNIFICANT CHANGES SINCE PREVIOUS SHIFT. WILL GIVE REPORT TO CARO JONES.
--- NOTE | 2021-08-27 20:33 | NUR ---
RN OPENING NOTES RECEIVED PT IN BED, OBTUNDED. OPENS EYES. ON MECHANICAL VENT AND TOLERATING WELL. NO SOB NOTED. NO S/SX OF RESPIRATORY DISTRESS NOTED. TELE MONITOR DETECTS SINUS RHYTHM WITH RATE OF 91. IV ACCESS IN DANAE MIDLINE #18G RUNNING NS @ 100 ML/HR. G-TUBE IN PLACE WITH GLUCERNA 1.2 RUNNING @ 55 ML/HR. SAFETY PRECAUTIONS IN PLACE: BED IN LOWEST, LOCKED POSITION, SIDERAILS UPx2, AND BRAKES ON. TABLE AND CALL LIGHT WITHIN REACH. WILL CONTINUE TO MONITOR.
--- NOTE | 2021-08-27 21:40 | NUR ---
ROBERT NOTES BS OF 53 ADMINISTERED 8 OUNCES OF ORANGE JUICE. WILL RECHECK BLOOD SUGAR. Addendum: 08/27/21 at 2203 by YADIRA MG RN RECHECKED BLOOD SUGAR AND IT IS 70 MG/DL.
[2021-08-28] VITALS: BP 146/51
[2021-08-28] MEDS: IPRATROPIUM NEB FS 0.5 MG/2.5 ML AMPUL.NEB NEB SCH ×4 (02:17→20:11)
[2021-08-28] MEDS: ALBUTEROL FS 2.5 MG/3 ML VIAL.NEB NEB SCH ×4 (02:17→20:11)
[2021-08-28 04:00] VITALS: BP 144/55
[2021-08-28] MEDS: GLUCERNA 1.2 1,000 ML BOTTLE GT PRN (06:09)
[2021-08-28] MEDS: DEXTROSE 50%-WATER 50 ML DISP.SYRIN IV PRN (06:26)
[2021-08-28] MEDS: BLOOD SUGAR DIAGNOSTIC 1 EACH STRIP VI SCH ×4 (07:01→21:27)
--- NOTE | 2021-08-28 07:19 | NUR ---
MS RN OPENING NOTES RECEIVED PT IN BED, OBTUNDED WITH SPONTANEOUS EYE OPENING. ON MECHANICAL VENT AND TOLERATING WELL. NO SOB NOTED. NO S/SX OF RESPIRATORY DISTRESS NOTED. TELE MONITOR READING SINUS RHYTHM WITH RATE OF 80-90'S. IV ACCESS IN DANAE MIDLINE #18G RUNNING NS @ 100 ML/HR INFUSING WELL. WITH G-TUBE IN PLACE WITH GLUCERNA 1.2 RUNNING @ 55 ML/HR. MAINTAINED ON NORMAL BODY ALIGNMENT. COMFORT MEASURES PROVIDED. SAFETY PRECAUTIONS IN PLACE: BED IN LOWEST, LOCKED POSITION, SIDERAILS UPx2, AND BRAKES ON. TABLE AND CALL LIGHT WITHIN REACH. WILL CONTINUE TO MONITOR.
--- NOTE | 2021-08-28 07:22 | NUR ---
RN CLOSING NOTES PT IN BED, OBTUNDED. OPENS EYES. ON MECHANICAL VENT AND TOLERATING WELL. NO SOB NOTED. NO S/SX OF RESPIRATORY DISTRESS NOTED. TELE MONITOR DETECTS SINUS RHYTHM WITH RATE OF 91. IV ACCESS IN DANAE MIDLINE #18G RUNNING NS @ 100 ML/HR. G-TUBE IN PLACE WITH GLUCERNA 1.2 RUNNING @ 55 ML/HR. ALL ORDERS CARRIED OUT. ALL NEEDS MET. PT KEPT CLEAN AND DRY. WOUND CARE DONE DURING SHIFT. SAFETY PRECAUTIONS IN PLACE: BED IN LOWEST, LOCKED POSITION, SIDERAILS UPx2, AND BRAKES ON. TABLE AND CALL LIGHT WITHIN REACH. WILL ENDORSE TO ONCOMING SHIFT FRO NEIL.
--- NOTE | 2021-08-28 07:25 | NUR ---
RN OPENING NOTES RECEIVED PT IN BED, OBTUNDED. OPENS EYES. ON MECHANICAL VENT AND TOLERATING WELL. NO SOB NOTED. NO S/SX OF RESPIRATORY DISTRESS NOTED. TELE MONITOR DETECTS SINUS RHYTHM WITH RATE OF 88. IV ACCESS IN DANAE MIDLINE #18G RUNNING NS @ 100 ML/HR. G-TUBE IN PLACE WITH GLUCERNA 1.2 RUNNING @ 55 ML/HR. SAFETY PRECAUTIONS IN PLACE: BED IN LOWEST, LOCKED POSITION, SIDE RAILS UPx2, AND BRAKES ON. TABLE AND CALL LIGHT WITHIN REACH. WILL CONTINUE TO MONITOR.
[2021-08-28 08:00] VITALS: BP 140/28
[2021-08-28] MEDS: FERROUS SULFATE UDC 300 MG/5 ML UDC GT SCH (09:24)
[2021-08-28] MEDS: ASCORBIC ACID 500 MG TABLET GT SCH (09:25)
[2021-08-28] MEDS: CHLORHEXIDINE GLUCONATE 15 ML UDC MM SCH ×2 (09:25→17:11)
[2021-08-28] MEDS: DOCUSATE SODIUM LIQ 100 MG/10 ML UDC GT SCH ×2 (09:25→17:11)
[2021-08-28] MEDS: AMLODIPINE BESYLATE 5 MG TABLET GT SCH (09:26)
[2021-08-28] MEDS: METOPROLOL TARTRATE 25 MG TABLET GT SCH ×2 (09:27→17:12)
[2021-08-28] MEDS: MULTIVIT W/MINERALS 1 TAB TABLET GT SCH (09:34)
[2021-08-28] MEDS: PANTOPRAZOLE 40 MG VIAL IV SCH ×2 (09:35→17:11)
[2021-08-28] MEDS: PROSOURCE / PROSTAT (PYXIS) 30 ML UDC GT SCH (09:56)
[2021-08-28] MEDS: DAKINS QUARTER STRENGTH (0.125%) 480 ML BOTTLE TOP SCH (10:23)
[2021-08-28] MEDS: INSULIN GLARGINE, 100 UNIT/ML CARTRIDGE SQ SCH ×2 (10:26→17:17)
[2021-08-28] MEDS: IV NS 0.9% 1,000 ML IV PRN ×2 (10:57→20:52)
[2021-08-28 12:00] VITALS: BP 128/50
[2021-08-28 16:00] VITALS: BP 142/30
--- NOTE | 2021-08-28 18:55 | NUR ---
RN CLOSING NOTES PT IN BED, OBTUNDED. OPENS EYES. ON MECHANICAL VENT AND TOLERATING WELL. NO SOB NOTED. NO S/SX OF RESPIRATORY DISTRESS NOTED. TELE MONITOR DETECTS SINUS RHYTHM WITH RATE OF 82. IV ACCESS IN DANAE MIDLINE #18G RUNNING NS @ 100 ML/HR. G-TUBE IN PLACE WITH GLUCERNA 1.2 RUNNING @ 55 ML/HR. ALL ORDERS CARRIED OUT. ALL NEEDS MET. PT KEPT CLEAN AND DRY. WOUND CARE DONE DURING SHIFT. SAFETY PRECAUTIONS IN PLACE: BED IN LOWEST, LOCKED POSITION, SIDERAILS UPx2, AND BRAKES ON. TABLE AND CALL LIGHT WITHIN REACH. WILL ENDORSE TO NEXT SHIFT
--- NOTE | 2021-08-28 19:20 | NUR ---
RN NOTE PT IN BED, OPENS EYES TO STIMULI, FLAT AFFECT. ON MECH VENT AND TYRONE SETTINGS WELL. RESPIRATIONS EVEN/UNLABORED. TELE MONITOR READING SR, HR 84. IV SITE: DANAE MIDLINE #18G INTACT/PATENT, RUNNING NS @100ML/HR. GT INTACT/PATENT, NO RESIDUALS NOTED. GTF GLUCERNA @55ML/HR, TYRONE WELL. F/C DRAINING CLEAR YELLOW URINE. PT IN NO ACUTE DISTRESS. SAFETY MEASURES IN PLACE, BED IN LOWEST LOCKED POSITION, S/R UPX2, CALL LIGHT WITHIN REACH. WILL CONT TO MONITOR.
[2021-08-28 20:00] VITALS: BP 133/40
[2021-08-29] VITALS: BP 131/44
[2021-08-29] MEDS: ALBUTEROL FS 2.5 MG/3 ML VIAL.NEB NEB SCH ×4 (02:10→20:31)
[2021-08-29] MEDS: IPRATROPIUM NEB FS 0.5 MG/2.5 ML AMPUL.NEB NEB SCH ×4 (02:10→20:31)
[2021-08-29 04:00] VITALS: BP 137/54
[2021-08-29] MEDS: IV NS 0.9% 1,000 ML IV PRN ×2 (06:18→16:05)
[2021-08-29] MEDS: BLOOD SUGAR DIAGNOSTIC 1 EACH STRIP VI SCH ×4 (06:20→21:36)
[2021-08-29] MEDS: GLUCERNA 1.2 1,000 ML BOTTLE GT PRN (06:25)
--- NOTE | 2021-08-29 07:00 | NUR ---
RN NOTE PT STABLE THROUGHOUT THE NIGHT. [facility] AND TYRONE SETT[facility] WELL. ONGOING IVF OF NS @100ML/HR. GT INTACT/PATENT, NO RESIDUALS NOTED. GTF GLUCERNA @55ML/HR AND TYRONE WELL. F/C OUTPUT 1200ML THIS SHIFT. KEPT PT CLEAN/DRY, REPOSITIONED Q2HR. NO ACUTE DISTRESS NOTED. SAFETY MEASURES MAINTAINED.
--- NOTE | 2021-08-29 07:25 | NUR ---
PUBLICITY WRITER OPENING NOTES RECEIVED PATIENT AWAKE IN BED IN NO ACUTE SIGNS OF DISTRESS. HOB ELEVATED. PT IS NON-VERBAL, RESPONSIVE TO DEEP TACTILE AND PAIN STIMULI. PT WITH TRACH CONNECTED TO MECHANICAL VENTILATOR, TOLERATING CURRENT SETTINGS WELL, SP02 100% AT THIS TIME. ON TELE-MONITOR WITH CURRENT READING OF NSR, HR 75. LEFT UPPER ARM MIDLINE INTACT WITH IVF NS @ 100ML/HR IN INFUSING WELL. ON GTF OF GLUCERNA 1.2 @ 55ML/HR IN PROGRESS, TOLERATING WELL. OH CATHETER IN PLACE DRAINING CLOUDY YELLOW URINE VIA GRAVITY. ASPIRATION, FALL AND SAFETY PRECAUTIONS MAINTAINED: BED IN LOWEST LOCKED POSITION WITH SR UP X3. CALL LIGHT W/I REACH. WILL CONTINUE TO MONITOR PT ACCORDINGLY.
[2021-08-29 07:34] LABS: BASOPHILS % (AUTO) 0.6 % (0.0-2.0); HEMATOCRIT 30 % (33-45); HEMOGLOBIN 9.9 g/dL (11.5-14.8); LYMPHOCYTES % (AUTO) 26.7 % (20.0-44.0); MEAN CORPUSCULAR HGB CONC 34 g/dl (31.0-36.0); MEAN CORPUSCULAR VOLUME 99 fL (82-100); MONOCYTES # (AUTO) 0.3 K/uL (0.1-1.30); MONOCYTES % (AUTO) 3.9 % (2.0-12.0); NEUTROPHILS # (AUTO) 4.6 K/uL (1.8-8.9); NEUTROPHILS % (AUTO) 61.8 % (43.0-81.0); PLATELET COUNT (AUTO) 262 K/uL (150-450); RED BLOOD CELL COUNT(AUTO) 2.98 MIL/uL (4.0-5.2); WHITE BLOOD COUNT (AUTO) 7.5 K/uL (4.3-11.0)
[2021-08-29 07:56] LABS: CALCIUM, SERUM 8.7 mg/dL (8.5-10.1); CREATININE 1.2 mg/dL (0.6-1.3); POTASSIUM 4.5 mmol/L (3.5-5.1)
[2021-08-29 08:00] VITALS: BP 137/46
[2021-08-29] MEDS: INSULIN GLARGINE, 100 UNIT/ML CARTRIDGE SQ SCH ×2 (09:00→17:00)
[2021-08-29] MEDS: DOCUSATE SODIUM LIQ 100 MG/10 ML UDC GT SCH ×2 (09:11→16:32)
[2021-08-29] MEDS: FERROUS SULFATE UDC 300 MG/5 ML UDC GT SCH (09:11)
[2021-08-29] MEDS: ASCORBIC ACID 500 MG TABLET GT SCH (09:11)
[2021-08-29] MEDS: PANTOPRAZOLE 40 MG VIAL IV SCH ×2 (09:11→16:32)
[2021-08-29] MEDS: MULTIVIT W/MINERALS 1 TAB TABLET GT SCH (09:11)
[2021-08-29] MEDS: CHLORHEXIDINE GLUCONATE 15 ML UDC MM SCH ×2 (09:11→16:32)
[2021-08-29] MEDS: METOPROLOL TARTRATE 25 MG TABLET GT SCH ×2 (09:12→17:00)
[2021-08-29] MEDS: AMLODIPINE BESYLATE 5 MG TABLET GT SCH (09:12)
[2021-08-29] MEDS: PROSOURCE / PROSTAT (PYXIS) 30 ML UDC GT SCH (09:24)
[2021-08-29] MEDS: DAKINS QUARTER STRENGTH (0.125%) 480 ML BOTTLE TOP SCH (09:24)
--- NOTE | 2021-08-29 10:29 | NUR ---
WOUND CARE CONSULT: RECEIVED CONSULT FOR RASH ON BACK AND ABDOMEN WHICH WAS NOTED TO BE PRESENT IN ADMISSION PHOTO. MSG LEFT FOR SURGICAL TEAM CURRENTLY ON CASE. NO DRAINAGE NOTED. ALL SKIN PROTECTION MEASURES IN PLACE AND DISCUSSED WITH NURSING STAFF. PT IS ON FIRST STEP [facility].
[2021-08-29] MEDS: DEXTROSE 50%-WATER 50 ML DISP.SYRIN IV PRN ×2 (11:26→21:37)
[2021-08-29 12:00] VITALS: BP 117/70
[2021-08-29] MEDS: INSULIN REGULAR, HUMAN 100 UNIT/ML 3 ML VIAL SQ PRN (12:09)
--- NOTE | 2021-08-29 12:27 | NUR ---
RN NOTES BS 50 MG/DL, REPEATED AND WAS 49MG/DL. D50 IVP ADMINISTERED AND RECHECKED BS 127 MG/DL. DR YOUNG MADE AWARE WITH NO NEW ORDER MADE AT THIS TIME. WILL CONTINUE TO MONITOR.
[2021-08-29] MEDS: EPOETIN ALFA-EPBX 4,000 UNIT/ML VIAL SQ SCH (14:55)
--- NOTE | 2021-08-29 15:30 | NUR ---
RN NOTES: OBTAINED TELEPHONE CONSENT FROM ELENA FLORES (SON) PHONE NUMBER [phone] FOR LEFT ABOVE THE KNEE AMPUTATION PROCEDURE. CONFIRMED BY ANOTHER RN, NPO TO BE ENFORCED AFTER MIDNIGHT.
[2021-08-29 16:00] VITALS: BP 147/40
--- NOTE | 2021-08-29 17:07 | NUR ---
RN NOTES: BS 72MG/DL INSULIN LANTUS HOLD IF BS <140MG/DL
--- NOTE | 2021-08-29 17:28 | NUR ---
RN NOTES: RECEIVED CALL FROM DR. JARRELL BENSON (ANESTH) W/ ORDER BS CHECK @2PM PRIOR TO SURGERY. SURGERY @ 3PM TOMORROW.
--- NOTE | 2021-08-29 18:42 | NUR ---
MANAGER LVN CLOSING NOTES PATIENT IN BED AWAKE AND LYING AT SEMI-HENNING'S POSITION. OPEN EYES, NON-VERBAL AND RESPONSIVE TO DEEP TACTILE AND PAIN STIMULI. PT WITH PORTEX #8 CONNECTED TO MECHANICAL VENTILATOR, TOLERATING CURRENT SETTINGS WELL WITH NO ACUTE RESPIRATORY DISTRESS NOTED DURING SHIFT. ON TELE-MONITOR WITH CURRENT READING OF NST, HR 102. LEFT UPPER ARM MIDLINE INTACT WITH IVF NS @ 100ML/HR IN INFUSING WELL. ON GTF OF GLUCERNA 1.2 @ 55ML/HR CONTINUOUS, TOLERATING WELL. OH CATHETER IN PLACE DRAINING CLEAR YELLOW URINE VIA GRAVITY, OH CARE DONE. PT TURNED AND REPOSITIONED Q 2HRS AND PRN. ALL NEEDS AND CARE ANTICIPATED AND MET. ASPIRATION, FALL AND SAFETY PRECAUTIONS MAINTAINED: HOB KEPT ELEVATED, BED IN LOWEST LOCKED POSITION WITH SR UP X3. CALL LIGHT W/I REACH. WILL ENDORSE NEIL TO AUTOMOTIVE SERVICE WRITER NURSE.
--- NOTE | 2021-08-29 19:35 | NUR ---
NUTRITION FACULTY MEMBER OPENING NOTE PATIENT LYING IN BED WITH EYES CLOSED, NON-VERBAL, OPENS EYES TO DEEP/PAINFUL STIMULI. PATIENT ON EXTERNAL FINAL INSTALLER INSPECTOR READING SINUS RHYTHM, HR: 92. PATIENT ON MECHANICAL VENT, PORTEX #8, AC 18, TV 550, FIO2 40%, PEEP 5, PATIENT TOLERATING WELL, NO S/S OF RESP DISTRESS OR SOB NOTED. PATIENT ON GT FEEDING GLUCERNA 1.2 @ 55 ML/HR. PATIENT TO BE NPO POST MIDNIGHT FOR SURGERY TOMORROW. OH CATHETER IN PLACE AND DRAINING YELLOW URINE. SAFETY MEASURES IN PLACE: CALL LIGHT WITHIN REACH, SIDE RAILS UP X 3, BED LOCKED IN LOWEST POSITION, HOB ELEVATED, BED ALARM ON. WILL CONTINUE TO MONITOR PATIENT
[2021-08-29 20:00] VITALS: BP 156/58
[2021-08-29] MEDS: HYDROCORTISONE 1% CREAM 28.35 GM TUBE TP SCH (21:36)
--- NOTE | 2021-08-29 21:40 | NUR ---
AUXILIARY EQUIPMENT OPERATOR NOTE PATIENT'S BLOOD SUGAR 54. GAVE DEXTROSE 50% INJECTION ORDERED. WILL REASSESS BLOOD SUGAR
--- NOTE | 2021-08-29 22:25 | NUR ---
BILLING AND QUALITY TECHNICIAN NOTE PATIENT'S BLOOD SUGAR NOW 120. WILL CONTINUE TO MONITOR PATIENT
[2021-08-30] VITALS (14 sets, daily range): BP systolic 112–164; BP diastolic 29–72
[2021-08-30] MEDS: ALBUTEROL FS 2.5 MG/3 ML VIAL.NEB NEB SCH ×4 (01:24→19:59)
[2021-08-30] MEDS: IPRATROPIUM NEB FS 0.5 MG/2.5 ML AMPUL.NEB NEB SCH ×4 (01:24→19:59)
[2021-08-30] MEDS: IV NS 0.9% 1,000 ML IV PRN ×2 (02:19→23:14)
[2021-08-30] MEDS: DEXTROSE 50%-WATER 50 ML DISP.SYRIN IV PRN (03:36)
[2021-08-30] MEDS: BLOOD SUGAR DIAGNOSTIC 1 EACH STRIP VI SCH ×4 (06:54→22:34)
--- NOTE | 2021-08-30 07:09 | NUR ---
DIE PRESS OPERATOR CLOSING NOTE PATIENT LYING IN BED WITH EYES CLOSED, NON-VERBAL, OPENS EYES TO DEEP/PAINFUL STIMULI. PATIENT ON EXTERNAL TOWER FOREMAN READING SINUS RHYTHM, HR: 91. PATIENT ON MECHANICAL VENT, PORTEX #8, AC 18, TV 550, FIO2 40%, PEEP 5, PATIENT TOLERATING WELL, NO S/S OF RESP DISTRESS OR SOB NOTED. PATIENT NPO SINCE MIDNIGHT FOR SURGERY TODAY. OH CATHETER IN PLACE AND DRAINING YELLOW URINE, OUTPUT OF 2000 ML. PATIENT TURNED AND HYGIENE PROVIDED Q2H. MEDICATIONS GIVEN ORDERED, PT NEEDS MET THROUGHOUT SHIFT. SAFETY MEASURES IN PLACE: CALL LIGHT WITHIN REACH, SIDE RAILS UP X 3, BED LOCKED IN LOWEST POSITION, HOB ELEVATED, BED ALARM ON. WILL ENDORSE TO DAY SHIFT NURSE FOR CONTINUITY OF CARE
[2021-08-30 07:15] LABS: BASOPHILS % (AUTO) 0.3 % (0.0-2.0); EOSINOPHILS % (AUTO) 5.5 % (0.0-6.0); HEMATOCRIT 27 % (33-45); HEMOGLOBIN 9.2 g/dL (11.5-14.8); LYMPHOCYTES # (AUTO) 1.4 K/uL (0.8-4.8); LYMPHOCYTES % (AUTO) 16.4 % (20.0-44.0); MEAN CORPUSCULAR HGB CONC 34 g/dl (31.0-36.0); MEAN CORPUSCULAR VOLUME 97 fL (82-100); MONOCYTES # (AUTO) 0.4 K/uL (0.1-1.30); MONOCYTES % (AUTO) 4.1 % (2.0-12.0); NEUTROPHILS # (AUTO) 6.5 K/uL (1.8-8.9); NEUTROPHILS % (AUTO) 73.7 % (43.0-81.0); PLATELET COUNT (AUTO) 279 K/uL (150-450); RED BLOOD CELL COUNT(AUTO) 2.81 MIL/uL (4.0-5.2); WHITE BLOOD COUNT (AUTO) 8.8 K/uL (4.3-11.0)
--- NOTE | 2021-08-30 07:16 | NUR ---
SOCIAL MEDIA DEVELOPER OPENING NOTES PATIENT RECEIVED IN BED AWAKE, NON-VERBAL, RESPONSIVE TO DEEP TACTILE AND PAIN STIMULI. PT PT WITH TRACH PORTEX #8 ATTACHED TO MECHANICAL VENTILATOR, TOLERATING CURRENT SETTINGS WELL, SP02 100% AT THIS TIME. ON TELE-MONITOR WITH CURRENT READING OF NSR, HR 93. DANAE MIDLINE INTACT WITH IVF NS @ 100ML/HR IN INFUSING WELL. GT FEED OF GLUCERNA 1.2 ON HOLD, PT FOR LEFT AKA THIS AFTERNOON BY DR KILLIAN, NPO MAINTAINED. OH CATHETER IN PLACE DRAINING CLEAR YELLOW URINE VIA GRAVITY. ASPIRATION, FALL AND SAFETY PRECAUTIONS MAINTAINED: BED IN LOWEST LOCKED POSITION WITH SR UP X3. CALL LIGHT W/I REACH. WILL CONTINUE TO MONITOR PT
[2021-08-30 07:17] LABS: CALCIUM, SERUM 8.6 mg/dL (8.5-10.1); CREATININE 1.2 mg/dL (0.6-1.3); POTASSIUM 4.5 mmol/L (3.5-5.1)
[2021-08-30] MEDS: PANTOPRAZOLE 40 MG VIAL IV SCH ×2 (07:45→17:56)
--- NOTE | 2021-08-30 08:29 | NUR ---
RN NOTES: SEEN AND EXAMINED BY DR YOUNG, ORDERED D5 1/2 NS 1L @ 100ML/HR ONE TIME ONLY WHILE ON NPO PRIOR TO SURGERY.ORDERS NOTED AND CARRIED OUT.
[2021-08-30] MEDS ORDERED: IV D5/0.45 NACL 1,000 ML IV ONE (08:30)
[2021-08-30] MEDS: CHLORHEXIDINE GLUCONATE 15 ML UDC MM SCH ×2 (08:42→17:56)
[2021-08-30] MEDS: HYDROCORTISONE 1% CREAM 28.35 GM TUBE TP SCH ×2 (08:42→18:00)
[2021-08-30] MEDS: FERROUS SULFATE UDC 300 MG/5 ML UDC GT SCH (08:43)
[2021-08-30] MEDS: DAKINS QUARTER STRENGTH (0.125%) 480 ML BOTTLE TOP SCH (08:43)
[2021-08-30] MEDS: DOCUSATE SODIUM LIQ 100 MG/10 ML UDC GT SCH ×2 (08:43→17:57)
[2021-08-30] MEDS: METOPROLOL TARTRATE 25 MG TABLET GT SCH ×2 (08:44→17:57)
[2021-08-30] MEDS: AMLODIPINE BESYLATE 5 MG TABLET GT SCH (08:44)
[2021-08-30] MEDS: MULTIVIT W/MINERALS 1 TAB TABLET GT SCH (08:45)
[2021-08-30] MEDS: PROSOURCE / PROSTAT (PYXIS) 30 ML UDC GT SCH (08:45)
[2021-08-30] MEDS: ASCORBIC ACID 500 MG TABLET GT SCH (08:45)
[2021-08-30] MEDS: INSULIN GLARGINE, 100 UNIT/ML CARTRIDGE SQ SCH ×2 (09:00→17:00)
--- NOTE | 2021-08-30 09:24 | NUR ---
ROBERT NOTES: BS 64MG/DL, INSULIN GLARGINE 15UNITS NOT ADMINISTERED, <140MG/DL HOLD PER MD ORDER. Addendum: 08/30/21 at 0953 by NIMA ANDERS RN CORRECTION ITS NOT 64MG/DL,ITS 84MG/DL.
--- NOTE | 2021-08-30 09:29 | NUR ---
RN NOTES: BS 84MG/DL, INSULIN GLARGINE 15UNITS NOT ADMINISTERED, <140MG/DL HOLD PER MD ORDER.
--- NOTE | 2021-08-30 10:51 | NUR ---
RN NOTES: TYPE AND SCREEN AND 2 UNITS BLOOD/PRBC SHOWED CANCELLED IN THE SYSTEM, PER ALEE OF BLOOD BANK HE WILL DO THE TYPE AND SCREEN AND WILL RESERVE 2 UNITS OF BLOOD/PRBC.
[2021-08-30] MEDS: INSULIN REGULAR, HUMAN 100 UNIT/ML 3 ML VIAL SQ PRN (11:37)
[2021-08-30] MEDS ORDERED: LIDOCAINE 1% INJ 50 ML MDV IJ ONE (11:57)
[2021-08-30] MEDS ORDERED: VANCOMYCIN 1 GM VIAL ONE (11:57)
[2021-08-30] MEDS ORDERED: BUPIVACAINE 0.5 % PF 150 MG/30 ML VIAL ONE (11:57)
[2021-08-30] MEDS ORDERED: POLYMYXIN B SULFATE 500,000 UNITS ONE (11:58)
--- NOTE | 2021-08-30 14:10 | NUR ---
RN NOTES: CHECKED BLOOD SUGAR 94MG/DL PER MD, ORDERED BLOOD SUGAR CHECK 1 HOUR PRIOR TO SURGERY (3PM).
[2021-08-30] MEDS ORDERED: ROCURONIUM BROMIDE 50 MG/5 ML ONE (15:38)
[2021-08-30] MEDS ORDERED: HYDROMORPHONE INJ 2 MG/ML DISP.SYRIN ONE (15:38)
--- NOTE | 2021-08-30 15:42 | NUR ---
RN NOTES: PATIENT PICKED UP BY 2 OR TRANSPORTER, RN CIRO AND RT SHANIQUA TO SURGERY FOR LEFT ABOVE THE KNEE AMPUTATION.
[2021-08-30] MEDS ORDERED: SEVOFLURANE 250 ML BOTTLE IH ONE (16:36)
--- NOTE | 2021-08-30 17:10 | NUR ---
RN NOTES PT RETURNED TO UNIT @ 1705 S/P LEFT AKA AMPUTATION BY SHAYLA RANDOLPH ACCOMPANIED BY O.R. RN JACOB AND RT SHANIQUA. PT NOTED WITH DRESSING ON LEFT AKA WITH NATHAN BANDAGE AND ABDOULAYE DRAIN WITH BLOODY DRAINAGE NOTED. V/S TAKEN, STABLE AND RECORDED. ALL POST-OP ORDERS RECEIVED AND WILL CARRY-OUT. WILL CONTINUE TO CLOSELY MONITOR PT.
--- NOTE | 2021-08-30 17:30 | NUR ---
PATIENT WERE BAGGED FOR SURGERY. PATIENT REMAIN STABLE DURING TRANSPORT W/O ANY DISTRESS. PATIENT WAS COONNECTED BACK TO THE VENT AFTER SURGERY. PATIENT REMAIN STABLE AND COMFORTABLE ON THE VENTILATOR Addendum: 08/30/21 at 1733 by NORA MCGOVERN RT Amended: Links added.
[2021-08-30] MEDS: GLUCERNA 1.2 1,000 ML BOTTLE GT PRN (17:50)
--- NOTE | 2021-08-30 18:45 | NUR ---
WARRANTY CLERK CLOSING NOTES PATIENT IN BED LYING AT MODERATE HIGH BACKREST POSITION. PT IS NON-VERBAL, OPEN EYES AND RESPONSIVE TO DEEP TACTILE AND PAIN STIMULI. PT WITH PORTEX #8 CONNECTED TO MECHANICAL VENTILATOR, TOLERATING CURRENT SETTINGS WELL WITH NO ACUTE RESPIRATORY DISTRESS NOTED DURING SHIFT. PT S/P LEFT AKA TODAY, DRESSING C/D/I WRAPPED WITH NATHAN BANDAGE AND ABDOULAYE IN PLACE WITH BLOODY DRAINAGE NOTED. ON TELE-MONITOR WITH CURRENT READING OF SR, HR 96. LEFT UPPER ARM MIDLINE INTACT WITH IVF NS @ 100ML/HR IN INFUSING WELL. ON GTF OF GLUCERNA 1.2 @ 55ML/HR IN PROGRESS, TOLERATING WELL. OH CATHETER IN PLACE DRAINING CLEAR YELLOW URINE VIA GRAVITY, OH CARE DONE. PT TURNED AND REPOSITIONED Q 2HRS AND PRN. ALL NEEDS AND CARE ANTICIPATED AND MET. ASPIRATION, FALL AND SAFETY PRECAUTIONS MAINTAINED: HOB KEPT ELEVATED, BED IN LOWEST LOCKED POSITION WITH SR UP X3. CALL LIGHT W/I REACH. WILL ENDORSE NEIL TO CAKE WRAPPER NURSE.
--- NOTE | 2021-08-30 19:50 | NUR ---
CAT OPERATOR OPENING NOTES PATIENT LYING IN BED WITH EYES CLOSED, NON-VERBAL, OPENS EYES TO DEEP/PAINFUL STIMULI. PATIENT ON EXTERNAL TRAINING SPECIALIST READING SINUS RHYTHM, HR: 92. PATIENT ON MECHANICAL VENT, PORTEX #8, AC 18, TV 550, FIO2 40%, PEEP 5, PATIENT TOLERATING WELL, NO S/S OF RESP DISTRESS OR SOB NOTED. PATIENT ON GT FEEDING GLUCERNA 1.2 @ 55 ML/HR. OH CATHETER IN PLACE AND DRAINING YELLOW URINE. PATIENT S/P LEFT ABOVE KNEE AMPUTATION WITH ABDOULAYE DRAIN. DANAE MIDLINE INTACT AND INFUSING NS @ 100 ML/HR. SAFETY MEASURES IN PLACE: CALL LIGHT WITHIN REACH, SIDE RAILS UP X 3, BED LOCKED IN LOWEST POSITION, HOB ELEVATED, BED ALARM ON. WILL CONTINUE TO MONITOR PATIENT
[2021-08-30] MEDS: *INSULIN REGULAR(HUMULIN R)HUM 100 UNIT/ML VIAL SQ PRN (22:37)
[2021-08-31] VITALS: BP 142/53
[2021-08-31] MEDS: ALBUTEROL FS 2.5 MG/3 ML VIAL.NEB NEB SCH ×4 (01:43→19:39)
[2021-08-31] MEDS: IPRATROPIUM NEB FS 0.5 MG/2.5 ML AMPUL.NEB NEB SCH ×4 (01:43→19:39)
[2021-08-31 04:00] VITALS: BP 138/64
[2021-08-31] MEDS: BLOOD SUGAR DIAGNOSTIC 1 EACH STRIP VI SCH ×4 (07:06→22:21)
[2021-08-31] MEDS: INSULIN REGULAR, HUMAN 100 UNIT/ML 3 ML VIAL SQ PRN (07:08)
--- NOTE | 2021-08-31 07:35 | NUR ---
DIE MAKER APPRENTICE CLOSING NOTES PATIENT LYING IN BED WITH EYES CLOSED, NON-VERBAL, OPENS EYES TO DEEP/PAINFUL STIMULI. PATIENT ON EXTERNAL PLANT PROTECTION OFFICER READING SINUS RHYTHM. PATIENT ON MECHANICAL VENT, PORTEX #8, AC 18, TV 550, FIO2 40%, PEEP 5, PATIENT TOLERATING WELL, NO S/S OF RESP DISTRESS OR SOB NOTED. PATIENT ON GT FEEDING GLUCERNA 1.2 @ 55 ML/HR. OH CATHETER IN PLACE AND DRAINING YELLOW URINE, OUTPUT OF 650 ML. PATIENT S/P LEFT ABOVE KNEE AMPUTATION WITH ABDOULAYE DRAIN, OUTPUT OF 50 ML. DANAE MIDLINE INTACT AND INFUSING NS @ 100 ML/HR. MEDICATIONS GIVEN ORDERED, PT TURNED AND HYGIENE PROVIDED Q2H. SAFETY MEASURES IN PLACE: CALL LIGHT WITHIN REACH, SIDE RAILS UP X 3, BED LOCKED IN LOWEST POSITION, HOB ELEVATED, BED ALARM ON. ENDORSED TO DAY SHIFT NURSE FOR CONTINUITY OF CARE
[2021-08-31 08:00] VITALS: BP 125/60
--- NOTE | 2021-08-31 08:10 | NUR ---
RN NOTES PATIENT SEEN BY DR. YOUNG TODAY.
--- NOTE | 2021-08-31 09:20 | NUR ---
RN NOTES ABDOULAYE DRAIN NOTED, DRAINING SANGUINEOUS DRAINAGE.
[2021-08-31] MEDS: IV NS 0.9% 1,000 ML IV PRN (09:42)
[2021-08-31] MEDS: HYDROCORTISONE 1% CREAM 28.35 GM TUBE TP SCH ×2 (09:42→16:21)
[2021-08-31] MEDS: DAKINS QUARTER STRENGTH (0.125%) 480 ML BOTTLE TOP SCH (09:42)
[2021-08-31] MEDS: METOPROLOL TARTRATE 25 MG TABLET GT SCH ×2 (10:52→17:17)
[2021-08-31] MEDS: ASCORBIC ACID 500 MG TABLET GT SCH (10:52)
[2021-08-31] MEDS: MULTIVIT W/MINERALS 1 TAB TABLET GT SCH (10:52)
[2021-08-31] MEDS: AMLODIPINE BESYLATE 5 MG TABLET GT SCH (10:58)
[2021-08-31] MEDS: PANTOPRAZOLE 40 MG VIAL IV SCH ×2 (10:58→16:15)
[2021-08-31] MEDS: FERROUS SULFATE UDC 300 MG/5 ML UDC GT SCH (10:59)
[2021-08-31] MEDS: DOCUSATE SODIUM LIQ 100 MG/10 ML UDC GT SCH ×2 (10:59→16:15)
[2021-08-31] MEDS: INSULIN GLARGINE, 100 UNIT/ML CARTRIDGE SQ SCH ×2 (11:01→17:00)
[2021-08-31] MEDS: CHLORHEXIDINE GLUCONATE 15 ML UDC MM SCH ×2 (11:03→16:15)
[2021-08-31] MEDS: PROSOURCE / PROSTAT (PYXIS) 30 ML UDC GT SCH (11:04)
[2021-08-31 16:00] VITALS: BP 115/41
[2021-08-31] MEDS: EPOETIN ALFA-EPBX 4,000 UNIT/ML VIAL SQ SCH (16:01)
--- NOTE | 2021-08-31 19:14 | NUR ---
POSTING CLERK CLOSING NOTES PATIENT LYING IN BED WITH EYES CLOSED, NON-VERBAL, OPENS EYES TO DEEP/PAINFUL STIMULI. PATIENT ON EXTERNAL ICT HELP DESK OFFICER READING SINUS RHYTHM. PATIENT ON MECHANICAL VENT, PORTEX #8, AC 18, TV 550, FIO2 40%, PEEP 5, PATIENT TOLERATING WELL, NO S/S OF RESP DISTRESS OR SOB NOTED. PATIENT ON GT FEEDING GLUCERNA 1.2 @ 55 ML/HR. OH CATHETER IN PLACE AND DRAINING YELLOW URINE, PATIENT S/P LEFT ABOVE KNEE AMPUTATION WITH ABDOULAYE DRAIN. DANAE MIDLINE INTACT AND INFUSING NS @ 100 ML/HR. PT TURNED AND HYGIENE PROVIDED Q2H. SAFETY MEASURES IN PLACE: CALL LIGHT WITHIN REACH, SIDE RAILS UP X 3, BED LOCKED IN LOWEST POSITION, HOB ELEVATED, BED ALARM ON. WILL CONTINUE TO MONITOR. Addendum: 08/31/21 at 2054 by LUNA CHILD RN opening notes pt noted with low grade fever 100.5 cooling measures provided will reassess temperature.
--- NOTE | 2021-08-31 19:33 | NUR ---
RT PT RECVD ON ORDERED AC VENT SETTINGS WITH PORTEX 8 CUFFED TRACH PATENT AND SECURED. SUCTION Q2/PRN, NEB TX GIVEN AND TYRONE WELL. VENT IS PLUGGED INTO RED OUTLET WITH ALARMS ON AND AUDIBLE. BVM AND SPARE TRACH AT BEDSIDE. SPO2 100%. NO SOB OR RESPIRATORY DISTRESS NOTED AT THIS TIME.
[2021-08-31 20:00] VITALS: BP 120/47
[2021-08-31] MEDS: DEXTROSE 50%-WATER 50 ML DISP.SYRIN IV PRN (22:22)
--- NOTE | 2021-08-31 22:28 | NUR ---
RN NOTE pt noted with critical bs 44 prn d50% given will recheck bs charge nurse aware. motor vehicle technician aware.
[2021-08-31] MEDS: *INSULIN REGULAR(HUMULIN R)HUM 100 UNIT/ML VIAL SQ PRN (23:00)
[2021-09-01] VITALS: BP 148/41
[2021-09-01] MEDS: ALBUTEROL FS 2.5 MG/3 ML VIAL.NEB NEB SCH ×4 (01:26→20:03)
[2021-09-01] MEDS: IPRATROPIUM NEB FS 0.5 MG/2.5 ML AMPUL.NEB NEB SCH ×4 (01:26→20:03)
[2021-09-01 04:00] VITALS: BP 143/67
[2021-09-01] MEDS: ACETAMINOPHEN 325 MG TABLET PO PRN (04:38)
--- NOTE | 2021-09-01 04:43 | NUR ---
rn notes pt temperature still elevated prn Tylenol given and tolerated well. will continue to monitor.
[2021-09-01 05:49] LABS: BASOPHILS % (AUTO) 0.4 % (0.0-2.0); EOSINOPHILS % (AUTO) 5.2 % (0.0-6.0); HEMATOCRIT 25 % (33-45); HEMOGLOBIN 8.3 g/dL (11.5-14.8); LYMPHOCYTES % (AUTO) 24.8 % (20.0-44.0); MEAN CORPUSCULAR HGB CONC 34 g/dl (31.0-36.0); MEAN CORPUSCULAR VOLUME 98 fL (82-100); MONOCYTES # (AUTO) 0.4 K/uL (0.1-1.30); MONOCYTES % (AUTO) 5.2 % (2.0-12.0); NEUTROPHILS # (AUTO) 5.2 K/uL (1.8-8.9); NEUTROPHILS % (AUTO) 64.4 % (43.0-81.0); PLATELET COUNT (AUTO) 259 K/uL (150-450); RED BLOOD CELL COUNT(AUTO) 2.54 MIL/uL (4.0-5.2); WHITE BLOOD COUNT (AUTO) 8.1 K/uL (4.3-11.0)
[2021-09-01 06:02] LABS: CREATININE 1.5 mg/dL (0.6-1.3); MAGNESIUM 1.5 mg/dL (1.8-2.4); PHOSPHORUS 3.8 mg/dL (2.5-4.9); POTASSIUM 4.9 mmol/L (3.5-5.1)
--- NOTE | 2021-09-01 06:28 | NUR ---
SOCIAL MEDIA EXECUTIVE OPENING NOTES PATIENT LYING IN BED WITH EYES CLOSED, NON-VERBAL, OPENS EYES TO DEEP/PAINFUL STIMULI. PATIENT ON EXTERNAL COMPUTER GAME DESIGNER READING SINUS RHYTHM. PATIENT ON MECHANICAL VENT, PORTEX #8, AC 18, TV 550, FIO2 40%, PEEP 5, PATIENT TOLERATING WELL, NO S/S OF RESP DISTRESS OR SOB NOTED. PATIENT ON GT FEEDING GLUCERNA 1.2 @ 55 ML/HR. OH CATHETER IN PLACE AND DRAINING YELLOW URINE, PATIENT S/P LEFT ABOVE KNEE AMPUTATION WITH ABDOULAYE DRAIN IN PLACE WITH 25 CC OF SANGUINOUS DRAINAGE THROUGHOUT THE SHIFT. DANAE MIDLINE INTACT AND INFUSING NS @ 100 ML/HR. PT TURNED AND HYGIENE PROVIDED Q2H. SAFETY MEASURES IN PLACE: CALL LIGHT WITHIN REACH, SIDE RAILS UP X 3, BED LOCKED IN LOWEST POSITION, HOB ELEVATED, BED ALARM ON. WILL ENDORSE CRE TO DAY SHIFT NURSE. Addendum: 09/01/21 at 0629 by LUNA CHILD RN CLOSING NOTE
--- NOTE | 2021-09-01 07:30 | NUR ---
GARAGE DOOR INSTALLER OPENING GARAGE DOOR INSTALLER OPENING NOTES PATIENT LYING IN BED WITH EYES CLOSED, NON-VERBAL, OPENS EYES TO DEEP/PAINFUL STIMULI. PATIENT ON EXTERNAL OPERATIONS VICE PRESIDENT READING SINUS RHYTHM. PATIENT ON MECHANICAL VENT, PORTEX #8, AC 18, TV 550, FIO2 40%, PEEP 5, PATIENT TOLERATING WELL, NO S/S OF RESP DISTRESS OR SOB NOTED. PATIENT ON GT FEEDING GLUCERNA 1.2 @ 55 ML/HR. OH CATHETER IN PLACE AND DRAINING CLEAR YELLOW URINE, PATIENT S/P LEFT ABOVE KNEE AMPUTATION WITH ABDOULAYE DRAIN IN PLACE WITH 25 CC OF SANGUINOUS DRAINAGE THROUGHOUT THE SHIFT. DANAE MIDLINE INTACT AND INFUSING NS @ 100 ML/HR. PT TURNED AND HYGIENE PROVIDED Q2H. SAFETY MEASURES IN PLACE: CALL LIGHT WITHIN REACH, SIDE RAILS UP X 3, BED LOCKED IN LOWEST POSITION, HOB ELEVATED, BED ALARM ON. WILL CONTINUE TO MONITOR.
[2021-09-01 08:00] VITALS: BP 115/59
[2021-09-01] MEDS ORDERED: Magnesium 1GM/D5W 100ML PREMIX 100 ML IV SCH (09:00)
[2021-09-01] MEDS: BLOOD SUGAR DIAGNOSTIC 1 EACH STRIP VI SCH ×4 (09:11→21:23)
[2021-09-01] MEDS: CHLORHEXIDINE GLUCONATE 15 ML UDC MM SCH ×2 (09:19→17:15)
[2021-09-01] MEDS: ASCORBIC ACID 500 MG TABLET GT SCH (09:19)
[2021-09-01] MEDS: FERROUS SULFATE UDC 300 MG/5 ML UDC GT SCH (09:19)
[2021-09-01] MEDS: DOCUSATE SODIUM LIQ 100 MG/10 ML UDC GT SCH ×2 (09:19→17:15)
[2021-09-01] MEDS: PANTOPRAZOLE 40 MG VIAL IV SCH ×2 (09:19→17:15)
[2021-09-01] MEDS: MULTIVIT W/MINERALS 1 TAB TABLET GT SCH (09:19)
[2021-09-01] MEDS: AMLODIPINE BESYLATE 5 MG TABLET GT SCH (09:24)
[2021-09-01] MEDS: METOPROLOL TARTRATE 25 MG TABLET GT SCH ×2 (09:24→17:18)
[2021-09-01] MEDS: PROSOURCE / PROSTAT (PYXIS) 30 ML UDC GT SCH (09:27)
[2021-09-01] MEDS: INSULIN GLARGINE, 100 UNIT/ML CARTRIDGE SQ SCH ×2 (09:34→16:53)
[2021-09-01] MEDS: DAKINS QUARTER STRENGTH (0.125%) 480 ML BOTTLE TOP SCH (10:57)
[2021-09-01] MEDS: HYDROCORTISONE 1% CREAM 28.35 GM TUBE TP SCH ×2 (10:58→17:35)
[2021-09-01 12:42] VITALS: BP 121/63
[2021-09-01] MEDS: GLUCERNA 1.2 1,000 ML BOTTLE GT PRN (15:05)
[2021-09-01 16:30] VITALS: BP 154/59
[2021-09-01] MEDS: *INSULIN REGULAR(HUMULIN R)HUM 100 UNIT/ML VIAL SQ PRN ×2 (16:58→21:23)
[2021-09-01] MEDS: IV NS 0.9% 1,000 ML IV PRN (17:11)
--- NOTE | 2021-09-01 18:42 | NUR ---
SLAB INSTALLER CLOSING NOTES PATIENT LYING IN BED WITH EYES CLOSED, NON-VERBAL, OPENS EYES TO DEEP/PAINFUL STIMULI. PATIENT ON EXTERNAL DISTANCE EDUCATION DIRECTOR READING SINUS RHYTHM. PATIENT ON MECHANICAL VENT, PORTEX #8, AC 18, TV 550, FIO2 40%, PEEP 5, PATIENT TOLERATING WELL, NO S/S OF RESP DISTRESS OR SOB NOTED. PATIENT ON GT FEEDING GLUCERNA 1.2 @ 55 ML/HR. OH CATHETER IN PLACE AND DRAINING CLEAR YELLOW URINE, PATIENT S/P LEFT ABOVE KNEE AMPUTATION WITH ABDOULAYE DRAIN IN PLACE WITH 5 CC OF SERO-SANGUINOUS DRAINAGE THROUGHOUT THE SHIFT. DANAE MIDLINE INTACT AND INFUSING NS @ 100 ML/HR. PT TURNED AND HYGIENE PROVIDED Q2H. SAFETY MEASURES IN PLACE: CALL LIGHT WITHIN REACH, SIDE RAILS UP X 3, BED LOCKED IN LOWEST POSITION, HOB ELEVATED, BED ALARM ON. WILL ENDORSE TO NEXT SHIFT.
--- NOTE | 2021-09-01 19:51 | NUR ---
RN OPENING NOTE PATIENT ASLEEP IN BED. NON-VERBAL, W/ EYE OPENING. NO S/S OF DISTRESS, BREATHING W/O DIFFICULTY ON MECHANICAL VENT. DANAE MIDLINE #18 INTACT AND PATENT W/ NS 100ML/HR. TELE MONITOR REVEALS SR82. SAFETY MEASURES IN PLACE: BED LOCKED, AT LOWEST POSITION, RAILS UP X3, CALL SKY WITHIN REACH. WILL CONTINUE TO MONITOR PATIENT.
[2021-09-01 20:00] VITALS: BP 153/43
[2021-09-02] VITALS: BP 141/48
[2021-09-02] MEDS: IPRATROPIUM NEB FS 0.5 MG/2.5 ML AMPUL.NEB NEB SCH ×4 (02:22→19:47)
[2021-09-02] MEDS: ALBUTEROL FS 2.5 MG/3 ML VIAL.NEB NEB SCH ×4 (02:22→19:47)
[2021-09-02 04:00] VITALS: BP 130/48
[2021-09-02] MEDS: DEXTROSE 50%-WATER 50 ML DISP.SYRIN IV PRN ×4 (06:21→16:35)
[2021-09-02] MEDS: INSULIN REGULAR, HUMAN 100 UNIT/ML 3 ML VIAL SQ PRN (06:50)
[2021-09-02] MEDS: BLOOD SUGAR DIAGNOSTIC 1 EACH STRIP VI SCH ×4 (06:50→21:08)
[2021-09-02] MEDS: IV NS 0.9% 1,000 ML IV PRN (07:00)
[2021-09-02 07:18] LABS: CALCIUM, SERUM 8.5 mg/dL (8.5-10.1); CREATININE 1.4 mg/dL (0.6-1.3); MAGNESIUM 1.8 mg/dL (1.8-2.4); POTASSIUM 4.7 mmol/L (3.5-5.1)
--- NOTE | 2021-09-02 07:30 | NUR ---
ASSOCIATE TRAINER OPENING NOTES PATIENT LYING IN BED WITH EYES CLOSED, NON-VERBAL, OPENS EYES TO PAINFUL STIMULI. PATIENT ON EXTERNAL SHOE PARTS MOLDER READING SINUS TACHY 104. PATIENT ON MECHANICAL VENT, PORTEX #8, AC 18, TV 550, FIO2 40%, PEEP 5, PATIENT TOLERATING WELL, NO S/S OF RESP DISTRESS OR SOB NOTED. PATIENT ON GT FEEDING GLUCERNA 1.2 @ 55 ML/HR. OH CATHETER IN PLACE AND DRAINING CLEAR YELLOW URINE, PATIENT S/P LEFT ABOVE KNEE AMPUTATION. DANAE MIDLINE INTACT AND INFUSING NS @ 100 ML/HR. PT TURNED AND HYGIENE PROVIDED Q2H. SAFETY MEASURES IN PLACE: CALL LIGHT WITHIN REACH, SIDE RAILS UP X 3, BED LOCKED IN LOWEST POSITION, HOB ELEVATED, BED ALARM ON. WILL CONTINUE TO MONITOR.
--- NOTE | 2021-09-02 07:36 | NUR ---
RN CLOSING NOTE PATIENT AWAKE IN BED. NON-VERBAL, EYE-OPENING. NO S/S OF DISTRESS, BREATHING W/O DIFFICULTY ON MECHANICAL VENT. DANAE MIDLINE #18 INTACT AND PATENT W/ NS 100ML/HR. TELE MONITOR REVEALS SR 82. SAFETY MEASURES IN PLACE: BED AT LOWEST POSITION, LOCKED, RAILS UP X2, CALL SKY WITHIN REACH. REPORT GIVEN TO AND ACKNOWLEDGED BY DAY SHIFT RNSHARMIN.
[2021-09-02 08:18] VITALS: BP 135/56
--- NOTE | 2021-09-02 08:46 | NUR ---
WELFARE AIDE NOTE PATIENT SEEN BY DR. YOUNG. MR NOTIFIED OF HYPOGLYCEMIC EPISODES, WITH ORDERS READ BACK AND VERIFIED WITH MD.
[2021-09-02] MEDS: MULTIVIT W/MINERALS 1 TAB TABLET GT SCH (09:02)
[2021-09-02] MEDS: DOCUSATE SODIUM LIQ 100 MG/10 ML UDC GT SCH ×2 (09:02→16:56)
[2021-09-02] MEDS: PANTOPRAZOLE 40 MG VIAL IV SCH ×2 (09:02→16:56)
[2021-09-02] MEDS: ASCORBIC ACID 500 MG TABLET GT SCH (09:02)
[2021-09-02] MEDS: FERROUS SULFATE UDC 300 MG/5 ML UDC GT SCH (09:02)
[2021-09-02] MEDS: CHLORHEXIDINE GLUCONATE 15 ML UDC MM SCH ×2 (09:02→16:56)
[2021-09-02] MEDS: AMLODIPINE BESYLATE 5 MG TABLET GT SCH (09:03)
[2021-09-02] MEDS: METOPROLOL TARTRATE 25 MG TABLET GT SCH ×2 (09:04→16:58)
[2021-09-02] MEDS: PROSOURCE / PROSTAT (PYXIS) 30 ML UDC GT SCH (09:28)
[2021-09-02] MEDS: INSULIN GLARGINE, 100 UNIT/ML CARTRIDGE SQ SCH ×3 (09:32→22:00)
[2021-09-02] MEDS: DAKINS QUARTER STRENGTH (0.125%) 480 ML BOTTLE TOP SCH (09:36)
[2021-09-02] MEDS: HYDROCORTISONE 1% CREAM 28.35 GM TUBE TP SCH ×2 (09:37→17:41)
[2021-09-02 12:00] VITALS: BP 129/49
--- NOTE | 2021-09-02 15:30 | NUR ---
EDGE GLUE MACHINE TENDER NOTE WOUND CARE DONE ORDERED. PROCEDURE TOLERATED WELL.
[2021-09-02 16:10] VITALS: BP 153/50
[2021-09-02] MEDS: GLUCERNA 1.2 1,000 ML BOTTLE GT PRN (16:10)
--- NOTE | 2021-09-02 19:18 | NUR ---
ENERGY PROJECT MANAGER CLOSING NOTES PATIENT LYING IN BED WITH EYES CLOSED, NON-VERBAL, OPENS EYES TO PAINFUL STIMULI. PATIENT ON EXTERNAL PHOTOTYPESETTING EQUIPMENT MONITOR READING SINUS TACHY 104. PATIENT ON MECHANICAL VENT, PORTEX #8, AC 18, TV 550, FIO2 40%, PEEP 5, PATIENT TOLERATING WELL, NO S/S OF RESP DISTRESS OR SOB NOTED. PATIENT ON GT FEEDING GLUCERNA 1.2 @ 55 ML/HR. OH CATHETER IN PLACE AND DRAINING CLEAR YELLOW URINE, PATIENT S/P LEFT ABOVE KNEE AMPUTATION. DANAE MIDLINE INTACT AND INFUSING NS @ 100 ML/HR. PT TURNED AND HYGIENE PROVIDED Q2H. SAFETY MEASURES IN PLACE: CALL LIGHT WITHIN REACH, SIDE RAILS UP X 3, BED LOCKED IN LOWEST POSITION, HOB ELEVATED, BED ALARM ON. ENDORSED TO NEXT SHIFT FOR CONTINUITY OF CARE.
--- NOTE | 2021-09-02 19:29 | NUR ---
PMO PROJECT MANAGER OPENING NOTES PATIENT LYING IN BED WITH EYES CLOSED, NON-VERBAL, OPENS EYES TO PAINFUL STIMULI. PATIENT ON EXTERNAL MUSIC EDUCATION ADJUNCT PROFESSOR READING SINUS TACHY 104. PATIENT ON MECHANICAL VENT, PORTEX #8, AC 18, TV 550, FIO2 40%, PEEP 5, PATIENT TOLERATING WELL, NO S/S OF RESP DISTRESS OR SOB NOTED. PATIENT ON GT FEEDING GLUCERNA 1.2 @ 55 ML/HR. OH CATHETER IN PLACE AND DRAINING CLEAR YELLOW URINE, PATIENT S/P LEFT ABOVE KNEE AMPUTATION. DANAE MIDLINE INTACT S/L.. SAFETY MEASURES IN PLACE: CALL LIGHT WITHIN REACH, SIDE RAILS UP X 3, BED LOCKED IN LOWEST POSITION, HOB ELEVATED, BED ALARM ON. WILL CONTINUE TO MONITOR.
[2021-09-02 20:03] VITALS: BP 143/68
[2021-09-02] MEDS: *INSULIN REGULAR(HUMULIN R)HUM 100 UNIT/ML VIAL SQ PRN (21:08)
[2021-09-03 00:45] VITALS: BP 141/77
[2021-09-03] MEDS: ALBUTEROL FS 2.5 MG/3 ML VIAL.NEB NEB SCH ×3 (02:05→13:41)
[2021-09-03] MEDS: IPRATROPIUM NEB FS 0.5 MG/2.5 ML AMPUL.NEB NEB SCH ×3 (02:05→13:41)
[2021-09-03 04:16] VITALS: BP 138/75
[2021-09-03 06:20] LABS: BASOPHILS % (AUTO) 0.3 % (0.0-2.0); EOSINOPHILS % (AUTO) 4.3 % (0.0-6.0); HEMATOCRIT 27 % (33-45); LYMPHOCYTES # (AUTO) 1.9 K/uL (0.8-4.8); LYMPHOCYTES % (AUTO) 22.9 % (20.0-44.0); MEAN CORPUSCULAR HGB CONC 34 g/dl (31.0-36.0); MEAN CORPUSCULAR VOLUME 97 fL (82-100); MONOCYTES # (AUTO) 0.3 K/uL (0.1-1.30); MONOCYTES % (AUTO) 3.6 % (2.0-12.0); NEUTROPHILS # (AUTO) 5.9 K/uL (1.8-8.9); NEUTROPHILS % (AUTO) 68.9 % (43.0-81.0); PLATELET COUNT (AUTO) 321 K/uL (150-450); RED BLOOD CELL COUNT(AUTO) 2.75 MIL/uL (4.0-5.2); WHITE BLOOD COUNT (AUTO) 8.5 K/uL (4.3-11.0)
[2021-09-03 06:28] LABS: CALCIUM, SERUM 8.8 mg/dL (8.5-10.1); CREATININE 1.6 mg/dL (0.6-1.3); POTASSIUM 4.9 mmol/L (3.5-5.1)
[2021-09-03] MEDS: BLOOD SUGAR DIAGNOSTIC 1 EACH STRIP VI SCH ×2 (06:47→11:49)
[2021-09-03] MEDS: INSULIN REGULAR, HUMAN 100 UNIT/ML 3 ML VIAL SQ PRN ×2 (06:48→11:50)
--- NOTE | 2021-09-03 06:48 | NUR ---
ICD 9 CODER CLOSING NOTES PATIENT LYING IN BED WITH EYES CLOSED, NON-VERBAL, OPENS EYES TO PAINFUL STIMULI. PATIENT ON EXTERNAL TEST LEAD READING SINUS TACHY 104. PATIENT ON MECHANICAL VENT, PORTEX #8, AC 18, TV 550, FIO2 40%, PEEP 5, PATIENT TOLERATING WELL, NO S/S OF RESP DISTRESS OR SOB NOTED. PATIENT ON GT FEEDING GLUCERNA 1.2 @ 55 ML/HR. OH CATHETER IN PLACE AND DRAINING CLEAR YELLOW URINE, PATIENT DANAE MIDLINE INTACT S/L. INSULIN BHUPENDRA DURING THE INSULATION APPLICATOR PT BLOOD SUGAR WAS LOW. SAFETY MEASURES IN PLACE: CALL LIGHT WITHIN REACH, SIDE RAILS UP X 3, BED LOCKED IN LOWEST POSITION, HOB ELEVATED, BED ALARM ON. WILL ENDORSE CARE TO DAY SHIFT NURSE.
--- NOTE | 2021-09-03 07:27 | NUR ---
CREAM DUMPER OPENING NOTE RECEIVED PATIENT ASLEEP IN BED. PT OPENS EYE AND IS NON VERBAL. ON MECH VENT, TOLERATING WELL, NOT IN ANY SIGN OF DISTRESS. DANAE G #18 MIDLINE, INTACT AND PATENT. ON GTUBE FEEDING OF GLUCERNA RUNNING AT 55ML/HR. TOLERATING WELL. KEPT HOB ELEVATED. OH CATH IN PLACE DRAINING WELL. SAFETY MEASURES IN PLACE: BED LOCKED, AT LOWEST POSITION, RAILS UP X3, BED ALARM ON, CALL SKY WITHIN REACH. WILL CONTINUE TO MONITOR PATIENT. Addendum: 09/03/21 at 0733 by TALISHA MONTERO RN ADDENDUM ON TELE SENIOR INFORMATION SECURITY ENGINEER WITH CURRENT READING OF SR, HR 96. NO SIGNS OF CARDIAC DISCOMFORT OR DISTRESS AT THIS TIME.
[2021-09-03 08:00] VITALS: BP 148/72
[2021-09-03] MEDS: INSULIN GLARGINE, 100 UNIT/ML CARTRIDGE SQ SCH (08:33)
[2021-09-03] MEDS: ASCORBIC ACID 500 MG TABLET GT SCH (08:36)
[2021-09-03] MEDS: METOPROLOL TARTRATE 25 MG TABLET GT SCH ×2 (08:37→16:11)
[2021-09-03] MEDS: FERROUS SULFATE UDC 300 MG/5 ML UDC GT SCH (08:37)
[2021-09-03] MEDS: MULTIVIT W/MINERALS 1 TAB TABLET GT SCH (08:37)
[2021-09-03] MEDS: DOCUSATE SODIUM LIQ 100 MG/10 ML UDC GT SCH ×2 (08:37→16:14)
[2021-09-03] MEDS: PANTOPRAZOLE 40 MG VIAL IV SCH ×2 (08:37→16:15)
[2021-09-03] MEDS: CHLORHEXIDINE GLUCONATE 15 ML UDC MM SCH ×2 (08:37→16:14)
[2021-09-03] MEDS: AMLODIPINE BESYLATE 5 MG TABLET GT SCH (08:38)
[2021-09-03] MEDS: PROSOURCE / PROSTAT (PYXIS) 30 ML UDC GT SCH (08:39)
[2021-09-03] MEDS: DAKINS QUARTER STRENGTH (0.125%) 480 ML BOTTLE TOP SCH (08:39)
[2021-09-03] MEDS: HYDROCORTISONE 1% CREAM 28.35 GM TUBE TP SCH (08:40)
[2021-09-03 12:00] VITALS: BP 163/80
[2021-09-03 16:11] VITALS: BP 158/74
[2021-09-03] MEDS: EPOETIN ALFA-EPBX 4,000 UNIT/ML VIAL SQ SCH (16:14)
--- NOTE | 2021-09-03 16:40 | NUR ---
DISCHARGED RN NOTES PT DISCHARGED TO [facility] IN STABLE CONDITION. PT IS NON VERBAL AND OPENS EYES TO STIMULI. PT WITH TRACH PORTEX #8 CONNECTED TO MECHANICAL VENT AT PRESCRIBED SETTINGS. TOLERATING SETTINGS WELL, WITH BREATHING UNLABORED AND NOT IN ANY SIGN OF RESPIRATORY DISTRESS. V/S TAKEN, STABLE, AND RECORDED. PHOTOGRAPHS OF SKIN ISSUES TAKEN AND FILED IN HER CHART. PT HAS NO BELONGINGS. DANAE MIDLINE G #18 REMOVED WITH NO ACTIVE BLEEDING NOTED. DRY PRESSURE DRESSING APPLIED AT SITE. PT HAS GTUBE, INTACT AND PATENT. OH CATH NOT REMOVED PER REQUEST FROM SNF. CALLED AND REPORT GIVEN EARLIER TO ROBERT POSEY OF [facility]. PT LEFT UNIT VIA GURNEY AT 1628. ACCOMPANIED BY 2 YAM CURER AND RT. MD AND CHARGED NURSE AWARE OF DISCHARGED.
--- NOTE | 2021-09-06 13:59 | NUR ---
APS: ERWIN received call from APS worker, requesting discharged plan. ERWIN notified her that pt. returned to [facility]. APS worker stated they will follow up with pt. there.
== END 2021-09-03 16:25 | DRG 710 ==
LOC: ER 15:40 → TELE 19:49
PROVIDERS: ADMIT Internal Medicine; ATTEND Internal Medicine
PROC: 5A1955Z Respiratory Ventilation, Greater than 96 Consecutive Hours (ICD-10-PCS; principal; 2021-08-01)
PROC: 30233N1 Transfusion of Nonautologous Red Blood Cells into Peripheral Vein, Percutaneous Approach (ICD-10-PCS; 2021-08-01)
PROC: 0QBM0ZZ Excision of Left Tarsal, Open Approach (ICD-10-PCS; 2021-08-03)
PROC: 0KBN0ZZ Excision of Right Hip Muscle, Open Approach (ICD-10-PCS; 2021-08-06)
PROC: 0KBP0ZZ Excision of Left Hip Muscle, Open Approach (ICD-10-PCS; 2021-08-06)
PROC: 0QBM0ZZ Excision of Left Tarsal, Open Approach (ICD-10-PCS; 2021-08-08)
PROC: 05HF33Z Insertion of Infusion Device into Left Cephalic Vein, Percutaneous Approach (ICD-10-PCS; 2021-08-09)
PROC: 0KBP0ZZ Excision of Left Hip Muscle, Open Approach (ICD-10-PCS; 2021-08-13)
PROC: 0KBN0ZZ Excision of Right Hip Muscle, Open Approach (ICD-10-PCS; 2021-08-13)
PROC: 0KBP0ZZ Excision of Left Hip Muscle, Open Approach (ICD-10-PCS; 2021-08-21)
PROC: 0KBN0ZZ Excision of Right Hip Muscle, Open Approach (ICD-10-PCS; 2021-08-21)
DX: A41.89 Other specified sepsis (principal); N17.0 Acute kidney failure with tubular necrosis; J96.20 Acute and chronic respiratory failure, unspecified whether with hypoxia or hypercapnia; G93.49 Other encephalopathy; E43 Unspecified severe protein-calorie malnutrition; L89.154 Pressure ulcer of sacral region, stage 4; D68.59 Other primary thrombophilia; R65.20 Severe sepsis without septic shock; E11.52 Type 2 diabetes mellitus with diabetic peripheral angiopathy with gangrene; Z99.11 Dependence on respirator [ventilator] status; Z93.0 Tracheostomy status; D63.8 Anemia in other chronic diseases classified elsewhere; E11.22 Type 2 diabetes mellitus with diabetic chronic kidney disease; Z20.822 Contact with and (suspected) exposure to COVID-19; I12.9 Hypertensive chronic kidney disease with stage 1 through stage 4 chronic kidney disease, or unspecified chronic kidney disease; N18.9 Chronic kidney disease, unspecified; R13.10 Dysphagia, unspecified; Z79.51 Long term (current) use of inhaled steroids; Z79.4 Long term (current) use of insulin; Z79.899 Other long term (current) drug therapy; N39.0 Urinary tract infection, site not specified; Z93.1 Gastrostomy status; E11.621 Type 2 diabetes mellitus with foot ulcer; E11.69 Type 2 diabetes mellitus with other specified complication; E11.65 Type 2 diabetes mellitus with hyperglycemia; E11.622 Type 2 diabetes mellitus with other skin ulcer; Z87.820 Personal history of traumatic brain injury; Z85.09 Personal history of malignant neoplasm of other digestive organs; Z87.440 Personal history of urinary (tract) infections; Z16.24 Resistance to multiple antibiotics; M24.561 Contracture, right knee; M24.562 Contracture, left knee; N20.0 Calculus of kidney; E88.09 Other disorders of plasma-protein metabolism, not elsewhere classified; Z86.74 Personal history of sudden cardiac arrest; E86.1 Hypovolemia; F03.90 Unspecified dementia, unspecified severity, without behavioral disturbance, psychotic disturbance, mood disturbance, and anxiety; T39.395A Adverse effect of other nonsteroidal anti-inflammatory drugs [NSAID], initial encounter; Y92.9 Unspecified place or not applicable; M62.562 Muscle wasting and atrophy, not elsewhere classified, left lower leg; M62.561 Muscle wasting and atrophy, not elsewhere classified, right lower leg; E87.2 Acidosis; J98.11 Atelectasis; M46.28 Osteomyelitis of vertebra, sacral and sacrococcygeal region; M86.172 Other acute osteomyelitis, left ankle and foot; L97.523 Non-pressure chronic ulcer of other part of left foot with necrosis of muscle; L97.519 Non-pressure chronic ulcer of other part of right foot with unspecified severity; B96.1 Klebsiella pneumoniae [K. pneumoniae] as the cause of diseases classified elsewhere; B96.4 Proteus (mirabilis) (morganii) as the cause of diseases classified elsewhere; B95.2 Enterococcus as the cause of diseases classified elsewhere
CPT/HCPCS: 31720; 36410; 36415; 71045-TC; 73630-TC; 80048-TC; 80053-TC; 80076-TC; 80202-TC; 81001; 82247-TC; 82248-TC; 82962-TC; 83605-TC; 83735-TC; 84100-TC; 85025-TC; 85027-TC; 85610-TC; 85652-TC; 85730-TC; 86140-TC; 86850-TC; 87040-TC; 87070-TC; 87081-TC; 87086-TC; 87186-TC; 88305-TC; 88311-TC; 94003-TC; 94760-TC; 94762-TC; 94799-TC; A4216; A4217; A4623; A6253; A6403; A6407; A7526; C9113; C9803; G0378; J0690; J0696; J0885; J1100; J1170; J1644; J1815; J2020; J2185; J2270; J2405; J2543; J3370; J3475; J3490; J7030; J7042; J7050; J7060; P9016

== ENCOUNTER 2022-03-01 19:22 | Inpatient (IN) | payer MEDICAID, OTHER ==
[~2022-03-01] VITALS: Ht 149.9 cm; Wt 58.5 kg
[~2022-03-01 19:22] MED LIST changes: +AMIN30LI2 GT; -CHOL400T11 GT; +EPOE40007 SQ; -FOLI0.8T23 GT; -FOLI0.8T3 GT; +MULT-447 GT; -NUTR1PAC14 GT; -PANT40SU2 GT; -PIPE3.379 IV; +ZINC1CAP2 PO
--- NOTE | 2022-03-01 19:35 | NUR ---
ALISHA FROM [facility] C/O RIGHT HEEL WOUND. PT AWAKE; NONVERBAL. TRACH POTREX 8 INTACT. RT AT PT'S BEDSIDE. GTUBE INTACT. F/C INTACT AND DRAINING URINE. LLE BKA. CONNECTED PT TO POX AND MONITOR. SAFETY MEASURES IN PLACE.
--- NOTE | 2022-03-01 19:40 | NUR ---
PT ON VENT SETTINGS TOLERATING AT 100% SIMVC FIO2 40% VT 550 RR 8 PEEP 5 PS 10
--- NOTE | 2022-03-01 19:45 | NUR ---
NUT SIFTER AT PT'S BEDSIDE
[2022-03-01] MEDS ORDERED: PIPERACILLIN /TAZOBACTAM 3.375 G VIAL IV ONE (19:49)
[2022-03-01] MEDS ORDERED: VANCOMYCIN 1 GM VIAL ONE (19:49)
--- NOTE | 2022-03-01 19:55 | NUR ---
RT NOTE Pt rec'd trached via Portex 8 on [facility] vent on SIMV mode per RT transport. pt shows no signs of resp distress or SOB. Trach is patent and secured. Pt sx'd for thick mod amt of pale yellow secretions. Alarms are set and audible. Ambu bag at bedside. Vent plugged into red outlet. Addendum: 03/01/22 at 1958 by ZAC RUSSELL RT Amended: Links added.
[2022-03-01] MEDS ORDERED: VANCOMYCIN 1 GM in IV D5W 250 ML IV ONE (20:00)
[2022-03-01] MEDS ORDERED: PIPERACILLIN /TAZOBACTAM 3.375 G in IV D5W 50 ML IV ONE (20:00)
--- NOTE | 2022-03-01 20:13 | NUR ---
L HAND #20G S/L BLOOD AND COVID ANTIGEN SWAB COLLECTED AND SENT TO LAB
[2022-03-01 20:18] LABS: BASOPHILS % (AUTO) 0.2 % (0.0-2.0); EOSINOPHILS % (AUTO) 6.4 % (0.0-6.0); HEMATOCRIT 26 % (33-45); HEMOGLOBIN 8.4 g/dL (11.5-14.8); LYMPHOCYTES # (AUTO) 2.2 K/uL (0.8-4.8); LYMPHOCYTES % (AUTO) 10.8 % (20.0-44.0); MEAN CORPUSCULAR HGB CONC 33 g/dl (31.0-36.0); MEAN CORPUSCULAR VOLUME 101 fL (82-100); MONOCYTES # (AUTO) 0.9 K/uL (0.1-1.30); MONOCYTES % (AUTO) 4.5 % (2.0-12.0); NEUTROPHILS # (AUTO) 15.7 K/uL (1.8-8.9); NEUTROPHILS % (AUTO) 78.1 % (43.0-81.0); PLATELET COUNT (AUTO) 386 K/uL (150-450); RED BLOOD CELL COUNT(AUTO) 2.53 MIL/uL (4.0-5.2); WHITE BLOOD COUNT (AUTO) 20.1 K/uL (4.3-11.0)
--- NOTE | 2022-03-01 20:25 | NUR ---
Note billone in EDM - 03/01/22 at 2037 by EVANGELINA ALISHA FROM [facility] C/O RIGHT HEEL WOUND. PT AWAKE; NONVERBAL. TRACH POTREX 8 INTACT. RT AT PT'S BEDSIDE. GTUBE INTACT. F/C INTACT AND DRAINING URINE. LLE BKA. CONNECTED PT TO POX AND MONITOR. SAFETY MEASURES IN PLACE.
[2022-03-01 20:54] LABS: C-REACTIVE PROTEIN 16.7 mg/dL (0.0-0.9)
[2022-03-01 20:59] LABS: CALCIUM, SERUM 8.9 mg/dL (8.5-10.1); CREATININE 2.1 mg/dL (0.6-1.3); POTASSIUM 4.9 mmol/L (3.5-5.1)
--- NOTE | 2022-03-01 21:01 | NUR ---
CRITICAL LAB BUN 100
--- NOTE | 2022-03-01 21:26 | NUR ---
UPDATE GIVEN OVER PHONE TO ERIKA
[2022-03-01] MEDS ORDERED: IV NS 0.9% 1,000 ML IV ONE (23:00)
--- NOTE | 2022-03-02 05:56 | NUR ---
ADMITTING CALLED LAST SCOURER FOR TRANSFER UPDATE. NO ANSWER WILL CALL BACK AGAIN.
--- NOTE | 2022-03-02 08:23 | NUR ---
SPOKE WITH PETEY ADKINS [facility]. AWAITING CALL BACK WITH CM CONTACT INFO.
--- NOTE | 2022-03-02 08:59 | NUR ---
ADMITTING SPOKE WITH LUBE WORKER MAY, PT IS OK TO STAY.
--- NOTE | 2022-03-02 09:24 | NUR ---
MOVE SHEET SUBMITTED.
[2022-03-02] MEDS ORDERED: ONDANSETRON HCL/PF 4 MG/2 ML VIAL IVP PRN (10:30)
[2022-03-02] MEDS ORDERED: MAGNESIUM HYDROXIDE 30 ML UDC PO PRN (10:30)
[2022-03-02] MEDS ORDERED: Z GUARD REMEDY 4 OZ OINT TP PRN (10:30)
[2022-03-02] MEDS ORDERED: MAG HYDROX/AL HYDROX/SIMETH 30 ML UDC PO PRN (10:30)
[2022-03-02] MEDS ORDERED: ACETAMINOPHEN 325 MG TABLET PO PRN (10:30)
[2022-03-02] MEDS: ZOSYN IVPB 2.25 G in IV D5W 50ml IV SCH ×2 (16:10→20:34)
--- NOTE | 2022-03-02 16:49 | NUR ---
REPORT GIVEN TO AKILAH JONES FOR NEIL.
--- NOTE | 2022-03-02 16:53 | NUR ---
TRANSFERRED TO BED 327 IN STABLE CONDITION
[2022-03-02] MEDS ORDERED: ACETAMINOPHEN ES 500 MG TABLET GT PRN (18:00)
[2022-03-02] MEDS ORDERED: MAGNESIUM HYDROXIDE 30 ML UDC GT PRN (18:00)
[2022-03-02] MEDS ORDERED: NA PHOS,M-B/NA PHOS,DI-BA 1 EA ENEMA RC PRN (18:00)
[2022-03-02] MEDS ORDERED: Medication Not On Formulary EA (Ipratropium/Albuterol Sulfate (Combivent Respimat 20-100 IH PRN (18:00)
[2022-03-02] MEDS ORDERED: MIDODRINE HCL (5MG) 5 MG TABLET GT PRN (18:00)
[2022-03-02] MEDS ORDERED: DEXTROSE 50%-WATER 50 ML DISP.SYRIN IV PRN (18:00)
[2022-03-02] MEDS ORDERED: BISACODYL SUPP (10 MG) 10 MG/SUPP.RECT SUPP.RECT RC PRN (18:00)
[2022-03-02] MEDS ORDERED: GLUCERNA 1.5 1,000 ML BOTTLE GT SCH (18:00)
[2022-03-02] MEDS ORDERED: HYDROCODONE/APAP 5/325MG TABLET GT PRN (18:00)
[2022-03-02] MEDS ORDERED: Medication Not On Formulary EA (Ipratropium/Albuterol Sulfate (Combivent Respimat 20-100 IH SCH (18:00)
--- NOTE | 2022-03-02 18:00 | NUR ---
RN NOTE PATIENT ADMITTED FROM ER WITH ZOHREH ADMIT DX IS WOUND, LEFT HEEL OSTEOMYELITIS REPORTED BY KARLA/RN. RESPIRATORY EVEN AND UNLABORED WITH VENTILATOR, TRACH NUMBER IS [id number]. PATIENT HAS MULTIPLE WOUND, AND PICTURE TAKEN. KEPT ELEVATED HOB, CALL LIGHT WITHIN REACH, WILL CONTINUE TO MONITOR.
--- NOTE | 2022-03-02 18:15 | NUR ---
PATIENT NOTICED POSITIVE MRSA REPORTED BY [facility] MADE AWARE AND NEW ORDER: APPLY BACTROBAN BID BOTH NARES X 5 DAYS. NOTED AND CARRY OUT.
[2022-03-02] MEDS ORDERED: ACETAMINOPHEN 650 MG/20.3 ML UDC PO PRN (18:30)
[2022-03-02] MEDS ORDERED: ALBUTEROL FS 2.5 MG/0.5 ML VIAL.NEB NEB PRN (18:30)
[2022-03-02] MEDS ORDERED: IPRATROPIUM NEB FS 0.5 MG/2.5 ML AMPUL.NEB NEB PRN (18:30)
[2022-03-02] MEDS ORDERED: HEPARIN SODIUM, PORCINE 5000 UNITS/1 ML VIAL IV ONE (18:30)
[2022-03-02] MEDS: BLOOD SUGAR DIAGNOSTIC 1 EACH STRIP IN SCH ×2 (18:49→23:28)
[2022-03-02] MEDS: VANCOMYCIN 500 MG in IV D5W 100 ML IV SCH (19:28)
--- NOTE | 2022-03-02 19:42 | NUR ---
RN OPENING NOTE; RECEIVED PATIENT IN BED WITH EYES CLOSED BUT EASY TO AROUSED,ON VENT ASSIST PT TYRONE WELL NO SIGN SOB/DISTRESS NOTED,NO FACIAL GRIMACE FOR PAIN/DISCOMFORT AT THIS TIME,IV ACCESS LH 20G,PATENT AND INTACT,SAFETY MEASURE IN PLACE,CALL LIGHT WITHIN REACH,WILL CONTINUE TO MONITOR.
[2022-03-02] MEDS: ALBUTEROL FS 2.5 MG/0.5 ML VIAL.NEB NEB SCH (19:44)
[2022-03-02] MEDS: IPRATROPIUM NEB FS 0.5 MG/2.5 ML AMPUL.NEB NEB SCH (19:44)
[2022-03-02 20:00] VITALS: BP 112/68
[2022-03-02] MEDS: IV NS 0.9% 1,000 ML IV PRN (20:00)
[2022-03-02] MEDS: MUPIROCIN OINT 2% 22 GM TUBE NS SCH (20:34)
[2022-03-02] MEDS: INSULIN GLARGINE, 100 UNIT/ML CARTRIDGE SQ SCH (21:09)
[2022-03-02] MEDS ORDERED: ZOLPIDEM TARTRATE 5 MG TABLET PO PRN (22:00)
[2022-03-02] MEDS: INSULIN REGULAR, HUMAN 100 UNIT/ML 3 ML VIAL SQ PRN (23:27)
[2022-03-03] VITALS: BP 115/53
[2022-03-03] MEDS: IPRATROPIUM NEB FS 0.5 MG/2.5 ML AMPUL.NEB NEB SCH ×4 (01:39→19:39)
[2022-03-03] MEDS: ALBUTEROL FS 2.5 MG/0.5 ML VIAL.NEB NEB SCH ×4 (01:39→19:39)
[2022-03-03] MEDS ORDERED: NEPRO 1,000 ML BOTTLE GT SCH ×2 (03:00→08:00)
[2022-03-03 04:00] VITALS: BP 118/60
[2022-03-03] MEDS: ZOSYN IVPB 2.25 G in IV D5W 50ml IV SCH ×3 (04:22→21:55)
[2022-03-03] MEDS: INSULIN REGULAR, HUMAN 100 UNIT/ML 3 ML VIAL SQ PRN ×5 (05:17→23:51)
[2022-03-03] MEDS: BLOOD SUGAR DIAGNOSTIC 1 EACH STRIP IN SCH ×4 (05:38→23:51)
[2022-03-03] MEDS: HEPARIN SODIUM, PORCINE 5000 UNITS/1 ML VIAL SQ SCH ×2 (06:03→18:05)
--- NOTE | 2022-03-03 06:30 | NUR ---
RN CLOSING NOTE; PATIENT IN BED WITH EYES CLOSED BUT EASY TO AROUSED,ON VENT ASSIST PT TYRONE WELL NO SIGN SOB/DISTRESS NOTED,NO FACIAL GRIMACE FOR PAIN/DISCOMFORT DURING SHIFT,DUE MEDS GIVEN ORDER,ALL NEEDS ATTENDED,IV ACCESS LH 20G,PATENT AND INTACT,FC DRAINING KYRA URINE 1200ML OUTPUT,SAFETY MEASURE IN PLACE,CALL LIGHT WITHIN REACH,WILL ENDORSED TO NEXT SHIFT.
[2022-03-03 07:21] LABS: BASOPHILS % (AUTO) 0.2 % (0.0-2.0); EOSINOPHILS % (AUTO) 6.6 % (0.0-6.0); HEMATOCRIT 21 % (33-45); LYMPHOCYTES # (AUTO) 1.5 K/uL (0.8-4.8); LYMPHOCYTES % (AUTO) 11.2 % (20.0-44.0); MEAN CORPUSCULAR HGB CONC 33 g/dl (31.0-36.0); MEAN CORPUSCULAR VOLUME 102 fL (82-100); MONOCYTES # (AUTO) 0.9 K/uL (0.1-1.30); MONOCYTES % (AUTO) 6.8 % (2.0-12.0); NEUTROPHILS # (AUTO) 10.3 K/uL (1.8-8.9); NEUTROPHILS % (AUTO) 75.2 % (43.0-81.0); PLATELET COUNT (AUTO) 319 K/uL (150-450); RED BLOOD CELL COUNT(AUTO) 2.09 MIL/uL (4.0-5.2); WHITE BLOOD COUNT (AUTO) 13.7 K/uL (4.3-11.0)
--- NOTE | 2022-03-03 07:30 | NUR ---
ADVICE NURSE OPENING NOTES RECEIVED PATIENT RESTING ON BED, OBTUNDED. ON MECHANICAL VENTILATOR TOLERATING CURRENT SETTINGS WELL. NO SOB NOTED. NOT IN DISTRESS. IN NO SIGNS OF PAIN AT THIS TIME VIA FLACC LEVEL OF PAIN. ON NEPRO 1.8 AT 45CC/HR VIA G-TUBE TOLERATING WELL. ON TELE MONITOR CURRENTLY READING SINUS TACHYCARDIA AT 107BPM. WITH IV ACCESS AT THE LEFT HAND G20 WITH IVF NS AT 75ML/HR INFUSING WELL. SAFETY MEASURES IN PLACED. CALL LIGHT WITHIN REACH. BED ON LOWEST LOCKED POSITION, SIDE RAILS UP X2. WILL CONTINUE TO MONITOR.
[2022-03-03 07:39] LABS: CALCIUM, SERUM 8.5 mg/dL (8.5-10.1); CREATININE 2.1 mg/dL (0.6-1.3); PHOSPHORUS 3.6 mg/dL (2.5-4.9); POTASSIUM 4.6 mmol/L (3.5-5.1)
[2022-03-03 08:00] VITALS: BP 105/32
[2022-03-03] MEDS: FERROUS SULFATE UDC 300 MG/5 ML UDC GT SCH (08:58)
[2022-03-03] MEDS: CHLORHEXIDINE GLUCONATE 15 ML UDC MM SCH ×2 (08:58→16:46)
[2022-03-03] MEDS: PANTOPRAZOLE 40 MG TABLET.DR PO SCH (08:58)
[2022-03-03] MEDS: ZINC SULFATE 220 MG CAPSULE PO SCH (08:59)
[2022-03-03] MEDS: ASCORBIC ACID 500 MG TABLET GT SCH (08:59)
[2022-03-03] MEDS: MULTIVITAMINS,THERAGRAN 1 UDTAB TABLET GT SCH (08:59)
[2022-03-03] MEDS: METOPROLOL TARTRATE 25 MG TABLET GT SCH ×2 (08:59→16:47)
[2022-03-03] MEDS: DOCUSATE SODIUM 100 MG CAPSULE PO SCH (08:59)
[2022-03-03] MEDS: PROSOURCE / PROSTAT (PYXIS) 30 ML UDC GT SCH (09:00)
[2022-03-03] MEDS ORDERED: Medication Not On Formulary EA (Cran/Vitc/Mannose/Inulin/Brom (Uti-Stat Liquid) 3,875 MG GT SCH (09:00)
[2022-03-03] MEDS: AMLODIPINE BESYLATE 5 MG TABLET GT SCH (09:00)
[2022-03-03] MEDS: MUPIROCIN OINT 2% 22 GM TUBE NS SCH ×2 (09:22→21:55)
[2022-03-03 10:30] LABS: IRON, SERUM 38 ug/dl (50-175); TOTAL IRON BINDING CAPACITY 84 ug/dl (250-450)
[2022-03-03 10:45] LABS: FERRITIN 841 ng/mL (8-388)
[2022-03-03] MEDS: IV NS 0.9% 1,000 ML IV PRN (11:47)
[2022-03-03 12:00] VITALS: BP 110/42
[2022-03-03 16:00] VITALS: BP 111/46
--- NOTE | 2022-03-03 18:27 | NUR ---
QUARRY BOSS CLOSING NOTES PATIENT RESTING ON BED, OBTUNDED. ON MECHANICAL VENTILATOR TOLERATING CURRENT SETTINGS WELL. NO SOB NOTED. NOT IN DISTRESS. IN NO SIGNS OF PAIN AT THIS TIME VIA FLACC LEVEL OF PAIN. ON NEPRO 1.8 AT 45CC/HR VIA G-TUBE TOLERATING WELL. ON TELE MONITOR CURRENTLY READING SINUS RHYTHM AT 95BPM. WITH IV ACCESS AT THE LEFT HAND G20 WITH IVF NS AT 75ML/HR INFUSING WELL. DUE MEDS GIVEN. WOUND DRESSING DONE. SAFETY MEASURES IN PLACED. CALL LIGHT WITHIN REACH. BED ON LOWEST LOCKED POSITION, SIDE RAILS UP X2. WILL ENDORSE TO NEXT SHIFT FOR NEIL.
--- NOTE | 2022-03-03 19:26 | NUR ---
RN OPENING NOTE; RECEIVED PATIENT IN BED WITH EYES CLOSED BUT EASY TO AROUSED,ON VENT ASSIST PT TYRONE WELL NO SIGN SOB/DISTRESS NOTED,NO FACIAL GRIMACE FOR PAIN/DISCOMFORT AT THIS TIME,GTUBE FEEDING INTACT RUNNING NEPRO 45ML/HR TYRONE WELL,NO RESIDUAL NOTED,HOB ELEVATED AT ALL TIME, IV ACCESS LH 20G,PATENT AND INTACT,SAFETY MEASURE IN PLACE,CALL LIGHT WITHIN REACH,WILL CONTINUE TO MONITOR.
[2022-03-03] MEDS: VANCOMYCIN 500 MG in IV D5W 100 ML IV SCH (19:39)
[2022-03-03 21:30] VITALS: BP 113/52
[2022-03-03] MEDS: INSULIN GLARGINE, 100 UNIT/ML CARTRIDGE SQ SCH (21:46)
[2022-03-04 00:11] VITALS: BP 109/42
[2022-03-04] MEDS: IPRATROPIUM NEB FS 0.5 MG/2.5 ML AMPUL.NEB NEB SCH ×4 (01:41→20:17)
[2022-03-04] MEDS: ALBUTEROL FS 2.5 MG/0.5 ML VIAL.NEB NEB SCH ×4 (01:41→20:17)
[2022-03-04] MEDS: ZOSYN IVPB 2.25 G in IV D5W 50ml IV SCH ×3 (04:11→21:34)
[2022-03-04] MEDS: IV NS 0.9% 1,000 ML IV PRN ×2 (04:25→16:43)
[2022-03-04 04:51] VITALS: BP 107/48
[2022-03-04] MEDS: INSULIN REGULAR, HUMAN 100 UNIT/ML 3 ML VIAL SQ PRN ×2 (05:48→17:21)
[2022-03-04] MEDS: BLOOD SUGAR DIAGNOSTIC 1 EACH STRIP IN SCH ×3 (05:56→17:16)
[2022-03-04] MEDS: HEPARIN SODIUM, PORCINE 5000 UNITS/1 ML VIAL SQ SCH ×2 (06:10→18:35)
--- NOTE | 2022-03-04 06:23 | NUR ---
RN CLOSING NOTE; PATIENT IN BED WITH EYES CLOSED BUT EASY TO AROUSED,ON VENT ASSIST PT TYRONE WELL SATING 99%,,NO SIGN SOB/DISTRESS NOTED,NO FACIAL GRIMACE FOR PAIN/DISCOMFORT DURING SHIFT,DUE MEDS GIVEN ORDER,ALL NEEDS ATTENDED,IV ACCESS LH 20G,PATENT AND INTACT,FC DRAINING KYRA URINE 700ML OUTPUT,SAFETY MEASURE IN PLACE,CALL LIGHT WITHIN REACH,WILL ENDORSED TO NEXT SHIFT.
[2022-03-04 07:49] LABS: ALBUMIN 2.3 g/dL (3.4-5.0); BILIRUBIN,TOTAL 0.5 mg/dL (0.2-1.0); CALCIUM, SERUM 8.8 mg/dL (8.5-10.1); PHOSPHORUS 2.9 mg/dL (2.5-4.9); POTASSIUM 4.7 mmol/L (3.5-5.1); TOTAL PROTEIN, SERUM 7.4 g/dL (6.4-8.2)
--- NOTE | 2022-03-04 07:50 | NUR ---
DATA COMMUNICATIONS SOFTWARE CONSULTANT OPENING NOTES RECEIVED PATIENT SLEEPING IN BED, EASY TO AROUSED. ON MECHANICAL VENTILATOR TOLERATING CURRENT SETTINGS WELL. NO SOB NOTED. NOT IN DISTRESS. ON NEPRO 1.8 AT 45CC/HR VIA G-TUBE TOLERATING WELL. ON TELE MONITOR CURRENTLY READING SINUS TACHYCARDIA AT 109 BPM. MD AT BEDSIDE, CHANGED THE DRESSING. IV ACCESS AT THE LEFT HAND #20 RUNNING NS AT 75ML/HR INFUSING WELL. SAFETY PRECAUTIONS IN PLACE. BED IN LOWEST LOCKED POSITION, HOB ELEVATED, SIDE RAILS UP X3, AND CALL LIGHT AND TABLE WITHIN REACH. ALL NEEDS MET AT THIS TIME. WILL CONTINUE TO MONITOR AND ASSIST.
[2022-03-04 07:55] LABS: BASOPHILS # (AUTO) 0.1 K/uL (0.0-0.2); BASOPHILS % (AUTO) 0.5 % (0.0-2.0); EOSINOPHILS % (AUTO) 5.8 % (0.0-6.0); HEMATOCRIT 22 % (33-45); HEMOGLOBIN 7.1 g/dL (11.5-14.8); LYMPHOCYTES # (AUTO) 1.9 K/uL (0.8-4.8); LYMPHOCYTES % (AUTO) 15.6 % (20.0-44.0); MEAN CORPUSCULAR HGB CONC 32 g/dl (31.0-36.0); MEAN CORPUSCULAR VOLUME 104 fL (82-100); MONOCYTES # (AUTO) 0.9 K/uL (0.1-1.30); NEUTROPHILS # (AUTO) 8.7 K/uL (1.8-8.9); NEUTROPHILS % (AUTO) 71.1 % (43.0-81.0); PLATELET COUNT (AUTO) 314 K/uL (150-450); RED BLOOD CELL COUNT(AUTO) 2.12 MIL/uL (4.0-5.2); WHITE BLOOD COUNT (AUTO) 12.2 K/uL (4.3-11.0)
[2022-03-04 08:00] VITALS: BP 123/50
[2022-03-04] MEDS: PANTOPRAZOLE 40 MG TABLET.DR PO SCH (08:28)
[2022-03-04] MEDS: CHLORHEXIDINE GLUCONATE 15 ML UDC MM SCH ×2 (08:28→16:30)
[2022-03-04] MEDS: FERROUS SULFATE UDC 300 MG/5 ML UDC GT SCH (08:28)
[2022-03-04] MEDS: MULTIVITAMINS,THERAGRAN 1 UDTAB TABLET GT SCH (08:29)
[2022-03-04] MEDS: DOCUSATE SODIUM 100 MG CAPSULE PO SCH (08:29)
[2022-03-04] MEDS: ASCORBIC ACID 500 MG TABLET GT SCH (08:29)
[2022-03-04] MEDS: METOPROLOL TARTRATE 25 MG TABLET GT SCH ×2 (08:34→16:31)
[2022-03-04] MEDS: AMLODIPINE BESYLATE 5 MG TABLET GT SCH (08:34)
[2022-03-04] MEDS: MUPIROCIN OINT 2% 22 GM TUBE NS SCH ×2 (08:37→21:34)
[2022-03-04] MEDS: PROSOURCE / PROSTAT (PYXIS) 30 ML UDC GT SCH (08:37)
[2022-03-04] MEDS: ZINC SULFATE 220 MG CAPSULE PO SCH (08:45)
--- NOTE | 2022-03-04 09:34 | NUR ---
WOUND CARE CONSULT: PT RESTING AT THIS TIME. REVIEWED CHART, NURSING DOCUMENTATION AND PHOTOS WHICH INDICATE LOWER EXTREMITY WOUNDS AND SACRAL STAGE 4 PRESSURE ULCER WITH SURROUNDING DEEP TISSUE INJURY. DR MEYER CALLED FOR SURGICAL CONSULT. DPM ON CASE FOR LOWER EXTREMITIES. DISCUSSED SKIN PROTECTION WITH NURSING STAFF. PT IS ON HILDA ISOFLEX LOW AIRLOSS BED. M Pastora IN AGREEMENT WITH PLAN OF CARE.
[2022-03-04 12:00] VITALS: BP 116/33
[2022-03-04] MEDS ORDERED: NUT.237L67 GT (12:29)
[2022-03-04] MEDS ORDERED: SODI1TAB66 GT (12:29)
[2022-03-04] MEDS ORDERED: SODI5POW2 GT (12:29)
[2022-03-04] MEDS: EPOETIN ALFA-EPBX 4,000 UNIT/ML VIAL SQ SCH (14:23)
[2022-03-04 16:11] VITALS: BP 114/43
--- NOTE | 2022-03-04 18:40 | NUR ---
MUSIC TYPOGRAPHER CLOSING NOTE PT IN BED WITH EYES CLOSED BUT EASY TO AROUSED, OBTUNDED, ON VENT ASSIST PT TYRONE WELL SATING, NO SOB/DISTRESS NOTED AT THIS TIME. ON PROGRAMMING DIRECTOR READING SR @87 BPM. KEPT CLEAN AND DRY. DUE MEDS GIVEN ORDER, IV ACCESS LEFT HAND 20G,PATENT AND INTACT, RUNNING NS @100ML/HR. SAFETY PRECAUTIONS IN PLACE AT ALL TIMES. BED IN LOWEST LOCKED POSITION, HOB ELEVATED, SIDE RAILS UP X3, CALL LIGHT AND TABLE WITHIN REACH. ALL NEEDS MET AT THIS TIME AND WILL ENDORSE TO NEXT SHIFT FOR NEIL.
[2022-03-04 20:00] VITALS: BP 112/43
[2022-03-04] MEDS: VANCOMYCIN 500 MG in IV D5W 100 ML IV SCH (20:36)
[2022-03-04] MEDS: INSULIN GLARGINE, 100 UNIT/ML CARTRIDGE SQ SCH (22:07)
[2022-03-05] VITALS (11 sets, daily range): BP systolic 109–140; BP diastolic 39–64
[2022-03-05] MEDS: BLOOD SUGAR DIAGNOSTIC 1 EACH STRIP IN SCH ×5 (00:08→23:33)
[2022-03-05] MEDS: INSULIN REGULAR, HUMAN 100 UNIT/ML 3 ML VIAL SQ PRN ×3 (00:08→12:47)
[2022-03-05] MEDS: IV NS 0.9% 1,000 ML IV PRN ×2 (01:38→12:46)
[2022-03-05] MEDS: ALBUTEROL FS 2.5 MG/0.5 ML VIAL.NEB NEB SCH ×4 (01:50→20:13)
[2022-03-05] MEDS: IPRATROPIUM NEB FS 0.5 MG/2.5 ML AMPUL.NEB NEB SCH ×4 (01:50→20:13)
[2022-03-05] MEDS: ZOSYN IVPB 2.25 G in IV D5W 50ml IV SCH ×3 (04:25→22:22)
[2022-03-05] MEDS: HEPARIN SODIUM, PORCINE 5000 UNITS/1 ML VIAL SQ SCH ×2 (06:05→18:29)
--- NOTE | 2022-03-05 06:23 | NUR ---
RN CLOSING NOTE; PATIENT IN BED WITH EYES CLOSED BUT EASY TO AROUSED,ON VENT ASSIST PT TYRONE WELL SATING 97%,,NO SIGN SOB/DISTRESS NOTED,NO FACIAL GRIMACE FOR PAIN/DISCOMFORT DURING SHIFT,DUE MEDS GIVEN ORDER,ALL NEEDS ATTENDED,IV ACCESS LH 20G,PATENT AND INTACT,RUNNING NS @100ML/HR,TYRONE WELL,FC DRAINING KYRA URINE 700ML OUTPUT,SAFETY MEASURE IN PLACE,CALL LIGHT WITHIN REACH,WILL ENDORSED TO NEXT SHIFT.
[2022-03-05 07:29] LABS: BASOPHILS % (AUTO) 0.4 % (0.0-2.0); EOSINOPHILS % (AUTO) 9.8 % (0.0-6.0); LYMPHOCYTES # (AUTO) 1.4 K/uL (0.8-4.8); LYMPHOCYTES % (AUTO) 13.9 % (20.0-44.0); MEAN CORPUSCULAR HGB CONC 32 g/dl (31.0-36.0); MEAN CORPUSCULAR VOLUME 105 fL (82-100); MONOCYTES # (AUTO) 0.6 K/uL (0.1-1.30); MONOCYTES % (AUTO) 6.1 % (2.0-12.0); NEUTROPHILS # (AUTO) 7.3 K/uL (1.8-8.9); NEUTROPHILS % (AUTO) 69.8 % (43.0-81.0); PLATELET COUNT (AUTO) 236 K/uL (150-450); WHITE BLOOD COUNT (AUTO) 10.4 K/uL (4.3-11.0)
[2022-03-05 07:41] LABS: RED BLOOD CELL COUNT(AUTO) 1.78 MIL/uL (4.0-5.2)
[2022-03-05 07:47] LABS: HEMATOCRIT 19 % (33-45)
[2022-03-05 08:00] LABS: CREATININE 1.9 mg/dL (0.6-1.3); MAGNESIUM 1.9 mg/dL (1.8-2.4); PHOSPHORUS 2.9 mg/dL (2.5-4.9); POTASSIUM 4.5 mmol/L (3.5-5.1)
[2022-03-05] MEDS: FERROUS SULFATE UDC 300 MG/5 ML UDC GT SCH (08:49)
[2022-03-05] MEDS: ZINC SULFATE 220 MG CAPSULE PO SCH (08:49)
[2022-03-05] MEDS: DOCUSATE SODIUM 100 MG CAPSULE PO SCH (08:49)
[2022-03-05] MEDS: AMLODIPINE BESYLATE 5 MG TABLET GT SCH (08:49)
[2022-03-05] MEDS: PANTOPRAZOLE 40 MG TABLET.DR PO SCH (08:49)
[2022-03-05] MEDS: ASCORBIC ACID 500 MG TABLET GT SCH (08:49)
[2022-03-05] MEDS: PROSOURCE / PROSTAT (PYXIS) 30 ML UDC GT SCH (08:49)
[2022-03-05] MEDS: MULTIVITAMINS,THERAGRAN 1 UDTAB TABLET GT SCH (08:49)
[2022-03-05] MEDS: CHLORHEXIDINE GLUCONATE 15 ML UDC MM SCH ×2 (08:50→17:11)
[2022-03-05] MEDS: MUPIROCIN OINT 2% 22 GM TUBE NS SCH ×2 (08:50→22:26)
[2022-03-05] MEDS: METOPROLOL TARTRATE 25 MG TABLET GT SCH ×2 (08:50→17:13)
[2022-03-05 12:39] LABS: BAND % (MANUAL) 1 % (0.0-5.0); EOSINOPHILS % (MANUAL) 6 % (0-4); LYMPHOCYTES % (MANUAL) 20 % (16-48); MONOCYTES % (MANUAL) 3 % (0-11.0); NEUTROPHILS % (MANUAL) 70 (42-76)
--- NOTE | 2022-03-05 18:23 | NUR ---
END OF SHIFT SUMMARY PATIENT IS OBTUNDED. ON [facility], REMAINS ON SAME SETTINGS. SR ON THE TELEMONITOR. OH CATHETER IN PLACE DRAINING WELL TO GRAVITY. GT FEEDING RUNNING AT 100 ML/HR, TOLERATING FEEDING WELL. MIDLINE HAS BEEN INSERTED TODAY ON CARL. L ARM #20G, NS RUNNING AT 100 ML/HR, BOTH INTACT AND PATENT. PLAN FOR SURGERY TOMORROW - R AKA, CONSENT HAS BEEN SIGNED. OBTAINED CONSENT WITH ELENA (SON) THRU TELEPHONE. SAFETY MEASURES MAINTAINED. BED IN LOWEST POSITION, BRAKES LOCKED. SIDE RAILS UP X2. CALL LIGHT WITHIN REACH. WILL ENDORSE CONTINUITY OF CARE TO ONCOMING SHIFT.
--- NOTE | 2022-03-05 20:00 | NUR ---
RN OPENING NOTES PATIENT IS OBTUNDED. ON [facility] VENT, REMAINS ON SAME SETTINGS. SR ON THE TELEMONITOR. OH CATHETER IN PLACE DRAINING WELL TO GRAVITY. GT FEEDING RUNNING AT 60 ML/HR, TOLERATING FEEDING WELL. CARL MIDLINE #20G INFUSING NS AT 100 ML/HR, LEFT HAND #20, BOTH INTACT AND PATENT. SAFETY MEASURES MAINTAINED. BED IN LOWEST POSITION, BRAKES LOCKED. SIDE RAILS UP X2. CALL LIGHT WITHIN REACH. WILL CONTINUE TO MONITOR THROUGHOUT THE SHIFT.
[2022-03-05] MEDS: VANCOMYCIN 500 MG in IV D5W 100 ML IV SCH (22:23)
[2022-03-05] MEDS: THERAHONEY GEL 1.5 OZ TUBE TP SCH (22:26)
[2022-03-05] MEDS: INSULIN GLARGINE, 100 UNIT/ML CARTRIDGE SQ SCH (22:28)
--- NOTE | 2022-03-05 23:30 | NUR ---
RN NOTES - HELD INSULIN FOR NOW. FOR SURGERY TOMORROW AT 1600.
[2022-03-06] MEDS: INSULIN REGULAR, HUMAN 100 UNIT/ML 3 ML VIAL SQ PRN ×3 (00:01→17:46)
[2022-03-06 00:34] VITALS: BP 148/60
[2022-03-06] MEDS: IPRATROPIUM NEB FS 0.5 MG/2.5 ML AMPUL.NEB NEB SCH ×4 (01:11→20:36)
[2022-03-06] MEDS: ALBUTEROL FS 2.5 MG/0.5 ML VIAL.NEB NEB SCH ×4 (01:11→20:36)
--- NOTE | 2022-03-06 04:00 | NUR ---
RN NOTES - HELD FEEDING ON NPO STATUS. SCHEDULED SURGERY AT 1600 TODAY.
[2022-03-06] MEDS: ZOSYN IVPB 2.25 G in IV D5W 50ml IV SCH ×3 (05:04→21:39)
[2022-03-06] MEDS: IV NS 0.9% 1,000 ML IV PRN (05:30)
[2022-03-06] MEDS: BLOOD SUGAR DIAGNOSTIC 1 EACH STRIP IN SCH ×3 (06:05→17:45)
[2022-03-06 06:12] LABS: BASOPHILS % (AUTO) 0.4 % (0.0-2.0); EOSINOPHILS % (AUTO) 7.9 % (0.0-6.0); HEMATOCRIT 23 % (33-45); HEMOGLOBIN 7.4 g/dL (11.5-14.8); LYMPHOCYTES # (AUTO) 1.8 K/uL (0.8-4.8); LYMPHOCYTES % (AUTO) 14.8 % (20.0-44.0); MEAN CORPUSCULAR HGB CONC 32 g/dl (31.0-36.0); MEAN CORPUSCULAR VOLUME 98 fL (82-100); MONOCYTES # (AUTO) 0.8 K/uL (0.1-1.30); MONOCYTES % (AUTO) 6.8 % (2.0-12.0); NEUTROPHILS # (AUTO) 8.5 K/uL (1.8-8.9); NEUTROPHILS % (AUTO) 70.1 % (43.0-81.0); PLATELET COUNT (AUTO) 232 K/uL (150-450); RED BLOOD CELL COUNT(AUTO) 2.33 MIL/uL (4.0-5.2); WHITE BLOOD COUNT (AUTO) 12.1 K/uL (4.3-11.0)
[2022-03-06 06:40] LABS: CALCIUM, SERUM 8.3 mg/dL (8.5-10.1); CREATININE 1.8 mg/dL (0.6-1.3); POTASSIUM 4.7 mmol/L (3.5-5.1)
--- NOTE | 2022-03-06 06:51 | NUR ---
RN NOTES - BLOOD SUGAR 200. HELD INSULIN PER SLIDING SCALE FOR NOW. ON NPO STATUS.
--- NOTE | 2022-03-06 06:57 | NUR ---
RN CLOSING NOTES PATIENT IS OBTUNDED. ON [facility], REMAINS ON SAME SETTINGS. SR ON THE TELEMONITOR. OH CATHETER IN PLACE DRAINING WELL TO GRAVITY. GT FEEDING ON HOLD. CARL MIDLINE #20G INFUSING NS AT 100 ML/HR, LEFT HAND #20, BOTH INTACT AND PATENT. SAFETY MEASURES MAINTAINED. BED IN LOWEST POSITION, BRAKES LOCKED. SIDE RAILS UP X2. CALL LIGHT WITHIN REACH. WILL CONTINUE TO MONITOR THROUGHOUT THE SHIFT.
[2022-03-06] MEDS: PANTOPRAZOLE 40 MG TABLET.DR PO SCH (07:59)
[2022-03-06] MEDS ORDERED: LIDOCAINE HCL/MPF 1% 30 ML VIAL IJ ONE (08:59)
[2022-03-06] MEDS: CHLORHEXIDINE GLUCONATE 15 ML UDC MM SCH ×2 (09:16→17:53)
[2022-03-06] MEDS: MULTIVITAMINS,THERAGRAN 1 UDTAB TABLET GT SCH (09:16)
[2022-03-06] MEDS: ASCORBIC ACID 500 MG TABLET GT SCH (09:16)
[2022-03-06] MEDS: DOCUSATE SODIUM 100 MG CAPSULE PO SCH (09:16)
[2022-03-06] MEDS: ZINC SULFATE 220 MG CAPSULE PO SCH (09:16)
[2022-03-06] MEDS: FERROUS SULFATE UDC 300 MG/5 ML UDC GT SCH (09:16)
[2022-03-06] MEDS: AMLODIPINE BESYLATE 5 MG TABLET GT SCH (09:18)
[2022-03-06] MEDS: METOPROLOL TARTRATE 25 MG TABLET GT SCH ×2 (09:18→17:54)
[2022-03-06] MEDS: PROSOURCE / PROSTAT (PYXIS) 30 ML UDC GT SCH (09:19)
[2022-03-06] MEDS: THERAHONEY GEL 1.5 OZ TUBE TP SCH ×2 (09:50→12:57)
[2022-03-06] MEDS: MUPIROCIN OINT 2% 22 GM TUBE NS SCH ×2 (09:50→10:00)
--- NOTE | 2022-03-06 10:03 | NUR ---
RN NOTES RECEIVED PT ASLEEP PT , MULTIPLE ATTEMPTS MADE TO CONTACT SON & DAUGHTER TO RECEIVE AUTHORIZATION AND CONSENT FOR DEBRIDEMENT OF WOUND - HAVE NOT BEEN ABLE TO MAKE CONTACT WITH EITHER AT THIS TIME, VOICE MESSAGE LEFT, PT IS OBTUNDED & ON [facility] VENT, SETTINGS IN PLACE AND NO CHANGES AT THIS TIME, SR NOTED ON THE TELEMONITOR. F/C IN PLACE DRAINING WELL TO GRAVITY. NPO - -GT FEEDING ON HOLD. CARL MIDLINE #20G INFUSING NS AT 100 ML/HR, LEFT HAND #20, BOTH INTACT AND PATENT. SAFETY MEASURES IN PLACE, BED IN LOWEST POSITION, BRAKES LOCKED, SIDE RAILS UP X2, CALL LIGHT WITHIN REACH, PT SCHEDULED FOR SURGERY FOR [facility] POSSIBLE TO BE MOVED UP IN TIME ON SCHEDULE. WAS SET FOR 1600 MAY OCCUR AT 1300.
[2022-03-06] MEDS ORDERED: LIDOCAINE HCL/PF 1% 30 ML VIAL IJ ONE (10:22)
[2022-03-06] MEDS: EPOETIN ALFA-EPBX 4,000 UNIT/ML VIAL SQ SCH (14:03)
[2022-03-06] MEDS: IV 1/2NS 1000 ML 1,000 ML IV SCH ×2 (15:30→17:56)
[2022-03-06] MEDS ORDERED: FENTANYL PF 100MCG/2ML AMPUL ONE ×2 (15:43→16:36)
--- NOTE | 2022-03-06 16:05 | NUR ---
RN NOTES PT TRANSFERRED TO SURGERY 1406 PM, ALL DOCUMENTS SENT WITH SURGICAL TEAM, ANESTHESIA, BLOOD TRANSFUSION, CHECK LIST, TRANSFERRED BY 2 RN TO SURGERY ROOM. DESK PARKING CONTROL OFFICER AND MYSELF WITNESS ALL DOCUMENTS TRANSFERRED WITH PT NOW SURGERY IS CALLING MISSING THE CHECK LIST, WE WILL RE-DO ANOTHER CHECKLIST AND SEND IT DOWN.
--- NOTE | 2022-03-06 18:13 | NUR ---
RN NOTES PT RETURNED FROM SURGERY 1800, BLOOD DRAW TAKING PLACE, BIOFUELS PLANT OPERATIONS ENGINEER MONITORING PT HEART RATE WITH ECG MACHINE AT THIS TIME NORMAL RHYTHM NOTED, G- TUBE PATENT FLUSHING WELL, GAVE MD ORDERS OF MEDICATION BS =131 - 2 UNITS OF INSULIN GIVEN SUBQ PT REPOSITIONED AND MADE COMFORTABLE POSSIBLE, WARM BLANKET GIVEN. ORAL CARE PROVIDED. PT TOLERATING POST OP WELL AT THIS TIME. MONITORING VS CLOSELY NO SIGNIFICANT CHANGES NOTED.
--- NOTE | 2022-03-06 19:50 | NUR ---
COSTUME MAKER OPENING NOTE PATIENT IN BED WITH EYES CLOSED, PT NON-VERBAL. PT ON MECHANICAL VENT, NO S/S OF DISTRESS OR SOB NOTED, BREATHING EVEN AND UNLABORED, SPO2; 100%. PT ON EXTERNAL INVESTMENT ASSOCIATE READING SINUS RHYTHM: HR: 90. PATIENT S/P RIGHT ABOVE THE KNEE AMPUTATION WITH ABDOULAYE DRAIN, APPROXIMATELY 40 ML SANGUINOUS OUTPUT AT THIS TIME. IV ACCESS CARL MIDLINE INTACT AND INFUSING 1/2 NS @100 ML/HR. GT FEEDING INFUSING NEPRO @ 45 ML/HR. OH CATHETER IN PLACE AND DRAINING YELLOW URINE BY GRAVITY. SAFETY MEASURES IN PLACE: CALL LIGHT WITHIN REACH, SIDE RAILS UP X 3, BED LOCKED IN LOWEST POSITION, BED ALARM ON. WILL CONTINUE TO MONITOR PATIENT
[2022-03-06 19:54] LABS: HEMOGLOBIN 10.7 g/dL (11.5-14.8)
[2022-03-06 20:00] VITALS: BP 158/73
[2022-03-06] MEDS: VANCOMYCIN 500 MG in IV D5W 100 ML IV SCH (20:05)
[2022-03-06] MEDS ORDERED: INSULIN GLARGINE, 100 UNIT/ML CARTRIDGE SQ SCH (22:00)
[2022-03-07] MEDS: BLOOD SUGAR DIAGNOSTIC 1 EACH STRIP IN SCH ×5 (00:22→23:53)
[2022-03-07] MEDS: INSULIN REGULAR, HUMAN 100 UNIT/ML 3 ML VIAL SQ PRN ×3 (00:29→19:05)
[2022-03-07 01:05] VITALS: BP 145/65
[2022-03-07] MEDS: IPRATROPIUM NEB FS 0.5 MG/2.5 ML AMPUL.NEB NEB SCH ×4 (01:19→19:59)
[2022-03-07] MEDS: ALBUTEROL FS 2.5 MG/0.5 ML VIAL.NEB NEB SCH ×4 (01:19→19:59)
[2022-03-07 05:02] VITALS: BP 112/64
[2022-03-07] MEDS: ZOSYN IVPB 2.25 G in IV D5W 50ml IV SCH ×3 (05:25→21:28)
[2022-03-07] MEDS: NEPRO 1,000 ML BOTTLE GT PRN (05:58)
--- NOTE | 2022-03-07 07:31 | NUR ---
ACADEMY EDUCATION DIRECTOR CLOSING NOTE PATIENT IN BED WITH EYES CLOSED, PT NON-VERBAL, OBTUNDED. PT ON MECHANICAL VENT AND TOLERATING WELL, NO S/S OF DISTRESS OR SOB NOTED, BREATHING EVEN AND UNLABORED, SPO2; 100%. PT ON EXTERNAL VOLLEYBALL COACH READING SINUS RHYTHM TO SINUS TACHY (HIGHEST HR 112) CURRENT HR: 98. PATIENT S/P RIGHT ABOVE THE KNEE AMPUTATION WITH ABDOULAYE DRAIN, 100 ML SANGUINOUS OUTPUT THIS SHIFT. IV ACCESS CARL MIDLINE INTACT AND INFUSING 1/2 NS @100 ML/HR. GT FEEDING INFUSING NEPRO @ 45 ML/HR. OH CATHETER IN PLACE AND DRAINING YELLOW URINE BY GRAVITY. MEDICATIONS GIVEN ORDERED, PT NEEDS MET THROUGHOUT SHIFT, SACRAL WOUND CARE DONE. SAFETY MEASURES IN PLACE: CALL LIGHT WITHIN REACH, SIDE RAILS UP X 3, BED LOCKED IN LOWEST POSITION, HOB ELEVATED, BED ALARM ON. ENDORSED TO DAYSHIFT RN FOR CONTINUITY OF CARE
[2022-03-07 07:34] LABS: BASOPHILS % (AUTO) 0.3 % (0.0-2.0); EOSINOPHILS % (AUTO) 3.3 % (0.0-6.0); HEMATOCRIT 27 % (33-45); HEMOGLOBIN 8.7 g/dL (11.5-14.8); LYMPHOCYTES # (AUTO) 1.7 K/uL (0.8-4.8); LYMPHOCYTES % (AUTO) 14.3 % (20.0-44.0); MEAN CORPUSCULAR HGB CONC 32 g/dl (31.0-36.0); MEAN CORPUSCULAR VOLUME 91 fL (82-100); MONOCYTES # (AUTO) 0.6 K/uL (0.1-1.30); MONOCYTES % (AUTO) 5.2 % (2.0-12.0); NEUTROPHILS # (AUTO) 9.3 K/uL (1.8-8.9); NEUTROPHILS % (AUTO) 76.9 % (43.0-81.0); PLATELET COUNT (AUTO) 208 K/uL (150-450); RED BLOOD CELL COUNT(AUTO) 2.93 MIL/uL (4.0-5.2)
--- NOTE | 2022-03-07 07:35 | NUR ---
ms rn received on bed, non verbal patient,vent dependent, w/ adequate saturation, g tube intact at 45ml/hour, tolerating well w/o residual, kaur to gravity bag w/ yellowish urine output,bilateral above knee amputation noted, recent one at right knee, w/ noni bandage dry and intact,connected to natasha drain w/ sanguineous output, no s/s of pain noted, repositioned for comfort,all needs attended.
[2022-03-07] MEDS: PANTOPRAZOLE 40 MG TABLET.DR PO SCH (07:49)
[2022-03-07 07:56] LABS: CALCIUM, SERUM 8.3 mg/dL (8.5-10.1); CREATININE 1.7 mg/dL (0.6-1.3); MAGNESIUM 1.7 mg/dL (1.8-2.4); POTASSIUM 4.3 mmol/L (3.5-5.1)
[2022-03-07 08:00] VITALS: BP 135/52
[2022-03-07] MEDS: CHLORHEXIDINE GLUCONATE 15 ML UDC MM SCH ×2 (08:51→19:03)
[2022-03-07] MEDS: PROSOURCE / PROSTAT (PYXIS) 30 ML UDC GT SCH (08:51)
[2022-03-07] MEDS: DOCUSATE SODIUM 100 MG CAPSULE PO SCH (08:52)
[2022-03-07] MEDS: ASCORBIC ACID 500 MG TABLET GT SCH (08:52)
[2022-03-07] MEDS: FERROUS SULFATE UDC 300 MG/5 ML UDC GT SCH (08:52)
[2022-03-07] MEDS: AMLODIPINE BESYLATE 5 MG TABLET GT SCH (08:53)
[2022-03-07] MEDS: ZINC SULFATE 220 MG CAPSULE PO SCH (08:54)
[2022-03-07] MEDS: MULTIVITAMINS,THERAGRAN 1 UDTAB TABLET GT SCH (09:01)
[2022-03-07] MEDS: METOPROLOL TARTRATE 25 MG TABLET GT SCH ×2 (09:19→17:00)
--- NOTE | 2022-03-07 09:20 | NUR ---
ms rn due meds given via g tube,tolerated well w/o residual.
[2022-03-07] MEDS: Magnesium 1GM/D5W 100ML PREMIX 100 ML IV SCH ×2 (09:24→10:46)
[2022-03-07] MEDS: THERAHONEY GEL 1.5 OZ TUBE TP SCH (09:37)
[2022-03-07] MEDS: MUPIROCIN OINT 2% 22 GM TUBE NS SCH ×2 (09:38→21:17)
--- NOTE | 2022-03-07 12:00 | NUR ---
ms rn repositioned for comfort.
[2022-03-07] MEDS: IV 1/2NS 1000 ML 1,000 ML IV SCH ×2 (12:26→22:20)
[2022-03-07 16:00] VITALS: BP 131/49
--- NOTE | 2022-03-07 17:00 | NUR ---
ms rn pm care done, dressing to sacral area done.
--- NOTE | 2022-03-07 18:34 | NUR ---
ms rn on bed, no distress noted, will endorse to night rn for carie.
--- NOTE | 2022-03-07 19:30 | NUR ---
HOT MILL SHEARER OPENING NOTE RECEIVED PATIENT IN BED; WITH EYES OPEN AND NONVERBAL. ON MECHANICAL VENT. NO S/S OF RESPIRATORY OR CARDIAC DISTRESS NOTED. BREATHING EVEN AND NONLABORED. ON TELEMETRY MONITORING WITH READING SINUS RHYTHM HR- 98 BPM. S/P RIGHT ABOVE THE KNEE AMPUTATION WITH ABDOULAYE DRAIN DRAINING TO 50 ML SANGUINOUS OUTPUT AT THIS TIME. WITH IV ACCESS AT RIGHT UPPER ARM, MIDLINE, PATENT AND INTACT INFUSING WITH 1/2 NS RUNNING @ 100 ML/HR. WITH GT FEEDING NEPRO INFUSING @ 45 ML/HR. WITH OH CATHETER IN PLACE DRAINING TO YELLOW URINE OUTPUT BY GRAVITY. SAFETY PRECAUTIONS IMPLEMENTED: HEAD OF BED ELEVATED AT ALL TIMES, CALL LIGHT AND TABLE WITHIN REACH, SIDE RAILS UP X 3, BED IN LOWEST LOCKED POSITION. WILL CONTINUE TO MONITOR THROUGHOUT SHIFT.
[2022-03-07 20:00] VITALS: BP 151/71
[2022-03-07] MEDS: VANCOMYCIN 500 MG in IV D5W 100 ML IV SCH (20:19)
[2022-03-07] MEDS ORDERED: INSULIN GLARGINE, 100 UNIT/ML CARTRIDGE SQ SCH (22:00)
[2022-03-08] VITALS: BP 149/69
[2022-03-08] MEDS: INSULIN REGULAR, HUMAN 100 UNIT/ML 3 ML VIAL SQ PRN ×4 (00:14→17:42)
[2022-03-08] MEDS: ALBUTEROL FS 2.5 MG/0.5 ML VIAL.NEB NEB SCH ×4 (01:32→20:12)
[2022-03-08] MEDS: IPRATROPIUM NEB FS 0.5 MG/2.5 ML AMPUL.NEB NEB SCH ×4 (01:32→20:12)
[2022-03-08 04:00] VITALS: BP 143/65
[2022-03-08] MEDS: NEPRO 1,000 ML BOTTLE GT PRN (04:43)
[2022-03-08] MEDS: ZOSYN IVPB 2.25 G in IV D5W 50ml IV SCH (04:44)
[2022-03-08 05:39] LABS: BASOPHILS % (AUTO) 0.3 % (0.0-2.0); EOSINOPHILS % (AUTO) 4.6 % (0.0-6.0); HEMATOCRIT 26 % (33-45); HEMOGLOBIN 8.5 g/dL (11.5-14.8); LYMPHOCYTES # (AUTO) 1.7 K/uL (0.8-4.8); LYMPHOCYTES % (AUTO) 16.8 % (20.0-44.0); MEAN CORPUSCULAR HGB CONC 33 g/dl (31.0-36.0); MEAN CORPUSCULAR VOLUME 93 fL (82-100); MONOCYTES # (AUTO) 0.7 K/uL (0.1-1.30); MONOCYTES % (AUTO) 7.1 % (2.0-12.0); NEUTROPHILS # (AUTO) 7.3 K/uL (1.8-8.9); NEUTROPHILS % (AUTO) 71.2 % (43.0-81.0); PLATELET COUNT (AUTO) 179 K/uL (150-450); RED BLOOD CELL COUNT(AUTO) 2.79 MIL/uL (4.0-5.2); WHITE BLOOD COUNT (AUTO) 10.3 K/uL (4.3-11.0)
[2022-03-08 06:03] LABS: CALCIUM, SERUM 7.8 mg/dL (8.5-10.1); CREATININE 1.7 mg/dL (0.6-1.3); POTASSIUM 4.1 mmol/L (3.5-5.1)
[2022-03-08] MEDS: BLOOD SUGAR DIAGNOSTIC 1 EACH STRIP IN SCH ×3 (06:19→17:39)
--- NOTE | 2022-03-08 06:40 | NUR ---
IMPLEMENTATION ARCHITECT CLOSING NOTE PATIENT IN BED; NONVERBAL, OBTUNDED. ON MECHANICAL VENT WITH NO S/S OF RESPIRATORY OR CARDIAC DISTRESS NOTED. BREATHING EVEN AND NONLABORED. ON TELEMETRY MONITORING WITH READING SINUS TACHYCARDIA HR-111 BPM. WITH RIGHT ABOVE THE KNEE AMPUTATION WITH ABDOULAYE DRAIN DRAINING TO 10 ML SANGUINOUS OUTPUT AT THIS TIME. WITH IV ACCESS AT RIGHT UPPER ARM, MIDLINE, PATENT AND INTACT INFUSING WITH 1/2 NS RUNNING @ 100 ML/HR. WITH GT FEEDING NEPRO INFUSING @ 45 ML/HR. WITH OH CATHETER IN PLACE DRAINING TO YELLOW URINE OUTPUT BY GRAVITY. SAFETY PRECAUTIONS IMPLEMENTED: HEAD OF BED ELEVATED AT ALL TIMES, CALL LIGHT AND TABLE WITHIN REACH, SIDE RAILS UP X 3, BED IN LOWEST LOCKED POSITION. WILL CONTINUE TO MONITOR THROUGHOUT SHIFT.
[2022-03-08 07:00] VITALS: BP 147/59
--- NOTE | 2022-03-08 08:28 | NUR ---
EVS TECH OPENING NOTE RECEIVED PATIENT IN BED; WITH EYES CLOSED AND NONVERBAL. ON MECHANICAL VENT. NO S/S OF RESPIRATORY OR CARDIAC DISTRESS NOTED. BREATHING EVEN AND NONLABORED. ON TELEMETRY MONITORING WITH READING SINUS TACHYCARDIA RHYTHM HR- 105 BPM. S/P RIGHT ABOVE THE KNEE AMPUTATION HAS NATHAN WRAP CLEAN/DRY/INTACT WITH ABDOULAYE DRAIN DRAINING TO 10 ML SANGUINOUS OUTPUT AT THIS TIME. WITH IV ACCESS AT RIGHT UPPER ARM, MIDLINE, PATENT AND INTACT INFUSING WITH 1/2 NS RUNNING @ 100 ML/HR. MIDLINE DRESSING IS CLEAN, DRY, & INTACT, DATED 03/05/2022. PATIENT HAS GT FEEDING NEPRO INFUSING @ 45 ML/HR. WITH OH CATHETER IN PLACE DRAINING TO YELLOW URINE OUTPUT BY GRAVITY. SAFETY PRECAUTIONS IMPLEMENTED: HEAD OF BED ELEVATED AT ALL TIMES, CALL LIGHT AND TABLE WITHIN REACH, SIDE RAILS UP X 3, BED IN LOWEST LOCKED POSITION. WILL CONTINUE TO MONITOR THROUGHOUT SHIFT.
[2022-03-08] MEDS: ASCORBIC ACID 500 MG TABLET GT SCH (09:43)
[2022-03-08] MEDS: PANTOPRAZOLE 40 MG TABLET.DR PO SCH (09:44)
[2022-03-08] MEDS: PROSOURCE / PROSTAT (PYXIS) 30 ML UDC GT SCH (09:44)
[2022-03-08] MEDS: MULTIVITAMINS,THERAGRAN 1 UDTAB TABLET GT SCH (09:44)
[2022-03-08] MEDS: CHLORHEXIDINE GLUCONATE 15 ML UDC MM SCH ×2 (09:44→17:38)
[2022-03-08] MEDS: DOCUSATE SODIUM 100 MG CAPSULE PO SCH (09:44)
[2022-03-08] MEDS: ZINC SULFATE 220 MG CAPSULE PO SCH (09:44)
[2022-03-08] MEDS: FERROUS SULFATE UDC 300 MG/5 ML UDC GT SCH (09:44)
[2022-03-08] MEDS: MUPIROCIN OINT 2% 22 GM TUBE NS SCH ×2 (09:45→20:38)
[2022-03-08] MEDS: THERAHONEY GEL 1.5 OZ TUBE TP SCH (09:46)
[2022-03-08] MEDS: AMLODIPINE BESYLATE 5 MG TABLET GT SCH (09:48)
[2022-03-08] MEDS: METOPROLOL TARTRATE 25 MG TABLET GT SCH ×2 (09:49→17:39)
[2022-03-08] MEDS ORDERED: ZINC SULFATE 220 MG CAPSULE GT SCH (10:35)
[2022-03-08 12:00] VITALS: BP 147/69
[2022-03-08] MEDS: DOCUSATE SODIUM LIQ 100 MG/10 ML UDC GT SCH (12:49)
[2022-03-08] MEDS: EPOETIN ALFA-EPBX 4,000 UNIT/ML VIAL SQ SCH (15:00)
--- NOTE | 2022-03-08 15:00 | NUR ---
ms rn was seen by dr. lara, removed,natasha drain, new dressing placed,all needs attended.
[2022-03-08 16:00] VITALS: BP 154/63
[2022-03-08] MEDS: ACETAMINOPHEN 650 MG/20.3 ML UDC GT PRN (17:38)
--- NOTE | 2022-03-08 19:12 | NUR ---
ms rn on bed, all needs attended, no distress noted.
--- NOTE | 2022-03-08 19:35 | NUR ---
CENTRAL SUPPLY WORKER OPENING NOTE RECEIVED PATIENT IN BED; WITH EYES OPEN AND NONVERBAL. ON MECHANICAL VENTILATOR. NO S/S OF RESPIRATORY OR CARDIAC DISTRESS NOTED. BREATHING EVEN AND NONLABORED. ON TELEMETRY MONITORING WITH READING SINUS TACHYCARDIA HR-105 BPM. WITH IV ACCESS AT RIGHT UPPER ARM, MIDLINE, PATENT AND INTACT INFUSING WITH 1/2 NS RUNNING @ 100 ML/HR. WITH GT FEEDING NEPRO INFUSING @ 45 ML/HR. WITH OH CATHETER IN PLACE DRAINING TO YELLOW URINE OUTPUT BY GRAVITY. SAFETY PRECAUTIONS IMPLEMENTED: HEAD OF BED ELEVATED AT ALL TIMES, CALL LIGHT AND TABLE WITHIN REACH, SIDE RAILS UP X 3, BED IN LOWEST LOCKED POSITION. WILL CONTINUE TO MONITOR THROUGHOUT SHIFT.
[2022-03-08 20:00] VITALS: BP 139/68
[2022-03-08] MEDS ORDERED: INSULIN GLARGINE, 100 UNIT/ML CARTRIDGE SQ SCH ×2 (22:00)
[2022-03-09] VITALS: BP 160/77
[2022-03-09] MEDS: IPRATROPIUM NEB FS 0.5 MG/2.5 ML AMPUL.NEB NEB SCH ×4 (02:12→19:30)
[2022-03-09] MEDS: ALBUTEROL FS 2.5 MG/0.5 ML VIAL.NEB NEB SCH ×4 (02:12→19:30)
[2022-03-09] MEDS: BLOOD SUGAR DIAGNOSTIC 1 EACH STRIP IN SCH ×4 (02:14→17:46)
[2022-03-09] MEDS: NEPRO 1,000 ML BOTTLE GT PRN (04:33)
[2022-03-09 06:00] LABS: BASOPHILS % (AUTO) 0.3 % (0.0-2.0); EOSINOPHILS % (AUTO) 8.7 % (0.0-6.0); HEMATOCRIT 26 % (33-45); HEMOGLOBIN 8.5 g/dL (11.5-14.8); LYMPHOCYTES # (AUTO) 1.3 K/uL (0.8-4.8); MEAN CORPUSCULAR HGB CONC 33 g/dl (31.0-36.0); MEAN CORPUSCULAR VOLUME 92 fL (82-100); MONOCYTES # (AUTO) 0.6 K/uL (0.1-1.30); NEUTROPHILS # (AUTO) 7.7 K/uL (1.8-8.9); PLATELET COUNT (AUTO) 159 K/uL (150-450); RED BLOOD CELL COUNT(AUTO) 2.81 MIL/uL (4.0-5.2); WHITE BLOOD COUNT (AUTO) 10.5 K/uL (4.3-11.0)
[2022-03-09 06:19] LABS: CALCIUM, SERUM 8.2 mg/dL (8.5-10.1); CREATININE 1.6 mg/dL (0.6-1.3); POTASSIUM 4.1 mmol/L (3.5-5.1)
[2022-03-09] MEDS: INSULIN REGULAR, HUMAN 100 UNIT/ML 3 ML VIAL SQ PRN ×3 (06:41→17:51)
--- NOTE | 2022-03-09 06:50 | NUR ---
PRODUCTION RECORDER CLOSING NOTE PATIENT IN BED; NONVERBAL, OBTUNDED. ON MECHANICAL VENT WITH NO S/S OF RESPIRATORY OR CARDIAC DISTRESS NOTED. BREATHING EVEN AND NONLABORED. ON TELEMETRY MONITORING WITH READING SINUS TACHYCARDIA HR-103 BPM. WITH RIGHT ABOVE THE KNEE AMPUTATION; DRESSING C/D/I. WITH IV ACCESS AT RIGHT UPPER ARM, MIDLINE; PATENT, INTACT AND SALINE LOCKED. WITH OH CATHETER IN PLACE DRAINING TO YELLOW URINE OUTPUT BY GRAVITY. SAFETY PRECAUTIONS MAINTAINED: HEAD OF BED ELEVATED AT ALL TIMES, CALL LIGHT AND TABLE WITHIN REACH, SIDE RAILS UP X 3, BED IN LOWEST LOCKED POSITION. ENDORSED TO MORNING SHIFT FOR NEIL.
--- NOTE | 2022-03-09 07:10 | NUR ---
RN RECEIVED A NON VERBAL PATIENT VENT DEPENDENT WITH TRACH CONNECTED TO VENT G TUBE INTACT WITH ONGOING FEEDING AT 45ML PER HR TOLERATED WEEL WITH RESIDUAL BILATERAL ABOVE KNEE AMUPTATION RT KNEE W/ DRESSING DRY AND INTACT V/S W/IN NORMAL LIMITS REPOSITION FOR COMFORT, BED AND LOCK POSTION
[2022-03-09] MEDS ORDERED: PANTOPRAZOLE 40 MG/PACK PACK GT SCH (07:30)
[2022-03-09 08:00] VITALS: BP 141/55
--- NOTE | 2022-03-09 08:10 | NUR ---
rn patient is not in distress, will continue to monitor.
[2022-03-09] MEDS: PROSOURCE / PROSTAT (PYXIS) 30 ML UDC GT SCH (08:43)
[2022-03-09] MEDS: CHLORHEXIDINE GLUCONATE 15 ML UDC MM SCH ×2 (08:43→17:46)
[2022-03-09] MEDS: FERROUS SULFATE UDC 300 MG/5 ML UDC GT SCH (08:44)
[2022-03-09] MEDS: DOCUSATE SODIUM LIQ 100 MG/10 ML UDC GT SCH (08:44)
[2022-03-09] MEDS: METOPROLOL TARTRATE 25 MG TABLET GT SCH ×2 (08:48→17:46)
[2022-03-09] MEDS: AMLODIPINE BESYLATE 5 MG TABLET GT SCH (08:48)
[2022-03-09] MEDS: THERAHONEY GEL 1.5 OZ TUBE TP SCH (08:50)
[2022-03-09] MEDS: ASCORBIC ACID 500 MG TABLET GT SCH (08:50)
[2022-03-09] MEDS: MULTIVITAMINS,THERAGRAN 1 UDTAB TABLET GT SCH (08:50)
[2022-03-09] MEDS: MUPIROCIN OINT 2% 22 GM TUBE NS SCH (08:51)
[2022-03-09 12:00] VITALS: BP 159/116
[2022-03-09] MEDS ORDERED: DOXYCYCLINE 100 MG in IV D5W 100 ML IV SCH (12:00)
[2022-03-09] MEDS ORDERED: CEPHALEXIN MONOHYDRATE 250 MG/5 ML BOTTLE PEG SCH (12:00)
[2022-03-09 16:00] VITALS: BP 133/65
[2022-03-09 17:46] VITALS: BP 133/55
[2022-03-09] MEDS: ACETAMINOPHEN 650 MG/20.3 ML UDC GT PRN (17:49)
== END 2022-03-09 20:00 | DRG 710 ==
LOC: ER 19:30 → MED 03-02 15:48 → TELE 03-02 17:18
PROVIDERS: ADMIT Student in an Organized Health Care Education/Training Program; ATTEND Internal Medicine
PROC: 5A1955Z Respiratory Ventilation, Greater than 96 Consecutive Hours (ICD-10-PCS; principal; 2022-03-02)
PROC: 30233N1 Transfusion of Nonautologous Red Blood Cells into Peripheral Vein, Percutaneous Approach (ICD-10-PCS; 2022-03-05)
PROC: 05HB33Z Insertion of Infusion Device into Right Basilic Vein, Percutaneous Approach (ICD-10-PCS; 2022-03-05)
PROC: 0Y6C0Z1 Detachment at Right Upper Leg, High, Open Approach (ICD-10-PCS; 2022-03-06)
DX: A41.9 Sepsis, unspecified organism (principal); N17.0 Acute kidney failure with tubular necrosis; G93.40 Encephalopathy, unspecified; L89.154 Pressure ulcer of sacral region, stage 4; E44.0 Moderate protein-calorie malnutrition; E11.52 Type 2 diabetes mellitus with diabetic peripheral angiopathy with gangrene; D68.59 Other primary thrombophilia; M86.171 Other acute osteomyelitis, right ankle and foot; D63.8 Anemia in other chronic diseases classified elsewhere; I96 Gangrene, not elsewhere classified; L97.419 Non-pressure chronic ulcer of right heel and midfoot with unspecified severity; J96.10 Chronic respiratory failure, unspecified whether with hypoxia or hypercapnia; L97.519 Non-pressure chronic ulcer of other part of right foot with unspecified severity; Z99.11 Dependence on respirator [ventilator] status; E11.69 Type 2 diabetes mellitus with other specified complication; E11.621 Type 2 diabetes mellitus with foot ulcer; L97.529 Non-pressure chronic ulcer of other part of left foot with unspecified severity; E11.622 Type 2 diabetes mellitus with other skin ulcer; Z20.822 Contact with and (suspected) exposure to COVID-19; R13.10 Dysphagia, unspecified; I12.9 Hypertensive chronic kidney disease with stage 1 through stage 4 chronic kidney disease, or unspecified chronic kidney disease; N18.9 Chronic kidney disease, unspecified; Z93.0 Tracheostomy status; Z93.1 Gastrostomy status; Z89.612 Acquired absence of left leg above knee; Z79.51 Long term (current) use of inhaled steroids; Z79.4 Long term (current) use of insulin; F03.90 Unspecified dementia, unspecified severity, without behavioral disturbance, psychotic disturbance, mood disturbance, and anxiety; Z87.19 Personal history of other diseases of the digestive system; E11.22 Type 2 diabetes mellitus with diabetic chronic kidney disease; Z87.39 Personal history of other diseases of the musculoskeletal system and connective tissue; Z86.73 Personal history of transient ischemic attack (TIA), and cerebral infarction without residual deficits; Z85.05 Personal history of malignant neoplasm of liver; Z74.09 Other reduced mobility; K21.9 Gastro-esophageal reflux disease without esophagitis; E88.09 Other disorders of plasma-protein metabolism, not elsewhere classified; E11.65 Type 2 diabetes mellitus with hyperglycemia; E11.42 Type 2 diabetes mellitus with diabetic polyneuropathy; E83.42 Hypomagnesemia; E87.0 Hyperosmolality and hypernatremia; I70.0 Atherosclerosis of aorta; J98.11 Atelectasis
CPT/HCPCS: 31720; 36410; 36415; 71045-TC; 73552; 73630-TC; 76770-TC; 80048-TC; 80053-TC; 80202-TC; 82728-TC; 82962-TC; 83540-TC; 83735-TC; 84100-TC; 85025-TC; 85027-TC; 85610-TC; 85652-TC; 85730-TC; 86140-TC; 86850-TC; 87040-TC; 87081-TC; 93307-TC; 94002-TC; 94003-TC; 94760-TC; 94762-TC; 94799-TC; 99082-TC; A6253; A6403; A7526; C9803; G0378; J0885; J1644; J1815; J2543; J3010; J3370; J3475; J3490; J7030; J7040; J7050; J7060; P9016

== ENCOUNTER 2022-12-21 08:29 | Inpatient (IN) | payer OTHER ==
[~2022-12-21] VITALS: Ht 127 cm; Wt 61.7 kg
[~2022-12-21 08:29] MED LIST changes: -HYDR-4303 GT; -NUT.237L31 GT; +NUT.237L67 GT; +SODI1TAB66 GT; +SODI5POW2 GT
[2022-12-21 09:15] LABS: BASOPHILS % (AUTO) 0.5 % (0.0-2.0); EOSINOPHILS # (AUTO) 0.5 K/uL (0.0-0.7); EOSINOPHILS % (AUTO) 6.4 % (0.0-6.0); HEMATOCRIT 23 % (33-45); HEMOGLOBIN 7.3 g/dL (11.5-14.8); LYMPHOCYTES # (AUTO) 0.8 K/uL (0.8-4.8); LYMPHOCYTES % (AUTO) 9.7 % (20.0-44.0); MEAN CORPUSCULAR HEMOGLOBIN 33 PG (26.0-33.0); MEAN CORPUSCULAR HGB CONC 32 g/dl (31.0-36.0); MEAN CORPUSCULAR VOLUME 103 fL (82-100); MONOCYTES # (AUTO) 0.7 K/uL (0.1-1.30); MONOCYTES % (AUTO) 8.5 % (2.0-12.0); NEUTROPHILS # (AUTO) 5.8 K/uL (1.8-8.9); NEUTROPHILS % (AUTO) 74.9 % (43.0-81.0); PLATELET COUNT (AUTO) 147 K/uL (150-450); RED BLOOD CELL COUNT(AUTO) 2.22 MIL/uL (4.0-5.2); RED CELL DISTRIBUTION WIDTH 16.3 % (11.5-15.0); WHITE BLOOD COUNT (AUTO) 7.7 K/uL (4.3-11.0)
[2022-12-21 09:40] LABS: ALANINE AMINOTRANSFERASE 46 U/L (12-78); ALBUMIN 2.8 g/dL (3.4-5.0); ALKALINE PHOSPHATASE 290 U/L (46-116); ASPARTATE AMINOTRANSFERASE 41 U/L (15-37); BILIRUBIN,DIRECT 0.2 mg/dL (0.0-0.2); BILIRUBIN,TOTAL 0.5 mg/dL (0.2-1.0); CALCIUM, SERUM 9.3 mg/dL (8.5-10.1); CARBON DIOXIDE 21 mmol/L (21-32); CHLORIDE 97 mmol/L (98-107); CREATININE 3.1 mg/dL (0.6-1.3); GLUCOSE 183 mg/dL (74-106); POTASSIUM 5.5 mmol/L (3.5-5.1); SODIUM SERUM 125 mmol/L (136-145); TOTAL PROTEIN, SERUM 7.6 g/dL (6.4-8.2)
[2022-12-21 09:42] LABS: UREA NITROGEN, BLOOD 146 mg/dL (7-18)
[2022-12-21 09:45] LABS: APPEARANCE,URINE SLIGHTLY CLOUDY (CLEAR); BILIRUBIN,URINE NEGATIVE (NEGATIVE); BLOOD, URINE NEGATIVE Ery/uL (NEGATIVE); COLOR,URINE YELLOW (YELLOW); KETONES,URINE NEGATIVE (NEGATIVE); LEUKOCYTE ESTERASE ,URINE 2+ (NEGATIVE); NITRITE, URINE NEGATIVE (NEGATIVE); PH,URINE 5.5 (5.0-8.0); PROTEIN,URINE NEGATIVE (NEGATIVE); UGLUCOSE NEGATIVE (NEGATIVE); UROBILINOGEN,URINE 0.2 EU/dL (0.2)
[2022-12-21 09:50] LABS: INR 1.16 (0.91-1.10); PARTIAL THROMBOPLASTIN TIME 28.6 SEC (24.3-34.3); PROTHROMBIN TIME 12.1 SECS (9.2-11.1)
[2022-12-21 09:51] LABS: LACTIC ACID 2.2 mmol/L (0.4-2.0)
[2022-12-21] MEDS ORDERED: ARGI1POW13 GT (09:56)
[2022-12-21] MEDS ORDERED: PANT40SU2 GT (09:56)
[2022-12-21] MEDS ORDERED: ALLA266C2 TP (09:56)
[2022-12-21] MEDS ORDERED: HYDR-4303 GT (09:56)
[2022-12-21] MEDS ORDERED: COLL30OI TP (09:56)
[2022-12-21] MEDS ORDERED: HYDR-4209 GT (09:56)
[2022-12-21] MEDS ORDERED: CEFTRIAXONE 1GM BAG (ER ONLY) 1 GM/50 ML PIGGYBACK IV ONE (10:00)
[2022-12-21] MEDS ORDERED: IV NS 0.9% 1,000 ML BAG IV ONE (10:00)
[2022-12-21 10:09] LABS: ADD URINE CULTURE YES; BACTERIA,URINE Rare /HPF (None Seen); RBC,URINE 0-2 /HPF (0-2); SQUAMOUS EPITHELIAL CELL,UR Few /HPF (None Seen)
[2022-12-21] MEDS ORDERED: CEFTRIAXONE 1GM BAG (ER ONLY) 50 ML IV ONE (10:23)
[2022-12-21 13:10] VITALS: BP 108/37; TEMP 99.1; O2SAT 100
[2022-12-21] MEDS ORDERED: NEPRO VAN 237 ML CAN GT SCH (14:00)
[2022-12-21] MEDS ORDERED: NEPRO 1,000 ML BOTTLE GT PRN ×2 (14:30→16:12)
[2022-12-21] MEDS: ALBUTEROL FS 2.5 MG/3 ML VIAL.NEB NEB SCH ×3 (15:06→23:27)
[2022-12-21] MEDS: IPRATROPIUM NEB FS 0.5 MG/2.5 ML AMPUL.NEB NEB SCH ×3 (15:06→23:27)
[2022-12-21] MEDS: CEFTRIAXONE 1 G in IV D5W 50 ML IV SCH (15:44)
[2022-12-21 16:00] VITALS: BP 114/42; TEMP 97.9; O2SAT 100
[2022-12-21 16:04] LABS: URINE TOTAL PROTEIN 16.8 mg/dL (0-11.9)
[2022-12-21] MEDS: METOPROLOL TARTRATE 25 MG TABLET GT SCH (17:00)
[2022-12-21] MEDS: ASCORBIC ACID 500 MG TABLET GT SCH (17:44)
[2022-12-21] MEDS: SODIUM CHLORIDE 1000 MG TABLET GT SCH (17:44)
[2022-12-21] MEDS: CHLORHEXIDINE GLUCONATE 15 ML UDC MM SCH (17:44)
[2022-12-21] MEDS: SODIUM POLYSTYRENE SULF. PWD 15 GM UDC GT SCH (18:26)
[2022-12-21 20:00] VITALS: BP 120/76; TEMP 99; O2SAT 100
[2022-12-21] MEDS: INSULIN GLARGINE, 100 UNIT/ML CARTRIDGE SQ SCH (23:04)
[2022-12-22] VITALS: BP 101/50; TEMP 98; O2SAT 100
[2022-12-22 04:00] VITALS: BP 128/50; TEMP 98; O2SAT 100
[2022-12-22] MEDS: ALBUTEROL FS 2.5 MG/3 ML VIAL.NEB NEB SCH ×6 (04:17→23:44)
[2022-12-22] MEDS: IPRATROPIUM NEB FS 0.5 MG/2.5 ML AMPUL.NEB NEB SCH ×6 (04:17→23:44)
[2022-12-22 08:00] VITALS: BP 109/41; TEMP 98.4; O2SAT 99
[2022-12-22] MEDS ORDERED: COLLAGENASE 30 GM TUBE TP SCH (09:00)
[2022-12-22] MEDS: SODIUM CHLORIDE 1000 MG TABLET GT SCH ×3 (09:36→18:06)
[2022-12-22] MEDS: METOPROLOL TARTRATE 25 MG TABLET GT SCH ×2 (09:36→18:06)
[2022-12-22] MEDS: ASCORBIC ACID 500 MG TABLET GT SCH ×2 (09:36→18:06)
[2022-12-22] MEDS: PROSOURCE / PROSTAT (PYXIS) 30 ML UDC GT SCH (09:36)
[2022-12-22] MEDS: FERROUS SULFATE UDC 300 MG/5 ML UDC GT SCH (09:36)
[2022-12-22] MEDS: PANTOPRAZOLE 40 MG/PACK PACK GT SCH (09:36)
[2022-12-22] MEDS: CHLORHEXIDINE GLUCONATE 15 ML UDC MM SCH ×2 (09:36→18:06)
[2022-12-22] MEDS: AMLODIPINE BESYLATE 5 MG TABLET GT SCH (09:37)
[2022-12-22] MEDS: THERAHONEY GEL 1.5 OZ TUBE TP SCH (09:38)
[2022-12-22 09:57] LABS: CALCIUM, SERUM 8.5 mg/dL (8.5-10.1); CREATININE 2.7 mg/dL (0.6-1.3)
[2022-12-22 10:02] LABS: ALBUMIN 2.3 g/dL (3.4-5.0); BILIRUBIN,TOTAL 0.3 mg/dL (0.2-1.0); TOTAL PROTEIN, SERUM 6.4 g/dL (6.4-8.2)
[2022-12-22] MEDS: IV NS 0.9% 1,000 ML IV PRN (10:18)
[2022-12-22 12:00] VITALS: BP 106/46; TEMP 98.5; O2SAT 100
[2022-12-22] MEDS: SODIUM POLYSTYRENE SULF. PWD 15 GM UDC GT SCH (12:13)
[2022-12-22] MEDS: CEFTRIAXONE 1 G in IV D5W 50 ML IV SCH (15:13)
[2022-12-22 16:00] VITALS: BP 123/46; TEMP 98.5; O2SAT 100
[2022-12-22 20:00] VITALS: BP 127/45; TEMP 99.4; O2SAT 100
[2022-12-22] MEDS: INSULIN GLARGINE, 100 UNIT/ML CARTRIDGE SQ SCH (21:56)
[2022-12-22] MEDS: ACETAMINOPHEN 325 MG TABLET MC PRN (23:53)
[2022-12-23] VITALS: BP 126/49; TEMP 100.6; O2SAT 100
[2022-12-23] MEDS: IV NS 0.9% 1,000 ML IV PRN ×2 (00:24→14:13)
[2022-12-23 04:00] VITALS: BP 128/65; TEMP 98.4; O2SAT 100
[2022-12-23] MEDS: IPRATROPIUM NEB FS 0.5 MG/2.5 ML AMPUL.NEB NEB SCH ×6 (04:13→22:42)
[2022-12-23] MEDS: ALBUTEROL FS 2.5 MG/3 ML VIAL.NEB NEB SCH ×6 (04:13→22:42)
[2022-12-23 06:51] LABS: BASOPHILS % (AUTO) 0.4 % (0.0-2.0); EOSINOPHILS # (AUTO) 0.2 K/uL (0.0-0.7); EOSINOPHILS % (AUTO) 3.7 % (0.0-6.0); LYMPHOCYTES # (AUTO) 0.7 K/uL (0.8-4.8); MEAN CORPUSCULAR HEMOGLOBIN 33 PG (26.0-33.0); MEAN CORPUSCULAR HGB CONC 32 g/dl (31.0-36.0); MEAN CORPUSCULAR VOLUME 105 fL (82-100); MONOCYTES # (AUTO) 0.7 K/uL (0.1-1.30); MONOCYTES % (AUTO) 12.4 % (2.0-12.0); NEUTROPHILS % (AUTO) 71.5 % (43.0-81.0); PLATELET COUNT (AUTO) 137 K/uL (150-450); RED CELL DISTRIBUTION WIDTH 16.2 % (11.5-15.0); WHITE BLOOD COUNT (AUTO) 5.6 K/uL (4.3-11.0)
[2022-12-23 07:26] LABS: RED BLOOD CELL COUNT(AUTO) 1.91 MIL/uL (4.0-5.2)
[2022-12-23 07:31] LABS: HEMATOCRIT 20 % (33-45); HEMOGLOBIN 6.4 g/dL (11.5-14.8)
[2022-12-23 07:38] LABS: CALCIUM, SERUM 8.2 mg/dL (8.5-10.1); CREATININE 2.4 mg/dL (0.6-1.3); MAGNESIUM 2.8 mg/dL (1.8-2.4); PHOSPHORUS 3.3 mg/dL (2.5-4.9); POTASSIUM 4.2 mmol/L (3.5-5.1)
[2022-12-23 08:00] VITALS: BP 137/62; TEMP 99; O2SAT 100
[2022-12-23] MEDS: CHLORHEXIDINE GLUCONATE 15 ML UDC MM SCH ×2 (09:23→18:55)
[2022-12-23] MEDS: PANTOPRAZOLE 40 MG/PACK PACK GT SCH (09:23)
[2022-12-23] MEDS: ASCORBIC ACID 500 MG TABLET GT SCH ×2 (09:23→18:54)
[2022-12-23] MEDS: FERROUS SULFATE UDC 300 MG/5 ML UDC GT SCH (09:23)
[2022-12-23] MEDS: SODIUM CHLORIDE 1000 MG TABLET GT SCH ×3 (09:23→18:53)
[2022-12-23] MEDS: METOPROLOL TARTRATE 25 MG TABLET GT SCH ×2 (09:25→18:53)
[2022-12-23] MEDS: SODIUM POLYSTYRENE SULFONATE 15 G/60 ML BOTTLE GT SCH (09:25)
[2022-12-23] MEDS: AMLODIPINE BESYLATE 5 MG TABLET GT SCH (09:25)
[2022-12-23] MEDS: THERAHONEY GEL 1.5 OZ TUBE TP SCH (09:27)
[2022-12-23] MEDS: PROSOURCE / PROSTAT (PYXIS) 30 ML UDC GT SCH (09:27)
[2022-12-23 12:00] VITALS: BP 122/63; TEMP 99.9; O2SAT 100
[2022-12-23 12:19] LABS: BAND % (MANUAL) 2 % (0.0-5.0); EOSINOPHILS % (MANUAL) 3 % (0-4); LYMPHOCYTES % (MANUAL) 8 % (16-48); MONOCYTES % (MANUAL) 7 % (0-11.0); NEUTROPHILS % (MANUAL) 80 (42-76)
[2022-12-23 12:20] LABS: ANISOCYTOSIS 1+; PLATELET ESTIMATE DECREASED
[2022-12-23 12:21] LABS: OVALOCYTES 1+
[2022-12-23] MEDS: CEFTRIAXONE 1 G in IV D5W 50 ML IV SCH (14:37)
[2022-12-23] MEDS ORDERED: EPOETIN ALFA-EPBX 2,000 UNIT/ML VIAL SQ SCH (15:00)
[2022-12-23] MEDS ORDERED: DEXTROSE 50%-WATER 50 ML DISP.SYRIN IV PRN (15:00)
[2022-12-23 16:00] VITALS: BP 129/54; TEMP 99; O2SAT 100
[2022-12-23] MEDS: ARGININE/GLUTAMINE/CALCIUM BMB 1 EACH POWD.PACK GT SCH (18:53)
[2022-12-23] MEDS: BLOOD SUGAR DIAGNOSTIC 1 EACH STRIP IN SCH (18:55)
[2022-12-23] MEDS: NEPRO 1,000 ML BOTTLE GT PRN (19:03)
[2022-12-23] MEDS: INSULIN REGULAR, HUMAN 100 UNIT/ML 3 ML VIAL SQ PRN (19:05)
[2022-12-23 20:00] VITALS: BP 124/61; TEMP 99.3; O2SAT 100
[2022-12-23] MEDS: INSULIN GLARGINE, 100 UNIT/ML CARTRIDGE SQ SCH (22:04)
[2022-12-24] VITALS: BP 135/68; TEMP 99.9; O2SAT 100
[2022-12-24] MEDS: BLOOD SUGAR DIAGNOSTIC 1 EACH STRIP IN SCH ×5 (00:17→23:18)
[2022-12-24] MEDS: INSULIN REGULAR, HUMAN 100 UNIT/ML 3 ML VIAL SQ PRN ×5 (00:17→23:19)
[2022-12-24 04:00] VITALS: BP 141/51; TEMP 99.9; O2SAT 100
[2022-12-24] MEDS: IPRATROPIUM NEB FS 0.5 MG/2.5 ML AMPUL.NEB NEB SCH ×4 (04:02→19:50)
[2022-12-24] MEDS: ALBUTEROL FS 2.5 MG/3 ML VIAL.NEB NEB SCH ×4 (04:02→19:50)
[2022-12-24] MEDS: IV NS 0.9% 1,000 ML IV PRN ×2 (06:03→22:20)
[2022-12-24] MEDS: NEPRO 1,000 ML BOTTLE GT PRN (06:05)
[2022-12-24 08:00] VITALS: BP 144/55; TEMP 99.7; O2SAT 100
[2022-12-24 08:00] LABS: CALCIUM, SERUM 8.5 mg/dL (8.5-10.1); CREATININE 2.1 mg/dL (0.6-1.3); POTASSIUM 3.9 mmol/L (3.5-5.1)
[2022-12-24] MEDS ORDERED: Z GUARD REMEDY 4 OZ OINT TP PRN (08:30)
[2022-12-24] MEDS: CHLORHEXIDINE GLUCONATE 15 ML UDC MM SCH ×2 (08:47→17:18)
[2022-12-24] MEDS: SODIUM POLYSTYRENE SULFONATE 15 G/60 ML BOTTLE GT SCH (08:47)
[2022-12-24] MEDS: AMLODIPINE BESYLATE 5 MG TABLET GT SCH (08:48)
[2022-12-24] MEDS: PANTOPRAZOLE 40 MG/PACK PACK GT SCH (08:48)
[2022-12-24] MEDS: FERROUS SULFATE UDC 300 MG/5 ML UDC GT SCH (08:48)
[2022-12-24] MEDS: SODIUM CHLORIDE 1000 MG TABLET GT SCH ×3 (08:49→17:18)
[2022-12-24] MEDS: METOPROLOL TARTRATE 25 MG TABLET GT SCH ×2 (08:49→17:18)
[2022-12-24] MEDS: ASCORBIC ACID 500 MG TABLET GT SCH ×2 (08:49→17:18)
[2022-12-24] MEDS: PROSOURCE / PROSTAT (PYXIS) 30 ML UDC GT SCH (08:53)
[2022-12-24 08:55] LABS: BASOPHILS % (AUTO) 0.6 % (0.0-2.0); EOSINOPHILS # (AUTO) 0.3 K/uL (0.0-0.7); HEMATOCRIT 22 % (33-45); LYMPHOCYTES # (AUTO) 1.1 K/uL (0.8-4.8); LYMPHOCYTES % (AUTO) 16.5 % (20.0-44.0); MEAN CORPUSCULAR HEMOGLOBIN 33 PG (26.0-33.0); MEAN CORPUSCULAR HGB CONC 32 g/dl (31.0-36.0); MEAN CORPUSCULAR VOLUME 102 fL (82-100); MONOCYTES # (AUTO) 1.2 K/uL (0.1-1.30); MONOCYTES % (AUTO) 18.2 % (2.0-12.0); NEUTROPHILS # (AUTO) 3.9 K/uL (1.8-8.9); NEUTROPHILS % (AUTO) 60.7 % (43.0-81.0); PLATELET COUNT (AUTO) 125 K/uL (150-450); RED CELL DISTRIBUTION WIDTH 15.8 % (11.5-15.0); WHITE BLOOD COUNT (AUTO) 6.4 K/uL (4.3-11.0)
[2022-12-24 09:00] LABS: HEMOGLOBIN 6.9 g/dL (11.5-14.8)
[2022-12-24] MEDS: ARGININE/GLUTAMINE/CALCIUM BMB 1 EACH POWD.PACK GT SCH ×2 (09:06→17:18)
[2022-12-24] MEDS: Z GUARD REMEDY 4 OZ OINT TP SCH (09:20)
[2022-12-24] MEDS: THERAHONEY GEL 1.5 OZ TUBE TP SCH (09:21)
[2022-12-24 11:07] LABS: PTH, INTACT 68 pg/mL (15-65)
[2022-12-24 11:48] LABS: MONOCYTES % (MANUAL) 20 % (0-11.0); NEUTROPHILS % (MANUAL) 62 (42-76)
[2022-12-24 11:50] LABS: EOSINOPHILS % (MANUAL) 3 % (0-4); LYMPHOCYTES % (MANUAL) 15 % (16-48)
[2022-12-24 11:52] LABS: ANISOCYTOSIS 1+
[2022-12-24 12:00] VITALS: BP 130/45; TEMP 99.6; O2SAT 100
[2022-12-24 12:07] LABS: *SPE A/G RATIO 0.7 (0.7-1.7); *SPE ALBUMIN 2.5 g/dL (2.9-4.4); *SPE ALPHA-1-GLOBULIN 0.3 g/dL (0.0-0.4); *SPE ALPHA-2-GLOBULIN 0.7 g/dL (0.4-1.0); *SPE BETA GLOBULIN 0.8 g/dL (0.7-1.3); *SPE GLOBULIN, TOTAL 3.4 g/dL (2.2-3.9); *SPE M-SPIKE Not Observed g/dL (Not Observed); *SPE PROTEIN TOTAL 5.9 g/dL (6.0-8.5); *SPEGAMMA GLOBULIN 1.6 g/dL (0.4-1.8)
[2022-12-24] MEDS: CEFTRIAXONE 1 G in IV D5W 50 ML IV SCH (15:08)
[2022-12-24 16:00] VITALS: BP 135/58; TEMP 99.1; O2SAT 100
[2022-12-24 20:00] VITALS: BP 146/63; TEMP 101.3; O2SAT 100
[2022-12-24] MEDS: INSULIN GLARGINE, 100 UNIT/ML CARTRIDGE SQ SCH (21:50)
[2022-12-24] MEDS: ACETAMINOPHEN 325 MG TABLET MC PRN (23:13)
[2022-12-25] VITALS (10 sets, daily range): BP systolic 14–146; BP diastolic 48–75; TEMP 97.7–99.9; O2SAT 100
[2022-12-25] MEDS: ALBUTEROL FS 2.5 MG/3 ML VIAL.NEB NEB SCH ×7 (00:07→22:55)
[2022-12-25] MEDS: IPRATROPIUM NEB FS 0.5 MG/2.5 ML AMPUL.NEB NEB SCH ×7 (00:07→22:55)
[2022-12-25] MEDS: ACETAMINOPHEN 325 MG TABLET MC PRN (03:48)
[2022-12-25] MEDS: INSULIN REGULAR, HUMAN 100 UNIT/ML 3 ML VIAL SQ PRN ×3 (05:38→17:33)
[2022-12-25] MEDS: BLOOD SUGAR DIAGNOSTIC 1 EACH STRIP IN SCH ×4 (05:38→23:19)
[2022-12-25] MEDS ORDERED: ONDANSETRON HCL/PF 4 MG/2 ML VIAL IV PRN (06:30)
[2022-12-25 07:32] LABS: POTASSIUM 3.3 mmol/L (3.5-5.1)
[2022-12-25] MEDS: PROSOURCE / PROSTAT (PYXIS) 30 ML UDC GT SCH (07:48)
[2022-12-25 07:51] LABS: BASOPHILS % (AUTO) 0.5 % (0.0-2.0); EOSINOPHILS # (AUTO) 0.1 K/uL (0.0-0.7); EOSINOPHILS % (AUTO) 1.3 % (0.0-6.0); HEMATOCRIT 24 % (33-45); HEMOGLOBIN 7.8 g/dL (11.5-14.8); LYMPHOCYTES # (AUTO) 0.9 K/uL (0.8-4.8); MEAN CORPUSCULAR HEMOGLOBIN 33 PG (26.0-33.0); MEAN CORPUSCULAR HGB CONC 33 g/dl (31.0-36.0); MEAN CORPUSCULAR VOLUME 101 fL (82-100); MONOCYTES % (AUTO) 11.7 % (2.0-12.0); NEUTROPHILS # (AUTO) 6.6 K/uL (1.8-8.9); NEUTROPHILS % (AUTO) 76.5 % (43.0-81.0); PLATELET COUNT (AUTO) 113 K/uL (150-450); RED BLOOD CELL COUNT(AUTO) 2.39 MIL/uL (4.0-5.2); RED CELL DISTRIBUTION WIDTH 16.8 % (11.5-15.0); WHITE BLOOD COUNT (AUTO) 8.6 K/uL (4.3-11.0)
[2022-12-25] MEDS: ARGININE/GLUTAMINE/CALCIUM BMB 1 EACH POWD.PACK GT SCH ×2 (08:23→16:58)
[2022-12-25] MEDS: SODIUM CHLORIDE 1000 MG TABLET GT SCH ×3 (08:27→17:00)
[2022-12-25] MEDS: PANTOPRAZOLE 40 MG/PACK PACK GT SCH (08:27)
[2022-12-25] MEDS: SODIUM POLYSTYRENE SULFONATE 15 G/60 ML BOTTLE GT SCH (08:27)
[2022-12-25] MEDS: ASCORBIC ACID 500 MG TABLET GT SCH ×2 (08:27→17:00)
[2022-12-25] MEDS: CHLORHEXIDINE GLUCONATE 15 ML UDC MM SCH ×2 (08:27→17:00)
[2022-12-25] MEDS: FERROUS SULFATE UDC 300 MG/5 ML UDC GT SCH (08:27)
[2022-12-25] MEDS: AMLODIPINE BESYLATE 5 MG TABLET GT SCH (08:28)
[2022-12-25] MEDS: METOPROLOL TARTRATE 25 MG TABLET GT SCH ×2 (08:28→17:00)
[2022-12-25] MEDS: Z GUARD REMEDY 4 OZ OINT TP SCH (08:28)
[2022-12-25] MEDS: THERAHONEY GEL 1.5 OZ TUBE TP SCH (08:37)
[2022-12-25] MEDS: IV 1/2NS 1000 ML 1,000 ML IV PRN (09:31)
[2022-12-25] MEDS: EPOETIN ALFA-EPBX 4,000 UNIT/ML VIAL SQ SCH (14:19)
[2022-12-25] MEDS: CEFTRIAXONE 1 G in IV D5W 50 ML IV SCH (14:20)
[2022-12-25] MEDS: NEPRO 1,000 ML BOTTLE GT PRN (21:32)
[2022-12-25] MEDS: INSULIN GLARGINE, 100 UNIT/ML CARTRIDGE SQ SCH (22:36)
[2022-12-26] VITALS (7 sets, daily range): BP systolic 128–160; BP diastolic 40–64; TEMP 98.2–101.4; O2SAT 100
[2022-12-26] MEDS: ALBUTEROL FS 2.5 MG/3 ML VIAL.NEB NEB SCH ×5 (03:25→19:29)
[2022-12-26] MEDS: IPRATROPIUM NEB FS 0.5 MG/2.5 ML AMPUL.NEB NEB SCH ×5 (03:25→19:29)
[2022-12-26] MEDS: IV 1/2NS 1000 ML 1,000 ML IV PRN (04:07)
[2022-12-26] MEDS: BLOOD SUGAR DIAGNOSTIC 1 EACH STRIP IN SCH ×3 (05:05→18:12)
[2022-12-26] MEDS: INSULIN REGULAR, HUMAN 100 UNIT/ML 3 ML VIAL SQ PRN ×3 (05:23→18:13)
[2022-12-26 07:17] LABS: CALCIUM, SERUM 8.4 mg/dL (8.5-10.1); POTASSIUM 3.3 mmol/L (3.5-5.1)
[2022-12-26] MEDS: ARGININE/GLUTAMINE/CALCIUM BMB 1 EACH POWD.PACK GT SCH ×2 (08:45→16:29)
[2022-12-26] MEDS: SODIUM POLYSTYRENE SULFONATE 15 G/60 ML BOTTLE GT SCH (08:45)
[2022-12-26] MEDS: SODIUM CHLORIDE 1000 MG TABLET GT SCH ×3 (08:45→16:32)
[2022-12-26] MEDS: PROSOURCE / PROSTAT (PYXIS) 30 ML UDC GT SCH (08:45)
[2022-12-26] MEDS: FERROUS SULFATE UDC 300 MG/5 ML UDC GT SCH (08:46)
[2022-12-26] MEDS: ASCORBIC ACID 500 MG TABLET GT SCH ×2 (08:46→16:31)
[2022-12-26] MEDS: CHLORHEXIDINE GLUCONATE 15 ML UDC MM SCH ×2 (08:46→16:31)
[2022-12-26] MEDS: PANTOPRAZOLE 40 MG/PACK PACK GT SCH (08:46)
[2022-12-26] MEDS: AMLODIPINE BESYLATE 5 MG TABLET GT SCH (08:47)
[2022-12-26] MEDS: METOPROLOL TARTRATE 25 MG TABLET GT SCH ×2 (08:47→16:31)
[2022-12-26] MEDS: Z GUARD REMEDY 4 OZ OINT TP SCH (08:49)
[2022-12-26] MEDS: THERAHONEY GEL 1.5 OZ TUBE TP SCH (08:49)
[2022-12-26] MEDS ORDERED: POTASSIUM CL. PREMIX PERIPHER. 50 ML IV SCH (10:00)
[2022-12-26] MEDS: IV D5W 1,000 ML IV PRN (12:33)
[2022-12-26] MEDS: ACETAMINOPHEN 325 MG TABLET MC PRN ×2 (12:38→20:33)
[2022-12-26] MEDS: CEFTRIAXONE 1 G in IV D5W 50 ML IV SCH (15:57)
[2022-12-26 18:55] LABS: CALCIUM, SERUM 8.5 mg/dL (8.5-10.1); POTASSIUM 3.6 mmol/L (3.5-5.1)
[2022-12-26] MEDS: INSULIN GLARGINE, 100 UNIT/ML CARTRIDGE SQ SCH (22:19)
[2022-12-27] VITALS: BP 148/65; TEMP 99.3; O2SAT 100
[2022-12-27] MEDS: BLOOD SUGAR DIAGNOSTIC 1 EACH STRIP IN SCH ×5 (00:01→23:27)
[2022-12-27] MEDS: IPRATROPIUM NEB FS 0.5 MG/2.5 ML AMPUL.NEB NEB SCH ×7 (03:10→23:43)
[2022-12-27] MEDS: ALBUTEROL FS 2.5 MG/3 ML VIAL.NEB NEB SCH ×7 (03:10→23:43)
[2022-12-27 04:50] VITALS: BP 165/67; TEMP 100; O2SAT 100
[2022-12-27] MEDS: INSULIN REGULAR, HUMAN 100 UNIT/ML 3 ML VIAL SQ PRN ×5 (05:42→23:27)
[2022-12-27] MEDS: ACETAMINOPHEN 325 MG TABLET MC PRN ×2 (05:54→21:26)
[2022-12-27] MEDS: IV D5W 1,000 ML IV PRN (06:20)
[2022-12-27 06:31] LABS: CALCIUM, SERUM 8.6 mg/dL (8.5-10.1); POTASSIUM 3.4 mmol/L (3.5-5.1)
[2022-12-27 08:00] VITALS: BP 153/69; TEMP 99.3; O2SAT 100
[2022-12-27] MEDS: FERROUS SULFATE UDC 300 MG/5 ML UDC GT SCH (08:20)
[2022-12-27] MEDS: PANTOPRAZOLE 40 MG/PACK PACK GT SCH (08:20)
[2022-12-27] MEDS: ASCORBIC ACID 500 MG TABLET GT SCH ×2 (08:20→16:44)
[2022-12-27] MEDS: CHLORHEXIDINE GLUCONATE 15 ML UDC MM SCH ×2 (08:21→16:43)
[2022-12-27] MEDS: SODIUM CHLORIDE 1000 MG TABLET GT SCH ×3 (08:21→16:44)
[2022-12-27] MEDS: AMLODIPINE BESYLATE 5 MG TABLET GT SCH (08:24)
[2022-12-27] MEDS: SODIUM POLYSTYRENE SULFONATE 15 G/60 ML BOTTLE GT SCH ×2 (08:24→09:00)
[2022-12-27] MEDS: METOPROLOL TARTRATE 25 MG TABLET GT SCH ×2 (08:24→16:44)
[2022-12-27] MEDS: Z GUARD REMEDY 4 OZ OINT TP SCH (08:25)
[2022-12-27] MEDS: THERAHONEY GEL 1.5 OZ TUBE TP SCH (08:25)
[2022-12-27] MEDS: ARGININE/GLUTAMINE/CALCIUM BMB 1 EACH POWD.PACK GT SCH ×2 (08:27→16:45)
[2022-12-27] MEDS: PROSOURCE / PROSTAT (PYXIS) 30 ML UDC GT SCH (08:27)
[2022-12-27 08:58] LABS: BASOPHILS % (AUTO) 0.7 % (0.0-2.0); EOSINOPHILS # (AUTO) 0.4 K/uL (0.0-0.7); EOSINOPHILS % (AUTO) 7.6 % (0.0-6.0); HEMATOCRIT 24 % (33-45); HEMOGLOBIN 7.7 g/dL (11.5-14.8); LYMPHOCYTES # (AUTO) 0.8 K/uL (0.8-4.8); LYMPHOCYTES % (AUTO) 15.5 % (20.0-44.0); MEAN CORPUSCULAR HEMOGLOBIN 33 PG (26.0-33.0); MEAN CORPUSCULAR HGB CONC 32 g/dl (31.0-36.0); MEAN CORPUSCULAR VOLUME 101 fL (82-100); MONOCYTES # (AUTO) 0.7 K/uL (0.1-1.30); MONOCYTES % (AUTO) 12.1 % (2.0-12.0); NEUTROPHILS # (AUTO) 3.5 K/uL (1.8-8.9); NEUTROPHILS % (AUTO) 64.1 % (43.0-81.0); PLATELET COUNT (AUTO) 86 K/uL (150-450); RED BLOOD CELL COUNT(AUTO) 2.36 MIL/uL (4.0-5.2); RED CELL DISTRIBUTION WIDTH 18.3 % (11.5-15.0); WHITE BLOOD COUNT (AUTO) 5.4 K/uL (4.3-11.0)
[2022-12-27 10:41] LABS: EOSINOPHILS % (MANUAL) 6 % (0-4); LYMPHOCYTES % (MANUAL) 15 % (16-48); MONOCYTES % (MANUAL) 7 % (0-11.0); NEUTROPHILS % (MANUAL) 72 (42-76); PLATELET ESTIMATE DECREASED
[2022-12-27 10:42] LABS: ANISOCYTOSIS 1+
[2022-12-27 10:44] LABS: OVALOCYTES OCC
[2022-12-27 12:00] VITALS: BP 138/61; TEMP 99.1; O2SAT 100
[2022-12-27] MEDS ORDERED: POTASSIUM CL. PREMIX PERIPHER. 50 ML IV ONE (12:30)
[2022-12-27] MEDS: NEPRO 1,000 ML BOTTLE GT PRN (12:49)
[2022-12-27] MEDS: EPOETIN ALFA-EPBX 4,000 UNIT/ML VIAL SQ SCH (13:56)
[2022-12-27] MEDS: CEFTRIAXONE 1 G in IV D5W 50 ML IV SCH (15:23)
[2022-12-27 16:00] VITALS: BP 134/54; TEMP 99.5; O2SAT 100
[2022-12-27 20:00] VITALS: BP 142/65; TEMP 100.2; O2SAT 100
[2022-12-27] MEDS: INSULIN GLARGINE, 100 UNIT/ML CARTRIDGE SQ SCH (23:25)
[2022-12-28] MEDS: ALBUTEROL FS 2.5 MG/3 ML VIAL.NEB NEB SCH ×6 (03:24→23:30)
[2022-12-28] MEDS: IPRATROPIUM NEB FS 0.5 MG/2.5 ML AMPUL.NEB NEB SCH ×6 (03:24→23:30)
[2022-12-28 04:00] VITALS: BP 148/67; TEMP 99.9; O2SAT 100
[2022-12-28] MEDS: INSULIN REGULAR, HUMAN 100 UNIT/ML 3 ML VIAL SQ PRN ×3 (05:43→17:19)
[2022-12-28] MEDS: BLOOD SUGAR DIAGNOSTIC 1 EACH STRIP IN SCH ×4 (05:43→23:43)
[2022-12-28] MEDS: IV D5W 1,000 ML IV PRN (05:54)
[2022-12-28 07:22] LABS: CALCIUM, SERUM 8.6 mg/dL (8.5-10.1); POTASSIUM 3.5 mmol/L (3.5-5.1)
[2022-12-28] MEDS: PROSOURCE / PROSTAT (PYXIS) 30 ML UDC GT SCH (07:57)
[2022-12-28 08:00] VITALS: BP 133/55; TEMP 99.7; O2SAT 100
[2022-12-28] MEDS: ACETAMINOPHEN 325 MG TABLET MC PRN ×3 (09:35→18:39)
[2022-12-28] MEDS: CHLORHEXIDINE GLUCONATE 15 ML UDC MM SCH ×2 (09:35→16:37)
[2022-12-28] MEDS: SODIUM POLYSTYRENE SULFONATE 15 G/60 ML BOTTLE GT SCH (09:35)
[2022-12-28] MEDS: ARGININE/GLUTAMINE/CALCIUM BMB 1 EACH POWD.PACK GT SCH ×2 (09:36→16:36)
[2022-12-28] MEDS: AMLODIPINE BESYLATE 5 MG TABLET GT SCH (09:36)
[2022-12-28] MEDS: SODIUM CHLORIDE 1000 MG TABLET GT SCH ×3 (09:36→16:38)
[2022-12-28] MEDS: FERROUS SULFATE UDC 300 MG/5 ML UDC GT SCH (09:36)
[2022-12-28] MEDS: PANTOPRAZOLE 40 MG/PACK PACK GT SCH (09:36)
[2022-12-28] MEDS: METOPROLOL TARTRATE 25 MG TABLET GT SCH ×2 (09:36→16:37)
[2022-12-28] MEDS: ASCORBIC ACID 500 MG TABLET GT SCH ×2 (09:37→16:37)
[2022-12-28] MEDS: THERAHONEY GEL 1.5 OZ TUBE TP SCH (09:40)
[2022-12-28] MEDS: Z GUARD REMEDY 4 OZ OINT TP SCH (09:40)
[2022-12-28 12:00] VITALS: BP 116/73; TEMP 100; O2SAT 100
[2022-12-28 13:38] VITALS: TEMP 100.2; O2SAT 100
[2022-12-28] MEDS: CEFTRIAXONE 1 G in IV D5W 50 ML IV SCH (14:55)
[2022-12-28 16:00] VITALS: BP 138/67; TEMP 99.7; O2SAT 100
[2022-12-28] MEDS: NEPRO 1,000 ML BOTTLE GT PRN (17:53)
[2022-12-28 20:00] VITALS: BP 124/51; TEMP 98.6; O2SAT 100
[2022-12-28] MEDS: INSULIN GLARGINE, 100 UNIT/ML CARTRIDGE SQ SCH (21:59)
[2022-12-29] VITALS (11 sets, daily range): BP systolic 113–138; BP diastolic 42–85; TEMP 98.4–99.2; O2SAT 100
[2022-12-29] MEDS: INSULIN REGULAR, HUMAN 100 UNIT/ML 3 ML VIAL SQ PRN ×4 (00:32→23:38)
[2022-12-29] MEDS: ALBUTEROL FS 2.5 MG/3 ML VIAL.NEB NEB SCH ×6 (04:11→23:30)
[2022-12-29] MEDS: IPRATROPIUM NEB FS 0.5 MG/2.5 ML AMPUL.NEB NEB SCH ×6 (04:11→23:30)
[2022-12-29] MEDS: IV D5W 1,000 ML IV PRN (04:33)
[2022-12-29] MEDS: BLOOD SUGAR DIAGNOSTIC 1 EACH STRIP IN SCH ×4 (05:48→23:38)
[2022-12-29] MEDS: PROSOURCE / PROSTAT (PYXIS) 30 ML UDC GT SCH (08:21)
[2022-12-29 08:23] LABS: BASOPHILS # (AUTO) 0.1 K/uL (0.0-0.2); BASOPHILS % (AUTO) 1.6 % (0.0-2.0); EOSINOPHILS # (AUTO) 0.7 K/uL (0.0-0.7); EOSINOPHILS % (AUTO) 9.7 % (0.0-6.0); HEMATOCRIT 21 % (33-45); LYMPHOCYTES # (AUTO) 0.6 K/uL (0.8-4.8); LYMPHOCYTES % (AUTO) 8.4 % (20.0-44.0); MEAN CORPUSCULAR HEMOGLOBIN 33 PG (26.0-33.0); MEAN CORPUSCULAR HGB CONC 32 g/dl (31.0-36.0); MEAN CORPUSCULAR VOLUME 101 fL (82-100); MONOCYTES # (AUTO) 0.6 K/uL (0.1-1.30); MONOCYTES % (AUTO) 8.9 % (2.0-12.0); NEUTROPHILS # (AUTO) 5.1 K/uL (1.8-8.9); NEUTROPHILS % (AUTO) 71.4 % (43.0-81.0); PLATELET COUNT (AUTO) 63 K/uL (150-450); RED BLOOD CELL COUNT(AUTO) 2.08 MIL/uL (4.0-5.2); RED CELL DISTRIBUTION WIDTH 17.7 % (11.5-15.0); WHITE BLOOD COUNT (AUTO) 7.1 K/uL (4.3-11.0)
[2022-12-29 08:35] LABS: HEMOGLOBIN 6.8 g/dL (11.5-14.8)
[2022-12-29 08:40] LABS: ALBUMIN 2.2 g/dL (3.4-5.0); BILIRUBIN,TOTAL 0.4 mg/dL (0.2-1.0); CALCIUM, SERUM 8.6 mg/dL (8.5-10.1); MAGNESIUM 1.6 mg/dL (1.8-2.4); PHOSPHORUS 2.2 mg/dL (2.5-4.9); POTASSIUM 3.5 mmol/L (3.5-5.1); TOTAL PROTEIN, SERUM 6.2 g/dL (6.4-8.2)
[2022-12-29] MEDS: METOPROLOL TARTRATE 25 MG TABLET GT SCH ×3 (09:00→16:04)
[2022-12-29] MEDS: AMLODIPINE BESYLATE 5 MG TABLET GT SCH ×2 (09:00→10:31)
[2022-12-29 09:16] LABS: ANISOCYTOSIS 1+; BAND % (MANUAL) 1 % (0.0-5.0); EOSINOPHILS % (MANUAL) 12 % (0-4); LYMPHOCYTES % (MANUAL) 17 % (16-48); MONOCYTES % (MANUAL) 5 % (0-11.0); NEUTROPHILS % (MANUAL) 65 (42-76); PLATELET ESTIMATE DECREASED
[2022-12-29] MEDS: SODIUM POLYSTYRENE SULFONATE 15 G/60 ML BOTTLE GT SCH (09:28)
[2022-12-29] MEDS: FERROUS SULFATE UDC 300 MG/5 ML UDC GT SCH (09:28)
[2022-12-29] MEDS: CHLORHEXIDINE GLUCONATE 15 ML UDC MM SCH ×2 (09:31→16:02)
[2022-12-29] MEDS: ASCORBIC ACID 500 MG TABLET GT SCH ×2 (09:31→16:02)
[2022-12-29] MEDS: SODIUM CHLORIDE 1000 MG TABLET GT SCH ×3 (09:31→16:02)
[2022-12-29] MEDS: THERAHONEY GEL 1.5 OZ TUBE TP SCH (09:33)
[2022-12-29] MEDS: Z GUARD REMEDY 4 OZ OINT TP SCH (09:35)
[2022-12-29] MEDS: ARGININE/GLUTAMINE/CALCIUM BMB 1 EACH POWD.PACK GT SCH ×2 (09:45→16:02)
[2022-12-29] MEDS ORDERED: MAGNESIUM OXIDE 400 MG TABLET GT ONE (11:00)
[2022-12-29] MEDS: CEFTRIAXONE 1 G in IV D5W 50 ML IV SCH (14:56)
[2022-12-29] MEDS ORDERED: NEUTRA PHOS 1 POWD.PACKET GT ONE (15:30)
[2022-12-29] MEDS: ACETAMINOPHEN 325 MG TABLET MC PRN (20:17)
[2022-12-29] MEDS: INSULIN GLARGINE, 100 UNIT/ML CARTRIDGE SQ SCH (21:31)
[2022-12-30] VITALS: BP 127/48; TEMP 99.1; O2SAT 100
[2022-12-30] MEDS: IPRATROPIUM NEB FS 0.5 MG/2.5 ML AMPUL.NEB NEB SCH ×7 (01:57→23:10)
[2022-12-30] MEDS: ALBUTEROL FS 2.5 MG/3 ML VIAL.NEB NEB SCH ×7 (01:57→23:10)
[2022-12-30 04:00] VITALS: BP 121/48; TEMP 99.2; O2SAT 100
[2022-12-30] MEDS: BLOOD SUGAR DIAGNOSTIC 1 EACH STRIP IN SCH ×4 (05:18→23:28)
[2022-12-30 06:43] LABS: BASOPHILS % (AUTO) 0.5 % (0.0-2.0); EOSINOPHILS # (AUTO) 0.6 K/uL (0.0-0.7); EOSINOPHILS % (AUTO) 8.3 % (0.0-6.0); HEMATOCRIT 23 % (33-45); HEMOGLOBIN 7.8 g/dL (11.5-14.8); LYMPHOCYTES # (AUTO) 0.8 K/uL (0.8-4.8); LYMPHOCYTES % (AUTO) 11.2 % (20.0-44.0); MEAN CORPUSCULAR HEMOGLOBIN 33 PG (26.0-33.0); MEAN CORPUSCULAR HGB CONC 34 g/dl (31.0-36.0); MEAN CORPUSCULAR VOLUME 95 fL (82-100); MONOCYTES # (AUTO) 0.8 K/uL (0.1-1.30); MONOCYTES % (AUTO) 11.7 % (2.0-12.0); NEUTROPHILS # (AUTO) 4.9 K/uL (1.8-8.9); NEUTROPHILS % (AUTO) 68.3 % (43.0-81.0); PLATELET COUNT (AUTO) 61 K/uL (150-450); RED BLOOD CELL COUNT(AUTO) 2.39 MIL/uL (4.0-5.2); RED CELL DISTRIBUTION WIDTH 16.7 % (11.5-15.0); WHITE BLOOD COUNT (AUTO) 7.2 K/uL (4.3-11.0)
[2022-12-30 07:05] LABS: CALCIUM, SERUM 8.5 mg/dL (8.5-10.1); MAGNESIUM 1.7 mg/dL (1.8-2.4); PHOSPHORUS 3.3 mg/dL (2.5-4.9); POTASSIUM 3.3 mmol/L (3.5-5.1)
[2022-12-30 07:48] LABS: ANISOCYTOSIS 1+; BAND % (MANUAL) 4 % (0.0-5.0); EOSINOPHILS % (MANUAL) 4 % (0-4); LYMPHOCYTES % (MANUAL) 9 % (16-48); MONOCYTES % (MANUAL) 11 % (0-11.0); NEUTROPHILS % (MANUAL) 72 (42-76); PLATELET ESTIMATE DECREASED
[2022-12-30 08:00] VITALS: BP 115/52; TEMP 99.1; O2SAT 100
[2022-12-30] MEDS: PROSOURCE / PROSTAT (PYXIS) 30 ML UDC GT SCH (08:00)
[2022-12-30] MEDS: SODIUM POLYSTYRENE SULFONATE 15 G/60 ML BOTTLE GT SCH (09:00)
[2022-12-30] MEDS: THERAHONEY GEL 1.5 OZ TUBE TP SCH (09:50)
[2022-12-30] MEDS: Z GUARD REMEDY 4 OZ OINT TP SCH (09:50)
[2022-12-30] MEDS: AMLODIPINE BESYLATE 5 MG TABLET GT SCH (09:53)
[2022-12-30] MEDS: FERROUS SULFATE UDC 300 MG/5 ML UDC GT SCH (09:53)
[2022-12-30] MEDS: CHLORHEXIDINE GLUCONATE 15 ML UDC MM SCH ×2 (09:53→17:18)
[2022-12-30] MEDS: SODIUM CHLORIDE 1000 MG TABLET GT SCH ×3 (09:54→17:18)
[2022-12-30] MEDS: FAMOTIDINE (20 MG) 20 MG TABLET PO SCH ×2 (09:54→21:38)
[2022-12-30] MEDS: ASCORBIC ACID 500 MG TABLET GT SCH ×2 (09:54→17:18)
[2022-12-30] MEDS: METOPROLOL TARTRATE 25 MG TABLET GT SCH ×2 (09:54→17:18)
[2022-12-30] MEDS: ARGININE/GLUTAMINE/CALCIUM BMB 1 EACH POWD.PACK GT SCH ×2 (09:55→17:14)
[2022-12-30] MEDS ORDERED: MAGNESIUM OXIDE 400 MG TABLET NG ONE (10:00)
[2022-12-30] MEDS ORDERED: POTASSIUM CL. PREMIX PERIPHER. 50 ML IV SCH (10:30)
[2022-12-30 12:00] VITALS: BP 112/67; TEMP 99.3; O2SAT 100
[2022-12-30] MEDS: CEFTRIAXONE 1 G in IV D5W 50 ML IV SCH (15:15)
[2022-12-30] MEDS: EPOETIN ALFA-EPBX 4,000 UNIT/ML VIAL SQ SCH (15:16)
[2022-12-30 16:00] VITALS: BP 121/54; TEMP 99.1; O2SAT 100
[2022-12-30 20:00] VITALS: BP 118/48; TEMP 98.6; O2SAT 100
[2022-12-30] MEDS: INSULIN GLARGINE, 100 UNIT/ML CARTRIDGE SQ SCH (22:16)
[2022-12-30] MEDS: IV D5W 1,000 ML IV PRN (22:21)
[2022-12-30] MEDS: INSULIN REGULAR, HUMAN 100 UNIT/ML 3 ML VIAL SQ PRN (23:29)
[2022-12-31] VITALS: BP 124/69; TEMP 99; O2SAT 100
[2022-12-31] MEDS: IPRATROPIUM NEB FS 0.5 MG/2.5 ML AMPUL.NEB NEB SCH ×4 (03:29→15:27)
[2022-12-31] MEDS: ALBUTEROL FS 2.5 MG/3 ML VIAL.NEB NEB SCH ×4 (03:29→15:27)
[2022-12-31 05:19] VITALS: BP 141/77; TEMP 99; O2SAT 100
[2022-12-31] MEDS: NEPRO 1,000 ML BOTTLE GT PRN (05:43)
[2022-12-31] MEDS: BLOOD SUGAR DIAGNOSTIC 1 EACH STRIP IN SCH ×3 (05:51→18:04)
[2022-12-31 08:00] VITALS: BP 146/67; TEMP 99; O2SAT 100
[2022-12-31 08:30] LABS: BASOPHILS % (AUTO) 0.5 % (0.0-2.0); EOSINOPHILS # (AUTO) 0.6 K/uL (0.0-0.7); EOSINOPHILS % (AUTO) 10.4 % (0.0-6.0); HEMATOCRIT 26 % (33-45); HEMOGLOBIN 8.9 g/dL (11.5-14.8); LYMPHOCYTES # (AUTO) 0.6 K/uL (0.8-4.8); LYMPHOCYTES % (AUTO) 11.2 % (20.0-44.0); MEAN CORPUSCULAR HEMOGLOBIN 33 PG (26.0-33.0); MEAN CORPUSCULAR HGB CONC 34 g/dl (31.0-36.0); MEAN CORPUSCULAR VOLUME 98 fL (82-100); MONOCYTES # (AUTO) 0.8 K/uL (0.1-1.30); MONOCYTES % (AUTO) 14.3 % (2.0-12.0); NEUTROPHILS # (AUTO) 3.6 K/uL (1.8-8.9); NEUTROPHILS % (AUTO) 63.6 % (43.0-81.0); PLATELET COUNT (AUTO) 88 K/uL (150-450); RED CELL DISTRIBUTION WIDTH 18.2 % (11.5-15.0); WHITE BLOOD COUNT (AUTO) 5.6 K/uL (4.3-11.0)
[2022-12-31 08:35] LABS: ALBUMIN 2.4 g/dL (3.4-5.0); BILIRUBIN,TOTAL 0.5 mg/dL (0.2-1.0); CALCIUM, SERUM 8.6 mg/dL (8.5-10.1); CREATININE 1.9 mg/dL (0.6-1.3); MAGNESIUM 1.8 mg/dL (1.8-2.4); PHOSPHORUS 3.6 mg/dL (2.5-4.9); POTASSIUM 3.5 mmol/L (3.5-5.1); TOTAL PROTEIN, SERUM 6.6 g/dL (6.4-8.2)
[2022-12-31] MEDS: AMLODIPINE BESYLATE 5 MG TABLET GT SCH (08:41)
[2022-12-31] MEDS: SODIUM CHLORIDE 1000 MG TABLET GT SCH ×3 (08:41→18:08)
[2022-12-31] MEDS: FAMOTIDINE (20 MG) 20 MG TABLET PO SCH (08:42)
[2022-12-31] MEDS: ARGININE/GLUTAMINE/CALCIUM BMB 1 EACH POWD.PACK GT SCH ×2 (08:44→17:00)
[2022-12-31] MEDS: FERROUS SULFATE UDC 300 MG/5 ML UDC GT SCH (08:44)
[2022-12-31] MEDS: PROSOURCE / PROSTAT (PYXIS) 30 ML UDC GT SCH (08:44)
[2022-12-31] MEDS: METOPROLOL TARTRATE 25 MG TABLET GT SCH ×2 (08:44→17:00)
[2022-12-31] MEDS: CHLORHEXIDINE GLUCONATE 15 ML UDC MM SCH ×2 (08:44→18:07)
[2022-12-31] MEDS: ASCORBIC ACID 500 MG TABLET GT SCH ×2 (08:44→18:08)
[2022-12-31] MEDS: Z GUARD REMEDY 4 OZ OINT TP SCH (08:45)
[2022-12-31] MEDS: THERAHONEY GEL 1.5 OZ TUBE TP SCH (08:45)
[2022-12-31] MEDS: SODIUM POLYSTYRENE SULFONATE 15 G/60 ML BOTTLE GT SCH (08:45)
[2022-12-31 09:30] LABS: BAND % (MANUAL) 2 % (0.0-5.0); EOSINOPHILS % (MANUAL) 9 % (0-4); LYMPHOCYTES % (MANUAL) 6 % (16-48); MONOCYTES % (MANUAL) 12 % (0-11.0); NEUTROPHILS % (MANUAL) 71 (42-76)
[2022-12-31 09:31] LABS: PLATELET ESTIMATE DECREASED
[2022-12-31 12:00] VITALS: BP 126/54; TEMP 99.1; O2SAT 100
[2022-12-31] MEDS: CEFTRIAXONE 1 G in IV D5W 50 ML IV SCH (15:32)
[2022-12-31 16:00] VITALS: BP 129/64; TEMP 99; O2SAT 100
[2022-12-31 17:00] VITALS: BP 130/56
[2022-12-31] MEDS: INSULIN REGULAR, HUMAN 100 UNIT/ML 3 ML VIAL SQ PRN (18:04)
== END 2022-12-31 20:10 | DRG 951 ==
LOC: ER 08:37 → TELE-TD 12:22 → TELE1 12-22 13:45
PROVIDERS: ADMIT Nurse Practitioner Acute Care; ATTEND Nurse Practitioner Acute Care
PROC: 5A1955Z Respiratory Ventilation, Greater than 96 Consecutive Hours (ICD-10-PCS; principal; 2022-12-21)
PROC: 0KBN3ZZ Excision of Right Hip Muscle, Percutaneous Approach (ICD-10-PCS; 2022-12-25)
PROC: 30233N1 Transfusion of Nonautologous Red Blood Cells into Peripheral Vein, Percutaneous Approach (ICD-10-PCS; 2022-12-25)
PROC: 0KBP3ZZ Excision of Left Hip Muscle, Percutaneous Approach (ICD-10-PCS; 2022-12-25)
PROC: 0KBP3ZZ Excision of Left Hip Muscle, Percutaneous Approach (ICD-10-PCS; 2022-12-30)
PROC: 0KBN3ZZ Excision of Right Hip Muscle, Percutaneous Approach (ICD-10-PCS; 2022-12-30)
DX: N17.0 Acute kidney failure with tubular necrosis (principal); G93.41 Metabolic encephalopathy; R40.3 Persistent vegetative state; L89.154 Pressure ulcer of sacral region, stage 4; R53.2 Functional quadriplegia; D69.6 Thrombocytopenia, unspecified; E87.20 Acidosis, unspecified; E87.0 Hyperosmolality and hypernatremia; N39.0 Urinary tract infection, site not specified; D63.8 Anemia in other chronic diseases classified elsewhere; Z99.11 Dependence on respirator [ventilator] status; Z93.0 Tracheostomy status; E87.6 Hypokalemia; Z66 Do not resuscitate; Z93.1 Gastrostomy status; R13.10 Dysphagia, unspecified; Z89.612 Acquired absence of left leg above knee; Z89.611 Acquired absence of right leg above knee; I12.9 Hypertensive chronic kidney disease with stage 1 through stage 4 chronic kidney disease, or unspecified chronic kidney disease; E11.22 Type 2 diabetes mellitus with diabetic chronic kidney disease; N18.4 Chronic kidney disease, stage 4 (severe); J96.10 Chronic respiratory failure, unspecified whether with hypoxia or hypercapnia; E66.01 Morbid (severe) obesity due to excess calories; Z68.38 Body mass index [BMI] 38.0-38.9, adult; E86.9 Volume depletion, unspecified; F03.90 Unspecified dementia, unspecified severity, without behavioral disturbance, psychotic disturbance, mood disturbance, and anxiety; Z79.4 Long term (current) use of insulin; Z79.899 Other long term (current) drug therapy; M89.8X9 Other specified disorders of bone, unspecified site; N28.1 Cyst of kidney, acquired; E11.51 Type 2 diabetes mellitus with diabetic peripheral angiopathy without gangrene; D75.89 Other specified diseases of blood and blood-forming organs
CPT/HCPCS: 31720; 36415; 71045-TC; 76770-TC; 80048-TC; 80053-TC; 80076-TC; 81001; 82550-TC; 82962-TC; 83605-TC; 83735-TC; 83970; 84100-TC; 84155; 84165; 84300-TC; 84484-TC; 85025-TC; 85730-TC; 86850-TC; 87040-TC; 87081-TC; 87086-TC; 94002-TC; 94003-TC; 94760-TC; 94762-TC; 94799-TC; 99082-TC; A4223; A6403; A7526; G0378; J0696; J0885; J1815; J2405; J3480; J3490; J7030; J7050; J7060; J7070; P9016

== ENCOUNTER 2023-01-23 11:08 | Inpatient (IN) | payer OTHER ==
[~2023-01-23] VITALS: Ht 106.7 cm; Wt 62.6 kg
[~2023-01-23 11:08] MED LIST changes: -ACET-2605 GT; +ALLA266C2 TP; +ARGI1POW13 GT; +COLL30OI TP; -CRAN3875 GT; +HYDR-4209 GT; +HYDR-4303 GT; -MIDO5TAB4 GT; -NA P133E RC; +PANT40SU2 GT; -SODI5POW2 GT; -ZINC1CAP2 PO
[2023-01-23 12:19] LABS: BASOPHILS % (AUTO) 0.6 % (0.0-2.0); EOSINOPHILS # (AUTO) 0.7 K/uL (0.0-0.7); EOSINOPHILS % (AUTO) 11.2 % (0.0-6.0); LYMPHOCYTES % (AUTO) 16.3 % (20.0-44.0); MEAN CORPUSCULAR HEMOGLOBIN 34 PG (26.0-33.0); MEAN CORPUSCULAR HGB CONC 32 g/dl (31.0-36.0); MEAN CORPUSCULAR VOLUME 107 fL (82-100); MONOCYTES # (AUTO) 0.5 K/uL (0.1-1.30); MONOCYTES % (AUTO) 8.9 % (2.0-12.0); NEUTROPHILS # (AUTO) 3.8 K/uL (1.8-8.9); PLATELET COUNT (AUTO) 103 K/uL (150-450); RED CELL DISTRIBUTION WIDTH 21.8 % (11.5-15.0)
[2023-01-23 12:29] LABS: HEMATOCRIT 20 % (33-45); HEMOGLOBIN 6.3 g/dL (11.5-14.8); RED BLOOD CELL COUNT(AUTO) 1.89 MIL/uL (4.0-5.2)
[2023-01-23] MEDS ORDERED: ACET-2605 GT (12:31)
[2023-01-23] MEDS ORDERED: NUTR1PAC14 GT (12:31)
[2023-01-23] MEDS ORDERED: FAMO20TA8 GT (12:31)
[2023-01-23] MEDS ORDERED: NA P133E RC (12:31)
[2023-01-23] MEDS ORDERED: SODI15OR6 GT (12:31)
[2023-01-23] MEDS ORDERED: INSU100V30 SQ (12:31)
[2023-01-23] MEDS ORDERED: ONDA4TAB5 GT (12:31)
[2023-01-23] MEDS ORDERED: CEPH500C2 GT (12:31)
[2023-01-23 12:33] LABS: ALBUMIN 2.5 g/dL (3.4-5.0); BILIRUBIN,DIRECT 0.1 mg/dL (0.0-0.2); BILIRUBIN,TOTAL 0.4 mg/dL (0.2-1.0); CALCIUM, SERUM 9.6 mg/dL (8.5-10.1); CREATININE 2.8 mg/dL (0.6-1.3); POTASSIUM 4.2 mmol/L (3.5-5.1); TOTAL PROTEIN, SERUM 7.3 g/dL (6.4-8.2)
[2023-01-23] MEDS ORDERED: IV NS 0.9% 1,000 ML BAG IV ONE (15:30)
[2023-01-23] MEDS: THERAHONEY GEL 1.5 OZ TUBE TP SCH (17:00)
[2023-01-23 17:32] LABS: ANISOCYTOSIS 1+; BAND % (MANUAL) 1 % (0.0-5.0); EOSINOPHILS % (MANUAL) 5 % (0-4); LYMPHOCYTES % (MANUAL) 10 % (16-48); MONOCYTES % (MANUAL) 5 % (0-11.0); NEUTROPHILS % (MANUAL) 79 (42-76); PLATELET ESTIMATE DECREASED
[2023-01-23] MEDS ORDERED: NEPRO 1,000 ML BOTTLE GT PRN ×2 (18:00→23:45)
[2023-01-23 20:00] VITALS: BP 130/85; TEMP 97.7; O2SAT 90
[2023-01-23] MEDS ORDERED: DEXTROSE 50%-WATER 50 ML DISP.SYRIN IV PRN (22:30)
[2023-01-23] MEDS ORDERED: ONDANSETRON HCL/PF 4 MG/2 ML VIAL IVP PRN (23:00)
[2023-01-23] MEDS ORDERED: SODIUM POLYSTYRENE SULFONATE 15 G/60 ML BOTTLE GT ONE (23:00)
[2023-01-23] MEDS ORDERED: ALBUTEROL FS 2.5 MG/3 ML VIAL.NEB NEB PRN (23:00)
[2023-01-23] MEDS ORDERED: IPRATROPIUM NEB FS 0.5 MG/2.5 ML AMPUL.NEB NEB PRN (23:00)
[2023-01-24] VITALS: BP 135/73; TEMP 98.6; O2SAT 100
[2023-01-24] MEDS ORDERED: MEROPENEM 500 MG in IV NS 0.9% 50 ML IV ONE ×2
[2023-01-24] MEDS ORDERED: VANCOMYCIN 1 GM in IV D5W 250ml IV ONE ×2
[2023-01-24] MEDS ORDERED: SODIUM POLYSTYRENE SULFONATE 15 G/60 ML BOTTLE ONE (00:20)
[2023-01-24] MEDS ORDERED: VANCOMYCIN 1 GM /D5W 250 ML PB IV ONE (00:21)
[2023-01-24] MEDS: BLOOD SUGAR DIAGNOSTIC 1 EACH STRIP IN SCH ×5 (00:22→23:50)
[2023-01-24] MEDS ORDERED: MEROPENEM 500 MG VIAL IV ONE (00:25)
[2023-01-24] MEDS: INSULIN REGULAR, HUMAN 100 UNIT/ML 3 ML VIAL SQ PRN ×4 (00:38→18:19)
[2023-01-24 04:00] VITALS: BP 128/61; TEMP 98.2; O2SAT 100
[2023-01-24 05:45] LABS: ABG BASE EXCESS -9.2 mmol/L; ABG PCO2 27.8 mmHg (35.0-45.0); ABG PH 7.356 (7.350-7.450); ABG TOTAL HEMOGLOBIN 8.4 G/dL (12.0-16.0); AaDO2 135.2 mmHg; COHb 0.1 % (0.5-1.5); MetHb 0.3 % (0.0-1.5); O2Hb 97.6 % (94.0-97.0); PEEP,BG 5 cm H2O; SITE, ABG Right Radial; VENT MODE, BG AC 12 550 40% +5; VT, ABG 550 mL
[2023-01-24] MEDS: IV D5W 1,000 ML IV PRN ×2 (05:58→12:07)
[2023-01-24 05:59] LABS: BASOPHILS # (AUTO) 0.1 K/uL (0.0-0.2); BASOPHILS % (AUTO) 0.8 % (0.0-2.0); EOSINOPHILS # (AUTO) 0.4 K/uL (0.0-0.7); EOSINOPHILS % (AUTO) 7.1 % (0.0-6.0); LYMPHOCYTES % (AUTO) 16.4 % (20.0-44.0); MEAN CORPUSCULAR HEMOGLOBIN 34 PG (26.0-33.0); MEAN CORPUSCULAR HGB CONC 32 g/dl (31.0-36.0); MEAN CORPUSCULAR VOLUME 109 fL (82-100); MONOCYTES # (AUTO) 0.5 K/uL (0.1-1.30); MONOCYTES % (AUTO) 8.9 % (2.0-12.0); NEUTROPHILS # (AUTO) 4.1 K/uL (1.8-8.9); NEUTROPHILS % (AUTO) 66.8 % (43.0-81.0); PLATELET COUNT (AUTO) 86 K/uL (150-450); RED CELL DISTRIBUTION WIDTH 22.2 % (11.5-15.0); WHITE BLOOD COUNT (AUTO) 6.1 K/uL (4.3-11.0)
[2023-01-24 06:08] LABS: RED BLOOD CELL COUNT(AUTO) 1.86 MIL/uL (4.0-5.2)
[2023-01-24 06:10] LABS: HEMOGLOBIN 6.4 g/dL (11.5-14.8)
[2023-01-24 06:11] LABS: CALCIUM, SERUM 8.9 mg/dL (8.5-10.1); CREATININE 2.8 mg/dL (0.6-1.3); HEMATOCRIT 20 % (33-45); MAGNESIUM 2.5 mg/dL (1.8-2.4); PHOSPHORUS 4.3 mg/dL (2.5-4.9); POTASSIUM 4.1 mmol/L (3.5-5.1)
[2023-01-24 07:00] VITALS: BP 128/66; TEMP 99.9; O2SAT 100
[2023-01-24] MEDS: ENOXAPARIN SODIUM 30 MG/0.3 ML DISP.SYRIN SQ SCH (09:00)
[2023-01-24] MEDS: FERROUS SULFATE UDC 300 MG/5 ML UDC GT SCH (10:01)
[2023-01-24] MEDS: METOPROLOL TARTRATE 25 MG TABLET GT SCH ×2 (10:02→18:15)
[2023-01-24] MEDS: AMLODIPINE BESYLATE 5 MG TABLET GT SCH (10:02)
[2023-01-24] MEDS: THERAHONEY GEL 1.5 OZ TUBE TP SCH (10:05)
[2023-01-24 16:00] VITALS: BP 131/57; TEMP 99; O2SAT 100
[2023-01-24 16:11] LABS: EOSINOPHILS % (MANUAL) 3 % (0-4); LYMPHOCYTES % (MANUAL) 13 % (16-48); MONOCYTES % (MANUAL) 7 % (0-11.0); NEUTROPHILS % (MANUAL) 76 (42-76); PLATELET ESTIMATE DECREASED; PROMYELOCYTES % 1 % (0-0)
[2023-01-24 16:12] LABS: ANISOCYTOSIS 1+; OVALOCYTES 1+
[2023-01-24] MEDS: ARGININE/GLUTAMINE/CALCIUM BMB 1 EACH POWD.PACK GT SCH (17:00)
[2023-01-24 18:06] VITALS: BP 113/78; TEMP 101.1; O2SAT 100
[2023-01-24] MEDS: EPOETIN ALFA-EPBX 4,000 UNIT/ML VIAL SQ SCH (18:16)
[2023-01-24] MEDS: NEPRO 1,000 ML BOTTLE GT PRN (18:16)
[2023-01-24] MEDS: ACETAMINOPHEN 650 MG/SUPP.RECT RC PRN (18:16)
[2023-01-24 20:00] VITALS: BP 116/66; TEMP 100.8; TEMP 98.6; O2SAT 100
[2023-01-24] MEDS: INSULIN GLARGINE, 100 UNIT/ML CARTRIDGE SQ SCH (22:10)
[2023-01-25] VITALS: BP 125/54; TEMP 98.6; O2SAT 100
[2023-01-25] MEDS: INSULIN REGULAR, HUMAN 100 UNIT/ML 3 ML VIAL SQ PRN ×4 (00:07→17:28)
[2023-01-25] MEDS: IV D5W 1,000 ML IV PRN ×3 (00:15→22:36)
[2023-01-25] MEDS: MEROPENEM 500 MG in IV NS 0.9% 50 ML IV SCH (00:17)
[2023-01-25 04:00] VITALS: BP 126/55; TEMP 98.6; O2SAT 100
[2023-01-25] MEDS: BLOOD SUGAR DIAGNOSTIC 1 EACH STRIP IN SCH ×3 (05:42→17:14)
[2023-01-25 08:00] VITALS: BP 134/60; TEMP 98.4; O2SAT 100
[2023-01-25] MEDS: FERROUS SULFATE UDC 300 MG/5 ML UDC GT SCH (08:56)
[2023-01-25] MEDS: AMLODIPINE BESYLATE 5 MG TABLET GT SCH (08:57)
[2023-01-25] MEDS: METOPROLOL TARTRATE 25 MG TABLET GT SCH ×2 (08:57→16:24)
[2023-01-25] MEDS: ARGININE/GLUTAMINE/CALCIUM BMB 1 EACH POWD.PACK GT SCH ×2 (08:57→16:23)
[2023-01-25] MEDS: PROSOURCE / PROSTAT (PYXIS) 30 ML UDC GT SCH (08:57)
[2023-01-25] MEDS: ENOXAPARIN SODIUM 30 MG/0.3 ML DISP.SYRIN SQ SCH (08:57)
[2023-01-25] MEDS: THERAHONEY GEL 1.5 OZ TUBE TP SCH (08:58)
[2023-01-25 10:52] LABS: CALCIUM, SERUM 8.5 mg/dL (8.5-10.1); CREATININE 2.6 mg/dL (0.6-1.3); POTASSIUM 2.9 mmol/L (3.5-5.1)
[2023-01-25] MEDS: POTASSIUM CL. PREMIX PERIPHER. 50 ML IV SCH ×3 (12:58→15:04)
[2023-01-25 16:00] VITALS: BP 134/60; TEMP 98.4; O2SAT 100
[2023-01-25 20:00] VITALS: BP 132/48; TEMP 99.9; O2SAT 100
[2023-01-25] MEDS: INSULIN GLARGINE, 100 UNIT/ML CARTRIDGE SQ SCH (22:29)
[2023-01-26] VITALS: BP 127/55; TEMP 99.5; O2SAT 100
[2023-01-26] MEDS: BLOOD SUGAR DIAGNOSTIC 1 EACH STRIP IN SCH ×4 (00:02→17:26)
[2023-01-26] MEDS: VANCOMYCIN 1 GM in IV D5W 250 ML IV SCH (00:25)
[2023-01-26] MEDS: MEROPENEM 500 MG in IV NS 0.9% 50 ML IV SCH (01:06)
[2023-01-26] MEDS: INSULIN REGULAR, HUMAN 100 UNIT/ML 3 ML VIAL SQ PRN ×3 (06:00→17:25)
[2023-01-26] MEDS: NEPRO 1,000 ML BOTTLE GT PRN (06:02)
[2023-01-26 06:13] LABS: CREATININE 2.5 mg/dL (0.6-1.3); POTASSIUM 3.4 mmol/L (3.5-5.1)
[2023-01-26 07:30] VITALS: BP 128/50; TEMP 99.3; O2SAT 100
[2023-01-26] MEDS: PROSOURCE / PROSTAT (PYXIS) 30 ML UDC GT SCH (08:59)
[2023-01-26] MEDS: ARGININE/GLUTAMINE/CALCIUM BMB 1 EACH POWD.PACK GT SCH ×2 (08:59→16:22)
[2023-01-26] MEDS: FERROUS SULFATE UDC 300 MG/5 ML UDC GT SCH (08:59)
[2023-01-26] MEDS: AMLODIPINE BESYLATE 5 MG TABLET GT SCH (09:00)
[2023-01-26] MEDS: METOPROLOL TARTRATE 25 MG TABLET GT SCH ×2 (09:00→16:22)
[2023-01-26] MEDS: ENOXAPARIN SODIUM 30 MG/0.3 ML DISP.SYRIN SQ SCH (09:00)
[2023-01-26] MEDS: THERAHONEY GEL 1.5 OZ TUBE TP SCH (09:01)
[2023-01-26 11:12] LABS: BASOPHILS % (AUTO) 0.7 % (0.0-2.0); EOSINOPHILS # (AUTO) 0.4 K/uL (0.0-0.7); EOSINOPHILS % (AUTO) 7.5 % (0.0-6.0); LYMPHOCYTES # (AUTO) 0.7 K/uL (0.8-4.8); LYMPHOCYTES % (AUTO) 12.7 % (20.0-44.0); MEAN CORPUSCULAR HEMOGLOBIN 35 PG (26.0-33.0); MEAN CORPUSCULAR HGB CONC 33 g/dl (31.0-36.0); MEAN CORPUSCULAR VOLUME 106 fL (82-100); MONOCYTES # (AUTO) 0.4 K/uL (0.1-1.30); MONOCYTES % (AUTO) 6.8 % (2.0-12.0); NEUTROPHILS # (AUTO) 4.2 K/uL (1.8-8.9); NEUTROPHILS % (AUTO) 72.3 % (43.0-81.0); PLATELET COUNT (AUTO) 80 K/uL (150-450); RED CELL DISTRIBUTION WIDTH 21.8 % (11.5-15.0); WHITE BLOOD COUNT (AUTO) 5.8 K/uL (4.3-11.0)
[2023-01-26] MEDS ORDERED: POTASSIUM CHLORIDE 10 MEQ TABLET.SA PO ONE (12:30)
[2023-01-26 12:38] LABS: RED BLOOD CELL COUNT(AUTO) 1.56 MIL/uL (4.0-5.2)
[2023-01-26 12:40] LABS: HEMATOCRIT 17 % (33-45); HEMOGLOBIN 5.4 g/dL (11.5-14.8)
[2023-01-26] MEDS: IV 1/2NS 1000 ML 1,000 ML IV PRN (13:45)
[2023-01-26 16:00] VITALS: BP 118/58; TEMP 98.6; O2SAT 100
[2023-01-26 18:04] LABS: ANISOCYTOSIS 1+; BAND % (MANUAL) 2 % (0.0-5.0); EOSINOPHILS % (MANUAL) 9 % (0-4); LYMPHOCYTES % (MANUAL) 9 % (16-48); MONOCYTES % (MANUAL) 5 % (0-11.0); NEUTROPHILS % (MANUAL) 75 (42-76); PLATELET ESTIMATE DECREASED
[2023-01-26 18:05] LABS: ROULEAUX 1+
[2023-01-26 20:00] VITALS: BP 122/77; TEMP 99.5; O2SAT 99
[2023-01-26] MEDS: INSULIN GLARGINE, 100 UNIT/ML CARTRIDGE SQ SCH (22:38)
[2023-01-26] MEDS: ACETAMINOPHEN 650 MG/SUPP.RECT RC PRN (23:47)
[2023-01-27] VITALS (10 sets, daily range): BP systolic 102–151; BP diastolic 47–73; TEMP 98.1–99.7; O2SAT 100
[2023-01-27] MEDS: BLOOD SUGAR DIAGNOSTIC 1 EACH STRIP IN SCH ×4 (00:26→17:25)
[2023-01-27] MEDS: INSULIN REGULAR, HUMAN 100 UNIT/ML 3 ML VIAL SQ PRN ×4 (00:30→17:25)
[2023-01-27] MEDS: MEROPENEM 500 MG in IV NS 0.9% 50 ML IV SCH (01:13)
[2023-01-27] MEDS: IV 1/2NS 1000 ML 1,000 ML IV PRN (06:04)
[2023-01-27 06:51] LABS: BASOPHILS % (AUTO) 0.5 % (0.0-2.0); EOSINOPHILS # (AUTO) 0.6 K/uL (0.0-0.7); EOSINOPHILS % (AUTO) 8.8 % (0.0-6.0); HEMATOCRIT 25 % (33-45); HEMOGLOBIN 8.4 g/dL (11.5-14.8); LYMPHOCYTES # (AUTO) 0.9 K/uL (0.8-4.8); LYMPHOCYTES % (AUTO) 12.2 % (20.0-44.0); MEAN CORPUSCULAR HEMOGLOBIN 34 PG (26.0-33.0); MEAN CORPUSCULAR HGB CONC 34 g/dl (31.0-36.0); MEAN CORPUSCULAR VOLUME 99 fL (82-100); MONOCYTES # (AUTO) 0.6 K/uL (0.1-1.30); MONOCYTES % (AUTO) 8.8 % (2.0-12.0); NEUTROPHILS # (AUTO) 4.9 K/uL (1.8-8.9); NEUTROPHILS % (AUTO) 69.7 % (43.0-81.0); PLATELET COUNT (AUTO) 83 K/uL (150-450); RED BLOOD CELL COUNT(AUTO) 2.48 MIL/uL (4.0-5.2); RED CELL DISTRIBUTION WIDTH 18.2 % (11.5-15.0)
[2023-01-27 07:28] LABS: CREATININE 2.2 mg/dL (0.6-1.3); PHOSPHORUS 3.7 mg/dL (2.5-4.9); POTASSIUM 3.7 mmol/L (3.5-5.1)
[2023-01-27] MEDS: PROSOURCE / PROSTAT (PYXIS) 30 ML UDC GT SCH (08:52)
[2023-01-27] MEDS: ARGININE/GLUTAMINE/CALCIUM BMB 1 EACH POWD.PACK GT SCH ×2 (08:52→16:27)
[2023-01-27] MEDS: METOPROLOL TARTRATE 25 MG TABLET GT SCH ×2 (08:53→16:28)
[2023-01-27] MEDS: FERROUS SULFATE UDC 300 MG/5 ML UDC GT SCH (08:53)
[2023-01-27 08:54] LABS: BAND % (MANUAL) 2 % (0.0-5.0); EOSINOPHILS % (MANUAL) 9 % (0-4); LYMPHOCYTES % (MANUAL) 1 % (16-48); MONOCYTES % (MANUAL) 4 % (0-11.0); NEUTROPHILS % (MANUAL) 84 (42-76); PLATELET ESTIMATE DECREASED
[2023-01-27] MEDS: AMLODIPINE BESYLATE 5 MG TABLET GT SCH (08:54)
[2023-01-27] MEDS: ENOXAPARIN SODIUM 30 MG/0.3 ML DISP.SYRIN SQ SCH (08:55)
[2023-01-27] MEDS: THERAHONEY GEL 1.5 OZ TUBE TP SCH (09:26)
[2023-01-27] MEDS: NEPRO 1,000 ML BOTTLE GT PRN (15:38)
[2023-01-27] MEDS: EPOETIN ALFA-EPBX 4,000 UNIT/ML VIAL SQ SCH (17:03)
[2023-01-27] MEDS: INSULIN GLARGINE, 100 UNIT/ML CARTRIDGE SQ SCH (22:52)
[2023-01-28] VITALS: BP 113/71; TEMP 98.8; O2SAT 100
[2023-01-28] MEDS: VANCOMYCIN 1 GM in IV D5W 250 ML IV SCH (00:23)
[2023-01-28] MEDS: BLOOD SUGAR DIAGNOSTIC 1 EACH STRIP IN SCH ×5 (00:23→23:37)
[2023-01-28] MEDS: INSULIN REGULAR, HUMAN 100 UNIT/ML 3 ML VIAL SQ PRN ×2 (00:59→05:59)
[2023-01-28] MEDS: MEROPENEM 500 MG in IV NS 0.9% 50 ML IV SCH (01:40)
[2023-01-28 04:00] VITALS: BP 112/48; TEMP 98.4; O2SAT 100
[2023-01-28 06:30] LABS: BASOPHILS % (AUTO) 0.5 % (0.0-2.0); EOSINOPHILS # (AUTO) 0.5 K/uL (0.0-0.7); EOSINOPHILS % (AUTO) 9.7 % (0.0-6.0); HEMATOCRIT 21 % (33-45); HEMOGLOBIN 7.1 g/dL (11.5-14.8); LYMPHOCYTES # (AUTO) 0.7 K/uL (0.8-4.8); LYMPHOCYTES % (AUTO) 14.2 % (20.0-44.0); MEAN CORPUSCULAR HEMOGLOBIN 34 PG (26.0-33.0); MEAN CORPUSCULAR HGB CONC 34 g/dl (31.0-36.0); MEAN CORPUSCULAR VOLUME 100 fL (82-100); MONOCYTES # (AUTO) 0.5 K/uL (0.1-1.30); MONOCYTES % (AUTO) 9.9 % (2.0-12.0); NEUTROPHILS # (AUTO) 3.4 K/uL (1.8-8.9); NEUTROPHILS % (AUTO) 65.7 % (43.0-81.0); PLATELET COUNT (AUTO) 79 K/uL (150-450); RED BLOOD CELL COUNT(AUTO) 2.12 MIL/uL (4.0-5.2); RED CELL DISTRIBUTION WIDTH 19.5 % (11.5-15.0); WHITE BLOOD COUNT (AUTO) 5.1 K/uL (4.3-11.0)
[2023-01-28 06:54] LABS: CALCIUM, SERUM 9.2 mg/dL (8.5-10.1); CREATININE 2.1 mg/dL (0.6-1.3); PHOSPHORUS 3.4 mg/dL (2.5-4.9); POTASSIUM 3.6 mmol/L (3.5-5.1)
[2023-01-28 07:49] LABS: BAND % (MANUAL) 1 % (0.0-5.0); EOSINOPHILS % (MANUAL) 13 % (0-4); LYMPHOCYTES % (MANUAL) 11 % (16-48); MONOCYTES % (MANUAL) 3 % (0-11.0); NEUTROPHILS % (MANUAL) 72 (42-76)
[2023-01-28 07:50] LABS: ANISOCYTOSIS 1+; PLATELET ESTIMATE DECREASED
[2023-01-28 08:00] VITALS: BP 127/48; TEMP 98.2; O2SAT 99
[2023-01-28] MEDS: FERROUS SULFATE UDC 300 MG/5 ML UDC GT SCH (08:24)
[2023-01-28] MEDS: AMLODIPINE BESYLATE 5 MG TABLET GT SCH (08:25)
[2023-01-28] MEDS: METOPROLOL TARTRATE 25 MG TABLET GT SCH ×2 (08:27→17:47)
[2023-01-28] MEDS: PROSOURCE / PROSTAT (PYXIS) 30 ML UDC GT SCH (08:27)
[2023-01-28] MEDS: THERAHONEY GEL 1.5 OZ TUBE TP SCH (08:30)
[2023-01-28] MEDS: ARGININE/GLUTAMINE/CALCIUM BMB 1 EACH POWD.PACK GT SCH ×2 (08:31→17:48)
[2023-01-28] MEDS: ENOXAPARIN SODIUM 30 MG/0.3 ML DISP.SYRIN SQ SCH (09:00)
[2023-01-28 16:00] VITALS: BP 133/55; TEMP 98.8; O2SAT 94
[2023-01-28 20:00] VITALS: BP 122/66; TEMP 98.1; O2SAT 100
[2023-01-28] MEDS: INSULIN GLARGINE, 100 UNIT/ML CARTRIDGE SQ SCH (21:50)
[2023-01-29] VITALS: BP 112/49; TEMP 98.9; O2SAT 100
[2023-01-29] MEDS: MEROPENEM 500 MG in IV NS 0.9% 50 ML IV SCH (00:34)
[2023-01-29 04:00] VITALS: BP 133/54; TEMP 97.5; O2SAT 95
[2023-01-29] MEDS: BLOOD SUGAR DIAGNOSTIC 1 EACH STRIP IN SCH ×3 (05:20→17:31)
[2023-01-29] MEDS: INSULIN REGULAR, HUMAN 100 UNIT/ML 3 ML VIAL SQ PRN ×3 (05:23→17:32)
[2023-01-29 05:55] LABS: BASOPHILS % (AUTO) 0.7 % (0.0-2.0); EOSINOPHILS # (AUTO) 0.5 K/uL (0.0-0.7); EOSINOPHILS % (AUTO) 9.3 % (0.0-6.0); HEMATOCRIT 25 % (33-45); HEMOGLOBIN 8.4 g/dL (11.5-14.8); LYMPHOCYTES # (AUTO) 0.8 K/uL (0.8-4.8); LYMPHOCYTES % (AUTO) 14.7 % (20.0-44.0); MEAN CORPUSCULAR HEMOGLOBIN 34 PG (26.0-33.0); MEAN CORPUSCULAR HGB CONC 34 g/dl (31.0-36.0); MEAN CORPUSCULAR VOLUME 99 fL (82-100); MONOCYTES # (AUTO) 0.9 K/uL (0.1-1.30); MONOCYTES % (AUTO) 15.9 % (2.0-12.0); NEUTROPHILS # (AUTO) 3.2 K/uL (1.8-8.9); NEUTROPHILS % (AUTO) 59.4 % (43.0-81.0); PLATELET COUNT (AUTO) 82 K/uL (150-450); RED BLOOD CELL COUNT(AUTO) 2.47 MIL/uL (4.0-5.2); RED CELL DISTRIBUTION WIDTH 20.4 % (11.5-15.0); WHITE BLOOD COUNT (AUTO) 5.5 K/uL (4.3-11.0)
[2023-01-29 06:12] LABS: CALCIUM, SERUM 9.3 mg/dL (8.5-10.1); CREATININE 2.1 mg/dL (0.6-1.3); MAGNESIUM 2.1 mg/dL (1.8-2.4); PHOSPHORUS 4.7 mg/dL (2.5-4.9); POTASSIUM 3.9 mmol/L (3.5-5.1)
[2023-01-29 08:00] VITALS: BP 142/52; TEMP 98.2; O2SAT 100
[2023-01-29] MEDS: ENOXAPARIN SODIUM 30 MG/0.3 ML DISP.SYRIN SQ SCH (09:00)
[2023-01-29] MEDS: FERROUS SULFATE UDC 300 MG/5 ML UDC GT SCH (09:34)
[2023-01-29] MEDS: AMLODIPINE BESYLATE 5 MG TABLET GT SCH (09:36)
[2023-01-29] MEDS: METOPROLOL TARTRATE 25 MG TABLET GT SCH ×2 (09:36→16:40)
[2023-01-29] MEDS: PROSOURCE / PROSTAT (PYXIS) 30 ML UDC GT SCH (09:42)
[2023-01-29] MEDS: ARGININE/GLUTAMINE/CALCIUM BMB 1 EACH POWD.PACK GT SCH ×2 (09:42→16:40)
[2023-01-29] MEDS: THERAHONEY GEL 1.5 OZ TUBE TP SCH (09:43)
[2023-01-29 10:02] LABS: BAND % (MANUAL) 1 % (0.0-5.0); EOSINOPHILS % (MANUAL) 9 % (0-4); LYMPHOCYTES % (MANUAL) 10 % (16-48); MONOCYTES % (MANUAL) 7 % (0-11.0); NEUTROPHILS % (MANUAL) 73 (42-76)
[2023-01-29 10:03] LABS: PLATELET ESTIMATE DECREASED
[2023-01-29] MEDS: IV NS 0.9% 1,000 ML IV PRN (10:24)
[2023-01-29 12:00] VITALS: BP 131/75; TEMP 98.4; O2SAT 100
[2023-01-29 15:52] VITALS: BP 132/68; TEMP 98.8; O2SAT 100
[2023-01-29] MEDS: EPOETIN ALFA-EPBX 4,000 UNIT/ML VIAL SQ SCH (17:25)
[2023-01-29] MEDS: INSULIN GLARGINE, 100 UNIT/ML CARTRIDGE SQ SCH (21:08)
[2023-01-30] VITALS: BP 123/47; TEMP 98.5; O2SAT 100
[2023-01-30] MEDS: BLOOD SUGAR DIAGNOSTIC 1 EACH STRIP IN SCH ×4 (00:21→18:00)
[2023-01-30] MEDS: VANCOMYCIN 1 GM in IV D5W 250 ML IV SCH (00:22)
[2023-01-30] MEDS: INSULIN REGULAR, HUMAN 100 UNIT/ML 3 ML VIAL SQ PRN ×4 (00:25→18:06)
[2023-01-30] MEDS: MEROPENEM 500 MG in IV NS 0.9% 50 ML IV SCH (01:13)
[2023-01-30 06:02] LABS: CALCIUM, SERUM 9.4 mg/dL (8.5-10.1); PHOSPHORUS 4.3 mg/dL (2.5-4.9); POTASSIUM 3.8 mmol/L (3.5-5.1)
[2023-01-30 06:09] LABS: BASOPHILS % (AUTO) 0.8 % (0.0-2.0); EOSINOPHILS # (AUTO) 0.5 K/uL (0.0-0.7); EOSINOPHILS % (AUTO) 10.9 % (0.0-6.0); HEMATOCRIT 24 % (33-45); HEMOGLOBIN 8.1 g/dL (11.5-14.8); LYMPHOCYTES # (AUTO) 0.8 K/uL (0.8-4.8); LYMPHOCYTES % (AUTO) 18.1 % (20.0-44.0); MEAN CORPUSCULAR HEMOGLOBIN 34 PG (26.0-33.0); MEAN CORPUSCULAR HGB CONC 34 g/dl (31.0-36.0); MEAN CORPUSCULAR VOLUME 101 fL (82-100); MONOCYTES # (AUTO) 0.6 K/uL (0.1-1.30); MONOCYTES % (AUTO) 13.6 % (2.0-12.0); NEUTROPHILS # (AUTO) 2.6 K/uL (1.8-8.9); NEUTROPHILS % (AUTO) 56.6 % (43.0-81.0); PLATELET COUNT (AUTO) 81 K/uL (150-450); RED BLOOD CELL COUNT(AUTO) 2.37 MIL/uL (4.0-5.2); RED CELL DISTRIBUTION WIDTH 21.8 % (11.5-15.0); WHITE BLOOD COUNT (AUTO) 4.6 K/uL (4.3-11.0)
[2023-01-30 08:00] VITALS: BP 112/54; TEMP 98.8; O2SAT 100
[2023-01-30] MEDS: FERROUS SULFATE UDC 300 MG/5 ML UDC GT SCH (08:33)
[2023-01-30] MEDS: METOPROLOL TARTRATE 25 MG TABLET GT SCH ×2 (08:34→16:08)
[2023-01-30] MEDS: AMLODIPINE BESYLATE 5 MG TABLET GT SCH (08:35)
[2023-01-30] MEDS: THERAHONEY GEL 1.5 OZ TUBE TP SCH (08:37)
[2023-01-30] MEDS: PROSOURCE / PROSTAT (PYXIS) 30 ML UDC GT SCH (08:49)
[2023-01-30] MEDS: ARGININE/GLUTAMINE/CALCIUM BMB 1 EACH POWD.PACK GT SCH ×2 (08:50→16:20)
[2023-01-30] MEDS: ENOXAPARIN SODIUM 30 MG/0.3 ML DISP.SYRIN SQ SCH (09:00)
[2023-01-30] MEDS: IV NS 0.9% 1,000 ML IV PRN (10:40)
[2023-01-30 11:28] VITALS: BP 126/55; TEMP 100.4; O2SAT 100
[2023-01-30] MEDS: ACETAMINOPHEN 650 MG/SUPP.RECT RC PRN (12:41)
[2023-01-30 14:00] VITALS: TEMP 99.1
[2023-01-30 14:25] LABS: EOSINOPHILS % (MANUAL) 9 % (0-4); LYMPHOCYTES % (MANUAL) 11 % (16-48); MONOCYTES % (MANUAL) 12 % (0-11.0); PLATELET ESTIMATE DECREASED
[2023-01-30 14:26] LABS: BAND % (MANUAL) 2 % (0.0-5.0); NEUTROPHILS % (MANUAL) 66 (42-76)
[2023-01-30] MEDS: CEFTRIAXONE 2 G in IV D5W 100 ML IV SCH (15:39)
[2023-01-30 16:00] VITALS: BP 119/55; TEMP 99; O2SAT 100
[2023-01-30 20:00] VITALS: BP 133/58; TEMP 99.9; O2SAT 100
[2023-01-30] MEDS: INSULIN GLARGINE, 100 UNIT/ML CARTRIDGE SQ SCH (21:24)
[2023-01-31] VITALS: BP 133/61; TEMP 98.2; O2SAT 100
[2023-01-31] MEDS: BLOOD SUGAR DIAGNOSTIC 1 EACH STRIP IN SCH ×4 (01:14→18:14)
[2023-01-31] MEDS: INSULIN REGULAR, HUMAN 100 UNIT/ML 3 ML VIAL SQ PRN ×4 (01:15→17:40)
[2023-01-31 04:00] VITALS: BP 128/48; TEMP 98.9; O2SAT 100
[2023-01-31] MEDS: NEPRO 1,000 ML BOTTLE GT PRN (04:53)
[2023-01-31] MEDS: IV NS 0.9% 1,000 ML IV PRN (05:32)
[2023-01-31 06:34] LABS: BASOPHILS % (AUTO) 0.6 % (0.0-2.0); EOSINOPHILS # (AUTO) 0.5 K/uL (0.0-0.7); EOSINOPHILS % (AUTO) 9.1 % (0.0-6.0); HEMATOCRIT 24 % (33-45); HEMOGLOBIN 7.8 g/dL (11.5-14.8); LYMPHOCYTES # (AUTO) 0.7 K/uL (0.8-4.8); LYMPHOCYTES % (AUTO) 13.9 % (20.0-44.0); MEAN CORPUSCULAR HEMOGLOBIN 34 PG (26.0-33.0); MEAN CORPUSCULAR HGB CONC 33 g/dl (31.0-36.0); MEAN CORPUSCULAR VOLUME 101 fL (82-100); MONOCYTES # (AUTO) 0.7 K/uL (0.1-1.30); MONOCYTES % (AUTO) 12.7 % (2.0-12.0); NEUTROPHILS # (AUTO) 3.3 K/uL (1.8-8.9); NEUTROPHILS % (AUTO) 63.7 % (43.0-81.0); PLATELET COUNT (AUTO) 75 K/uL (150-450); RED BLOOD CELL COUNT(AUTO) 2.32 MIL/uL (4.0-5.2); RED CELL DISTRIBUTION WIDTH 21.7 % (11.5-15.0); WHITE BLOOD COUNT (AUTO) 5.2 K/uL (4.3-11.0)
[2023-01-31 06:52] LABS: CALCIUM, SERUM 9.7 mg/dL (8.5-10.1); PHOSPHORUS 3.4 mg/dL (2.5-4.9); POTASSIUM 3.9 mmol/L (3.5-5.1)
[2023-01-31 08:00] VITALS: BP 129/56; TEMP 99.5; O2SAT 100
[2023-01-31] MEDS: ENOXAPARIN SODIUM 30 MG/0.3 ML DISP.SYRIN SQ SCH (09:00)
[2023-01-31] MEDS: AMLODIPINE BESYLATE 5 MG TABLET GT SCH (09:20)
[2023-01-31] MEDS: FERROUS SULFATE UDC 300 MG/5 ML UDC GT SCH (09:21)
[2023-01-31] MEDS: METOPROLOL TARTRATE 25 MG TABLET GT SCH ×2 (09:21→16:54)
[2023-01-31] MEDS: ARGININE/GLUTAMINE/CALCIUM BMB 1 EACH POWD.PACK GT SCH ×2 (09:21→16:53)
[2023-01-31] MEDS: THERAHONEY GEL 1.5 OZ TUBE TP SCH (09:21)
[2023-01-31] MEDS: PROSOURCE / PROSTAT (PYXIS) 30 ML UDC GT SCH (09:22)
[2023-01-31 09:26] LABS: ANISOCYTOSIS 1+; EOSINOPHILS % (MANUAL) 5 % (0-4); LYMPHOCYTES % (MANUAL) 13 % (16-48); MONOCYTES % (MANUAL) 7 % (0-11.0); NEUTROPHILS % (MANUAL) 75 (42-76); PLATELET ESTIMATE DECREASED
[2023-01-31] MEDS: ACETAMINOPHEN 650 MG/SUPP.RECT RC PRN (11:34)
[2023-01-31 12:00] VITALS: BP 118/57; TEMP 100; O2SAT 100
[2023-01-31] MEDS: IV 1/2NS 1000 ML 1,000 ML IV PRN (13:46)
[2023-01-31] MEDS: CEFTRIAXONE 2 G in IV D5W 100 ML IV SCH (14:01)
[2023-01-31 14:35] LABS: HIV-1 p24 ANTIGEN NON REACTIVE (NONREACTIVE); HIV-1/2 ANTIBODY NON REACTIVE (NONREACTIVE)
[2023-01-31 15:18] LABS: APPEARANCE,URINE CLEAR (CLEAR); BILIRUBIN,URINE NEGATIVE (NEGATIVE); BLOOD, URINE NEGATIVE Ery/uL (NEGATIVE); COLOR,URINE YELLOW (YELLOW); KETONES,URINE NEGATIVE (NEGATIVE); LEUKOCYTE ESTERASE ,URINE 1+ (NEGATIVE); NITRITE, URINE NEGATIVE (NEGATIVE); PROTEIN,URINE TRACE mg/dl (NEGATIVE); UGLUCOSE NEGATIVE (NEGATIVE); UROBILINOGEN,URINE 0.2 EU/dL (0.2)
[2023-01-31 15:38] LABS: ADD URINE CULTURE YES; BACTERIA,URINE 1+ /HPF (None Seen); RBC,URINE 0-2 /HPF (0-2)
[2023-01-31 16:00] VITALS: BP 123/56; TEMP 100.4; O2SAT 100
[2023-01-31] MEDS: EPOETIN ALFA-EPBX 4,000 UNIT/ML VIAL SQ SCH (17:48)
[2023-01-31 20:00] VITALS: BP 121/66; TEMP 98.9; O2SAT 100
[2023-01-31] MEDS: INSULIN GLARGINE, 100 UNIT/ML CARTRIDGE SQ SCH (21:36)
[2023-02-01] VITALS: BP 115/85; TEMP 98.9; O2SAT 100
[2023-02-01] MEDS: VANCOMYCIN 1 GM in IV D5W 250 ML IV SCH (00:08)
[2023-02-01] MEDS: BLOOD SUGAR DIAGNOSTIC 1 EACH STRIP IN SCH ×4 (00:21→18:04)
[2023-02-01] MEDS: INSULIN REGULAR, HUMAN 100 UNIT/ML 3 ML VIAL SQ PRN ×4 (00:41→18:06)
[2023-02-01] MEDS: IV 1/2NS 1000 ML 1,000 ML IV PRN ×3 (01:18→22:36)
[2023-02-01 04:00] VITALS: BP 125/50; TEMP 98.6; O2SAT 100
[2023-02-01] MEDS: NEPRO 1,000 ML BOTTLE GT PRN (06:12)
[2023-02-01 07:00] VITALS: BP 127/60; TEMP 98.1; O2SAT 95
[2023-02-01 07:19] LABS: CALCIUM, SERUM 9.8 mg/dL (8.5-10.1); CREATININE 1.8 mg/dL (0.6-1.3); MAGNESIUM 2.1 mg/dL (1.8-2.4); POTASSIUM 3.8 mmol/L (3.5-5.1)
[2023-02-01 07:29] LABS: BASOPHILS % (AUTO) 0.7 % (0.0-2.0); EOSINOPHILS # (AUTO) 0.5 K/uL (0.0-0.7); EOSINOPHILS % (AUTO) 11.5 % (0.0-6.0); HEMATOCRIT 23 % (33-45); HEMOGLOBIN 7.5 g/dL (11.5-14.8); LYMPHOCYTES # (AUTO) 0.6 K/uL (0.8-4.8); LYMPHOCYTES % (AUTO) 12.7 % (20.0-44.0); MEAN CORPUSCULAR HEMOGLOBIN 33 PG (26.0-33.0); MEAN CORPUSCULAR HGB CONC 32 g/dl (31.0-36.0); MEAN CORPUSCULAR VOLUME 104 fL (82-100); MONOCYTES # (AUTO) 0.7 K/uL (0.1-1.30); NEUTROPHILS # (AUTO) 2.9 K/uL (1.8-8.9); NEUTROPHILS % (AUTO) 61.1 % (43.0-81.0); PLATELET COUNT (AUTO) 62 K/uL (150-450); RED BLOOD CELL COUNT(AUTO) 2.24 MIL/uL (4.0-5.2); RED CELL DISTRIBUTION WIDTH 22.2 % (11.5-15.0); WHITE BLOOD COUNT (AUTO) 4.7 K/uL (4.3-11.0)
[2023-02-01 08:07] LABS: HEPATITIS B CORE AB, TOTAL Negative (Negative); HEPATITIS B SURFACE AB Non Reactive (.)
[2023-02-01] MEDS: ENOXAPARIN SODIUM 30 MG/0.3 ML DISP.SYRIN SQ SCH ×2 (09:00→09:44)
[2023-02-01] MEDS: PROSOURCE / PROSTAT (PYXIS) 30 ML UDC GT SCH (09:41)
[2023-02-01] MEDS: ARGININE/GLUTAMINE/CALCIUM BMB 1 EACH POWD.PACK GT SCH ×2 (09:41→17:22)
[2023-02-01] MEDS: FERROUS SULFATE UDC 300 MG/5 ML UDC GT SCH (09:41)
[2023-02-01] MEDS: AMLODIPINE BESYLATE 5 MG TABLET GT SCH (09:42)
[2023-02-01] MEDS: METOPROLOL TARTRATE 25 MG TABLET GT SCH ×2 (09:45→17:22)
[2023-02-01] MEDS: THERAHONEY GEL 1.5 OZ TUBE TP SCH (10:12)
[2023-02-01 10:22] LABS: ANISOCYTOSIS 1+; BAND % (MANUAL) 5 % (0.0-5.0); EOSINOPHILS % (MANUAL) 12 % (0-4); LYMPHOCYTES % (MANUAL) 9 % (16-48); MONOCYTES % (MANUAL) 9 % (0-11.0); NEUTROPHILS % (MANUAL) 65 (42-76); PLATELET ESTIMATE DECREASED
[2023-02-01 12:00] VITALS: BP 122/58; TEMP 98; O2SAT 100
[2023-02-01] MEDS: CEFTRIAXONE 2 G in IV D5W 100 ML IV SCH (15:23)
[2023-02-01 16:00] VITALS: BP 126/68; TEMP 98; O2SAT 100
[2023-02-01 20:00] VITALS: BP 117/52; TEMP 98.9; O2SAT 100
[2023-02-01] MEDS: INSULIN GLARGINE, 100 UNIT/ML CARTRIDGE SQ SCH (22:27)
[2023-02-02] VITALS (13 sets, daily range): BP systolic 110–137; BP diastolic 49–63; TEMP 98.4–100.2; O2SAT 100
[2023-02-02] MEDS: BLOOD SUGAR DIAGNOSTIC 1 EACH STRIP IN SCH ×4 (00:07→17:18)
[2023-02-02] MEDS: INSULIN REGULAR, HUMAN 100 UNIT/ML 3 ML VIAL SQ PRN ×4 (00:12→17:21)
[2023-02-02 06:26] LABS: BASOPHILS % (AUTO) 0.7 % (0.0-2.0); EOSINOPHILS # (AUTO) 0.5 K/uL (0.0-0.7); EOSINOPHILS % (AUTO) 11.1 % (0.0-6.0); HEMATOCRIT 21 % (33-45); LYMPHOCYTES # (AUTO) 0.6 K/uL (0.8-4.8); LYMPHOCYTES % (AUTO) 14.7 % (20.0-44.0); MEAN CORPUSCULAR HEMOGLOBIN 33 PG (26.0-33.0); MEAN CORPUSCULAR HGB CONC 33 g/dl (31.0-36.0); MEAN CORPUSCULAR VOLUME 101 fL (82-100); MONOCYTES # (AUTO) 0.6 K/uL (0.1-1.30); MONOCYTES % (AUTO) 13.1 % (2.0-12.0); NEUTROPHILS # (AUTO) 2.7 K/uL (1.8-8.9); NEUTROPHILS % (AUTO) 60.4 % (43.0-81.0); PLATELET COUNT (AUTO) 56 K/uL (150-450); RED BLOOD CELL COUNT(AUTO) 2.08 MIL/uL (4.0-5.2); WHITE BLOOD COUNT (AUTO) 4.4 K/uL (4.3-11.0)
[2023-02-02 06:34] LABS: HEMOGLOBIN 6.8 g/dL (11.5-14.8)
[2023-02-02 06:44] LABS: BILIRUBIN,TOTAL 0.4 mg/dL (0.2-1.0); CALCIUM, SERUM 9.7 mg/dL (8.5-10.1); CREATININE 1.9 mg/dL (0.6-1.3); MAGNESIUM 1.8 mg/dL (1.8-2.4); POTASSIUM 3.7 mmol/L (3.5-5.1); TOTAL PROTEIN, SERUM 6.3 g/dL (6.4-8.2)
[2023-02-02 07:53] LABS: ANISOCYTOSIS 1+; BAND % (MANUAL) 2 % (0.0-5.0); EOSINOPHILS % (MANUAL) 13 % (0-4); LYMPHOCYTES % (MANUAL) 8 % (16-48); MONOCYTES % (MANUAL) 7 % (0-11.0); MYELOCYTES % 2 % (0-0); NEUTROPHILS % (MANUAL) 68 (42-76); PLATELET ESTIMATE DECREASED
[2023-02-02] MEDS: ENOXAPARIN SODIUM 30 MG/0.3 ML DISP.SYRIN SQ SCH (09:00)
[2023-02-02] MEDS: FERROUS SULFATE UDC 300 MG/5 ML UDC GT SCH (09:18)
[2023-02-02] MEDS: METOPROLOL TARTRATE 25 MG TABLET GT SCH ×2 (09:19→17:19)
[2023-02-02] MEDS: THERAHONEY GEL 1.5 OZ TUBE TP SCH (09:19)
[2023-02-02] MEDS: AMLODIPINE BESYLATE 5 MG TABLET GT SCH (09:19)
[2023-02-02] MEDS: PROSOURCE / PROSTAT (PYXIS) 30 ML UDC GT SCH (09:29)
[2023-02-02] MEDS: ARGININE/GLUTAMINE/CALCIUM BMB 1 EACH POWD.PACK GT SCH ×2 (09:29→17:18)
[2023-02-02] MEDS: IV 1/2NS 1000 ML 1,000 ML IV PRN (12:28)
[2023-02-02] MEDS: CEFTRIAXONE 2 G in IV D5W 100 ML IV SCH (15:58)
[2023-02-02] MEDS: NEPRO 1,000 ML BOTTLE GT PRN (16:12)
[2023-02-02] MEDS: INSULIN GLARGINE, 100 UNIT/ML CARTRIDGE SQ SCH (22:00)
[2023-02-03] MEDS: BLOOD SUGAR DIAGNOSTIC 1 EACH STRIP IN SCH ×5 (00:05→23:46)
[2023-02-03] MEDS: INSULIN REGULAR, HUMAN 100 UNIT/ML 3 ML VIAL SQ PRN ×3 (00:06→23:55)
[2023-02-03 00:41] VITALS: BP 124/106; TEMP 100; O2SAT 100
[2023-02-03] MEDS ORDERED: VANCOMYCIN HCL 0.75 GM in IV D5W 250 ML IV SCH ×2 (01:00→04:00)
[2023-02-03 04:00] VITALS: BP 128/58; TEMP 100.8; O2SAT 100
[2023-02-03 06:45] LABS: BASOPHILS % (AUTO) 0.1 % (0.0-2.0); EOSINOPHILS # (AUTO) 0.5 K/uL (0.0-0.7); EOSINOPHILS % (AUTO) 9.8 % (0.0-6.0); HEMATOCRIT 25 % (33-45); HEMOGLOBIN 8.1 g/dL (11.5-14.8); LYMPHOCYTES # (AUTO) 0.1 K/uL (0.8-4.8); LYMPHOCYTES % (AUTO) 1.1 % (20.0-44.0); MEAN CORPUSCULAR HEMOGLOBIN 32 PG (26.0-33.0); MEAN CORPUSCULAR HGB CONC 33 g/dl (31.0-36.0); MEAN CORPUSCULAR VOLUME 95 fL (82-100); MONOCYTES # (AUTO) 1.4 K/uL (0.1-1.30); MONOCYTES % (AUTO) 28.3 % (2.0-12.0); NEUTROPHILS # (AUTO) 3.1 K/uL (1.8-8.9); NEUTROPHILS % (AUTO) 60.7 % (43.0-81.0); PLATELET COUNT (AUTO) 51 K/uL (150-450); RED BLOOD CELL COUNT(AUTO) 2.58 MIL/uL (4.0-5.2); RED CELL DISTRIBUTION WIDTH 21.6 % (11.5-15.0); WHITE BLOOD COUNT (AUTO) 5.1 K/uL (4.3-11.0)
[2023-02-03 07:30] VITALS: BP 133/61; TEMP 99.1; O2SAT 100
[2023-02-03 07:48] LABS: ALBUMIN 1.9 g/dL (3.4-5.0); BILIRUBIN,TOTAL 0.4 mg/dL (0.2-1.0); CALCIUM, SERUM 9.8 mg/dL (8.5-10.1); CREATININE 1.9 mg/dL (0.6-1.3); PHOSPHORUS 3.2 mg/dL (2.5-4.9); POTASSIUM 3.7 mmol/L (3.5-5.1); TOTAL PROTEIN, SERUM 6.3 g/dL (6.4-8.2)
[2023-02-03] MEDS: FERROUS SULFATE UDC 300 MG/5 ML UDC GT SCH (08:34)
[2023-02-03] MEDS: METOPROLOL TARTRATE 25 MG TABLET GT SCH ×2 (08:34→16:17)
[2023-02-03] MEDS: AMLODIPINE BESYLATE 5 MG TABLET GT SCH (08:34)
[2023-02-03] MEDS: ENOXAPARIN SODIUM 30 MG/0.3 ML DISP.SYRIN SQ SCH (08:35)
[2023-02-03] MEDS: ARGININE/GLUTAMINE/CALCIUM BMB 1 EACH POWD.PACK GT SCH ×2 (09:00→16:18)
[2023-02-03] MEDS: THERAHONEY GEL 1.5 OZ TUBE TP SCH (09:00)
[2023-02-03] MEDS: PROSOURCE / PROSTAT (PYXIS) 30 ML UDC GT SCH (09:00)
[2023-02-03 10:23] LABS: BAND % (MANUAL) 1 % (0.0-5.0); EOSINOPHILS % (MANUAL) 15 % (0-4); LYMPHOCYTES % (MANUAL) 18 % (16-48); MONOCYTES % (MANUAL) 10 % (0-11.0); NEUTROPHILS % (MANUAL) 56 (42-76)
[2023-02-03 10:24] LABS: ANISOCYTOSIS 1+; PLATELET ESTIMATE DECREASED
[2023-02-03] MEDS ORDERED: LIDOCAINE HCL/MPF 1% 30 ML VIAL IJ ONE (14:54)
[2023-02-03] MEDS ORDERED: HEPARIN SODIUM, PORCINE 1,000 UNIT/ML VIAL ONE (14:54)
[2023-02-03] MEDS ORDERED: IOHEXOL 0 ML IV ONE (14:55)
[2023-02-03] MEDS: EPOETIN ALFA-EPBX 4,000 UNIT/ML VIAL SQ SCH (15:11)
[2023-02-03] MEDS: CEFTRIAXONE 2 G in IV D5W 100 ML IV SCH (15:15)
[2023-02-03 16:00] VITALS: BP 133/59; TEMP 98.8; O2SAT 100
[2023-02-03 18:30] VITALS: BP 121/61; TEMP 99.5; O2SAT 100
[2023-02-03] MEDS: NEPRO 1,000 ML BOTTLE GT PRN (18:37)
[2023-02-03 20:00] VITALS: BP 121/56; TEMP 98.2; O2SAT 100
[2023-02-03] MEDS: INSULIN GLARGINE, 100 UNIT/ML CARTRIDGE SQ SCH (23:54)
[2023-02-03] MEDS: IV 1/2NS 1000 ML 1,000 ML IV PRN (23:56)
[2023-02-04] VITALS: BP 136/56; TEMP 97.9; O2SAT 100
[2023-02-04 04:00] VITALS: BP 120/58; TEMP 97.9; O2SAT 100
[2023-02-04 06:01] LABS: BASOPHILS % (AUTO) 0.6 % (0.0-2.0); EOSINOPHILS # (AUTO) 0.4 K/uL (0.0-0.7); EOSINOPHILS % (AUTO) 7.5 % (0.0-6.0); HEMATOCRIT 24 % (33-45); HEMOGLOBIN 8.1 g/dL (11.5-14.8); LYMPHOCYTES # (AUTO) 0.8 K/uL (0.8-4.8); LYMPHOCYTES % (AUTO) 14.2 % (20.0-44.0); MEAN CORPUSCULAR HEMOGLOBIN 32 PG (26.0-33.0); MEAN CORPUSCULAR HGB CONC 34 g/dl (31.0-36.0); MEAN CORPUSCULAR VOLUME 95 fL (82-100); MONOCYTES # (AUTO) 0.7 K/uL (0.1-1.30); MONOCYTES % (AUTO) 13.7 % (2.0-12.0); NEUTROPHILS # (AUTO) 3.5 K/uL (1.8-8.9); RED BLOOD CELL COUNT(AUTO) 2.56 MIL/uL (4.0-5.2); WHITE BLOOD COUNT (AUTO) 5.4 K/uL (4.3-11.0)
[2023-02-04] MEDS: BLOOD SUGAR DIAGNOSTIC 1 EACH STRIP IN SCH ×3 (06:08→17:35)
[2023-02-04] MEDS: INSULIN REGULAR, HUMAN 100 UNIT/ML 3 ML VIAL SQ PRN ×3 (06:09→17:50)
[2023-02-04 06:18] LABS: PLATELET COUNT (AUTO) 49 K/uL (150-450)
[2023-02-04 06:48] LABS: CALCIUM, SERUM 9.2 mg/dL (8.5-10.1); CREATININE 1.9 mg/dL (0.6-1.3); MAGNESIUM 1.9 mg/dL (1.8-2.4); PHOSPHORUS 3.9 mg/dL (2.5-4.9); POTASSIUM 3.6 mmol/L (3.5-5.1)
[2023-02-04 07:00] VITALS: BP 122/50; TEMP 98.6; O2SAT 100
[2023-02-04] MEDS: ENOXAPARIN SODIUM 30 MG/0.3 ML DISP.SYRIN SQ SCH (09:00)
[2023-02-04] MEDS ORDERED: MANNITOL 12.5 GM/50 ML VIAL IV ONE (09:00)
[2023-02-04] MEDS: FERROUS SULFATE UDC 300 MG/5 ML UDC GT SCH (09:28)
[2023-02-04] MEDS: PROSOURCE / PROSTAT (PYXIS) 30 ML UDC GT SCH (09:29)
[2023-02-04] MEDS: ARGININE/GLUTAMINE/CALCIUM BMB 1 EACH POWD.PACK GT SCH ×2 (09:29→16:38)
[2023-02-04] MEDS: THERAHONEY GEL 1.5 OZ TUBE TP SCH (09:34)
[2023-02-04] MEDS: METOPROLOL TARTRATE 25 MG TABLET GT SCH ×2 (10:08→16:38)
[2023-02-04] MEDS: AMLODIPINE BESYLATE 5 MG TABLET GT SCH (10:10)
[2023-02-04] MEDS ORDERED: MANNITOL 25 GM in IV D5W 50 ML IV PRN ×2 (12:30→18:00)
[2023-02-04 12:50] VITALS: BP 119/55; TEMP 98.4; O2SAT 100
[2023-02-04 16:30] VITALS: BP 128/56; TEMP 98.8; O2SAT 100
[2023-02-04] MEDS: NEPRO 1,000 ML BOTTLE GT PRN (16:46)
[2023-02-04 16:47] LABS: ANISOCYTOSIS 1+; BAND % (MANUAL) 1 % (0.0-5.0); EOSINOPHILS % (MANUAL) 8 % (0-4); LYMPHOCYTES % (MANUAL) 11 % (16-48); MONOCYTES % (MANUAL) 4 % (0-11.0); NEUTROPHILS % (MANUAL) 76 (42-76); PLATELET ESTIMATE DECREASED
[2023-02-04] MEDS: IV 1/2NS 1000 ML 1,000 ML IV PRN (17:35)
[2023-02-04 20:00] VITALS: BP 103/64; TEMP 100.4; O2SAT 100
[2023-02-04] MEDS: INSULIN GLARGINE, 100 UNIT/ML CARTRIDGE SQ SCH (22:13)
[2023-02-05] VITALS: BP 115/58; TEMP 99; O2SAT 100
[2023-02-05] MEDS: BLOOD SUGAR DIAGNOSTIC 1 EACH STRIP IN SCH ×5 (00:07→23:35)
[2023-02-05 04:00] VITALS: BP 113/49; TEMP 99; O2SAT 100
[2023-02-05] MEDS: INSULIN REGULAR, HUMAN 100 UNIT/ML 3 ML VIAL SQ PRN ×4 (05:53→23:39)
[2023-02-05 05:58] LABS: BASOPHILS % (AUTO) 0.6 % (0.0-2.0); EOSINOPHILS # (AUTO) 0.4 K/uL (0.0-0.7); EOSINOPHILS % (AUTO) 7.5 % (0.0-6.0); HEMATOCRIT 23 % (33-45); HEMOGLOBIN 7.9 g/dL (11.5-14.8); LYMPHOCYTES # (AUTO) 0.8 K/uL (0.8-4.8); LYMPHOCYTES % (AUTO) 15.3 % (20.0-44.0); MEAN CORPUSCULAR HEMOGLOBIN 32 PG (26.0-33.0); MEAN CORPUSCULAR HGB CONC 34 g/dl (31.0-36.0); MEAN CORPUSCULAR VOLUME 96 fL (82-100); MONOCYTES # (AUTO) 0.7 K/uL (0.1-1.30); MONOCYTES % (AUTO) 12.7 % (2.0-12.0); NEUTROPHILS # (AUTO) 3.4 K/uL (1.8-8.9); NEUTROPHILS % (AUTO) 63.9 % (43.0-81.0); PLATELET COUNT (AUTO) 51 K/uL (150-450); RED BLOOD CELL COUNT(AUTO) 2.44 MIL/uL (4.0-5.2); RED CELL DISTRIBUTION WIDTH 21.8 % (11.5-15.0); WHITE BLOOD COUNT (AUTO) 5.4 K/uL (4.3-11.0)
[2023-02-05 06:13] LABS: CALCIUM, SERUM 8.6 mg/dL (8.5-10.1); CREATININE 1.7 mg/dL (0.6-1.3); MAGNESIUM 1.9 mg/dL (1.8-2.4); PHOSPHORUS 2.7 mg/dL (2.5-4.9); POTASSIUM 3.4 mmol/L (3.5-5.1)
[2023-02-05 08:00] VITALS: BP 132/51; TEMP 98.9; O2SAT 92
[2023-02-05 08:54] LABS: OCCULT BLOOD STOOL NEGATIVE (NEGATIVE)
[2023-02-05] MEDS: ENOXAPARIN SODIUM 30 MG/0.3 ML DISP.SYRIN SQ SCH (09:00)
[2023-02-05] MEDS: ARGININE/GLUTAMINE/CALCIUM BMB 1 EACH POWD.PACK GT SCH ×2 (09:35→18:11)
[2023-02-05] MEDS: PROSOURCE / PROSTAT (PYXIS) 30 ML UDC GT SCH (09:35)
[2023-02-05] MEDS: AMLODIPINE BESYLATE 5 MG TABLET GT SCH (09:35)
[2023-02-05] MEDS: FERROUS SULFATE UDC 300 MG/5 ML UDC GT SCH (09:35)
[2023-02-05] MEDS: METOPROLOL TARTRATE 25 MG TABLET GT SCH ×2 (09:36→18:12)
[2023-02-05] MEDS: THERAHONEY GEL 1.5 OZ TUBE TP SCH (09:36)
[2023-02-05 11:05] LABS: ANISOCYTOSIS 1+; BAND % (MANUAL) 3 % (0.0-5.0); EOSINOPHILS % (MANUAL) 6 % (0-4); LYMPHOCYTES % (MANUAL) 15 % (16-48); MONOCYTES % (MANUAL) 13 % (0-11.0); NEUTROPHILS % (MANUAL) 63 (42-76); PLATELET ESTIMATE DECREASED
[2023-02-05] MEDS ORDERED: POTASSIUM CHLORIDE 20 MEQ POWDER PACKET NG SCH (11:30)
[2023-02-05] MEDS: EPOETIN ALFA-EPBX 4,000 UNIT/ML VIAL SQ SCH (15:06)
[2023-02-05 16:00] VITALS: BP 125/60; TEMP 98.8; O2SAT 99
[2023-02-05 20:00] VITALS: BP 143/83; TEMP 100.9; O2SAT 100
[2023-02-05] MEDS: NEPRO 1,000 ML BOTTLE GT PRN (21:13)
[2023-02-05 22:02] VITALS: BP 143/83; TEMP 100.9; O2SAT 100
[2023-02-05] MEDS: INSULIN GLARGINE, 100 UNIT/ML CARTRIDGE SQ SCH (22:06)
[2023-02-05] MEDS: ACETAMINOPHEN 650 MG/SUPP.RECT RC PRN (22:13)
[2023-02-06] VITALS (7 sets, daily range): BP systolic 108–119; BP diastolic 44–55; TEMP 98.8–102.6; O2SAT 98–100
[2023-02-06] MEDS: ACETAMINOPHEN 650 MG/SUPP.RECT RC PRN (04:35)
[2023-02-06] MEDS: BLOOD SUGAR DIAGNOSTIC 1 EACH STRIP IN SCH ×3 (05:43→17:09)
[2023-02-06] MEDS: INSULIN REGULAR, HUMAN 100 UNIT/ML 3 ML VIAL SQ PRN ×2 (05:47→17:39)
[2023-02-06 06:19] LABS: CALCIUM, SERUM 8.6 mg/dL (8.5-10.1); CREATININE 1.5 mg/dL (0.6-1.3); MAGNESIUM 1.9 mg/dL (1.8-2.4); PHOSPHORUS 1.5 mg/dL (2.5-4.9)
[2023-02-06 06:34] LABS: BASOPHILS % (AUTO) 0.6 % (0.0-2.0); EOSINOPHILS # (AUTO) 0.5 K/uL (0.0-0.7); EOSINOPHILS % (AUTO) 7.7 % (0.0-6.0); HEMATOCRIT 23 % (33-45); HEMOGLOBIN 7.9 g/dL (11.5-14.8); LYMPHOCYTES # (AUTO) 1.2 K/uL (0.8-4.8); MEAN CORPUSCULAR HEMOGLOBIN 32 PG (26.0-33.0); MEAN CORPUSCULAR HGB CONC 34 g/dl (31.0-36.0); MEAN CORPUSCULAR VOLUME 94 fL (82-100); MONOCYTES # (AUTO) 0.8 K/uL (0.1-1.30); MONOCYTES % (AUTO) 12.7 % (2.0-12.0); NEUTROPHILS # (AUTO) 3.5 K/uL (1.8-8.9); PLATELET COUNT (AUTO) 55 K/uL (150-450); RED BLOOD CELL COUNT(AUTO) 2.45 MIL/uL (4.0-5.2)
[2023-02-06 07:53] LABS: ANISOCYTOSIS 1+; BAND % (MANUAL) 6 % (0.0-5.0); EOSINOPHILS % (MANUAL) 5 % (0-4); LYMPHOCYTES % (MANUAL) 14 % (16-48); MONOCYTES % (MANUAL) 10 % (0-11.0); NEUTROPHILS % (MANUAL) 65 (42-76); PLATELET ESTIMATE DECREASED
[2023-02-06] MEDS: ENOXAPARIN SODIUM 30 MG/0.3 ML DISP.SYRIN SQ SCH (09:00)
[2023-02-06] MEDS: FERROUS SULFATE UDC 300 MG/5 ML UDC GT SCH (09:08)
[2023-02-06] MEDS: AMLODIPINE BESYLATE 5 MG TABLET GT SCH (09:09)
[2023-02-06] MEDS: METOPROLOL TARTRATE 25 MG TABLET GT SCH ×2 (09:09→17:09)
[2023-02-06] MEDS: PROSOURCE / PROSTAT (PYXIS) 30 ML UDC GT SCH (09:10)
[2023-02-06] MEDS: ARGININE/GLUTAMINE/CALCIUM BMB 1 EACH POWD.PACK GT SCH ×2 (09:10→17:07)
[2023-02-06] MEDS: THERAHONEY GEL 1.5 OZ TUBE TP SCH (09:49)
[2023-02-06] MEDS: POTASSIUM CHLORIDE 20 MEQ TAB.PRT.SR PO SCH ×2 (11:06→13:20)
[2023-02-06] MEDS ORDERED: POTASSIUM CL. PREMIX PERIPHER. 50 ML IV SCH (12:00)
[2023-02-06] MEDS ORDERED: NEUTRA PHOS 1 POWD.PACKET GT ONE (16:30)
[2023-02-06] MEDS ORDERED: NEUTRA PHOS 1 POWD.PACKET PO ONE (16:30)
[2023-02-06] MEDS: INSULIN GLARGINE, 100 UNIT/ML CARTRIDGE SQ SCH (21:29)
[2023-02-07] VITALS: BP 131/52; TEMP 101; TEMP 101.2; TEMP 101.3; O2SAT 100
[2023-02-07] MEDS: BLOOD SUGAR DIAGNOSTIC 1 EACH STRIP IN SCH ×5 (00:46→23:32)
[2023-02-07] MEDS: INSULIN REGULAR, HUMAN 100 UNIT/ML 3 ML VIAL SQ PRN ×3 (00:47→22:39)
[2023-02-07] MEDS: ACETAMINOPHEN 650 MG/SUPP.RECT RC PRN (00:51)
[2023-02-07] MEDS: NEPRO 1,000 ML BOTTLE GT PRN (04:56)
[2023-02-07 05:00] VITALS: BP 120/59; TEMP 99.5; O2SAT 100
[2023-02-07 06:21] LABS: BASOPHILS # (AUTO) 0.1 K/uL (0.0-0.2); EOSINOPHILS # (AUTO) 0.5 K/uL (0.0-0.7); EOSINOPHILS % (AUTO) 8.9 % (0.0-6.0); LYMPHOCYTES % (AUTO) 19.2 % (20.0-44.0); MEAN CORPUSCULAR HEMOGLOBIN 33 PG (26.0-33.0); MEAN CORPUSCULAR HGB CONC 34 g/dl (31.0-36.0); MEAN CORPUSCULAR VOLUME 95 fL (82-100); MONOCYTES # (AUTO) 0.7 K/uL (0.1-1.30); MONOCYTES % (AUTO) 13.4 % (2.0-12.0); NEUTROPHILS # (AUTO) 3.1 K/uL (1.8-8.9); NEUTROPHILS % (AUTO) 57.5 % (43.0-81.0); RED CELL DISTRIBUTION WIDTH 22.2 % (11.5-15.0); WHITE BLOOD COUNT (AUTO) 5.4 K/uL (4.3-11.0)
[2023-02-07 06:26] LABS: CALCIUM, SERUM 7.9 mg/dL (8.5-10.1); CREATININE 1.5 mg/dL (0.6-1.3); MAGNESIUM 1.8 mg/dL (1.8-2.4); PHOSPHORUS 1.7 mg/dL (2.5-4.9); POTASSIUM 4.2 mmol/L (3.5-5.1)
[2023-02-07 06:34] LABS: HEMATOCRIT 20 % (33-45); HEMOGLOBIN 6.9 g/dL (11.5-14.8); PLATELET COUNT (AUTO) 48 K/uL (150-450)
[2023-02-07 07:49] LABS: HEMOGLOBIN 7.2 g/dL (11.5-14.8)
[2023-02-07] MEDS: METRONIDAZOLE 500 MG TABLET GT SCH ×3 (08:11→21:44)
[2023-02-07 08:37] VITALS: BP 112/50; TEMP 98.4; O2SAT 100
[2023-02-07] MEDS: ARGININE/GLUTAMINE/CALCIUM BMB 1 EACH POWD.PACK GT SCH ×2 (08:50→16:38)
[2023-02-07] MEDS: FERROUS SULFATE UDC 300 MG/5 ML UDC GT SCH (08:50)
[2023-02-07] MEDS: AMLODIPINE BESYLATE 5 MG TABLET GT SCH (08:51)
[2023-02-07] MEDS: PROSOURCE / PROSTAT (PYXIS) 30 ML UDC GT SCH (08:51)
[2023-02-07] MEDS: METOPROLOL TARTRATE 25 MG TABLET GT SCH ×2 (08:51→16:42)
[2023-02-07] MEDS: ENOXAPARIN SODIUM 30 MG/0.3 ML DISP.SYRIN SQ SCH (08:52)
[2023-02-07] MEDS ORDERED: CEFEPIME 1 GM in IV D5W 50 ML IV ONE (09:00)
[2023-02-07] MEDS: THERAHONEY GEL 1.5 OZ TUBE TP SCH (09:46)
[2023-02-07] MEDS ORDERED: CEFE1FRO IV (10:03)
[2023-02-07] MEDS ORDERED: METR500T GT (10:03)
[2023-02-07] MEDS ORDERED: EPOE40007 SQ (10:03)
[2023-02-07 11:05] LABS: ANISOCYTOSIS 1+; EOSINOPHILS % (MANUAL) 12 % (0-4); LYMPHOCYTES % (MANUAL) 19 % (16-48); MONOCYTES % (MANUAL) 13 % (0-11.0); MYELOCYTES % 1 % (0-0); NEUTROPHILS % (MANUAL) 55 (42-76); PLATELET ESTIMATE DECREASED
[2023-02-07 12:00] VITALS: BP 108/40; TEMP 99; O2SAT 100
[2023-02-07] MEDS ORDERED: NEUTRA PHOS 1 POWD.PACKET NG ONE (15:30)
[2023-02-07] MEDS: EPOETIN ALFA-EPBX 4,000 UNIT/ML VIAL SQ SCH (15:32)
[2023-02-07 16:13] VITALS: BP 114/46; TEMP 99.9; O2SAT 100
[2023-02-07 19:00] VITALS: BP 116/50; TEMP 98.2; O2SAT 100
[2023-02-07] MEDS: INSULIN GLARGINE, 100 UNIT/ML CARTRIDGE SQ SCH (22:38)
[2023-02-07] MEDS ORDERED: CEFEPIME 1 GM in IV D5W 50 ML IV SCH (23:00)
[2023-02-08] VITALS: BP 110/50; TEMP 98; O2SAT 100
[2023-02-08] MEDS: METRONIDAZOLE 500 MG TABLET GT SCH ×2 (05:26→13:13)
[2023-02-08] MEDS: BLOOD SUGAR DIAGNOSTIC 1 EACH STRIP IN SCH ×2 (05:52→11:14)
[2023-02-08] MEDS: INSULIN REGULAR, HUMAN 100 UNIT/ML 3 ML VIAL SQ PRN ×2 (05:53→11:15)
[2023-02-08 06:55] LABS: BASOPHILS # (AUTO) 0.1 K/uL (0.0-0.2); BASOPHILS % (AUTO) 0.7 % (0.0-2.0); EOSINOPHILS # (AUTO) 0.5 K/uL (0.0-0.7); EOSINOPHILS % (AUTO) 6.3 % (0.0-6.0); HEMATOCRIT 23 % (33-45); HEMOGLOBIN 7.6 g/dL (11.5-14.8); LYMPHOCYTES # (AUTO) 1.1 K/uL (0.8-4.8); LYMPHOCYTES % (AUTO) 14.1 % (20.0-44.0); MEAN CORPUSCULAR HEMOGLOBIN 32 PG (26.0-33.0); MEAN CORPUSCULAR HGB CONC 34 g/dl (31.0-36.0); MEAN CORPUSCULAR VOLUME 95 fL (82-100); MONOCYTES # (AUTO) 0.9 K/uL (0.1-1.30); MONOCYTES % (AUTO) 11.8 % (2.0-12.0); NEUTROPHILS # (AUTO) 5.2 K/uL (1.8-8.9); NEUTROPHILS % (AUTO) 67.1 % (43.0-81.0); PLATELET COUNT (AUTO) 54 K/uL (150-450); RED BLOOD CELL COUNT(AUTO) 2.37 MIL/uL (4.0-5.2); WHITE BLOOD COUNT (AUTO) 7.8 K/uL (4.3-11.0)
[2023-02-08 07:30] VITALS: BP 122/54; TEMP 99.6; O2SAT 100
[2023-02-08 07:35] LABS: BILIRUBIN,TOTAL 0.6 mg/dL (0.2-1.0); CALCIUM, SERUM 8.4 mg/dL (8.5-10.1); CREATININE 1.9 mg/dL (0.6-1.3); PHOSPHORUS 2.7 mg/dL (2.5-4.9); POTASSIUM 4.4 mmol/L (3.5-5.1); TOTAL PROTEIN, SERUM 6.8 g/dL (6.4-8.2)
[2023-02-08 09:00] VITALS: BP 122/54
[2023-02-08] MEDS: ENOXAPARIN SODIUM 30 MG/0.3 ML DISP.SYRIN SQ SCH (09:00)
[2023-02-08] MEDS: AMLODIPINE BESYLATE 5 MG TABLET GT SCH (09:00)
[2023-02-08] MEDS: METOPROLOL TARTRATE 25 MG TABLET GT SCH (09:00)
[2023-02-08] MEDS: PROSOURCE / PROSTAT (PYXIS) 30 ML UDC GT SCH (09:06)
[2023-02-08] MEDS: ARGININE/GLUTAMINE/CALCIUM BMB 1 EACH POWD.PACK GT SCH (09:06)
[2023-02-08] MEDS: FERROUS SULFATE UDC 300 MG/5 ML UDC GT SCH (09:06)
[2023-02-08] MEDS: THERAHONEY GEL 1.5 OZ TUBE TP SCH (09:07)
[2023-02-08 10:04] LABS: BAND % (MANUAL) 2 % (0.0-5.0); EOSINOPHILS % (MANUAL) 7 % (0-4); LYMPHOCYTES % (MANUAL) 13 % (16-48); MONOCYTES % (MANUAL) 9 % (0-11.0); NEUTROPHILS % (MANUAL) 69 (42-76); PLATELET ESTIMATE DECREASED
[2023-02-08 10:05] LABS: ANISOCYTOSIS 2+
[2023-02-10] MEDS ORDERED: MULT-594 GT (18:40)
[2023-02-10] MEDS ORDERED: INSU100I26 SQ (18:40)
[2023-02-10] MEDS ORDERED: ZINC56.713 TP (18:40)
[2023-02-10] MEDS ORDERED: ALLA266C2 TP (18:40)
[2023-02-10] MEDS ORDERED: ACET-2605 PO (18:40)
[2023-02-10] MEDS ORDERED: POVI3780 TP (18:40)
[2023-02-10] MEDS ORDERED: PETR113O TP (18:40)
[2023-02-10] MEDS ORDERED: IPRA3AMP23 IH (18:40)
[2023-02-10] MEDS ORDERED: NEOM1OIN15 TP (18:40)
[2023-02-10] MEDS ORDERED: METRONIDAZOLE 500 MG TABLET GT SCH (21:00)
[2023-02-11] MEDS ORDERED: Medication Not On Formulary EA (Cefepime Hcl/Dextrose, Iso-Osm (Cefepime 1 Gm Injection) IV SCH (09:00)
== END 2023-02-08 16:00 | DRG 951 ==
LOC: ER 11:12 → TELE 13:25
PROVIDERS: ADMIT Nurse Practitioner Acute Care; ATTEND Nurse Practitioner Acute Care
PROC: 5A1955Z Respiratory Ventilation, Greater than 96 Consecutive Hours (ICD-10-PCS; principal; 2023-01-23)
PROC: 05H633Z Insertion of Infusion Device into Left Subclavian Vein, Percutaneous Approach (ICD-10-PCS; 2023-01-24)
PROC: B547ZZA Ultrasonography of Left Subclavian Vein, Guidance (ICD-10-PCS; 2023-01-24)
PROC: 0KBN0ZZ Excision of Right Hip Muscle, Open Approach (ICD-10-PCS; 2023-01-27)
PROC: 0KBP0ZZ Excision of Left Hip Muscle, Open Approach (ICD-10-PCS; 2023-01-27)
PROC: 30233N1 Transfusion of Nonautologous Red Blood Cells into Peripheral Vein, Percutaneous Approach (ICD-10-PCS; 2023-01-27)
PROC: 0KBP0ZZ Excision of Left Hip Muscle, Open Approach (ICD-10-PCS; 2023-02-03)
PROC: 0KBN0ZZ Excision of Right Hip Muscle, Open Approach (ICD-10-PCS; 2023-02-03)
PROC: 0JH63XZ Insertion of Tunneled Vascular Access Device into Chest Subcutaneous Tissue and Fascia, Percutaneous Approach (ICD-10-PCS; 2023-02-03)
PROC: 02HV33Z Insertion of Infusion Device into Superior Vena Cava, Percutaneous Approach (ICD-10-PCS; 2023-02-03)
PROC: B518YZA Fluoroscopy of Superior Vena Cava using Other Contrast, Guidance (ICD-10-PCS; 2023-02-03)
PROC: 5A1D70Z Performance of Urinary Filtration, Intermittent, Less than 6 Hours Per Day (ICD-10-PCS; 2023-02-04)
DX: N17.9 Acute kidney failure, unspecified (principal); G93.41 Metabolic encephalopathy; A41.9 Sepsis, unspecified organism; L89.154 Pressure ulcer of sacral region, stage 4; J90 Pleural effusion, not elsewhere classified; R53.2 Functional quadriplegia; D69.6 Thrombocytopenia, unspecified; E87.20 Acidosis, unspecified; E87.0 Hyperosmolality and hypernatremia; D63.8 Anemia in other chronic diseases classified elsewhere; J96.10 Chronic respiratory failure, unspecified whether with hypoxia or hypercapnia; E86.0 Dehydration; E11.22 Type 2 diabetes mellitus with diabetic chronic kidney disease; Z99.11 Dependence on respirator [ventilator] status; I12.9 Hypertensive chronic kidney disease with stage 1 through stage 4 chronic kidney disease, or unspecified chronic kidney disease; F03.90 Unspecified dementia, unspecified severity, without behavioral disturbance, psychotic disturbance, mood disturbance, and anxiety; N18.32 Chronic kidney disease, stage 3b; Z89.612 Acquired absence of left leg above knee; Z79.4 Long term (current) use of insulin; Z89.611 Acquired absence of right leg above knee; R13.10 Dysphagia, unspecified; E87.6 Hypokalemia; Z66 Do not resuscitate; Z93.0 Tracheostomy status; Z93.1 Gastrostomy status; Z20.822 Contact with and (suspected) exposure to COVID-19; M24.552 Contracture, left hip; M24.551 Contracture, right hip; M24.521 Contracture, right elbow; M24.531 Contracture, right wrist; N25.0 Renal osteodystrophy; E11.21 Type 2 diabetes mellitus with diabetic nephropathy; K92.2 Gastrointestinal hemorrhage, unspecified; E56.9 Vitamin deficiency, unspecified; J98.11 Atelectasis; N18.6 End stage renal disease
CPT/HCPCS: 31720; 36410; 36415; 36600; 71045-TC; 80048-TC; 80053-TC; 80076-TC; 80202-TC; 81001; 82272-TC; 82962-TC; 83735-TC; 84100-TC; 85025-TC; 85027-TC; 86704; 86706; 86803; 86850-TC; 87040-TC; 87081-TC; 87086-TC; 87340; 87806; 90935-TC; 94003-TC; 94760-TC; 94762-TC; 94799-TC; A4223; A4623; A6253; A6403; A7526; C1750; C1769; G0378; J0692; J0696; J0885; J1644; J1650; J1815; J2150; J2185; J3370; J3480; J3490; J7030; J7040; J7050; J7060; J7070; P9016; Q9967